=== PATIENT | female | born 1955 | race Caucasian/White ===

== ENCOUNTER 2016-05-11 12:39 | Inpatient (IN) | payer OTHER ==
[~2016-05-11] VITALS: Ht 157.5 cm; Wt 96.1 kg
[~2016-05-11 12:39] MED LIST: ALBU1AER9 INH; ALBU1NEB10 INH; DILT1TAB50 PO; MULTTAB58 PO; NTRGSL/4 UT; OMEP40CA41 PO; ONDA4TAB65 PO; PROP225T PO; RIVA1TAB4 PO
[2016-05-11] MEDS ORDERED: DILTIAZEM BOLUS / DRIP IV STA ×2 (12:57→16:22)
[2016-05-11] MEDS ORDERED: DILTIAZEM HCL INJ 125 MG in DEXTROSE 5% 100ML IV PRN (13:30)
[2016-05-11 13:35] VITALS: BP 124/73; PULSE 77; TEMP 37.4; O2SAT 95; Ht 157.5 cm; Wt 96.1 kg
--- NOTE | 2016-05-11 13:39 | DIAGNOSTIC IMAGING REPORT ---
CHEST ONE VIEW PORTABLE CLINICAL HISTORY: Chest Pain dyspnea COMPARISON STUDY: 03/19/2016 FINDINGS: The bones soft tissues and hemidiaphragms are normal. The cardiomediastinal silhouette is normal. The lungs are clear. The pulmonary vasculature is normal. IMPRESSION: Negative chest. Electronically signed by: Jay Tillman M.D. 05/11/2016 1:37 PM
[2016-05-11] MEDS ORDERED: DILTIAZEM HCL 5 MG/ML 5 ML VIAL IV ONE (14:00)
[2016-05-11 14:39] LABS: BASO % 0.4 %; BASO ABS # 0.05 K/uL (0-0.2); EOS % 1.2 %; HEMATOCRIT 34.3 % (37-47); IG% 0.4 %; LYMPH % 26.9 %; LYMPH ABS # 3.07 K/uL (1.2-3.4); MEAN CELL VOLUME 74.4 fL (80-100); MEAN CORPUSCULAR HGB CONC 30.9 g/dl (32-36); MONO % 8.1 %; PLATELET COUNT 370 K/uL (130-400); RED BLOOD COUNT 4.61 M/uL (4.2-5.4)
[2016-05-11 15:06] LABS: BLOOD UREA NITROGEN 7 mg/dl (7-18); BUN/CREATININE RATIO 10.9 (10-20); CALCIUM 8.7 mg/dl (8.5-10.1); CARBON DIOXIDE 29 mmol/L (21-32); CHLORIDE 106 mmol/L (98-107); CREATININE 0.63 mg/dl (0.60-1.20); GLUCOSE 90 mg/dl (70-99); POTASSIUM 3.5 mmol/L (3.5-5.1); SODIUM 145 mmol/L (136-145)
[2016-05-11 15:19] LABS: COMPLETE YES
[2016-05-11] MEDS ORDERED: MAGNESIUM HYDROXIDE SUSP 30 ML UDC PO PRN (16:00)
[2016-05-11] MEDS ORDERED: ALBUTEROL HFA 8 GM INHALER INH PRN (16:30)
[2016-05-11] MEDS ORDERED: NITROGLYCERIN 0.4 MG SL PER TAB CHARGE UT PRN (16:30)
--- NOTE | 2016-05-11 16:40 | History and Physical ---
History & Physical Date & Time of Service: May 11, 2016 at 16:25 Chief Complaint: Irregular Heartbeat Primary Care Physician: Lorraine Yo PA-C History of Present Illness Source: patient This is a 61 yo f that is suffering from a fibb with RVR with a h/o A fibb. She states that she had been diagnosed with Afibb 2 years prior. She typically does not have any symptoms from her Afibb unless she is in RVR. this episode started last night. She had a 'weird" sensation in her throat and then she could feel palpitations. She decided to check her BP with her machine and noted that she had a lower than normal bp and she noted her HR to be > 130. She took a diltiazem (240 mg) and she felt her HR get under control. This was at approx 2200. Throughout the night she noticed that she would "go in and out" of her palpitations. She attempted to take a second dose of diltiazem at 0430 with some improvement however when it returned at 0800 she decided to call her PCP/ Dr page ([facility]) and they advised that she come into the ED for evaluation. When she arrived she was found to be in Afibb with RVR. She was started on a diltiazem drip and is currently rate controlled with 5 cc/hh. She denies any palpitations, headache, dizziness, tinnitus, chest pain or numbness/ tingling of limbs at this time. She typically takes Xarelto regularly for anticoagulation and is compliant with this medication. She denies any recent illnesses, travel or sick contacts. She follows with [facility] and recently had a stress echo for an upcoming surgery however she does not recall the results of this examination. Her PMHx is significant for an [place] in 2013 and strong family history of CAD Past Medical/Surgical History Medical Problems: (1) CAD (coronary artery disease) Status: Chronic (2) GERD (gastroesophageal reflux disease) Status: Chronic (3) HTN (hypertension) Status: Chronic (4) Migraine Status: Chronic (5) Myocardial infarction Status: Resolved (6) PAF (paroxysmal atrial fibrillation) Status: Chronic Surgical Problems: (1) History of tubal ligation Status: Resolved Family History Diabetes mellitus Heart disease Social History Smoking Status: Never Smoker Smokeless Tobacco Use: No Alcohol Use: occasionally Drug Use: none Marital Status: Housing status: lives alone Occupational Status: disabled Immunizations History of Influenza Vaccine: No History of Tetanus Vaccine?: Yes Tetanus Immunization Date: Apr 06, 2010 History of Pneumococcal: Yes Pneumococcal Date: Jan 30, 2009 History of Hepatitis B Vaccine: Yes Multi-Drug Resistant Organisms History of MDRO: No Allergies Coded Allergies: Sulfa Antibiotics (Verified Allergy, Intermediate, METAL TASTE IN MOUTH, TONGUE SWELLS UP, 05/11/16) Latex1 -Allergic Contact Dermititis (Verified Allergy, Unknown, RASH, ) Home Medications Scheduled Diltiazem HCl Coated Beads (Diltiazem HCl ER), 240 MG PO QAM Multiple Vitamin (Multivitamin), 1 TAB PO QAM Omeprazole (Prilosec), 40 MG PO QAM Propafenone Hcl (Propafenone Hcl), 1 TAB PO TID Rivaroxaban (Xarelto), 20 MG PO QPM Scheduled PRN Albuterol Soln (Ventolin Soln), 1 VIAL INH BID PRN for Shortness of Breath Albuterol Sulfate (Proair Hfa), 2 PUFFS INH QID PRN for Shortness of Breath Nitroglycerin (Nitrostat), 0.4 MG UT UD PRN for Chest Pain Review of Systems Constitutional: No fever Eyes: No worsening of vision ENT: No hearing loss Respiratory: No cough, No dyspnea at rest, No dyspnea on exertion, No shortness of breath, No sputum, No wheezing Cardiovascular: No chest pain Abdomen: No constipation, No diarrhea, No nausea, No pain, No vomiting Musculoskeletal: No joint pain, No muscle pain Genitourinary - Female: No dysuria Neurologic: No memory loss, No numbness/tingling, No weakness Endocrine: No fatigue Integumentary: No rash Physical Exam Vital Signs Date Time Temp Pulse Resp B/P Pulse Ox O2 Delivery O2 Flow Rate FiO2 05/11/16 15:33 74 20 117/75 05/11/16 15:04 100 20 05/11/16 14:54 110 26 05/11/16 14:49 101 21 05/11/16 14:44 106 23 05/11/16 14:34 119 20 05/11/16 14:29 112 24 05/11/16 14:24 106 18 05/11/16 14:14 92 18 05/11/16 14:04 106 17 122/78 95 Room Air 05/11/16 13:39 107 23 05/11/16 13:35 95 Room Air 05/11/16 13:34 113 23 05/11/16 13:29 93 17 110/77 05/11/16 13:24 90 16 05/11/16 13:19 117 16 05/11/16 13:14 92 20 120/91 05/11/16 13:09 99 20 95 Room Air 05/11/16 13:05 95 Room Air 05/11/16 12:59 94 29 113/80 96 Room Air 05/11/16 12:57 119 05/11/16 12:54 99 23 125/77 98 Room Air 05/11/16 12:53 37.1 90 20 113/80 95 Room Air General Appearance: WD/WN, no apparent distress Head: normocephalic, atraumatic Eyes: normal inspection ENT: normal ENT inspection Neck: supple Respiratory/Chest: lungs clear, normal breath sounds, no respiratory distress, no accessory muscle use Cardiovascular: no murmur, + irregularly irregular Abdomen/GI: normal bowel sounds, non tender, soft Back: normal inspection Extremities/Musculoskelatal: no calf tenderness, no pedal edema Neurologic/Psych: alert, normal mood/affect, oriented x 3 Skin: normal color, warm/dry, no rash Lymphatic: no adenopathy Diagnostics Laboratory Results Results Past 24 Hours Test 05/11/16 14:21 Range/Units White Blood Count 11.40 4.8-10.8 K/uL Red Blood Count 4.61 4.2-5.4 M/uL Hemoglobin 10.6 12.0-16.0 g/dL Hematocrit 34.3 37-47 % Mean Corpuscular Volume 74.4 80-100 fL Mean Corpuscular Hemoglobin 23.0 25-34 pg Mean Corpuscular Hemoglobin Concent 30.9 32-36 g/dl Platelet Count 370 130-400 K/uL Mean Platelet Volume 10.0 7.4-10.4 fL Neutrophils (%) (Auto) 63.0 % Lymphocytes (%) (Auto) 26.9 % Monocytes (%) (Auto) 8.1 % Eosinophils (%) (Auto) 1.2 % Basophils (%) (Auto) 0.4 % Neutrophils # (Auto) 7.18 1.4-6.5 K/uL Lymphocytes # (Auto) 3.07 1.2-3.4 K/uL Monocytes # (Auto) 0.92 0.11-0.59 K/uL Eosinophils # (Auto) 0.14 0-0.5 K/uL Basophils # (Auto) 0.05 0-0.2 K/uL RDW Standard Deviation 44.0 36.4-46.3 fL RDW Coefficient of Variation 16.1 11.5-14.5 % Immature Granulocyte % (Auto) 0.4 % Immature Granulocyte # (Auto) 0.04 0.00-0.02 K/uL Red Blood Cell Morphology Unremarkable Sodium Level 145 136-145 mmol/L Potassium Level 3.5 3.5-5.1 mmol/L Chloride Level 106 98-107 mmol/L Carbon Dioxide Level 29 21-32 mmol/L Anion Gap 10.0 3-11 mmol/L Blood Urea Nitrogen 7 7-18 mg/dl Creatinine 0.63 0.60-1.20 mg/dl Est Creatinine Clear Calc Drug Dose 102.7 ml/min Estimated GFR () 113.8 Estimated GFR (Non- 98.2 BUN/Creatinine Ratio 10.9 10-20 Random Glucose 90 70-99 mg/dl Calcium Level 8.7 8.5-10.1 mg/dl Total Creatine Kinase 55 26-192 U/L Creatine Kinase MB < 0.5 0.5-3.6 ng/ml Creatine Kinase MB Ratio 0-3.0 Troponin I < 0.015 0-0.045 ng/ml Diagnostic Radiology [~ rep ct add3]] CHEST ONE VIEW PORTABLE CLINICAL HISTORY: Chest Pain dyspnea COMPARISON STUDY: 03/19/2016 FINDINGS: The bones soft tissues and hemidiaphragms are normal. The cardiomediastinal silhouette is normal. The lungs are clear. The pulmonary vasculature is normal. IMPRESSION: Negative chest. EKG bpm 97 no ectopic beats Afibb on EKG no ischemic changes Impression Assessment and Plan This is a 61 yo f that is suffering from afibb with RVR and a significant CVS history Afibb with RVR - tele admission - Diltiazem drip cont'd - TSH - will defer echo for now - troponin x 3 - magnesium - UA to r/o infection as cause for exacerbation HTN - cont home meds CAD - cont home meds COPD - cont home meds DVT Prophylaxis - Xarelto FULL CODE Level of Care Telemetry Advanced Directives Existing Advance Directive: No Existing Living Will: No Existing Power of Bone Worker: No Resuscitation Status FULL RESUSCITATION VTE Prophylaxis VTE Risk Assessment Done? Y/N: Yes Risk Level: Moderate Given or contraindicated: Other Anticoagulation Social Service Consult None Apply Note Total Time: Critical Care 30 - 74 minutes I evaluated this patient and performed a physical exam. I reviewed the orders and read this note by Dr. Jacqueline Ashley M.D. I agree with the orders and the entire contents of this note. Additional Copies To Lorraine Yo PA-C
--- NOTE | 2016-05-11 18:46 | EMERGENCY ROOM VISIT NOTE ---
History Report prepared by Gris: Aide Berger Under the Supervision of: Dr. Emmanuel Ariza D.O. First contact with patient: 12:39 Stated Complaint: IRREGULAR HEARTBEAT History of Present Illness The patient is a 61 year old female who presents to the Emergency Room with complaints of a persistent irregular heartbeat that started last night. The patient came to the ED via ambulance and was given a Cardizem shot en route. The patient states that she started to experience palpitations last night but they were intermittent and kept resolving. She has a history of atrial fibrillation. She takes Xarelto and 240 mg of Cardizem. She has not missed any doses. The patient experienced chest pressure this morning around [id number], along with the palpitations and shortness of breath.The chest pressure has resolved since then and she describes the chest pain as an ache. The patient states that she got out of her recliner this morning and her blood pressure was 120/93 which is low for her. She called her PCP and they recommended coming into the ED for further evaluation. She denies cough, rhinorrhea, sorethroat, nausea, vomiting, and diarrhea. The patient was admitted 7 times in the last 2 years for the same symptoms. The patient had a [place] in 2013 and her current symptoms don't feel similar to that. She adds that she fell on ice recently and had bruising on her right leg along with edema. She denies any history of blood clots. Source of History: patient Onset: last night Position: chest Quality: other (irregular heartbeat) Timing: other (persistent) Associated Symptoms: + SOB, + chest pain (pressure this morning, ache now), No cough, No diarrhea, No nausea, No sorethroat, No vomiting Note: no rhinorrhea Review of Systems See HPI for pertinent positives & negatives. A total of 10 systems reviewed and were otherwise negative. Past Medical & Surgical Medical Problems: (1) Arrhythmia (2) CAD (coronary artery disease) (3) GERD (gastroesophageal reflux disease) (4) HTN (hypertension) (5) Migraine (6) Myocardial infarction (7) PAF (paroxysmal atrial fibrillation) Surgical Problems: (1) History of tubal ligation Family History Diabetes mellitus Heart disease Social History Smoking Status: Never Smoker Drug Use: none Marital Status: Occupation Status: disabled Current/Historical Medications Scheduled Diltiazem HCl Coated Beads (Diltiazem HCl ER), 240 MG PO QAM Multiple Vitamin (Multivitamin), 1 TAB PO QAM Omeprazole (Prilosec), 40 MG PO QAM Propafenone Hcl (Propafenone Hcl), 1 TAB PO TID Rivaroxaban (Xarelto), 20 MG PO QPM Scheduled PRN Albuterol Soln (Ventolin Soln), 1 VIAL INH BID PRN for Shortness of Breath Albuterol Sulfate (Proair Hfa), 2 PUFFS INH QID PRN for Shortness of Breath Nitroglycerin (Nitrostat), 0.4 MG UT UD PRN for Chest Pain Allergies Coded Allergies: Sulfa Antibiotics (Verified Allergy, Intermediate, METAL TASTE IN MOUTH, TONGUE SWELLS UP, 05/11/16) Latex1 -Allergic Contact Dermititis (Verified Allergy, Unknown, RASH, ) Physical Exam Vital Signs Date Time Temp Pulse Resp B/P Pulse Ox O2 Delivery O2 Flow Rate FiO2 05/11/16 15:33 74 20 117/75 05/11/16 15:04 100 20 05/11/16 14:54 110 26 05/11/16 14:49 101 21 05/11/16 14:44 106 23 05/11/16 14:34 119 20 05/11/16 14:29 112 24 05/11/16 14:24 106 18 05/11/16 14:14 92 18 05/11/16 14:04 106 17 122/78 95 Room Air 05/11/16 13:39 107 23 05/11/16 13:35 37.4 77 20 124/73 95 Room Air 05/11/16 13:34 113 23 05/11/16 13:29 93 17 110/77 05/11/16 13:24 90 16 05/11/16 13:19 117 16 05/11/16 13:14 92 20 120/91 05/11/16 13:09 99 20 95 Room Air 05/11/16 13:05 95 Room Air 05/11/16 12:59 94 29 113/80 96 Room Air 05/11/16 12:57 119 05/11/16 12:54 99 23 125/77 98 Room Air 05/11/16 12:53 37.1 90 20 113/80 95 Room Air Physical Exam GENERAL: alert, sitting up in bed, well appearing, well nourished, no acute distress, non-toxic EYE EXAM: normal conjunctiva OROPHARYNX: no exudate, no erythema, lips, buccal mucosa, and tongue normal and mucous membranes are moist NECK: supple, no nuchal rigidity, no adenopathy, non-tender LUNGS: Clear to auscultation. Normal chest wall mechanics HEART: tachycardic rate, irregularly irregular rhythm, no murmurs, S1 normal and S2 normal ABDOMEN: abdomen soft, non-tender, normo-active bowel sounds, no masses, no rebound or guarding. BACK: Back is symmetrical on inspection and there is no deformity, no midline tenderness, no CVA tenderness. SKIN: no rashes and no bruising UPPER EXTREMITIES: upper extremities are grossly normal. LOWER EXTREMITIES: No pitting edema. Calves equal bilaterally. NEURO EXAM: Normal sensorium, cranial nerves II-XII grossly intact, normal speech, no gross weakness of arms, no gross weakness of legs. Medical Decision & Procedures ER Provider Diagnostic Interpretation: Xray results per the radiologist and my interpretation. CHEST ONE VIEW PORTABLE CLINICAL HISTORY: Chest Pain dyspnea COMPARISON STUDY: 03/19/2016 FINDINGS: The bones soft tissues and hemidiaphragms are normal. The cardiomediastinal silhouette is normal. The lungs are clear. The pulmonary vasculature is normal. IMPRESSION: Negative chest. Electronically signed by: Jay Tillman M.D. 05/11/2016 1:37 PM Laboratory Results 05/11/16 14:21 Red Blood Count 4.61, Mean Corpuscular Volume 74.4, Mean Corpuscular Hemoglobin 23.0, Mean Corpuscular Hemoglobin Concent 30.9, Mean Platelet Volume 10.0, Neutrophils (%) (Auto) 63.0, Lymphocytes (%) (Auto) 26.9, Monocytes (%) (Auto) 8.1, Eosinophils (%) (Auto) 1.2, Basophils (%) (Auto) 0.4, Neutrophils # (Auto) 7.18, Lymphocytes # (Auto) 3.07, Monocytes # (Auto) 0.92, Eosinophils # (Auto) 0.14, Basophils # (Auto) 0.05 05/11/16 14:21 Test 05/11/16 14:21 White Blood Count 11.40 K/uL (4.8-10.8) Red Blood Count 4.61 M/uL (4.2-5.4) Hemoglobin 10.6 g/dL (12.0-16.0) Hematocrit 34.3 % (37-47) Mean Corpuscular Volume 74.4 fL (80-100) Mean Corpuscular Hemoglobin 23.0 pg (25-34) Mean Corpuscular Hemoglobin Concent 30.9 g/dl (32-36) Platelet Count 370 K/uL (130-400) Mean Platelet Volume 10.0 fL (7.4-10.4) Neutrophils (%) (Auto) 63.0 % Lymphocytes (%) (Auto) 26.9 % Monocytes (%) (Auto) 8.1 % Eosinophils (%) (Auto) 1.2 % Basophils (%) (Auto) 0.4 % Neutrophils # (Auto) 7.18 K/uL (1.4-6.5) Lymphocytes # (Auto) 3.07 K/uL (1.2-3.4) Monocytes # (Auto) 0.92 K/uL (0.11-0.59) Eosinophils # (Auto) 0.14 K/uL (0-0.5) Basophils # (Auto) 0.05 K/uL (0-0.2) RDW Standard Deviation 44.0 fL (36.4-46.3) RDW Coefficient of Variation 16.1 % (11.5-14.5) Immature Granulocyte % (Auto) 0.4 % Immature Granulocyte # (Auto) 0.04 K/uL (0.00-0.02) Red Blood Cell Morphology Unremarkable Anion Gap 10.0 mmol/L (3-11) Est Creatinine Clear Calc Drug Dose 102.7 ml/min Estimated GFR () 113.8 Estimated GFR (Non- 98.2 BUN/Creatinine Ratio 10.9 (10-20) Calcium Level 8.7 mg/dl (8.5-10.1) Total Creatine Kinase 55 U/L (26-192) Creatine Kinase MB < 0.5 ng/ml (0.5-3.6) Creatine Kinase MB Ratio (0-3.0) Troponin I < 0.015 ng/ml (0-0.045) Laboratory results per my review. Medications Administered Medications (Trade) Dose Ordered Sig/Aicha Route Start Time Stop Time Status Last Admin Dose Admin Diltiazem HCl 1 ea 1 ea NOW STAT IV 05/11/16 12:57 05/11/16 12:58 DC 05/11/16 12:57 1 EA Diltiazem HCl/ Dextrose (Cardizem Inj/D5 100ml) 125 ml @ 0 mls/hr Q0M PRN IV 05/11/16 13:30 06/10/16 13:29 05/11/16 13:31 5 MLS/HR Diltiazem HCl (Cardizem Inj) 5 mg TODAY@1400 ONCE IV 05/11/16 14:00 05/11/16 14:01 DC 05/11/16 14:05 5 MG ECG Indication: chest pain, palpitations Rate (beats per minute): 97 Rhythm: atrial fibrillation Findings: T-wave inversion (Lateral), other (normal axis) ED Course ED COURSE: Vital signs were reviewed and showed normal. The patients medical record was reviewed The above diagnostic studies were performed and reviewed. ED treatments and interventions as stated above. 1247: The patient was evaluated in room A12. A complete history and physical examination was performed. 1257: Ordered Cardizem Bolus/Drip 1 ea IV 1330: Ordered Diltiazem HCl 125 mg/Dextrose 125 ml @ 0 mls/hr Protocol IV 1350: I reassessed and updated the patient. 1400: Ordered Diltiazem HCl 5 mg IV 1505: I reevaluated and updated the patient. 1540: I reviewed the patient's case with Dr. Alvino DAVIDSON. He will evaluate the patient for further management. 1544: Upon reevaluation, the patient is resting comfortably. I discussed my findings with the patient and she understands and agrees with the treatment plan. Based on the patients age, coexisting illnesses, exam and lab findings the decision to treat as an inpatient was made. The patient remained stable while under my care. The patient will be evaluated for further management. Medical Decision Differential diagnoses includes but is not limited to acute coronary syndrome, myocardial infarction, pericarditis, pulmonary embolus, aortic dissection, pneumonia, pneumothorax, musculoskeletal, shingles, esophageal. Patient is a 61-year-old female with medical command call on. Patient notes that she started having severe chest pressure along with palpitations and she does have a history of A. fib and is on a Xa inhibitor. The medics found her to be in A. fib with RVR. I gave medical command instructed them to give 10 mg of Cardizem. Upon presentation she still in A. fib with RVR. She is given additional bolus of 5 mg and placed on a drip. Her symptoms have improved/ almost completely resolved. She is still slightly tachycardic. Labs show a mild anemia with an unremarkable BMP. Troponin was negative. Case is discussed with internal medicine she is admitted for A. fib with RVR and severe chest pain which resolved. Consults Time Called: 1521 Consulting Physician: Dr. Alvino DAVIDSON Returned Call: [phone] I reviewed the patient's case with Dr. Alvino DAVIDSON. He will evaluate the patient for further management. Impression Primary Impression: Atrial fibrillation with RVR Critical Care I have personally spent 35 minutes of critical care time in the direct management of this patient. This includes bedside care, interpretation of diagnostic studies, and testing, discussion with consultants, patient, and family members, and other required patient management activities. This 35 minutes is in excess of all separately billable procedures. Scribe Attestation The scribe's documentation has been prepared under my direction and personally reviewed by me in its entirety. I confirm that the note above accurately reflects all work, treatment, procedures, and medical decision making performed by me. Departure Information Dispostion Being Evaluated By Hospitalist Lorraine Jolley PA-C (PCP)
[2016-05-11 18:49] VITALS: BP 110/55; PULSE 78; TEMP 37.3; O2SAT 95
[2016-05-11] MEDS: PROPAFENONE HCL 150 MG TAB PO SCH (19:54)
[2016-05-11] MEDS: RIVAROXABAN 10 MG TAB PO SCH (19:54)
[2016-05-11] MEDS: ONDANSETRON INJ 2 MG/ML 2 ML VIAL IV PRN (19:57)
[2016-05-12 00:25] VITALS: BP 105/62; PULSE 83; TEMP 37.4; O2SAT 93
[2016-05-12 03:59] LABS: URINE APPEARANCE CLEAR (CLEAR); URINE BILIRUBIN NEG (NEG); URINE COLOR YELLOW; URINE EPITHELIAL CELL AUTO >30 /lpf (0-5); URINE NITRITE NEG (NEG); URINE PH 5.5 (4.5-7.5); URINE SPECIFIC GRAVITY 1.015 (1.000-1.030); UROBILINOGEN NEG (NEG); ZZUR CULT IF INDIC CLEAN CATCH NO
[2016-05-12 04:00] VITALS: BP 134/71; PULSE 71; TEMP 37.3; O2SAT 94
[2016-05-12 04:00] LABS: MANUAL MICROSCOPIC REQUIRED? NO; REVIEW REQ? NO
[2016-05-12 04:42] LABS: HEMATOCRIT 29.5 % (37-47); MEAN CELL VOLUME 74.9 fL (80-100); MEAN CORPUSCULAR HEMOGLOBIN 22.8 pg (25-34); MEAN CORPUSCULAR HGB CONC 30.5 g/dl (32-36); MEAN PLATELET VOLUME 9.1 fL (7.4-10.4); PLATELET COUNT 334 K/uL (130-400); RED BLOOD COUNT 3.94 M/uL (4.2-5.4)
[2016-05-12 05:00] LABS: BUN/CREATININE RATIO 15.8 (10-20); CALCIUM 8.4 mg/dl (8.5-10.1); CARBON DIOXIDE 28 mmol/L (21-32); CHLORIDE 105 mmol/L (98-107); GLUCOSE 115 mg/dl (70-99); MAGNESIUM 2.1 mg/dl (1.8-2.4); POTASSIUM 3.3 mmol/L (3.5-5.1); SODIUM 144 mmol/L (136-145)
[2016-05-12 06:23] LABS: BLOOD UREA NITROGEN 13 mg/dl (7-18)
[2016-05-12 07:24] VITALS: BP 128/77; PULSE 83; TEMP 37.1; O2SAT 93
[2016-05-12] MEDS: MULTIVITAMIN TAB PO SCH (07:46)
[2016-05-12] MEDS: DILTIAZEM HCL 240 MG CAPCR PO SCH (07:46)
[2016-05-12] MEDS: PROPAFENONE HCL 150 MG TAB PO SCH ×2 (07:46→13:16)
[2016-05-12] MEDS: PANTOprazole SOD 40 MG TAB PO SCH (07:46)
[2016-05-12] MEDS ORDERED: COUGH DROP (SUGAR FREE) LOZ 24 LOZ/1 BOX ONE (07:48)
[2016-05-12] MEDS: ACETAMINOPHEN 325 MG TAB PO PRN (08:09)
--- NOTE | 2016-05-12 09:11 | Clinical Documentation Query ---
DIETER Elise : CLINICAL DOCUMENTATION QUERY Patient is a 61 year old female admitted for recurrent atrial fibrillation with RVR. Hematology review demonstrates a hemoglobin and hematocrit of 9.0 g/dl and 29.5%. Red cell indices demonstrate a microcytic, hypochromic anemia. Please specify the suspected etiology of anemia in your patient. In your clinical opinion, does you patient have: ( ) Iron deficiency anemia ( ) Other explanation of clinical findings (Please Explain) ( ) Unable to determine (Please Define) ( ) Need to Discuss ( ) Not Agree The medical record reflects the following clinical findings, treatment, and risk factors. Clinical Indicators: As above Treatment: MVI, unknown if formulation contains Iron. Risk Factors: Gender, ?occult blood loss, on Xarelto, ?idiopathic Please clarify and document your clinical opinion in the progress notes and discharge summary. Terms such as "probable", "suspected", "likely", "questionable", "possible", or "still to be ruled out" are acceptable. IF IN AGREEMENT, YOU MUST DOCUMENT ABOVE DIAGNOSTIC STATEMENT IN DAILY PROGRESS NOTES AND DISCHARGE SUMMARY. This document is not part of the patient's record. Thank You, Jamie Lao, RN [phone]
[2016-05-12] MEDS ORDERED: POTASSIUM CHLORIDE 10 MEQ TABCR PO STA (09:20)
--- NOTE | 2016-05-12 10:21 | CARDIOLOGY CONSULTATION ---
DATE OF CONSULTATION: 05/12/2016 DATE OF CONSULTATION: 05/12/2016. This is a consultation for the hospitalist service. REASON FOR CONSULTATION: Paroxysmal atrial fibrillation. HISTORY OF PRESENT ILLNESS: This is a 61-year-old female who I first saw in early March at my clinic. She has a long history of atypical chest pain and heart palpitations but also has documented paroxysmal atrial fibrillation. She had been cared for by [facility] which released her from their practice because of noncompliance with followups and frequent cancellations along with noncompliance with medications. She has an implanted loop monitor which is still functioning. In 2013 because of atypical chest pain she did undergo cardiac catheterization which showed essentially normal coronaries. She has normal LV function by noninvasive imaging. During her first visit, she had complaints of frequent episodes of atrial fibrillation. With a loop monitor she has a patient event tracker where she is able to press a button when she feels she is having symptoms. When we interrogated this device, it indicated that she had had 2 episodes of paroxysmal atrial fibrillation, 1 lasting approximately 20 minutes and another 50 minutes from November 06 through March, but she had indicated with the event button over 40 episodes of atrial fibrillation. So, although she does have paroxysmal atrial fibrillation she does have a lot of atypical heart palpitations and chest discomfort which may be brought on by anxiety. She was tried on flecainide initially which she either had breakthrough or could not tolerate this medication and was switched to propafenone 225 mg 3 times a day. She states that she cannot tolerate this medication and actually takes it only twice a day due to nausea. Yesterday she was admitted with atrial fibrillation and RVR. The patient states that her discomfort started several hours before her admission and she did take extra doses of diltiazem, therefore she presented to the Emergency Department. Sometime between her admission and my evaluation, she has converted to a normal sinus rhythm. She is comfortable sitting in a chair and has no complaints. She has been on Xarelto as an anticoagulant. Her admission blood counts are on the low side with her most recent hemoglobin being 9.0. The patient has not had any bleeding episodes. She denies melena or hematochezia. She has never had a colonoscopy. ALLERGIES: SULFA ANTIBIOTICS AND BACTRIM. PAST MEDICAL HISTORY: As per the history of chief complaint, and in addition, the patient has had a history of migraine headaches and allergic rhinitis. She has no history of diabetes, hypercholesterolemia, strokes or kidney disease. SOCIAL HISTORY: She is a . She has never smoked. FAMILY MEDICAL HISTORY: Noncontributory. REVIEW OF SYSTEMS: The 10-point review of systems is negative except for the history of chief complaint. PHYSICAL EXAMINATION: GENERAL: She is alert and oriented in no acute distress. She is currently in normal sinus rhythm on telemetry. VITAL SIGNS: Blood pressure is 130/70, pulse is regular at 71. She is afebrile. HEAD, EYES, EARS, NOSE, AND THROAT: She is normocephalic. Pupils are equal and reactive to light. Extraocular muscles are intact bilaterally. NECK: The neck veins are flat. Carotids have good upstrokes bilaterally without bruits. Thyroid is nonpalpable. RESPIRATORY: Breath sounds equal bilaterally and clear to auscultation. CARDIOVASCULAR: Heart has a regular rhythm. Normal S1, S2. No S3, S4. No cardiac rubs or murmurs. GASTROINTESTINAL: Abdomen is soft, nontender without organomegaly. EXTREMITIES: Free of edema, digit clubbing, or cyanosis. NEUROLOGIC: Grossly intact. SKIN: Warm to touch. LYMPH NODES: Negative to palpation. LABORATORY DATA: Hemoglobin is 9.0. WBC count is 10.7, potassium is 3.3, creatinine is 0.8. Cardiac markers are negative. IMPRESSION: 1. Paroxysmal atrial fibrillation. 2. History of atypical chest pain and heart palpitations. 3. Anemia. 4. R/O Sleep Apnea RECOMMENDATIONS: The patient is currently in a sinus rhythm. I think we should take this opportunity and allow electrophysiology to evaluate her and make recommendations regarding antiarrhythmic medications. She seems to not be able to tolerate the propafenone due to chronic nausea. Unfortunately, due to her previous history it is uncertain as to whether the propafenone is causing the nausea or she just has nausea symptoms. It should be noted that she had a negative nuclear stress test as an outpatient through our office in March which was negative. I have sent labs off to evaluate her anemia while she is in the hospital. We will wait to see what electrophysiology wants to do regarding her arrhythmia. She would also benefit from a sleep evaluation. THAO
[2016-05-12 10:30] LABS: ALKALINE PHOSPHATASE 69 U/L (45-117); ALT/SGPT 26 U/L (12-78); AST/SGOT 13 U/L (15-37)
[2016-05-12 10:31] LABS: FERRITIN 11.3 ng/ml (8.0-388.0)
[2016-05-12 11:13] VITALS: BP 108/69; PULSE 67; TEMP 36.8; O2SAT 94
[2016-05-12] MEDS: ONDANSETRON INJ 2 MG/ML 2 ML VIAL IV PRN (13:20)
[2016-05-12] MEDS ORDERED: NURSING VERBAL MED ORDER ONE (14:45)
[2016-05-12 15:50] VITALS: BP 114/67; PULSE 68; TEMP 36.9; O2SAT 94
--- NOTE | 2016-05-12 16:58 | Progress Note ---
Progress Note Full EP consult dictated; pt with recurrent pAF symptomatic despite propafenone plus pt having alot of GI symptoms with propafenone. Recommend washing out propafenone and starting sotalol 80mg BID on Tuesday05/14/2015. Pt will need to be monitored for 6 doses of sotalol prior to discharge. If pt has recurrent AF during washout recommend IV Cardizem.
--- NOTE | 2016-05-12 17:35 | Hospitalist Progress Note ---
Hospitalist Progress Note Date of Service May 12, 2016. Subjective Pt evaluation today including: conversation w/ patient, physical exam, chart review, lab review, review of studies, review of inpatient medication list Patient remains in sinus. She will be converting to sotalol as in patient over the next 4 days. Additional Comments: A 10 system review was performed and all were negative. Positives were placed in the subjective section. Objective Vital Signs Date Time Temp Pulse Resp B/P Pulse Ox O2 Delivery O2 Flow Rate FiO2 05/12/16 15:50 36.9 68 22 114/67 94 Room Air 05/12/16 15:47 Room Air 05/12/16 12:00 Room Air 05/12/16 11:13 36.8 67 18 108/69 94 Room Air 05/12/16 08:00 Room Air 05/12/16 07:24 37.1 83 18 128/77 93 Room Air 05/12/16 04:00 37.3 71 20 134/71 94 Room Air 05/12/16 04:00 Room Air 05/12/16 00:25 37.4 83 16 105/62 93 Room Air 05/12/16 00:01 Room Air 05/11/16 18:49 37.3 78 20 110/55 95 Room Air Physical Exam Notes: GEN: Awake, alert, and oriented x 3. Not in acute distress HEENT: Tm's intact, no inflammation, EOMI, PERRLA, MMM Neck: Soft, supple Lungs: CTA b/l, no r/r/w Heart: REG, nrl S1S2 without murmurs, rubs or gallops Abdomen: Soft, NT, ND, + BS EXT: No C/C/E NEURO: CN's II-XII grossly intact, non-focal Skin: warm, dry, no rashes PSYCH: pleasant, cooperative, no signs of significant anxiety or depression. Laboratory Results Last 24 Hours Test 05/11/16 20:10 05/12/16 02:20 05/12/16 04:29 05/12/16 09:52 Troponin I < 0.015 ng/ml < 0.015 ng/ml Urine Color YELLOW Urine Appearance CLEAR Urine pH 5.5 Urine Specific [place] 1.015 Urine Protein NEG Urine Glucose (UA) NEG Urine Ketones NEG Urine Occult Blood NEG Urine Nitrite NEG Urine Bilirubin NEG Urine Urobilinogen NEG Urine Leukocyte Esterase TRACE Urine WBC (Auto) 1-5 /hpf Urine RBC (Auto) 0-4 /hpf Urine Hyaline Casts (Auto) 0 /lpf Urine Epithelial Cells (Auto) >30 /lpf Urine Bacteria (Auto) NEG White Blood Count 10.70 K/uL Red Blood Count 3.94 M/uL Hemoglobin 9.0 g/dL Hematocrit 29.5 % Mean Corpuscular Volume 74.9 fL Mean Corpuscular Hemoglobin 22.8 pg Mean Corpuscular Hemoglobin Concent 30.5 g/dl RDW Standard Deviation 43.9 fL RDW Coefficient of Variation 16.1 % Platelet Count 334 K/uL Mean Platelet Volume 9.1 fL Sodium Level 144 mmol/L Potassium Level 3.3 mmol/L Chloride Level 105 mmol/L Carbon Dioxide Level 28 mmol/L Anion Gap 11.0 mmol/L Blood Urea Nitrogen 13 mg/dl Creatinine 0.80 mg/dl Est Creatinine Clear Calc Drug Dose 80.9 ml/min Estimated GFR () 93.5 Estimated GFR (Non- 80.7 BUN/Creatinine Ratio 15.8 Random Glucose 115 mg/dl Calcium Level 8.4 mg/dl Magnesium Level 2.1 mg/dl Thyroid Stimulating Hormone (TSH) 1.090 uIu/ml Iron Level 36 mcg/dl Total Iron Binding Capacity 332 mcg/dl Transferrin 273 mg/dl Transferrin % Saturation 9 % Ferritin 11.3 ng/ml Total Bilirubin 0.3 mg/dl Direct Bilirubin < 0.1 mg/dl Aspartate Amino Transf (AST/SGOT) 13 U/L Alanine Aminotransferase (ALT/SGPT) 26 U/L Alkaline Phosphatase 69 U/L Total Protein 7.8 gm/dl Albumin 3.2 gm/dl Vitamin B12 Level 286 pg/mL Folate 20.30 ng/mL Test 05/12/16 12:15 Troponin I < 0.015 ng/ml Assessment and Plan 1) A.Fib with RVR - converted to sinus. -Cardizem gtt D/C'd -wash out propafenone - Start Sotalol in 2 days then monitor for 2 days. 2) HTN - stable 3) COPD - cont home meds DVT Prophylaxis - Xarelto covers.
[2016-05-12 19:37] VITALS: BP 120/75; PULSE 71; TEMP 36.8; O2SAT 98
[2016-05-12] MEDS: RIVAROXABAN 10 MG TAB PO SCH (20:09)
[2016-05-13] VITALS (8 sets, daily range): BP systolic 108–157; BP diastolic 64–81; PULSE 69–83; TEMP 36.8–37.8; O2SAT 91–97
--- NOTE | 2016-05-13 05:55 | CARDIOLOGY CONSULTATION ---
DATE OF CONSULTATION: 05/12/2016 ELECTROPHYSIOLOGY CONSULT REFERRING PHYSICIAN: Dr. Ivan Burks. REASON FOR CONSULTATION: Paroxysmal atrial fibrillation. HISTORY OF PRESENT ILLNESS: This is a 61-year-old female who has a past medical history over the last 2 years of paroxysmal atrial fibrillation. She was cardioverted once in the past 2 years. She has had about 12 hospital admissions for recurrent atrial fibrillation in the past 2 years. She has been on flecainide but then had refractory atrial fib, so was changed to propafenone. She is intolerant to propafenone and also has some noncompliance with it due to GI symptoms of nausea. She had been doing pretty well this past year from an AFib standpoint. Over the last 2 weeks, she did have GI bug and 2 nights ago, she woke up with sudden palpitations and some discomfort in her neck, was found to be in AFib and when she presented to the Emergency Room. Of note, she did have a link implanted back in 2014 and this has shown in the past some atrial fibrillation and her symptoms correlating to that but there are times where her symptoms are not correlating to it. She converted to normal sinus rhythm in the Emergency Department. She has remained in sinus rhythm, she remains on Xarelto and her neck discomfort and palpitations have stopped since being in sinus rhythm. PAST MEDICAL HISTORY: Paroxysmal atrial fibrillation, headaches, hypertension, allergic rhinitis. PAST SURGICAL HISTORY: Link insertion. ALLERGIES: SULFA AND BACTRIM. SOCIAL HISTORY: She is a lifelong nonsmoker, rare alcohol use, a . FAMILY HISTORY: Noncontributory. REVIEW OF SYSTEMS: All other 10-point review of systems is negative. See HPI for pertinent positives. PHYSICAL EXAMINATION: VITAL SIGNS: Temperature 36.8 degrees Celsius, heart rate 67, respirations 18, oxygen saturation 94% on room air, blood pressure 108/69 on telemetry, she is currently in sinus rhythm and has been in sinus rhythm since being brought up to the Emergency Room about 2 days ago. GENERAL: She is awake, alert, oriented x3 in no acute distress, sitting up in chair comfortably. HEENT: Normocephalic, atraumatic. Extraocular motion intact. Sclera is nonicteric. Mucous membranes moist. NECK: Supple, no carotid bruit appreciated. No JVD. Carotid upstrokes normal. CARDIOVASCULAR: Normal S1, S2. Regular rate and rhythm, no murmur appreciated. PULMONARY: Clear to auscultation bilaterally. No wheezes, rales, or rhonchi. ABDOMEN: Positive bowel sounds, soft, nontender, nondistended. EXTREMITIES: No clubbing or cyanosis of bilateral fingers. No edema of the bilateral lower extremities. Peripheral pulses intact. NEUROLOGIC: Grossly intact. SKIN: Grossly intact. PERTINENT TESTING: ECG on admission with atrial fibrillation, 97 beats per minute, nonspecific T waves in the lateral leads. Echocardiogram from back in March 2016, ejection fraction is preserved at 60%, moderate LVH, grade 1 diastolic dysfunction and mild MAC. Chest x-ray on admission is negative. Hematology: WBCs 10, hemoglobin 9, hematocrit 29, platelets 334. Chemistry: Sodium 144, potassium 3.3, chloride 105, carbon dioxide 28, BUN 13, creatinine 0.8, glucose 115, calcium 8.4, magnesium 2.1. TSH 1.09. Device link interrogation from 03/20/2016 to May 12, she has had about 22 hours of atrial fibrillation which correlates to about 1.7% burden. She did hit the symptom by end of the night when she presented to the Emergency Room and it did correlate with atrial fibrillation with a rapid ventricular response, sometimes up into the 150s. An AF episode on May 11 at 8 in the morning showed that she was in AFib for a little bit and then converted to probably sinus rhythm but then back in AFib. The duration of AFib was about 7.6 hours with an average ventricular rate of 160. It looks like the longest AFib burden was about 13 hours on May 10. Prior to that, looks like on 12/27/2014, she had about 7 hours. IMPRESSION: 1. Paroxysmal atrial fibrillation, symptomatic refractory to flecainide and propafenone, remains on Xarelto. 2. Hypertension. 3. Moderate concentric left ventricular hypertrophy. 4. Migraine headaches. 5. Allergic rhinitis. 6. Recent gastroenteritis. 7. Anemia of unclear etiology. 8. Hypokalemia on admission. PLAN: I had a long discussion with the patient in regards to atrial fibrillation and possible treatments. Her CHADS2-VASc score is 2 for hypertension and female I agree that she should stay on the Xarelto as she is tolerating it unless we find that the anemia is of something more significance. We discussed today about antiarrhythmic management. Options at this time since she has failed flecainide and propafenone, could be sotalol, Tikosyn or amiodarone. Given that she has been on beta blockers before and she seemed to tolerate them, I think sotalol might be the best option. I also did discuss with her briefly about possible PVI ablation. I think at this juncture the best course would be to wash out the propafenone. Unfortunately, she did get today's dose and start on sotalol on Tuesday at 80 mg twice a day with daily EKGs to monitor her QTc. I did discuss with her about if she has ever had a sleep apnea study, she said she has never had one. I think this is something that we should do as an outpatient as well. In the interim as an inpatient, we can do a nocturnal pulse ox monitor to see if she is dropping her oxygen saturation while asleep. If she does have recurrent AFib while we are washing out the propafenone, would recommend IV Cardizem in the interim to convert her back to sinus rhythm. If she does have recurrent AFib on sotalol, then would definitely highly consider PVI ablation. We will defer anemia workup to the primary team. We would continue her p.o. Cardizem at this juncture in addition but if she does have sinus bradycardia on the sotalol, we may need to stop this and monitor her hypertension and maybe try a different antihypertensive medication. THAO
[2016-05-13 06:26] LABS: HEMATOCRIT 31.8 % (37-47); MEAN CELL VOLUME 74.6 fL (80-100); MEAN CORPUSCULAR HEMOGLOBIN 22.8 pg (25-34); MEAN CORPUSCULAR HGB CONC 30.5 g/dl (32-36); MEAN PLATELET VOLUME 9.6 fL (7.4-10.4); PLATELET COUNT 347 K/uL (130-400); RED BLOOD COUNT 4.26 M/uL (4.2-5.4); WHITE BLOOD COUNT 12.61 K/uL (4.8-10.8)
[2016-05-13 06:55] LABS: BUN/CREATININE RATIO 18.5 (10-20); CALCIUM 8.6 mg/dl (8.5-10.1); CREATININE 0.71 mg/dl (0.60-1.20); POTASSIUM 3.6 mmol/L (3.5-5.1)
[2016-05-13] MEDS: PANTOprazole SOD 40 MG TAB PO SCH (08:05)
[2016-05-13] MEDS: DILTIAZEM HCL 240 MG CAPCR PO SCH (08:06)
[2016-05-13] MEDS: MULTIVITAMIN TAB PO SCH (08:06)
[2016-05-13] MEDS: FERROUS SULFATE 325 MG TAB PO SCH ×2 (09:29→16:19)
[2016-05-13] MEDS: CYANOCOBALAMIN 500 MCG TAB (VIT B-12) PO SCH (09:29)
[2016-05-13] MEDS ORDERED: ALPRAZOLAM 0.5 MG TAB PO STA (10:14)
[2016-05-13] MEDS ORDERED: ALPRAZOLAM 0.25 MG TAB PO PRN (10:15)
--- NOTE | 2016-05-13 10:47 | CARDIOLOGY PROGRESS NOTE ---
DATE: 05/13/2016 DATE: 05/13/2016. SUBJECTIVE: The patient is a 61-year-old female with history of paroxysmal atrial fibrillation. The patient is very anxious and when I entered the room, she was pacing about with great concerns that she was going to the back into atrial fibrillation. I tried to reassure her and let her know that she is on a home energy consultant and in the event she does go into atrial fibrillation, we will care for her. As per Dr. Voss we will let the propafenone wash out again today and then tomorrow the plan is to start her on sotalol 80 mg twice daily. OBJECTIVE: VITAL SIGNS: Blood pressure is 110/70, pulse is regular at 70. She is afebrile. She is currently in a sinus rhythm. GENERAL: She is alert and oriented, walking about in her room. HEAD, EYES, EARS, NOSE, AND THROAT: She is normocephalic. Pupils are equal and reactive to light. Extraocular muscles are intact bilaterally. NECK: The neck veins are flat. Carotids have good upstrokes bilaterally without bruits. Thyroid is nonpalpable. RESPIRATORY: Breath sounds equal bilaterally and clear to auscultation. CARDIOVASCULAR: Heart has a regular rhythm. normal S1 and S2 . No S3, S4. No cardiac rubs or murmurs. GASTROINTESTINAL: Abdomen is soft, nontender without organomegaly. EXTREMITIES: Free of edema, digit clubbing, or cyanosis. NEUROLOGIC: Grossly intact. SKIN: Warm to touch. LYMPH NODES: Negative to palpation. IMPRESSION: 1. Paroxysmal atrial fibrillation. 2. Anxiety. 3. Anemia with negative workup so far. RECOMMENDATIONS: As outlined above, the patient is very anxious and I think that this could be detrimental and result in atrial fibrillation due to her anxiety. I have ordered Xanax to be given to her now and then on a p.r.n. basis. Also as outlined above we will start sotalol tomorrow. THAO
[2016-05-13] MEDS: ACETAMINOPHEN 325 MG TAB PO PRN (19:22)
--- NOTE | 2016-05-13 20:20 | Progress Note ---
Subjective Date of Service: May 13, 2016. Subjective Pt evaluation today including: conversation w/ patient, physical exam, chart review, lab review, review of studies (overnight oximetry study), review of inpatient medication list Pain: denies headache, cp, abd pain PO Intake: normal Voiding: no voiding problems Pt's main complaint is that of chronic fatigue. She has been told that she does snore. She wakes up feeling poorly rested even after sleeping a whole night. Telemetry with NO a. fib overnight. PACS only. Denies any obvious melena or BRBPR. No h/o gastric bypass. Eats balanced diet. Had EGD in 2014 with no source of bleeding. Problem List Medical Problems: (1) Atrial fibrillation with RVR Status: Acute Review of Systems Constitutional: + fatigue Respiratory: No dyspnea on exertion, No shortness of breath Cardiac: No chest pain, No orthopnea Abdomen: No GI bleeding, No nausea, No pain, No vomiting Objective Vital Signs Date Time Temp Pulse Resp B/P Pulse Ox O2 Delivery O2 Flow Rate FiO2 05/13/16 15:37 Room Air 05/13/16 15:30 37.3 73 20 116/67 94 Room Air 05/13/16 11:37 Room Air 05/13/16 08:00 Room Air 05/13/16 07:59 37.1 83 18 134/80 91 Room Air 05/13/16 04:00 36.8 74 18 108/64 94 Room Air 05/13/16 04:00 94 Room Air 05/13/16 00:01 94 Room Air 05/13/16 00:00 37.4 77 18 110/69 94 Room Air Physical Exam General Appearance: no apparent distress, + obese ENT: pharynx normal Neck: no JVD Respiratory/Chest: lungs clear, no respiratory distress, no accessory muscle use Cardiovascular: + pertinent finding (irregular (extra beats), s1, s2, no murmur ) Abdomen: normal bowel sounds, non tender, soft, no organomegaly Extremities: no pedal edema Neurologic/Psychiatric: alert, oriented x 3 Laboratory Results Last 24 Hours Test 05/13/16 06:10 White Blood Count 12.61 K/uL Red Blood Count 4.26 M/uL Hemoglobin 9.7 g/dL Hematocrit 31.8 % Mean Corpuscular Volume 74.6 fL Mean Corpuscular Hemoglobin 22.8 pg Mean Corpuscular Hemoglobin Concent 30.5 g/dl RDW Standard Deviation 43.8 fL RDW Coefficient of Variation 16.2 % Platelet Count 347 K/uL Mean Platelet Volume 9.6 fL Sodium Level 144 mmol/L Potassium Level 3.6 mmol/L Chloride Level 106 mmol/L Carbon Dioxide Level 28 mmol/L Anion Gap 10.0 mmol/L Blood Urea Nitrogen 13 mg/dl Creatinine 0.71 mg/dl Est Creatinine Clear Calc Drug Dose 92.9 ml/min Estimated GFR () 108.1 Estimated GFR (Non- 93.2 BUN/Creatinine Ratio 18.5 Random Glucose 101 mg/dl Calcium Level 8.6 mg/dl Assessment and Plan 61yo female with: 1. recurrent, paroxysmal a. fib with RVR - resolved, now in NSR. Cardiology consult appreciated. Has had multiple anti-arrhythmics in the past without good control. Cardiology recommending to stop propofenone and starting sotalol 80mg BID in the AM. Continue telemetry. Continue cardizem. Continue xarelto. 2. chronic fatigue - anemia could be contributing, but I am quite concerned she has SEVERE EUSEBIA. Overnight oximetry study with significant desaturation events suggesting severe EUSEBIA. Needs formal sleep study and Rx. 3. anemia - 2nd to iron def +/- b12 deficiency. Start ferrous sulfate 325mg BID. Start b12 1000mcg daily. Needs outpatient GI w/u including repeat EGD and colonoscopy. On PPI. 4. HTN - controlled. 5. h/o CAD s/p [place] - unclear why she is not on low-dose aspirin, statin, etc. 6. DVT proph - xarelto. continue telemetry start sotalol in AM daily EKG to monitor QTc Discharge planning: home
[2016-05-13] MEDS: RIVAROXABAN 10 MG TAB PO SCH (20:35)
[2016-05-14] VITALS (7 sets, daily range): BP systolic 111–157; BP diastolic 67–77; PULSE 64–72; TEMP 36.8–37.5; O2SAT 94–97
[2016-05-14] MEDS: ACETAMINOPHEN 325 MG TAB PO PRN (05:00)
[2016-05-14 07:34] LABS: MEAN CELL VOLUME 75.8 fL (80-100); MEAN CORPUSCULAR HGB CONC 30.3 g/dl (32-36); PLATELET COUNT 378 K/uL (130-400); RED BLOOD COUNT 4.09 M/uL (4.2-5.4); WHITE BLOOD COUNT 8.88 K/uL (4.8-10.8)
[2016-05-14 08:03] LABS: BUN/CREATININE RATIO 17.9 (10-20); CALCIUM 8.8 mg/dl (8.5-10.1); CREATININE 0.6 mg/dl (0.60-1.20); POTASSIUM 3.4 mmol/L (3.5-5.1)
[2016-05-14] MEDS: FERROUS SULFATE 325 MG TAB PO SCH ×2 (08:15→16:13)
[2016-05-14] MEDS: MULTIVITAMIN TAB PO SCH (08:16)
[2016-05-14] MEDS: SOTALOL HCL 80 MG TAB PO SCH ×2 (08:16→20:35)
[2016-05-14] MEDS: DILTIAZEM HCL 240 MG CAPCR PO SCH (08:16)
[2016-05-14] MEDS: PANTOprazole SOD 40 MG TAB PO SCH (08:17)
[2016-05-14] MEDS: CYANOCOBALAMIN 500 MCG TAB (VIT B-12) PO SCH (08:17)
[2016-05-14] MEDS: POLYETHYLENE (MIRALAX) 17 GM PACK PO SCH ×2 (08:20→20:36)
[2016-05-14] MEDS: POTASSIUM CHLORIDE 20 MEQ TABCR PO SCH ×2 (09:30→20:36)
[2016-05-14] MEDS ORDERED: POTASSIUM CHLORIDE 10 MEQ TABCR PO STA (09:49)
--- NOTE | 2016-05-14 10:10 | CARDIOLOGY PROGRESS NOTE ---
DATE: 05/14/2016 DATE: 05/14/2016. FOLLOW-UP VISIT SUBJECTIVE: The patient is a 61-year-old female with a history of paroxysmal atrial fibrillation. She has been started on sotalol this morning. She only got her first dose approximately an hour ago. She has been hemodynamically stable and has remained in sinus rhythm on the quality assurance monitor body overnight. She has no complaints this morning. OBJECTIVE: GENERAL: She is alert and oriented in no acute distress. VITAL SIGNS: Blood pressure is 130/70, pulse is regular at 66. She is afebrile. HEAD, EYES, EARS, NOSE, AND THROAT: Normocephalic. Pupils are equal and reactive to light. Extraocular muscles are intact bilaterally. NECK: The neck veins are flat. Carotids have good upstrokes bilaterally without bruits. Thyroid is nonpalpable. RESPIRATORY: Breath sounds equal bilaterally and clear to auscultation. CARDIOVASCULAR: Heart has regular rhythm. Normal S1, S2. No S3, S4. No cardiac rubs or murmurs. GASTROINTESTINAL: Abdomen is soft, nontender without organomegaly. EXTREMITIES: Free of edema, digit clubbing, or cyanosis. NEUROLOGIC: Grossly intact. SKIN: Warm to touch. LYMPH NODES: Negative to palpation. LABORATORY DATA: Hemoglobin is 9.4, potassium is 3.4, creatinine is 0.6. IMPRESSION: 1. Paroxysmal atrial fibrillation. 2. Anxiety. 3. Probable sleep apnea. RECOMMENDATIONS: The patient is doing well clinically and we will continue her sotalol load. We will correct her potassium with some supplements today.
[2016-05-14] MEDS: RIVAROXABAN 10 MG TAB PO SCH (20:38)
--- NOTE | 2016-05-14 20:39 | Progress Note ---
Subjective Date of Service: May 14, 2016. Subjective Pt evaluation today including: conversation w/ patient, conversation w/ family (daughter by phone), physical exam, chart review, lab review, review of inpatient medication list Pain: denies PO Intake: normal Voiding: no voiding problems tele - no a. fib overnight feels like she is getting a cold; also with cough denies sob, carpio c/o fatigue - chronic Problem List Medical Problems: (1) Atrial fibrillation with RVR Status: Acute Review of Systems Constitutional: No fever Respiratory: No dyspnea on exertion, No shortness of breath Cardiac: No chest pain, No orthopnea Abdomen: + constipation, No pain Objective Vital Signs Date Time Temp Pulse Resp B/P Pulse Ox O2 Delivery O2 Flow Rate FiO2 05/14/16 19:44 37.5 72 20 129/75 97 Room Air 05/14/16 16:01 37.0 64 22 126/74 95 Room Air 05/14/16 16:00 Room Air 05/14/16 12:00 Room Air 05/14/16 11:13 36.8 66 18 157/75 94 Room Air 05/14/16 08:00 Room Air 05/14/16 07:37 36.8 66 18 129/77 94 Room Air 05/14/16 04:21 36.8 65 16 111/67 95 Room Air 05/14/16 04:00 Room Air 05/14/16 00:01 97 Room Air 05/13/16 23:49 36.8 69 20 157/74 97 Room Air Physical Exam General Appearance: no apparent distress, + obese ENT: pharynx normal Neck: no JVD Respiratory/Chest: lungs clear, no respiratory distress, no accessory muscle use Cardiovascular: regular rate, rhythm, no gallop, no murmur Abdomen: normal bowel sounds, non tender, soft, no organomegaly Extremities: no pedal edema Laboratory Results Last 24 Hours Test 05/14/16 06:28 White Blood Count 8.88 K/uL Red Blood Count 4.09 M/uL Hemoglobin 9.4 g/dL Hematocrit 31.0 % Mean Corpuscular Volume 75.8 fL Mean Corpuscular Hemoglobin 23.0 pg Mean Corpuscular Hemoglobin Concent 30.3 g/dl RDW Standard Deviation 44.2 fL RDW Coefficient of Variation 16.1 % Platelet Count 378 K/uL Mean Platelet Volume 10.0 fL Sodium Level 142 mmol/L Potassium Level 3.4 mmol/L Chloride Level 104 mmol/L Carbon Dioxide Level 29 mmol/L Anion Gap 9.0 mmol/L Blood Urea Nitrogen 11 mg/dl Creatinine 0.60 mg/dl Est Creatinine Clear Calc Drug Dose 110.5 ml/min Estimated GFR () 115.6 Estimated GFR (Non- 99.8 BUN/Creatinine Ratio 17.9 Random Glucose 102 mg/dl Calcium Level 8.8 mg/dl Assessment and Plan 61yo female with: 1. recurrent, paroxysmal a. fib with RVR - resolved, now in NSR. Cardiology consult appreciated. Propofenone has been stopped. Starting sotalol 80mg BID today; observe for 48 hours on this. Daily EKG for checking the QTc. Continue telemetry. Continue cardizem. Continue xarelto. 2. chronic fatigue - suspect SEVERE EUSEBIA. Overnight oximetry wtih nearly 300 desaturation events. I discussed these results in detail with her today. She has classic EUSEBIA sx's -- AM headaches, mental fogginess, fatigue, frequent nocturnal awakenings, etc. Anemia could be contributing to fatigue as well. Needs formal sleep study and Rx after d/c. 3. anemia - 2nd to iron def +/- b12 deficiency. Cont ferrous sulfate 325mg BID and b12 1000mcg daily. Needs outpatient GI w/u including repeat EGD and colonoscopy. On PPI. 4. HTN - controlled. 5. h/o CAD s/p [place] - unclear why she is not on low-dose aspirin, statin, etc. 6. DVT proph - xarelto. 7. URI - follow. Had low-grade temp overnight likely related to this. No evidence of lower respiratory tract infection. continue telemetry daily EKG to monitor QTc daughter updated by phone 05/14/16 Continued [facility] stay due to: other (sotalol initiation ) Discharge planning: home
[2016-05-15] VITALS (10 sets, daily range): BP systolic 119–143; BP diastolic 66–85; PULSE 63–71; TEMP 36.6–37.4; O2SAT 94–97
[2016-05-15 07:39] LABS: POTASSIUM 4.3 mmol/L (3.5-5.1)
[2016-05-15 07:43] LABS: MAGNESIUM 2.1 mg/dl (1.8-2.4)
[2016-05-15] MEDS: FERROUS SULFATE 325 MG TAB PO SCH ×2 (08:34→16:46)
[2016-05-15] MEDS: DILTIAZEM HCL 240 MG CAPCR PO SCH (08:34)
[2016-05-15] MEDS: SOTALOL HCL 80 MG TAB PO SCH ×2 (08:34→20:56)
[2016-05-15] MEDS: POLYETHYLENE (MIRALAX) 17 GM PACK PO SCH ×2 (08:35→20:57)
[2016-05-15] MEDS: CYANOCOBALAMIN 500 MCG TAB (VIT B-12) PO SCH (08:35)
[2016-05-15] MEDS: PANTOprazole SOD 40 MG TAB PO SCH (08:35)
[2016-05-15] MEDS: MULTIVITAMIN TAB PO SCH (08:35)
[2016-05-15] MEDS: SENNA 8.6 MG TAB PO SCH (08:38)
--- NOTE | 2016-05-15 15:13 | Cardiology Follow-Up ---
Subjective General Date of Service: May 15, 2016. Chief Complaint: follow up fatigue, palpitations Pt evaluation today including: conversation w/ patient, physical exam History of Present Illness The patient is a 61 year old female seen in follow up. Patient is in SR on telemetry. There was a brief run of AF vs complex supraventricular (narrow QRS complex) ectopy this am just after 8 am. She has had 3 doses of sotalol. EKG reveals stable QTC. She has history of an implanted REVEAL radiation monitor. Allergies Coded Allergies: Sulfa Antibiotics (Verified Allergy, Intermediate, METAL TASTE IN MOUTH, TONGUE SWELLS UP, 05/11/16) Latex1 -Allergic Contact Dermititis (Verified Allergy, Unknown, RASH, ) Social History Smoking Status: Never Smoker Hx Tobacco Use In Past Year?: No Hx Alcohol Use - Type And Amou: Yes (Socially) Hx Substance Use - Type And Am: No Problem List Medical Problems: (1) Atrial fibrillation with RVR Status: Acute Physical Exam Vital Signs Last Vital Signs Documentation Date Time Temp Pulse Resp B/P Pulse Ox O2 Delivery O2 Flow Rate FiO2 05/15/16 12:00 Room Air 05/15/16 11:45 36.6 63 20 130/78 96 Physical Exam Constitutional: Level of Distress: NAD Head: normocephalic Neck: supple Lungs: Auscultation: no wheezing, no rales/crackles, no rhonchi Cardiovascular: Heart Auscultation: RRR, no murmurs, no rubs Extremities: no cyanosis, no edema Neurologic: Gait & Station: pertinent finding (no focal deficits ) Assessment and Plan Assessment and Plan Impression: 1. Recurrent symptomatic PAF, refractory to flecainide, intolerant of Rhythmol due to GI upset, no undergoing sotalol initiation 2. Suspected sleep apnea, will need formal sleep med evaluation as outpatient, perhaps with Dr Price at [facility] in order to allow close coordination of care with cardiology 3. anemia Plan: Continue Xarelto. Continue sotalol dose , needs telemetry monitoring for first 6 doses. Continue iron supplementation. Dionicio Bolanos DO Laboratory Results Last 24 Hours Test 05/15/16 06:21 Potassium Level 4.3 mmol/L Magnesium Level 2.1 mg/dl
--- NOTE | 2016-05-15 18:24 | Progress Note ---
Subjective Date of Service: May 15, 2016. Subjective Pt evaluation today including: conversation w/ patient, physical exam, chart review, lab review, conversation w/ rehab consultant (cardiology - Dr. Bolanos) Pain: denies any cp, abd pain PO Intake: normal Voiding: no voiding problems tele overnight with 1 run of atrial tach, probably a. fib, <10 sec in duration patient slept poorly overnight but did keep the O2 on denies sob, carpio, chest pain Problem List Medical Problems: (1) Atrial fibrillation with RVR Status: Acute Review of Systems Constitutional: + fatigue Respiratory: No dyspnea on exertion, No shortness of breath Cardiac: No chest pain, No orthopnea Abdomen: + constipation Objective Vital Signs Date Time Temp Pulse Resp B/P Pulse Ox O2 Delivery O2 Flow Rate FiO2 05/15/16 16:00 Room Air 05/15/16 15:10 37.0 71 18 122/68 95 Room Air 05/15/16 12:00 Room Air 05/15/16 11:45 36.6 63 20 130/78 96 Room Air 05/15/16 08:00 Room Air 05/15/16 07:51 36.7 65 22 129/81 95 Room Air 05/15/16 04:00 97 Room Air 05/15/16 03:26 36.9 65 20 143/83 94 Room Air 05/15/16 00:04 37.3 68 16 119/66 97 Room Air 05/15/16 00:01 97 Room Air 05/14/16 20:00 97 Room Air 05/14/16 19:44 37.5 72 20 129/75 97 Room Air Physical Exam General Appearance: no apparent distress, + obese ENT: pharynx normal Neck: no JVD Respiratory/Chest: lungs clear, no respiratory distress, no accessory muscle use Cardiovascular: regular rate, rhythm, no gallop, no murmur Abdomen: normal bowel sounds, non tender, soft, no organomegaly Extremities: no pedal edema Neurologic/Psychiatric: alert, oriented x 3 Laboratory Results Last 24 Hours Test 05/15/16 06:21 Potassium Level 4.3 mmol/L Magnesium Level 2.1 mg/dl Assessment and Plan 61yo female with: 1. recurrent, paroxysmal a. fib with RVR - resolved, now in NSR. Cardiology consult appreciated. Propofenone has been stopped. Day #2 of sotalol; EKG today with normal QTc. Continue telemetry. Continue cardizem. Continue xarelto. 2. chronic fatigue - suspect SEVERE EUSEBIA. Overnight oximetry wtih nearly 300 desaturation events. She has classic EUSEBIA sx's -- AM headaches, mental fogginess, fatigue, frequent nocturnal awakenings, etc. Anemia could be contributing to fatigue as well. Needs formal sleep study and Rx after d/c. While awaiting sleep study reasonable to send her home on nocturnal NC O2. 3. anemia - 2nd to iron def +/- b12 deficiency. Cont ferrous sulfate 325mg BID and b12 1000mcg daily. Needs outpatient GI w/u including repeat EGD and colonoscopy. On PPI. Fecal occult blood pending. 4. HTN - controlled. 5. h/o CAD s/p [place] - unclear why she is not on low-dose aspirin, statin, etc. NO ischemic sx's at this time. NO ST changes on EKG today. 6. DVT proph - xarelto. continue telemetry daily EKG to monitor QTc daughter updated by phone 05/14/[address] [facility] stay due to: other (sotalol initiation ) Discharge planning: home
[2016-05-15] MEDS: RIVAROXABAN 10 MG TAB PO SCH (20:57)
[2016-05-16] VITALS (9 sets, daily range): BP systolic 103–133; BP diastolic 53–82; PULSE 63–78; TEMP 36.5–37.6; O2SAT 93–98
[2016-05-16] MEDS ORDERED: BISACODYL 10 MG SUPP PR STA (07:57)
[2016-05-16] MEDS: SOTALOL HCL 80 MG TAB PO SCH ×2 (08:44→20:31)
[2016-05-16] MEDS: FERROUS SULFATE 325 MG TAB PO SCH ×2 (08:44→17:16)
[2016-05-16] MEDS: PANTOprazole SOD 40 MG TAB PO SCH (08:45)
[2016-05-16] MEDS: POLYETHYLENE (MIRALAX) 17 GM PACK PO SCH ×2 (08:45→20:32)
[2016-05-16] MEDS: DILTIAZEM HCL 240 MG CAPCR PO SCH (08:45)
[2016-05-16] MEDS: SENNA 8.6 MG TAB PO SCH (08:45)
[2016-05-16] MEDS: MULTIVITAMIN TAB PO SCH (08:45)
[2016-05-16] MEDS: CYANOCOBALAMIN 500 MCG TAB (VIT B-12) PO SCH (08:46)
[2016-05-16] MEDS ORDERED: ONDANSETRON INJ 2 MG/ML 2 ML VIAL IV PRN (09:15)
--- NOTE | 2016-05-16 12:25 | Cardiology Follow-Up ---
Subjective General Date of Service: May 16, 2016. Chief Complaint: follow up fatigue, palpitations Pt evaluation today including: conversation w/ patient, physical exam History of Present Illness The patient is a 61 year old female seen in follow up. Pt without complaints this am. Telemetry reveals stable SR and SB without AF. EKG stable with SR and QTc of 422 ms. Allergies Coded Allergies: Sulfa Antibiotics (Verified Allergy, Intermediate, METAL TASTE IN MOUTH, TONGUE SWELLS UP, 05/11/16) Latex1 -Allergic Contact Dermititis (Verified Allergy, Unknown, RASH, ) Social History Smoking Status: Never Smoker Hx Tobacco Use In Past Year?: No Hx Alcohol Use - Type And Amou: Yes (Socially) Hx Substance Use - Type And Am: No Problem List Medical Problems: (1) Atrial fibrillation with RVR Status: Acute Physical Exam Vital Signs Last Vital Signs Documentation Date Time Temp Pulse Resp B/P Pulse Ox O2 Delivery O2 Flow Rate FiO2 05/16/16 08:00 Room Air 05/16/16 07:26 36.5 67 20 117/79 96 2.0 Physical Exam Constitutional: Level of Distress: NAD Head: normocephalic Neck: supple Lungs: Auscultation: no wheezing, no rales/crackles, no rhonchi Cardiovascular: Heart Auscultation: RRR, no murmurs, no rubs Extremities: no cyanosis, no edema Neurologic: Gait & Station: pertinent finding (no focal deficits ) Assessment and Plan Assessment and Plan Impression: 1. Recurrent symptomatic PAF, refractory to flecainide, intolerant of Rythmol due to GI upset, no undergoing sotalol initiation 2. Suspected sleep apnea, will need formal sleep med evaluation as outpatient, perhaps with Dr Price at [facility] in order to allow close coordination of care with cardiology 3. anemia Plan: Continue Xarelto. Continue sotalol loading at current dose , needs telemetry monitoring for first 6 doses. Dose 6 due evening of 05/16. Continue iron supplementation. Anticipate DC am of 05/17. Disposition: plan for follow up with Dr Burks in 1-3 weeks, I will place outpt referral to Dr Price of [facility] sleep medicine. Dionicio Bolanos DO Laboratory Results Last 24 Hours Test 05/16/16 09:51 Stool Occult Blood NEGATIVE
--- NOTE | 2016-05-16 14:19 | Progress Note ---
Subjective Date of Service: May 16, 2016. Subjective Pt evaluation today including: conversation w/ patient, physical exam, chart review, lab review Pain: none PO Intake: poor breakfast this am due to nausea Voiding: no voiding problems Tele over last 24 hours without any a. fib or other dysrhythmia. She finally had a very small bowel movement this am, then another one a short time later. By the time of my visit her nausea had resolved. Still not sleeping soundly due to interruptions and frequency of urination. Problem List Medical Problems: (1) Atrial fibrillation with RVR Status: Acute Review of Systems Constitutional: No chills, No fever Respiratory: No cough, No dyspnea on exertion, No shortness of breath, No sputum Cardiac: No chest pain, No orthopnea Abdomen: + constipation, + nausea, + see HPI, + vomiting (x 1 this am - small amount), No pain Objective Vital Signs Date Time Temp Pulse Resp B/P Pulse Ox O2 Delivery O2 Flow Rate FiO2 05/16/16 12:48 37.0 63 20 103/53 95 Room Air 05/16/16 12:00 Room Air 05/16/16 08:00 Room Air 05/16/16 07:26 36.5 67 20 117/79 96 Nasal Cannula 2.0 05/16/16 04:00 95 Room Air 05/16/16 03:24 36.8 64 16 108/67 93 Nasal Cannula 2.0 05/16/16 00:00 95 Room Air 05/15/16 23:50 36.9 71 20 135/85 95 Room Air 05/15/16 20:00 97 Room Air 05/15/16 19:28 37.4 68 16 133/83 97 Room Air 05/15/16 16:00 Room Air 05/15/16 15:10 37.0 71 18 122/68 95 Room Air Physical Exam General Appearance: no apparent distress, + obese ENT: pharynx normal Neck: no JVD Respiratory/Chest: lungs clear, no respiratory distress, no accessory muscle use Cardiovascular: regular rate, rhythm, no gallop, no murmur Abdomen: normal bowel sounds, non tender, soft, no organomegaly Extremities: no pedal edema Neurologic/Psychiatric: alert, oriented x 3 Laboratory Results Last 24 Hours Test 05/16/16 09:51 Stool Occult Blood NEGATIVE Assessment and Plan 61yo female with: 1. recurrent, paroxysmal a. fib with RVR - resolved, now in NSR. Cardiology consult appreciated. Propofenone has been stopped. Day #3 of sotalol; EKG 05/15/16 with normal QTc. Continue telemetry, cardizem & xarelto. 2. chronic fatigue - suspect SEVERE EUSEBIA. Overnight oximetry wtih nearly 300 desaturation events. She has classic EUSEBIA sx's. Anemia could be contributing to fatigue as well. Needs formal sleep study - can see a Dr. Price at [facility] for this. While awaiting sleep study reasonable to send her home on nocturnal NC O2 2 liters. 3. anemia - 2nd to iron def +/- b12 deficiency. Cont ferrous sulfate 325mg BID and b12 1000mcg daily. Needs outpatient GI w/u including repeat EGD and colonoscopy. On PPI. Fecal occult blood NEGATIVE, however. 4. HTN - controlled. 5. h/o CAD s/p [place] - unclear why she is not on low-dose aspirin, statin, etc. NO ischemic sx's at this time. NO ST changes on EKG. Defer management to cardiology. 6. DVT proph - xarelto. 7. constipation - improved. Maintain on bowel regimen. Nausea was likely from the constipation. continue telemetry daily EKG to monitor QTc daughter updated by phone 05/14/16 anticipate d/c on 05/17/16 Continued [facility] stay due to: other (sotalol initiation ) Discharge planning: home
[2016-05-16] MEDS: RIVAROXABAN 10 MG TAB PO SCH (20:32)
[2016-05-17] VITALS: O2SAT 96
[2016-05-17 03:46] VITALS: BP 116/70; PULSE 63; TEMP 37; O2SAT 95
[2016-05-17 04:00] VITALS: O2SAT 95
[2016-05-17 07:29] LABS: BUN/CREATININE RATIO 14.6 (10-20); CREATININE 0.77 mg/dl (0.60-1.20); POTASSIUM 4.3 mmol/L (3.5-5.1)
[2016-05-17] MEDS: SOTALOL HCL 80 MG TAB PO SCH (07:45)
[2016-05-17] MEDS: PANTOprazole SOD 40 MG TAB PO SCH (07:46)
[2016-05-17] MEDS: DILTIAZEM HCL 240 MG CAPCR PO SCH (07:46)
[2016-05-17] MEDS: MULTIVITAMIN TAB PO SCH (07:46)
[2016-05-17] MEDS: CYANOCOBALAMIN 500 MCG TAB (VIT B-12) PO SCH (07:46)
[2016-05-17] MEDS: SENNA 8.6 MG TAB PO SCH (07:46)
[2016-05-17] MEDS: FERROUS SULFATE 325 MG TAB PO SCH (07:46)
[2016-05-17] MEDS: POLYETHYLENE (MIRALAX) 17 GM PACK PO SCH (07:47)
[2016-05-17 07:55] VITALS: BP 109/72; PULSE 66; TEMP 36.9; O2SAT 96
--- NOTE | 2016-05-17 09:46 | PROGRESS NOTE ---
DATE: 05/17/2016 This is a followup visit. SUBJECTIVE: The patient is a 61-year-old female with paroxysmal atrial fibrillation who has failed 2 antiarrhythmics and now was started on sotalol. She is going to receive her 6th dose of sotalol this morning. Her EKG remains within normal limits and she has had no probe arrhythmic affect from the sotalol. She is tolerating this medication and has no complaints this morning. OBJECTIVE: GENERAL: She is alert and oriented, in no acute distress. VITAL SIGNS: Blood pressure 110/70, pulse is regular at 65 beats per minute. She is afebrile. HEENT: She is normocephalic. Pupils are equal and reactive to light. Extraocular muscles are intact bilaterally. NECK: The neck veins are flat. Carotids have good upstrokes bilaterally without bruits. Thyroid is nonpalpable. RESPIRATORY: Breath sounds equal bilaterally and clear to auscultation. CARDIOVASCULAR: Heart has a regular rhythm. Normal S1, S2. No S3, S4. No cardiac rubs or murmurs. GASTROINTESTINAL: Abdomen is soft, nontender without organomegaly. EXTREMITIES: Free of edema, digit clubbing, or cyanosis. NEUROLOGIC: Grossly intact. SKIN: Warm to touch. LYMPH NODES: Negative to palpation. LABORATORY DATA: Stool for occult blood is negative. Hemoglobin is 10.1 today. Potassium is 4.3. IMPRESSION: 1. Paroxysmal atrial fibrillation. 2. Sleep apnea. 3. Anemia. RECOMMENDATIONS: From a cardiac standpoint, the patient is ready to be discharged today. She has a followup appointment with Dr. Voss this Tuesday, which she can keep. She will also have a followup appointment with Dr. Price for a sleep evaluation. I agree with the hospitalist service that she would benefit from nightly oxygen until that evaluation is complete. As far as her anemia is concerned, everything thus far is negative. I believe the plan may be that she will go home on some iron supplements.
[2016-05-17] MEDS ORDERED: BTP80 PO (10:53)
[2016-05-17] MEDS ORDERED: MRLP17 PO (10:53)
[2016-05-17] MEDS ORDERED: OXGN (10:53)
[2016-05-17] MEDS ORDERED: SNK PO (10:53)
[2016-05-17] MEDS ORDERED: FRRS300 PO (10:53)
[2016-05-17] MEDS ORDERED: OXYB5TAB21 PO (10:54)
--- NOTE | 2016-05-17 10:55 | Discharge Instructions ---
Discharge Instructions Admission Reason for Admission: Arrhythmia Discharge Discharge Diagnosis / Problem: atrial fibrillation, night time low oxygen suspect sleep apnea Discharge Goals Goal(s): Diagnostic testing, Therapeutic intervention Activity Recommendations Activity Limitations: resume your previous activity . Current Hospital Diet Patient's current hospital diet: AHA Diet (Heart Healthy) Discharge Diet Recommended Diet: AHA Diet (Heart Healthy) Pending Studies Studies pending at discharge: yes List of pending studies: urine culture Medical Emergencies . Who to Call and When: Medical Emergencies: If at any time you feel your situation is an emergency, please call 911 immediately. . Non-Emergent Contact Non-Emergency issues call your: Funeral Car Driver, Specialist (sleep doctor dr Millie Price) . . "Provider Documentation" section prepared by Clemente Nickerson. VTE Core Measure Inpt VTE Proph given/why not?: Other Anticoagulation
[2016-05-17 11:02] VITALS: BP 109/72; PULSE 66; TEMP 36.9; O2SAT 96
[2016-05-17 11:41] LABS: URINE APPEARANCE CLEAR (CLEAR); URINE BILIRUBIN NEG (NEG); URINE COLOR YELLOW; URINE NITRITE NEG (NEG); URINE PH 6.5 (4.5-7.5); URINE SPECIFIC GRAVITY 1.011 (1.000-1.030); UROBILINOGEN NEG (NEG)
[2016-05-17 11:44] LABS: MANUAL MICROSCOPIC REQUIRED? NO; REVIEW REQ? NO
[2016-05-17 11:48] VITALS: BP 113/69; PULSE 59; TEMP 36.9; O2SAT 96
--- NOTE | 2016-05-17 15:51 | Discharge Summary ---
Discharge Summary Admission Date: May 11, 2016 at 15:52 Discharge Date: May 17, 2016 Discharge Disposition: Home Principal Diagnosis: PAF now nsr with med change, sleep apnead Immunizations: Have You Had Influenza Vaccine: No History of Tetanus Vaccine?: Yes Tetanus Immunization Date: Apr 06, 2010 History of Pneumococcal: Yes Pneumococcal Date: Jan 30, 2009 History of Hepatitis B Vaccine: Yes Medication Reconciliation New Medications: Oxybutynin Chloride (Ditropan Xl) 5 Mg Tab 1 TAB PO DAILY for 30 Days, #30 TAB 5 Refills Oxygen (Oxygen) Gas 2 LITERS NA HS for 365 Days Ferrous Sulfate (Ferrous Sulfate) 325 Mg Tab 325 MG PO BIDM, #60 TAB 3 Refills Polyethylene (Miralax) 17 Gm Pow 17 GM PO BID, #60 DOSE 6 Refills Senna (Senna Lax) 8.6 Mg Tab 17.2 MG PO QAM, #60 TAB 6 Refills Sotalol HCl (Sotalol HCl) 80 Mg Tab 80 MG PO BID, #60 TAB 6 Refills Continued Medications: Albuterol Soln (Ventolin Soln) 0.083 % Neb 1 VIAL INH BID PRN for Shortness of Breath Albuterol Sulfate (Proair Hfa) 108 Mcg/ Aer 2 PUFFS INH QID PRN for Shortness of Breath Diltiazem HCl Coated Beads (Diltiazem HCl ER) 240 Mg Tab 240 MG PO QAM Multiple Vitamin (Multivitamin) 1 Tab Tab 1 TAB PO QAM, TAB Nitroglycerin (Nitrostat) 0.4 Mg Tab 0.4 MG UT UD PRN for Chest Pain PLACE ONE TABLET UNDER THE TONGUE EVERY 5 MINUTES FOR UP TO 3 DOSES IF NEEDED FOR CHEST PAIN. Omeprazole (Prilosec) 40 Mg Cap 40 MG PO QAM Rivaroxaban (Xarelto) 20 Mg Tab 20 MG PO QPM, TAB Discontinued Medications: Propafenone Hcl (Propafenone Hcl) 225 Mg Tab 1 TAB PO TID Discharge Exam Review of Systems: Constitutional: No chills, No fever, No weakness Respiratory: No cough, No sputum Cardiovascular: No chest pain, No orthopnea Abdomen: No nausea, No pain, No vomiting Musculoskeletal: No joint pain, No muscle pain Genitourinary - Female: No dysuria, No urinary frequency Psychiatric: No anhedonism, No depression symptoms Physical Exam: General Appearance: WD/WN, no apparent distress Neck: supple, no JVD Respiratory/Chest: chest non-tender, lungs clear, normal breath sounds Cardiovascular: regular rate, rhythm, no murmur Abdomen / GI: normal bowel sounds, non tender, soft Extremities: no pedal edema, normal range of motion Neurologic/Psychiatric: alert, oriented x 3 Skin: normal color, warm/dry Hospital Course 61yo female with recurrent Afib: paroxysmal a. fib with RVR - resolved, now in NSR. Cardiology consult appreciated. Propofenone has been stopped. started sotalol; cardizem & xarelto. EKG 05/15/16 with normal QTc. chronic fatigue - nocturnal hypoxia documented Overnight oximetry wt nearly 300 desaturation events Will benefit from formal sleep study - can see a Dr. Price at [facility] as outpt While awaiting sleep study reasonable to send her home on nocturnal NC O2 2 liters. anemia - Cont ferrous sulfate 325mg BID and b12 1000mcg daily. Needs outpatient GI w/u including repeat EGD and colonoscopy. On PPI. Fecal occult blood NEGATIVE h/o CAD s/p [place] - unclear why she is not on low-dose aspirin, statin, etc. will follow up with cardiology. DVT proph - xarelto. Total Time Spent: Greater than 30 minutes This includes examination of the patient, discharge planning, medication reconciliation, and communication with other providers. Discharge Instructions Please refer to the electronic Patient Visit Report (Discharge Instructions) for additional information. Additional Copies To Vandana Price M.D.
[2016-07-23] MEDS ORDERED: LISI-729 PO (07:59)
[2016-07-23] MEDS ORDERED: MRLP17X PO (07:59)
[2016-07-23] MEDS ORDERED: OXGN (07:59)
[2016-07-23] MEDS ORDERED: OXYB5TAB74 PO (08:01)
[2016-07-27] MEDS ORDERED: FERR1TAB13 PO (12:11)
[2016-09-28] MEDS ORDERED: SOTA80TA PO (12:55)
== END 2016-05-17 13:17 | disposition home or self-care (01) | DRG 310 ==
LOC: ENRESERVDT → ENRESERVTM → EDBD 12:39 → C.EDA 12:41 → C.2T 15:52
PROVIDERS: ADMIT Hospitalist; ATTEND Internal Medicine
DX: I48.0 Paroxysmal atrial fibrillation (principal); G47.33 Obstructive sleep apnea (adult) (pediatric); D50.9 Iron deficiency anemia, unspecified; E53.8 Deficiency of other specified B group vitamins; E87.6 Hypokalemia; F41.9 Anxiety disorder, unspecified; K59.00 Constipation, unspecified; I25.10 Atherosclerotic heart disease of native coronary artery without angina pectoris; I25.2 Old myocardial infarction; I10 Essential (primary) hypertension; K21.9 Gastro-esophageal reflux disease without esophagitis; J44.9 Chronic obstructive pulmonary disease, unspecified; E66.9 Obesity, unspecified; Z51.81 Encounter for therapeutic drug level monitoring; Z79.899 Other long term (current) drug therapy; Z79.01 Long term (current) use of anticoagulants; Z68.38 Body mass index [BMI] 38.0-38.9, adult; Z82.49 Family history of ischemic heart disease and other diseases of the circulatory system

== ENCOUNTER → 2016-07-27 | Day surgery (SDC) | payer OTHER ==
[2016-07-23 08:01] VITALS: Ht 157.5 cm; Wt 92.7 kg
[~2016-07-27] VITALS: Ht 157.5 cm; Wt 92.7 kg
[~2016-07-27] MED LIST changes: +BTP80 PO; +FERR1TAB13 PO; +FRRS300 PO; +LIDOCAINE HCL 2% 2 ML VIAL (20MG/ML) ONE; +LISI-729 PO; +MRLP17X PO; -ONDA4TAB65 PO; +OXGN; +OXYB5TAB74 PO; -PROP225T PO; +PROPOFOL IV EMULSION 10 MG/ML 20 ML VIAL IV ONE; +SODIUM CHLORIDE 0.9% 500ML 500 ML IV ONE; +SOTA80TA PO
--- NOTE | 2016-07-27 12:29 | Endo History and Physical ---
History & Physical Date of Service: Jul 27, 2016. Chief Complaint: Iron Deficiency Anemia Referring Physician: Tiny Voss History of Present Illness Iron deficiency anemia, for EGD and colonoscopy. Past Medical History Atrial Fibrillation, Anxiety, Reflux, Hypertension, COPD, Depression, PR Past Surgical History Hx Cardiac Surgery: Yes (CARDIAC CATH-NO STENTS, IMPLANTED HEART MONITOR) Hx Internal Defibrillator: No Hx Pacemaker: No Hx Abdominal Surgery: Yes (TUBAL LIGATION) Hx Post-Op Nausea and Vomiting: Yes Hx Cancer Surgery: No Hx Thoracic Surgery: No Hx Orthopedic: Yes (RT RCR, RT FOOT SURGERY X 11 WITH HARDWARE) Hx Urinary Tract Surgery: No Family History Colon CA Social History Smoking Status: Never Smoker Hx Substance Use: No Hx Alcohol Use: Yes (OCCASSIONALLY) Allergies Coded Allergies: Sulfa Antibiotics (Verified Allergy, Intermediate, METAL TASTE IN MOUTH, TONGUE SWELLS UP, 07/23/16) Latex1 -Allergic Contact Dermititis (Verified Allergy, Unknown, RASH, 07/23) Current Medications Reported Home Medications Medications Dose Route/Sig Max Daily Dose Days Date Category Dose Instructions Kp Ferrous Sulfate (Ferrous Sulfate) 325 Mg Tab 1 Tab PO TID 30 07/27/16 Reported Ditropan (Oxybutynin Chloride) 5 Mg Tab 5 Mg PO DAILY AT LUNCH 07/23/16 Reported Miralax (Polyethylene) 17 Gm Pow 1 Dose PO DAILY PRN 07/23/16 Reported Oxygen Gas 3 Liters NA HS 07/23/16 Reported Zestril (Lisinopril) 5 Mg Tab 5 Mg PO QAM 07/23/16 Reported Sotalol HCl 80 Mg Tab 80 Mg PO BID 05/17/16 Rx Multivitamin (Multiple Vitamin) 1 Tab Tab 1 Tab PO QAM 08/06/15 Reported Ventolin Soln (Albuterol Soln) 0.083 % Neb 1 Vial INH BID PRN 11/06/14 Reported Xarelto (Rivaroxaban) 20 Mg Tab 20 Mg PO QPM 06/17/14 Reported Diltiazem HCl ER (Diltiazem HCl Coated Beads) 240 Mg Tab 240 Mg PO DAILY PRN 06/17/14 Reported Proair Hfa (Albuterol Sulfate) 108 Mcg/ Aer 2 Puffs INH QID PRN 04/24/14 Reported Nitrostat (Nitroglycerin) 0.4 Mg Tab 0.4 Mg UT UD PRN 04/24/[address] ONE TABLET UNDER THE TONGUE EVERY 5 MINUTES FOR UP TO 3 DOSES IF NEEDED FOR CHEST PAIN. Prilosec (Omeprazole) 40 Mg Cap 40 Mg PO QAM 04/24/14 Reported Vital Signs Weight (Kilograms): 92.73 Height (Feet): 5 Height (Inches): 2 Date Time Temp Pulse Resp B/P Pulse Ox O2 Delivery O2 Flow Rate FiO2 07/27/16 12:25 37.1 69 20 142/64 94 Room Air Physical Exam General Appearance: WD/WN, no apparent distress Respiratory/Chest: Auscultation: breath sounds normal, no wheezing Cardiovascular: Heart Auscultation: RRR, no murmurs Abdomen: Bowel Sounds: normal Inspection & Palpation: soft, no tenderness, guarding & rebound Assessment and Plan EGD and colonoscopy today.
--- NOTE | 2016-07-27 13:27 | GI REPORT ---
Procedure Date: 07/27/2016 12:42 PM Procedure: Upper GI endoscopy Indications: Iron deficiency anemia Medicines: Monitored Anesthesia Care Complications: No immediate complications. Estimated blood loss: None. Estimated Blood Loss: Estimated blood loss: none. Procedure: Pre-Anesthesia Assessment: - Prior to the procedure, a History and Physical was performed, and patient medications, allergies and sensitivities were reviewed. The patient's tolerance of previous anesthesia was reviewed. - ASA Grade Assessment: III - A patient with severe systemic disease. After obtaining informed consent, the endoscope was passed under direct vision. Throughout the procedure, the patient's blood pressure, pulse, and oxygen saturations were monitored continuously. The scope was introduced through the mouth, and advanced to the third part of the duodenum. Small bowel enteroscopy was deemed necessary. The upper GI endoscopy was accomplished with ease. The patient tolerated the procedure well. Findings: The upper third of the esophagus, middle third of the esophagus and lower third of the esophagus were normal. The Z-line was regular. A medium-sized hiatus hernia was present. The entire examined stomach was normal. Biopsies were taken with a cold forceps for Helicobacter pylori testing. The examined duodenum was normal. Biopsies for histology were taken with a cold forceps for evaluation of celiac disease. Verification of patient identification for the specimens was done by the physician and nurse using the patient's name, date and medical record number. Impression: - Normal upper third of esophagus, middle third of esophagus and lower third of esophagus. - Z-line regular. - Medium-sized hiatus hernia. - Normal stomach. Biopsied. - Normal examined duodenum. Biopsied. Recommendation: - Perform a colonoscopy today. - Await pathology results. Codey Grant M.D. Codey Grant MD 07/27/2016 1:27:04 PM This report has been signed electronically. Note Initiated On: 07/27/2016 12:42 PM I attest to the content of the Intraoperative Record and orders documented therein, exceptions below
--- NOTE | 2016-07-27 13:32 | GI REPORT ---
Procedure Date: 07/27/2016 12:57 PM Procedure: Colonoscopy Indications: Iron deficiency anemia Medicines: Monitored Anesthesia Care Complications: No immediate complications. Estimated blood loss: None. Estimated Blood Loss: Estimated blood loss: none. Procedure: Pre-Anesthesia Assessment: - Prior to the procedure, a History and Physical was performed, and patient medications, allergies and sensitivities were reviewed. The patient's tolerance of previous anesthesia was reviewed. - ASA Grade Assessment: III - A patient with severe systemic disease. After I obtained informed consent, the scope was passed under direct vision. Throughout the procedure, the patient's blood pressure, pulse, and oxygen saturations were monitored continuously. The scope was introduced through the anus and advanced to the terminal ileum, with identification of the appendiceal orifice and IC valve. The colonoscopy was performed with ease. The patient tolerated the procedure well. The quality of the bowel preparation was fair. The bowel preparation used was split dose MIralax, but patient did not take second dose due to nausea. Findings: Multiple medium-mouthed diverticula were found in the sigmoid colon. Internal hemorrhoids were found during retroflexion. The hemorrhoids were small. Impression: - Diverticulosis in the sigmoid colon. - Internal hemorrhoids. - No specimens collected. - The colon was otherwise normal to the terminal ileum with retroflexed views of the colon and terminal ileum. Recommendation: - Repeat colonoscopy in 5 years for screening purposes. - Discharge patient to home (with escort). Codey Grant M.D. Codey Grant MD 07/27/2016 1:33:19 PM This report has been signed electronically. Note Initiated On: 07/27/2016 12:57 PM I attest to the content of the Intraoperative Record and orders documented therein, exceptions below
[2016-07-27 13:56] VITALS: BP 170/99; PULSE 63; O2SAT 96
--- NOTE | 2016-07-27 14:01 | Discharge Instructions ---
Endoscopy Patient Instructions Date / Procedure(s) Performed Jul 27, 2016. Colonoscopy, EGD Allergy Information Coded Allergies: Sulfa Antibiotics (Verified Allergy, Intermediate, METAL TASTE IN MOUTH, TONGUE SWELLS UP, 07/23/16) Latex1 -Allergic Contact Dermititis (Verified Allergy, Unknown, RASH, 07/23) Discharge Date / Findings Jul 27, 2016. Diverticulosis, internal hemorrhoids. No source of anemia found, biopsies pending. Medication Instructions Stopped Medication(s): Xarelto Restart Stopped Medication(s): Restart all medications today. Provider Instructions Activity Restrictions - No exercising or heavy lifting for 24 hours. - Do not drink alcohol the day of the procedure. - Do not drive a car or operate machinery until the day after the procedure. - Do not make any important decisions or sign important papers in 24 hours after the procedure. Following Day: - Return to full activity which may include returning to work/school. Diet Start your diet with liquids and light foods (jello, soup, juice, toast). Then eat your usual diet if not nauseated. Treatment For Common After Affects For mild abdominal pain, bloating, or excessive gas: - Rest - Eat lightly - Lie on right side Follow-Up Information Follow-up with Tiny [facility]oss as scheduled Anesthesia Information What You Should Know You have had a procedure that required some medicine to reduce anxiety and discomfort. This treatment is called moderate sedation. After receiving the treatment, you may be sleepy, but you will be able to breathe on your own. The effects of the treatment may last for several hours. Follow these instructions along with Activity/Diet recommendations noted above: * Do NOT do anything where dizziness or clumsiness would be dangerous. * Rest quietly at home today, then you can be up and about tomorrow. * Have a responsible person stay with you the rest of today. * You may have had an I.V. today. If so, you may take the dressing off later today. Recommendations Call your doctor if: * Trouble breathing * Continuous vomiting for more than 24 hours * Temperature above 101 degrees * Severe abdominal pain or bloating * Pain not relieved by pain medicine ordered * There is increased drainage or redness from any incision * A large amount of rectal bleeding greater than 2-3 tablespoons. (If you had a polyp/s removed or have hemorrhoids, a small amount of blood - from the rectum is to be expected.) * You have any unanswered questions or concerns. IN THE EVENT OF A SERIOUS EMERGENCY, GO TO THE NEAREST EMERGENCY ROOM Your discharge instructions were prepared by provider Codey Grant. Patient Instructions Signature Page Kateryna Ortez Patient (or Guardian) Signature/Date: I have read and understand the instructions given to me by my caregivers. Caregiver/RN/Doctor Signature/Date: The above-named patient and/or guardian has received patient instructions on this date. + Original Patient Signature Page (only) stays with chart. Please make copy for patient.
--- NOTE | 2016-07-27 14:39 | Anesthesiology Progress Note ---
Anesthesia Post Op Note Date & Time Jul 27, 2016 at 14:39 Vital Signs Pain Intensity: 0 Vital Signs Past 12 Hours Date Time Temp Pulse Resp B/P Pulse Ox O2 Delivery O2 Flow Rate FiO2 07/27/16 13:56 63 20 170/99 96 Room Air 07/27/16 13:41 65 20 162/89 96 Room Air 07/27/16 13:26 73 20 147/78 94 Room Air 07/27/16 12:25 37.1 69 20 142/64 94 Room Air Notes Mental Status: alert / awake / arousable, participated in evaluation Pt Amnestic to Procedure: Yes Nausea / Vomiting: adequately controlled Pain: adequately controlled Airway Patency, RR, SpO2: stable & adequate BP & HR: stable & adequate Hydration State: stable & adequate Anesthetic Complications: no major complications apparent
== END | disposition home or self-care (01) ==
LOC: C.GI 11:27
PROVIDERS: ATTEND Internal Medicine Gastroenterology
DX: D50.9 Iron deficiency anemia, unspecified (principal); K64.8 Other hemorrhoids; K57.30 Diverticulosis of large intestine without perforation or abscess without bleeding; K44.9 Diaphragmatic hernia without obstruction or gangrene; K29.50 Unspecified chronic gastritis without bleeding; Z80.0 Family history of malignant neoplasm of digestive organs; Z88.2 Allergy status to sulfonamides; Z91.040 Latex allergy status; Z79.01 Long term (current) use of anticoagulants; I48.91 Unspecified atrial fibrillation; K21.9 Gastro-esophageal reflux disease without esophagitis; J44.9 Chronic obstructive pulmonary disease, unspecified; I25.2 Old myocardial infarction; I10 Essential (primary) hypertension; Z99.81 Dependence on supplemental oxygen

== ENCOUNTER 2016-09-25 17:11 | Inpatient (IN) | payer OTHER ==
[~2016-09-25] VITALS: Ht 157.5 cm; Wt 95.7 kg
[2016-09-25] VITALS (13 sets, daily range): BP systolic 81–139; BP diastolic 48–67; PULSE 47–70; TEMP 36.8; O2SAT 91–97; Ht 157.5 cm; Wt 95.7 kg
[~2016-09-25 17:11] MED LIST changes: +DTR/5 PO; -FRRS300 PO; -LIDOCAINE HCL 2% 2 ML VIAL (20MG/ML) ONE; -OXYB5TAB74 PO; -PROPOFOL IV EMULSION 10 MG/ML 20 ML VIAL IV ONE; -SODIUM CHLORIDE 0.9% 500ML 500 ML IV ONE; -SOTA80TA PO
[2016-09-25] MEDS ORDERED: GLUCAGON FOR INJ 1 MG VIAL ONE ×2 (17:40→17:53)
[2016-09-25] MEDS ORDERED: CALCIUM GLUCONATE 10% 10 ML VIAL IV ONE (17:40)
[2016-09-25] MEDS ORDERED: CALCIUM GLUCONATE 10% 10 ML VIAL IV STA (17:40)
[2016-09-25] MEDS ORDERED: SODIUM CHLORIDE 0.9% 1000ML 1,000 ML IV STA (17:40)
[2016-09-25] MEDS ORDERED: GLUCAGON IV STA ×3 (17:46→17:57)
[2016-09-25] MEDS ORDERED: ONDANSETRON INJ 2 MG/ML 2 ML VIAL ONE (17:49)
[2016-09-25 17:53] LABS: BASO % 0.4 %; BASO ABS # 0.05 K/uL (0-0.2); COMPLETE YES; HEMATOCRIT 39.5 % (37-47); IG% 0.3 %; LYMPH % 36.5 %; LYMPH ABS # 4.18 K/uL (1.2-3.4); MEAN CELL VOLUME 83.9 fL (80-100); MEAN CORPUSCULAR HEMOGLOBIN 27.2 pg (25-34); MEAN CORPUSCULAR HGB CONC 32.4 g/dl (32-36); MEAN PLATELET VOLUME 10.4 fL (7.4-10.4); MONO % 8.2 %; NEUT % 52.6 %; PLATELET COUNT 369 K/uL (130-400); RED BLOOD COUNT 4.71 M/uL (4.2-5.4); WHITE BLOOD COUNT 11.44 K/uL (4.8-10.8)
[2016-09-25] MEDS ORDERED: SOTA80TA PO (18:03)
[2016-09-25 18:10] LABS: BLOOD UREA NITROGEN 20 mg/dl (7-18); BUN/CREATININE RATIO 20.6 (10-20); CALCIUM 9.5 mg/dl (8.5-10.1); CARBON DIOXIDE 25 mmol/L (21-32); CHLORIDE 110 mmol/L (98-107); CREATININE 0.98 mg/dl (0.60-1.20); GLUCOSE 124 mg/dl (70-99); POTASSIUM 3.7 mmol/L (3.5-5.1); SODIUM 143 mmol/L (136-145)
[2016-09-25] MEDS ORDERED: ONDANSETRON INJ 2 MG/ML 2 ML VIAL IV STA (18:13)
[2016-09-25 18:15] LABS: CKMB/CK RATIO 1.1 (0-3.0)
--- NOTE | 2016-09-25 18:19 | DIAGNOSTIC IMAGING REPORT ---
CHEST ONE VIEW PORTABLE CLINICAL HISTORY: Chest Pain dyspnea COMPARISON STUDY: 05/11/2016 FINDINGS: The bones soft tissues and hemidiaphragms are normal. The cardiomediastinal silhouette is normal. The lungs are clear. The pulmonary vasculature is normal. IMPRESSION: Negative chest. Electronically signed by: Jay Tillman M.D. 09/25/2016 6:18 PM Dictated Date/Time: 09/25/2016 6:18 PM
[2016-09-25] MEDS ORDERED: CALCIUM GLUCONATE 10% 1,000 MG in SODIUM CHLORIDE 0.9% 50ML 50 ML IV ONE (18:30)
[2016-09-25] MEDS ORDERED: CALCIUM GLUCONATE IV ONE (19:30)
[2016-09-25] MEDS ORDERED: SODIUM CHLORIDE 0.9% IV ONE (19:30)
[2016-09-25] MEDS ORDERED: POTASSIUM CHLORIDE 10 MEQ TABCR PO STA (19:36)
[2016-09-25] MEDS ORDERED: CALCIUM GLUCONATE 10% 1,000 MG in SODIUM CHLORIDE 0.9% 50ML 50 ML IV STA (19:43)
[2016-09-25] MEDS ORDERED: ALBUTEROL 0.083% NEBU SOLN 3 ML VIAL INH PRN (19:45)
[2016-09-25] MEDS ORDERED: NITROGLYCERIN 0.4 MG SL PER TAB CHARGE UT PRN (19:45)
[2016-09-25] MEDS ORDERED: POLYETHYLENE (MIRALAX) 17 GM PACK PO PRN (19:45)
[2016-09-25] MEDS ORDERED: ALBUTEROL HFA 8 GM INHALER INH PRN (19:45)
--- NOTE | 2016-09-25 19:47 | EMERGENCY ROOM VISIT NOTE ---
History Report prepared by Gris: Tank Tena Under the Supervision of: Dr. Emmanuel Ariza D.O. First contact with patient: 17:19 Chief Complaint: CHEST PAIN Stated Complaint: CHEST PAIN,DIZZY,VOMITING,HEADACHE Nursing Triage Summary: pt reports HX of Afib and had a fast HR last night , pt took 240 mg of cardizem 1 1600and 1900 now feeling dizzy lightheaded and weak, " feels like an elephant is on my chest and some sob with exertion " History of Present Illness The patient is a 61 year old female who presents to the Emergency Room with complaints of constant chest "pressure" beginning last night. She states that she went into an "A-fib attack" last night and attempted to take Cardizem to resolved her symptoms. She states that she took a 240 mg tablet of Cardizem at 2 :00am, 4:00am and 7:00am. The patient states that her heart rate was around 175 bpm last night. She currently complains of dizziness, generalized weakness, body aches, and shortness of breath. She states that her A-fib has always improved after one dose of Cardizem prior to last night. She notes that she had a heart attack a little over two years ago. She is on Xarelto. The patient states that her chest pain last night felt similarly to the chest pain associated with her previous heart attack. She has no stents in place, but is planning a cardiac ablation for her a-fib in the coming months. Pt denies headache, change in vision, fevers, nausea, vomiting, diarrhea, pain with urination, and melena. She notes that her blood pressure dropped to 80 systolically, and her heart rate dropped to 42 bpm about an hour ago. Source of History: patient Onset: Today Position: chest Quality: pressure Timing: constant Associated Symptoms: + SOB, + weakness (generalized), No abdominal pain, No diarrhea, No headache, No nausea, No urinary symptoms, No vomiting Note: The patient also complains of body aches and dizziness. Review of Systems See HPI for pertinent positives & negatives. A total of 10 systems reviewed and were otherwise negative. Past Medical & Surgical Medical Problems: (1) Arrhythmia (2) CAD (coronary artery disease) (3) GERD (gastroesophageal reflux disease) (4) HTN (hypertension) (5) Migraine (6) Myocardial infarction (7) PAF (paroxysmal atrial fibrillation) Surgical Problems: (1) History of tubal ligation Family History Diabetes mellitus Heart disease Social History Smoking Status: Never Smoker Drug Use: none Marital Status: Occupation Status: disabled Current/Historical Medications Scheduled Ferrous Sulfate ( Ferrous Sulfate), 325 MG PO TID Lisinopril (Zestril), 5 MG PO QAM Multiple Vitamin (Multivitamin), 1 TAB PO QAM Omeprazole (Prilosec), 40 MG PO QAM Oxybutynin Chloride (Ditropan), 5 MG PO DAILY AT LUNCH Oxygen (Oxygen), 3 LITERS NA HS Rivaroxaban (Xarelto), 20 MG PO QPM Sotalol Hcl (Sotalol Hcl), 80 MG PO BID Scheduled PRN Albuterol Soln (Ventolin Soln), 1 VIAL INH BID PRN for Shortness of Breath Albuterol Sulfate (Proair Hfa), 2 PUFFS INH QID PRN for Shortness of Breath Diltiazem HCl Coated Beads (Diltiazem HCl ER), 240 MG PO DAILY PRN for USES IF IN A-FIB Nitroglycerin (Nitrostat), 0.4 MG UT UD PRN for Chest Pain Polyethylene (Miralax), 1 DOSE PO DAILY PRN for Constipation Allergies Coded Allergies: Sulfa Antibiotics (Verified Allergy, Intermediate, METAL TASTE IN MOUTH, TONGUE SWELLS UP, 07/23/16) Latex1 -Allergic Contact Dermititis (Verified Allergy, Unknown, RASH, 07/23) Physical Exam Vital Signs Date Time Temp Pulse Resp B/P Pulse Ox O2 Delivery O2 Flow Rate FiO2 09/25/16 19:01 48 16 102/57 98 Nasal Cannula 2.0 09/25/16 18:42 45 18 99/55 96 Nasal Cannula 3.5 09/25/16 18:31 44 16 83/43 97 Nasal Cannula 2.0 09/25/16 18:17 48 18 132/64 98 Nasal Cannula 2.0 09/25/16 18:11 48 16 97/51 97 09/25/16 18:08 45 16 69/33 97 Nasal Cannula 2.0 09/25/16 18:01 51 18 80/43 98 Nasal Cannula 2.0 09/25/16 17:51 44 16 105/36 97 09/25/16 17:45 100 Nasal Cannula 2.0 09/25/16 17:44 46 18 113/49 99 Nasal Cannula 2.0 09/25/16 17:36 38 16 55/22 99 Nasal Cannula 2.0 09/25/16 17:31 48 09/25/16 17:15 36.9 48 18 102/62 96 Room Air Physical Exam GENERAL: Sitting up in bed, disheveled, nontoxic, ill-appearing. EYE EXAM: normal conjunctiva OROPHARYNX: no exudate, no erythema, lips, buccal mucosa, and tongue normal and mucous membranes are moist NECK: supple, no nuchal rigidity, no adenopathy, non-tender LUNGS: Clear to auscultation. Normal chest wall mechanics HEART: no murmurs, S1 normal and S2 normal ABDOMEN: abdomen soft, non-tender, normo-active bowel sounds, no masses, no rebound or guarding. BACK: Back is symmetrical on inspection and there is no deformity, no midline tenderness, no CVA tenderness. SKIN: no rashes and no bruising UPPER EXTREMITIES: upper extremities are grossly normal. LOWER EXTREMITIES: No pitting edema. NEURO EXAM: Normal sensorium, cranial nerves II-XII intact, normal speech, no weakness of arms, no weakness of legs. No drift. Finger to nose intact. Gross sensation intact. Medical Decision & Procedures ER Provider Diagnostic Interpretation: Radiology results as stated below per my review and the radiologist's interpretation: CHEST ONE VIEW PORTABLE FINDINGS: The bones soft tissues and hemidiaphragms are normal. The cardiomediastinal silhouette is normal. The lungs are clear. The pulmonary vasculature is normal. IMPRESSION: Negative chest. Electronically signed by: Jay Tillman M.D. Laboratory Results 09/25/16 17:35 Red Blood Count 4.71, Mean Corpuscular Volume 83.9, Mean Corpuscular Hemoglobin 27.2, Mean Corpuscular Hemoglobin Concent 32.4, Mean Platelet Volume 10.4, Neutrophils (%) (Auto) 52.6, Lymphocytes (%) (Auto) 36.5, Monocytes (%) (Auto) 8.2, Eosinophils (%) (Auto) 2.0, Basophils (%) (Auto) 0.4, Neutrophils # (Auto) 6.00, Lymphocytes # (Auto) 4.18, Monocytes # (Auto) 0.94, Eosinophils # (Auto) 0.23, Basophils # (Auto) 0.05 Test 09/25/16 17:35 09/25/16 19:05 White Blood Count 11.44 K/uL (4.8-10.8) Red Blood Count 4.71 M/uL (4.2-5.4) Hemoglobin 12.8 g/dL (12.0-16.0) Hematocrit 39.5 % (37-47) Mean Corpuscular Volume 83.9 fL (80-100) Mean Corpuscular Hemoglobin 27.2 pg (25-34) Mean Corpuscular Hemoglobin Concent 32.4 g/dl (32-36) Platelet Count 369 K/uL (130-400) Mean Platelet Volume 10.4 fL (7.4-10.4) Neutrophils (%) (Auto) 52.6 % Lymphocytes (%) (Auto) 36.5 % Monocytes (%) (Auto) 8.2 % Eosinophils (%) (Auto) 2.0 % Basophils (%) (Auto) 0.4 % Neutrophils # (Auto) 6.00 K/uL (1.4-6.5) Lymphocytes # (Auto) 4.18 K/uL (1.2-3.4) Monocytes # (Auto) 0.94 K/uL (0.11-0.59) Eosinophils # (Auto) 0.23 K/uL (0-0.5) Basophils # (Auto) 0.05 K/uL (0-0.2) RDW Standard Deviation 43.3 fL (36.4-46.3) RDW Coefficient of Variation 14.2 % (11.5-14.5) Immature Granulocyte % (Auto) 0.3 % Immature Granulocyte # (Auto) 0.04 K/uL (0.00-0.02) Magnesium Level 2.0 mg/dl (1.8-2.4) Total Creatine Kinase 44 U/L (26-192) Creatine Kinase MB 0.5 ng/ml (0.5-3.6) Creatine Kinase MB Ratio 1.1 (0-3.0) Troponin I < 0.015 ng/ml (0-0.045) Bedside Glucose 117 mg/dl (70-90) Laboratory results per my review. Medications Administered Medications (Trade) Dose Ordered Sig/Aicha Route Start Time Stop Time Status Last Admin Dose Admin Glucagon (Glucagon Inj) 1 mg STK-MED ONCE .ROUTE 09/25/16 17:40 09/25/16 17:41 DC 09/25/16 17:40 1 MG Calcium Gluconate 1000 mg 1,000 mg STK-MED ONCE IV 09/25/16 17:40 09/25/16 17:41 DC 09/25/16 17:43 1,000 MG Sodium Chloride (Nss 1000ml) 1,000 ml @ 999 mls/hr Q1H1M STAT IV 09/25/16 17:40 09/25/16 18:40 DC 09/25/16 17:40 999 MLS/HR Ondansetron HCl (Zofran Inj) 4 mg STK-MED ONCE .ROUTE 09/25/16 17:49 09/25/16 17:50 DC 09/25/16 17:56 4 MG Glucagon 2 mg 2 mg STK-MED ONCE .ROUTE 09/25/16 17:53 09/25/16 17:54 DC 09/25/16 17:55 2 MG Calcium Gluconate/ Sodium Chloride (Calcium Gluconate 10%/Nss 50ml) 60 ml @ 58 mls/hr 1830 ONCE IV 09/25/16 18:30 09/25/16 19:32 DC 09/25/16 18:22 58 MLS/HR Ondansetron HCl (Zofran Inj) 4 mg NOW STAT IV 09/25/16 18:13 09/25/16 18:15 DC 09/25/16 18:22 4 MG ECG Indication: chest pain Rate (beats per minute): 49 Rhythm: other (Junctional Rhythm) Findings: other (Flipped T-waves in the anterior and lateral leads) Comparison ECG Date: May 17, 2016 Change: Flipped T-waves are new. ED Course ED COURSE: Vital signs were reviewed and showed hypotension and bradycardia The patients medical record was reviewed The above diagnostic studies were performed and reviewed. ED treatments and interventions as stated above. 1720: The patient was evaluated in room B12B. A complete history and physical examination was performed. 1738: The patient's systolic blood pressure dropped to 50. 1740: Ordered Sodium Chloride 1000 ml @ 999 mls/hr IV, Calcium Gluconate 10% 1000 mg IV. 1813: The patient began vomiting. Ordered Zofran Inj 4 mg IV. 1818: The patient's heart rate has improved into the 60's. Her systolic pressure is 96. 182: A calcium drip was started on the patient at 0.6 mL/kg/hour. Her blood pressure is 132 systolically. Her heart rate is 45. 183: Ordered Calcium Gluconate 1000 mg/NSS 60 mL @ 58 mL/hr IV. 1854: Upon reevaluation, the patient is resting comfortably. Her heart rate is 43 bpm, and her systolic blood pressure is 98. I discussed my findings with the patient and she understands and agrees with the treatment plan. Based on the patients age, coexisting illnesses, exam and lab findings the decision to treat as an inpatient was made. The patient remained stable while under my care. The patient will be evaluated for further management. 1905: I checked in on the patient. Her systolic blood pressure is 102. 1931: The patient's systolic blood pressure is 110. Her calcium gluconate dosage was increased to 0.9 mL/kg/hour. 1935: Ordered Klor-Con M10 40 meq PO. 2000: I stopped in to see the patient. Dr. Paulson is at bedside. The patient was taken to the ICU. Medical Decision Differential diagnoses includes but is not limited to acute coronary syndrome, myocardial infarction, pericarditis, pulmonary embolus, aortic dissection, pneumonia, pneumothorax, musculoskeletal, shingles, esophageal. Patient is a 61-year-old female who presents the ER for an overdose of her Cardizem. She took 3 tabs of her 240 mg at 2 AM, 4 AM and 6 AM as she felt that she was in A. fib with a heart rate in the 170s. Around 3-4 PM this afternoon she became very dizzy lightheaded and weak. I received a call from her research tech as she initially called him in regards to the medication she took. She was instructed to come in for further evaluation via ALS. She came in via private vehicle. Initially systolic pressures were in the low 100s and heart rate was 50. Shortly after her blood pressure dipped into the 50s systolically. At this time she was given IV glucagon and calcium gluconate. Her heart rate improved to the 60s and systolic pressure improved to the low 100s. About 20 minutes following this her blood pressure dipped again into the 60s systolically and she received another dose of glucagon with improvement of her systolic blood pressures into the low 100s. At this time she was placed on a calcium gluconate drip, her systolic blood pressures have remained fairly stable following this. She dipped into the low 90s for short period of time. Following this her calcium gluconate drip was increased from 0.6 mL's per kilogram per hour to 0.9 MLS per kilogram per hour with a max possible dose of 1.2 ml/kg/hr. Since then her systolic pressures have remained in the low 100s. I have discussed this case with [facility] on 3 separate occasions. If her blood pressure were to drop again she will likely be a candidate for high-dose insulin and dextrose therapy. This information was sent to me via [employer]. My intent was to initially start this high dose insulin/dextrose however with her pressures remaining stable with the calcium gluconate drip will hold at this time. I did discuss this case with the manager organizational ICU attending who is aware and agreeable to keeping her in her unit. I also discussed the case with internal medicine who admitted the patient. Consults Time Called: 174 Consulting Physician: [facility] Returned Call: 174 I reviewed the patient's case with [facility] [place]. They agree that the patient be given Glucagon, Calcium Chloride, Insulin and Dextrose. Additional Consults: Time Called: 180 Consulted Physician: [facility] Returned Call: [phone] Additional Comments: I reviewed the patient's case with [facility]. They will contact the nuclear equipment sales engineer. 1829: I spoke with the [employer]. He recommends that the patient be started on high dose insulin. He states that the patient will not require a GI wash-out. Time Called: [phone] Consulted Physician: Dr. Paulson -ICU Returned Call: [phone] Additional Comments: I reviewed the patient's case with Dr. Paulson. The patient will be evaluated in the ICU. 1855: I spoke with Dr. Segal of [facility] [place]. The patient will be evaluated for further management. Impression Primary Impression: Calcium channel kam overdose Additional Impressions: Chest pain Hypotension due to medication Acute electrocardiogram changes Bradycardia with 41-50 beats per minute Junctional escape rhythm Critical Care I have personally spent 130 minutes of critical care time in the direct management of this patient. This includes bedside care, interpretation of diagnostic studies, and testing, discussion with consultants, patient, and family members, and other required patient management activities. This 130 minutes is in excess of all separately billable procedures. Scribe Attestation The scribe's documentation has been prepared under my direction and personally reviewed by me in its entirety. I confirm that the note above accurately reflects all work, treatment, procedures, and medical decision making performed by me. Departure Information Dispostion Being Evaluated By Hospitalist Referrals Lorraine Yo PA-C (PCP) Patient Instructions My [facility] Problem Qualifiers Primary Impression: Calcium channel kam overdose Encounter type: initial encounter Injury intent: accidental or unintentional Qualified Codes: T46.1X1A - Poisoning by calcium-channel blockers, accidental (unintentional), initial encounter Additional Impressions: Chest pain Chest pain type: unspecified Qualified Codes: R07.9 - Chest pain, unspecified
--- NOTE | 2016-09-25 20:38 | History and Physical ---
History & Physical Date & Time of Service: September 25, 2016 at 20:32 Chief Complaint: Chest Pain,Dizzy,Vomiting,Headache Primary Care Physician: Lorraine Yo PA-C Past Medical/Surgical History Medical Problems: (1) CAD (coronary artery disease) Status: Chronic (2) GERD (gastroesophageal reflux disease) Status: Chronic (3) HTN (hypertension) Status: Chronic (4) Migraine Status: Chronic (5) Myocardial infarction Status: Resolved (6) PAF (paroxysmal atrial fibrillation) Status: Chronic Surgical Problems: (1) History of tubal ligation Status: Resolved Family History Diabetes mellitus Heart disease Social History Smoking Status: Never Smoker Drug Use: none Marital Status: Housing status: lives alone Occupational Status: disabled Immunizations History of Influenza Vaccine: No History of Tetanus Vaccine?: Yes Tetanus Immunization Date: Apr 06, 2010 History of Pneumococcal: Yes Pneumococcal Date: Jan 30, 2009 History of Hepatitis B Vaccine: Yes Multi-Drug Resistant Organisms History of MDRO: No Allergies Coded Allergies: Sulfa Antibiotics (Verified Allergy, Intermediate, METAL TASTE IN MOUTH, TONGUE SWELLS UP, 07/23/16) Latex1 -Allergic Contact Dermititis (Verified Allergy, Unknown, RASH, 07/23) Home Medications Scheduled Ferrous Sulfate (Kp Ferrous Sulfate), 325 MG PO TID Lisinopril (Zestril), 5 MG PO QAM Multiple Vitamin (Multivitamin), 1 TAB PO QAM Omeprazole (Prilosec), 40 MG PO QAM Oxybutynin Chloride (Ditropan), 5 MG PO DAILY AT LUNCH Oxygen (Oxygen), 3 LITERS NA HS Rivaroxaban (Xarelto), 20 MG PO QPM Sotalol Hcl (Sotalol Hcl), 80 MG PO BID Scheduled PRN Albuterol Soln (Ventolin Soln), 1 VIAL INH BID PRN for Shortness of Breath Albuterol Sulfate (Proair Hfa), 2 PUFFS INH QID PRN for Shortness of Breath Diltiazem HCl Coated Beads (Diltiazem HCl ER), 240 MG PO DAILY PRN for USES IF IN A-FIB Nitroglycerin (Nitrostat), 0.4 MG UT UD PRN for Chest Pain Polyethylene (Miralax), 1 DOSE PO DAILY PRN for Constipation Physical Exam Vital Signs Date Time Temp Pulse Resp B/P Pulse Ox O2 Delivery O2 Flow Rate FiO2 09/25/16 19:44 48 18 103/52 97 09/25/16 19:20 45 18 115/57 97 Room Air 09/25/16 19:01 48 16 102/57 98 Nasal Cannula 2.0 09/25/16 18:42 45 18 99/55 96 Nasal Cannula 3.5 09/25/16 18:31 44 16 83/43 97 Nasal Cannula 2.0 09/25/16 18:17 48 18 132/64 98 Nasal Cannula 2.0 09/25/16 18:11 48 16 97/51 97 09/25/16 18:08 45 16 69/33 97 Nasal Cannula 2.0 09/25/16 18:01 51 18 80/43 98 Nasal Cannula 2.0 09/25/16 17:51 44 16 105/36 97 09/25/16 17:45 100 Nasal Cannula 2.0 09/25/16 17:44 46 18 113/49 99 Nasal Cannula 2.0 09/25/16 17:36 38 16 55/22 99 Nasal Cannula 2.0 09/25/16 17:31 48 09/25/16 17:15 36.9 48 18 102/62 96 Room Air Diagnostics Laboratory Results Results Past 24 Hours Test 09/25/16 17:35 09/25/16 18:13 09/25/16 19:05 Range/Units White Blood Count 11.44 4.8-10.8 K/uL Red Blood Count 4.71 4.2-5.4 M/uL Hemoglobin 12.8 12.0-16.0 g/dL Hematocrit 39.5 37-47 % Mean Corpuscular Volume 83.9 80-100 fL Mean Corpuscular Hemoglobin 27.2 25-34 pg Mean Corpuscular Hemoglobin Concent 32.4 32-36 g/dl Platelet Count 369 130-400 K/uL Mean Platelet Volume 10.4 7.4-10.4 fL Neutrophils (%) (Auto) 52.6 % Lymphocytes (%) (Auto) 36.5 % Monocytes (%) (Auto) 8.2 % Eosinophils (%) (Auto) 2.0 % Basophils (%) (Auto) 0.4 % Neutrophils # (Auto) 6.00 1.4-6.5 K/uL Lymphocytes # (Auto) 4.18 1.2-3.4 K/uL Monocytes # (Auto) 0.94 0.11-0.59 K/uL Eosinophils # (Auto) 0.23 0-0.5 K/uL Basophils # (Auto) 0.05 0-0.2 K/uL RDW Standard Deviation 43.3 36.4-46.3 fL RDW Coefficient of Variation 14.2 11.5-14.5 % Immature Granulocyte % (Auto) 0.3 % Immature Granulocyte # (Auto) 0.04 0.00-0.02 K/uL Sodium Level 143 136-145 mmol/L Potassium Level 3.7 3.5-5.1 mmol/L Chloride Level 110 98-107 mmol/L Carbon Dioxide Level 25 21-32 mmol/L Anion Gap 8.0 3-11 mmol/L Blood Urea Nitrogen 20 7-18 mg/dl Creatinine 0.98 0.60-1.20 mg/dl Est Creatinine Clear Calc Drug Dose 66.8 ml/min Estimated GFR () 73.2 Estimated GFR (Non- 63.1 BUN/Creatinine Ratio 20.6 10-20 Random Glucose 124 70-99 mg/dl Calcium Level 9.5 8.5-10.1 mg/dl Magnesium Level 2.0 1.8-2.4 mg/dl Total Creatine Kinase 44 26-192 U/L Creatine Kinase MB 0.5 0.5-3.6 ng/ml Creatine Kinase MB Ratio 1.1 0-3.0 Troponin I < 0.015 0-0.045 ng/ml Bedside Glucose 151 117 70-90 mg/dl Impression Assessment and Plan admit #[id number] VTE Prophylaxis VTE Risk Assessment Done? Y/N: Yes Risk Level: Moderate Given or contraindicated: Other Anticoagulation
[2016-09-25] MEDS ORDERED: NON-FORMULARY MEDICATION SCH (21:00)
[2016-09-25] MEDS ORDERED: SODIUM CHLORIDE 0.9% 500ML 500 ML IV SCH (21:00)
[2016-09-25 21:27] LABS: INR 1.1 (0.9-1.1); PARTIAL THROMBOPLASTIN RATIO 1.1
[2016-09-25] MEDS ORDERED: SODIUM CHLORIDE 0.9% IV PRN (21:30)
[2016-09-25] MEDS ORDERED: CALCIUM GLUCONATE IV PRN (21:30)
[2016-09-25 21:36] LABS: BUN/CREATININE RATIO 26.8 (10-20); CREATININE 0.79 mg/dl (0.60-1.20)
[2016-09-25] MEDS: LACTATED RINGER'S 1000ML 1,000 ML IV SCH (21:53)
[2016-09-25] MEDS ORDERED: LIDOCAINE HCL 1% 20 ML VIAL ONE (22:07)
[2016-09-25 22:17] LABS: CALCIUM 10.2 mg/dl (8.5-10.1)
[2016-09-25] MEDS: RIVAROXABAN 10 MG TAB PO SCH (22:53)
[2016-09-26] VITALS (50 sets, daily range): BP systolic 88–143; BP diastolic 49–100; PULSE 45–101; TEMP 36.6–36.9; O2SAT 91–98
--- NOTE | 2016-09-26 00:12 | CRITICAL CARE CONSULTATION ---
DATE OF CONSULTATION: 09/25/2016 CHIEF COMPLAINT: Chest pain, dizziness and headache. HISTORY OF PRESENT ILLNESS: The patient is a 61-year-old woman, with a history of atrial fibrillation for which she takes sotalol 80 mg b.i.d. She also has a history of hypertension and nocturnal hypoxemia. She presented to the Emergency Department this evening around 5:30 p.m. with complaints of headache, dizziness, nausea and vomiting. She reported that she started to "feel funny" around 11:00 p.m. last night and she had noticed that her hands and feet had been swelling. She was concerned that this might be a precursor to going into atrial fibrillation. Around 12:30, she went to bed and at 1:00 a.m. felt chest pressure in the middle of her chest and back pain. She could feel that her heart was racing and she tried bearing down to decrease her heart rate without success. Around 2:00 a.m., she took 240 mg of extended-release diltiazem and laid in bed. She thinks her heart rate was around 160-170. At 4:00 a.m., she took another 240 mg of Cardizem and then again at 7:00 a.m. she took one more dose. She does not normally take Cardizem at all and has used this strategy for her atrial fibrillation in the past; however, she has not taken this many doses. She also took one sublingual nitroglycerin which did not change her chest pressure, but did give her a headache. In the morning, after her 7:00 a.m. dose, she felt like her heart rate was under better control. It was around 120, but she felt lousy. She was feeling dizzy, tired and spent a lot of time either in bed or not doing much. In the afternoon, she started to feel very dizzy with a headache and nausea. She took her blood pressure and it was 88 systolicallywith a heart rate in the 30s to 40s. She called the emergency department to elicit advice on her situation and was advised to call her settlement agent. She was able to speak with a [facility] settlement agent who advised her to call 911. She then call her significant other who brought her to the hospital by private vehicle. In the Emergency Department, her heart rate was in the 30s to 40s and she received calcium gluconate 3 grams as well as glucagon 4 mg in divided doses. She was eventually placed on a calcium gluconate infusion. The poison control center was contacted. In the Emergency Department, she had some nausea and vomiting with the glucagon and she tells me her chest pressure resolved. Overall, she started to feel a little bit better and she received normal saline one liter. When I saw her in the Emergency Department, her heart rate was in the 40s with a systolic blood pressure in the 90s. As previously noted, she has used Cardizem at other times to try to control her atrial fibrillation. She was taken off the drug she says because her blood pressure was too low and she was placed on lisinopril. Her last echocardiogram in March 2016 showed a preserved ejection fraction. PAST MEDICAL HISTORY: Nocturnal hypoxemia, hypertension, paroxysmal atrial fibrillation, obesity, allergic rhinitis, nephrolithiasis, migraine headaches, chronic back pain and myocardial infarction in 2013. She has a sleep study appointment at the end of this month. PAST SURGICAL HISTORY: Implantable loop recorder, carpal tunnel release, several foot and toe surgeries, tubal ligation and rotator cuff repair. ALLERGIES: TO SULFA AND LATEX. OUTPATIENT MEDICATIONS: Oxybutynin 5 mg daily, albuterol inhaler p.r.n., oxygen 2.5 liters by nasal cannula at night, ferrous sulfate 325 mg b.i.d., MiraLax p.r.n., sotalol 80 mg b.i.d., multivitamin daily, nitroglycerin sublingual p.r.n., omeprazole 40 mg daily, Xarelto 20 mg every evening, lisinopril 10 mg daily and Claritin-D p.r.n. SOCIAL HISTORY: She is and lives alone. 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 She has never smoked. She drinks socially. FAMILY HISTORY: Significant for mother with heart disease and diabetes mellitus as well as arthritis and a sister with diabetes mellitus. REVIEW OF SYSTEMS: She reports numbness and tingling in her hands and feet, black stools secondary to iron, no visual changes. She was dizzy and almost fell down today, but denies syncope. No difficulty swallowing. She has had nausea and vomiting x1 in the Emergency Department. No abdominal pain, fevers, chills or diarrhea. Mild lower extremity swelling in the past few days. No falls, no bleeding. Additional review of systems is negative or noncontributory in a 12-point system other than what is presented in the history of present illness. PHYSICAL EXAMINATION: VITAL SIGNS: Temperature 36.8, heart rate 47-57, respiratory rate 16, blood pressure 106/53 and oxygen saturation 97% on room air. HEENT: Pupils are equally round and reactive to light. There is some mild nystagmus. She wears glasses. Oral mucosa moist. Posterior pharynx clear. NECK: No adenopathy. Supple. No jugular venous distention. LUNGS: Clear to auscultation bilaterally. No rales, rhonchi or wheezes. HEART: Bradycardic, irregular. I do not hear any murmurs. CHEST: Has symmetric expansion. ABDOMEN: Obese, soft, nondistended, nontender. Active bowel sounds. EXTREMITIES: Warm, trace ankle edema. NEUROLOGIC: She is awake, alert and able to carry on a conversation and moves all 4 extremities. SKIN: Unremarkable other than several tattoos. LABORATORY DATA: Sodium 143, potassium 3.7, chloride 110, CO2 25, BUN 20, creatinine 0.98, blood sugar 124. CPK 44, troponin I less than 0.15. PT 12, INR 1.1, PTT 28. White blood cell count 11.44, hemoglobin 12.8, hematocrit 39.5 and platelets 369. IMAGING: Portable chest x-ray was reviewed and shows no acute process. EKG is not available in the chart nor is it in the computer. On the monitor, she has atrial fibrillation with bradycardic response. The Emergency Department physician did review EKG and reported flipped T waves in the anterior and lateral leads. IMPRESSION: 1. Calcium channel kam toxicity with bradycardia and hypotension, treated with calcium gluconate and glucagon and presently on a 10% calcium gluconate infusion. The poison control center was contacted by the Emergency Department as well as myself. 2. History of paroxysmal atrial fibrillation, on sotalol 80 mg b.i.d. She does not take diltiazem on a regular basis. 3. Hypotension and bradycardia secondary to #1, improved. 4. History of hypertension. 5. History of nocturnal hypoxemia with pending sleep study. 6. Chronic back pain. 7. History of myocardial infarction. PLAN: NEUROLOGIC: Watch for any signs of hypercalcemia, altered mental status or confusion. CARDIOVASCULAR: Continue calcium gluconate infusion and titrate to maintain mean arterial pressure greater than or equal to 65 and a heart rate greater than 50. Follow lactic acid level and consider echocardiogram tomorrow. Hold sotalol. Consider cardiology consult tomorrow. PULMONARY: No acute active issues. Watch for any signs of volume overload or pulmonary edema. GASTROINTESTINAL: She recently ate a sandwich. I would like her to be n.p.o. with the exception of liquids until the morning when things can be reassessed. If she is doing well, then allow a diet. Continue Miralax prn. RENAL: Electrolytes. Follow calcium every 2 hours as well as blood sugar every 2-4 hours. Continue to follow magnesium. A harmon was placed. ENDOCRINE: Check blood sugars every 2 hours. HEME: Continue Xarelto. She is responding well to the calcium gluconate infusion. If she stops responding or has additional hypotension and bradycardia, she can be treated with glucagon emergently and then consider a high-dose insulin infusion. A central line has been placed in the left groin. Please call me with any questions or concerns. Critical care time excluding procedures is 135 minutes. MTDD
--- NOTE | 2016-09-26 00:20 | OPERATIVE REPORT ---
DATE OF OPERATION: 09/25/2016 PROCEDURE: Left femoral triple lumen catheter placement. PREPROCEDURE DIAGNOSIS: Calcium channel kam overdose. POSTPROCEDURE DIAGNOSIS: Same. INDICATION: Need for frequent blood draws and adequate access for Emergency medicines and calcium infusion. DESCRIPTION OF PROCEDURE: After informed consent was obtained. I performed ultrasound on the right neck and I felt the right internal jugular vein to be very small. I found the the left femoral vein to be easily accessible. I did a timeout before I donned a hat, mask, sterile gown and sterile gloves and prepared the left groin with chlorhexidine after it was clipped with electric clippers. This was allowed to dry before I draped the patient in sterile fashion. Using 3 mL of 1% lidocaine, I numbed the skin adjacent to the left femoral vein after the vein was identified using the ultrasound. I then used an 18 gauge needle to cannulate the vein under ultrasound guidance. It took several passes to get good blood flow, but eventually I was able to feed the wire through the needle and the needle was removed. The blood was dark and nonpulsatile. I used a #[address] a jarett in the skin adjacent to the wire. The vein was then dilated over the wire using the dilator from the [employer] triple lumen kit. I then placed the triple lumen catheter over the wire and the wire was removed. All 3 ports had good blood flow and flushed easily. The line was sutured into place using 2-0 silk on a straight needle. The patient tolerated the procedure well. Hemostasis was achieved. A dressing was applied by Loan, her RN. I attest to the content of the Intraoperative Record and any orders documented therein. Any exceptions are noted below. THAO
[2016-09-26 01:21] LABS: BLOOD UREA NITROGEN 16 mg/dl (7-18); BUN/CREATININE RATIO 18.9 (10-20); CALCIUM 10.2 mg/dl (8.5-10.1); CARBON DIOXIDE 28 mmol/L (21-32); CHLORIDE 113 mmol/L (98-107); CREATININE 0.85 mg/dl (0.60-1.20); GLUCOSE 109 mg/dl (70-99); MAGNESIUM 1.7 mg/dl (1.8-2.4); SODIUM 148 mmol/L (136-145)
[2016-09-26 03:16] LABS: HEMATOCRIT 35.5 % (37-47); MEAN CELL VOLUME 85.3 fL (80-100); MEAN CORPUSCULAR HEMOGLOBIN 26.9 pg (25-34); MEAN CORPUSCULAR HGB CONC 31.5 g/dl (32-36); MEAN PLATELET VOLUME 10.2 fL (7.4-10.4); PLATELET COUNT 276 K/uL (130-400); RED BLOOD COUNT 4.16 M/uL (4.2-5.4); WHITE BLOOD COUNT 9.45 K/uL (4.8-10.8)
[2016-09-26 03:38] LABS: BUN/CREATININE RATIO 21.1 (10-20); CALCIUM 10.3 mg/dl (8.5-10.1); CREATININE 0.7 mg/dl (0.60-1.20); MAGNESIUM 1.7 mg/dl (1.8-2.4); POTASSIUM 4.1 mmol/L (3.5-5.1)
[2016-09-26 03:41] LABS: ALB/GLOB RATIO 0.9 (0.9-2); PHOSPHORUS 4.4 mg/dl (2.5-4.9)
--- NOTE | 2016-09-26 07:32 | HISTORY & PHYSICAL EXAMINATION ---
DATE OF ADMISSION: 09/25/2016 CHIEF COMPLAINT: Weakness, paresthesias, chest pain. HISTORY OF PRESENT ILLNESS: The patient is a very pleasant 61-year-old female who woke up this morning feeling pressure actually and the pressure began last night, she felt like there was an elephant on her chest. She noticed that her AFib was up to a heart rate as high as about 175 and so she took 240 mg of Cardizem at 2 a.m., 4 a.m. and 7 a.m. She notes previously her AFib was improved after a dose of Cardizem; however, she does have a lot struggles with AFib and notes that even with aggressive medical management, she continues to have some degree of problems with it at least once a month. She had chest tightness that felt somewhat similar to her previous heart attack, notes she is discussing ablation with her computer technical support specialist and when she came to the ER, she started to become hypotensive and bradycardic. Just before coming to the ER, she noted a lot of tingling, paresthesias in her hands and feet. The ER started the med management discussed with poison control. She is now on a calcium gluconate drip and generally feeling much better. She does not have the chest pressure anymore. She has a little bit of a vague discomfort she notes what she generally feels "pre atrial fibrillation" but it is not anything like what she was feeling earlier. PAST MEDICAL HISTORY: Paroxysmal atrial fibrillation, coronary artery disease, GERD, hypertension, migraines, prior MD. PAST SURGICAL HISTORY: Tubal ligation, heart cath showing nonobstructive coronary disease and prior cardioversions. EGD and colonoscopy. FAMILY HISTORY: Diabetes and heart disease. SOCIAL HISTORY: She is not a smoker. Social alcohol. ALLERGIES: SULFA AND LATEX. MEDICATIONS: Her home meds are albuterol b.i.d. p.r.n. shortness of breath or wheeze, ProAir two puffs q.i.d. p.r.n. shortness of breath or wheeze, diltiazem ER 240 mg p.r.n. atrial fibrillation attacks, iron sulfate 325 p.o. t.i.d., Zestril 5 mg daily, multivitamin daily, nitroglycerin 0.4 under the tongue p.r.n. chest pain, Prilosec 40 mg daily, Ditropan 5 mg daily at lunch, oxygen 3 liters at bedtime, MiraLax 17 grams daily p.r.n. constipation, Xarelto 20 mg daily, sotalol 80 mg b.i.d. PHYSICAL EXAMINATION: VITAL SIGNS: Her initial vitals showed a temp of 36.9, pulse 48, respiratory rate 18, blood pressure 102/62, 96% on room air. She briefly was as low as a heart rate of 38 with a blood pressure of 55/22 and more recently is showing a heart rate in the mid 40s with a blood pressure of 102/57, respiratory rate 16, 97% on room air. GENERAL: She is awake, alert, oriented x3, looks a little fatigued and appropriately anxious to the situation, but otherwise in no acute distress. HEENT: Normocephalic, atraumatic. Mucous membranes are moist. CARDIOVASCULAR: Regular without any rubs, murmurs, or gallops. She is very bradycardic. There may be a degree of irregularity that does not auscultate well and it is fairly quiet. LUNGS: Clear to auscultation bilaterally. No rales, rhonchi, or wheezes with good effort. ABDOMEN: Soft, nondistended, nontender, no masses or organomegaly. EXTREMITIES: Without cyanosis, clubbing or edema. No calf tenderness. SKIN: Shows no rashes, no pallor or icterus. NEUROLOGIC: Shows cranial nerves II-XII to be grossly intact. Gross motor and sensory are intact. MENTAL STATE: Good recent and remote recall. Normal mood and affect. Good judgment and insight. MUSCULOSKELETAL: Yields no gross lesions. LABS AND DIAGNOSTICS: CBC shows a white count 11.44, hemoglobin 12.8, platelets 369. Basic metabolic panel with sodium 143, potassium 3.7, chloride 110, CO2 25, BUN 20, creatinine 0.98, calcium 9.5, glucose 124, mag 2. CK total of 44 with an MB of 0.5. A troponin of less than 0.015. IMAGING: Her chest x-ray shows no active disease. Lungs are clear. Pulmonary vasculature normal, cardiomediastinal silhouette normal. She is what appears to be a bradycardic AFib. ASSESSMENT AND PLAN: 1. Bradycardia and hypotension. This is obviously due to the diltiazem overdose. This was accidental in terms of intent. She was simply trying to break her atrial fibrillation and now unfortunately has a fairly serious overload of the diltiazem. The ER has already discussed it with poison control and currently she has been stabilized on the calcium gluconate drip. They recommended 0.6 mL per kilogram per hour and titrate if needed. At this point in time, she is bradycardic but not hypotensive, and not asymptomatic, so we will continue the drip at its current rate, admit her to the ICU with the instructions to titrate the drip should she start to run in to any further hypotension, worse bradycardia or recurrence of her chest pain. Should this worsen, ER also noted talking with poison control that insulin and dextrose would be next possible agents which can be utilized should she continue to have symptoms. The patient will be seen in critical care consult in the ICU as well. 2. Atrial fibrillation. Currently, she is bradycardic. We discussed that her atrial fibrillation seems to cause her significant enough problems that she should definitely continue to follow up with computer technical support specialist to discuss ablations. We also discussed that with the low likelihood of prison success with ablation with her atrial fibrillation that should she have a successful ablation she really should still maintain stroke prophylaxis, continue her Xarelto, hold the sotalol obviously while she is bradycardic and obviously discontinue the diltiazem for now. 3. Hypertension. Hold her lisinopril until the blood pressure has stabilized more. 4. Deep venous thrombosis prophylaxis, she is on Xarelto. 5. Gastroesophageal reflux disease, continue her omeprazole. [facility]
[2016-09-26] MEDS: LACTATED RINGER'S 1000ML 1,000 ML IV SCH ×2 (08:09→21:11)
[2016-09-26] MEDS ORDERED: LISINOPRIL 5 MG TAB PO SCH (09:00)
[2016-09-26] MEDS: PANTOprazole SOD 40 MG TAB PO SCH (09:11)
[2016-09-26] MEDS: MULTIVITAMIN TAB PO SCH (09:11)
[2016-09-26] MEDS: OXYBUTYNIN CHLORIDE 5 MG TAB PO SCH (09:11)
[2016-09-26 09:32] LABS: CALCIUM 10.8 mg/dl (8.5-10.1)
[2016-09-26] MEDS: MAGNESIUM SULFATE 1GM / D5W 1 GM in PREMIXED IN D5W 100 ML IV SCH ×2 (09:39→10:39)
[2016-09-26] MEDS ORDERED: PERFLUTREN LIPID MICROSPHERE (DEFINITY) IV ONE (11:31)
--- NOTE | 2016-09-26 11:32 | CARDIOLOGY CONSULTATION ---
DATE OF CONSULTATION: 09/26/2016 CONSULTATION REQUESTED BY: Dr. Paulson. REASON FOR CONSULTATION: Atrial fibrillation with acute calcium-channel kam overdose. HISTORY OF PRESENT ILLNESS: Ms. Ortez is a very pleasant 61-year-old woman who normally follows with Dr. Voss of our cardiology practice for history of paroxysmal atrial fibrillation. The patient states that her symptoms started late in the evening of 09/24/2016. She states that she started to feel herself go back in atrial fibrillation. When this occurs, she normally develops an aura of a tingling sensation over her left chest up into her left shoulder and neck. She had already taken her sotalol that day so she took a Cardizem tablet that she was no longer prescribed. The patient was formerly on it, but Dr. Voss discontinued it in May. The patient states that she thought this would help break the atrial fibrillation. She states that she tried to go to bed, but she continued to have symptoms of feeling her heart pounding in her chest which is very uncomfortable for her. Over the course of the night, she took a total of 3 tablets of Cardizem-CD 240 mg, even though she has never been instructed to do this by a physician. She felt that this would help with her symptoms. The next morning when she got up, she no longer felt her heart pounding in her chest but she felt very dizzy and exhausted. She was rather lightheaded and nauseous. She checked her vital signs and found her pulse in the 30s and 40s and her blood pressure was in the 80 systolic. At that time, I was paged by the patient through the [employer] pill machine operator. She was asking for advice. The patient relayed to me what she had done including the total dosage of the calcium-channel kam that she had taken and I informed her that she was likely suffering from calcium-channel kam overdose and she is to call 911 immediately. The patient stated at that time that she understood and will comply. However, she did not call EMS and she was brought into the Emergency Department by private car. After I hung up the phone with the patient yesterday I contacted the Emergency Department and spoke with Dr. Ariza to alert him of the situation. She was seen in the Emergency Department and appropriate therapy was instituted and the poison control center was reportedly alerted and helped with the course of treatment. The patient was then admitted to the intensive care unit. Her heart rate and blood pressure were slowly improving at that point and she was on a calcium gluconate drip. Again the poison control center was consulted for management overnight, the patient then did relatively well, her bradycardia resolved and she actually converted to normal sinus rhythm early this a.m. Her symptoms have now resolved and her medications are being adjusted appropriately. Of note, the patient has a longstanding history of paroxysmal atrial fibrillation for which she has been rather symptomatic and discussion was had with her microwave radio technician, Dr. Voss of possible pulmonary vein isolation in the future for control. PAST SURGICAL HISTORY: 1. Tubal ligation. 2. Rotator cuff repair. 3. Upper endoscopy. 4. Carpal tunnel surgery. 5. Colonoscopy. MEDICAL ILLNESSES: 1. Paroxysmal atrial fibrillation on chronic sotalol and Xarelto anticoagulation with a CHADS2-VASc score of 2 for female sex, and hypertension. 2. History of intolerance to flecainide due to GI upset. 3. Elevated BMI. 4. Anemia. 5. Chronic sinusitis. 6. Obstructive sleep apnea, high probability currently being worked up. FAMILY HISTORY: Noncontributory. SOCIAL HISTORY: The patient denies any alcohol, tobacco or recreational drug use. She is . Lives at home. 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 REVIEW OF SYSTEMS: As per HPI, all other review of systems reviewed and negative at this time. ALLERGIES: SULFA. MEDICATIONS AN OUTPATIENT: 1. Sotalol 80 mg b.i.d. 2. Xarelto 20 mg with the evening meal. 3. Lisinopril 5 mg daily. 4. Prilosec daily. 5. Iron daily. PHYSICAL EXAMINATION: VITALS: Temperature 36.7, pulse 54, respiratory rate 12, blood pressure 119/73. GENERAL: Awake, alert, oriented x3 in no acute distress. HEENT: Normocephalic, atraumatic. Pupils equal, round, and reactive to light and accommodation. Extraocular muscles intact. Anicteric sclerae. Moist mucous membranes. NECK: No JVD, no bruit. CARDIOVASCULAR: Is now regular. Positive S4. Normal S1 and S2. No S3. No murmurs or rubs. PULMONARY: Clear to auscultation bilaterally with scant rhonchi. No rales or wheezing. ABDOMEN: Bowel sounds x4, soft. No rebound, guarding, tenderness. No organomegaly. EXTREMITIES: No clubbing, cyanosis or edema. +2 pedal pulses bilaterally. SKIN: Warm and dry. TEST RESULTS: A 12-lead EKG performed in the Emergency Department upon arrival independently reviewed at this time shows atrial flutter fibrillation at 49 beats per minute with a QTC of 439, poor R-wave progression across the precordium and inverted T waves in the anterior lateral leads. Repeat EKG this a.m. at 08:50 independently reviewed at this time shows sinus bradycardia at 52 beats per minute, QTC of 407, no significant ischemic changes. IMPRESSION: 1. Acute calcium-channel kam overdose. 2. Paroxysmal atrial fibrillation, currently in normal sinus rhythm on chronic Xarelto and sotalol, currently with a LINQ in place. 3. Hypertension. 4. Obstructive sleep apnea. RECOMMENDATIONS: It was my pleasure to see Mrs. Ortez in consultation today. Once again, the patient was counseled on the dangers of using medications in ways that it has not been prescribed and she states that she understands and will never do that again. Otherwise, the critical care team is taking very good care of her and the medications have been reviewed with the poison control center. So at this time the calcium gluconate drip will look to be turned off and she will be continued to be monitored in the ICU for now and then ultimately then on to telemetry for the next few days. At this point, I believe it would be gutierrez to hold her sotalol for now given the continued possible arrhythmogenic events with the calcium-channel kam overdose, but there is no contraindication to continue her Xarelto at this point. Otherwise a 2-D echocardiogram will be performed. As an outpatient, we will look to set her up for pulmonary vein isolation and have the LINQ removed given these findings. Thank you very much for allowing me to participate in the care of your patient.
--- NOTE | 2016-09-26 12:00 | ECHOCARDIOGRAM REPORT ---
*NOTICE TO RECEIVING CONSTITUTION PARTY AGENCY This information is strictly Confidential and protected under [place] law. [place] law prohibits you from making any further disclosure of this information unless further disclosure is expressly permitted by the written consent of the person to whom it pertains or is authorized by law. A general authorization for the release of medical or other information is not sufficient for this purpose. Hospital accepts no responsibility if the information is made available to any other person, INCLUDING THE PATIENT. Interpretation Summary * Name: WILSON PAYAN Study Date: 09/26/2016 10:50 AM BP: 112/66 mmHg * [facility] HR: 56 * : 1955 (M/d/yyyy) Gender: Female Height: 62 in * Age: 61 yrs Ethnicity: [place] Weight: 209 lb * Ordering Physician: Samir Jasso * Referring Physician: Self, Referred * Performed By: Nancy Fink RCS * * Reason For Study: CHEST PAIN * BSA: 1.9 m2 * -- Conclusions -- * Normal LV chamber size with borderline concentric LVH. * Normal LV systolic function, EF 55-60%. * No segmental left ventricular wall motion abnormalities are noted. * Normal diastolic function. * No significant valvular pathology. * Mild left atrial enlargement. Procedure Details * A complete two-dimensional transthoracic echocardiogram was performed (2D, M-mode, Doppler and color flow Doppler). * A contrast injection of Definity was performed to improve assessment of LV function. * One vial of Definity ultrasound contrast was diluted in normal saline to a total volume of 10 ml. A total of '2' ml of solution was administered during imaging. * Lot # [id number] of Definity utilized for procedure. * Expiration date OCT 24. * The attending nurse who injected the contrast agent was DENI JOE, RN. * Contrast site: left groin region. Left Ventricle * The left ventricle is normal in size. * There is borderline concentric left ventricular hypertrophy. * Ejection Fraction = 55-60%. * Left ventricular systolic function is normal. * No segmental left ventricular wall motion abnormalities are noted. * The left ventricular wall motion is normal. Right Ventricle * The right ventricular cavity size is normal (basal dimension <4.2 cm in right ventricular apical 4-chamber view). * The right ventricular systolic function is normal as assessed by tricuspid annular plane systolic excursion (TAPSE) (normal >1.5 cm). Atria * The left atrium is mildly dilated. * Right atrial size is normal. * No ASD detected; PFO is not assessed. Mitral Valve * The mitral valve is normal in structure and function. Tricuspid Valve * The tricuspid valve is normal in structure and function. Aortic Valve * The aortic valve is not well visualized. * No hemodynamically significant valvular aortic stenosis. * There is no significant aortic regurgitation. Pulmonic Valve * The pulmonary valve is not well seen, but the Doppler examination is normal without significant regurgitation or stenosis. Great Vessels * The aortic root is normal size. Pericardium/Pleural * There is no pericardial effusion. Left Ventricular Diastolic Function * Pulse wave TDI of the anterior and posterior mitral annulas demonstrates normal LV relaxation MMode 2D Measurements and Calculations IVSd 1.0 cm IVSs 1.7 cm LVIDd 5.1 cm LVIDs 3.7 cm LVPWd 1.2 cm LVPWs 1.3 cm IVS/LVPW 0.86 FS 27.0 % EDV(Teich) 124.7 ml ESV(Teich) 59.4 ml EF(Teich) 52.4 % EDV(cubed) 133.9 ml ESV(cubed) 52.1 ml EF(cubed) 61.1 % % IVS thick 66.9 % % LVPW thick 4.4 % LV mass(C)d 222.2 grams LV mass(C)dI 114.1 grams/m\S\2 LV mass(C)s 211.9 grams LV mass(C)sI 108.8 grams/m\S\2 SV(Teich) 65.3 ml SI(Teich) 33.5 ml/m\S\2 SV(cubed) 81.9 ml SI(cubed) 42.0 ml/m\S\2 Ao root diam 2.6 cm Ao root area 5.4 cm\S\2 LA dimension 4.4 cm LA/Ao 1.7 LVOT diam 2.7 cm LVOT area 5.9 cm\S\2 LVAd ap4 30.7 cm\S\2 LVLd ap4 9.0 cm EDV(MOD-sp4) 86.9 ml EDV(sp4-el) 88.8 ml LVAs ap4 20.2 cm\S\2 LVLs ap4 7.1 cm ESV(MOD-sp4) 47.5 ml ESV(sp4-el) 48.6 ml EF(MOD-sp4) 45.3 % EF(sp4-el) 45.2 % LVAd ap2 29.4 cm\S\2 LVLd ap2 8.3 cm EDV(MOD-sp2) 90.3 ml EDV(sp2-el) 88.1 ml LVAs ap2 16.8 cm\S\2 LVLs ap2 6.3 cm ESV(MOD-sp2) 37.9 ml ESV(sp2-el) 38.2 ml EF(MOD-sp2) 58.0 % EF(sp2-el) 56.6 % LVLd %diff -8.30 % EDV(MOD-bp) 92.1 ml LVLs %diff -12.70 % ESV(MOD-bp) 44.4 ml EF(MOD-bp) 51.7 % SV(MOD-sp4) 39.4 ml SI(MOD-sp4) 20.2 ml/m\S\2 SV(MOD-sp2) 52.4 ml SI(MOD-sp2) 26.9 ml/m\S\2 SV(MOD-bp) 47.6 ml SI(MOD-bp) 24.4 ml/m\S\2 SV(sp4-el) 40.2 ml SI(sp4-el) 20.6 ml/m\S\2 SV(sp2-el) 49.9 ml SI(sp2-el) 25.6 ml/m\S\2 Doppler Measurements and Calculations MV E max char[place] 90.6 cm/sec MV A max [place] 68.5 cm/sec MV E/A 1.3 MV P1/2t max [place] 102.4 cm/sec MV P1/2t 91.6 msec MVA(P1/2t) 2.4 cm\S\2 MV dec slope 327.4 cm/sec\S\2 MV dec time 0.21 sec Ao V2 max 138.7 cm/sec Ao max PG 7.7 mmHg Ao max PG (full) 1.0 mmHg LOUIS(V,A) 5.5 cm\S\2 LOUIS(V,D) 5.5 cm\S\2 LV V1 max PG 6.6 mmHg LV V1 max 128.9 cm/sec PA V2 max 105.9 cm/sec PA max PG 4.5 mmHg TR max [place] 255.4 cm/sec
--- NOTE | 2016-09-26 12:01 | Progress Note ---
Subjective Date of Service: September 26, 2016. Subjective Pt evaluation today including: conversation w/ patient, physical exam, chart review, lab review, review of studies, conversation w/ law firm consultant, review of inpatient medication list Pain: no pain reported PO Intake: excellent Voiding: harmon catheter in place pt is seen and examined by me. Pt denies Cp, SOB, dizziness, palpitation and LOC. Pt is fully awake, alert and oriented. Pt denies abd pain and urinary symptoms.Pt denies fever, chills, rigors and sweats. Pt denies nausea , vomiting and diarrhea. Pt has good appetite. Problem List Medical Problems: (1) Acute electrocardiogram changes Status: Acute (2) Atrial fibrillation with RVR Status: Acute (3) Bradycardia with 41-50 beats per minute Status: Acute (4) Calcium channel kam overdose Status: Acute (5) Chest pain Status: Acute (6) Hypotension due to medication Status: Acute (7) Junctional escape rhythm Status: Acute Review of Systems All Other Systems: Reviewed and Negative Medications Medications (Trade) Dose Ordered Sig/Aicha Route Start Time Stop Time Status Last Admin Dose Admin Glucagon (Glucagon Inj) 1 mg STK-MED ONCE .ROUTE 09/25/16 17:40 09/25/16 17:41 DC 09/25/16 17:40 1 MG Calcium Gluconate 1000 mg 1,000 mg STK-MED ONCE IV 09/25/16 17:40 09/25/16 17:41 DC 09/25/16 17:43 1,000 MG Sodium Chloride (Nss 1000ml) 1,000 ml @ 999 mls/hr Q1H1M STAT IV 09/25/16 17:40 09/25/16 18:40 DC 09/25/16 17:40 999 MLS/HR Ondansetron HCl (Zofran Inj) 4 mg STK-MED ONCE .ROUTE 09/25/16 17:49 09/25/16 17:50 DC 09/25/16 17:56 4 MG Glucagon 2 mg 2 mg STK-MED ONCE .ROUTE 09/25/16 17:53 09/25/16 17:54 DC 09/25/16 17:55 2 MG Calcium Gluconate/ Sodium Chloride (Calcium Gluconate 10%/Nss 50ml) 60 ml @ 58 mls/hr 1830 ONCE IV 09/25/16 18:30 09/25/16 19:32 DC 09/25/16 18:22 58 MLS/HR Ondansetron HCl 4 mg 4 mg NOW STAT IV 09/25/16 18:13 09/25/16 18:15 DC 09/25/16 18:22 4 MG Calcium Gluconate/ Sodium Chloride (Calcium Gluconate 10%/Nss 250ml) 300 ml @ 84 mls/hr TODAY@1930 ONCE IV 09/25/16 19:30 09/25/16 23:04 DC 09/25/16 19:24 84 MLS/HR Multivitamins (Multivitamin Tab) 1 tab QAM PO 09/26/16 09:00 10/26/16 08:59 09/26/16 09:11 1 TAB Oxybutynin Chloride (Ditropan Tab) 5 mg DAILY PO 09/26/16 09:00 10/26/16 08:59 09/26/16 09:11 5 MG Rivaroxaban (Xarelto Tab) 20 mg QPM PO 09/25/16 21:00 10/25/16 20:59 09/25/16 22:53 20 MG Pantoprazole Sodium 40 mg 40 mg QAM PO 09/26/16 09:00 10/26/16 08:59 09/26/16 09:11 40 MG Lactated Ringer's 1,000 ml @ 100 mls/hr Q10H IV 09/25/16 21:30 10/25/16 21:29 09/26/16 08:09 100 MLS/HR Sodium Chloride (Nss 500ml) 500 ml @ 500 mls/hr Q1H IV 09/25/16 21:00 09/25/16 21:59 DC 09/25/16 21:52 500 MLS/HR Lidocaine HCl 20 ml 20 ml STK-MED ONCE .ROUTE 09/25/16 22:07 09/25/16 22:08 DC 09/25/16 22:54 20 ML Magnesium Sulfate/ Prmx (Magnesium Sulfate/Premixed D5W) 100 ml @ 100 mls/hr Q1H IV 09/26/16 09:15 09/26/16 11:14 DC 09/26/16 10:39 100 MLS/HR Perflutren Lipid Microsphere (Definity) 2 ml ONE ONCE IV 09/26/16 11:31 09/26/16 11:32 DC 09/26/16 11:31 2 ML Objective Vital Signs Date Time Temp Pulse Resp B/P Pulse Ox O2 Delivery O2 Flow Rate FiO2 09/26/16 10:00 57 16 112/66 97 Nasal Cannula 2.0 09/26/16 08:46 54 17 119/73 98 Nasal Cannula 2.0 09/26/16 08:32 54 17 121/71 98 Nasal Cannula 2.0 09/26/16 08:16 53 12 115/64 94 Nasal Cannula 2.0 09/26/16 08:01 36.7 65 14 116/69 97 Nasal Cannula 2.0 09/26/16 08:00 Nasal Cannula 2.0 09/26/16 07:46 65 14 135/68 97 Nasal Cannula 2.0 09/26/16 07:31 84 13 124/64 97 Nasal Cannula 2.0 09/26/16 07:16 91 19 135/87 96 Nasal Cannula 2.0 09/26/16 07:01 79 13 137/68 97 Nasal Cannula 2.0 09/26/16 06:01 36.8 79 18 107/68 95 Room Air 09/26/16 05:46 74 17 126/56 93 Room Air 09/26/16 05:31 79 16 108/76 96 Room Air 09/26/16 05:16 57 17 118/65 96 Room Air 09/26/16 05:01 101 14 137/73 94 Room Air 09/26/16 04:46 73 21 136/86 93 Room Air 09/26/16 04:31 76 15 106/66 96 Room Air 09/26/16 04:16 61 18 112/61 93 Room Air 09/26/16 04:10 97 Nasal Cannula 2.0 09/26/16 04:01 36.8 62 16 109/56 92 Room Air 09/26/16 03:46 57 16 115/55 96 Room Air 09/26/16 03:31 56 15 90/51 94 Room Air 09/26/16 03:01 61 15 110/57 96 09/26/16 02:46 65 16 118/67 96 Room Air 09/26/16 02:31 46 17 117/63 93 Room Air 09/26/16 02:16 62 21 111/62 Room Air 09/26/16 02:01 65 17 95/60 92 Room Air 09/26/16 01:46 59 17 114/59 95 Room Air 09/26/16 01:31 53 18 99/57 94 Room Air 5 01:16 50 17 109/62 94 Room Air 5 01:01 45 16 105/52 91 Room Air 5 00:46 78 26 98/49 Room Air 09/26/16 00:32 58 14 99/53 95 Room Air 09/26/16 00:16 69 13 92/55 95 Room Air 5 00:04 97 Nasal Cannula 2.0 09/26/16 00:01 59 25 113/58 97 Room Air 52017 23:47 57 17 103/62 96 Room Air 5 23:31 70 20 139/67 Room Air 5 23:01 58 15 116/65 94 Room Air 09/25/16 22:46 65 12 106/66 95 Room Air 09/25/16 22:32 61 13 105/59 91 Room Air 09/25/16 22:16 56 16 108/57 97 Room Air 09/25/16 22:01 36.8 49 18 102/54 94 Room Air 5 21:46 56 13 86/48 95 Room Air 09/25/16 21:36 36.8 47 17 106/53 Room Air 09/25/16 21:34 55 11 86/50 96 Room Air 09/25/ 21:31 50 14 81/56 96 Room Air 09/25/17 21:01 48 17 106/53 97 Room Air 09/25/ 20:45 36.8 49 22 93/52 94 Room Air 09/25/16 19:44 48 18 103/52 97 09/25/ 19:20 45 18 115/57 97 Room Air 520/17 19:01 48 16 102/57 98 Nasal Cannula 2.0 09/25/16 18:42 45 18 99/55 96 Nasal Cannula 3.5 09/25/16 18:31 44 16 83/43 97 Nasal Cannula 2.0 20/17 18:17 48 18 132/64 98 Nasal Cannula 2.0 20/17 18:11 48 16 97/51 97 520/17 18:08 45 16 69/33 97 Nasal Cannula 2.0 20/17 18:01 51 18 80/43 98 Nasal Cannula 2.0 5/20/17 17:51 44 16 105/36 97 09/25/16 17:45 100 Nasal Cannula 2.0 09/25/16 17:44 46 18 113/49 99 Nasal Cannula 2.0 09/25/16 17:36 38 16 55/22 99 Nasal Cannula 2.0 09/25/16 17:31 48 09/25/16 17:15 36.9 48 18 102/62 96 Room Air Physical Exam General Appearance: WD/WN, no apparent distress Eyes: EOMI Neck: supple, no adenopathy, no JVD Respiratory/Chest: chest non-tender, lungs clear, normal breath sounds, no respiratory distress, no accessory muscle use Cardiovascular: regular rate, rhythm, no edema, no gallop, no murmur Abdomen: normal bowel sounds, non tender, soft Extremities: no pedal edema, no calf tenderness Neurologic/Psychiatric: no motor/sensory deficits, alert, normal mood/affect, oriented x 3 Skin: no rash Lymphatic: no adenopathy Laboratory Results Last 24 Hours Test 09/25/16 17:35 09/25/16 18:13 09/25/16 19:05 09/25/16 21:06 White Blood Count 11.44 K/uL Red Blood Count 4.71 M/uL Hemoglobin 12.8 g/dL Hematocrit 39.5 % Mean Corpuscular Volume 83.9 fL Mean Corpuscular Hemoglobin 27.2 pg Mean Corpuscular Hemoglobin Concent 32.4 g/dl Platelet Count 369 K/uL Mean Platelet Volume 10.4 fL Neutrophils (%) (Auto) 52.6 % Lymphocytes (%) (Auto) 36.5 % Monocytes (%) (Auto) 8.2 % Eosinophils (%) (Auto) 2.0 % Basophils (%) (Auto) 0.4 % Neutrophils # (Auto) 6.00 K/uL Lymphocytes # (Auto) 4.18 K/uL Monocytes # (Auto) 0.94 K/uL Eosinophils # (Auto) 0.23 K/uL Basophils # (Auto) 0.05 K/uL RDW Standard Deviation 43.3 fL RDW Coefficient of Variation 14.2 % Immature Granulocyte % (Auto) 0.3 % Immature Granulocyte # (Auto) 0.04 K/uL Sodium Level 143 mmol/L 142 mmol/L Potassium Level 3.7 mmol/L 4.0 mmol/L Chloride Level 110 mmol/L 110 mmol/L Carbon Dioxide Level 25 mmol/L 25 mmol/L Anion Gap 8.0 mmol/L 7.0 mmol/L Blood Urea Nitrogen 20 mg/dl 21 mg/dl Creatinine 0.98 mg/dl 0.79 mg/dl Est Creatinine Clear Calc Drug Dose 66.8 ml/min 82.9 ml/min Estimated GFR () 73.2 95.0 Estimated GFR (Non- 63.1 81.9 BUN/Creatinine Ratio 20.6 26.8 Random Glucose 124 mg/dl 95 mg/dl Calcium Level 9.5 mg/dl 10.2 mg/dl Magnesium Level 2.0 mg/dl Total Creatine Kinase 44 U/L Creatine Kinase MB 0.5 ng/ml Creatine Kinase MB Ratio 1.1 Troponin I < 0.015 ng/ml Bedside Glucose 151 mg/dl 117 mg/dl Prothrombin Time 12.0 SECONDS Prothromb Time International Ratio 1.1 Activated Partial Thromboplast Time 28.0 SECONDS Partial Thromboplastin Ratio 1.1 Lactic Acid Level 1.5 mmol/L Ionized Calcium 1.36 mmol/l Test 09/25/16 22:36 09/25/16 23:00 09/26/16 00:39 09/26/16 00:55 Bedside Glucose 87 mg/dl 112 mg/dl Calcium Level 10.6 mg/dl 10.2 mg/dl Sodium Level 148 mmol/L Potassium Level 4.0 mmol/L Chloride Level 113 mmol/L Carbon Dioxide Level 28 mmol/L Anion Gap 7.0 mmol/L Blood Urea Nitrogen 16 mg/dl Creatinine 0.85 mg/dl Est Creatinine Clear Calc Drug Dose 76.6 ml/min Estimated GFR () 86.9 Estimated GFR (Non- 75.0 BUN/Creatinine Ratio 18.9 Random Glucose 109 mg/dl Magnesium Level 1.7 mg/dl Troponin I < 0.015 ng/ml Test 09/26/16 03:07 09/26/16 03:08 09/26/16 06:03 09/26/16 07:02 White Blood Count 9.45 K/uL Red Blood Count 4.16 M/uL Hemoglobin 11.2 g/dL Hematocrit 35.5 % Mean Corpuscular Volume 85.3 fL Mean Corpuscular Hemoglobin 26.9 pg Mean Corpuscular Hemoglobin Concent 31.5 g/dl RDW Standard Deviation 44.5 fL RDW Coefficient of Variation 14.3 % Platelet Count 276 K/uL Mean Platelet Volume 10.2 fL Sodium Level 147 mmol/L Potassium Level 4.1 mmol/L Chloride Level 111 mmol/L Carbon Dioxide Level 27 mmol/L Anion Gap 9.0 mmol/L Blood Urea Nitrogen 15 mg/dl Creatinine 0.70 mg/dl Est Creatinine Clear Calc Drug Dose 93.0 ml/min Estimated GFR () 109.9 Estimated GFR (Non- 94.8 BUN/Creatinine Ratio 21.1 Random Glucose 104 mg/dl Lactic Acid Level 1.8 mmol/L Calcium Level 10.3 mg/dl 10.9 mg/dl Phosphorus Level 4.4 mg/dl Magnesium Level 1.7 mg/dl Total Bilirubin 0.2 mg/dl Aspartate Amino Transf (AST/SGOT) 12 U/L Alanine Aminotransferase (ALT/SGPT) 30 U/L Alkaline Phosphatase 63 U/L Total Protein 6.3 gm/dl Albumin 3.0 gm/dl Globulin 3.3 gm/dl Albumin/Globulin Ratio 0.9 Bedside Glucose 104 mg/dl 109 mg/dl Test 09/26/16 09:05 09/26/16 11:25 Calcium Level 10.8 mg/dl Troponin I < 0.015 ng/ml Assessment and Plan 1. Calcium channel kam toxicity with bradycardia and hypotension, unintentional by a 61 year old pleasant female with past medical history of A.fib. - ICU management as per catapult and arresting gear officer - Continue calcium gluconate and glucagon and presently on a 10% calcium gluconate infusion. - poison control center informed by Ed and also catapult and arresting gear officer. - cardiology on case. 2. History of paroxysmal atrial fibrillation,on chronic sotalol and Xarelto anticoagulation with a CHADS2-VASc score of 2 for female sex, and hypertension. 3. Hypotension and bradycardia secondary to #1, improved. 4. History of hypertension. 5. Chronic back pain. 6. History of myocardial infarction Continued [facility] stay due to: multiple IV medications needed Discharge planning: home
--- NOTE | 2016-09-26 14:47 | CRITICAL CARE PROGRESS NOTE ---
DATE: 09/26/2016 HISTORY OF PRESENT ILLNESS: This is a 61-year-old woman who took diltiazem extended release 240 mg x3 over the course of 5 hours yesterday in an attempt to control her atrial fibrillation. She presented to the Emergency Department with dizziness, nausea, vomiting, bradycardia and hypotension. She was treated with glucagon as well as calcium gluconate and was on a calcium gluconate infusion until a few hours ago. Last night, her blood pressure and heart rate stabilized and actually improved to the point where the infusion was decreased and eventually stopped today after I discussed her care with the poison control center. She feels much better today and is eating a regular diet. She still has her Nails catheter and triple lumen catheter in place. She converted to sinus bradycardia at about 07:45 this morning. OBJECTIVE: VITAL SIGNS: Maximum temperature 36.9, heart rate 47-79, respiratory rate 18, blood pressure 106-126/60s-70s, and oxygen saturation 95% on room air. 24-hour fluid balance is positive 524 mL. No bowel movement since admission. GENERAL: She is awake, alert and in no distress. NEUROLOGIC: She follows commands and is able to move herself around the bed without trouble. LUNGS: Clear to auscultation bilaterally. No rales, rhonchi or wheezes. HEART: Regular rate and rhythm. No murmurs. ABDOMEN: Obese, soft, nondistended, and nontender. Active bowel sounds. EXTREMITIES: Warm. No edema. Left femoral triple lumen catheter site has a small amount of blood on it, but is not actively bleeding. LABORATORY DATA: White blood cell count 9.45, hemoglobin 11.2, hematocrit 35.5, and platelets 276. Troponin 0.015. Calcium 10.6, sodium 147, potassium 4.1, chloride 111, CO2 of 27, BUN 15, creatinine 0.7, blood sugar 104, lactate 1.8, and magnesium 1.7. AST 12, total bilirubin 0.2, and albumin 3. MEDICATIONS: Albuterol p.r.n., calcium gluconate infusions, lactated Ringer's 100 mL per hour, multivitamin daily, Nitrostat p.r.n., oxybutynin 5 mg daily, Protonix 40 mg daily, MiraLax 17 grams daily p.r.n. constipation and Xarelto 20 mg every evening. IMAGING STUDIES: EKG from this morning reviewed. Most recently, sinus bradycardia with NJ interval 180 milliseconds, QRS 98 milliseconds, corrected QT interval 407 milliseconds, no acute changes, and T waves are flat throughout. Echocardiogram today shows preserved left ventricular systolic function. Ejection fraction 50%-55%, no wall motion abnormalities and normal diastolic function, mild left atrial enlargement. IMPRESSION: 1. Calcium channel kam toxicity, improved. She is off the calcium gluconate infusion and maintaining her heart rate and blood pressure. Symptomatically, she feels much better as well. 2. History of atrial fibrillation, typically on sotalol 80 mg b.i.d. as well as Xarelto. She has been seen by the cardiology service and we will continue to hold her sotolol. She is back in sinus rhythm. 3. Mild hypercalcemia secondary to the calcium infusion. This should improve now that is has been stopped. Clinically, she is not having any symptoms of hypercalcemia. 4. History of hypertension. 5. Nocturnal hypoxemia with pending sleep study, likely obstructive sleep apnea. 6. History of myocardial infarction. PLAN: 1. Monitor off the calcium infusion. 2. Discontinue Nails catheter. 3. If she is eating well, discontinue lactated Ringer's. 4. Continue to hold sotalol. 5. Replete magnesium and follow up sodium tomorrow. 6. Continue MiraLax p.r.n. 7. Continue Xarelto. Consider transfer to telemetry later today if she remains stable. [facility]
[2016-09-26 15:18] LABS: BUN/CREATININE RATIO 12.4 (10-20); CALCIUM 9.2 mg/dl (8.5-10.1); CREATININE 0.86 mg/dl (0.60-1.20); POTASSIUM 4.1 mmol/L (3.5-5.1)
[2016-09-26] MEDS ORDERED: NURSING VERBAL MED ORDER ONE (20:45)
[2016-09-26] MEDS: FLUTICASONE PROPIONATE NA SPR 16 GM BTL NAE SCH (21:10)
[2016-09-26] MEDS: RIVAROXABAN 10 MG TAB PO SCH (21:11)
[2016-09-26] MEDS: ACETAMINOPHEN 325 MG TAB PO PRN (21:13)
[2016-09-27] VITALS (14 sets, daily range): BP systolic 111–149; BP diastolic 52–84; PULSE 54–72; TEMP 36.4–37; O2SAT 94–99
[2016-09-27 05:39] LABS: HEMATOCRIT 35.9 % (37-47); MEAN CELL VOLUME 84.9 fL (80-100); MEAN CORPUSCULAR HGB CONC 31.8 g/dl (32-36); MEAN PLATELET VOLUME 10.2 fL (7.4-10.4); PLATELET COUNT 257 K/uL (130-400); RED BLOOD COUNT 4.23 M/uL (4.2-5.4); WHITE BLOOD COUNT 7.56 K/uL (4.8-10.8)
[2016-09-27 06:14] LABS: BUN/CREATININE RATIO 19.2 (10-20); CALCIUM 8.1 mg/dl (8.5-10.1); CREATININE 0.66 mg/dl (0.60-1.20); MAGNESIUM 1.7 mg/dl (1.8-2.4); POTASSIUM 3.8 mmol/L (3.5-5.1)
[2016-09-27] MEDS: MULTIVITAMIN TAB PO SCH (08:30)
[2016-09-27] MEDS: FLUTICASONE PROPIONATE NA SPR 16 GM BTL NAE SCH ×2 (08:30→21:49)
[2016-09-27] MEDS: OXYBUTYNIN CHLORIDE 5 MG TAB PO SCH (08:30)
[2016-09-27] MEDS: PANTOprazole SOD 40 MG TAB PO SCH (08:30)
[2016-09-27] MEDS ORDERED: DOCUSATE SODIUM 100 MG CAP PO ONE (09:00)
[2016-09-27] MEDS ORDERED: DOCUSATE SODIUM 100 MG CAP PO PRN (09:00)
[2016-09-27] MEDS ORDERED: MAGNESIUM SULFATE 1GM / D5W 1 GM in PREMIXED IN D5W 100 ML IV STA (09:03)
--- NOTE | 2016-09-27 09:17 | Progress Note ---
Subjective Date of Service: September 27, 2016. Subjective Pt evaluation today including: conversation w/ patient, physical exam, chart review, lab review, review of studies, conversation w/ remediation consultant, review of inpatient medication list doing well, up to chair, c/o constipation when asking, no other c/o, HR at 80's Problem List Medical Problems: (1) Acute electrocardiogram changes Status: Acute (2) Atrial fibrillation with RVR Status: Acute (3) Bradycardia with 41-50 beats per minute Status: Acute (4) Calcium channel kam overdose Status: Acute (5) Chest pain Status: Acute (6) Hypotension due to medication Status: Acute (7) Junctional escape rhythm Status: Acute Review of Systems Constitutional: No chills, No fatigue, No fever, No problem reported, No sweats , No weakness, No weight loss Eyes: No diplopia, No discharge, No eye pain, No redness, No worsening of vision ENT: No dental problems, No hearing loss, No nasal symptoms, No sore throat, No tinnitus, No trouble swallowing, No unusual epistaxis Respiratory: No cough, No dyspnea at rest, No dyspnea on exertion, No hemoptysis, No shortness of breath, No sputum, No wheezing Cardiac: No PND, No chest pain, No claudication, No edema, No orthopnea, No palpitations Abdomen: + constipation, No diarrhea, No nausea, No pain, No vomiting Musculoskeletal: No calf pain, No joint pain, No muscle pain, No swelling Female : No abnormal vaginal bleeding, No dysuria, No hematuria, No incontinence, No urinary frequency, No vaginal discharge Neurologic: No balance problems, No memory loss, No numbness/tingling, No paralysis, No vertigo, No weakness Psychiatric: No anhedonism, No anxiety, No depression symptoms, No insomnia, No substance abuse Heme: No abnormal bleeding/bruising, No clotting problems, No night sweats, No swollen lymph nodes Endo: No excessive thirst, No excessive urination, No fatigue Skin: No bleeding, No color change, No itch, No new/changing skin lesions, No rash Objective Vital Signs Date Time Temp Pulse Resp B/P Pulse Ox O2 Delivery O2 Flow Rate FiO2 09/27/16 08:26 36.7 61 19 142/70 96 Room Air 09/27/16 08:00 Room Air 2.0 09/27/16 06:04 36.8 57 15 116/56 98 Room Air 09/27/16 04:20 97 Room Air 09/27/16 04:01 36.8 61 14 136/67 97 Room Air 09/27/16 03:01 54 16 111/61 95 Room Air 09/27/16 02:01 70 16 123/58 94 Room Air 09/27/16 01:01 56 16 114/52 96 Room Air 09/27/16 00:25 97 Room Air 09/27/16 00:02 61 15 122/69 99 Room Air 09/26/16 23:01 60 17 124/58 96 Room Air 09/26/16 22:01 81 17 143/100 92 Room Air 09/26/16 21:01 66 18 127/78 92 Room Air 09/26/16 20:11 97 Room Air 09/26/16 20:01 36.8 74 19 137/82 93 Room Air 09/26/16 19:01 69 15 130/63 93 Room Air 09/26/16 18:01 67 15 121/66 94 Room Air 09/26/16 17:31 66 16 135/64 94 Room Air 09/26/16 17:01 74 17 133/72 93 Room Air 09/26/16 16:00 Room Air 09/26/16 16:00 36.9 61 16 128/63 97 Nasal Cannula 2.5 09/26/16 14:01 67 16 127/63 96 Room Air 09/26/16 12:01 36.6 67 25 133/76 94 Room Air 09/26/16 12:00 Room Air 09/26/16 11:48 69 17 124/79 93 Room Air 09/26/16 11:31 64 13 88/75 97 Nasal Cannula 2.0 09/26/16 11:01 58 19 121/79 95 Nasal Cannula 2.0 09/26/16 10:00 57 16 112/66 97 Nasal Cannula 2.0 Physical Exam General Appearance: WD/WN, no apparent distress, + obese Eyes: normal inspection, PERRL, EOMI, sclerae normal ENT: normal ENT inspection, hearing grossly normal, pharynx normal Neck: supple, no adenopathy, thyroid normal, no JVD, no carotid bruits, trachea midline Respiratory/Chest: chest non-tender, lungs clear, normal breath sounds, no respiratory distress, no accessory muscle use Cardiovascular: regular rate, rhythm, no edema, no gallop, no JVD, no murmur Abdomen: normal bowel sounds, non tender, soft, no organomegaly, no pulsatile mass Extremities: normal range of motion, non-tender, normal inspection, no pedal edema, no calf tenderness, normal capillary refill, pelvis stable Neurologic/Psychiatric: compliance field technician II-XII nml as tested, no motor/sensory deficits, alert, normal mood/affect, oriented x 3 Skin: normal color, warm/dry, no rash Lymphatic: no adenopathy Laboratory Results Last 24 Hours Test 09/26/16 11:23 09/26/16 11:25 09/26/16 14:47 09/27/16 05:28 Bedside Glucose 100 mg/dl Calcium Level 10.6 mg/dl 9.2 mg/dl 8.1 mg/dl Sodium Level 142 mmol/L 144 mmol/L Potassium Level 4.1 mmol/L 3.8 mmol/L Chloride Level 106 mmol/L 107 mmol/L Carbon Dioxide Level 30 mmol/L 31 mmol/L Anion Gap 6.0 mmol/L 6.0 mmol/L Blood Urea Nitrogen 11 mg/dl 13 mg/dl Creatinine 0.86 mg/dl 0.66 mg/dl Est Creatinine Clear Calc Drug Dose 75.7 ml/min 98.6 ml/min Estimated GFR () 85.7 112.1 Estimated GFR (Non- 73.9 96.7 BUN/Creatinine Ratio 12.4 19.2 Random Glucose 116 mg/dl 98 mg/dl White Blood Count 7.56 K/uL Red Blood Count 4.23 M/uL Hemoglobin 11.4 g/dL Hematocrit 35.9 % Mean Corpuscular Volume 84.9 fL Mean Corpuscular Hemoglobin 27.0 pg Mean Corpuscular Hemoglobin Concent 31.8 g/dl RDW Standard Deviation 42.3 fL RDW Coefficient of Variation 13.7 % Platelet Count 257 K/uL Mean Platelet Volume 10.2 fL Magnesium Level 1.7 mg/dl Assessment and Plan 61 yo admitted on 09/25/2016 because of Acute calcium-channel kam overdose, stable Calcium channel kam toxicity with bradycardia and hypotension, unintentional past medical history of A.fib. has been in ICU was on calcium gluconate and glucagon and presently on a 10% calcium gluconate infusion. poison control center informed by Ed and also scientific software engineer. cardiology on case, Paroxysmal atrial fibrillation, currently in normal sinus rhythm on chronic Xarelto and sotalol, again has counseled on the dangers of using medications in ways that it has not been prescribed and she states that she understands and will never do that again. 2-D echocardiogram was done, per report in below * Normal LV chamber size with borderline concentric LVH. * Normal LV systolic function, EF 55-60%. * No segmental left ventricular wall motion abnormalities are noted. * Normal diastolic function. * No significant valvular pathology. * Mild left atrial enlargement. per supervisor cutting department , they will look to set her up for pulmonary vein isolation and have the LINQ removed given these findings. supervisor cutting department and scientific software engineer ok to be off ICU, and supervisor cutting department will start Sotalol Hypotension and bradycardia secondary to resolved, improved. Mag replaced History of hypertension. Chronic back pain. History of myocardial infarction the above condition is stable constipation d/w pt GI , DVT px ordered possible home joyce Continued [facility] stay due to: home environment unsafe for pt Discharge planning: home
[2016-09-27] MEDS ORDERED: SOTALOL HCL 80 MG TAB PO ONE (09:30)
[2016-09-27] MEDS: MAGNESIUM OXIDE 400 MG TAB PO SCH ×2 (09:30→21:50)
--- NOTE | 2016-09-27 09:35 | Cardiology Follow-Up ---
Subjective Subjective Date of Service: September 27, 2016. Pt evaluation today including: conversation w/ patient, physical exam, chart review, lab review, review of studies, review of inpatient medication list Additional Details: Pt seen and examined, oob in chair. States that she's feeling ok. Some constipation but denies cp, sob, palpitations, lightheadedness or dizziness. Tele reviewed: sinus rhythm without arrhythmia or significant ectopy Problem List Medical Problems: (1) Acute electrocardiogram changes Status: Acute (2) Atrial fibrillation with RVR Status: Acute (3) Bradycardia with 41-50 beats per minute Status: Acute (4) Calcium channel kam overdose Status: Acute (5) Chest pain Status: Acute (6) Hypotension due to medication Status: Acute (7) Junctional escape rhythm Status: Acute Review of Systems Constitutional: No chills, No fatigue, No fever, No problem reported, No sweats , No weakness, No weight loss Eyes: No diplopia, No discharge, No eye pain, No redness, No worsening of vision ENT: No dental problems, No hearing loss, No nasal symptoms, No sore throat, No tinnitus, No trouble swallowing, No unusual epistaxis Respiratory: No cough, No dyspnea at rest, No dyspnea on exertion, No hemoptysis, No shortness of breath, No sputum, No wheezing Cardiac: No PND, No chest pain, No claudication, No edema, No orthopnea, No palpitations Abdomen: + constipation, No diarrhea, No nausea, No pain, No vomiting Musculoskeletal: No calf pain, No joint pain, No muscle pain, No swelling Female : No abnormal vaginal bleeding, No dysuria, No hematuria, No incontinence, No urinary frequency, No vaginal discharge Neurologic: No balance problems, No memory loss, No numbness/tingling, No paralysis, No vertigo, No weakness Psychiatric: No anhedonism, No anxiety, No depression symptoms, No insomnia, No substance abuse Heme: No abnormal bleeding/bruising, No clotting problems, No night sweats, No swollen lymph nodes Endo: No excessive thirst, No excessive urination, No fatigue Skin: No bleeding, No color change, No itch, No new/changing skin lesions, No rash Objective Vital Signs Last Vital Signs Documentation Date Time Temp Pulse Resp B/P Pulse Ox O2 Delivery O2 Flow Rate FiO2 09/27/16 08:26 36.7 61 19 142/70 96 Room Air 09/27/16 08:00 2.0 Physical Exam: General Appearance: WD/WN, no apparent distress, + obese Eyes: bilateral eyes EOMI, bilateral eyes PERRL, bilateral eyes normal inspection ENT: normal ENT inspection, hearing grossly normal, pharynx normal Neck: supple, no adenopathy, thyroid normal, no JVD, no carotid bruits, trachea midline Respiratory/Chest: chest non-tender, lungs clear, normal breath sounds, no respiratory distress, no accessory muscle use Cardiovascular: regular rate, rhythm, no edema, no gallop, no JVD, no murmur Abdomen: normal bowel sounds, non tender, soft, no organomegaly, no pulsatile mass Extremities: normal range of motion, non-tender, normal inspection, no pedal edema, no calf tenderness, normal capillary refill, pelvis stable Neurologic/Psychiatric: wildlife forensic geneticist II-XII nml as tested, no motor/sensory deficits, alert, normal mood/affect, oriented x 3 Skin: normal color, warm/dry, no rash Lymphatic: no adenopathy Assessment and Plan 1. calcium channel kam overdose resolved gtt turned off on 09/26 no significant bradycardia or hypotension now pt once again counseled on not taking medications above what is recommended by her physicians, she states that she will comply repeat EKG to follow QT 2. PAF during this patient spontaneously converted sotalol initially held secondary to concern for arrhythmias will now restart will have to monitor for at least 3 doses daily EKG to follow QTc do not expect an issue since patient tolerating medication previously cont Xarelto ok to transfer to tele from cardiac standpoint Continued [facility] stay due to: home environment unsafe for pt Discharge planning: home
--- NOTE | 2016-09-27 10:08 | Critical Care Progress Note ---
Critical Care Progress Note Date of Service September 27, 2016. ICU Day ICU Day Number: [address] Pierson Subjective No complaint of shortness of breath or chest pain. Feels good today Objective GENERAL: She is awake, alert and in no distress. NEUROLOGIC: She follows commands and is able to move herself around the bed without trouble. LUNGS: Clear to auscultation bilaterally. No rales, rhonchi or wheezes. HEART: Regular rate and rhythm. No murmurs. ABDOMEN: Obese, soft, nondistended, and nontender. EXTREMITIES: Warm. No edema. Current SOFA Score SOFA Score Response (Comments) Value Platelets (x10) > 150 0 Bilirubin (mg/dL) < 1.2 0 Lynch Coma Score 15 0 Level of Hypotension No Hypotension 0 Creatinine (mg/dL) < 1.2 0 Total 0 Assessment & Plan IMPRESSION: 1. Calcium channel kam toxicity, improved. 2. History of atrial fibrillation, typically on sotalol 80 mg b.i.d. as well as Xarelto. 3. Mild hypercalcemia secondary to the calcium infusion. 4. History of hypertension. 5. Nocturnal hypoxemia with pending sleep study, likely obstructive sleep apnea. 6. History of myocardial infarction. PLAN: 1. Monitor off the calcium infusion. 2. Discontinue Nails catheter. 3. If she is eating well, discontinue lactated Ringer's. 4. Continue to hold sotalol. 5. Replete magnesium and follow up sodium tomorrow. 6. Continue MiraLax p.r.n. 7. Continue Xarelto. D/W Dr. Franco. stable for transfer. Consults & Procedures Consultants: Cardiology Procedures: Femoral CVL Data Medications: Current Inpatient Medications Medications (Trade) Dose Ordered Sig/Aicha Route Start Time Stop Time Status Last Admin Dose Admin Albuterol Sulfate (Ventolin 0.083% 2.5MG/3ML Neb) 2.5 mg BID PRN INH 09/25/16 19:45 10/25/16 19:44 Albuterol (Ventolin Hfa Inhaler) 2 puffs QID PRN INH 09/25/16 19:45 10/25/16 19:44 Multivitamins (Multivitamin Tab) 1 tab QAM PO 09/26/16 09:00 10/26/16 08:59 09/27/16 08:30 1 TAB Nitroglycerin (Nitrostat Tab) 0.4 mg UD PRN UT 09/25/16 19:45 10/25/16 19:44 Oxybutynin Chloride (Ditropan Tab) 5 mg DAILY PO 09/26/16 09:00 10/26/16 08:59 09/27/16 08:30 5 MG Polyethylene (Miralax Powder Packet) 17 gm DAILY PRN PO 09/25/16 19:45 10/25/16 19:44 Rivaroxaban (Xarelto Tab) 20 mg QPM PO 09/25/16 21:00 10/25/16 20:59 09/26/16 21:11 20 MG Pantoprazole Sodium (Protonix Tab) 40 mg QAM PO 09/26/16 09:00 10/26/16 08:59 09/27/16 08:30 40 MG Fluticasone Propionate (Flonase Nasal Dracut) 1 sprays BID THEODORA 09/26/16 21:00 10/26/16 20:59 09/27/16 08:30 1 SPRAYS Acetaminophen (Tylenol Tab) 650 mg Q6H PRN PO 09/26/16 21:15 10/26/16 21:14 09/26/16 21:13 650 MG Magnesium Oxide 400 mg 400 mg BID PO 09/27/16 09:00 10/27/16 08:59 09/27/16 09:30 400 MG Magnesium Sulfate/ Prmx (Magnesium Sulfate/Premixed D5W) 100 ml @ 100 mls/hr NOW STAT IV 09/27/16 09:03 09/27/16 10:02 09/27/16 09:40 100 MLS/HR Docusate Sodium (coLACE CAP) 100 mg BID PRN PO 09/27/16 09:00 10/27/16 08:59 Sotalol HCl (Betapace Tab) 80 mg BID PO 09/27/16 21:00 10/27/16 20:59 I & O: 24-Hour Column 09/27/16 08:00 Intake Total 3082 ml Output Total 3900 ml Balance -818 ml Vital Signs: Date Time Temp Pulse Resp B/P Pulse Ox O2 Delivery O2 Flow Rate FiO2 09/27/16 08:26 36.7 61 19 142/70 96 Room Air 09/27/16 08:00 Room Air 2.0 09/27/16 06:04 36.8 57 15 116/56 98 Room Air 09/27/16 04:20 97 Room Air 09/27/16 04:01 36.8 61 14 136/67 97 Room Air 09/27/16 03:01 54 16 111/61 95 Room Air 09/27/16 02:01 70 16 123/58 94 Room Air 09/27/16 01:01 56 16 114/52 96 Room Air 09/27/16 00:25 97 Room Air 09/27/16 00:02 61 15 122/69 99 Room Air 09/26/16 23:01 60 17 124/58 96 Room Air 09/26/16 22:01 81 17 143/100 92 Room Air 09/26/16 21:01 66 18 127/78 92 Room Air 09/26/16 20:11 97 Room Air 09/26/16 20:01 36.8 74 19 137/82 93 Room Air 09/26/16 19:01 69 15 130/63 93 Room Air 09/26/16 18:01 67 15 121/66 94 Room Air 09/26/16 17:31 66 16 135/64 94 Room Air 09/26/16 17:01 74 17 133/72 93 Room Air 09/26/16 16:00 Room Air 09/26/16 16:00 36.9 61 16 128/63 97 Nasal Cannula 2.5 09/26/16 14:01 67 16 127/63 96 Room Air 09/26/16 12:01 36.6 67 25 133/76 94 Room Air 09/26/16 12:00 Room Air 09/26/16 11:48 69 17 124/79 93 Room Air 09/26/16 11:31 64 13 88/75 97 Nasal Cannula 2.0 09/26/16 11:01 58 19 121/79 95 Nasal Cannula 2.0 09/26/16 10:00 57 16 112/66 97 Nasal Cannula 2.0 Laboratory Results: Last 24 Hours Test 09/26/16 11:23 09/26/16 11:25 09/26/16 14:47 09/27/16 05:28 Bedside Glucose 100 mg/dl Calcium Level 10.6 mg/dl 9.2 mg/dl 8.1 mg/dl Sodium Level 142 mmol/L 144 mmol/L Potassium Level 4.1 mmol/L 3.8 mmol/L Chloride Level 106 mmol/L 107 mmol/L Carbon Dioxide Level 30 mmol/L 31 mmol/L Anion Gap 6.0 mmol/L 6.0 mmol/L Blood Urea Nitrogen 11 mg/dl 13 mg/dl Creatinine 0.86 mg/dl 0.66 mg/dl Est Creatinine Clear Calc Drug Dose 75.7 ml/min 98.6 ml/min Estimated GFR () 85.7 112.1 Estimated GFR (Non- 73.9 96.7 BUN/Creatinine Ratio 12.4 19.2 Random Glucose 116 mg/dl 98 mg/dl White Blood Count 7.56 K/uL Red Blood Count 4.23 M/uL Hemoglobin 11.4 g/dL Hematocrit 35.9 % Mean Corpuscular Volume 84.9 fL Mean Corpuscular Hemoglobin 27.0 pg Mean Corpuscular Hemoglobin Concent 31.8 g/dl RDW Standard Deviation 42.3 fL RDW Coefficient of Variation 13.7 % Platelet Count 257 K/uL Mean Platelet Volume 10.2 fL Magnesium Level 1.7 mg/dl
[2016-09-27] MEDS: RIVAROXABAN 10 MG TAB PO SCH (21:50)
[2016-09-27] MEDS: SOTALOL HCL 80 MG TAB PO SCH (21:50)
[2016-09-28 03:29] VITALS: BP 124/76; PULSE 62; TEMP 36.8; O2SAT 96
[2016-09-28] MEDS: ACETAMINOPHEN 325 MG TAB PO PRN (04:29)
[2016-09-28 08:08] VITALS: BP 143/82; PULSE 68; TEMP 36.8; O2SAT 95
[2016-09-28] MEDS: MAGNESIUM OXIDE 400 MG TAB PO SCH (08:09)
[2016-09-28] MEDS: FLUTICASONE PROPIONATE NA SPR 16 GM BTL NAE SCH (08:09)
[2016-09-28] MEDS: PANTOprazole SOD 40 MG TAB PO SCH (08:10)
[2016-09-28] MEDS: MULTIVITAMIN TAB PO SCH (08:10)
[2016-09-28] MEDS: OXYBUTYNIN CHLORIDE 5 MG TAB PO SCH (08:10)
[2016-09-28] MEDS: SOTALOL HCL 80 MG TAB PO SCH (08:10)
[2016-09-28] MEDS ORDERED: NURSING VERBAL MED ORDER ONE (11:00)
--- NOTE | 2016-09-28 11:28 | Cardiology Follow-Up ---
Subjective Subjective Date of Service: September 28, 2016. Pt evaluation today including: conversation w/ patient, physical exam, chart review, lab review, review of studies, review of inpatient medication list Additional Details: Pt seen and examined, states that she feels a little nauseated today, also tired from inability to sleep. Denies cp, sob, palpitations, lightheadedness or dizziness. Tele reviewed: sinus rhythm without arrhythmia or significant ectopy. EKG: sinus rhythm, QTc stable at 412ms. Problem List Medical Problems: (1) Acute electrocardiogram changes Status: Acute (2) Atrial fibrillation with RVR Status: Acute (3) Bradycardia with 41-50 beats per minute Status: Acute (4) Calcium channel kam overdose Status: Acute (5) Chest pain Status: Acute (6) Hypotension due to medication Status: Acute (7) Junctional escape rhythm Status: Acute Review of Systems Constitutional: No chills, No fatigue, No fever, No problem reported, No sweats , No weakness, No weight loss Eyes: No diplopia, No discharge, No eye pain, No redness, No worsening of vision ENT: No dental problems, No hearing loss, No nasal symptoms, No sore throat, No tinnitus, No trouble swallowing, No unusual epistaxis Respiratory: No cough, No dyspnea at rest, No dyspnea on exertion, No hemoptysis, No shortness of breath, No sputum, No wheezing Cardiac: No PND, No chest pain, No claudication, No edema, No orthopnea, No palpitations Abdomen: + constipation, No diarrhea, No nausea, No pain, No vomiting Musculoskeletal: No calf pain, No joint pain, No muscle pain, No swelling Female : No abnormal vaginal bleeding, No dysuria, No hematuria, No incontinence, No urinary frequency, No vaginal discharge Neurologic: No balance problems, No memory loss, No numbness/tingling, No paralysis, No vertigo, No weakness Psychiatric: No anhedonism, No anxiety, No depression symptoms, No insomnia, No substance abuse Heme: No abnormal bleeding/bruising, No clotting problems, No night sweats, No swollen lymph nodes Endo: No excessive thirst, No excessive urination, No fatigue Skin: No bleeding, No color change, No itch, No new/changing skin lesions, No rash Objective Vital Signs Last Vital Signs Documentation Date Time Temp Pulse Resp B/P Pulse Ox O2 Delivery O2 Flow Rate FiO2 09/28/16 08:08 36.8 68 18 143/82 95 09/28/16 08:00 Room Air 09/27/16 08:00 2.0 Physical Exam: General Appearance: WD/WN, no apparent distress, + obese Eyes: bilateral eyes EOMI, bilateral eyes PERRL, bilateral eyes normal inspection ENT: normal ENT inspection, hearing grossly normal, pharynx normal Neck: supple, no adenopathy, thyroid normal, no JVD, no carotid bruits, trachea midline Respiratory/Chest: chest non-tender, lungs clear, normal breath sounds, no respiratory distress, no accessory muscle use Cardiovascular: regular rate, rhythm, no edema, no gallop, no JVD, no murmur Abdomen: normal bowel sounds, non tender, soft, no organomegaly, no pulsatile mass Extremities: normal range of motion, non-tender, normal inspection, no pedal edema, no calf tenderness, normal capillary refill, pelvis stable Neurologic/Psychiatric: bracelet former II-XII nml as tested, no motor/sensory deficits, alert, normal mood/affect, oriented x 3 Skin: normal color, warm/dry, no rash Lymphatic: no adenopathy Assessment and Plan 1. calcium channel kam overdose resolved gtt turned off on 09/26 no significant bradycardia or hypotension now pt once again counseled on not taking medications above what is recommended by her physicians, she states that she will comply repeat EKG to follow QT 2. PAF during this patient spontaneously converted sotalol initially held secondary to concern for arrhythmias restarted QTc remained stable after 3 doses do not expect an issue since patient tolerating medication previously cont Xarelto ok to d/c to home on Xarelto and sotalol no cardizem, patient instructed to dispose of left over medications for PVI as outpatient ok to d/c to home from cardiac standpoint. Continued [facility] stay due to: home environment unsafe for pt Discharge planning: home
[2016-09-28] MEDS ORDERED: ONDANSETRON 4MG OD TAB PO PRN (11:45)
[2016-09-28] MEDS ORDERED: ONDANSETRON 4MG OD TAB SL PRN (11:45)
[2016-09-28] MEDS ORDERED: ONDANSETRON 4MG OD TAB SL ONE (11:45)
[2016-09-28] MEDS ORDERED: ONDANSETRON 4MG OD TAB PO ONE (11:45)
[2016-09-28 12:12] VITALS: BP 135/66; PULSE 86; TEMP 36.5; O2SAT 98
[2016-09-28] MEDS ORDERED: SOTA80TA PO (12:55)
--- NOTE | 2016-09-28 12:59 | Discharge Instructions ---
Discharge Instructions Date of Service September 28, 2016. Admission calcium channel kam overdose Discharge Discharge Diagnosis / Problem: calcium channel kam overdose Discharge Goals Goal(s): Decrease discomfort, Improve function, Increase independence, Improve disease control, Improve nutritional status, Learn about illness, Diagnostic testing, Therapeutic intervention, Prevent Disease Progression Activity Recommendations Activity Limitations: resume your previous activity Exercise/Sports Limitations: as tolerated Shower/Bathe: no limitations Driving or Machine Use: no limitations . Instructions / Follow-Up Instructions / Follow-Up you have calcium channel kam overdose you should not taking medications above what is not recommended by her physicians, she states that she will comply you have PAF during this patient spontaneously converted , sotalol restarted continue Xarelto - you need to follow up with your primary care physician in 1 week, - take medication as instructed, never overdose or any misuse, or take with alcohol, because misuse of medicine may cause organ damage or , call your primary care physician if have questions of medicaitons. - call your primary care physician OR go to local emergency room if has any fever/chill, chest pain, shortness of breathing, nausea/vomiting/abdominal pain , facial droop/slurry speech/local weakness, or if has any questions. - fall precaution - diet as instructed - you need to follow up with your subspecialist, scaling machine operator - you should understand that it is important to follow up the above instruction , and "not following the above instruction" may cause delayed or missed care of your medical conditions which may cause permanent organ damage and even . Current Hospital Diet Patient's current hospital diet: AHA Diet (Heart Healthy) Discharge Diet Recommended Diet: AHA Diet (Heart Healthy) Pending Studies Studies pending at discharge: no Laboratory Results Meds Administered (Past 24Hrs) Medications (Trade) Dose Ordered Sig/Aicha Route Start Time Stop Time Status Last Admin Dose Admin Fluticasone Propionate (Flonase Nasal [place]) 1 sprays BID THEODORA 09/26/16 21:00 10/26/16 20:59 09/28/16 08:09 1 SPRAYS Acetaminophen (Tylenol Tab) 650 mg Q6H PRN PO 09/26/16 21:15 10/26/16 21:14 09/28/16 04:29 650 MG Magnesium Oxide 400 mg 400 mg BID PO 09/27/16 09:00 10/27/16 08:59 09/28/16 08:09 400 MG Magnesium Sulfate/ Prmx (Magnesium Sulfate/Premixed D5W) 100 ml @ 100 mls/hr NOW STAT IV 09/27/16 09:03 09/27/16 10:02 DC 09/27/16 09:40 100 MLS/HR Docusate Sodium (coLACE CAP) 100 mg NOW ONCE PO 09/27/16 09:00 09/27/16 09:04 DC 09/27/16 09:30 100 MG Sotalol HCl (Betapace Tab) 80 mg BID PO 09/27/16 21:00 10/27/16 20:59 09/28/16 08:10 80 MG Sotalol HCl (Betapace Tab) 80 mg 0930 ONCE PO 09/27/16 09:30 09/27/16 09:32 DC 09/27/16 10:14 80 MG Ondansetron HCl (Zofran Odt) 4 mg 1145 ONCE SL 09/28/16 11:45 09/28/16 11:46 DC 09/28/16 12:02 4 MG Medical Emergencies . Who to Call and When: Medical Emergencies: If at any time you feel your situation is an emergency, please call 911 immediately. . Non-Emergent Contact Non-Emergency issues call your: Primary Care Provider, Shaping Machine Operator . . "Provider Documentation" section prepared by Franklin Franco. . VTE Core Measure Inpt VTE Proph given/why not?: Other Anticoagulation
[2016-09-28 15:13] VITALS: BP 135/66; PULSE 86; TEMP 36.5; O2SAT 98
--- NOTE | 2016-09-28 17:27 | Discharge Summary ---
Discharge Summary Date of Service September 28, 2016. Discharge Summary Admission Date: September 25, 2016 at 19:09 Discharge Date: September 28, 2016 Discharge Disposition: Home Principal Diagnosis: calcium channel kam overdose Problems/Secondary Diagnoses: Medicine noncompliant PAF Immunizations: Have You Had Influenza Vaccine: No History of Tetanus Vaccine?: Yes Tetanus Immunization Date: Apr 06, 2010 History of Pneumococcal: Yes Pneumococcal Date: Jan 30, 2009 History of Hepatitis B Vaccine: Yes Hepatitis Immunization Date: September 28, 2016 Procedures: No Consultations: Director Of Market Analysis Medication Reconciliation Continued Medications: Albuterol Soln (Ventolin Soln) 0.083 % Neb 1 VIAL INH BID PRN for Shortness of Breath Albuterol Sulfate (Proair Hfa) 108 Mcg/ Aer 2 PUFFS INH QID PRN for Shortness of Breath Ferrous Sulfate (Kp Ferrous Sulfate) 325 Mg Tab 325 MG PO TID Lisinopril (Zestril) 5 Mg Tab 5 MG PO QAM, TAB Multiple Vitamin (Multivitamin) 1 Tab Tab 1 TAB PO QAM, TAB Nitroglycerin (Nitrostat) 0.4 Mg Tab 0.4 MG UT UD PRN for Chest Pain PLACE ONE TABLET UNDER THE TONGUE EVERY 5 MINUTES FOR UP TO 3 DOSES IF NEEDED FOR CHEST PAIN. Omeprazole (Prilosec) 40 Mg Cap 40 MG PO QAM Oxybutynin Chloride (Ditropan) 5 Mg Tab 5 MG PO DAILY AT LUNCH, TAB Oxygen (Oxygen) Gas 3 LITERS NA HS Polyethylene (Miralax) 17 Gm Pow 1 DOSE PO DAILY PRN for Constipation Rivaroxaban (Xarelto) 20 Mg Tab 20 MG PO QPM, TAB Sotalol Hcl (Sotalol Hcl) 80 Mg Tab 80 MG PO BID for 30 Days, #60 TAB (This prescription has been renewed) Discontinued Medications: Diltiazem HCl Coated Beads (Diltiazem HCl ER) 240 Mg Tab 240 MG PO DAILY PRN for USES IF IN A-FIB Discharge Exam Doing well, no complaining, no chest pain no palpitation no dizziness Review of Systems: Constitutional: No chills, No fatigue, No fever, No problem reported, No sweats, No weakness, No weight loss Eyes: No diplopia, No discharge, No eye pain, No problem reported, No redness, No worsening of vision ENT: No dental problems, No hearing loss, No nasal symptoms, No problem reported, No sore throat, No tinnitus, No trouble swallowing, No unusual epistaxis Respiratory: No cough, No dyspnea at rest, No dyspnea on exertion, No hemoptysis, No problem reported, No shortness of breath, No sputum, No wheezing Cardiovascular: No PND, No chest pain, No claudication, No edema, No orthopnea, No palpitations, No problem reported Abdomen: No GI bleeding, No constipation, No diarrhea, No nausea, No pain, No problem reported, No vomiting Musculoskeletal: No calf pain, No joint pain, No muscle pain, No problem reported, No swelling Genitourinary - Female: No dysmenorrhea, No dysuria, No hematuria, No menorrhagia, No metrorrhagia, No , No problem reported, No rash, No urinary frequency, No urinary incontinence, No urinary retention, No urinary urgency, No vaginal bleeding, No vaginal discharge, No vaginal itching, No vulvodynia Neurologic: No balance problems, No memory loss, No numbness/tingling, No paralysis, No problem reported, No vertigo, No weakness Psychiatric: No anhedonism, No anxiety, No depression symptoms, No insomnia , No problem reported, No substance abuse Hematologic / Lymphatic: No abnormal bleeding/bruising, No clotting problems , No night sweats, No problem reported, No swollen lymph nodes Integumentary: No bleeding, No color change, No itch, No new/changing skin lesions, No problem reported, No rash Physical Exam: General Appearance: WD/WN, no apparent distress Eyes: normal inspection, PERRL ENT: normal ENT inspection, hearing grossly normal, TMs normal Neck: supple, no adenopathy Respiratory/Chest: chest non-tender, lungs clear Cardiovascular: regular rate, rhythm, no edema, no gallop Abdomen / GI: soft, no organomegaly, no pulsatile mass Extremities: normal inspection, no calf tenderness, normal capillary refill , no pedal edema, normal range of motion Neurologic/Psychiatric: hearing instrument specialist II-XII nml as tested, no motor/sensory deficits , alert, normal mood/affect, normal reflexes Skin: normal color, warm/dry Hospital Course 61 yo admitted on 09/25/2016 because of Acute calcium-channel kam overdose, stable Calcium channel kam toxicity with bradycardia and hypotension, unintentional , stable resolved past medical history of Hector. had been in ICU was on calcium gluconate and glucagon and presently on a 10% calcium gluconate infusion. 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 cardiology on case, Paroxysmal atrial fibrillation, currently in normal sinus rhythm on chronic Xarelto and sotalol, again has counseled on the dangers of using medications in ways that it has not been prescribed and she states that she understands and will never do that again. 2-D echocardiogram was done, per report in below * Normal LV chamber size with borderline concentric LVH. * Normal LV systolic function, EF 55-60%. * No segmental left ventricular wall motion abnormalities are noted. * Normal diastolic function. * No significant valvular pathology. * Mild left atrial enlargement. per materials branch chief , they will look to set her up for pulmonary vein isolation and have the LINQ removed given these findings. materials branch chief and coal hauler ok to be off ICU, and materials branch chief has restart Sotalol, patient tolerated well for 3 doses, no arrhythmia, no prolonged QT , cardiology cleared her to be discharged Hypotension and bradycardia secondary to Calcium channel kam overdose, resolved, Mag replaced History of hypertension. Chronic back pain. History of myocardial infarction the above condition is stable constipation d/w pt GI , DVT px ordered Instructions / Follow-Up you have calcium channel kam overdose you should not taking medications above what is not recommended by her physicians, she states that she will comply you have PAF during this patient spontaneously converted , sotalol restarted continue Xarelto - you need to follow up with your primary care physician in 1 week, - take medication as instructed, never overdose or any misuse, or take with alcohol, because misuse of medicine may cause organ damage or , call your primary care physician if have questions of medicaitons. - call your primary care physician OR go to local emergency room if has any fever/chill, chest pain, shortness of breathing, nausea/vomiting/abdominal pain , facial droop/slurry speech/local weakness, or if has any questions. - fall precaution - diet as instructed - you need to follow up with your subspecialist, materials branch chief - you should understand that it is important to follow up the above instruction , and "not following the above instruction" may cause delayed or missed care of your medical conditions which may cause permanent organ damage and even . Total Time Spent: Less than 30 minutes This includes examination of the patient, discharge planning, medication reconciliation, and communication with other providers. Discharge Instructions Please refer to the electronic Patient Visit Report (Discharge Instructions) for additional information. Additional Copies To Gilberto Bolanos D.O.; Lorraine Yo PA-C
== END 2016-09-28 15:24 | disposition home or self-care (01) | DRG 918 ==
LOC: ENRESERVDT → ENRESERVTM → C.EDB 17:13 → C.MSICU 19:09 → C.2T 09-27 14:31
PROVIDERS: ADMIT Family Medicine; ATTEND Hospitalist
PROC: 06HN33Z Insertion of Infusion Device into Left Femoral Vein, Percutaneous Approach (ICD-10-PCS; principal; 2016-09-25)
DX: T46.1X1A Poisoning by calcium-channel blockers, accidental (unintentional), initial encounter (principal); I95.2 Hypotension due to drugs; I48.0 Paroxysmal atrial fibrillation; I25.10 Atherosclerotic heart disease of native coronary artery without angina pectoris; I25.2 Old myocardial infarction; K21.9 Gastro-esophageal reflux disease without esophagitis; I10 Essential (primary) hypertension; Z79.01 Long term (current) use of anticoagulants; Z79.899 Other long term (current) drug therapy; G47.33 Obstructive sleep apnea (adult) (pediatric); E83.52 Hypercalcemia

== ENCOUNTER → 2016-10-06 | Outpatient (CLI) | payer OTHER ==
[~2016-10-06] MED LIST changes: -BTP80 PO; -DILT1TAB50 PO; +SOTA80TA PO
--- NOTE | 2016-10-07 07:55 | SPLIT NIGHT TECHNICIAN REPORT ---
[facility] Split Night Polysomnogram - Poured Pipe Maker Report Study date: 10/06/2016 Referring Physician: Lorraine Yo PA-C Name: WILSON PAYAN Poured Pipe Maker: Kristen Haynes, PSGT. Date of : 1955 Height: 61 years, Height 5' 2" Sex: Female Weight: 209 lbs Age: 61 BMI: Medications: 38.22 [place] 3, Iron, Miralax, Prinivil 5 mg, Xarelto 20 mg, Prilisec 40 mg, Nitrostat 0.4 mg, Zofran 4 mg, Ventolin HFA, Multi vit, Flonase, Aleve Patient History 61 yr. old present tonight for split night study. Pt. states that she goes into a fib often, she has htn nocturnal hypoxemia, nocturia, snoring, obesity, and frequent arousals. Daytime sleepiness. Pt. states that she uses 2.5 liters of oxygen while sleeping and during naps.Pt. sleeps with 7 cats and one dog. This study will be done on room air.Ess= 16. Parameters Monitored NPSG: E1-M2, E2-M1, Fp1-M2, Fp2-M1, F3-M2, F4-M2, F4-M1, C3-M2, C4-M2, C4-M1, O1-M2, O2-M2, O2-M1, T3-M2, T4-M1, P3-M2, P4-M1, CHIN1, CHIN2, HR, EKG, Legs, PFLOW, SNOR, FLOW, CFLOW, Tidal Volume, THOR, ABDO, SpO2, PLTH, CPRESS, ETCO2 Wave, ETCO2, pH SLEEP SUMMARY DATA DIAGNOSTIC TREATMENT Lights Out: 10:49:01 PM NONE Lights On: 2:16:01 AM 5:31:31 AM Total Recording Time (TRT): 206.8 min. 182.7 min. Total Sleep Time (TST): 163.5 min. 142.0 min. NREM Time: 163.5 min. 121.5 min. REM Time: 0.0 min. 20.5 min. Sleep Period Time (SPT): 201.0 min. 159.5 min. Sleep Efficiency (SE): 79 % 78 % Sleep Latency: 5.0 min. NONE min. Arousal Index: 26.8 7.6 PAP Treatment Levels: 5, 7, 9, 11, 12, 13 * Optimal Pressure(s) SLEEP STAGING DATA DIAGNOSTIC TREATMENT Duration (min) TST % Duration (min) TST % Stage Wake: 43.3 min. -- 40.2 min. -- WASO: 38.5 min. -- 17.5 min. -- NREM: 163.5 min. 100 % 121.5 min. 86 % Stage N1: 10.0 min. 6 % 9.0 min. 6 % Stage N2: 146.0 min. 89 % 105.0 min. 74 % Stage N3: 7.5 min. 5 % 7.5 min. 5 % REM: 0.0 min. 0 % 20.5 min. 14 % POSITIONAL DATA Event Count Index Event Count Index Supine: 3 72.0 23 23.8 Supine NREM: 3 72.0 23 36.7 Supine REM: N/A N/A 0 0 Non-Supine: 181 25.7 4 2.9 Non-Supine NREM: 181 25.7 4 2.9 Non-Supine REM: N/A N/A N/A N/A AROUSAL SUMMARY DATA: Event Count Index Event Count Index Apnea Arousals: 4 8.1 0 1.7 Hypopnea Arousals: 4 1.5 0 0.0 Snore Arousals: 29 10.6 0 0.0 PLM Arousals: 6 2.2 0 0.0 Non-Specific Arousals: 17 6.2 18 7.6 Total Arousals: 73 26.8 18 7.6 MYOCLONUS (PLM) Event Count Index Event Count Index PLM: 73 26.8 0 0.0 PLM AROUSAL: 6 2.2 0 0.0 PLM W/O AROUSAL 73 26.8 0 0.0 PLM W/RESP EVENT 11 0.0 0 0.0 MYOCLONUS (PLM) Event Count Index Event Count Index LM: 6 18.0 1 0.4 LM AROUSAL: 6 2.2 0 0.0 LM W/O AROUSAL LM W/RESP EVENT LM NON SPECIFIC 91 33.4 1 0.4 HEART RATE DATA DIAGNOSTIC TREATMENT Sleep (bpm): 66 65 REM (bpm): N/A 92 NREM (bpm): 90 91 Tachycardia Count: 0 0 Tachycardia Duration: 0.00 0 Bradycardia Count: 0 0 Bradycardia Duration: 0.00 0 DIAGNOSTIC PORTION TREATMENT PORTION RESPIRATORY DATA Event Count Index Event Count Index AHI: -- 26.4 -- 11.4 RDI: -- 67.5 -- 11 Obstructive Apnea: 4 1.5 1 0.4 Central Apnea: 6 2.2 3 1.3 Mixed Apnea: 12 4.4 0 0.0 Hypopnea: 50 18.3 23 9.7 RERA: 113 41.5 0 0.0 Total Apneas: 22 8.1 4 1.7 RESPIRATORY DATA REM NREM SLEEP REM NREM SLEEP Supine Position: Obstructive Apneas: N/A 1 1 0 0 0 Central Apneas: N/A 1 1 0 3 3 Mixed Apneas: N/A 0 0 0 0 0 Hypopneas: N/A 1 1 0 20 20 RERA N/A 0 0 0 0 0 Total Supine Events: N/A 3 3 0 23 23 Supine AHI: N/A 72.0 72.0 0 36.7 23.8 Supine RDI: N/A 72.0 72.0 0.0 36.7 23.8 REM NREM SLEEP REM NREM SLEEP Non-Supine Position: Obstructive Apneas: N/A 3 3 N/A 1 1 Central Apneas: N/A 5 5 N/A 0 0 Mixed Apneas: N/A 12 12 N/A 0 0 Hypopneas: N/A 49 49 N/A 3 3 RERA N/A 113 113 N/A 0 0 Total Supine Events: N/A 181 181 N/A 4 4 Supine AHI: N/A 25.7 25.7 N/A 2.9 2.9 Supine RDI: N/A 67.5 67.5 N/A 2.9 2.9 OXYGEN DESTAURATION DATA: Event Count Index Event Count Index REM Desaturations: N/A N/A 0 0.0 NREM Desaturations: 52 19.1 31 15.3 SNORE DATA DIAGNOSTIC TREATMENT Snore Time: 19.4 2:52:01 AM Snore TST%: 7 1 Snore Arousal Count: 29 0 Snore Arousal Index: 10.6 0.0 Desaturation Event Summary: Minimum %SpO2 Event Count Mean/Min/Max Duration(sec.) Desaturation Index % Time In Bed > 90 75 17.1 / 8.0 / 57.3 18.4 63.2 86 - 90 53 15.2 / 8.0 / 41.5 22.3 36.8 81 - 85 0 N/A 0.0 0.1 76 - 80 0 N/A 0.0 0.0 71 - 75 0 N/A 0.0 0.0 66 - 70 0 N/A 0.0 0.0 61 - 65 0 N/A 0.0 0.0 56 - 60 0 N/A 0.0 0.0 51 - 55 0 N/A 0.0 0.0 < 50 0 N/A 0.0 0.0 OXYGEN SATURATION DATA DIAGNOSTIC TREATMENT SpO2 Mean Sleep: 90 % 91 % SpO2 Mean REM: N/A % 92 % SpO2 Mean NREM: 90 % 91 % SpO2 Minimum Sleep: 86 % 86 % SpO2 Minimum REM: N/A % 90 % SpO2 Minimum NREM: 86 % 86 % Time Below 90% (TST): 51.9 26.5 Time Below 88% (TST): 2.0 10.1 Total REM NREM Awake <50% 0.0 min. 0.0 min. 0.0 min. 0.0 min. 51 - 60% 0.0 min. 0.0 min. 0.0 min. 0.0 min. 61 - 70% 0.0 min. 0.0 min. 0.0 min. 0.0 min. 71 - 80% 0.0 min. 0.0 min. 0.0 min. 0.0 min. 81 - 90% 142.6 min. 0.9 min. 125.8 min. 15.9 min. 91 - 100% 244.7 min. 19.6 min. 159.2 min. 66.0 min. Average 91 92 91 92 Minimum SpO2 85 90 86 85 Desaturation Event Index 12.8 0.0 17.5 0.0 # Desat. Events below 89% 63 N/A 63 0 Time(%) with Saturation below 89% 10.6 0.0 9.5 1.0 Time(min.) with Saturation below 89% 40.9 0.0 36.9 4.0 Recording Poured Pipe Maker Comments: Split -Night: MS. Payan slept in the right, left, and supine positions. No cardiac arrhythmia, PLM's noted. No bruxism noted. Snoring was noted and scored as a 4 on a scale of 1 through 5. (0=no snoring, 5=snoring loud enough to be heard through a closed door or down the ball way) At 2:15 am, MS. Payan has met specific Split-Night criteria during the diagnostic portion of this study. CPAP was initiated at +5 CMH2O and up-titrated to an optimal level of +13 CMH2O, which nearly eliminated all respiratory events and snoring. A medium Res Med Air Fit F10, was used during titration Ms. Payan awoke to use the restroom one time during the night. Ms. Payan stated, I did not sleep as well as I do when I am in my own bed, I can't get comfortable. The final report will be interpreted and signed by a sleep physician. The completed physician report will then be placed in the patient medical record. Pt. was restless tossing and turning often, she did meet split night qualification's at 2:15 am, C-pap was started at that time she continued to be somewhat restless. She stated when I was in the room that she couldn't find a comfortable position. Therapy Event: Therapy (cm H20) 0 5 7 9 11 12 13 Total Time at Pressure (min.) 206.8 72.5 9.3 11.9 11.1 49.0 28.5 TST at Pressure (min.) 163.5 45.3 9.3 9.4 11.1 40.5 26.5 # Periods 1 1 1 1 1 1 1 Sleep Onset (min.) 5.0 23.2 0.0 0.0 0.0 0.0 0.0 REM Onset (min.) N/A N/A N/A N/A N/A 11.9 N/A Sleep Efficiency % 79 62 100 79 100 82 93 Wakefulness (%) 20.9 37.5 0.0 21.0 0.0 17.4 7.0 Wakefulness (min.) 43.3 27.2 0.0 2.5 0.0 8.5 2.0 NREM 1 (%) 4.8 7.6 0.0 4.2 0.0 4.1 3.5 NREM 1 (min.) 10.0 5.5 0.0 0.5 0.0 2.0 1.0 NREM 2 (%) 70.6 54.9 50.7 50.1 100.0 36.7 89.5 NREM 2 (min.) 146.0 39.8 4.7 6.0 11.1 18.0 25.5 NREM 3 (%) 3.6 0.0 49.3 24.7 0.0 0.0 0.0 NREM 3 (min.) 7.5 0.0 4.6 2.9 0.0 0.0 0.0 REM (%) 0.0 0.0 0.0 0.0 0.0 41.9 0.0 REM (min.) 0.0 0.0 0.0 0.0 0.0 20.5 0.0 # Arousals 73 3 0 0 1 13 1 Arousal Index 26.8 4.0 0.0 0.0 5.4 19.3 2.3 # Snore 744 11 0 0 0 7 0 Snore Index 273.0 14.6 0.0 0.0 0.0 10.4 0.0 AHI 26.4 17.2 38.9 19.2 16.2 3.0 0.0 AHI Supine 72.0 38.4 38.9 33.1 N/A 2.6 N/A AHI Non-Supine 25.7 0.0 N/A 0.0 16.2 3.5 0.0 NREM AHI 26.4 17.2 38.9 19.2 16.2 6.0 0.0 REM AHI N/A N/A N/A N/A N/A 0.0 N/A RDI 67.5 17.2 38.9 19.2 16.2 3.0 0.0 # Obstructive 4 0 0 0 0 1 0 # Central Ap 6 0 0 3 0 0 0 # Mixed 12 0 0 0 0 0 0 # Hypopneas 50 13 6 0 3 1 0 RERAS 113 0 0 0 0 0 0 Total Respiratory Events 184 13 6 3 3 2 0 Time Below SpO2 89.00% (min.) 18.0 10.5 6.0 2.3 0.0 0.0 0.0 Mean NREM SpO2 (%) 90 91 88 90 91 92 93 Mean REM SpO2 (%) N/A N/A N/A N/A N/A 92 N/A Mean Sleep SpO2 (%) 90 91 88 90 91 92 93 Min NREM SpO2 (%) 86 86 86 87 89 90 91 Min REM SpO2 (%) N/A N/A N/A N/A N/A 90 N/A Position Supine (min.) 2.5 20.3 9.3 5.4 0.0 23.1 0.0 Position Non-supine (min.) 161.0 25.0 0.0 4.0 11.1 17.3 26.5 LM Index Sleep 44.8 0.0 0.0 0.0 0.0 1.5 0.0 LM Index NREM 44.8 0.0 0.0 0.0 0.0 3.0 0.0 LM Index REM N/A N/A N/A N/A N/A 0.0 N/A Mean Heart Rate (bpm) 66 67 63 62 61 66 62 Min Heart Rate (bpm) 56 59 60 59 58 59 60
--- NOTE | 2016-10-17 09:27 | POLYSOMNOGRAPH REPORT ---
REFERRING PERSON: Lorraine Yo PA-C. INTERPRETING PHYSICIAN. Dr. Blaine Price. HEATING AND BLENDING SUPERVISOR: Esperanza Haynes. Ms. Ortez is a 61-year-old female who presents for a split night sleep study. She has a history of atrial fibrillation, hypertension, nocturnal hypoxemia and nocturia, snoring, obesity and frequent arousals from sleep. She also complains of excessive daytime sleepiness. She currently uses 2.5 liters of oxygen at bedtime and with nap. She sleeps with 7 cats and 1 dog in her bed. [place] sleepiness scale score on the evening of this study is 16. BMI is 38.22. This patient did qualify for a split night sleep study. Ms. Ortez was observed for 163.5 minutes of sleep time. During that time, she had 6% N1 sleep, 89% N2 sleep, and 5% N3 sleep. There were 73 arousals from sleep. 29 of these arousals were due to snoring, 17 were nonspecific, 6 were due to periodic limb movements of sleep and 8 were due to respiratory event. Mean saturation during observation was 90%. Desaturations to 86% were noted. There were 73 periodic limb movements noted during observation, 6 of which resulted in arousals. There were 4 obstructive apneas, 6 central apnea, 12 mixed apnea and 50 hypopnea noted on this test. There were also 113 RERAs. Apnea-hypopnea index was 26.4 with an RDI of 67.5. Therefore, DICTATION ENDS HERE
--- NOTE | 2016-10-18 07:35 | POLYSOMNOGRAPH REPORT ---
ADDENDUM At 2:15 a.m., Ms. Ortez met split night criteria and was started on CPAP therapy. Over the remaining part of the night, she was titrated from a CPAP pressure of 5 to a CPAP pressure of 13. Increasing pressures were needed to prevent apneas, hypopneas and arousals. She was observed on a pressure of 12 for 40.5 minutes of time. 20.5 of those minutes was spent in supine REM sleep. AHI and RDI on this pressure were both 3. Saturations were less than 89 for 0.0 minutes of recorded time. IMPRESSION AND PLAN: Successful split night sleep study in this patient with moderately severe AHI and severe RDI. She also had nocturnal hypoxemia which resolves with CPAP therapy. I would recommend that this patient be started on CPAP at 12. A download from her machine can be reviewed in 1 month, both to check compliance as well as AHI and further pressure adjustments can occur at that time. THAO
== END | disposition home or self-care (01) ==
LOC: C.NEUR 20:00
PROVIDERS: ATTEND Family Medicine
DX: G47.34 Idiopathic sleep related nonobstructive alveolar hypoventilation (principal); G47.10 Hypersomnia, unspecified; R06.83 Snoring; E66.9 Obesity, unspecified; I48.0 Paroxysmal atrial fibrillation

== ENCOUNTER → 2017-08-11 | Outpatient (CLI) | payer OTHER ==
--- NOTE | 2017-08-12 07:20 | DIAGNOSTIC IMAGING REPORT ---
CT OF THE RIGHT FOOT WITHOUT CONTRAST CLINICAL HISTORY: Right foot pain, numbness and swelling. Multiple right foot surgeries. Retained orthopedic hardware. COMPARISON STUDY: No previous studies for comparison. TECHNIQUE: Axial images of the right foot were obtained without IV contrast. Sagittal and coronal reconstructions were viewed. FINDINGS: Alignment of the right ankle is anatomic. Talar dome is intact. Subtalar joint is intact as is the tibiotalar joint. There is a portion of a screw within the medial navicular. There is marked joint space narrowing with osteophytosis at the articulation between the navicular and cuneiforms. Patient is status post fusion of the first, second and third tarsometatarsal joints. There is minimal surgical material within the proximal first metatarsal. It is made of plate and screws extending across the right third tarsometatarsal joint. There is fusion between the medial and intermediate cuneiforms. Fusion appears complete. There is no acute fracture. There is no CT evidence for osteomyelitis. No fluid collection is identified to suggest an abscess on this unenhanced exam. Cuboid is intact. IMPRESSION: 1. Status post right midfoot fusion with fusion of the right first, second and third tarsometatarsal joints and the medial and intermediate cuneiforms. Fusion complete. Anatomic alignment. 2. No acute fracture. 3. Screw fragment within the navicular. 4. Severe joint space narrowing with osteophytosis at the articulation between the navicular and cuneiforms. Electronically signed by: Magnus Sunshine M.D. 08/12/2017 7:19 AM Dictated Date/Time: 08/11/2017 2:42 PM
== END | disposition home or self-care (01) ==
LOC: C.CTS 14:08
PROVIDERS: ATTEND Orthopaedic Surgery Sports Medicine
DX: M79.671 Pain in right foot (principal)

== ENCOUNTER 2017-09-17 22:50 | Emergency (ER) | payer OTHER ==
[~2017-09-17] VITALS: Ht 157.5 cm; Wt 101.9 kg
[2017-09-17 22:53] VITALS: TEMP 36.7; Ht 157.5 cm; Wt 101.9 kg
[2017-09-17] MEDS ORDERED: AMPICILLIN/SULBACTAM SOD INJ 3,000 MG in SODIUM CHLORIDE 0.9% 100ML 100 ML IV STA (23:04)
[2017-09-17 23:33] LABS: BASO % 0.2 %; BASO ABS # 0.02 K/uL (0-0.2); EOS % 1.8 %; EOS ABS # 0.17 K/uL (0-0.5); HEMATOCRIT 38.1 % (37-47); HEMOGLOBIN 12.7 g/dL (12.0-16.0); IG# 0.02 K/uL (0.00-0.02); LYMPH % 33.5 %; LYMPH ABS # 3.11 K/uL (1.2-3.4); MEAN CELL VOLUME 84.7 fL (80-100); MEAN CORPUSCULAR HEMOGLOBIN 28.2 pg (25-34); MEAN CORPUSCULAR HGB CONC 33.3 g/dl (32-36); MEAN PLATELET VOLUME 10.1 fL (7.4-10.4); MONO % 9.3 %; MONO ABS # 0.86 K/uL (0.11-0.59); NEUT ABS # 5.09 K/uL (1.4-6.5); PLATELET COUNT 259 K/uL (130-400); RED CELL DISTRIBUTION WIDTH CV 12.8 % (11.5-14.5); RED CELL DISTRIBUTION WIDTH SD 39.2 fL (36.4-46.3); WHITE BLOOD COUNT 9.27 K/uL (4.8-10.8)
--- NOTE | 2017-09-17 23:34 | EMERGENCY ROOM VISIT NOTE ---
ED Visit Note First contact with patient: 22:56 I have personally evaluated and examined this patient. I agree with assessment and plan of Tiffany Kaufman PA-C. Cat bite top right hand, pain with active ROM but not with passive. Moderate swelling, minimal erythema. Denies history of easy infections nor diabetes. Tetanus will need updated. Pt states Rabies vaccinations good for cat. Given IV Unasyn with check of labs.
[2017-09-17] MEDS ORDERED: DIPHTHERIA/TETANUS/PERTUSSIS 0.5 ML SYR/VIAL IM. ONE (23:45)
[2017-09-17 23:47] LABS: CALCIUM 8.7 mg/dl (8.5-10.1); CREATININE 0.76 mg/dl (0.60-1.20); POTASSIUM 3.4 mmol/L (3.5-5.1)
[2017-09-17] MEDS ORDERED: AMOX875T PO (23:47)
[2017-09-17] MEDS ORDERED: FLUC150T PO (23:47)
[2017-09-17] MEDS ORDERED: AMOXICIL/CLAVU 875MG HOME PACK PO STA (23:48)
[2017-09-17] MEDS ORDERED: ONDANSETRON 4MG OD TAB PO STA (23:58)
--- NOTE | 2017-09-18 00:03 | EMERGENCY ROOM VISIT NOTE ---
History First contact with patient: 22:56 Chief Complaint: HAND PAIN/INJURY Stated Complaint: R HAND PAIN TINGLY NUMB History of Present Illness The patient is a [id number] 62 year old female who presents to the Emergency Room with complaints of right hand pain and paresthesias. The patient states earlier today she is putting her cat in a carrier to take it to the vet. She states the cat became scared and "went ballistic". She states that bit her right hand and scratched her arm. This occurred approximately 12: 00 today. The cat's vaccinations are up-to-date. She states initially she squeezed blood out, but denies any pus. As the day and evening has gone on, the pain and swelling seem to have worsened. She has been using ice and hot packs, alternating the 2 frequently. She does report some mild nausea, but feels very worked up due to the injury. She does report feeling some swelling radiating into her forearm and towards the elbow, but denies any significant redness extending more proximally. She denies any fever, chills, vomiting, body aches, chest pain, dyspnea, or numbness. She does report some pins and needles sensation. Review of Systems A complete 10 point review of systems was reviewed with the patient with pertinent positives and negatives as per history of present illness. All else were negative. Past Medical/Surgical History Medical Problems: (1) Arrhythmia (2) CAD (coronary artery disease) (3) GERD (gastroesophageal reflux disease) (4) HTN (hypertension) (5) Migraine (6) Myocardial infarction (7) PAF (paroxysmal atrial fibrillation) Surgical Problems: (1) History of tubal ligation Family History Diabetes mellitus Heart disease Social History Smoking Status: Never Smoker Smokeless Tobacco Use: No Alcohol Use: occasionally Drug Use: none Marital Status: Occupation Status: disabled Current/Historical Medications Scheduled Amoxicillin & Pot Clavulanate (Augmentin 875-125 mg), 1 TAB PO BID Ferrous Sulfate (Kp Ferrous Sulfate), 325 MG PO TID Fluconazole (Diflucan), 150 MG PO DAILY Home O2 Therapy (Oxygen), 3 LITERS NA HS Lisinopril (Zestril), 5 MG PO QAM Multiple Vitamin (Multivitamin), 1 TAB PO QAM Omeprazole (Prilosec), 40 MG PO QAM Oxybutynin Chloride (Ditropan), 5 MG PO DAILY AT LUNCH Rivaroxaban (Xarelto), 20 MG PO QPM Sotalol Hcl (Sotalol Hcl), 80 MG PO BID Scheduled PRN Albuterol Soln (Ventolin Soln), 1 VIAL INH BID PRN for Shortness of Breath Albuterol Sulfate (Proair Hfa), 2 PUFFS INH QID PRN for Shortness of Breath Nitroglycerin (Nitrostat), 0.4 MG UT UD PRN for Chest Pain Polyethylene (Miralax), 1 DOSE PO DAILY PRN for Constipation Physical Exam Vital Signs Date Time Temp Pulse Resp B/P (MAP) Pulse Ox O2 Delivery O2 Flow Rate FiO2 09/18/17 00:20 81 20 175/85 99 09/17/17 22:53 36.7 79 20 177/87 99 Room Air Physical Exam VITALS: Vitals are noted on the nurse's note and reviewed by myself. Vital signs stable. GENERAL: This is a 62-year-old white female, in no acute distress, nondiaphoretic, well-developed well-nourished. SKIN: 2 superficial puncture wounds on the dorsal aspect of the right hand. There is some mild erythema with moderate swelling. There is no pitting edema. There is some mild swelling radiating toward the wrist and forearm. There is tenderness in these areas. There is no obvious abscess of the hands and the areas of the bites. The skin was otherwise without rashes, erythema, edema, or bruising. There is no tenting of the skin. Capillary reflex less than 2 seconds. HEAD: Normocephalic atraumatic. NECK: Supple without nuchal rigidity. No lymphadenopathy. No thyromegaly. Cervical spine is nontender. No JVD. HEART: Regular rate and rhythm without murmurs gallops or rubs. LUNGS: Clear to auscultation bilaterally without wheezes, rales or rhonchi. No dullness to percussion. No retractions or accessory muscle use. ABDOMEN: Positive bowel sounds x 4. Normal tympanic percussion. Soft, nontender, without masses or organomegaly. Marks sign negative. No guarding or rebound tenderness. MUSCULOSKELETAL: No muscle atrophy, erythema, or edema noted. Full range of motion without joint tenderness in all extremities. No tenderness to palpation. Normal gait. Strength 5/5 throughout. NEURO: Patient was alert and oriented to person place and time. Normal sensation to light and sharp touch. Deep tendon reflexes 2+ throughout. No focal neurological deficits. Medical Decision & Procedures Laboratory Results 09/17/17 23:25 Red Blood Count 4.50, Mean Corpuscular Volume 84.7, Mean Corpuscular Hemoglobin 28.2, Mean Corpuscular Hemoglobin Concent 33.3, Mean Platelet Volume 10.1, Neutrophils (%) (Auto) 55.0, Lymphocytes (%) (Auto) 33.5, Monocytes (%) (Auto) 9.3, Eosinophils (%) (Auto) 1.8, Basophils (%) (Auto) 0.2, Neutrophils # (Auto) 5.09, Lymphocytes # (Auto) 3.11, Monocytes # (Auto) 0.86, Eosinophils # (Auto) 0.17, Basophils # (Auto) 0.02 09/17/17 23:25 Test 09/17/17 23:25 White Blood Count 9.27 K/uL (4.8-10.8) Red Blood Count 4.50 M/uL (4.2-5.4) Hemoglobin 12.7 g/dL (12.0-16.0) Hematocrit 38.1 % (37-47) Mean Corpuscular Volume 84.7 fL (80-100) Mean Corpuscular Hemoglobin 28.2 pg (25-34) Mean Corpuscular Hemoglobin Concent 33.3 g/dl (32-36) Platelet Count 259 K/uL (130-400) Mean Platelet Volume 10.1 fL (7.4-10.4) Neutrophils (%) (Auto) 55.0 % Lymphocytes (%) (Auto) 33.5 % Monocytes (%) (Auto) 9.3 % Eosinophils (%) (Auto) 1.8 % Basophils (%) (Auto) 0.2 % Neutrophils # (Auto) 5.09 K/uL (1.4-6.5) Lymphocytes # (Auto) 3.11 K/uL (1.2-3.4) Monocytes # (Auto) 0.86 K/uL (0.11-0.59) Eosinophils # (Auto) 0.17 K/uL (0-0.5) Basophils # (Auto) 0.02 K/uL (0-0.2) RDW Standard Deviation 39.2 fL (36.4-46.3) RDW Coefficient of Variation 12.8 % (11.5-14.5) Immature Granulocyte % (Auto) 0.2 % Immature Granulocyte # (Auto) 0.02 K/uL (0.00-0.02) Anion Gap 8.0 mmol/L (3-11) Est Creatinine Clear Calc Drug Dose 88.0 ml/min Estimated GFR () 98.8 Estimated GFR (Non- 85.3 BUN/Creatinine Ratio 22.3 (10-20) Calcium Level 8.7 mg/dl (8.5-10.1) Medications Administered Medications (Trade) Dose Ordered Sig/Aicha Route Start Time Stop Time Status Last Admin Dose Admin Ampicillin Sodium/ Sulbactam Sodium 3000 mg/Sodium Chloride 108 ml @ 200 mls/hr ONE STAT IV 09/17/17 23:04 09/17/17 23:36 DC 09/17/17 23:28 200 MLS/HR Diphtheria/ Pertussis/Tetanus Vacc (Adacel Inj) 0.5 ml ONCE ONCE IM. 09/17/17 23:45 09/17/17 23:46 DC 09/17/17 23:36 0.5 ML Amoxicillin/ Clavulanate Potassium (Augmentin 875MG Home Pack) 1 homepack UD STAT PO 09/17/17 23:48 09/17/17 23:49 DC 09/18/17 00:09 1 HOMEPACK Ondansetron HCl (Zofran Odt) 4 mg NOW STAT PO 09/17/17 23:58 09/18/17 00:00 DC 09/18/17 00:09 4 MG ED Course The patient was seen and evaluated as above. IV access obtained, labs drawn. The patient was given 3 g Unasyn IV. The patient was seen by Dr. Mayo. The patient was given a Tdap vaccination. I reviewed the labs. I discussed the findings with the patient at bedside. The patient complains of nausea. She was given 4mg Zofran SL. Discharge instructions reviewed, patient was discharged home in good condition. Medical Decision This is a 62-year-old female patient who presents to the emergency department today complaining of a swollen right hand with tingling. The patient was bitten by a cat earlier today. The patient presents with moderate swelling of the right hand and decreased range of motion in the hand and fingers. The swelling is radiating into the wrist, and she does feel swelling and discomfort extending into her arm. There is no streaking, however the redness and swelling is concerning for a cellulitis associated with the Bite. Labs performed due to the severity of symptoms and only a short period of time since the bite. CBC was without leukocytosis, anemia, thrombocytopenia. The patient' s white blood cell count was 9000. Renal function without significant abnormalities. Potassium slightly low at 3.4. Glucose elevated at 115. The patient's symptoms and examination are consistent with a cat bite cellulitis. She is afebrile and there are no signs of abscess at this time. She will be treated with IV Unasyn here in the ED and discharged home on Augmentin. I discussed the importance of close follow-up with the patient at bedside. She is agreeable to recheck in 24-36 hours either here or with the PCP. Differential diagnosis includes Bite, cellulitis, abscess, DVT, superficial thrombus, septic joint, necrotizing fasciitis, burn, dermatitis, impetigo, erythema multiforme, bite, osteomyelitis, Blackwood-Shilo Syndrome, gangrene, malignancy, and others The chart was completed utilizing [employer] Speech voice recognition software. Grammatical errors, random word insertions, pronoun errors, and incomplete sentences are an occasional consequence of this system due to software limitations, ambient noise, and hardware issues. Any formal questions or concerns about the content, text, or information contained within the body of this dictation should be directly addressed to the provider for clarification. Medication Reconcilliation Current Medication List: was personally reviewed by me Blood Pressure Screening Patient's blood pressure: Elevated blood pressure Blood pressure disposition: Elevated BP felt to be situational Impression Primary Impression: Cat bite of hand Additional Impression: Cellulitis and abscess of hand Departure Information Dispostion Home / Self-Care Condition GOOD Prescriptions Fluconazole (DIFLUCAN) 150 Mg Tab 150 MG PO DAILY for 1 Day, #1 TAB Prov: Tiffany Kaufman PA-C 09/17/17 Amoxicillin & Pot Clavulanate (Augmentin 875-125 mg) 1 Tab Tab 1 TAB PO BID for 10 Days, #20 TAB Prov: Tiffany Kaufman PA-C 09/17/17 Referrals Delligatti,Lorraine PA-C (PCP) Patient Instructions ED Bite Cat, ED Infec Skin Cellulitis, My [facility] Additional Instructions You were seen in the emergency department today for a cat bite with cellulitis. I suspect the numbness and tingling you were experiencing in your hand is related to the swelling of the hand and wrist. Use ice to help with swelling and pain. Wear the arm sling to help with swelling and pain and to keep the extremity elevated. Amoxicillin Clavulanate (Augmentin) 875mg: Take one pill twice daily for 10 days for your infection. All antibiotics can cause diarrhea. If this occurs and you feel worse or it does not resolve in 1-2 days follow up with your doctor or return to the Emergency Department as this could be signs of serious underlying problems. Any medication can cause an allergic reaction, stop the pills immediately and return to the ER for rash, hives, breathing difficulties, or swelling. Take Diflucan as directed if you experience symptoms of a yeast infection. Acetaminophen(Tylenol) may be used for fever or pain. Use 1000mg every six hours as needed. Avoid using more than 3000mg in a 24 hour period. You MUST be re-evaluated in 24-36 hours. This can be at the ED or by your PCP. As discussed, it is IMPERATIVE to keep a close eye on the infection, as it can spread rapidly and become very serious very quickly. Monitor for worsening redness, swelling, pain, drainage, fever, chills, nausea, vomiting, body aches, or other systemic symptoms. Return immediately to the emergency department if any of these occur. Problem Qualifiers Primary Impression: Cat bite of hand Encounter type: initial encounter Laterality: right Qualified Codes: S61.451A - Open bite of right hand, initial encounter; W55.01XA - Bitten by cat , initial encounter
[2017-09-18 00:20] VITALS: BP 175/85; PULSE 81; O2SAT 99
== END 2017-09-18 00:25 | disposition home or self-care (01) ==
LOC: C.EDB 22:51 → C.EDA 09-18 00:25
DX: S61.451A Open bite of right hand, initial encounter (principal); L03.113 Cellulitis of right upper limb; L02.511 Cutaneous abscess of right hand; W55.01XA Bitten by cat, initial encounter; Y93.89 Activity, other specified; Y99.8 Other external cause status; I25.10 Atherosclerotic heart disease of native coronary artery without angina pectoris; I10 Essential (primary) hypertension; K21.9 Gastro-esophageal reflux disease without esophagitis; I48.0 Paroxysmal atrial fibrillation; I25.2 Old myocardial infarction; Z23 Encounter for immunization; Z98.51 Tubal ligation status; Z83.3 Family history of diabetes mellitus; Z79.01 Long term (current) use of anticoagulants; Z79.899 Other long term (current) drug therapy

== ENCOUNTER 2018-06-12 23:44 | Inpatient (IN) ==
[2018-06-12] MEDS ORDERED: HYDROCODONE/HOMATROPINE SYRUP 5MG/1.5MG 5ML UDP PO STA (23:56)
[2018-06-12] MEDS ORDERED: SODIUM CHLORIDE 0.9% 1000ML 1,000 ML IV ONE (23:56)
[2018-06-12] MEDS ORDERED: DEXAMETHASONE SOD INJ 4 MG/ML VIAL IV STA (23:56)
[2018-06-12] MEDS ORDERED: ALBUT/IPRATROP 3MG/0.5MG NEB 3 ML VIAL NEB STA (23:56)
[2018-06-12] MEDS ORDERED: ACETAMINOPHEN 500 MG TAB PO STA (23:58)
[2018-06-13 00:24] LABS: Basophils # (auto) 0.04 K/uL (0-0.2); Basophils % (auto) 0.3 %; Eosinophils # (auto) 0.17 K/uL (0-0.5); Eosinophils % (auto) 1.2 %; Hematocrit (blood only) 37.2 % (37-47); Hemoglobin 12.2 g/dL (12.0-16.0); Immature Granulocytes # (auto) 0.03 K/uL (0.00-0.02); Immature Granulocytes % (auto) 0.2 %; Lymphocytes # (auto) 2.38 K/uL (1.2-3.4); Lymphocytes % (auto) 16.3 %; Mean Corpuscular Hgb Conc 32.8 g/dL (32-36); Mean Corpuscular Volume 86.3 fL (80-100); Mean Platelet Volume 10.3 fL (7.4-10.4); Monocytes # (auto) 1.01 K/uL (0.11-0.59); Monocytes % (auto) 6.9 %; Neutrophils # (auto) 10.95 K/uL (1.4-6.5); Neutrophils % (auto) 75.1 %; Platelet Count 265 K/uL (130-400); RDW Coefficient of Variation 13.1 % (11.5-14.5); RDW Standard Deviation 41.4 fL (36.4-46.3); Red Blood Count 4.31 M/uL (4.2-5.4); White Blood Count 14.58 K/uL (4.8-10.8)
[2018-06-13 00:41] LABS: BUN Creatinine Ratio 19.6 (10-20); Blood Urea Nitrogen 14 mg/dl (7-18); Calcium 8.7 mg/dl (8.5-10.1); Carbon Dioxide 27 mmol/L (21-32); Chloride 103 mmol/L (98-107); Creatinine Clr Calc Pharmacy 92.3 ml/min; Est GFR (African American) 106.5; Est GFR (Non-African American) 91.9; Glucose 110 mg/dl (70-99); Potassium 3.9 mmol/L (3.5-5.1); Sodium 139 mmol/L (136-145)
[2018-06-13 00:45] LABS: Troponin I < 0.015 ng/ml (0-0.045)
[2018-06-13 01:05] LABS: Influenza A virus by PCR Neg for Influ A (Neg); Influenza B virus by PCR Neg for Influ B (Neg)
[2018-06-13] MEDS ORDERED: LEVOFLOXACIN/D5W 750 MG/150 ML BAG IV STA (02:01)
--- NOTE | 2018-06-13 04:01 | History & Physical Report ---
Date of Service June 13, 2018 Assessment & Plan (1) Hypoxia: 63F who presents with PMH CAD, paroxysmal A. fib, hypertension who presents with 3-day history of shortness of breath, dry cough, myalgias, headache, chest pressure, weakness and malaise. Patient's past medical history significant for paroxysmal A. fib, nonobstructive CAD, hypertension, atypical chest pain, hyperlipidemia. She presented to the ED via EMS due to inability to drive herself given her weakness. She states she has been feeling unwell for at least 3 days now, and fell against her couch earlier today because of weakness. Also complains of some hemoptysis. In the ED she was found to be briefly hypoxic 88% on room air. Labs remarkable for slightly elevated white count 14.58, BMP normal, troponin negative. Lactate 1.7. Flu negative. Chest x-ray was suspicious for pneumonia. Hospitalist service ordered chest CT without contrast which showed atelectasis. She was given a DuoNeb, 10 mg Decadron, Hycodan, 1 L of fluids, Tylenol, 1 dose of Levaquin. Hypoxia, in setting of bronchospasm and bronchitis -Pneumonia-bacterial versus viral, versus bronchitis -CT does not suggest consolidation Plan -Oxygen as needed -Admit to MedSurg-Pulmicort Respules -Methylprednisolone scheduled -Albuterol inhaler as needed FEN/GI: Heart healthy DVT ppx: SCDs, on Xarelto CODE STATUS: Full no mechanical ventilation is confirmed with the patient. DISPO: MedSurg Other ongoing medical problems [place] -CPAP ordered Paroxysmal A. fib -Currently in sinus, rate in the 80s -[facility] -Continue home medicines including diltiazem, lisinopril, sublingual nitro, Xarelto Overflow incontinence -Continue home medicine Vesicare GERD -Continue home omeprazole Pain -Continue home gabapentin 300 mg TID (2) HTN (hypertension): (3) PAF (paroxysmal atrial fibrillation): (4) CAD (coronary artery disease): (5) GERD (gastroesophageal reflux disease): (6) Bronchospasm with bronchitis, acute: History of Present Illness Primary Care Provider: Christian Wood 63F who presents with 3-day history of shortness of breath, dry cough, myalgias , headache, chest pressure, weakness and malaise. Patient's past medical history significant for paroxysmal A. fib, nonobstructive CAD, hypertension, atypical chest pain, hyperlipidemia. She presented to the ED via EMS due to inability to drive herself given her weakness. She states she has been feeling unwell for at least 3 days now, and fell against her couch earlier today because of weakness. In the ED she was found to be briefly hypoxic 88% on room air. Labs remarkable for slightly elevated white count 14.58, BMP normal, troponin negative. Lactate 1.7. Flu negative. Chest x-ray was suspicious for pneumonia. Hospitalist service ordered chest CT without contrast which showed atelectasis. She was given a DuoNeb, 10 mg Decadron, Hycodan, 1 L of fluids, Tylenol, 1 dose of Levaquin. PMH: (1) CAD (coronary artery disease (2) GERD (gastroesophageal reflux disease) (3) HTN (hypertension) (4) Migraine (5) Myocardial infarction (6) PAF (paroxysmal atrial fibrillation) PSH: (1) History of tubal ligation Social history: Patient lives at home with 8 cats. Denies tobacco or drug use. Occasional drinker. Allergies Allergy/AdvReac Type Severity Reaction Status Date / Time Sulfa (Sulfonamide Allergy Intermediate METAL Verified 06/13/18 02:38 Antibiotics) TASTE IN MOUTH, TONGUE SWELLS UP latex Allergy Unknown RASH Verified 06/13/18 02:38 Home Medications Home Medications Medication Instructions Recorded Confirmed Type Home Oxygen 1 device UD 06/13/18 06/13/18 History albuterol sulfate 2 puff INHALATION Q6H PRN 06/13/18 06/13/18 History clobetasol 1 applic TOPICAL BID PRN 06/13/18 06/13/18 History diltiazem HCl 120 mg PO DAILY 06/13/18 06/13/18 History ferrous sulfate 325 mg PO DAILY 06/13/18 06/13/18 History fluticasone [Flonase Allergy 2 spray INTRANASAL BID 06/13/18 06/13/18 History Relief] gabapentin 300 mg PO TID 06/13/18 06/13/18 History lisinopril 10 mg PO DAILY 06/13/18 06/13/18 History multivitamin [Multiple Vitamins] 1 tab PO DAILY 06/13/18 06/13/18 History nitroglycerin 0.4 mg SUBLINGUAL UD PRN 06/13/18 06/13/18 History omeprazole 40 mg PO QAM 06/13/18 06/13/18 History rivaroxaban [Xarelto] 20 mg PO PM 06/13/18 06/13/18 History solifenacin [Vesicare] 5 mg PO DAILY 06/13/18 06/13/18 History Past Med/Surg History Medical History HTN (hypertension) (Chronic) PAF (paroxysmal atrial fibrillation) (Chronic) CAD (coronary artery disease) (Chronic) Migraine (Chronic) GERD (gastroesophageal reflux disease) (Chronic) Social History Feels Safe at Home: Yes Smoking Status: Never smoker Review of Systems All systems reviewed & are unremarkable except as noted in HPI & below Physical Exam 2 Vital Signs (Past 24 Hours): Last Vital Signs Temp 36.4 C L 06/13/18 02:03 Pulse 82 06/13/18 02:03 Resp 20 06/13/18 02:03 BP 158/76 H 06/13/18 02:03 Pulse Ox 99 06/13/18 02:03 Physical Exam: Vitals noted as above and within normal limits 99 on 2 L, hypertension.. GENERAL: Awake, alert to person, place, and time, nontoxic-appearing, in no distress HENT: Normocephalic, atraumatic. Nasal cannula in place. Mucus membranes appear moist. EYES: Normal conjunctiva. Sclera non-icteric. EOMI. NECK: Supple. Full range of motion. No JVD RESPIRATORY: Wheezing auscultated bilaterally.. Normal work of breathing. CARDIAC: Regular rate, normal rhythm. Extremities warm and well perfused, 2+ radial pulses bilaterally; 2+ posterior tibialis pulses bilaterally. ABDOMEN: Soft, non-distended. No tenderness to palpation in all four quadrants. No rebound or guarding. No masses. Bowel sounds are normal. LOWER EXTREMITIES: Inspection of calves reveal equal size bilaterally. They are non-tender. No edema. No discoloration. NEURO: No focal gross focal motor deficits noted. Sensation in tact. CN II-XII grossly in tact. SKIN: Rash not present. No jaundice noted. Significant lesions not present. PSYCH: Appropriate mood and affect. Cooperative. Exam as done by Shante Malone MD, Supervisor Molding. Results & Data Laboratory Results 06/13/18 06/13/18 06/13/18 Range/Units 00:30 00:25 00:10 WBC (4.8-10.8) K/uL RBC (4.2-5.4) M/uL Hgb (12.0-16.0) g/dL Hct (37-47) % MCV (80-100) fL MCH (25-34) pg MCHC (32-36) g/dL RDW Std Deviation (36.4-46.3) fL RDW Coeff of Emma (11.5-14.5) % Plt Count (130-400) K/uL MPV (7.4-10.4) fL Immature Gran % (Auto) % Neut % (Auto) % Lymph % (Auto) % Hudson % (Auto) % Eos % (Auto) % Baso % (Auto) % Immature Gran # (Auto) (0.00-0.02) K/uL Neut # (Auto) (1.4-6.5) K/uL Lymph # (Auto) (1.2-3.4) K/uL Hudson # (Auto) (0.11-0.59) K/uL Eos # (Auto) (0-0.5) K/uL Baso # (Auto) (0-0.2) K/uL Sodium 139 (136-145) mmol/L Potassium 3.9 (3.5-5.1) mmol/L Chloride 103 (98-107) mmol/L Carbon Dioxide 27 (21-32) mmol/L Anion Gap 9.0 (3-11) BUN 14 (7-18) mg/dl Creatinine 0.71 (0.6-1.2) mg/dl Est Cr Clr Drug Dosing 92.3 ml/min Est GFR ( Amer) 106.5 Est GFR (Non-Af Amer) 91.9 BUN/Creatinine Ratio 19.6 (10-20) Glucose 110 H (70-99) mg/dl Lactate 1.7 (0.4-2.0) mmol/L Calcium 8.7 (8.5-10.1) mg/dl Troponin I < 0.015 (0-0.045) ng/ml Influenza Type A (PCR) Neg for Influ A (Neg) Influenza Type B (PCR) Neg for Influ B (Neg) 06/13/18 Range/Units 00:10 WBC 14.58 H (4.8-10.8) K/uL RBC 4.31 (4.2-5.4) M/uL Hgb 12.2 (12.0-16.0) g/dL Hct 37.2 (37-47) % MCV 86.3 (80-100) fL MCH 28.3 (25-34) pg MCHC 32.8 (32-36) g/dL RDW Std Deviation 41.4 (36.4-46.3) fL RDW Coeff of Emma 13.1 (11.5-14.5) % Plt Count 265 (130-400) K/uL MPV 10.3 (7.4-10.4) fL Immature Gran % (Auto) 0.2 % Neut % (Auto) 75.1 % Lymph % (Auto) 16.3 % Hudson % (Auto) 6.9 % Eos % (Auto) 1.2 % Baso % (Auto) 0.3 % Immature Gran # (Auto) 0.03 H (0.00-0.02) K/uL Neut # (Auto) 10.95 H (1.4-6.5) K/uL Lymph # (Auto) 2.38 (1.2-3.4) K/uL Hudson # (Auto) 1.01 H (0.11-0.59) K/uL Eos # (Auto) 0.17 (0-0.5) K/uL Baso # (Auto) 0.04 (0-0.2) K/uL Sodium (136-145) mmol/L Potassium (3.5-5.1) mmol/L Chloride (98-107) mmol/L Carbon Dioxide (21-32) mmol/L Anion Gap (3-11) BUN (7-18) mg/dl Creatinine (0.6-1.2) mg/dl Est Cr Clr Drug Dosing ml/min Est GFR ( Amer) Est GFR (Non-Af Amer) BUN/Creatinine Ratio (10-20) Glucose (70-99) mg/dl Lactate (0.4-2.0) mmol/L Calcium (8.5-10.1) mg/dl Troponin I (0-0.045) ng/ml Influenza Type A (PCR) (Neg) Influenza Type B (PCR) (Neg) Supervising Physician Co-Signing Physician Notes Attending addendum: I have physically seen this patient, have supervised the medical residents activities, and agree with the H&P unless as otherwise noted. Assessment and Plan: Transient hypoxia associated with bronchospasm/bronchitis-- Avoid additional antibiotics for now, she is been on several in the past months. Duonebs every 4 hours while awake and every 2 hours when necessary. Pulmicort Respules 0.5 mg inhaled twice daily Methylprednisolone IV. We ordered a chest CT without contrast which did not show any acute infection; no sign of consolidation to suggest bacterial or fungal process. However, would be concerned about a possible underlying fungal process with the combination of antibiotics and steroids that she has been on. If she does not show significant improvement, she may be candidate for bronchoscopy. Generalized weakness-- Pulmonary component, adrenal insufficiency complement. To pulmonary as above. Placed on IV Solu-Medrol to treat pulmonary and act as stress dose steroids. Remainder of orders and notations as noted. Resident Activity Tracking Resident Involvement: Resident Care Provided Care Provided: Adult Hospital Medicine
--- NOTE | 2018-06-13 04:02 | Emergency Department Note ---
Entered by Jackie Lyle acting as a scribe for Franklin Mayo MD ED Provider Note Name: Kateryna Ortez Age: 63 Arrives Via: Ambulance Informant: Self CC: SOB HPI: A female arrives for evaluation after complaining of SOB that worsened today. The patient reports that she has had a sore throat for a week. She complains of a cough, noting that she occasionally brings up sputum. The patient complains of wheezing, lightheadedness, fever/chills, nausea, decreased appetite, and body aches. She denies any rhinorrhea, diarrhea, and change in urination. She states that she took Nyquil at 1600, but notes that it provided no relief. The patient reports that she returned home from a 2-week [place] cruise yesterday. She denies getting a flu shot this year. The patient notes a history of bronchitis and COPD, stating that she has a CPAP at home. ROS: See above HPI for pertinent positives & negatives. A total of 10 systems reviewed and were otherwise negative. Past Medical History: bronchitis, COPD, myocardial infarction Past Surgical History: no known past surgical history Family History: no significant family history Social History: denies smoking Home Medications: See below. Allergies: latex, Sulfonamide antibiotics Physical: Vitals: BP: 153/78, P: 101, R: 22, T: 99.1, O2: 95, D: Room air Exam: GENERAL: Patient is unwell appearing and in moderate distress. EYES: No scleral icterus, unremarkable pupils. ENT: Mucous membranes moist, no nasal congestion. NECK: No masses appreciated, no meningismus, trachea is midline. RESPIRATORY: No dyspnea. Decreased lung sounds and crackles in the right lower lobe. Mild wheezing throughout. No rhonchi. CARDIOVASCULAR: Tachycardic rate and regular rhythm. No murmurs, rubs, gallops appreciated. GASTROINTESTINAL: Abdomen soft, non-tender, no peritonitis. Bowel sounds positive. No masses appreciated. BACK: No midline tenderness, no CVA tenderness EXTREMITIES: Normal motion all extremities, no cyanosis, no edema. NEUROLOGIC: Alert and oriented, no acute motor or sensory deficits, no focal weakness, cranial nerves grossly intact. SKIN: No rash, no jaundice, no diaphoresis. ED Course: Prior Medical Record, Triage/Nursing Notes, Medications, Allergies reviewed by Me Vital Signs: reviewed and remarkable for hypertension and tachycardia. Labs: Reviewed and remarkable for Elevated WBC Interventions: Saline Lock, NSS bolus, Levaquin 750mg IV, Duoneb, Decadron 10mg IV Imaging: S X ray results are stated below per my interpretation: Chest: 1 view: Questionable infiltrate RLL, moderately large cardiac boarder withour pulm edema, no effusion. EKG: See below. Consults: 0200: I spoke with Dr. Vázquez, [facility] hospitalist, about the patient's case. He will further evaluate her. Times: 2350: Past medical records reviewed. The patient was evaluated in room B08, and a complete history and physical examination were performed. 0106: I checked on the patient. The nebulizer was finished. Her breathing improved. She states that she feels better. She reports that she still has a periodic cough. Her Sat 02 is 97% on room air. We are awaiting her influenza results. 0154: I checked on the patient, and she was awake and talking. Her O2 Sat was at 88%. She states that her SOB mildly worsened. She was given 2 L with improvement. The hospitalist was paged. 0200: I spoke with Dr. Vázquez, [facility] hospitalist, about the patient's case. He will further evaluate her. Blood pressure: HTN, Referral to hospitalist. Disposition: Hospitalizatin Prescriptions: none. Differentials: Viral syndrome, otitis, pharyngitis, pneumonia, influenza, meningitis, urinary tract infection, septic arthritis, soft tissue infectious process, intra- abdominal process, sepsis, bacteremia amongst other pathologies. Medical Decision Making: Pleasant 63 yr old female with worsening shob, fevers, chills, weakness over last 24 hours post travel on cruise. Bronchitis with questionable RLL decreased breath sounds on exam. Febrile for EMS and at home and temp trending down here. She is not septic, however after fluids and neb her sats noted to be trending down. Given 88% on RA hosptialist was consulted. She did well on NC and was breathing much better. There was concern for TB by EMS though as she was on Cruise and has no other risk factors I think this unlikely. I suspect the coughing some blood is from her being on xarelto, furthermore she has no cavitary lesions on CXR that I can see. She is not septic, does not require 30ml/kg IV fluids. She was given IV Levaquin for coverage. Impression: Pneumonia Hypoxia Franklin Mayo MD The scribe's documentation has been prepared under my direction and personally reviewed by me in its entirety. I confirm that the note above accurately reflects all work, treatment, procedures, and medical decision making performed by me. Impression & Plan Pneumonia, Hypoxia Past Med/Surg History Medical History HTN (hypertension) (Chronic) PAF (paroxysmal atrial fibrillation) (Chronic) CAD (coronary artery disease) (Chronic) Migraine (Chronic) GERD (gastroesophageal reflux disease) (Chronic) Social History Feels Safe at Home: Yes Smoking Status: Never smoker Results & Data Vital Signs Vital Signs - 24 hr 06/12/18 23:51 06/13/18 01:53 06/13/18 02:03 Temperature 37.3 C 36.4 C L Temperature Source Oral Oral Sepsis Recent Fever Within 48 Hours Yes Sepsis New/Unexplained Change in Mental Status No Sepsis Action Taken by Nursing Physician Notified Pulse Rate 101 H Pulse Rate [Bilateral] 82 Pulse Rhythm Regular Pulse Rhythm [Bilateral] Regular Pulse Strength Normal Pulse Strength [Bilateral] Normal Respiratory Rate 22 20 Respiratory Effort / Characteristics Spontaneous Labored Non-Labored Spontaneous Respiratory Depth Normal Normal Respiratory Pattern Regular Blood Pressure 153/78 H Blood Pressure [Right Arm] 158/76 H Blood Pressure Mean 103 Blood Pressure Mean [Right Arm] 103 Blood Pressure Position Sitting Blood Pressure Position [Right Arm] Lying Pulse Oximetry 95 93 99 Oxygen Delivery Method Room Air Nasal Cannula Nasal Cannula Oxygen Flow Rate 2 2 Home Medications Current Medication List: was personally reviewed by me Laboratory Data Attestation: I reviewed the patient's lab results. Result diagrams: 06/13/18 00:10 06/13/18 00:10 Lab Results 06/13/18 06/13/18 06/13/18 Range/Units 00:10 00:10 00:25 WBC 14.58 H (4.8-10.8) K/uL RBC 4.31 (4.2-5.4) M/uL Hgb 12.2 (12.0-16.0) g/dL Hct 37.2 (37-47) % MCV 86.3 (80-100) fL MCH 28.3 (25-34) pg MCHC 32.8 (32-36) g/dL RDW Std Deviation 41.4 (36.4-46.3) fL RDW Coeff of Emma 13.1 (11.5-14.5) % Plt Count 265 (130-400) K/uL MPV 10.3 (7.4-10.4) fL Immature Gran % (Auto) 0.2 % Neut % (Auto) 75.1 % Lymph % (Auto) 16.3 % [place] % (Auto) 6.9 % Eos % (Auto) 1.2 % Baso % (Auto) 0.3 % Immature Gran # (Auto) 0.03 H (0.00-0.02) K/uL Neut # (Auto) 10.95 H (1.4-6.5) K/uL Lymph # (Auto) 2.38 (1.2-3.4) K/uL [place] # (Auto) 1.01 H (0.11-0.59) K/uL Eos # (Auto) 0.17 (0-0.5) K/uL Baso # (Auto) 0.04 (0-0.2) K/uL Sodium 139 (136-145) mmol/L Potassium 3.9 (3.5-5.1) mmol/L Chloride 103 (98-107) mmol/L Carbon Dioxide 27 (21-32) mmol/L Anion Gap 9.0 (3-11) BUN 14 (7-18) mg/dl Creatinine 0.71 (0.6-1.2) mg/dl Est Cr Clr Drug Dosing 92.3 ml/min Est GFR ( Amer) 106.5 Est GFR (Non-Af Amer) 91.9 BUN/Creatinine Ratio 19.6 (10-20) Glucose 110 H (70-99) mg/dl Lactate (0.4-2.0) mmol/L Calcium 8.7 (8.5-10.1) mg/dl Troponin I < 0.015 (0-0.045) ng/ml Influenza Type A (PCR) Neg for Influ A (Neg) Influenza Type B (PCR) Neg for Influ B (Neg) 06/13/18 Range/Units 00:30 WBC (4.8-10.8) K/uL RBC (4.2-5.4) M/uL Hgb (12.0-16.0) g/dL Hct (37-47) % MCV (80-100) fL MCH (25-34) pg MCHC (32-36) g/dL RDW Std Deviation (36.4-46.3) fL RDW Coeff of Emma (11.5-14.5) % Plt Count (130-400) K/uL MPV (7.4-10.4) fL Immature Gran % (Auto) % Neut % (Auto) % Lymph % (Auto) % [place] % (Auto) % Eos % (Auto) % Baso % (Auto) % Immature Gran # (Auto) (0.00-0.02) K/uL Neut # (Auto) (1.4-6.5) K/uL Lymph # (Auto) (1.2-3.4) K/uL [place] # (Auto) (0.11-0.59) K/uL Eos # (Auto) (0-0.5) K/uL Baso # (Auto) (0-0.2) K/uL Sodium (136-145) mmol/L Potassium (3.5-5.1) mmol/L Chloride (98-107) mmol/L Carbon Dioxide (21-32) mmol/L Anion Gap (3-11) BUN (7-18) mg/dl Creatinine (0.6-1.2) mg/dl Est Cr Clr Drug Dosing ml/min Est GFR ( Amer) Est GFR (Non-Af Amer) BUN/Creatinine Ratio (10-20) Glucose (70-99) mg/dl Lactate 1.7 (0.4-2.0) mmol/L Calcium (8.5-10.1) mg/dl Troponin I (0-0.045) ng/ml Influenza Type A (PCR) (Neg) Influenza Type B (PCR) (Neg) Administered Medications Discontinued Medications Acetaminophen (Tylenol) 1,000 mg PO NOW STA Stop: 06/12/18 23:59 Last Admin: 06/13/18 00:18 Dose: 1,000 mg Albuterol (Duoneb) 3 ml NEB NOW STA Stop: 06/12/18 23:57 Last Admin: 06/13/18 00:19 Dose: 3 ml Dexamethasone (Decadron) 10 mg IV NOW STA Stop: 06/12/18 23:57 Last Admin: 06/13/18 00:18 Dose: 10 mg Hydrocodone Bit/Homatropine Methylb (Hycodan) 5 ml PO NOW STA Stop: 06/12/18 23:57 Last Admin: 06/13/18 00:19 Dose: 5 ml Sodium Chloride (Nss 1000ml) 1,000 mls @ 999 mls/hr IV .Q1H1M ONE Stop: 06/13/18 00:56 Last Infusion: 06/13/18 01:58 Dose: 0 mls/hr Admin: 06/13/18 00:19 Dose: 999 mls/hr Levofloxacin/Dextrose (Levaquin/D5w) 750 mg in 150 mls @ 100 mls/hr IV NOW STA Stop: 06/13/18 03:30 Last Infusion: 06/13/18 04:37 Dose: 0 mls/hr Admin: 06/13/18 02:38 Dose: 100 mls/hr ECG Data Attestation: I personally reviewed and interpreted this ECG as follows: Indication: SOB/dyspnea Rate (beats per minute): 86 Rhythm: normal sinus Findings: + other (QTc 433); no acute ischemic change and no ectopy Comparison ECG Date: from (similar EKGs) Change: no significant change Blood Pressure Blood Pressure Findings: Elevated blood pressure Blood Pressure Disposition: further management by hospitalist Discharge Plan Visit Data Chief Complaint: Respiratory Problems ED Provider: Franklin Mayo Discharge Problem: Pneumonia, Hypoxia Patient Disposition: Being Evaluated by Hospitalist Forms Stand Alone Forms: My [facility] Prescriptions Prescriptions: No Action multivitamin [Multiple Vitamins] Tablet 1 tab PO DAILY RF: 0 clobetasol 0.05 % cream 1 applic topical BID PRN (Reason: Rash) RF: 0 omeprazole 40 mg capsule,delayed release(DR/EC) 40 mg PO QAM RF: 0 lisinopril 10 mg tablet 10 mg PO DAILY RF: 0 nitroglycerin 0.4 mg tablet, sublingual 0.4 mg Sublingual UD PRN (Reason: Chest Pain) RF: 0 gabapentin 300 mg capsule 300 mg PO TID RF: 0 solifenacin [Vesicare] 5 mg tablet 5 mg PO DAILY RF: 0 ferrous sulfate 325 mg (65 mg iron) Tablet 325 mg PO DAILY RF: 0 albuterol sulfate 90 mcg/actuation Hfa Aerosol Inhaler 2 puff INHALATION Q6H PRN (Reason: Shortness Of Breath Or Wheezing) RF: 0 rivaroxaban [Xarelto] 20 mg Tablet 20 mg PO PM RF: 0 fluticasone [Flonase Allergy Relief] 50 mcg/actuation [place],Suspension 2 spray INTRANASAL BID RF: 0 Home Oxygen 1 device UD RF: 0 diltiazem HCl 120 mg Capsule,Extended Release 24 Hr 120 mg PO DAILY RF: 0 Referrals Referrals: Christian Wood MD [Primary Care Provider] - The scribe's documentation has been prepared under my direction and personally reviewed by me in its entirety. I confirm that the note above accurately reflects all work, treatment, procedures, and medical decision making performed by me.
[2018-06-13] MEDS ORDERED: NITROGLYCERIN SL 0.4 MG/TAB TAB SL PRN (06:15)
[2018-06-13] MEDS ORDERED: ALBUTEROL HFA 8 GM INHALER INH PRN (06:15)
[2018-06-13] MEDS ORDERED: MAGNESIUM HYDROXIDE SUSP 30 ML UDC PO PRN (06:15)
[2018-06-13] MEDS ORDERED: COUGH DROP (SUGAR FREE) LOZ 24 LOZ/1 BOX BUCCAL PRN (06:15)
[2018-06-13] MEDS ORDERED: ALUMINUM/MAGNESIUM SUSP 30 ML UDC PO PRN (06:15)
[2018-06-13] MEDS ORDERED: ACETAMINOPHEN 325 MG TAB PO PRN (06:15)
--- NOTE | 2018-06-13 07:13 | XRay Report ---
SINGLE VIEW CHEST CLINICAL HISTORY: Cough and fever. FINDINGS: An AP, portable, upright chest radiograph is compared to study dated 09/25/2016. The examina tion is degraded by portable technique and patient rotation. The heart is enlarged. The pulmonary va sculature is noncongested. Bibasilar atelectasis is observed. No airspace consolidation or large pleu ral effusion is identified. No pneumothorax is seen. The skeletal structures are osteopenic. The bony thorax is grossly intact. IMPRESSION: Cardiomegaly with no acute cardiopulmonary abnormality. Electronically signed by: Silviano Carrillo M.D. 06/13/2018 7:11 AM
[2018-06-13] MEDS: BUDESONIDE 0.5 MG/2 ML VIAL (PULMICORT) NEB SCH (07:33)
[2018-06-13] MEDS: GUAIFENESIN/CODEINE 100MG/10MG 5ML UDC PO PRN ×2 (07:58→14:36)
[2018-06-13] MEDS: FERROUS SULFATE 325 MG TAB PO SCH (08:02)
[2018-06-13] MEDS: FLUTICASONE PROPIONATE NA SPR 16 GM BTL SCH ×2 (08:02→21:06)
[2018-06-13] MEDS: dilTIAZem ER 120 MG CAPCR PO SCH (08:03)
[2018-06-13] MEDS: methylPREDNISolone 4 MG TAB PO SCH ×2 (08:03→21:05)
[2018-06-13] MEDS: GABAPENTIN 300 MG CAP PO SCH ×3 (08:04→21:05)
[2018-06-13] MEDS: LISINOPRIL 10 MG TAB PO SCH (08:04)
[2018-06-13] MEDS: PANTOprazole 40 MG TAB PO SCH (08:05)
[2018-06-13] MEDS: MULTIVITAMIN TAB PO SCH (08:05)
--- NOTE | 2018-06-13 08:09 | CT Scan Report ---
CT SCAN OF THE CHEST WITHOUT IV CONTRAST CLINICAL HISTORY: Hypoxia. COMPARISON STUDY: Chest x-ray dated 06/13/2018. Chest CT dated 06/26/2014. TECHNIQUE: CT scan of the thorax was performed from the thoracic inlet to the upper abdomen. Images are reviewed in the axial, sagittal, and coronal planes. IV contrast was not administered for this ex amination as per the referring clinician. A dose lowering technique was utilized adhering to the [facility] [place]. CT DOSE: 699.70 mGy.cm FINDINGS: Thyroid: Imaged portions of the thyroid gland are normal in size and attenuation. Thoracic aorta: Minimal atherosclerotic calcification is noted. There is mild aneurysmal dilatation o f the ascending thoracic aorta which measures up to 4.0 cm. The remainder of the thoracic aorta is no rmal in caliber. The arch demonstrates standard 3-vessel anatomy. Heart: The heart is enlarged and without pericardial effusion. The pulmonary trunk is dilated, measur ing 3.6 cm in diameter. This suggests pulmonary artery hypertension. There is calcification of the mi tral annulus. Lungs and pleural spaces: There is no airspace consolidation or pleural effusion. Bibasilar scarring/ atelectasis is observed. The trachea and central airways are clear. Scattered calcified granulomas ar e observed. There is a 3 mm pleural-based nodule in the right middle lobe seen image #[id number], and a 4 mm right upper lobe nodule seen image #113. These been present dating back to 2014 and are of doubtful significance. Mediastinum: There is no mediastinal lymphadenopathy. Coreen: Not well assessed without IV contrast. Axillae: There is no axillary lymphadenopathy. Upper abdomen: There is a small hiatal hernia. There is evidence of hepatic steatosis. Skeletal structures: The skeletal structures are osteopenic. Mild degenerative changes noted in the t horacic spine. No lytic or blastic bony lesions are seen. IMPRESSION: 1. There is no airspace consolidation or pleural effusion. 2. Cardiomegaly with evidence of pulmonary artery hypertension. 3. There is mild aneurysmal dilatation of the ascending thoracic aorta which measures up to 4.0 cm. N onemergent surgical follow-up is recommended. 4. Hepatic steatosis. 5. Additional findings as above. Electronically signed by: Silviano Carrillo M.D. 06/13/2018 8:07 AM
--- NOTE | 2018-06-13 11:46 | Discharge Summary ---
Addendum entered and electronically signed by Holger Thomason MD 06/14/18 11:07: Addendum (Blank) Addendum June 14, 2018 11:06 Date of service for this discharge summary is June 14, 2018. Patient was discharged yesterday (Jun 13, 2018) however did not have a ride home. Patient will be discharged Jun 14, 2018. Assessment and management is essentially unchanged from Jun 13. Original Note: Date of Service June 14, 2018 Admission HPI Per Admitting Provider [id number] who presents with 3-day history of shortness of breath, dry cough, myalgias , headache, chest pressure, weakness and malaise. Patient's past medical history significant for paroxysmal A. fib, nonobstructive CAD, hypertension, atypical chest pain, hyperlipidemia. She presented to the ED via EMS due to inability to drive herself given her weakness. She states she has been feeling unwell for at least 3 days now, and fell against her couch earlier today because of weakness. In the ED she was found to be briefly hypoxic 88% on room air. Labs remarkable for slightly elevated white count 14.58, BMP normal, troponin negative. Lactate 1.7. Flu negative. Chest x-ray was suspicious for pneumonia. Hospitalist service ordered chest CT without contrast which showed atelectasis. She was given a DuoNeb, 10 mg Decadron, Hycodan, 1 L of fluids, Tylenol, 1 dose of Levaquin. PMH: (1) CAD (coronary artery disease (2) GERD (gastroesophageal reflux disease) (3) HTN (hypertension) (4) Migraine (5) Myocardial infarction (6) PAF (paroxysmal atrial fibrillation) PSH: (1) History of tubal ligation Social history: Patient lives at home with 8 cats. Denies tobacco or drug use. Occasional drinker. Principal Diagnosis Bronchitis Discharge Exam Constitutional WD/WN, vitals as above + well hydrated and + obese Frequently coughing Respiratory normal respiratory effort, + cough and able to speak in complete sentences; no respiratory distress, no labored breathing and does not use accessory muscles Auscultation: + diminished lung sounds and + wheezes (occasional soft expiratory wheeze); no crackles Cardiovascular RRR, no murmur, no edema Gastrointestinal (Abdomen) Percussion/Palpation: abdomen soft; abdomen nontender, no guarding and abdomen not rigid Skin no rashes, warm and dry Discharge Data Allergies Allergy/AdvReac Type Severity Reaction Status Date / Time Sulfa (Sulfonamide Allergy Intermediate METAL Verified 06/13/18 02:38 Antibiotics) TASTE IN MOUTH, TONGUE SWELLS UP latex Allergy Unknown RASH Verified 06/13/18 02:38 Consultations 06/13/18 02:00 ED Decision to Admit Stat Ordered Studies 06/13/18 02:06 CT chest wo con Urgent Hospital Course (1) Hypoxia: Ms. Ortez is a 63 year old female with a past medical hx of CAD, paroxysmal A. fib, hypertension who presents with a 1 month history of fatigue, SOB and wheezing on exertion, dry cough, with a 3-day history of worsening symptoms, including worsening shortness of breath, dry cough, myalgias, headache , chest pressure, weakness and malaise. In the ED she was found to be briefly hypoxic 88% on room air. Labs remarkable for slightly elevated white count 14.58, BMP normal, troponin negative. Lactate 1.7. Flu negative. Chest x-ray was suspicious for pneumonia. Hospitalist service ordered chest CT without contrast which showed atelectasis. She was given a DuoNeb, 10 mg Decadron, Hycodan, 1 L of fluids, Tylenol, 1 dose of Levaquin. Hypoxia, in setting of bronchospasm and bronchitis - CXR and CT of thorax did not reveal pneumonia/mass - bcx pending but pt afebrile w/out signs of sepsis. Normal lactate. - elevated WCC to 14.58 w/neutrophilic predominance - treated w/pulmicort Respules and Methylprednisolone. Patient did receive levaquin in ED. - symptoms likely secondary to bronchitis, however given duration >1 month, will treat w/z-pack and tapering dose of methylprednisone - patient required oxygen only transiently for a drop in O2 sats to 88% briefly -> she was able to be weaned off oxygen by the time I examined her and was able to ambulate in the hallways without dropping her saturations below 95% - recommend outpatient PFTs given patient may have an element of OHS (2) HTN (hypertension): (3) PAF (paroxysmal atrial fibrillation): (4) CAD (coronary artery disease): (5) GERD (gastroesophageal reflux disease): (6) Bronchospasm with bronchitis, acute: Total Time Total Time Spent Total Time Spent (In Minutes): <30 Discharge Plan Discharge Items Patient Disposition: Home - Self-Care Reason For Visit: HYPOXIA Discharge Diagnosis: Bronchitis Discharge Goals: Decrease discomfort, Improve disease control and Improve function Activity: Resume your previous activity Non-emergency contact: Primary Care Provider Call non-emergency contact if: you have any medication questions and you have a fever Diet: Heart Healthy Addtl Provider Instructions: Ms. Ortez, otoniel were admitted to [facility] due to feeling short of breath and coughing. Your labs indicated that you had an infection, however your chest x-ray and CT scan of your lungs did not show a pneumonia. You were treated with steroids and antibiotics. Your symptoms are likely secondary to a bronchitis, and we will continue treatment with an antibiotic and a steroid taper. We recommend that you continue using your inhaler as needed - you may have improved symptom relief with the use of a spacer. We have also prescribed a nebulizer for you to use. Please follow-up with your primary care doctor. As you improve, it may be a good idea to get some lung function test to assess the baseline function of your lungs. It can take up to a month before your cough fully resolves, however, if you experience a change in your symptoms, including high fever, shortness of breath , worsening chest pain, please call your doctor. Prescriptions: New methylprednisolone 4 mg tablet 4 mg PO UD 10 Days Qty: 60 RF: 0 azithromycin 250 mg tablet 250 mg PO DAILY 4 Days Qty: 4 RF: 0 albuterol sulfate 2.5 mg /3 mL (0.083 %) solution for nebulization 1.25 mg INH TID PRN (Reason: bronchospasm) 30 Days Qty: 75 RF: 3 Continue multivitamin [Multiple Vitamins] Tablet 1 tab PO DAILY RF: 0 clobetasol 0.05 % cream 1 applic topical BID PRN (Reason: Rash) RF: 0 omeprazole 40 mg capsule,delayed release(DR/EC) 40 mg PO QAM RF: 0 lisinopril 10 mg tablet 10 mg PO DAILY RF: 0 nitroglycerin 0.4 mg tablet, sublingual 0.4 mg Sublingual UD PRN (Reason: Chest Pain) RF: 0 gabapentin 300 mg capsule 300 mg PO TID RF: 0 solifenacin 5 mg tablet 5 mg PO DAILY RF: 0 ferrous sulfate 325 mg (65 mg iron) Tablet 325 mg PO DAILY RF: 0 albuterol sulfate 90 mcg/actuation Hfa Aerosol Inhaler 2 puff INHALATION Q6H PRN (Reason: Shortness Of Breath Or Wheezing) RF: 0 rivaroxaban [Xarelto] 20 mg Tablet 20 mg PO PM RF: 0 fluticasone [Flonase Allergy Relief] 50 mcg/actuation [place],Suspension 2 spray INTRANASAL BID RF: 0 Home Oxygen 1 device UD RF: 0 diltiazem HCl 120 mg Capsule,Extended Release 24 Hr 120 mg PO DAILY RF: 0 Stand-Alone Forms: [facility] Discharge Orders: Discharge Order (Routine); Ordered 06/14/18 Ordered By: Holger Thomason Admission Data Admit Date/Time: 06/13/18 04:59 Attending Provider: Emmanuel Segal Admit Provider: Shante Malone Primary Care Provider: Christian Wood Other Providers: [place] Vázquez Service: Medical Other Interventions: Discharge Summary Assessment (RN) Last Done: 06/14/18 11:35 DC Date/Time DO NOT enter until pt leaves facility: 06/14/18 13:00 Supervising Physician Co-Signing Physician Notes I personally examined the patient and verified all mike points of history and exam, discussed case, and agree with decision making with Dr Thomason Feeling better overall, feels up to going home, daughter present and updated her on the patient's situation with patient's permission Vitals noted, in general she is awake alert oriented x3 fatigued but no acute distress, breathing unlabored no accessory muscle use good effort Bronchitisthis appears to be multifactorial, most likely a viral etiology initially, but then the added duration certainly begs a question of bacterial overgrowth, and then her exposure to fumes on the cruise ship certainly begs the question of an irritant picture as well. She is improving, I discussed that we will probably take a good month for her to really feel good is new, but she is definitely stable for home on Zithromax and steroids. Resident Activity Tracking Resident Involvement: Resident Care Provided Care Provided: Adult Hospital Medicine
[2018-06-13] MEDS ORDERED: RIVAROXABAN 20 MG TAB PO SCH (21:00)
[2018-06-13] MEDS ORDERED: VANCOMYCIN CONSULT ACTIVE PRN (21:15)
[2018-06-13] MEDS ORDERED: VANCOMYCIN HCL 2,250 MG in SODIUM CHLORIDE 0.9% 500 ML IV ONE (21:45)
--- NOTE | 2018-06-13 21:48 | Pharmacy Report ---
Pharmacy Abx Initial Consult - Date of Service June 13, 2018 - Pharmacy Dosing Scope Date of Consult: 06/13/17 Consultation requested by: Dr. Malone Pharmacy is consulted to initiate vancomycin IV dosing therapy, order appropriate labs and adjust drug dose/frequency. - Subjective The patient is a 63 year old F admitted on 06/13/18 04:59. - Objective Height: 5 ft 2 in Weight: 98.9 kg Vital Signs (Past 12hrs): Vital Signs Temp Pulse Pulse Resp BP Pulse Ox 06/13/18 12:19 36.8 C 88 78 16 135/82 97 Lab Results (24hrs): Laboratory Tests (24 Hours) 06/13/18 06/13/18 00:10 00:10 WBC 14.58 H Neut # (Auto) 10.95 H Creatinine 0.71 Est Cr Clr Drug Dosing 92.3 Micro Results: 06/12/18 23:57 Blood Culture - Pending Blood - Assessment & Plan Assessment 63 year old F admitted with hypoxia, bronchospasm, and leukocytosis. Vancomycin IV started for 1/2 BC growing gram positive cocci. Plan Vancomycin IV for possible GPC bacteremia * Estimated PK Parameters: Erwin 0.08 hr-1, t1/2 8.7 hr * Loading dose: 2250 mg (23 mg/kg) * Maintenance dose: 1250 mg IV (12.6 mg/kg) every 12 hours * Goal trough level for bacteremia : 15 to 20 mcg/mL * Trough level will be ordered if vancomycin is continued beyond 48 hours * A less than traditional dose and extended dosing interval have been selected due to likelihood of drug accumulation in obese patient. Pharmacy will continue to follow and will adjust dose/frequency as necessary. Thank you.
[2018-06-14] MEDS ORDERED: AZITHROMYCIN 250 MG TAB PO ONE (06:46)
[2018-06-14] MEDS: BUDESONIDE 0.5 MG/2 ML VIAL (PULMICORT) NEB SCH (07:15)
[2018-06-14] MEDS: FLUTICASONE PROPIONATE NA SPR 16 GM BTL SCH (07:38)
[2018-06-14] MEDS: methylPREDNISolone 4 MG TAB PO SCH (07:39)
[2018-06-14] MEDS: FERROUS SULFATE 325 MG TAB PO SCH (07:39)
[2018-06-14] MEDS: PANTOprazole 40 MG TAB PO SCH (07:39)
[2018-06-14] MEDS: MULTIVITAMIN TAB PO SCH (07:40)
[2018-06-14] MEDS: LISINOPRIL 10 MG TAB PO SCH (07:40)
[2018-06-14] MEDS: dilTIAZem ER 120 MG CAPCR PO SCH (07:40)
[2018-06-14] MEDS: GABAPENTIN 300 MG CAP PO SCH (07:40)
[2018-06-14] MEDS ORDERED: VANCOMYCIN HCL 1,250 MG in SODIUM CHLORIDE 0.9% 250 ML IV SCH (08:00)
[2018-06-14 08:15] LABS: Creatinine Clr Calc Pharmacy 99.9 ml/min; Est GFR (African American) 111.1; Est GFR (Non-African American) 95.8
--- NOTE | 2018-06-14 11:11 | Family Medicine Progress Note ---
Date of Service June 13, 2018 Assessment & Plan (1) Hypoxia: Ms. Ortez is a 63 year old female with a past medical hx of CAD, paroxysmal A. fib, hypertension who presents with a 1 month history of fatigue, SOB and wheezing on exertion, dry cough, with a 3-day history of worsening symptoms, including worsening shortness of breath, dry cough, myalgias, headache , chest pressure, weakness and malaise. In the ED she was found to be briefly hypoxic 88% on room air. Labs remarkable for slightly elevated white count 14.58, BMP normal, troponin negative. Lactate 1.7. Flu negative. Chest x-ray was suspicious for pneumonia. Hospitalist service ordered chest CT without contrast which showed atelectasis. She was given a DuoNeb, 10 mg Decadron, Hycodan, 1 L of fluids, Tylenol, 1 dose of Levaquin. Hypoxia, in setting of bronchospasm and bronchitis - CXR and CT of thorax did not reveal pneumonia/mass - patient seen and examined at bedside in morning and again in afternoon. Reporting improvement in symptoms. Lung examination -> clear bilaterally w/ occasional expiratory wheeze - elevated WCC to 14.58 w/neutrophilic predominance - treated w/pulmicort Respules and Methylprednisolone. Patient did receive levaquin in ED. - symptoms likely secondary to bronchitis, however given duration >1 month, will treat w/z-pack and tapering dose of methylprednisone - patient required oxygen only transiently for a drop in O2 sats to 88% briefly -> she was able to be weaned off oxygen by the time I examined her - pt stable for discharge (2) HTN (hypertension): (3) PAF (paroxysmal atrial fibrillation): (4) CAD (coronary artery disease): (5) GERD (gastroesophageal reflux disease): (6) Bronchospasm with bronchitis, acute: Supervising Physician Co-Signing Physician Notes I personally examined the patient and verified all mike points of history and exam, discussed case, and agree with decision making with Dr Thomason Feeling better overall, coughing and short of breath with dyspnea on exertion noted. 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 She does seem to be improving continue steroids and Zithromax, home once she is able to Physical Exam 2 Vital Signs (Past 24 Hours): Last Vital Signs Temp 37.0 C 06/14/18 07:30 Pulse 77 06/14/18 07:30 Resp 20 06/14/18 07:30 BP 149/76 H 06/14/18 07:30 Pulse Ox 97 06/14/18 07:30 Constitutional: WD/WN, vitals as above + well hydrated and + obese Respiratory: normal respiratory effort, + cough and able to speak in complete sentences; no respiratory distress, no labored breathing and does not use accessory muscles Auscultation: + diminished lung sounds; no crackles Cardiovascular: RRR, no murmur, no edema Gastrointestinal (Abdomen): Percussion/Palpation: abdomen soft; abdomen nontender, no guarding and abdomen not rigid Skin: no rashes, warm and dry Resident Activity Tracking Resident Involvement: Resident Care Provided Care Provided: Adult Hospital Medicine
== END 2018-06-14 13:00 | disposition home or self-care (01) | DRG 203 ==
LOC: ED 23:44 → SUATTDRO 06-13 04:59 → 4E 06-13 04:59

== ENCOUNTER 2020-10-15 16:35 | Inpatient (IN) ==
[2020-10-15 17:23] LABS: Basophils # (auto) 0.02 K/uL (0-0.2); Basophils % (auto) 0.4 %; Eosinophils # (auto) 0.01 K/uL (0-0.5); Eosinophils % (auto) 0.2 %; Hematocrit (blood only) 37.5 % (37-47); Immature Granulocytes # (auto) 0.02 K/uL (0.00-0.02); Immature Granulocytes % (auto) 0.4 %; Lymphocytes % (auto) 28.7 %; Mean Corpuscular Hemoglobin 27.4 pg (25-34); Mean Corpuscular Volume 85.6 fL (80-100); Mean Platelet Volume 9.8 fL (7.4-10.4); Monocytes # (auto) 0.46 K/uL (0.11-0.59); Monocytes % (auto) 10.2 %; Neutrophils # (auto) 2.72 K/uL (1.4-6.5); Neutrophils % (auto) 60.1 %; Platelet Count 201 K/uL (130-400); RDW Coefficient of Variation 13.2 % (11.5-14.5); RDW Standard Deviation 41.5 fL (36.4-46.3); Red Blood Count 4.38 M/uL (4.2-5.4); White Blood Count 4.53 K/uL (4.8-10.8)
[2020-10-15 17:24] LABS: Appearance Urine Clear (Clear); Bacteria Urine Automated Negative (Negative); Bilirubin Urine Negative (Negative); Blood Urine 2+ (Negative); Color Urine Dark Yellow; Epithelial Cell Urine Auto >30 /lpf (0-5); Glucose Urine UA Negative (Negative); Ketones Urine Trace (Negative); Leukocyte Esterase Urine Negative (Negative); Nitrite Urine Negative (Negative); Protein Urine Negative (Negative); RBC Urine Automated 0-4 /hpf (0-4); Specific Gravity Urine 1.023 (1.000-1.030); Urobilinogen Urine Negative (Negative)
[2020-10-15] MEDS ORDERED: ONDANSETRON INJ 2 MG/ML 2 ML VIAL IV STA ×2 (17:42→21:49)
[2020-10-15] MEDS ORDERED: SODIUM CHLORIDE 0.9% 1000ML 1,000 ML IV ONE ×2 (17:42→19:07)
[2020-10-15] MEDS ORDERED: FAMOTIDINE 20MG/5ML IV PUSH IV STA (17:42)
[2020-10-15] MEDS ORDERED: ACETAMINOPHEN 1,000 MG/100 ML VIAL IV STA (17:46)
--- NOTE | 2020-10-15 17:50 | Emergency Department Note ---
History of Present Illness General Chief complaint: Illness Time Seen by Provider: 10/15/20 17:36 Source: patient Mode of arrival: ambulatory Limitations: no limitations History of Present Illness Provider complaint: Multiple complaints Onset (ago): day(s) 3 Location: head, chest and abdomen Radiation: back and extremity Severity: moderate Pain Consistency: + colicky Maximum Pain Intensity: 6 Relieved By: + none Exacerbated By: + none Associated symptoms: + fever/chills, + headaches, + loss of appetite, + malaise, + nausea/vomiting and + weakness; no shortness of breath Treatments prior to arrival: none Is a 65-year-old female presents emergency department with multiple complaints. Patient states on Tuesday morning she began developing fatigue, nausea, vomiting, and diarrhea. She denies any blood in the emesis or stool. Patient states symptoms have persisted and she has been unable to keep anything down over the last 3 days. No recent known sick contact, no recent change in diet or medications. Patient does have significant cardiac history. Patient is not anticoagulated. Patient states she has been feeling more fatigued, weak, and lightheaded. States today she developed temperature of greater than 101. States this afternoon while vomiting she developed a sharp pain in the left side of her chest. Some radiation into the back and arm. Due to her cardiac history she presented the emergency department. Patient states pain is slightly dull at this point although still present. States she has generalized abdominal discomfort which began after the vomiting and diarrhea. No significant abdominal distention. Patient denies any syncopal events despite feeling lightheaded and weak. Patient has previously had coronavirus already. Has not had her vaccination since then. Patient states chest pain today was not similar to prior heart attacks or episode of atrial fibrillation. Patient is not currently on chronic anticoagulation. She does follow with Dr. Cheema. Pt seen during a time of high acuity and national emergency pandemic while wearing PPE. Home Medications Medication Instructions Recorded Confirmed Type albuterol sulfate 2 puff INHALATION Q6H PRN 06/13/18 10/15/20 History clobetasol 1 applic TOPICAL BID PRN 06/13/18 10/15/20 History diltiazem HCl 120 mg PO DAILY 06/13/18 10/15/20 History fluticasone propionate [Flonase 2 spray INTRANASAL BID 06/13/18 10/15/20 History Allergy Relief] lisinopril 20 mg PO DAILY 06/13/18 10/15/20 History multivitamin [Multiple Vitamins] 1 tab PO DAILY 06/13/18 10/15/20 History nitroglycerin 0.4 mg SUBLINGUAL UD PRN 06/13/18 10/15/20 History omeprazole 40 mg PO QAM 06/13/18 10/15/20 History albuterol sulfate 2.5 mg CONTINUOUS NEBULIZATION TID 10/15/20 10/15/20 History PRN calcium carb-D3-mag ox-zinc ox 1 tab PO DAILY 10/15/20 10/15/20 History cholecalciferol (vitamin D3) 150 mcg PO DAILY 10/15/20 10/15/20 History [Vitamin D3] diphenhydramine HCl 50 mg PO HS PRN 10/15/20 10/15/20 History guaifenesin [Mucinex] 600 mg PO DAILY 10/15/20 10/15/20 History hydrochlorothiazide 12.5 mg PO DAILY 10/15/20 10/15/20 History omega-3 fatty acids [[place] 3] 1,000 mg PO DAILY 10/15/20 10/15/20 History Allergies Allergy/AdvReac Type Severity Reaction Status Date / Time Sulfa (Sulfonamide Allergy Intermediate METAL Verified 10/15/20 20:36 Antibiotics) TASTE IN MOUTH, TONGUE SWELLS UP latex Allergy Unknown RASH Verified 10/15/20 20:36 Past Med/Surg History Medical History (Updated 10/17/20 @ 01:00 by Jessica Mobley DO) CAD (coronary artery disease) GERD (gastroesophageal reflux disease) HTN (hypertension) Migraine PAF (paroxysmal atrial fibrillation) Social History Smoking Status: Never smoker Hx Alcohol Use: Yes Alcohol type: beer Hx Substance Use: No Preferred Language: Haitian Communication Ability: Effective Woods Manager Required: No Beliefs That Will Affect Care: None Current Living Situation: Alone Other Information That Helps Us Care for You: No Feels Safe at Home: Yes Safety Concerns: Feels Safe At This Time Assistive Devices: None Review of Systems See HPI for pertinent positives & negatives. and A total of 10 systems reviewed and were otherwise negative Physical Exam Vital Signs Vital Signs - 24 hr 10/15/20 16:42 10/15/20 16:48 10/15/20 16:52 Temperature 38.8 C H Temperature Source Oral Pulse Rate 80 76 76 Pulse Rate from SpO2 Sensor 76 76 Respiratory Rate 18 10 L 14 Respiratory Effort / Characteristics Non-Labored Respiratory Depth Normal Respiratory Pattern Regular Blood Pressure 137/67 137/67 Blood Pressure Mean 90 90 Blood Pressure Position Lying Pulse Oximetry 99 93 93 Oxygen Delivery Method Room Air Sepsis Recent Fever Within 48 Hours Yes Sepsis New/Unexplained Change in Mental Status N/A Sepsis Action Taken by Nursing No Action Required 10/15/20 17:00 10/15/20 17:10 10/15/20 17:30 Temperature Temperature Source Pulse Rate 79 77 77 Pulse Rate from SpO2 Sensor 80 77 77 Respiratory Rate 22 14 16 Respiratory Effort / Characteristics Respiratory Depth Respiratory Pattern Blood Pressure Blood Pressure Mean Blood Pressure Position Pulse Oximetry 92 92 90 Oxygen Delivery Method Sepsis Recent Fever Within 48 Hours Sepsis New/Unexplained Change in Mental Status Sepsis Action Taken by Nursing 10/15/20 17:40 10/15/20 17:50 10/15/20 18:00 Temperature Temperature Source Pulse Rate 80 77 75 Pulse Rate from SpO2 Sensor 78 78 Respiratory Rate 23 25 H 14 Respiratory Effort / Characteristics Respiratory Depth Respiratory Pattern Blood Pressure Blood Pressure Mean Blood Pressure Position Pulse Oximetry 95 94 Oxygen Delivery Method Sepsis Recent Fever Within 48 Hours Sepsis New/Unexplained Change in Mental Status Sepsis Action Taken by Nursing 10/15/20 18:10 10/15/20 19:01 10/15/20 21:39 Temperature 38.3 C H 37 C Temperature Source Oral Oral Pulse Rate 74 Pulse Rate from SpO2 Sensor Respiratory Rate 19 Respiratory Effort / Characteristics Respiratory Depth Respiratory Pattern Blood Pressure Blood Pressure Mean Blood Pressure Position Pulse Oximetry Oxygen Delivery Method Sepsis Recent Fever Within 48 Hours Sepsis New/Unexplained Change in Mental Status Sepsis Action Taken by Nursing GENERAL: alert, ill appearing, well nourished, no distress, non-toxic EYE EXAM: normal conjunctiva, PERRL and EOM's grossly intact OROPHARYNX: no exudate, no erythema, lips, buccal mucosa, and tongue normal and mucous membranes are moist NECK: supple, no nuchal rigidity, no adenopathy, non-tender LUNGS: Clear to auscultation. Normal chest wall mechanics, no w/r/r HEART: no murmurs, S1 normal and S2 normal ABDOMEN: abdomen soft, generalized abdominal tenderness, normo-active bowel sounds, no masses, no rebound or guarding. BACK: Back is symmetrical on inspection and there is no deformity, no midline tenderness, no CVA tenderness. SKIN: no rashes and no bruising UPPER EXTREMITIES: upper extremities are grossly normal. FROM, nml pulses b/l. LOWER EXTREMITIES: No pitting edema. FROM, nml pulses b/l. NEURO EXAM: Normal sensorium, cranial nerves II-XII grossly intact, normal speech, no gross weakness of arms, no gross weakness of legs. Gross sensation intact. Course Course 1901: Patient states chest pain is now an ache, still with generalized abdominal discomfort. Updated on results thus far. Second liter of IV fluids hung. 2016: Patient resting, vital signs stable. 2155: Patient states still nauseated, has not felt well after attempting p.o. challenge. Does still feel weak and dizzy upon standing to use the restroom. Given the patient was low and she is not comfortable going home at this time. 2208: Case staffed with Dr. Nunez. Administered Medications Acetaminophen (Acetaminophen 325 Mg Tab) 650 mg PO Q4H PRN PRN Reason: pain or fever Stop: 11/15/20 03:27 Last Admin: 10/16/20 15:27 Dose: 650 mg Documented by: [id number] Admin: 10/16/20 03:53 Dose: 650 mg Documented by: [id number] Diltiazem HCl (Diltiazem Er 120 Mg Capcr) 120 mg PO DAILY [facility] Stop: 11/15/20 08:59 Last Admin: 10/16/20 08:24 Dose: 120 mg Documented by: [id number] Enoxaparin Sodium (Enoxaparin Inj 40 Mg/0.4 Ml Syr) 40 mg SQ Q12H [facility] Stop: 11/15/20 00:00 Last Admin: 10/17/20 00:49 Dose: 40 mg Documented by: [id number] Admin: 10/16/20 12:26 Dose: 40 mg Documented by: [id number] Admin: 10/16/20 00:36 Dose: 40 mg Documented by: [id number] Famotidine (Famotidine 40 Mg Tablet) 40 mg PO QAM [facility] Stop: 11/15/20 08:59 Last Admin: 10/16/20 08:24 Dose: 40 mg Documented by: [id number] Fluticasone Propionate (Fluticasone Propionate Na Spr 16 Gm Btl) 2 sprays NA BID [facility] Stop: 11/15/20 08:59 Last Admin: 10/16/20 21:16 Dose: 2 sprays Documented by: [id number] Admin: 10/16/20 08:23 Dose: 2 sprays Documented by: [id number] Guaifenesin (Guaifenesin 600 Mg Tabcr) 600 mg PO DAILY [facility] Stop: 11/15/20 08:59 Last Admin: 10/16/20 08:24 Dose: 600 mg Documented by: [id number] Ibuprofen (Ibuprofen 200 Mg Tab) 400 mg PO QID PRN PRN Reason: Pain or Fever Stop: 11/15/20 06:11 Last Admin: 10/16/20 21:24 Dose: 400 mg Documented by: [id number] Admin: 10/16/20 06:27 Dose: 400 mg Documented by: [id number] Lisinopril (Lisinopril 20 Mg Tab) 20 mg PO DAILY [facility] Stop: 11/15/20 08:59 Last Admin: 10/16/20 08:24 Dose: 20 mg Documented by: [id number] Ondansetron HCl (Ondansetron Inj 2 Mg/Ml 2 Ml Vial) 4 mg IV Q6H PRN PRN Reason: Nausea And Vomiting Stop: 11/14/20 23:09 Last Admin: 10/16/20 15:27 Dose: 4 mg Documented by: [id number] Admin: 10/16/20 09:27 Dose: 4 mg Documented by: [id number] Discontinued Medications Famotidine (Famotidine 20mg/5ml Iv Push) 20 mg IV ONE STA Stop: 10/15/20 17:43 Last Admin: 10/15/20 17:52 Dose: 20 mg Documented by: [id number] Sodium Chloride (Nss 1000ml) 1,000 mls @ 999 mls/hr IV .Q1H1M ONE Stop: 10/15/20 18:42 Last Infusion: 10/15/20 19:01 Dose: 999 mls/hr Documented by: [id number] Admin: 10/15/20 17:52 Dose: 999 mls/hr Documented by: [id number] Acetaminophen (Ofirmev) 1,000 mg in 100 mls @ 400 mls/hr IV NOW STA Stop: 10/15/20 18:00 Last Infusion: 10/15/20 18:10 Dose: 400 mls/hr Documented by: [id number] Admin: 10/15/20 17:52 Dose: 400 mls/hr Documented by: [id number] Sodium Chloride (Nss 1000ml) 1,000 mls @ 999 mls/hr IV .Q1H1M ONE Stop: 10/15/20 20:07 Last Infusion: 10/15/20 20:23 Dose: 999 mls/hr Documented by: [id number] Admin: 10/15/20 19:13 Dose: 999 mls/hr Documented by: [id number] Sodium Chloride (Nss 1000ml) 1,000 mls @ 125 mls/hr IV .Q8H [facility] Stop: 11/14/20 21:59 Last Infusion: 10/15/20 23:24 Dose: 0 mls/hr Documented by: [id number] Admin: 10/15/20 21:54 Dose: 125 mls/hr Documented by: [id number] Lactated Ringer's (Lr) 1,000 mls @ 125 mls/hr IV .Q8H [facility] Stop: 10/16/20 07:29 Last Infusion: 10/16/20 07:55 Dose: 0 mls/hr Documented by: [id number] Admin: 10/15/20 23:55 Dose: 125 mls/hr Documented by: [id number] Ioversol (Optiray 320 150ml) 97 ml IV ONCE ONE Stop: 10/15/20 20:00 Last Admin: 10/15/20 19:59 Dose: 97 ml Documented by: [id number] Ketorolac Tromethamine (Ketorolac Tromethamine 15 Mg/Ml Vial) 10 mg IV NOW ONE Stop: 10/15/20 19:37 Last Admin: 10/15/20 20:06 Dose: 10 mg Documented by: [id number] Ondansetron HCl (Ondansetron Inj 2 Mg/Ml 2 Ml Vial) 4 mg IV NOW STA Stop: 10/15/20 17:43 Last Admin: 10/15/20 17:52 Dose: 4 mg Documented by: [id number] Ondansetron HCl (Ondansetron Inj 2 Mg/Ml 2 Ml Vial) 4 mg IV NOW STA Stop: 10/15/20 21:50 Last Admin: 10/15/20 21:53 Dose: 4 mg Documented by: [id number] Medical Decision Making Differential Diagnosis Differential: Gastroenteritis, Food Borne, Esophageal Perforation, , Electrolyte Abnormality, Dehydration, Intraabdominal Infection, UTI/Pyelonephritis, Bowel Obstruction, Biliary Pathology, amongst other pathology entertained. Medical Records Attestation: I reviewed the patient's medical records. Home Medications Current Medication List: was personally reviewed by me Laboratory Data Attestation: I reviewed the patient's lab results. Result diagrams: 10/16/20 18:40 10/16/20 18:40 Lab Results 10/15/20 10/15/20 10/15/20 Range/Units 16:48 16:48 16:48 WBC (4.8-10.8) K/uL RBC (4.2-5.4) M/uL Hgb (12.0-16.0) g/dL Hct (37-47) % MCV (80-100) fL MCH (25-34) pg MCHC (32-36) g/dL RDW Std Deviation (36.4-46.3) fL RDW Coeff of Emma (11.5-14.5) % Plt Count (130-400) K/uL MPV (7.4-10.4) fL Immature Gran % (Auto) % Neut % (Auto) % Lymph % (Auto) % [place] % (Auto) % Eos % (Auto) % Baso % (Auto) % Neut # (Auto) (1.4-6.5) K/uL Lymph # (Auto) (1.2-3.4) K/uL [place] # (Auto) (0.11-0.59) K/uL Eos # (Auto) (0-0.5) K/uL Baso # (Auto) (0-0.2) K/uL Immature Gran # (Auto) (0.00-0.02) K/uL Sodium (136-145) mmol/L Potassium (3.5-5.1) mmol/L Chloride (98-107) mmol/L Carbon Dioxide (21-32) mmol/L Anion Gap (3-11) BUN (7-18) mg/dl Creatinine (0.6-1.2) mg/dl Est Cr Clr Drug Dosing ml/min Est GFR ( Amer) ml/min Est GFR (Non-Af Amer) ml/min BUN/Creatinine Ratio (10-20) Glucose (70-99) mg/dl Calcium (8.5-10.1) mg/dl Total Bilirubin (0.2-1) mg/dl AST (15-37) U/L ALT (12-78) U/L Alkaline Phosphatase (45-117) U/L Troponin I (0-0.045) ng/ml Total Protein (6.4-8.2) gm/dl Albumin (3.4-5.0) gm/dl Globulin (2.5-4.0) gm/dl Albumin/Globulin Ratio (0.9-2) Lipase (73-393) U/L Procalcitonin (0-0.5) ng/ml Urine Color Dark Yellow Urine Appearance Clear (Clear) Urine pH 5.0 (4.5-7.5) Ur Specific [place] 1.023 (1.000-1.030) Urine Protein Negative (Negative) Urine Glucose (UA) Negative (Negative) Urine Ketones Trace H (Negative) Urine Blood 2+ H (Negative) Urine Nitrite Negative (Negative) Urine Bilirubin Negative (Negative) Urine Urobilinogen Negative (Negative) Ur Leukocyte Esterase Negative (Negative) Urine WBC (Auto) 1-5 (0-5) /hpf Urine RBC (Auto) 0-4 (0-4) /hpf U Hyaline Cast (Auto) 1-5 (0-5) /lpf U Epithel Cells (Auto) >30 H (0-5) /lpf Urine Bacteria (Auto) Negative (Negative) Lyme Disease IgG Ab (Negative) Lyme Disease IgM Ab (Negative) COVID-19 Eval Order Covid19 at [facility] SARS-CoV-2 (PCR) NEGATIVE (Negative) 10/15/20 10/15/20 10/15/20 Range/Units 17:07 17:07 18:12 WBC 4.53 L (4.8-10.8) K/uL RBC 4.38 (4.2-5.4) M/uL Hgb 12.0 (12.0-16.0) g/dL Hct 37.5 (37-47) % MCV 85.6 (80-100) fL MCH 27.4 (25-34) pg MCHC 32.0 (32-36) g/dL RDW Std Deviation 41.5 (36.4-46.3) fL RDW Coeff of Emma 13.2 (11.5-14.5) % Plt Count 201 (130-400) K/uL MPV 9.8 (7.4-10.4) fL Immature Gran % (Auto) 0.4 % Neut % (Auto) 60.1 % Lymph % (Auto) 28.7 % [place] % (Auto) 10.2 % Eos % (Auto) 0.2 % Baso % (Auto) 0.4 % Neut # (Auto) 2.72 (1.4-6.5) K/uL Lymph # (Auto) 1.30 (1.2-3.4) K/uL [place] # (Auto) 0.46 (0.11-0.59) K/uL Eos # (Auto) 0.01 (0-0.5) K/uL Baso # (Auto) 0.02 (0-0.2) K/uL Immature Gran # (Auto) 0.02 (0.00-0.02) K/uL Sodium 140 (136-145) mmol/L Potassium 4.2 (3.5-5.1) mmol/L Chloride 105 (98-107) mmol/L Carbon Dioxide 25 (21-32) mmol/L Anion Gap 10.0 (3-11) BUN 11 (7-18) mg/dl Creatinine 0.74 (0.6-1.2) mg/dl Est Cr Clr Drug Dosing 87.3 ml/min Est GFR ( Amer) 99.9 ml/min Est GFR (Non-Af Amer) 86.2 ml/min BUN/Creatinine Ratio 15.4 (10-20) Glucose 102 H (70-99) mg/dl Calcium 8.9 (8.5-10.1) mg/dl Total Bilirubin 0.4 (0.2-1) mg/dl AST 38 H (15-37) U/L ALT 38 (12-78) U/L Alkaline Phosphatase 61 (45-117) U/L Troponin I < 0.015 (0-0.045) ng/ml Total Protein 7.9 (6.4-8.2) gm/dl Albumin 3.6 (3.4-5.0) gm/dl Globulin 4.3 H (2.5-4.0) gm/dl Albumin/Globulin Ratio 0.8 L (0.9-2) Lipase 164 (73-393) U/L Procalcitonin (0-0.5) ng/ml Urine Color Urine Appearance (Clear) Urine pH (4.5-7.5) Ur Specific [place] (1.000-1.030) Urine Protein (Negative) Urine Glucose (UA) (Negative) Urine Ketones (Negative) Urine Blood (Negative) Urine Nitrite (Negative) Urine Bilirubin (Negative) Urine Urobilinogen (Negative) Ur Leukocyte Esterase (Negative) Urine WBC (Auto) (0-5) /hpf Urine RBC (Auto) (0-4) /hpf U Hyaline Cast (Auto) (0-5) /lpf U Epithel Cells (Auto) (0-5) /lpf Urine Bacteria (Auto) (Negative) Lyme Disease IgG Ab (Negative) Lyme Disease IgM Ab (Negative) COVID-19 Eval Order SARS-CoV-2 (PCR) (Negative) 10/15/20 Range/Units 18:12 WBC (4.8-10.8) K/uL RBC (4.2-5.4) M/uL Hgb (12.0-16.0) g/dL Hct (37-47) % MCV (80-100) fL MCH (25-34) pg MCHC (32-36) g/dL RDW Std Deviation (36.4-46.3) fL RDW Coeff of Emma (11.5-14.5) % Plt Count (130-400) K/uL MPV (7.4-10.4) fL Immature Gran % (Auto) % Neut % (Auto) % Lymph % (Auto) % [place] % (Auto) % Eos % (Auto) % Baso % (Auto) % Neut # (Auto) (1.4-6.5) K/uL Lymph # (Auto) (1.2-3.4) K/uL [place] # (Auto) (0.11-0.59) K/uL Eos # (Auto) (0-0.5) K/uL Baso # (Auto) (0-0.2) K/uL Immature Gran # (Auto) (0.00-0.02) K/uL Sodium (136-145) mmol/L Potassium (3.5-5.1) mmol/L Chloride (98-107) mmol/L Carbon Dioxide (21-32) mmol/L Anion Gap (3-11) BUN (7-18) mg/dl Creatinine (0.6-1.2) mg/dl Est Cr Clr Drug Dosing ml/min Est GFR ( Amer) ml/min Est GFR (Non-Af Amer) ml/min BUN/Creatinine Ratio (10-20) Glucose (70-99) mg/dl Calcium (8.5-10.1) mg/dl Total Bilirubin (0.2-1) mg/dl AST (15-37) U/L ALT (12-78) U/L Alkaline Phosphatase (45-117) U/L Troponin I (0-0.045) ng/ml Total Protein (6.4-8.2) gm/dl Albumin (3.4-5.0) gm/dl Globulin (2.5-4.0) gm/dl Albumin/Globulin Ratio (0.9-2) Lipase (73-393) U/L Procalcitonin 0.18 (0-0.5) ng/ml Urine Color Urine Appearance (Clear) Urine pH (4.5-7.5) Ur Specific [place] (1.000-1.030) Urine Protein (Negative) Urine Glucose (UA) (Negative) Urine Ketones (Negative) Urine Blood (Negative) Urine Nitrite (Negative) Urine Bilirubin (Negative) Urine Urobilinogen (Negative) Ur Leukocyte Esterase (Negative) Urine WBC (Auto) (0-5) /hpf Urine RBC (Auto) (0-4) /hpf U Hyaline Cast (Auto) (0-5) /lpf U Epithel Cells (Auto) (0-5) /lpf Urine Bacteria (Auto) (Negative) Lyme Disease IgG Ab Negative (Negative) Lyme Disease IgM Ab Negative (Negative) COVID-19 Eval Order SARS-CoV-2 (PCR) (Negative) Imaging Data Radiologist's Impression: Chest X-Ray 10/15/20 17:42 XR chest 1V portable, XR KUB/Abdomen 1 view HISTORY: 65 years-old Female fever acute fever abdominal pain COMPARISON: Chest CT and chest radiograph 06/13/2018 TECHNIQUE: Portable AP view the chest with KUB radiograph FINDINGS: CHEST: Cardiomegaly. Loop recorder device. No pneumothorax, pleural effusion, airspace consolidation or overt pulmonary edema. Mild chronic interstitial coarsening of the lung bases. Degenerative changes of the shoulders and spine. KUB: No pneumatosis or pneumoperitoneum. Nonobstructive bowel gas pattern. No urolith identified. Pelvic basin calcifications are likely vascular. No acute fracture. IMPRESSION: 1. Cardiomegaly without acute intrathoracic abnormality. 2. Nonobstructive bowel gas pattern. ACT 112: Negative or not required by law. The above report was generated using voice recognition software. It may contain grammatical, syntax or spelling errors. Electronically signed by: Santy Laws M.D. 10/15/2020 7:[address] 10/15/20 17:42 CT head/brain wo con CLINICAL HISTORY: 65 years-old Female with headache, vomiting. Acute headache with vomiting TECHNIQUE: Multiple axial CT images of the head were obtained without contrast. A dose lowering technique was utilized adhering to the principles of ALARA. CT DOSE: 614.27 mGy.cm COMPARISON: 04/24/2014. FINDINGS: No acute intracranial hemorrhage, midline shift, intracranial mass, hydrocephalus, territorial ischemia or abnormal extra-axial collection. The calvarium is intact. Prior bilateral lens repair. The paranasal sinuses, mastoid air cells, and middle ear cavities are clear. IMPRESSION: No acute intracranial abnormality. ACT 112: Negative or not required by law. The above report was generated using voice recognition software. It may contain grammatical, syntax or spelling errors. Electronically signed by: Santy Laws M.D. 10/15/2020 6:50 PM KUB X-Ray 10/15/20 17:42 XR chest 1V portable, XR KUB/Abdomen 1 view HISTORY: 65 years-old Female fever acute fever abdominal pain COMPARISON: Chest CT and chest radiograph 06/13/2018 TECHNIQUE: Portable AP view the chest with KUB radiograph FINDINGS: CHEST: Cardiomegaly. Loop recorder device. No pneumothorax, pleural effusion, airspace consolidation or overt pulmonary edema. Mild chronic interstitial coarsening of the lung bases. Degenerative changes of the shoulders and spine. KUB: No pneumatosis or pneumoperitoneum. Nonobstructive bowel gas pattern. No urolith identified. Pelvic basin calcifications are likely vascular. No acute fracture. IMPRESSION: 1. Cardiomegaly without acute intrathoracic abnormality. 2. Nonobstructive bowel gas pattern. ACT 112: Negative or not required by law. The above report was generated using voice recognition software. It may contain grammatical, syntax or spelling errors. Electronically signed by: Santy Laws M.D. 10/15/2020 7:13 PM Abdomen/Pelvis CT 10/15/20 19:[address] WITH IV CONTRAST CT DOSE: 1045.92 mGycm HISTORY: Acute nausea and vomiting with generalized abdominal pain n/v/d, abd pain TECHNIQUE: Multiaxial CT images of the abdomen and pelvis were performed following the IV administration of 97 cc of Optiray, A dose lowering technique was utilized adhering to the principles of ALARA. COMPARISON STUDY: Chest CT 06/13/2018 FINDINGS: The imaged inferior cardiac chambers are unremarkable. Coronary artery calcifications. Mild bibasilar atelectasis. No pneumatosis or pneumoperitoneum. The spleen, pancreas, gallbladder and adrenal glands are unremarkable. The liver is within normal limits. Patency of the hepatic and portal veins. Indeterminate intermediate density 8 mm lesion of the inferior pole left kidney anteriorly on image 216. 1.8 cm cyst of the anterior interpolar right kidney. Punctate nonobst ructing calculus of the inferior pole right kidney. No hydronephrosis. Decompressed urinary bladder. 1.4 cm fibroid of the left fundal uterus. Atherosclerotic plaque of the abdominal aorta. No adenopathy. Tiny hiatal hernia. No bowel obstruction or bowel wall thickening. Mild colonic diverticulosis. Noninflamed appendix. Scattered air-fluid levels throughout the large bowel. Unremarkable soft tissues. There is no acute fracture. Degenerative changes of the spine. IMPRESSION: 1. No bowel obstruction or bowel wall thickening. Normal appendix. 2. Scattered large bowel air-fluid levels suggestive of diarrheal illness. 3. Punctate right renal calculus. 4. 8 mm intermediate density lesion of the interpolar left kidney. This could be correlated with a follow-up renal ultrasound. 5. Fibroid uterus. 6. Additional findings as above. ACT 112: Negative or not required by law. The above report was generated using voice recognition software. It may contain grammatical, syntax or spelling errors. Electronically signed by: Santy Laws M.D. 10/15/2020 8:33 PM ECG Data Attestation: I personally reviewed and interpreted this ECG as follows: Indication: + vomiting Rate (beats per minute): 76 Rhythm: + normal sinus ECG Intervals/blocks: + Normal QRS and + Normal QT ECG Mora: + Normal ECG ST segments: + Normal ST segments MDM Narrative This is a 65-year-old female presents emergency department with multiple complaints and recent illness including persistent vomiting and diarrhea. Patient concern for weakness and likely dehydration in addition. Patient was hemodynamically stable here despite complaints. Labs drawn and sent and were reassuring. CT imaging performed of the patient's head due to the nausea, vomiting, and headache which was unremarkable. CT the abdomen pelvis also per formed due to GI complaints and was unremarkable also. Patient given several liters of IV fluids, and multiple doses of nausea medication and had persistent nausea on a p.o. trial with continued weakness on ambulatory trial. Given patient lives alone I do not have anyone to call for help and was continuing to have difficulty and attempts at tolerating p.o., case was discussed with hospitalist for additional evaluation and management. 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 An order was placed for continuous cardiac monitoring. The monitor shows a rate of _82 with _normal sinus_ rhythm. Patient has no family history of IBD. Patient was first seen and observation began at 1736 and was necessary in order to determine etiology of complaints, rehydrate the patient through the IV and multiple medication doses given for nausea. Upon re-evaluation, 4.5 hours of observation revealed that the patient should be admitted. Discharge from observation at 2209. Impression & Plan Nausea vomiting and diarrhea, Acute dehydration, Weakness Discharge Plan Visit Data Chief Complaint: Illness ED Provider: Jessica Mobley Discharge Problem: Nausea vomiting and diarrhea, Acute dehydration, Weakness Patient Disposition: Admitted As Inpatient Discharge Instructions Interventions: ED Discharge Assessment Last Done: 10/15/20 22:45
[2020-10-15 18:05] LABS: Albumin Globulin Ratio 0.8 (0.9-2); Albumin Level 3.6 gm/dl (3.4-5.0); BUN Creatinine Ratio 15.4 (10-20); Bilirubin,Total 0.4 mg/dl (0.2-1); Calcium 8.9 mg/dl (8.5-10.1); Creatinine Clr Calc Pharmacy 87.3 ml/min; Est GFR (African American) 99.9 ml/min; Est GFR (Non-African American) 86.2 ml/min; Globulin 4.3 gm/dl (2.5-4.0); Potassium 4.2 mmol/L (3.5-5.1); Total Protein 7.9 gm/dl (6.4-8.2)
--- NOTE | 2020-10-15 18:51 | CT Scan Report ---
CT head/brain wo con CLINICAL HISTORY: 65 years-old Female with headache, vomiting. Acute headache with vomiting TECHNIQUE: Multiple axial CT images of the head were obtained without contrast. A dose lowering tech nique was utilized adhering to the principles of ALARA. CT DOSE: 614.27 mGy.cm COMPARISON: 04/24/2014. FINDINGS: No acute intracranial hemorrhage, midline shift, intracranial mass, hydrocephalus, territorial ischem ia or abnormal extra-axial collection. The calvarium is intact. Prior bilateral lens repair. The paranasal sinuses, mastoid air cells, and m iddle ear cavities are clear. IMPRESSION: No acute intracranial abnormality. ACT 112: Negative or not required by law. The above report was generated using voice recognition software. It may contain grammatical, syntax o r spelling errors. Electronically signed by: Santy Laws M.D. 10/15/2020 6:50 PM
[2020-10-15 19:01] LABS: Lipase 164 U/L (73-393); Troponin I < 0.015 ng/ml (0-0.045)
--- NOTE | 2020-10-15 19:14 | XRay Report ---
XR chest 1V portable, XR KUB/Abdomen 1 view HISTORY: 65 years-old Female fever acute fever abdominal pain COMPARISON: Chest CT and chest radiograph 06/13/2018 TECHNIQUE: Portable AP view the chest with KUB radiograph FINDINGS: CHEST: Cardiomegaly. Loop recorder device. No pneumothorax, pleural effusion, airspace consolidation or over t pulmonary edema. Mild chronic interstitial coarsening of the lung bases. Degenerative changes of th e shoulders and spine. KUB: No pneumatosis or pneumoperitoneum. Nonobstructive bowel gas pattern. No urolith identified. Pelvic b asin calcifications are likely vascular. No acute fracture. IMPRESSION: 1. Cardiomegaly without acute intrathoracic abnormality. 2. Nonobstructive bowel gas pattern. ACT 112: Negative or not required by law. The above report was generated using voice recognition software. It may contain grammatical, syntax o r spelling errors. Electronically signed by: Santy Laws M.D. 10/15/2020 7:13 PM
[2020-10-15 19:22] LABS: Procalcitonin 0.18 ng/ml (0-0.5)
[2020-10-15 19:28] LABS: Lyme Ab IgG w/WB Rflx Negative (Negative); Lyme Ab IgM w/WB Rflx Negative (Negative)
[2020-10-15] MEDS ORDERED: KETOROLAC TROMETHAMINE 15 MG/ML VIAL IV ONE (19:36)
[2020-10-15] MEDS ORDERED: OPTIRAY 320 150ml IV ONE (19:59)
--- NOTE | 2020-10-15 20:35 | CT Scan Report ---
ABDOMEN AND PELVIS CT WITH IV CONTRAST CT DOSE: 1045.92 mGycm HISTORY: Acute nausea and vomiting with generalized abdominal pain n/v/d, abd pain TECHNIQUE: Multiaxial CT images of the abdomen and pelvis were performed following the IV administrat ion of 97 cc of Optiray, A dose lowering technique was utilized adhering to the principles of ALARA. COMPARISON STUDY: Chest CT 06/13/2018 FINDINGS: The imaged inferior cardiac chambers are unremarkable. Coronary artery calcifications. Mild bibasilar atelectasis. No pneumatosis or pneumoperitoneum. The spleen, pancreas, gallbladder and adr enal glands are unremarkable. The liver is within normal limits. Patency of the hepatic and portal ve ins. Indeterminate intermediate density 8 mm lesion of the inferior pole left kidney anteriorly on im age 216. 1.8 cm cyst of the anterior interpolar right kidney. Punctate nonobstructing calculus of the inferior pole right kidney. No hydronephrosis. Decompressed urinary bladder. 1.4 cm fibroid of the l eft fundal uterus. Atherosclerotic plaque of the abdominal aorta. No adenopathy. Tiny hiatal hernia. No bowel obstruction or bowel wall thickening. Mild colonic diverticulosis. Nonin flamed appendix. Scattered air-fluid levels throughout the large bowel. Unremarkable soft tissues. Th ere is no acute fracture. Degenerative changes of the spine. IMPRESSION: 1. No bowel obstruction or bowel wall thickening. Normal appendix. 2. Scattered large bowel air-fluid levels suggestive of diarrheal illness. 3. Punctate right renal calculus. 4. 8 mm intermediate density lesion of the interpolar left kidney. This could be correlated with a fo llow-up renal ultrasound. 5. Fibroid uterus. 6. Additional findings as above. ACT 112: Negative or not required by law. The above report was generated using voice recognition software. It may contain grammatical, syntax o r spelling errors. Electronically signed by: Santy Laws M.D. 10/15/2020 8:33 PM
[2020-10-15] MEDS ORDERED: SODIUM CHLORIDE 0.9% 1000ML 1,000 ML IV SCH (22:00)
--- NOTE | 2020-10-15 22:25 | History & Physical Report ---
Date of Service October 15, 2020 Assessment & Plan (1) Nausea vomiting and diarrhea: Patient reports several days of nausea, vomiting, diarrhea as well as weakness, malaise and fever. Hemodynamically stable in ER. Lymphopenic. CT suggestive of diarrheal illness. -Admit to medical -Follow cultures -Check stool culture -Check O and P - patient is on well water at home -Clear liquids - advance as tolerated -Tylenol PRN fever -Zofran PRN nausea -LR at 125mL/hr x 1 liter Present on Admission?: Yes (2) GERD (gastroesophageal reflux disease): Chronic -Continue Pepcid Present on Admission?: Yes (3) CAD (coronary artery disease): Chronic. Reproducible chest wall pain -Monitor Present on Admission?: Yes (4) PAF (paroxysmal atrial fibrillation): s/p ablation -Now in NSR -Continue Diltiazem Present on Admission?: Yes (5) Congestion of nasal sinus: Chronic -Nasal saline -Flonase -Mucinex Present on Admission?: Yes (6) HTN (hypertension): Chronic -Continue Lisinopril 20mg po daily -Continue to monitor F/E/N - LR at 125mL/hr x 1 liter, electrolytes and renal function within normal limits, clear liquid diet as tolerated Ppx - Lovenox 40 BID for ppx Code - Full Dispo - Admit to medical History of Present Illness Chief Complaint: nausea/vomiting/diarrhea Primary Care Provider: MAJOR Rodriguez 65yo female with history of CAD, HTN, PAF s/p ablation presenting with 4 days of fatigue, nausea/vomiting/diarrhea and PO intolerance. Patient had an elevated temperature today to 101, had an episode of chest pain after vomiting. PO intolerance in ER. Symptoms have been progressively worsening over time - today she had multiple episodes of vomiting and diarrhea. Unable to tolerate small sips of liquid in ER without vomiting. ER Course: NSS, Zofran x 2, Pepcid, Tylenol 1gm Allergies Allergy/AdvReac Type Severity Reaction Status Date / Time Sulfa (Sulfonamide Allergy Intermediate METAL Verified 10/15/20 20:36 Antibiotics) TASTE IN MOUTH, TONGUE SWELLS UP latex Allergy Unknown RASH Verified 10/15/20 20:36 Home Medications Medication Instructions Recorded Confirmed Type albuterol sulfate 2 puff INHALATION Q6H PRN 06/13/18 10/15/20 History clobetasol 1 applic TOPICAL BID PRN 06/13/18 10/15/20 History diltiazem HCl 120 mg PO DAILY 06/13/18 10/15/20 History fluticasone propionate [Flonase 2 spray INTRANASAL BID 06/13/18 10/15/20 History Allergy Relief] lisinopril 20 mg PO DAILY 06/13/18 10/15/20 History multivitamin [Multiple Vitamins] 1 tab PO DAILY 06/13/18 10/15/20 History nitroglycerin 0.4 mg SUBLINGUAL UD PRN 06/13/18 10/15/20 History omeprazole 40 mg PO QAM 06/13/18 10/15/20 History albuterol sulfate 2.5 mg CONTINUOUS NEBULIZATION TID 10/15/20 10/15/20 History PRN calcium carb-D3-mag ox-zinc ox 1 tab PO DAILY 10/15/20 10/15/20 History cholecalciferol (vitamin D3) 150 mcg PO DAILY 10/15/20 10/15/20 History [Vitamin D3] diphenhydramine HCl 50 mg PO HS PRN 10/15/20 10/15/20 History guaifenesin [Mucinex] 600 mg PO DAILY 10/15/20 10/15/20 History hydrochlorothiazide 12.5 mg PO DAILY 10/15/20 10/15/20 History omega-3 fatty acids [Warren 3] 1,000 mg PO DAILY 10/15/20 10/15/20 History Past Med/Surg History Medical History (Updated 10/16/20 @ 03:53 by Jailyn Nunez DO) CAD (coronary artery disease) GERD (gastroesophageal reflux disease) HTN (hypertension) Migraine PAF (paroxysmal atrial fibrillation) Social History Smoking Status: Never smoker Hx Alcohol Use: Yes Alcohol type: beer Hx Substance Use: No Preferred Language: Indonesian Communication Ability: Effective Sde Required: No Beliefs That Will Affect Care: None Current Living Situation: Alone Other Information That Helps Us Care for You: No Feels Safe at Home: Yes Safety Concerns: Feels Safe At This Time Assistive Devices: Glasses Review of Systems Review of Systems: All systems reviewed & are unremarkable except as noted in HPI & below +fevers +chills +Headache +appetite loss +nausea +vomiting +malaise +weakness +sinus congestion Physical Exam Physical Exam: General: patient resting comfortably, NAD, ill in appearance, AA&O x 4 Skin: warm, dry, intact, no rashes or lesions HEENT: NC/AT, PERRL, EOMI, anicteric sclera, conjunctiva without injection, external ear normal to inspection and nontender, nares patent, dry mucus membranes, dentition intact, no oropharyngeal lesions, neck supple, trachea midline, no LAD, no thyromegaly, no JVD Heart: +S1/S2, regular, no m/r/g, reproducible left sided chest wall pain Lungs: equal air entry bilaterally, no rales/rhonchi/wheezes Abd: +BS hyperactive, soft, NT, diffusely tender with no rebound/guarding/peritoneal signs, no masses/organomegaly/ascites Ext: warm, 2+ pulses in UE/LE bilaterally, no clubbing/cyanosis or edema Neuro: nonfocal, patient AA&O x 4, speech intact, no facial droop, moving all extremities on command with equal strength 5/5 Results & Data Results & Data ([facility]) Vital Signs (Past 12 Hours) Vital Signs Temp Pulse Resp BP Pulse Ox 10/15/20 22:01 69 18 96 10/15/20 22:00 66 16 133/65 93 10/15/20 21:50 67 16 10/15/20 21:40 77 14 10/15/20 21:39 37 C 10/15/20 21:30 67 18 129/78 88 L 10/15/20 21:20 74 22 87 L 10/15/20 21:15 82 22 138/84 87 L 10/15/20 21:10 84 22 88 L 10/15/20 21:00 68 23 137/77 90 10/15/20 20:50 71 12 91 10/15/20 20:45 70 14 142/77 H 91 10/15/20 20:40 68 19 89 L 10/15/20 20:30 69 13 140/76 91 10/15/20 20:20 71 17 90 10/15/20 20:15 71 16 133/75 90 10/15/20 20:10 79 20 91 10/15/20 20:09 88 17 10/15/20 19:50 73 17 92 10/15/20 19:45 74 16 142/79 H 94 10/15/20 19:40 74 15 93 10/15/20 19:31 76 25 H 87 L 10/15/20 19:30 75 24 140/76 88 L 10/15/20 19:15 71 14 131/73 91 10/15/20 19:10 72 20 93 10/15/20 19:01 38.3 C H 73 21 92 10/15/20 19:00 72 16 118/76 93 10/15/20 18:52 93 10/15/20 18:10 74 19 10/15/20 18:00 75 14 10/15/20 17:50 77 25 H 94 10/15/20 17:40 80 23 95 10/15/20 17:30 77 16 90 10/15/20 17:10 77 14 92 10/15/20 17:00 79 22 92 10/15/20 16:52 76 14 93 10/15/20 16:48 76 10 L 137/67 93 10/15/20 16:42 38.8 C H 80 18 137/67 99 Laboratory Results Laboratory Results WBC 4.53 K/uL (4.8-10.8) L 10/15/20 17:07 RBC 4.38 M/uL (4.2-5.4) 10/15/20 17:07 Hgb 12.0 g/dL (12.0-16.0) 10/15/20 17:07 Hct 37.5 % (37-47) 10/15/20 17:07 MCV 85.6 fL (80-100) 10/15/20 17:07 MCH 27.4 pg (25-34) 10/15/20 17:07 MCHC 32.0 g/dL (32-36) 10/15/20 17:07 RDW Std Deviation 41.5 fL (36.4-46.3) 10/15/20 17:07 RDW Coeff of Emma 13.2 % (11.5-14.5) 10/15/20 17:07 Plt Count 201 K/uL (130-400) 10/15/20 17:07 MPV 9.8 fL (7.4-10.4) 10/15/20 17:07 Immature Gran % (Auto) 0.4 % 10/15/20 17:07 Neut % (Auto) 60.1 % 10/15/20 17:07 Lymph % (Auto) 28.7 % 10/15/20 17:07 Lynn % (Auto) 10.2 % 10/15/20 17:07 Eos % (Auto) 0.2 % 10/15/20 17:07 Baso % (Auto) 0.4 % 10/15/20 17:07 Neut # (Auto) 2.72 K/uL (1.4-6.5) 10/15/20 17:07 Lymph # (Auto) 1.30 K/uL (1.2-3.4) 10/15/20 17:07 Lynn # (Auto) 0.46 K/uL (0.11-0.59) 10/15/20 17:07 Eos # (Auto) 0.01 K/uL (0-0.5) 10/15/20 17:07 Baso # (Auto) 0.02 K/uL (0-0.2) 10/15/20 17:07 Immature Gran # (Auto) 0.02 K/uL (0.00-0.02) 10/15/20 17:07 Sodium 140 mmol/L (136-145) 10/15/20 17:07 Potassium 4.2 mmol/L (3.5-5.1) 10/15/20 17:07 Chloride 105 mmol/L (98-107) 10/15/20 17:07 Carbon Dioxide 25 mmol/L (21-32) 10/15/20 17:07 Anion Gap 10.0 (3-11) 10/15/20 17:07 BUN 11 mg/dl (7-18) 10/15/20 17:07 Creatinine 0.74 mg/dl (0.6-1.2) 10/15/20 17:07 Est Cr Clr Drug Dosing 87.3 ml/min 10/15/20 17:07 Est GFR ( Amer) 99.9 ml/min 10/15/20 17:07 Est GFR (Non-Af Amer) 86.2 ml/min 10/15/20 17:07 BUN/Creatinine Ratio 15.4 (10-20) 10/15/20 17:07 Glucose 102 mg/dl (70-99) H 10/15/20 17:07 Calcium 8.9 mg/dl (8.5-10.1) 10/15/20 17:07 Total Bilirubin 0.4 mg/dl (0.2-1) 10/15/20 17:07 AST 38 U/L (15-37) H 10/15/20 17:07 ALT 38 U/L (12-78) 10/15/20 17:07 Alkaline Phosphatase 61 U/L (45-117) 10/15/20 17:07 Troponin I < 0.015 ng/ml (0-0.045) 10/15/20 18:12 Total Protein 7.9 gm/dl (6.4-8.2) 10/15/20 17:07 Albumin 3.6 gm/dl (3.4-5.0) 10/15/20 17:07 Globulin 4.3 gm/dl (2.5-4.0) H 10/15/20 17:07 Albumin/Globulin Ratio 0.8 (0.9-2) L 10/15/20 17:07 Lipase 164 U/L (73-393) 10/15/20 18:12 Procalcitonin 0.18 ng/ml (0-0.5) 10/15/20 18:12 Urine Color Dark Yellow 10/15/20 16:48 Urine Appearance Clear (Clear) 10/15/20 16:48 Urine pH 5.0 (4.5-7.5) 10/15/20 16:48 Ur Specific Crystal 1.023 (1.000-1.030) 10/15/20 16:48 Urine Protein Negative (Negative) 10/15/20 16:48 Urine Glucose (UA) Negative (Negative) 10/15/20 16:48 Urine Ketones Trace (Negative) H 10/15/20 16:48 Urine Blood 2+ (Negative) H 10/15/20 16:48 Urine Nitrite Negative (Negative) 10/15/20 16:48 Urine Bilirubin Negative (Negative) 10/15/20 16:48 Urine Urobilinogen Negative (Negative) 10/15/20 16:48 Ur Leukocyte Esterase Negative (Negative) 10/15/20 16:48 Urine WBC (Auto) 1-5 /hpf (0-5) 10/15/20 16:48 Urine RBC (Auto) 0-4 /hpf (0-4) 10/15/20 16:48 U Hyaline Cast (Auto) 1-5 /lpf (0-5) 10/15/20 16:48 U Epithel Cells (Auto) >30 /lpf (0-5) H 10/15/20 16:48 Urine Bacteria (Auto) Negative (Negative) 10/15/20 16:48 Lyme Disease IgG Ab Negative (Negative) 10/15/20 18:12 Lyme Disease IgM Ab Negative (Negative) 10/15/20 18:12 COVID-19 Eval Order Covid19 at [facility] 10/15/20 16:48 SARS-CoV-2 (PCR) NEGATIVE (Negative) 10/15/20 16:48 Impressions Chest X-Ray 10/15/20 17:42 XR chest 1V portable, XR KUB/Abdomen 1 view HISTORY: 65 years-old Female fever acute fever abdominal pain COMPARISON: Chest CT and chest radiograph 06/13/2018 TECHNIQUE: Portable AP view the chest with KUB radiograph FINDINGS: CHEST: Cardiomegaly. Loop recorder device. No pneumothorax, pleural effusion, airspace consolidation or overt pulmonary edema. Mild chronic interstitial coarsening of the lung bases. Degenerative changes of the shoulders and spine. KUB: No pneumatosis or pneumoperitoneum. Nonobstructive bowel gas pattern. No urolith identified. Pelvic basin calcifications are likely vascular. No acute fracture. IMPRESSION: 1. Cardiomegaly without acute intrathoracic abnormality. 2. Nonobstructive bowel gas pattern. ACT 112: Negative or not required by law. The above report was generated using voice recognition software. It may contain grammatical, syntax or spelling errors. Electronically signed by: Santy Laws M.D. 10/15/2020 7:[address] 10/15/20 17:42 CT head/brain wo con CLINICAL HISTORY: 65 years-old Female with headache, vomiting. Acute headache with vomiting TECHNIQUE: Multiple axial CT images of the head were obtained without contrast. A dose lowering technique was utilized adhering to the principles of ALARA. CT DOSE: 614.27 mGy.cm COMPARISON: 04/24/2014. FINDINGS: No acute intracranial hemorrhage, midline shift, intracranial mass, hydrocephalus, territorial ischemia or abnormal extra-axial collection. The calvarium is intact. Prior bilateral lens repair. The paranasal sinuses, mastoid air cells, and middle ear cavities are clear. IMPRESSION: No acute intracranial abnormality. ACT 112: Negative or not required by law. The above report was generated using voice recognition software. It may contain grammatical, syntax or spelling errors. Electronically signed by: Santy Laws M.D. 10/15/2020 6:50 PM KUB X-Ray 10/15/20 17:42 XR chest 1V portable, XR KUB/Abdomen 1 view HISTORY: 65 years-old Female fever acute fever abdominal pain COMPARISON: Chest CT and chest radiograph 06/13/2018 TECHNIQUE: Portable AP view the chest with KUB radiograph FINDINGS: CHEST: Cardiomegaly. Loop recorder device. No pneumothorax, pleural effusion, airspace consolidation or overt pulmonary edema. Mild chronic interstitial coarsening of the lung bases. Degenerative changes of the shoulders and spine. KUB: No pneumatosis or pneumoperitoneum. Nonobstructive bowel gas pattern. No urolith identified. Pelvic basin calcifications are likely vascular. No acute fracture. IMPRESSION: 1. Cardiomegaly without acute intrathoracic abnormality. 2. Nonobstructive bowel gas pattern. ACT 112: Negative or not required by law. The above report was generated using voice recognition software. It may contain grammatical, syntax or spelling errors. Electronically signed by: Santy Laws M.D. 10/15/2020 7:13 PM Abdomen/Pelvis CT 10/15/20 19:[address] WITH IV CONTRAST CT DOSE: 1045.92 mGycm HISTORY: Acute nausea and vomiting with generalized abdominal pain n/v/d, abd pain TECHNIQUE: Multiaxial CT images of the abdomen and pelvis were performed following the IV administration of 97 cc of Optiray, A dose lowering technique was utilized adhering to the principles of ALARA. COMPARISON STUDY: Chest CT 06/13/2018 FINDINGS: The imaged inferior cardiac chambers are unremarkable. Coronary artery calcifications. Mild bibasilar atelectasis. No pneumatosis or pneumoperitoneum. The spleen, pancreas, gallbladder and adrenal glands are unremarkable. The liver is within normal limits. Patency of the hepatic and portal veins. Indeterminate intermediate density 8 mm lesion of the inferior pole left kidney anteriorly on image 216. 1.8 cm cyst of the anterior interpolar right kidney. Punctate nonobstructing calculus of the inferior pole right kidney. No hydronephrosis. Decompressed urinary bladder. 1.4 cm fibroid of the left fundal uterus. Atherosclerotic plaque of the abdominal aorta. No adenopathy. Tiny hiatal hernia. No bowel obstruction or bowel wall thickening. Mild colonic diverticulosis. Noninflamed appendix. Scattered air-fluid levels throughout the large bowel. Unremarkable soft tissues. There is no acute fracture. Degenerative changes of the spine. IMPRESSION: 1. No bowel obstruction or bowel wall thickening. Normal appendix. 2. Scattered large bowel air-fluid levels suggestive of diarrheal illness. 3. Punctate right renal calculus. 4. 8 mm intermediate density lesion of the interpolar left kidney. This could be correlated with a follow-up renal ultrasound. 5. Fibroid uterus. 6. Additional findings as above. ACT 112: Negative or not required by law. The above report was generated using voice recognition software. It may contain grammatical, syntax or spelling errors. Electronically signed by: Santy Laws M.D. 10/15/2020 8:33 PM Code Status & VTE Plan VTE Prophylaxis Plan VTE Prophylaxis will be ordered: Yes PG Care Time/CCT Total # of Minutes Spent Total Time Spent with Patient: Total time spent is greater than 50% in coordination of care (as documented) at patient's floor/unit and/or counseling patient: Coding Level of Care Code 59421 Initial Inpt Care Lvl 3 Diagnoses Nausea vomiting and diarrhea R11.2; R19.7 GERD (gastroesophageal reflux disease) K21.9 Esophagitis presence: esophagitis presence not specified CAD (coronary artery disease) I25.10 Coronary Disease-Associated Artery/Lesion type: [place] artery [place] vs. transplanted heart: [place] heart Associated angina: without angina PAF (paroxysmal atrial fibrillation) I48.0 Congestion of nasal sinus R09.81 HTN (hypertension) I10 Hypertension type: essential hypertension (1) GERD (gastroesophageal reflux disease) Esophagitis presence: esophagitis presence not specified Qualified Code(s): K21.9 - Gastro-esophageal reflux disease without esophagitis (2) HTN (hypertension) Hypertension type: essential hypertension Qualified Code(s): I10 - Essential (primary) hypertension (3) CAD (coronary artery disease) Coronary Disease-Associated Artery/Lesion type: [place] artery [place] vs. transplanted heart: [place] heart Associated angina: without angina Qualified Code(s): I25.10 - Atherosclerotic heart disease of [place] coronary artery without angina pectoris
[2020-10-15] MEDS ORDERED: SODIUM CHLORIDE 0.65% NA SOLN 45 ML (OCEAN) PRN (23:10)
[2020-10-15] MEDS ORDERED: ALBUTEROL HFA 8 GM INHALER INH PRN (23:10)
[2020-10-15] MEDS ORDERED: diphenhydrAMINE Capsule 25 MG CAP PO PRN (23:23)
[2020-10-15] MEDS ORDERED: LACTATED RINGER'S 1,000 ML IV SCH (23:30)
[2020-10-16] MEDS: ENOXAPARIN INJ 40 MG/0.4 ML SYR SQ SCH ×2 (00:36→12:26)
[2020-10-16] MEDS: ACETAMINOPHEN 325 MG TAB PO PRN ×2 (03:53→15:27)
[2020-10-16] MEDS: IBUPROFEN 200 MG TAB PO PRN ×2 (06:27→21:24)
[2020-10-16] MEDS: FLUTICASONE PROPIONATE NA SPR 16 GM BTL SCH ×2 (08:23→21:16)
[2020-10-16] MEDS: lisinopril 20 MG TAB PO SCH (08:24)
[2020-10-16] MEDS: guaiFENesin 600 MG TABCR PO SCH (08:24)
[2020-10-16] MEDS: FAMOTIDINE 40 MG TABLET PO SCH (08:24)
[2020-10-16] MEDS: dilTIAZem ER 120 MG CAPCR PO SCH (08:24)
[2020-10-16] MEDS: ONDANSETRON INJ 2 MG/ML 2 ML VIAL IV PRN ×2 (09:27→15:27)
[2020-10-16 18:58] LABS: Hematocrit (blood only) 33.7 % (37-47); Hemoglobin 10.8 g/dL (12.0-16.0); Mean Corpuscular Hemoglobin 27.4 pg (25-34); Mean Corpuscular Volume 85.5 fL (80-100); Mean Platelet Volume 9.7 fL (7.4-10.4); Platelet Count 197 K/uL (130-400); RDW Coefficient of Variation 13.1 % (11.5-14.5); RDW Standard Deviation 41.3 fL (36.4-46.3); Red Blood Count 3.94 M/uL (4.2-5.4); White Blood Count 5.61 K/uL (4.8-10.8)
[2020-10-16 19:21] LABS: Alanine Aminotransferase 40 U/L (12-78); Albumin Level 3.3 gm/dl (3.4-5.0); Aspartate Aminotransferase 30 U/L (15-37); BUN Creatinine Ratio 10.3 (10-20); Bilirubin Direct < 0.1 mg/dl (0-0.2); Blood Urea Nitrogen 7 mg/dl (7-18); Calcium 8.5 mg/dl (8.5-10.1); Carbon Dioxide 28 mmol/L (21-32); Chloride 108 mmol/L (98-107); Creatinine Clr Calc Pharmacy 92.3 ml/min; Est GFR (African American) 106.9 ml/min; Est GFR (Non-African American) 92.2 ml/min; Glucose 104 mg/dl (70-99); Potassium 3.4 mmol/L (3.5-5.1); Sodium 142 mmol/L (136-145)
[2020-10-16 19:25] LABS: Alkaline Phosphatase 58 U/L (45-117); Bilirubin,Total 0.3 mg/dl (0.2-1); Total Protein 7.1 gm/dl (6.4-8.2)
--- NOTE | 2020-10-16 23:00 | Hospitalist Progress Note ---
Date of Service October 16, 2020 Assessment & Plan (1) Nausea vomiting and diarrhea: Viral gastroenteritis vs other infectious gastroenteritis Patient reports several days of nausea, vomiting, diarrhea as well as weakness, malaise and fever. Hemodynamically stable in ER. Lymphopenic. CT suggestive of diarrheal illness. -Admit to medical -Follow cultures -pending final stool culture -Check O and P - patient is on well water at home -Clear liquids - advance as tolerated -will place on a soft diet this evening and will monitor. -Tylenol PRN fever -Zofran PRN nausea -anticipate discharge tomorrow if continues to improve. (2) GERD (gastroesophageal reflux disease): Chronic -Continue Pepcid (3) CAD (coronary artery disease): Chronic. Reproducible chest wall pain -Monitor (4) PAF (paroxysmal atrial fibrillation): s/p ablation -Now in NSR -Continue Diltiazem (5) Congestion of nasal sinus: Chronic -Nasal saline -Flonase -Mucinex (6) HTN (hypertension): Chronic -Continue Lisinopril 20mg po daily -Continue to monitor Code - Full Dispo - Admit to medical Admission and Anticipated Discharge Date Admission Date: October 15, 2020 Subjective Patient reports her diarrhea has improved. Review of Systems Review of Systems: All systems reviewed & are unremarkable except as noted in HPI & below Physical Exam Physical Exam: General: patient resting comfortably, NAD, ill in appearance, AA&O x 4 Skin: warm, dry, intact, no rashes or lesions HEENT: NC/AT, PERRL, EOMI, anicteric sclera, conjunctiva without injection, external ear normal to inspection and nontender, nares patent, dry mucus membranes, dentition intact, no oropharyngeal lesions, neck supple, trachea midline, no LAD, no thyromegaly, no JVD Heart: +S1/S2, regular, no m/r/g, reproducible left sided chest wall pain Lungs: equal air entry bilaterally, no rales/rhonchi/wheezes Abd: +BS hyperactive, soft, NT, diffusely tender with no rebound/guarding/peritoneal signs, no masses/organomegaly/ascites Ext: warm, 2+ pulses in UE/LE bilaterally, no clubbing/cyanosis or edema Neuro: nonfocal, patient AA&O x 4, speech intact, no facial droop, moving all extremities on command with equal strength 5/5 Results & Data Results & Data ([facility]) Vital Signs (Past 12 Hours) Vital Signs Temp Pulse Resp BP BP Pulse Ox 10/16/20 16:17 37.8 C H 73 18 116/71 93 10/16/20 15:11 38.2 C H 75 18 125/75 93 PG Care Time/CCT Total # of Minutes Spent Total Time Spent with Patient: Total time spent is greater than 50% in coordination of care (as documented) at patient's floor/unit and/or counseling patient: Coding Level of Care Code 80113 Subseq Hosp Care Lvl 2 Diagnoses Nausea vomiting and diarrhea R11.2; R19.7 GERD (gastroesophageal reflux disease) K21.9 Esophagitis presence: esophagitis presence not specified CAD (coronary artery disease) I25.10 Associated angina: without angina Coronary Disease-Associated Artery/Lesion type: [place] artery [place] vs. transplanted heart: [place] heart PAF (paroxysmal atrial fibrillation) I48.0 Congestion of nasal sinus R09.81 HTN (hypertension) I10 Hypertension type: essential hypertension Time Spent (min) 24 (1) CAD (coronary artery disease) Associated angina: without angina Coronary Disease-Associated Artery/Lesion type: [place] artery [place] vs. transplanted heart: [place] heart Qualified Code(s): I25.10 - Atherosclerotic heart disease of [place] coronary artery without angina pectoris (2) GERD (gastroesophageal reflux disease) Esophagitis presence: esophagitis presence not specified Qualified Code(s): K21.9 - Gastro-esophageal reflux disease without esophagitis (3) HTN (hypertension) Hypertension type: essential hypertension Qualified Code(s): I10 - Essential (primary) hypertension
[2020-10-17] MEDS: ENOXAPARIN INJ 40 MG/0.4 ML SYR SQ SCH ×2 (00:49→12:53)
--- NOTE | 2020-10-17 06:21 | Electrocardiogram Report ---
Test Reason : Blood Pressure : / mmHG Vent. Rate : 076 BPM Atrial Rate : 076 BPM P-R Int : 166 ms QRS Dur : 090 ms QT Int : 362 ms P-R-T Axes : 039 002 059 degrees QTc Int : 407 ms Normal sinus rhythm Minimal voltage criteria for LVH, may be normal variant Nonspecific T wave abnormality Abnormal ECG When compared with ECG of 13-JUN-2018 00:39, Nonspecific T wave abnormality has improved in anterior leads Confirmed by Jong Bryson ([id number]) on 10/17/2020 6:21:00 AM Referred By: REFERRED SELF Confirmed By:Jong Bryson
[2020-10-17] MEDS: dilTIAZem ER 120 MG CAPCR PO SCH (08:00)
[2020-10-17] MEDS: guaiFENesin 600 MG TABCR PO SCH (08:00)
[2020-10-17] MEDS: FLUTICASONE PROPIONATE NA SPR 16 GM BTL SCH ×2 (08:00→21:13)
[2020-10-17] MEDS: lisinopril 20 MG TAB PO SCH (08:00)
[2020-10-17] MEDS: FAMOTIDINE 40 MG TABLET PO SCH (08:01)
[2020-10-17] MEDS: ACETAMINOPHEN 325 MG TAB PO PRN ×2 (08:03→18:45)
[2020-10-17 08:26] LABS: Hematocrit (blood only) 34.6 % (37-47); Hemoglobin 10.9 g/dL (12.0-16.0); Mean Corpuscular Hemoglobin 27.5 pg (25-34); Mean Corpuscular Hgb Conc 31.5 g/dL (32-36); Mean Corpuscular Volume 87.4 fL (80-100); Mean Platelet Volume 9.7 fL (7.4-10.4); Platelet Count 204 K/uL (130-400); RDW Coefficient of Variation 13.2 % (11.5-14.5); RDW Standard Deviation 42.2 fL (36.4-46.3); Red Blood Count 3.96 M/uL (4.2-5.4); White Blood Count 5.43 K/uL (4.8-10.8)
[2020-10-17 08:55] LABS: BUN Creatinine Ratio 14.6 (10-20); Creatinine Clr Calc Pharmacy 99.4 ml/min; Est GFR (African American) 109.5 ml/min; Est GFR (Non-African American) 94.5 ml/min; Potassium 3.7 mmol/L (3.5-5.1)
[2020-10-17] MEDS ORDERED: CLOBETASOL PROPIONATE 0.05% OINT 15 GM TUBE EXT PRN (11:34)
[2020-10-17] MEDS: ONDANSETRON INJ 2 MG/ML 2 ML VIAL IV PRN ×2 (13:06→18:46)
[2020-10-17] MEDS ORDERED: LOPERAMIDE HCL 2 MG CAP PO PRN (15:58)
--- NOTE | 2020-10-17 15:58 | Hospitalist Progress Note ---
Date of Service October 17, 2020 Assessment & Plan (1) Nausea vomiting and diarrhea: Viral gastroenteritis vs other infectious gastroenteritis most likely given its acute onset and no prior symptoms. - Pending final stool culture, but prelim is negative. - Checking O & P - patient is on well water at home. Received, but not back yet. - Can start Imodium PRN (2) HTN (hypertension): BP today was 130/75. - Continue home lisinopril 20mg po daily - Continue diltiazem (3) CAD (coronary artery disease): Chronic. Reproducible chest wall pain. No indication of acute ischemia. Not clear why she's not on ASA, beta-kam, or statin. - Monitor - Continue home nitro PRN (4) PAF (paroxysmal atrial fibrillation): S/p ablation. Now in NSR. - Continue home diltiazem 120 mg PO daily - Not on anticoagulation at home (5) GERD (gastroesophageal reflux disease): Chronic. - Continue Pepcid (6) Congestion of nasal sinus: Chronic. - Continue nasal saline, Flonase, & Mucinex. Admission and Anticipated Discharge Date Admission Date: October 15, 2020 Subjective Diarrhea is improving. Less urgent and able to hold it a bit to get to the restroom. It is firming up, though still largely soft. With definite nausea, though overall improving some. Reports no fevers/chills, chest pain, shortness of breath, abdominal pain, or vomiting. Physical Exam Constitutional: WD/WN, vitals as above + acute distress Eyes: EOM intact bilaterally; no conjunctival abnormality ENMT: external ear and nose normal, oropharynx normal Neck: trachea midline, no thyromegaly normal visual inspection Respiratory: normal respiratory effort, lungs clear to auscultation no respiratory distress Cardiovascular: RRR, no murmur, no edema Gastrointestinal (Abdomen): Inspection/Auscultation: abdomen normal to inspection; abdomen not distended Percussion/Palpation: abdomen soft; abdomen nontender, no guarding and abdomen not rigid Musculoskeletal: no cyanosis or clubbing, extremities motor strength 5/5 Skin: no rashes, warm and dry Neurologic: moves all extremities and awake Psychiatric: Orientation: alert, oriented to person and cooperative Results & Data Results & Data ([facility]) Vital Signs (Past 12 Hours) Vital Signs Pulse Resp BP Pulse Ox 10/17/20 07:31 64 20 132/77 94 PG Care Time/CCT Total # of Minutes Spent Total Time Spent with Patient: Total time spent is greater than 50% in coordination of care (as documented) at patient's floor/unit and/or counseling patient: Coding Level of Care Code 99050 Subseq Hosp Care Lvl 2 Diagnoses Nausea vomiting and diarrhea R11.2; R19.7 HTN (hypertension) I10 Hypertension type: essential hypertension CAD (coronary artery disease) I25.10 Coronary Disease-Associated Artery/Lesion type: [place] artery [place] vs. transplanted heart: [place] heart Associated angina: without angina PAF (paroxysmal atrial fibrillation) I48.0 GERD (gastroesophageal reflux disease) K21.9 Esophagitis presence: esophagitis presence not specified Congestion of nasal sinus R09.81 (1) GERD (gastroesophageal reflux disease) Esophagitis presence: esophagitis presence not specified Qualified Code(s): K21.9 - Gastro-esophageal reflux disease without esophagitis (2) CAD (coronary artery disease) Coronary Disease-Associated Artery/Lesion type: [place] artery [place] vs. transplanted heart: [place] heart Associated angina: without angina Qualified Code(s): I25.10 - Atherosclerotic heart disease of [place] coronary artery without angina pectoris (3) HTN (hypertension) Hypertension type: essential hypertension Qualified Code(s): I10 - Essential (primary) hypertension
[2020-10-18] MEDS: ENOXAPARIN INJ 40 MG/0.4 ML SYR SQ SCH ×2 (00:34→12:05)
[2020-10-18 06:46] LABS: Hematocrit (blood only) 33.8 % (37-47); Hemoglobin 10.9 g/dL (12.0-16.0); Mean Corpuscular Hemoglobin 27.1 pg (25-34); Mean Corpuscular Hgb Conc 32.2 g/dL (32-36); Mean Corpuscular Volume 84.1 fL (80-100); Mean Platelet Volume 9.7 fL (7.4-10.4); Platelet Count 218 K/uL (130-400); RDW Coefficient of Variation 13.1 % (11.5-14.5); RDW Standard Deviation 39.9 fL (36.4-46.3); Red Blood Count 4.02 M/uL (4.2-5.4); White Blood Count 5.48 K/uL (4.8-10.8)
[2020-10-18 07:09] LABS: BUN Creatinine Ratio 12.9 (10-20); Calcium 8.7 mg/dl (8.5-10.1); Creatinine Clr Calc Pharmacy 97.9 ml/min; Phosphorus 3.2 mg/dl (2.5-4.9); Potassium 3.8 mmol/L (3.5-5.1)
[2020-10-18] MEDS: FLUTICASONE PROPIONATE NA SPR 16 GM BTL SCH ×2 (08:16→20:30)
[2020-10-18] MEDS: FAMOTIDINE 40 MG TABLET PO SCH (08:16)
[2020-10-18] MEDS: dilTIAZem ER 120 MG CAPCR PO SCH (08:16)
[2020-10-18] MEDS: lisinopril 20 MG TAB PO SCH (08:16)
[2020-10-18] MEDS: guaiFENesin 600 MG TABCR PO SCH (08:17)
[2020-10-18 12:57] LABS: Appearance Urine Clear (Clear); Bacteria Urine Automated Negative (Negative); Bilirubin Urine Negative (Negative); Blood Urine Trace (Negative); Cast Urine Automated 0 /lpf (0-5); Color Urine Yellow; Epithelial Cell Urine Auto 0-5 /lpf (0-5); Glucose Urine UA Negative (Negative); Ketones Urine Negative (Negative); Leukocyte Esterase Urine Negative (Negative); Nitrite Urine Negative (Negative); Protein Urine Negative (Negative); RBC Urine Automated 0-4 /hpf (0-4); Specific Gravity Urine 1.009 (1.000-1.030); Urobilinogen Urine Negative (Negative); WBC Urine Automated 0 /hpf (0-5)
[2020-10-18] MEDS: ACETAMINOPHEN 325 MG TAB PO PRN ×2 (13:46→20:30)
--- NOTE | 2020-10-18 14:07 | Hospitalist Progress Note ---
Date of Service October 18, 2020 Assessment & Plan (1) Nausea vomiting and diarrhea: Viral gastroenteritis vs other infectious gastroenteritis initially thought, but not improving. - Pending final stool culture, but prelim is negative. - Checking O & P - patient is on well water at home. Received, but not back yet. - Worse today with continued fevers. Will get RUQ u/s and look at kidney as well given CT a/p showed a lesion on the left kidney. KUB to look at bowels. Lipase was normal. Repeat blood cultures given ongoing fever. (2) HTN (hypertension): BP today was 130/75. - Continue home lisinopril 20mg po daily - Continue diltiazem (3) CAD (coronary artery disease): Chronic. Reproducible chest wall pain. No indication of acute ischemia. Not clear why she's not on ASA, beta-kam, or statin. - Monitor - Continue home nitro PRN (4) PAF (paroxysmal atrial fibrillation): S/p ablation. Now in NSR. - Continue home diltiazem 120 mg PO daily - Not on anticoagulation at home (5) GERD (gastroesophageal reflux disease): Chronic. - Continue Pepcid (6) Congestion of nasal sinus: Chronic. - Continue nasal saline, Flonase, & Mucinex. (7) DVT prophylaxis: Lovenox 40 mg SQ daily Admission and Anticipated Discharge Date Admission Date: October 15, 2020 Subjective Diarrhea is stable, but more nausea and emesis yesterday evening and today. Feels more pain in the epigastric region. Still having fevers as well which she is definitely feeling. All in all, does not feel like she is getting better. Reports no chest pain, shortness of breath. Physical Exam Constitutional: WD/WN, vitals as above + acute distress Eyes: EOM intact bilaterally; no conjunctival abnormality ENMT: external ear and nose normal, oropharynx normal Neck: trachea midline, no thyromegaly normal visual inspection Respiratory: normal respiratory effort, lungs clear to auscultation no respiratory distress Cardiovascular: RRR, no murmur, no edema Gastrointestinal (Abdomen): Inspection/Auscultation: abdomen normal to inspection; abdomen not distended Percussion/Palpation: + abdomen tender (RUQ predominentaly) and abdomen soft; no guarding and abdomen not rigid Musculoskeletal: no cyanosis or clubbing, extremities motor strength 5/5 Skin: no rashes, warm and dry Neurologic: moves all extremities and awake Psychiatric: Orientation: alert, oriented to person and cooperative Results & Data Results & Data ([facility]) Vital Signs (Past 12 Hours) Vital Signs Temp Pulse Resp BP Pulse Ox 10/18/20 07:27 37.7 C H 69 18 130/81 93 PG Care Time/CCT Total # of Minutes Spent Total Time Spent with Patient: Total time spent is greater than 50% in coordination of care (as documented) at patient's floor/unit and/or counseling patient: Coding Level of Care Code 00549 Subseq Hosp Care Lvl 3 Diagnoses Nausea vomiting and diarrhea R11.2; R19.7 HTN (hypertension) I10 Hypertension type: essential hypertension CAD (coronary artery disease) I25.10 Coronary Disease-Associated Artery/Lesion type: [place] artery [place] vs. transplanted heart: [place] heart Associated angina: without angina PAF (paroxysmal atrial fibrillation) I48.0 GERD (gastroesophageal reflux disease) K21.9 Esophagitis presence: esophagitis presence not specified Congestion of nasal sinus R09.81 DVT prophylaxis Z29.9 (1) HTN (hypertension) Hypertension type: essential hypertension Qualified Code(s): I10 - Essential (primary) hypertension (2) CAD (coronary artery disease) Coronary Disease-Associated Artery/Lesion type: [place] artery [place] vs. transplanted heart: [place] heart Associated angina: without angina Qualified Code(s): I25.10 - Atherosclerotic heart disease of [place] coronary artery without angina pectoris (3) GERD (gastroesophageal reflux disease) Esophagitis presence: esophagitis presence not specified Qualified Code(s): K21.9 - Gastro-esophageal reflux disease without esophagitis
--- NOTE | 2020-10-18 14:33 | XRay Report ---
XR KUB/Abdomen 1 view CLINICAL HISTORY: Continued abdominal pain COMPARISON STUDY: 10/15/2020 FINDINGS: There is scattered colonic stool. There is no pathologic bowel dilatation. There are no tra nsition zones indicate bowel obstruction. There are vascular calcifications present. IMPRESSION: Nonobstructive bowel gas pattern. ACT 112: Negative or not required by law. Electronically signed by: Pradip Stapleton M.D. 10/18/2020 2:32 PM
--- NOTE | 2020-10-18 15:48 | Ultrasound Report ---
ABDOMINAL ULTRASOUND CLINICAL HISTORY: Abdominal pain COMPARISON STUDY: CT scan dated 10/15/2020 FINDINGS: Pancreas appears sonographically normal. There is slight increase in hepatic echogenicity, nonspecific finding most often seen in hepatic stea tosis. There is a shadowing gallstone. There is no gallbladder wall thickening, and no evidence of [place] cystic fluid. There is no ductal dilatation. The common bile duct measures 6 mm The right kidney measures 12.2 cm in length. There is no hydronephrosis. There is a 2 cm mid pole cys t. The left kidney measures 12.7 cm in length. There is no hydronephrosis. There is a 12 mm hypoechoic e xophytic lower pole lesion, possibly solid. IMPRESSION: 1. Cholelithiasis. No evidence of ductal dilatation. 2. Possible hepatic steatosis 3. 2 cm right renal cyst 4. Hypoechoic 12 mm exophytic lower pole left renal lesion possibly solid. If further workup is charu ed, a renal MRI would be considered the test of choice. ACT 112: Negative or not required by law. Electronically signed by: Pradip Stapleton M.D. 10/18/2020 3:46 PM
[2020-10-18] MEDS: metroNIDAZOLE 500 MG/100 ML BAG IV SCH (19:34)
[2020-10-18] MEDS: DOXYCYCLINE HYCLATE 100 MG in DEXTROSE 5% 100 ML IV SCH (20:31)
[2020-10-19] MEDS: metroNIDAZOLE 500 MG/100 ML BAG IV SCH ×3 (02:57→19:31)
[2020-10-19 07:03] LABS: Hematocrit (blood only) 32.7 % (37-47); Hemoglobin 10.5 g/dL (12.0-16.0); Mean Corpuscular Hemoglobin 27.1 pg (25-34); Mean Corpuscular Hgb Conc 32.1 g/dL (32-36); Mean Corpuscular Volume 84.5 fL (80-100); Mean Platelet Volume 9.4 fL (7.4-10.4); Platelet Count 208 K/uL (130-400); RDW Coefficient of Variation 13.1 % (11.5-14.5); RDW Standard Deviation 39.9 fL (36.4-46.3); Red Blood Count 3.87 M/uL (4.2-5.4); White Blood Count 4.65 K/uL (4.8-10.8)
[2020-10-19 07:20] LABS: BUN Creatinine Ratio 19.2 (10-20); Creatinine Clr Calc Pharmacy 111.4 ml/min; Est GFR (African American) 113.7 ml/min; Est GFR (Non-African American) 98.1 ml/min; Magnesium 2.1 mg/dl (1.8-2.4); Potassium 3.8 mmol/L (3.5-5.1)
[2020-10-19 07:23] LABS: Albumin Globulin Ratio 0.8 (0.9-2); Bilirubin,Total 0.2 mg/dl (0.2-1); Phosphorus 3.6 mg/dl (2.5-4.9)
[2020-10-19] MEDS: FAMOTIDINE 40 MG TABLET PO SCH (08:11)
[2020-10-19] MEDS: ENOXAPARIN INJ 40 MG/0.4 ML SYR SQ SCH (08:11)
[2020-10-19] MEDS: lisinopril 20 MG TAB PO SCH (08:11)
[2020-10-19] MEDS: dilTIAZem ER 120 MG CAPCR PO SCH (08:11)
[2020-10-19] MEDS: guaiFENesin 600 MG TABCR PO SCH (08:12)
[2020-10-19] MEDS: FLUTICASONE PROPIONATE NA SPR 16 GM BTL SCH ×2 (08:12→20:42)
[2020-10-19] MEDS: DOXYCYCLINE HYCLATE 100 MG in DEXTROSE 5% 100 ML IV SCH ×2 (08:49→20:43)
[2020-10-19] MEDS: ACETAMINOPHEN 325 MG TAB PO PRN ×2 (08:54→22:39)
--- NOTE | 2020-10-19 17:42 | Hospitalist Progress Note ---
Date of Service October 19, 2020 Assessment & Plan (1) Nausea vomiting and diarrhea: Viral gastroenteritis vs other infectious gastroenteritis initially thought, but not improving. - Pending final stool culture, but prelim is negative. - Checking O & P - patient is on well water at home. Received, but not back yet. - Worse on 10/18 with continued fevers. RUQ u/s negative for gallbladder pathology. Lipase normal. Checking for tickborne illnesses as she is outside frequently had recently had an engorged tick on her. Started Flagyl for possible parasitic infection. - Continue doxycycline and Flagyl (2) HTN (hypertension): BP today was 120/75. - Continue home lisinopril 20mg po daily - Continue diltiazem (3) CAD (coronary artery disease): Chronic. Reproducible chest wall pain. No indication of acute ischemia. Not clear why she's not on ASA, beta-kam, or statin. - Monitor - Continue home nitro PRN (4) PAF (paroxysmal atrial fibrillation): S/p ablation. Now in NSR. - Continue home diltiazem 120 mg PO daily - Not on anticoagulation at home (5) GERD (gastroesophageal reflux disease): Chronic. - Continue Pepcid (6) Congestion of nasal sinus: Chronic. - Continue nasal saline, Flonase, & Mucinex. (7) DVT prophylaxis: Lovenox 40 mg SQ daily Admission and Anticipated Discharge Date Admission Date: October 15, 2020 Subjective Improving. No diarrhea today, but feels "full" like she is constipated. Fevers improving. No vomiting in 2 days. Physical Exam Constitutional: WD/WN, vitals as above no acute distress Eyes: EOM intact bilaterally; no conjunctival abnormality ENMT: external ear and nose normal, oropharynx normal Neck: trachea midline, no thyromegaly normal visual inspection Respiratory: normal respiratory effort, lungs clear to auscultation no respiratory distress Cardiovascular: RRR, no murmur, no edema Gastrointestinal (Abdomen): Inspection/Auscultation: abdomen normal to inspection; abdomen not distended Percussion/Palpation: abdomen soft; abdomen nontender, no guarding and abdomen not rigid Musculoskeletal: no cyanosis or clubbing, extremities motor strength 5/5 Skin: no rashes, warm and dry Neurologic: moves all extremities and awake Psychiatric: Orientation: alert, oriented to person and cooperative Results & Data Results & Data ([place]) Vital Signs (Past 12 Hours) Vital Signs Temp Pulse Resp BP BP Pulse Ox 10/19/20 14:56 37.2 C 72 16 117/70 93 10/19/20 07:28 37.3 C 65 16 132/77 92 PG Care Time/CCT Total # of Minutes Spent Total Time Spent with Patient: Total time spent is greater than 50% in coordination of care (as documented) at patient's floor/unit and/or counseling patient: Coding Level of Care Code 84143 Subseq Hosp Care Lvl 2 Diagnoses Nausea vomiting and diarrhea R11.2; R19.7 HTN (hypertension) I10 Hypertension type: essential hypertension CAD (coronary artery disease) I25.10 Coronary Disease-Associated Artery/Lesion type: [place] artery [place] vs. transplanted heart: [place] heart Associated angina: without angina PAF (paroxysmal atrial fibrillation) I48.0 GERD (gastroesophageal reflux disease) K21.9 Esophagitis presence: esophagitis presence not specified Congestion of nasal sinus R09.81 DVT prophylaxis Z29.9 (1) HTN (hypertension) Hypertension type: essential hypertension Qualified Code(s): I10 - Essential (primary) hypertension (2) CAD (coronary artery disease) Coronary Disease-Associated Artery/Lesion type: [place] artery [place] vs. transplanted heart: [place] heart Associated angina: without angina Qualified Code(s): I25.10 - Atherosclerotic heart disease of [place] coronary artery without angina pectoris (3) GERD (gastroesophageal reflux disease) Esophagitis presence: esophagitis presence not specified Qualified Code(s): K21.9 - Gastro-esophageal reflux disease without esophagitis
[2020-10-19] MEDS: ONDANSETRON INJ 2 MG/ML 2 ML VIAL IV PRN (22:46)
[2020-10-20] MEDS: metroNIDAZOLE 500 MG/100 ML BAG IV SCH ×3 (03:56→17:56)
[2020-10-20] MEDS: FAMOTIDINE 40 MG TABLET PO SCH (07:32)
[2020-10-20] MEDS: DOXYCYCLINE HYCLATE 100 MG in DEXTROSE 5% 100 ML IV SCH ×2 (07:39→19:02)
[2020-10-20 07:51] LABS: Hematocrit (blood only) 33.5 % (37-47); Hemoglobin 10.7 g/dL (12.0-16.0); Mean Corpuscular Hemoglobin 27.1 pg (25-34); Mean Corpuscular Hgb Conc 31.9 g/dL (32-36); Mean Corpuscular Volume 84.8 fL (80-100); Mean Platelet Volume 9.5 fL (7.4-10.4); Platelet Count 223 K/uL (130-400); RDW Coefficient of Variation 13.1 % (11.5-14.5); RDW Standard Deviation 40.5 fL (36.4-46.3); Red Blood Count 3.95 M/uL (4.2-5.4); White Blood Count 7.36 K/uL (4.8-10.8)
[2020-10-20 08:20] LABS: Albumin Level 3.2 gm/dl (3.4-5.0); BUN Creatinine Ratio 16.4 (10-20); Calcium 8.9 mg/dl (8.5-10.1); Est GFR (African American) 105.1 ml/min; Est GFR (Non-African American) 90.7 ml/min; Potassium 3.5 mmol/L (3.5-5.1)
[2020-10-20 08:23] LABS: Albumin Globulin Ratio 0.8 (0.9-2); Bilirubin,Total 0.3 mg/dl (0.2-1); Total Protein 7.2 gm/dl (6.4-8.2)
[2020-10-20] MEDS: guaiFENesin 600 MG TABCR PO SCH (09:01)
[2020-10-20] MEDS: ENOXAPARIN INJ 40 MG/0.4 ML SYR SQ SCH (09:02)
[2020-10-20] MEDS: lisinopril 20 MG TAB PO SCH (09:02)
[2020-10-20] MEDS: dilTIAZem ER 120 MG CAPCR PO SCH (09:02)
[2020-10-20] MEDS: FLUTICASONE PROPIONATE NA SPR 16 GM BTL SCH ×2 (09:02→21:01)
--- NOTE | 2020-10-20 16:38 | Hospitalist Progress Note ---
Date of Service October 20, 2020 Assessment & Plan (1) Nausea vomiting and diarrhea: Viral gastroenteritis vs other infectious gastroenteritis initially thought, but was still having fevers through Tuesday (10/18). - Final stool culture negative. - Checking O & P - patient is on well water at home. Received, but not back yet. - Worse on 10/18 with continued fevers. RUQ u/s on 10/18 was negative for gallbladder pathology. Lipase normal. - Checking for tick-borne illnesses as she is outside frequently and had recently had an engorged tick on her. Started Flagyl for possible parasitic infection. - Continue doxycycline and Flagyl -> Improving, but still not feeling well. Will get ID consult to see if I am missing a possible site of infection or continue current plan. (2) HTN (hypertension): BP today was 150/75. - Continue home lisinopril 20mg po daily - Continue diltiazem (3) CAD (coronary artery disease): Chronic. Reproducible chest wall pain. No indication of acute ischemia. Not clear why she's not on ASA, beta-kam, or statin. - Monitor - Continue home nitro PRN (4) PAF (paroxysmal atrial fibrillation): S/p ablation. Now in NSR. - Continue home diltiazem 120 mg PO daily - Not on anticoagulation at home (5) GERD (gastroesophageal reflux disease): Chronic. - Continue Pepcid (6) Congestion of nasal sinus: Chronic. - Continue nasal saline, Flonase, & Mucinex. (7) DVT prophylaxis: Lovenox 40 mg SQ daily Admission and Anticipated Discharge Date Admission Date: October 15, 2020 Subjective Improving. Another rough night when her IV blew and caused her a lot of left arm pain. She threw up a time or two because of the pain. No diarrhea today, but feels "full" like she is constipated. Fevers resolved. Physical Exam Constitutional: WD/WN, vitals as above no acute distress Eyes: EOM intact bilaterally; no conjunctival abnormality ENMT: external ear and nose normal, oropharynx normal Neck: trachea midline, no thyromegaly normal visual inspection Respiratory: normal respiratory effort, lungs clear to auscultation no respiratory distress Cardiovascular: RRR, no murmur, no edema Gastrointestinal (Abdomen): Inspection/Auscultation: abdomen normal to inspection; abdomen not distended Percussion/Palpation: abdomen soft; abdomen nontender, no guarding and abdomen not rigid Musculoskeletal: no cyanosis or clubbing, extremities motor strength 5/5 Skin: no rashes, warm and dry Neurologic: moves all extremities and awake Psychiatric: Orientation: alert, oriented to person and cooperative Results & Data Results & Data ([facility]) Vital Signs (Past 12 Hours) Vital Signs Temp Pulse Resp BP Pulse Ox 10/20/20 16:04 36.6 C 67 16 154/73 H 94 10/20/20 07:57 36.9 C 60 16 146/74 H 94 PG Care Time/CCT Total # of Minutes Spent Total Time Spent with Patient: Total time spent is greater than 50% in coordination of care (as documented) at patient's floor/unit and/or counseling patient: Coding Level of Care Code 18579 Subseq Hosp Care Lvl 3 Diagnoses Nausea vomiting and diarrhea R11.2; R19.7 HTN (hypertension) I10 Hypertension type: essential hypertension CAD (coronary artery disease) I25.10 Coronary Disease-Associated Artery/Lesion type: [place] artery [place] vs. transplanted heart: [place] heart Associated angina: without angina PAF (paroxysmal atrial fibrillation) I48.0 GERD (gastroesophageal reflux disease) K21.9 Esophagitis presence: esophagitis presence not specified Congestion of nasal sinus R09.81 DVT prophylaxis Z29.9 (1) HTN (hypertension) Hypertension type: essential hypertension Qualified Code(s): I10 - Essential (primary) hypertension (2) CAD (coronary artery disease) Coronary Disease-Associated Artery/Lesion type: [place] artery [place] vs. transplanted heart: [place] heart Associated angina: without angina Qualified Code(s): I25.10 - Atherosclerotic heart disease of [place] coronary artery without angina pectoris (3) GERD (gastroesophageal reflux disease) Esophagitis presence: esophagitis presence not specified Qualified Code(s): K21.9 - Gastro-esophageal reflux disease without esophagitis
[2020-10-20] MEDS ORDERED: POLYETHYLENE (MIRALAX) 17 GM PACK PO STA (16:47)
[2020-10-20] MEDS: ACETAMINOPHEN 325 MG TAB PO PRN (21:06)
[2020-10-21] MEDS: metroNIDAZOLE 500 MG/100 ML BAG IV SCH ×2 (03:52→11:45)
[2020-10-21 07:48] LABS: Hematocrit (blood only) 33.6 % (37-47); Hemoglobin 10.8 g/dL (12.0-16.0); Mean Corpuscular Hemoglobin 27.4 pg (25-34); Mean Corpuscular Hgb Conc 32.1 g/dL (32-36); Mean Corpuscular Volume 85.3 fL (80-100); Mean Platelet Volume 9.5 fL (7.4-10.4); Platelet Count 271 K/uL (130-400); RDW Coefficient of Variation 13.2 % (11.5-14.5); RDW Standard Deviation 40.7 fL (36.4-46.3); Red Blood Count 3.94 M/uL (4.2-5.4); White Blood Count 10.02 K/uL (4.8-10.8)
[2020-10-21 08:18] LABS: Albumin Level 3.2 gm/dl (3.4-5.0); BUN Creatinine Ratio 25.9 (10-20); Creatinine Clr Calc Pharmacy 109.5 ml/min; Est GFR (African American) 113.1 ml/min; Est GFR (Non-African American) 97.5 ml/min; Potassium 4.1 mmol/L (3.5-5.1)
[2020-10-21 08:19] LABS: Albumin Globulin Ratio 0.8 (0.9-2); Bilirubin,Total 0.2 mg/dl (0.2-1); Globulin 3.9 gm/dl (2.5-4.0); Total Protein 7.1 gm/dl (6.4-8.2)
[2020-10-21] MEDS: DOXYCYCLINE HYCLATE 100 MG in DEXTROSE 5% 100 ML IV SCH (09:15)
[2020-10-21] MEDS: guaiFENesin 600 MG TABCR PO SCH (09:16)
[2020-10-21] MEDS: FAMOTIDINE 40 MG TABLET PO SCH (09:16)
[2020-10-21] MEDS: dilTIAZem ER 120 MG CAPCR PO SCH (09:16)
[2020-10-21] MEDS: FLUTICASONE PROPIONATE NA SPR 16 GM BTL SCH ×2 (09:16→20:17)
[2020-10-21] MEDS: lisinopril 20 MG TAB PO SCH (09:16)
[2020-10-21] MEDS: ENOXAPARIN INJ 40 MG/0.4 ML SYR SQ SCH (09:16)
[2020-10-21] MEDS: ACETAMINOPHEN 325 MG TAB PO PRN ×2 (10:32→20:16)
--- NOTE | 2020-10-21 15:26 | Hospitalist Progress Note ---
Date of Service October 21, 2020 Assessment & Plan (1) Nausea vomiting and diarrhea: Viral gastroenteritis vs other infectious gastroenteritis initially thought, but was still having fevers through Tuesday (10/18). - Final stool culture negative. - Checking O & P - patient is on well water at home. Received, but not back yet. - Worse on 10/18 with continued fevers. RUQ u/s on 10/18 was negative for gallbladder pathology. Lipase normal. - Checking for tick-borne illnesses as she is outside frequently and had recently had an engorged tick on her. Started Flagyl for possible parasitic infection. - Continue doxycycline - Stop Flagyl. I think GI illness (like Vibrio) less likely. The shrimp she ate was cooked, so no raw seafood exposure after all. (2) HTN (hypertension): BP today was 160/75. - Continue home lisinopril 20mg po daily - Continue diltiazem (3) CAD (coronary artery disease): Chronic. Reproducible chest wall pain. No indication of acute ischemia. Not clear why she's not on ASA, beta-kam, or statin. - Monitor - Continue home nitro PRN (4) PAF (paroxysmal atrial fibrillation): S/p ablation. Now in NSR. - Continue home diltiazem 120 mg PO daily - Not on anticoagulation at home (5) GERD (gastroesophageal reflux disease): Chronic. - Continue Pepcid (6) Congestion of nasal sinus: Chronic. - Continue nasal saline, Flonase, & Mucinex. (7) DVT prophylaxis: Lovenox 40 mg SQ daily Admission and Anticipated Discharge Date Admission Date: October 15, 2020 Subjective Improving. Another rough night when her IV blew and caused her a lot of left arm pain. No diarrhea today, but still feels "full" like she is constipated. Fevers resolved. Physical Exam Constitutional: WD/WN, vitals as above no acute distress Eyes: EOM intact bilaterally; no conjunctival abnormality ENMT: external ear and nose normal, oropharynx normal Neck: trachea midline, no thyromegaly normal visual inspection Respiratory: normal respiratory effort, lungs clear to auscultation no respiratory distress Cardiovascular: RRR, no murmur, no edema Gastrointestinal (Abdomen): Inspection/Auscultation: abdomen normal to inspection; abdomen not distended Percussion/Palpation: abdomen soft; abdomen nontender, no guarding and abdomen not rigid Musculoskeletal: no cyanosis or clubbing, extremities motor strength 5/5 Skin: no rashes, warm and dry Neurologic: moves all extremities and awake Psychiatric: Orientation: alert, oriented to person and cooperative Results & Data Results & Data ([facility]) Vital Signs (Past 12 Hours) Vital Signs Temp Pulse Resp BP BP Pulse Ox 10/21/20 15:14 37.1 C 71 20 168/83 H 97 10/21/20 07:42 36.7 C 65 20 149/86 H 96 PG Care Time/CCT Total # of Minutes Spent Total Time Spent with Patient: Total time spent is greater than 50% in coordination of care (as documented) at patient's floor/unit and/or counseling patient: Coding Level of Care Code 10196 Subseq Hosp Care Lvl 2 Diagnoses Nausea vomiting and diarrhea R11.2; R19.7 HTN (hypertension) I10 Hypertension type: essential hypertension CAD (coronary artery disease) I25.10 Coronary Disease-Associated Artery/Lesion type: [place] artery [place] vs. transplanted heart: [place] heart Associated angina: without angina PAF (paroxysmal atrial fibrillation) I48.0 GERD (gastroesophageal reflux disease) K21.9 Esophagitis presence: esophagitis presence not specified Congestion of nasal sinus R09.81 DVT prophylaxis Z29.9 (1) HTN (hypertension) Hypertension type: essential hypertension Qualified Code(s): I10 - Essential (primary) hypertension (2) CAD (coronary artery disease) Coronary Disease-Associated Artery/Lesion type: [place] artery [place] vs. transplanted heart: [place] heart Associated angina: without angina Qualified Code(s): I25.10 - Atherosclerotic heart disease of [place] coronary artery without angina pectoris (3) GERD (gastroesophageal reflux disease) Esophagitis presence: esophagitis presence not specified Qualified Code(s): K21.9 - Gastro-esophageal reflux disease without esophagitis
[2020-10-21] MEDS: DOXYCYCLINE HYCLATE 100 MG CAP PO SCH (20:16)
[2020-10-22] MEDS: guaiFENesin 600 MG TABCR PO SCH (08:45)
[2020-10-22] MEDS: DOXYCYCLINE HYCLATE 100 MG CAP PO SCH (08:45)
[2020-10-22] MEDS: dilTIAZem ER 120 MG CAPCR PO SCH (08:45)
[2020-10-22] MEDS: lisinopril 20 MG TAB PO SCH (08:45)
[2020-10-22] MEDS: FAMOTIDINE 40 MG TABLET PO SCH (08:45)
[2020-10-22] MEDS: ENOXAPARIN INJ 40 MG/0.4 ML SYR SQ SCH (08:46)
[2020-10-22] MEDS: FLUTICASONE PROPIONATE NA SPR 16 GM BTL SCH (08:46)
[2020-10-22] MEDS: ACETAMINOPHEN 325 MG TAB PO PRN (08:48)
[2020-10-22 09:03] LABS: Albumin Level 3.6 gm/dl (3.4-5.0); BUN Creatinine Ratio 27.3 (10-20); Calcium 9.8 mg/dl (8.5-10.1); Creatinine Clr Calc Pharmacy 102.6 ml/min; Est GFR (African American) 110.6 ml/min; Est GFR (Non-African American) 95.5 ml/min; Potassium 4.2 mmol/L (3.5-5.1)
[2020-10-22 09:06] LABS: Albumin Globulin Ratio 0.8 (0.9-2); Bilirubin,Total 0.4 mg/dl (0.2-1); Globulin 4.3 gm/dl (2.5-4.0); Total Protein 7.9 gm/dl (6.4-8.2)
[2020-10-22] MEDS ORDERED: DOCUSATE SODIUM 100 MG CAP PO ONE (14:17)
[2020-10-22] MEDS ORDERED: DOCUSATE SODIUM/SENNA 50/8.6MG TAB PO SCH (14:30)
--- NOTE | 2020-10-22 16:02 | XRay Report ---
KUB HISTORY: CONSTIPATION COMPARISON: KUB 10/18/2020. FINDINGS: The bowel gas pattern is unremarkable. There are no dilated loops of small bowel to suggest an obstruction. No renal calculi. No ureteral calculi. Calcifications in the deep pelvis likely rep resent phleboliths. These remain unchanged. There is moderate to large amount of well-formed stool se en throughout the colon. This has progressed in the interval. No pneumoperitoneum or pneumatosis. IMPRESSION: Moderate to large amount of well-formed stool within the colon. This has progressed in the interval. ACT 112: Negative or not required by law. Electronically signed by: Lan Tapia M.D. 10/22/2020 4:01 PM
[2020-10-22] MEDS ORDERED: DOCUSATE SODIUM 100 MG CAP PO SCH (21:00)
[2020-10-23 22:37] LABS: Babesia microti IgG <1:64 titer (<1:64); Ehrlichia chaff IgG Ab <1:64 (<1:64); Ehrlichia chaff IgM Ab <1:20 (<1:20)
--- NOTE | 2020-10-27 22:15 | Discharge Summary ---
Date of Service October 22, 2020 Admission HPI Per Admitting Provider 65yo female with history of CAD, HTN, PAF s/p ablation presenting with 4 days of fatigue, nausea/vomiting/diarrhea and PO intolerance. Patient had an elevated temperature today to 101, had an episode of chest pain after vomiting. PO intolerance in ER. Symptoms have been progressively worsening over time - today she had multiple episodes of vomiting and diarrhea. Unable to tolerate small sips of liquid in ER without vomiting. ER Course: NSS, Zofran x 2, Pepcid, Tylenol 1gm Principal Diagnosis anaplasmosis Discharge Exam Constitutional: WD/WN, vitals as above no acute distress Eyes: EOM intact bilaterally; no conjunctival abnormality ENMT: external ear and nose normal, oropharynx normal Neck: trachea midline, no thyromegaly normal visual inspection Respiratory: normal respiratory effort, lungs clear to auscultation no respiratory distress Cardiovascular: RRR, no murmur, no edema Gastrointestinal (Abdomen): Inspection/Auscultation: abdomen normal to inspection; abdomen not distended Percussion/Palpation: abdomen soft; abdomen nontender, no guarding and abdomen not rigid Musculoskeletal: no cyanosis or clubbing, extremities motor strength 5/5 Skin: no rashes, warm and dry Neurologic: moves all extremities and awake Psychiatric: Orientation: alert, oriented to person and cooperative Discharge Data Allergies Allergy/AdvReac Type Severity Reaction Status Date / Time Sulfa (Sulfonamide Allergy Intermediate METAL Verified 10/15/20 20:36 Antibiotics) TASTE IN MOUTH, TONGUE SWELLS UP latex Allergy Unknown RASH Verified 10/15/20 20:36 Consultations 10/15/20 22:08 ED Decision to Admit Stat 10/20/20 16:47 Consult Infectious Diseases Routine Ordered Studies 10/15/20 17:42 CT head/brain wo con Stat 10/15/20 19:38 CT abd pelvis IV con only Stat 10/18/20 11:59 US abdomen limited Urgent Hospital Course (1) Nausea vomiting and diarrhea: Viral gastroenteritis vs other infectious gastroenteritis initially thought, but was still having fevers through Tuesday (10/18). - Final stool culture negative. - Checking O & P - patient is on well water at home. Received, but not back yet. - Worse on 10/18 with continued fevers. RUQ u/s on 10/18 was negative for ga llbladder pathology. Lipase normal. - Checking for tick-borne illnesses as she is outside frequently and had recently had an engorged tick on her. Started Flagyl for possible parasitic infection. - Continue doxycycline - Stop Flagyl. I think GI illness (like Vibrio) less likely. The shrimp she ate was cooked, so no raw seafood exposure after all. 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 will discharge on antibiotics. PCR later confirmed this. (2) HTN (hypertension): BP today was 160/75. - Continue home lisinopril 20mg po daily - Continue diltiazem (3) CAD (coronary artery disease): Chronic. Reproducible chest wall pain. No indication of acute ischemia. Not clear why she's not on ASA, beta-kam, or statin. - Monitor - Continue home nitro PRN (4) PAF (paroxysmal atrial fibrillation): S/p ablation. Now in NSR. - Continue home diltiazem 120 mg PO daily - Not on anticoagulation at home (5) GERD (gastroesophageal reflux disease): Chronic. - Continue Pepcid (6) Congestion of nasal sinus: Chronic. - Continue nasal saline, Flonase, & Mucinex. (7) DVT prophylaxis: Lovenox 40 mg SQ daily Total Time Total Time Spent Total Time Spent (In Minutes): 32 Total Time Includes: Examination of the Patient, Discharge Planning and Medication Reconciliation Discharge Plan Discharge Items Patient Disposition: Home - Self-Care Reason For Visit: N/V/D/PO INTOLERANCE Discharge Diagnosis: N/V/D PO intolerance Activity: Resume your previous activity Non-emergency contact: Primary Care Provider Call non-emergency contact if: you have any medication questions Follow-up/Referrals: Zulay Denton CRNP [Primary Care Provider] - 10/24/20 11:00 am Diet: Heart Healthy Addtl Attending Provider Instructions: Viral gastroenteritis YOU WERE ALSO FOUND TO HAVE ANAPLASMOSIS - Checking for tick-borne illnesses as she is outside frequently and had recently had an engorged tick on her. Started Flagyl for possible parasitic infection. - Continue doxycycline X9 DAYS TOTAL In regards to your constipation. Likely was worsened by being in bed while you were in the hospital. Will recommend a liquid diet until you have a Bowel movement. Will recommend miralax twice a day until you have a BM. Pending Studies at Discharge: No Stand-Alone Forms: [facility], Smoking Cessation Medications and DC Order Prescriptions: New doxycycline hyclate 100 mg Capsule 100 mg PO BID 9 Days Qty: 18 RF: 0 docusate sodium 100 mg Capsule 100 mg PO BID Qty: 60 RF: 0 polyethylene glycol 3350 [Miralax] 17 gram/dose powder 17 g PO BID 7 Days Qty: 238 RF: 0 Continued multivitamin [Multiple Vitamins] Tablet 1 tab PO DAILY RF: 0 clobetasol 0.05 % cream 1 applic topical BID PRN (Reason: Rash) RF: 0 omeprazole 40 mg capsule,delayed release(DR/EC) 40 mg PO QAM RF: 0 lisinopril 10 mg tablet 20 mg PO DAILY RF: 0 nitroglycerin 0.4 mg tablet, sublingual 0.4 mg Sublingual UD PRN (Reason: Chest Pain) RF: 0 albuterol sulfate 90 mcg/actuation Hfa Aerosol Inhaler 2 puff INHALATION Q6H PRN (Reason: Shortness Of Breath Or Wheezing) RF: 0 fluticasone propionate [Flonase Allergy Relief] 50 mcg/actuation [place],Suspension 2 spray INTRANASAL BID RF: 0 diltiazem HCl 120 mg Capsule,Extended Release 24 Hr 120 mg PO DAILY RF: 0 cholecalciferol (vitamin D3) [Vitamin D3] 50 mcg (2,000 unit) Tablet 150 mcg PO DAILY RF: 0 hydrochlorothiazide 25 mg tablet 12.5 mg PO DAILY RF: 0 omega-3 fatty acids Capsule 1,000 mg PO DAILY RF: 0 guaifenesin [Mucinex] 600 mg Tablet Extended Release 12hr 600 mg PO DAILY RF: 0 diphenhydramine HCl 50 mg Tablet 50 mg PO HS PRN (Reason: Insomnia) RF: 0 albuterol sulfate 2.5 mg /3 mL (0.083 %) solution for nebulization 2.5 mg continuous nebulization TID PRN (Reason: Shortness Of Breath Or Wheezing) RF: 0 calcium carb-D3-mag ox-zinc ox 1 tab PO DAILY RF: 0 Discharge Orders: Discharge Order (Routine); Ordered 10/22/20 Ordered By: Elias Portillo Admission Data Admit Date/Time: 10/15/20 22:25 Attending Provider: Elias Portillo Admit Provider: Jailyn Nunez Primary Care Provider: Zulay Denton Other Providers: Roney Drake ; Gatito Hill ; Marguerite Arroyo ; Bill Nunez I. ; Avery Pedroza II ; Lois Landrum ; Jay Best Other Interventions: Discharge Summary Assessment (RN) Last Done: 10/22/20 17:49 Coding Level of Care Code D/C Day Management >30 mins Diagnoses Nausea vomiting and diarrhea R11.2; R19.7 HTN (hypertension) I10 Hypertension type: essential hypertension CAD (coronary artery disease) I25.10 Coronary Disease-Associated Artery/Lesion type: [place] artery [place] vs. transplanted heart: [place] heart Associated angina: without angina PAF (paroxysmal atrial fibrillation) I48.0 GERD (gastroesophageal reflux disease) K21.9 Esophagitis presence: esophagitis presence not specified Congestion of nasal sinus R09.81 DVT prophylaxis Z29.9
== END 2020-10-22 18:37 | disposition home or self-care (01) | DRG 392 ==
LOC: ED 16:35 → SUATTDRO 22:25 → 2W 22:25

== ENCOUNTER 2021-11-20 15:03 | Inpatient (IN) ==
[2021-11-20] MEDS ORDERED: MoRPHine SULFATE 4 MG/ML 1 ML CARP\\VIAL IV STA (15:56)
[2021-11-20] MEDS ORDERED: SODIUM CHLORIDE 0.9% 500 ML IV STA (15:56)
[2021-11-20] MEDS ORDERED: ONDANSETRON INJ 2 MG/ML 2 ML VIAL IV STA (15:56)
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
[2021-11-20 16:10] LABS: Basophils # (auto) 0.04 K/uL (0-0.2); Basophils % (auto) 0.6 %; Eosinophils # (auto) 0.01 K/uL (0-0.50); Eosinophils % (auto) 0.1 %; Hematocrit (blood only) 35.3 % (34.1-44.9); Hemoglobin 11.8 g/dl (12.0-16.0); Immature Granulocytes # (auto) 0.03 K/uL (0.00-0.02); Immature Granulocytes % (auto) 0.4 %; Lymphocytes # (auto) 1.23 K/uL (1.2-3.4); Lymphocytes % (auto) 17.7 %; Mean Corpuscular Hemoglobin 27.4 pg (25.0-34.0); Mean Corpuscular Hgb Conc 33.4 g/dL (32.0-36.0); Mean Corpuscular Volume 81.9 fL (80.0-100.0); Mean Platelet Volume 10.7 fL (9.4-12.3); Monocytes # (auto) 0.45 K/uL (0.24-0.82); Monocytes % (auto) 6.5 %; Neutrophils # (auto) 5.18 K/uL (1.4-6.5); Neutrophils % (auto) 74.7 %; Platelet Count 272 K/uL (130-400); RDW Coefficient of Variation 12.7 % (11.5-14.5); RDW Standard Deviation 38.1 fL (36.4-46.3); Red Blood Count 4.31 M/uL (3.93-5.22); White Blood Count 6.94 K/ul (4.8-10.8)
--- NOTE | 2021-11-20 16:43 | CT Scan Report ---
CT abd pelvis wo con CLINICAL HISTORY: diffuse pain and vomiting eval for obstruciton TECHNIQUE: Helical axial images of the abdomen and pelvis were obtained. Automated dose lowering tech niques and/or adjustment according to patient size were utilized for this exam. This exam was perfor med without intravenous contrast. CT DOSE: 1202.64 mGycm COMPARISON: Comparison is made to CT abdomen pelvis 10/15/2020 FINDINGS: Lower chest: Bibasilar atelectasis versus scarring is seen. Liver: Unremarkable. No focal lesions are seen. Gallbladder and biliary tree: No calcified gallstones. Normal caliber wall. No intra- or extrahepatic biliary ductal dilation. Pancreas: Unremarkable, no focal lesions. Spleen: Splenule is incidentally noted. Adrenals: Unremarkable. Kidneys and ureters: There is a 21 mm exophytic cyst in the right kidney. Left hyperdense lesion is s een likely representing proteinaceous/hemorrhagic cyst. Bladder: Unremarkable. Reproductive organs: Unremarkable. Bowel: Diverticulosis is seen without evidence of diverticulitis. The appendix is normal. A small hia jake hernia is seen. No evidence of bowel obstruction is seen. Lymph nodes Retroperitoneal: Unremarkable. Mesenteric: Unremarkable. Pelvic: Unremarkable. Peritoneum: Normal. Vessels: Atherosclerotic calcifications are seen. Abdominal wall: Unremarkable. Bones: Unremarkable. IMPRESSION: 1. No acute abnormalities and in particular no evidence of bowel obstruction. 2. Stable bilateral renal cysts. ACT 112: Negative or not required by law. Electronically signed by: Dominik Romo M.D. 11/20/2021 4:41 PM
[2021-11-20 16:53] LABS: Albumin Globulin Ratio 1.2 (0.9-2); Albumin Level 4.3 gm/dl (3.4-5.0); Bilirubin,Total 0.3 mg/dl (0.2-1.0); Calcium 9.3 mg/dl (8.5-10.1); Creatinine Clr Calc Pharmacy 114.1 ml/min; Est GFR (African American) 114.9 ml/min; Est GFR (Non-African American) 99.1 ml/min; Globulin 3.5 gm/dl (2.5-4.0); Potassium 3.5 mmol/L (3.5-5.1); Total Protein 7.8 gm/dl (6.0-8.3)
[2021-11-20 16:56] LABS: Troponin I High Sensitivity 8.1 pg/ml (0-14)
[2021-11-20 17:14] LABS: Lyme Ab IgG w/WB Rflx Negative (Negative); Lyme Ab IgM w/WB Rflx Negative (Negative)
[2021-11-20 17:18] LABS: Appearance Urine Clear (Clear); Bacteria Urine Automated Negative (Negative); Bilirubin Urine Negative (Negative); Blood Urine 1+ (Negative); Color Urine Yellow; Glucose Urine UA Negative (Negative); Ketones Urine Negative (Negative); Leukocyte Esterase Urine Negative (Negative); Nitrite Urine Negative (Negative); Protein Urine Trace (Negative); RBC Urine Automated 0-4 /hpf (0-4); Specific Gravity Urine 1.011 (1.000-1.030); Urobilinogen Urine Negative (Negative); pH Urine 5.5 (4.5-7.5)
--- NOTE | 2021-11-20 17:35 | XRay Report ---
SINGLE VIEW CHEST CLINICAL HISTORY: Atypical chest pain FINDINGS: An AP, portable, upright chest radiograph is compared to study dated 10/15/2020. The heart is enlarged. The pulmonary vasculature is noncongested. Chronic interstitial thickening is similar to p revious. There is bibasilar scarring/atelectasis. No airspace consolidation or large pleural effusion is identified. No pneumothorax is seen. The skeletal structures are osteopenic. The bony thorax is g rossly intact. IMPRESSION: Cardiomegaly with no acute cardiopulmonary abnormality. ACT 112: Negative or not required by law. Electronically signed by: Silviano Carrillo M.D. 11/20/2021 5:33 PM
[2021-11-20 17:49] LABS: Influenza A virus by PCR Negative (Neg); Influenza B virus by PCR Negative (Neg); RSV by PCR Negative (Neg); SARS CoV2 RNA(COVID-19) InHosp NEGATIVE (Negative)
[2021-11-20] MEDS ORDERED: ACETAMINOPHEN 325 MG TAB PO STA (17:49)
[2021-11-20] MEDS ORDERED: KETOROLAC TROMETHAMINE 15 MG/ML VIAL IV ONE (19:19)
--- NOTE | 2021-11-20 19:21 | History & Physical Report ---
Date of Service November 20, 2021 Assessment & Plan (1) Fever: (2) Nausea & vomiting: Plan 66 year old female who presented to ED with fever, chills, N/V since yesterday after her back injection on Tuesday at [facility] office. Unable to tolerate any po due to constant retching and hasn't taken any pills since yesterday. Fever, chills, rigors, N/V- Had fever of upto 101 at home, here at 37.8 C. CBC normal, procal normal. Blood clx pending. UA unremarkable. CXR and CT A/P unremarkable. Back exam unremarkable except for some midline tenderness. Started after back injection on Tuesday ? medication side effect vs back infection vs bacteremia vs others. Will start on empiric rocephin for now pending clx results. Check procal, CRP, ESR. Consult ortho if this could be related to the injection she received considering temporal relation. Might need to consider lumbar spine CT to r/o any deep infection but will await ortho eval first. For her symptoms treat symptomatically for now with IVF, iv zofran prn, tylenol prn, IV PPI, toradol prn. Follow up on final clx results. Her chest and abd pain is from constant retching/dry heaving and would not warrant any cardiac work up at this point. Asthma- no exacerbation. continue home inhalers, singulair Migraine- o migraine for past 20 years but currently having a headache. tylenol, toradol prn. IVF. GERD- continue IV PPI for now- change to po once able to tolerate Atrial tachycardia- continue home cardizem hs H/o PAF s/p ablation DVT ppx- sc lovenox Dispo- Medsurg Full code History of Present Illness Chief Complaint: fever, chills, N/V Primary Care Provider: Rosy Cummins PA-C 66 year old female with h/o back pain, GERD, h/o PAF s/p ablation, atrial tachycardia, [place] on CPAP, migraine, asthma who presented to ED with fever, chills, rigors, nausea, vomiting and dry heaving. She was in her usual state of health until Tuesday 2 days back. She had her back injection by Dr Monzon of [facility] (2nd time back injection). That night she felt 'yucky' but was still able to hold her pills down. Yesterday, she had fever, rigors and chills with nausea and vomiting and unable to hold any pills down. Fever was 100-101 F. She has not taken any pills since yesterday due to N/V. Now she has constant dry heaving and her chest and abdomen is sore from that. Also feels as if she is not able to catch her breath. No sick contacts. No rash or joint pain. No cough or wheezing. No similar episodes before. States this is her second back injection so far (she doesn't know the name of the medication and states this was different from before). She called Dr Monzon's office to see if this is medication side effect but did not get answered. She could not wait anymore at home and hence came to the ED today. She now has a headache too from all of this. Has history of migraine but has not had one in 20 years. She was given morphine and zofran in ED and felt better during my encounter. Allergies Allergy/AdvReac Type Severity Reaction Status Date / Time Sulfa (Sulfonamide Allergy Intermediate METAL Verified 11/20/21 17:26 Antibiotics) TASTE IN MOUTH, TONGUE SWELLS UP latex Allergy Unknown RASH Verified 11/20/21 17:26 Home Medications Medication Instructions Recorded Confirmed Type albuterol sulfate 90 mcg/actuation 2 puff inhalation Q6H PRN 06/13/18 11/20/21 History aerosol inhaler Shortness Of Breath Or Wheezing diltiazem HCl 120 mg capsule,24 120 mg PO DAILY 06/13/18 11/20/21 History hr,extended release fluticasone propionate 50 2 spray intranasal BID PRN 06/13/18 11/20/21 History mcg/actuation nasal Congestion spray,suspension (Flonase Allergy Relief) lisinopril 10 mg tablet 20 mg PO DAILY 06/13/18 11/20/21 History multivitamin (Multiple Vitamins) 1 tab PO DAILY 06/13/18 11/20/21 History nitroglycerin 0.4 mg sublingual 0.4 mg sublingual UD PRN Chest Pain 06/13/18 11/20/21 History tablet omeprazole 40 mg capsule,delayed 40 mg PO QAM 06/13/18 11/20/21 History release calcium carb-D3-mag ox-zinc ox 1 tab PO DAILY 10/15/20 11/20/21 History cholecalciferol (vitamin D3) 50 150 mcg PO DAILY 10/15/20 11/20/21 History mcg (2,000 unit) tablet (Vitamin D3) guaifenesin 600 mg tablet, 600 mg PO DAILY PRN Congestion 10/15/20 11/20/21 History extended release 12 hr (Mucinex) hydrochlorothiazide 25 mg tablet 12.5 mg PO DAILY 10/15/20 11/20/21 History docusate sodium 100 mg capsule 100 mg PO BID #60 caps 10/22/20 11/20/21 Rx beclomethasone dipropionate 80 2 inh inhalation BID 11/20/21 11/20/21 History mcg/actuation HFA breath activated aerosol (Qvar RediHaler) levocetirizine 5 mg tablet (Xyzal) 5 mg PO HS 11/20/21 11/20/21 History montelukast 10 mg tablet 10 mg PO HS 11/20/21 11/20/21 History (Singulair) omega-3 fatty acids 1,000 mg 1,000 mg PO DAILY 11/20/21 11/20/21 History capsule triamcinolone acetonide 0.1 % 1 applic topical BID PRN Skin 11/20/21 11/20/21 History topical cream Irritation Past Med/Surg History Medical History (Updated 11/20/21 @ 19:35 by Andrea Alvarado MD) CAD (coronary artery disease) GERD (gastroesophageal reflux disease) HTN (hypertension) Migraine PAF (paroxysmal atrial fibrillation) Social History Smoking Status: Never smoker Hx Alcohol Use: Yes Alcohol type: beer Hx Substance Use: No Preferred Language: Estonian Communication Ability: Effective Distribution Associate Required: No Beliefs That Will Affect Care: None Current Living Situation: Alone Feels Safe at Home: Yes Assistive Devices: Glasses Review of Systems Review of Systems: General: Lying comfortably in bed, not in acute distress, on room air HEENT: EOMI, KAREN, MMM Chest: Clear breath sounds bilaterally, no wheezes or crackles CVS: Regular rate and rhythm, normal heart sounds, no murmur Abdomen: Soft, non tender, not distended, normal bowel sounds Neuro: Awake, alert, oriented, conversing well, non focal Extremities: No cyanosis, clubbing or edema Back: Tenderness on palpation of back at midline but no cellulitis or wound noted Results & Data Results & Data ([facility]) Vital Signs (Past 12 Hours) Vital Signs Temp Pulse Pulse Resp BP BP Pulse Ox 11/20/21 19:00 74 18 145/113 H 91 11/20/21 17:10 82 18 161/92 H 92 11/20/21 15:56 96 11/20/21 15:57 83 18 161/84 H 95 11/20/21 15:10 91 11/20/21 15:10 37.8 C H 85 18 174/80 H 94 O2 Del Method O2 Flow Rate 11/20/21 19:00 Room Air, Nasal Cannula 2 11/20/21 17:10 Nasal Cannula 2 11/20/21 15:56 Nasal Cannula 2 11/20/21 15:57 Room Air 11/20/21 15:10 Room Air 0 11/20/21 15:10 Room Air Laboratory Results Short CBC 11/20/21 Range/Units 15:39 WBC 6.94 (4.8-10.8) K/ul Hgb 11.8 L (12.0-16.0) g/dl Hct 35.3 (34.1-44.9) % Plt Count 272 (130-400) K/uL BMP 11/20/21 15:39 Sodium 137 Potassium 3.5 Chloride 100 Carbon Dioxide 27 BUN 11 Creatinine 0.55 L Glucose 109 H Calcium 9.3 Liver Function 11/20/21 Range/Units 15:39 Total Bilirubin 0.3 (0.2-1.0) mg/dl AST 19 (13-39) U/L ALT 16 (7-52) U/L Alkaline Phosphatase 58 (34-104) U/L Albumin 4.3 (3.4-5.0) gm/dl Urine 11/20/21 Range/Units 17:03 Urine Color Yellow Urine Appearance Clear (Clear) Urine pH 5.5 (4.5-7.5) Ur Specific [place] 1.011 (1.000-1.030) Urine Protein Trace H (Negative) Urine Glucose (UA) Negative (Negative) Diagnostic Findings Chest X-Ray 11/20/21 15:56 SINGLE VIEW CHEST CLINICAL HISTORY: Atypical chest pain FINDINGS: An AP, portable, upright chest radiograph is compared to study dated 10/15/2020. The heart is enlarged. The pulmonary vasculature is noncongested. Chronic interstitial thickening is similar to previous. There is bibasilar scarring/atelectasis. No airspace consolidation or large pleural effusion is identified. No pneumothorax is seen. The skeletal structures are osteopenic. The bony thorax is grossly intact. IMPRESSION: Cardiomegaly with no acute cardiopulmonary abnormality. ACT 112: Negative or not required by law. Electronically signed by: Silviano Carrillo M.D. 11/20/2021 5:33 PM Abdomen/Pelvis CT 11/20/21 15:57 CT abd pelvis wo con CLINICAL HISTORY: diffuse pain and vomiting eval for obstruciton TECHNIQUE: Helical axial images of the abdomen and pelvis were obtained. Automated dose lowering techniques and/or adjustment according to patient size were utilized for this exam. This exam was performed without intravenous contrast. CT DOSE: 1202.64 mGycm COMPARISON: Comparison is made to CT abdomen pelvis 10/15/2020 FINDINGS: Lower chest: Bibasilar atelectasis versus scarring is seen. Liver: Unremarkable. No focal lesions are seen. Gallbladder and biliary tree: No calcified gallstones. Normal caliber wall. No intra- or extrahepatic biliary ductal dilation. Pancreas: Unremarkable, no focal lesions. Spleen: Splenule is incidentally noted. Adrenals: Unremarkable. Kidneys and ureters: There is a 21 mm exophytic cyst in the right kidney. Left hyperdense lesion is seen likely representing proteinaceous/hemorrhagic cyst. Bladder: Unremarkable. Reproductive organs: Unremarkable. Bowel: Diverticulosis is seen without evidence of diverticulitis. The appendix is normal. A small hiatal hernia is seen. No evidence of bowel obstruction is seen. Lymph nodes Retroperitoneal: Unremarkable. Mesenteric: Unremarkable. Pelvic: Unremarkable. Peritoneum: Normal. Vessels: Atherosclerotic calcifications are seen. Abdominal wall: Unremarkable. Bones: Unremarkable. IMPRESSION: 1. No acute abnormalities and in particular no evidence of bowel obstruction. 2. Stable bilateral renal cysts. ACT 112: Negative or not required by law. Electronically signed by: Dominik Romo M.D. 11/20/2021 4:41 PM Code Status & VTE Plan VTE Prophylaxis Plan VTE Prophylaxis will be ordered: Yes (1) Fever Fever type: unspecified Qualified Code(s): R50.9 - Fever, unspecified
[2021-11-20] MEDS: SODIUM CHLORIDE 0.9% 1000ML 1,000 ML IV SCH (19:44)
[2021-11-20] MEDS ORDERED: cefTRIAXone SODIUM 2,000 MG/70 ML BAG IV ONE (19:45)
[2021-11-20] MEDS ORDERED: ONDANSETRON INJ 2 MG/ML 2 ML VIAL IV PRN (23:57)
[2021-11-20] MEDS ORDERED: ALBUTEROL HFA 8 GM INHALER INH PRN (23:57)
[2021-11-20] MEDS ORDERED: FLUTICASONE PROPIONATE NA SPR 16 GM BTL PRN (23:57)
[2021-11-20] MEDS ORDERED: TRIAMCINOLONE ACET 0.1% CR 15 GM TUBE TOP PRN (23:57)
[2021-11-21] MEDS: SODIUM CHLORIDE 0.9% 1000ML 1,000 ML IV SCH ×4 (00:07→19:43)
[2021-11-21] MEDS ORDERED: ACETAMINOPHEN 325 MG TAB ONE (00:40)
[2021-11-21] MEDS ORDERED: ONDANSETRON INJ 2 MG/ML 2 ML VIAL ONE (00:41)
[2021-11-21] MEDS: BECLOMETHASONE DIP HFA 80 MCG 8.7G INH INH SCH (01:11)
[2021-11-21] MEDS: CETIRIZINE HCL 10 MG TABLET PO SCH ×2 (01:14→21:08)
[2021-11-21] MEDS: dilTIAZem ER 120 MG CAPCR PO SCH ×2 (01:26→21:08)
[2021-11-21] MEDS: MONTELUKAST SODIUM 10 MG TABLET PO SCH ×2 (01:27→21:08)
[2021-11-21] MEDS: PANTOprazole 40 MG TAB PO SCH ×3 (01:28→21:08)
[2021-11-21 07:16] LABS: BUN Creatinine Ratio 22.8 (10-20); Calcium 8.3 mg/dl (8.5-10.1); Creatinine Clr Calc Pharmacy 109.8 ml/min; Est GFR (African American) 113.5 ml/min; Potassium 3.3 mmol/L (3.5-5.1)
[2021-11-21 07:28] LABS: Hematocrit (blood only) 33.6 % (34.1-44.9); Hemoglobin 10.7 g/dl (12.0-16.0); Mean Corpuscular Hemoglobin 27.6 pg (25.0-34.0); Mean Corpuscular Hgb Conc 31.8 g/dL (32.0-36.0); Mean Corpuscular Volume 86.8 fL (80.0-100.0); Mean Platelet Volume 10.6 fL (9.4-12.3); Platelet Count 215 K/uL (130-400); RDW Coefficient of Variation 12.9 % (11.5-14.5); RDW Standard Deviation 40.7 fL (36.4-46.3); Red Blood Count 3.87 M/uL (3.93-5.22); White Blood Count 5.67 K/ul (4.8-10.8)
[2021-11-21] MEDS: ENOXAPARIN INJ 40 MG/0.4 ML SYR SQ SCH (08:36)
[2021-11-21] MEDS: lisinopril 20 MG TAB PO SCH (08:36)
[2021-11-21] MEDS: FLUTICASONE FUROATE 200MCG 14 PUFFS/INHALER INH SCH (08:36)
[2021-11-21] MEDS: ACETAMINOPHEN 325 MG TAB PO PRN ×2 (09:53→18:27)
[2021-11-21] MEDS ORDERED: POTASSIUM CHLORIDE CRTAB 20 MEQ TABCR PO STA ×2 (09:55→12:14)
--- NOTE | 2021-11-21 10:32 | Orthopedic Consultation ---
Date of Consultation November 21, 2021 Assessment & Plan (1) Spinal stenosis, lumbar region with neurogenic claudication: At this time I would like to update an MRI lumbar spine to include x-rays. This to be thorough to ensure there is no issues with lumbar spine and also identify worsening neural compression. History of Present Illness Reason for Consultation: Back pain status post epidural injection Attending Physician: Melvi Rebolledo MD History of Present Illness This is a 66-year-old female who presents status post lumbar epidural injection Tuesday of this week. She had a significant episode of nausea and vomiting for the past few days. She felt quite miserable. This morning she is more comfortable. She is up and ambulating without difficulty. She does not describe radicular complaints involving the left buttock into the left thigh. Does not extend to the foot. It is debilitating with prolonged standing or w alking. Right lower extremity is asymptomatic. Allergies Allergy/AdvReac Type Severity Reaction Status Date / Time Sulfa (Sulfonamide Allergy Intermediate METAL Verified 11/20/21 17:26 Antibiotics) TASTE IN MOUTH, TONGUE SWELLS UP latex Allergy Unknown RASH Verified 11/20/21 17:26 Home Medications Medication Instructions Recorded Confirmed Type albuterol sulfate 90 mcg/actuation 2 puff inhalation Q6H PRN 06/13/18 11/20/21 History aerosol inhaler Shortness Of Breath Or Wheezing diltiazem HCl 120 mg capsule,24 120 mg PO DAILY 06/13/18 11/20/21 History hr,extended release fluticasone propionate 50 2 spray intranasal BID PRN 06/13/18 11/20/21 History mcg/actuation nasal Congestion spray,suspension (Flonase Allergy Relief) lisinopril 10 mg tablet 20 mg PO DAILY 06/13/18 11/20/21 History multivitamin (Multiple Vitamins) 1 tab PO DAILY 06/13/18 11/20/21 History nitroglycerin 0.4 mg sublingual 0.4 mg sublingual UD PRN Chest Pain 06/13/18 11/20/21 History tablet omeprazole 40 mg capsule,delayed 40 mg PO QAM 06/13/18 11/20/21 History release calcium carb-D3-mag ox-zinc ox 1 tab PO DAILY 10/15/20 11/20/21 History cholecalciferol (vitamin D3) 50 150 mcg PO DAILY 10/15/20 11/20/21 History mcg (2,000 unit) tablet (Vitamin D3) guaifenesin 600 mg tablet, 600 mg PO DAILY PRN Congestion 10/15/20 11/20/21 History extended release 12 hr (Mucinex) hydrochlorothiazide 25 mg tablet 12.5 mg PO DAILY 10/15/20 11/20/21 History docusate sodium 100 mg capsule 100 mg PO BID #60 caps 10/22/20 11/20/21 Rx beclomethasone dipropionate 80 2 inh inhalation BID 11/20/21 11/20/21 History mcg/actuation HFA breath activated aerosol (Qvar RediHaler) levocetirizine 5 mg tablet (Xyzal) 5 mg PO HS 11/20/21 11/20/21 History montelukast 10 mg tablet 10 mg PO HS 11/20/21 11/20/21 History (Singulair) omega-3 fatty acids 1,000 mg 1,000 mg PO DAILY 11/20/21 11/20/21 History capsule triamcinolone acetonide 0.1 % 1 applic topical BID PRN Skin 11/20/21 11/20/21 History topical cream Irritation Patient History Medical History (Updated 11/21/21 @ 10:32 by Dick Greer DO) CAD (coronary artery disease) GERD (gastroesophageal reflux disease) HTN (hypertension) Migraine PAF (paroxysmal atrial fibrillation) Social History Smoking Status: Never smoker Second Hand Exposure: No; Do You Dip or Chew Tobacco: No; Tobacco Cessation Education Requested by Patient: No Hx Alcohol Use: Yes Alcohol type: wine Hx Substance Use: No Preferred Language: Estonian Communication Ability: Effective Breaker Operator Required: No Beliefs That Will Affect Care: None Current Living Situation: Alone Other Information That Helps Us Care for You: No Feels Safe at Home: Yes Safety Concerns: Feels Safe At This Time Assistive Devices: CPAP Physical Exam Physical Exam: On exam she is in the chair at the bedside. She is able to stand without difficulty. She has no tenderness palpation lumbar spine. There is no abnormal skin markings. She is renal strength testing lower extremities. Results & Data ([facility]) Vital Signs (Past 12 Hours) Vital Signs Temp Pulse Pulse Pulse Resp BP Pulse Ox 11/21/21 08:30 11/21/21 08:30 36.7 C 76 16 165/82 H 93 11/21/21 07:16 67 17 96 11/21/21 02:31 70 16 95 11/21/21 00:10 36.7 C 70 18 168/81 H 95 11/20/21 23:40 96 11/20/21 23:00 71 18 145/81 H 96 O2 Del Method O2 Flow Rate 11/21/21 08:30 Nasal Cannula 2 11/21/21 08:30 Room Air 11/21/21 07:16 2 11/21/21 02:31 2 11/21/21 00:10 Room Air 11/20/21 23:40 2 11/20/21 23:00 Room Air
--- NOTE | 2021-11-21 12:53 | XRay Report ---
XR lumbar spine 2-3V CLINICAL HISTORY: Back and left leg pain. COMPARISON STUDY: Lumbar spine MRI 03/24/2021. FINDINGS: Moderate facet degenerative changes within the lower lumbar spine. There is mild disc space narrowing at L4-L5, unchanged. There is 4 mm of retrolisthesis of L4 on L5. Small endplate osteophyt es within the lower lumbar spine. There are/sacrum is intact. No fractures identified. IMPRESSION: 1. No fractures within the lumbar spine. 2. Mild degenerative disc disease and grade 1 anterolisthesis of L4 on L5, unchanged. 3. Moderate facet osteoarthritis within the lower lumbar spine. ACT 112: Negative or not required by law. Electronically signed by: Lan Tapia M.D. 11/21/2021 12:50 PM
--- NOTE | 2021-11-21 13:01 | Magnetic Resonance Report ---
LUMBAR SPINE MRI HISTORY: back and left leg pain TECHNIQUE: Multiplanar multisequence MRI of the lumbar spine was performed without the use of contras t. COMPARISON: Lumbar spine MRI 03/24/2021. FINDINGS: For the purpose of the report the L5-S1 disc space will be located on axial image 31 of 34. No fractures within the lumbar spine. There is mild disc space narrowing at T12-L1 and L4-L5. This re mciheal unchanged. There are few small scattered vertebral body hemangioma is again noted. Stable 1 cm Tarlov cysts at S2. Cholelithiasis again noted. There are few scattered T2 hyperintense lesions withi n the left kidney. These remain unchanged in therefore favors cysts. Paravertebral soft tissues are u nremarkable. Moderate facet degenerative changes at L4-5 and severe facet degenerative changes at L5- S1. This is also unchanged. The conus terminates at the L1-L2 disc space level. There is 3 mm of retr olisthesis of L4 on L5, unchanged. T12-L1: Small broad-based posterior disc bulge without significant central canal or neural foraminal narrowing. L1-L2: There is a small focal central disc protrusion measuring 4 mm and demonstrating mild superior subligamentous migration. This remains unchanged. No significant central canal or neural foraminal na rrowing. There is also a tiny broad-based posterior disc bulge at this level. L2-L3: Tiny broad-based posterior disc bulge without significant central canal or neural foraminal na rrowing. L3-L4: Small broad-based posterior disc bulge asymmetric to the left without significant central nancy l or right-sided neural foraminal narrowing. There is mild left-sided neural foraminal narrowing. L4-L5: Broad-based posterior disc bulge with significant ligamentum and facet hypertrophy resulting i n [id number] central canal and mild to moderate left-sided neural foraminal narrowing. There is mild right-sided neural foraminal narrowing. L5-S1: Small broad-based posterior disc bulge with ligamentum and facet hypertrophy resulting in mild to moderate bilateral neural foraminal narrowing. No significant central canal narrowing. IMPRESSION: 1. Overall, similar appearance to the prior lumbar spine MRI. 2. Mild to moderate central canal and left-sided neural foraminal narrowing at L4-5 as described abov e. 3. No fractures identified. 4. Cholelithiasis. 5. Grade 1 anterolisthesis of L4 on L5 again noted. 6. Moderate to severe facet osteoarthritis within the lower lumbar spine. ACT 112: Negative or not required by law. Electronically signed by: Lan Tapia M.D. 11/21/2021 12:59 PM
[2021-11-21] MEDS: cefTRIAXone SODIUM 2,000 MG/70 ML BAG IV SCH (19:43)
[2021-11-21] MEDS ORDERED: KETOROLAC TROMETHAMINE 15 MG/ML VIAL IV ONE (19:51)
[2021-11-21] MEDS: guaiFENesin 600 MG TABCR PO SCH (21:08)
--- NOTE | 2021-11-21 22:08 | Hospitalist Progress Note ---
Date of Service November 21, 2021 Assessment & Plan (1) Fever: (2) Nausea & vomiting: Plan 66 year old female who presented to ED with fever, chills, N/V since yesterday after her back injection on Tuesday at [facility]. Unable to tolerate any po due to constant retching and hasn't taken any pills since yesterday. Fever, chills, rigors, N/V- Had fever with temp of upto 101 at home Temp maxt in the hospital 37.8 C since admission CBC normal, procal normal. Blood cx pending Currently on IV abx with ceftiaxone Ortho on board MRI Lumbar spine showed similar appearance to the prior lumbar spine MRI. Mild to moderate central canal and left-sided neural foraminal narrowing at L4-5 Moderate to severe facet osteoarthritis within the lower lumbar spine. Lumbar xray showed Mild degenerative disc disease and grade 1 anterolisthesis of L4 on L5, unchanged. Clinically improved. Asthma no exacerbation. continue home inhalers, singulair Migraine Continue tylenol, toradol prn. IVF. Clinically improves GERD Will transition to PO PPI Stable Atrial tachycardia- H/o PAF s/p ablation continue home cardizem hs DVT ppx- sc lovenox Full code Admission and Anticipated Discharge Date Admission Date: November 20, 2021 Subjective Patient was seen and follow-up of nausea vomiting and fever Lying in bed with no acute distress Patient said symptoms much better this morning She was able to tolerate clear liquid diet this morning Denies any chest pain, palpitation, dizziness, shortness of breath. Review of Systems Review of Systems: All systems reviewed & are unremarkable except as noted in Subjective Physical Exam Physical Exam: General- No acute distress Head- atraumatic Eyes- PERRL, EOMI, ENT- oropharynx clear Neck- supple, no JVD Lungs- clear to auscultation Heart- regular rhythm; no murmur Abdomen- normal bowel sounds, soft, nontender Extremities- no calf tenderness Neuro- alert, oriented x 3; PERRL, EOMI; no facial palsy; no dysarthria Skin- warm & dry Results & Data Results & Data ([facility]) Vital Signs (Past 12 Hours) Vital Signs Temp Pulse Pulse Resp BP Pulse Ox O2 Del Method 11/21/21 21:07 39 C H 87 159/74 H 11/21/21 19:38 38.8 C H 07/16/22 15:51 37.4 C 68 20 152/83 H 97 Room Air (1) Fever Fever type: unspecified Qualified Code(s): R50.9 - Fever, unspecified
[2021-11-22] MEDS: ACETAMINOPHEN 325 MG TAB PO PRN ×6 (00:50→23:37)
[2021-11-22] MEDS: SODIUM CHLORIDE 0.9% 1000ML 1,000 ML IV SCH (04:51)
[2021-11-22 07:12] LABS: BUN Creatinine Ratio 21.4 (10-20); Creatinine Clr Calc Pharmacy 89.4 ml/min; Est GFR (African American) 106.1 ml/min; Est GFR (Non-African American) 91.6 ml/min; Potassium 3.4 mmol/L (3.5-5.1)
[2021-11-22] MEDS: FLUTICASONE FUROATE 200MCG 14 PUFFS/INHALER INH SCH (08:19)
[2021-11-22] MEDS: guaiFENesin 600 MG TABCR PO SCH ×2 (08:19→20:26)
[2021-11-22] MEDS: lisinopril 20 MG TAB PO SCH (08:19)
[2021-11-22] MEDS: PANTOprazole 40 MG TAB PO SCH ×2 (08:19→20:27)
[2021-11-22] MEDS: ENOXAPARIN INJ 40 MG/0.4 ML SYR SQ SCH (08:20)
[2021-11-22] MEDS ORDERED: KETOROLAC TROMETHAMINE 15 MG/ML VIAL IV ONE (08:41)
--- NOTE | 2021-11-22 09:18 | Orthopedic Progress Note ---
Date of Service November 22, 2021 Assessment & Plan (1) Spinal stenosis, lumbar region with neurogenic claudication: Plan: I have reviewed lumbar x-rays and MRI personally. Dr. Greer will review them tomorrow with further decision-making. Currently no evidence of infectious process on lumbar MRI to explain her fevers and chills. MRI and x-ray certainly explain her left lower extremity symptoms. Currently not sure source of chills and fever. Will need further work-up. Headaches do not appear to be positional therefore not due to a spinal leak. We will continue to follow. Admission and Anticipated Discharge Date Admission Date: November 20, 2021 Subjective MRI of the lumbar spine and x-rays were performed yesterday. She still has pain rating down the back and left lower extremity. Right leg is asymptomatic. She had a recent injection about [address] Monzon. Since then has noted fevers and chills. Nausea and vomiting have resolved. She also notes a headache since injection but this does not seem to be positional. Still febrile with temperature reading 39.0 yesterday Review of Systems Review of Systems: All systems reviewed & are unremarkable except as noted in HPI & below Physical Exam Physical Exam: Lying in bed uncomfortable Strength is intact bilateral lower extremity Results & Data ([facility]) Vital Signs (Past 12 Hours) Vital Signs Temp Pulse Pulse Pulse Resp BP Pulse Ox 11/22/21 08:05 11/22/21 08:00 37 C 67 18 130/81 93 11/22/21 03:24 78 22 95 11/21/21 22:45 37.6 C H 78 19 125/66 95 O2 Del Method O2 Flow Rate 11/22/21 08:05 Room Air 11/22/21 08:00 Room Air 11/22/21 03:24 2 11/21/21 22:45 CPAP Diagnostic Findings [place], [place] [phone] Magnetic Resonance Report Patient:WILSON PAYAN Admit Date:11/20/21 MR#:[id number] Address1:[address] [place] [address] Acct ID:[id number] Address2: Date:1955 [facility] Zip:[place] [address] Age:66 Location:3E Sex:F Room/Bed:[facility] Att Phy:Melvi Rebolledo M.D. Diagnosis:FEVER, CHILLS, N/V Tila Phy:Rosy Cummins PA-C Service Date:11/21/21 Fam Phy: Interpreting Phy:Lan Tapia MDAdmit Phy:Andrea Alvarado MD Ordering Phy:Dick Greer D.O. cc: ~ LUMBAR SPINE MRI HISTORY: back and left leg pain TECHNIQUE: Multiplanar multisequence MRI of the lumbar spine was performed without the use of contrast. COMPARISON: Lumbar spine MRI 03/24/2021. FINDINGS: For the purpose of the report the L5-S1 disc space will be located on axial image 31 of 34. No fractures within the lumbar spine. There is mild disc space narrowing at T12- L1 and L4-L5. This remains unchanged. There are few small scattered vertebral body hemangioma is again noted. Stable 1 cm Tarlov cysts at S2. Cholelithiasis again noted. There are few scattered T2 hyperintense lesions within the left kidney. These remain unchanged in therefore favors cysts. Paravertebral soft tissues are unremarkable. Moderate facet degenerative changes at L4-5 and severe facet degenerative changes at L5-S1. This is also unchanged. The conus terminates at the L1-L2 disc space level. There is 3 mm of retrolisthesis of L4 on L5, unchanged. T12-L1: Small broad-based posterior disc bulge without significant central canal or neural foraminal narrowing. L1-L2: There is a small focal central disc protrusion measuring 4 mm and demonstrating mild superior subligamentous migration. This remains unchanged. No significant central canal or neural foraminal narrowing. There is also a tiny broad-based posterior disc bulge at this level. L2-L3: Tiny broad-based posterior disc bulge without significant central canal or neural foraminal narrowing. L3-L4: Small broad-based posterior disc bulge asymmetric to the left without significant central canal or right-sided neural foraminal narrowing. There is mild left-sided neural foraminal narrowing. L4-L5: Broad-based posterior disc bulge with significant ligamentum and facet hypertrophy resulting in [id number] central canal and mild to moderate left-sided neural foraminal narrowing. There is mild right-sided neural foraminal narrowing. L5-S1: Small broad-based posterior disc bulge with ligamentum and facet hypertrophy resulting in mild to moderate bilateral neural foraminal narrowing. No significant central canal narrowing. IMPRESSION: 1. Overall, similar appearance to the prior lumbar spine MRI. 2. Mild to moderate central canal and left-sided neural foraminal narrowing at L4-5 as described above. 3. No fractures identified. 4. Cholelithiasis. 5. Grade 1 anterolisthesis of L4 on L5 again noted. 6. Moderate to severe facet osteoarthritis within the lower lumbar spine. ACT 112: Negative or not required by law. Electronically signed by: Lan Tapia M.D. 11/21/2021 12:59 PM Dictated:11/21/21 1250 Transcribed: 11/21/21 1250 [place], [place] [phone] XRay Report Patient:WILSON PAYAN Admit Date:11/20/21 MR#:[id number] Address1:[address] [place] [address] Acct ID:[id number] Address2: Date:1955 [facility] Zip:[place] [address] Age:66 Location: Sex:F Room/Bed:[facility] Att Phy:Melvi Rebolledo M.D. Diagnosis:FEVER, CHILLS, N/V Tila Phy:Rosy Cummins PA-C Service Date:11/21/21 Fam Phy: Interpreting Phy:Lan Tapia MDAdmit Phy:Andrea Alvarado MD Ordering Phy:Dick GreerDBuddyOBuddy cc: ~ XR lumbar spine 2-3V CLINICAL HISTORY: Back and left leg pain. COMPARISON STUDY: Lumbar spine MRI 03/24/2021. FINDINGS: Moderate facet degenerative changes within the lower lumbar spine. There is mild disc space narrowing at L4-L5, unchanged. There is 4 mm of retrolisthesis of L4 on L5. Small endplate osteophytes within the lower lumbar spine. There are/sacrum is intact. No fractures identified. IMPRESSION: 1. No fractures within the lumbar spine. 2. Mild degenerative disc disease and grade 1 anterolisthesis of L4 on L5, unchanged. 3. Moderate facet osteoarthritis within the lower lumbar spine. ACT 112: Negative or not required by law. Electronically signed by: Lan Tapia M.D. 11/21/2021 12:50 PM Dictated:11/21/21 1247 Transcribed: 11/21/21 1247
--- NOTE | 2021-11-22 09:38 | XRay Report ---
SINGLE VIEW CHEST CLINICAL HISTORY: Pleuritic chest pain FINDINGS: An AP, portable, upright chest radiograph is compared to study dated 11/20/2021. The heart i s enlarged. The pulmonary vasculature is noncongested. Chronic interstitial thickening is similar to previous. There is bibasilar scarring/atelectasis. No airspace consolidation or large pleural effusio n is identified. No pneumothorax is seen. The skeletal structures are osteopenic. The bony thorax is grossly intact. IMPRESSION: Cardiomegaly with no acute cardiopulmonary abnormality. ACT 112: Negative or not required by law. Electronically signed by: Silviano Carrillo M.D. 11/22/2021 9:37 AM
[2021-11-22] MEDS ORDERED: POTASSIUM CHLORIDE CRTAB 20 MEQ TABCR PO STA (12:56)
[2021-11-22] MEDS ORDERED: Nursing to Pharmacy Communication SCH (13:45)
[2021-11-22] MEDS: BECLOMETHASONE DIP HFA 80 MCG 8.7G INH INH SCH ×2 (14:08→14:09)
[2021-11-22] MEDS ORDERED: LEVOCETIRIZINE DIHYDROCHLORIDE PO SCH (14:15)
[2021-11-22] MEDS: LEVOCETIRIZINE DIHYDROCHLORIDE PO SCH ×2 (15:07→17:51)
[2021-11-22] MEDS ORDERED: METOCLOPRAMIDE HCL INJ 5 MG/ML 2 ML VIAL IV STA (15:37)
[2021-11-22] MEDS ORDERED: diphenhydrAMINE 50 MG/ML VIAL IV STA (15:38)
--- NOTE | 2021-11-22 17:24 | Hospitalist Progress Note ---
Date of Service November 22, 2021 Assessment & Plan (1) Fever: (2) Nausea & vomiting: Plan 66 year old female who presented to ED with fever, chills, N/V since yesterday after her [facility]. Unable to tolerate any po due to constant retching and hasn't taken any pills since yesterday. Fever, chills, rigors, N/V- Had fever with temp of upto 101 at home Temp maxt in the hospital 37.8 C since admission CBC normal, procal normal. Blood cx no growth Currently on IV abx with ceftriaxone Ortho on board MRI Lumbar spine showed similar appearance to the prior lumbar spine MRI. Mild to moderate central canal and left-sided neural foraminal narrowing at L4-5 Moderate to severe facet osteoarthritis within the lower lumbar spine. Lumbar xray showed Mild degenerative disc disease and grade 1 anterolisthesis of L4 on L5, unchanged. Clinically improved. Asthma no exacerbation. continue home inhalers, singulair Pleuritic chest dyscomfort atypical in nature. tenderness with palpation CXR showed Cardiomegaly with no acute cardiopulmonary abnormality. Troponin x 2 negative EKG showed no acute ischemic changes we switched her to her regular inhaler Migraine Continue tylenol, toradol prn. IVF. Will give Benadryl/reglan IV x1 Continue monitor GERD Continue PO PPI Stable Hypokalemia Potassium 3.4 K replaced Continue monitor BMP Atrial tachycardia H/o PAF s/p ablation continue home cardizem hs DVT ppx- sc lovenox Full code Admission and Anticipated Discharge Date Admission Date: November 20, 2021 Subjective Patient was seen and follow-up of nausea, vomiting and fever Lying in bed with no acute distress Patient said that she had headache this morning Pt said that Cetirizine gave her headache that was changed to her Xyzal she said that she felt a pressure in her chest with deep breating and she was not using her inhaler Denies any chest pain, palpitation, dizziness, shortness of breath. Review of Systems Review of Systems: All systems reviewed & are unremarkable except as noted in Subjective Physical Exam Physical Exam: General- No acute distress Head- atraumatic Eyes- PERRL, EOMI, ENT- oropharynx clear Neck- supple, no JVD Lungs- clear to auscultation Heart- regular rhythm; no murmur Abdomen- normal bowel sounds, soft, nontender Extremities- no calf tenderness Neuro- alert, oriented x 3; PERRL, EOMI; no facial palsy; no dysarthria Skin- warm & dry Results & Data Results & Data ([facility]) Vital Signs (Past 12 Hours) Vital Signs Temp Pulse Resp BP Pulse Ox O2 Del Method 11/22/21 15:37 37.2 C 72 18 150/77 H 94 Room Air 11/22/21 08:05 Room Air 11/22/21 08:00 37 C 67 18 130/81 93 Room Air (1) Fever Fever type: unspecified Qualified Code(s): R50.9 - Fever, unspecified
[2021-11-22] MEDS: cefTRIAXone SODIUM 2,000 MG/70 ML BAG IV SCH (20:25)
[2021-11-22] MEDS: MONTELUKAST SODIUM 10 MG TABLET PO SCH (20:27)
[2021-11-22] MEDS: dilTIAZem ER 120 MG CAPCR PO SCH (20:27)
[2021-11-22] MEDS ORDERED: LORazepam 0.5 MG TAB PO STA (21:40)
[2021-11-22] MEDS ORDERED: OPTIRAY 320 125ml IV ONE (21:56)
[2021-11-22] MEDS ORDERED: SODIUM CHLORIDE 0.45 % 1,000 ML IV SCH (23:30)
[2021-11-23 01:01] LABS: Appearance Urine Clear (Clear); Bacteria Urine Automated Negative (Negative); Bilirubin Urine Negative (Negative); Blood Urine Trace (Negative); Cast Urine Automated 0 /lpf (0-5); Color Urine Yellow; Glucose Urine UA Negative (Negative); Ketones Urine Negative (Negative); Leukocyte Esterase Urine Negative (Negative); Nitrite Urine Negative (Negative); Protein Urine Negative (Negative); RBC Urine Automated 0-4 /hpf (0-4); Specific Gravity Urine 1.032 (1.000-1.030); Urobilinogen Urine Negative (Negative)
[2021-11-23] MEDS: ACETAMINOPHEN 325 MG TAB PO PRN ×3 (05:41→18:11)
[2021-11-23 06:20] LABS: BUN Creatinine Ratio 18.9 (10-20); Calcium 8.7 mg/dl (8.5-10.1); Creatinine Clr Calc Pharmacy 118.1 ml/min; Est GFR (African American) 116.3 ml/min; Est GFR (Non-African American) 100.3 ml/min; Potassium 3.6 mmol/L (3.5-5.1)
[2021-11-23 06:27] LABS: Troponin I High Sensitivity 17.8 pg/ml (0-14)
[2021-11-23] MEDS: ENOXAPARIN INJ 40 MG/0.4 ML SYR SQ SCH (07:54)
[2021-11-23] MEDS: lisinopril 20 MG TAB PO SCH (07:55)
[2021-11-23] MEDS: PANTOprazole 40 MG TAB PO SCH ×2 (07:55→21:27)
[2021-11-23] MEDS: guaiFENesin 600 MG TABCR PO SCH ×2 (07:55→21:27)
[2021-11-23] MEDS: BECLOMETHASONE DIP HFA 40 MCG 8.7G INH INH SCH ×2 (07:56→21:28)
[2021-11-23 07:57] LABS: Lyme Ab IgG w/WB Rflx Negative (Negative); Lyme Ab IgM w/WB Rflx Negative (Negative)
--- NOTE | 2021-11-23 08:00 | CT Scan Report ---
CHEST CTA for PULMONARY ARTERIES CT DOSE: 792.18 mGy.cm HISTORY: Atypical chest pain. Chills. Nausea. Vomiting. Assess for pulmonary embolus. TECHNIQUE: Multiaxial CT images of the chest were performed following the intravenous administration of contrast to evaluate the pulmonary arteries. Maximal intensity projection images were also obtaine d. A dose lowering technique was utilized adhering to the principles of ALARA. COMPARISON STUDY: Chest CT 06/13/2018. FINDINGS: Limited views of the upper abdomen demonstrate normal liver and spleen. Normal caliber esop hagus. The thyroid gland enhances normally. There is a loop recorder within the left anterior chest w all. Subcentimeter mediastinal and bilateral hilar lymph nodes do not meet CT criteria for pathologic involvement. The heart is mildly enlarged. No pleural or pericardial effusions. The ascending thorac ic aorta measures up to 3.7 cm in diameter. No evidence for an aortic dissection. Mild mitral annulus calcifications are present. No filling defects within the pulmonary arteries to suggest a pulmonary embolus. The visualized liver and spleen are unremarkable. No fractures within the visualized osseous structures. Bibasilar linear densities consistent with subsegmental atelectasis. There are are also mild dependent changes within the lungs posteriorly. No pneumothorax. The central airways are patent. Focal density within the left lower lobe medially also favors subsegmental atelectasis. This is lilo lar to the prior study. Punctate calcified granuloma within the base of the right lower lobe. Stable benign 3 mm nodule within the right upper lobe on image 187. IMPRESSION: 1. No evidence for pulmonary embolus. 2. Mild dependent changes seen within the lungs. Otherwise, no focal lung consolidations to suggest p neumonia. 3. Mild cardiomegaly. ACT 112: Negative or not required by law. Electronically signed by: Lan Tapia M.D. 11/23/2021 7:59 AM
[2021-11-23] MEDS ORDERED: BECLOMETHASONE DIP HFA 80 MCG 8.7G INH INH SCH (09:00)
--- NOTE | 2021-11-23 12:31 | Electrocardiogram Report ---
Test Reason : Blood Pressure : / mmHG Vent. Rate : 085 BPM Atrial Rate : 085 BPM P-R Int : 166 ms QRS Dur : 084 ms QT Int : 360 ms P-R-T Axes : 058 041 069 degrees QTc Int : 428 ms Normal sinus rhythm Poor R wave progression, consider anterior MO vs. lead placement vs. LVH Nonspecific T wave abnormality Abnormal ECG When compared with ECG of 15-OCT-2020 16:52, No significant change was found Confirmed by Codey Buneo ([id number]) on 11/23/2021 12:30:42 PM Referred By: REFERRED SELF Confirmed By:Codey Bueno
--- NOTE | 2021-11-23 12:33 | Electrocardiogram Report ---
Test Reason : Blood Pressure : / mmHG Vent. Rate : 073 BPM Atrial Rate : 073 BPM P-R Int : 178 ms QRS Dur : 090 ms QT Int : 350 ms P-R-T Axes : 038 022 065 degrees QTc Int : 385 ms Normal sinus rhythm Nonspecific T wave abnormality Abnormal ECG When compared with ECG of 20-NOV-2021 15:16, (unconfirmed) Nonspecific T wave abnormality now evident in Inferior leads Confirmed by Codey Bueno ([id number]) on 11/23/2021 12:33:38 PM Referred By: REFERRED SELF Confirmed By:Codey Bueno
[2021-11-23] MEDS: LEVOCETIRIZINE DIHYDROCHLORIDE PO SCH (12:42)
--- NOTE | 2021-11-23 12:48 | Electrocardiogram Report ---
Test Reason : Blood Pressure : / mmHG Vent. Rate : 088 BPM Atrial Rate : 088 BPM P-R Int : 158 ms QRS Dur : 086 ms QT Int : 356 ms P-R-T Axes : 060 041 072 degrees QTc Int : 430 ms Normal sinus rhythm Nonspecific T wave abnormality Abnormal ECG When compared with ECG of 22-NOV-2021 13:55, (unconfirmed) Nonspecific T wave abnormality no longer evident in Inferior leads Nonspecific T wave abnormality no longer evident in Anterior leads Confirmed by Codey Bueno ([id number]) on 11/23/2021 12:48:49 PM Referred By: REFERRED SELF Confirmed By:Codey Bueno
--- NOTE | 2021-11-23 12:59 | Orthopedic Progress Note ---
Date of Service November 23, 2021 Assessment & Plan (1) Spinal stenosis, lumbar region with neurogenic claudication: Plan: At this time her MRI is certainly suggestive of lumbar instability L4-5 with marked facet appear to be L4-5 L5-S1 on the MRI. There is no evidence of any infection within the spine. I suspect her current illness is not related to any spinal disease however she does have stenosis and subsequent back and leg pain and ultimately be a surgical candidate and the future when she is healthy. Admission and Anticipated Discharge Date Admission Date: November 20, 2021 Subjective Patient continues to have intermittent back and left leg pain. Physical Exam Physical Exam: On exam the patient is in bed. She appears comfortable this time. She is neurologically intact. Results & Data ([facility]) Vital Signs (Past 12 Hours) Vital Signs Temp Pulse Pulse Resp BP Pulse Ox O2 Flow Rate 11/23/21 07:27 74 18 96 2 11/23/21 07:31 37.4 C 73 18 123/75 98 11/23/21 05:38 38.5 C H 80 145/80 H 11/23/21 02:45 80 21 96 2
--- NOTE | 2021-11-23 16:14 | Hospitalist Progress Note ---
Date of Service November 23, 2021 Assessment & Plan (1) Fever: (2) Nausea & vomiting: Plan 66 year old female who presented to ED with fever, chills, N/V since yesterday after her [facility]. Unable to tolerate any po due to constant retching and hasn't taken any pills since yesterday. Fever, chills, rigors, N/V Pt said that her symptoms started after the injection Had fever with temp of upto 101 at home Temp maxt in the hospital 37.8 C since admission CBC normal, procal normal. Blood cx no growth and repeat procalcitonin negative Plasma smear showed no inclusion body to suggest anaplasmosis Lyme titer negative and repeat covid 19 negative On IV abx with ceftriaxone repeat blood cx pending Might consider to add doxycycline Ortho on board MRI Lumbar spine showed similar appearance to the prior lumbar spine MRI. Mild to moderate central canal and left-sided neural foraminal narrowing at L4-5 Moderate to severe facet osteoarthritis within the lower lumbar spine. Lumbar xray showed Mild degenerative disc disease and grade 1 anterolisthesis of L4 on L5, unchanged. No surgical intervention currently as per ortho. But in the future when she is medically stable, she will need surgery as per ortho consider ID consult if no improvement Asthma no exacerbation. continue home inhalers, singulair Dyspnea Pleuritic chest discomfort atypical in nature. tenderness with palpation CTA chest showed no evidence of PE CXR showed Cardiomegaly with no acute cardiopulmonary abnormality. Troponin has been trending 8.1->7.9->15.6->17.8->13.1 EKG showed no acute ischemic changes will get a resting echo Migraine Pt has history of chronic headache Continue tylenol, toradol prn. IVF. Continue monitor GERD Continue PO PPI Stable Hypokalemia Potassium 3.6 today Continue monitor BMP Atrial tachycardia H/o PAF s/p ablation continue home cardizem hs DVT ppx- sc lovenox Full code Admission and Anticipated Discharge Date Admission Date: November 20, 2021 Subjective Patient was seen and follow-up of nausea, vomiting, headache, fever, sob, chest discomfort Sitting in bed with no acute distress eating distress . Pt said that she feels miserable She said that last night she had a fever and headache. She said that she had a difficulty time to breath She said that her symptoms started after the back injection that day She is concerned about covid 19 She said that she is not having any chest pain currently, but when i push on her chest she said that she feels some discomfort Denies any blurry vision, palpitation, dizziness Review of Systems Review of Systems: All systems reviewed & are unremarkable except as noted in Subjective Physical Exam Physical Exam: General- No acute distress Head- atraumatic Eyes- PERRL, EOMI, ENT- oropharynx clear Neck- supple, no JVD Lungs- clear to auscultation Heart- regular rhythm; no murmur Abdomen- normal bowel sounds, soft, nontender Extremities- no calf tenderness Neuro- alert, oriented x 3; PERRL, EOMI; no facial palsy; no dysarthria Skin- warm & dry Results & Data Results & Data ([facility]) Vital Signs (Past 12 Hours) Vital Signs Temp Pulse Pulse Resp BP BP Pulse Ox 11/23/21 14:16 37 C 75 18 153/70 H 96 11/23/21 07:27 74 18 96 11/23/21 07:31 37.4 C 73 18 123/75 98 11/23/21 05:38 38.5 C H 80 145/80 H O2 Del Method O2 Flow Rate 11/23/21 14:16 Room Air 11/23/21 07:27 2 11/23/21 07:31 11/23/21 05:38 (1) Fever Fever type: unspecified Qualified Code(s): R50.9 - Fever, unspecified
[2021-11-23] MEDS ORDERED: hydroCHLOROthiazide 25 MG TAB PO STA (19:06)
[2021-11-23] MEDS: DOXYCYCLINE HYCLATE 100 MG CAP PO SCH (19:59)
[2021-11-23] MEDS: MONTELUKAST SODIUM 10 MG TABLET PO SCH (21:27)
[2021-11-23] MEDS: dilTIAZem ER 120 MG CAPCR PO SCH (21:30)
[2021-11-24] MEDS: cefTRIAXone SODIUM 2,000 MG in DEXTROSE 5% 50 ML IV SCH (00:30)
[2021-11-24 07:27] LABS: Hematocrit (blood only) 32.4 % (34.1-44.9); Hemoglobin 10.4 g/dl (12.0-16.0); Mean Corpuscular Hemoglobin 26.7 pg (25.0-34.0); Mean Corpuscular Hgb Conc 32.1 g/dL (32.0-36.0); Mean Corpuscular Volume 83.3 fL (80.0-100.0); Mean Platelet Volume 10.6 fL (9.4-12.3); Platelet Count 273 K/uL (130-400); RDW Standard Deviation 39.3 fL (36.4-46.3); Red Blood Count 3.89 M/uL (3.93-5.22); White Blood Count 10.13 K/ul (4.8-10.8)
[2021-11-24 07:47] LABS: Albumin Globulin Ratio 1.2 (0.9-2); Albumin Level 3.9 gm/dl (3.4-5.0); BUN Creatinine Ratio 17.2 (10-20); Bilirubin,Total 0.4 mg/dl (0.2-1.0); Calcium 8.9 mg/dl (8.5-10.1); Creatinine Clr Calc Pharmacy 107.9 ml/min; Est GFR (African American) 112.9 ml/min; Est GFR (Non-African American) 97.4 ml/min; Globulin 3.3 gm/dl (2.5-4.0); Potassium 3.4 mmol/L (3.5-5.1); Total Protein 7.2 gm/dl (6.0-8.3)
[2021-11-24] MEDS: DOXYCYCLINE HYCLATE 100 MG CAP PO SCH ×2 (08:15→21:48)
[2021-11-24] MEDS: BECLOMETHASONE DIP HFA 40 MCG 8.7G INH INH SCH ×2 (08:15→21:51)
[2021-11-24] MEDS: guaiFENesin 600 MG TABCR PO SCH ×2 (08:16→21:48)
[2021-11-24] MEDS: PANTOprazole 40 MG TAB PO SCH ×2 (08:16→21:48)
[2021-11-24] MEDS: ENOXAPARIN INJ 40 MG/0.4 ML SYR SQ SCH (08:16)
[2021-11-24] MEDS: lisinopril 20 MG TAB PO SCH (08:16)
[2021-11-24] MEDS: hydroCHLOROthiazide 25 MG TAB PO SCH (08:16)
--- NOTE | 2021-11-24 10:57 | Hospitalist Progress Note ---
Date of Service November 24, 2021 Assessment & Plan (1) Fever: (2) Nausea & vomiting: Plan Per previous hospitalist (frederic addendum for 11/24): 66 year old female who presented to ED with fever, chills, N/V since yesterday after her back injection on Tuesday at [facility] office. Unable to tolerate any po due to constant retching. Fever, chills, rigors, N/V Pt said that her symptoms started after the injection Had fever with temp of upto 101 at home Temp max in the hospital 39.4C (11/22) since admission CBC normal, procal normal. Blood cx no growth and repeat procalcitonin negative Plasma smear showed no inclusion body to suggest anaplasmosis or babesia Lyme titer negative and repeat covid 19 negative babesia pcr pending anaplasma pcr pending On IV abx with ceftriaxone repeat blood cx pending added doxycycline Orthopedics consulted MRI Lumbar spine showed similar appearance to the prior lumbar spine MRI. Mild to moderate central canal and left-sided neural foraminal narrowing at L4-5 Moderate to severe facet osteoarthritis within the lower lumbar spine. Lumbar xray showed Mild degenerative disc disease and grade 1 anterolisthesis of L4 on L5, unchanged. No surgical intervention currently as per ortho. But in the future when she is medically stable, she will need surgery as per ortho 11/24 -patient spiked fever again last evening. Source of infection remains unclear. Nausea vomiting has resolved. Patient continues to have poor appetite and is not feeling well. Continue with IV Rocephin and doxycycline for now, ID consultation order placed Asthma no exacerbation. continue home inhalers, singulair Dyspnea Pleuritic chest discomfort atypical in nature. tenderness with palpation CTA chest showed no evidence of PE CXR showed Cardiomegaly with no acute cardiopulmonary abnormality. Troponin has been trending 8.1->7.9->15.6->17.8->13.1 EKG showed no acute ischemic changes Resting Echo obtained - LV is normal in size. There is mild concentric LVH. LV wall motion is normal. EF 55 to 60%. Aortic valve sclerosis mild, without significant aortic valvular stenosis. Trace aortic regurg. There is mild to moderate mitral regurg. There is a trace tricuspid regurg. Doppler findings do not suggest pulmonary hypertension. Migraine Pt has history of chronic headache Continue tylenol, toradol prn. IVF. Continue monitor GERD Continue PO PPI Stable Hypokalemia replete and monitor Continue monitor BMP Atrial tachycardia H/o PAF s/p ablation continue home cardizem hs DVT ppx- sc lovenox Full code Admission and Anticipated Discharge Date Admission Date: November 20, 2021 Subjective Patient was seen and follow-up of nausea, vomiting, headache, fever, sob, chest discomfort Laying in bed with no acute distress Pt says she doesn't feel well but at least her nausea vomiting resolved Continues to have poor appetite Fever again yesterday evening She said that her symptoms started after the back injection that day Previously reported some chest pain, seems resolved now Denies any shortness of breath, blurry vision, palpitation, dizziness Review of Systems Review of Systems: All systems reviewed & are unremarkable except as noted in Subjective Physical Exam Physical Exam: General- obese F in no acute distress Head- atraumatic Eyes- PERRL, EOMI, ENT- oropharynx clear Neck- supple, no JVD Lungs- clear to auscultation Heart- regular rhythm; no murmur Abdomen- normal bowel sounds, soft, nontender Extremities- no calf tenderness Neuro- alert, oriented x 3; PERRL, EOMI; no facial palsy; no dysarthria Skin- warm & dry Results & Data Results & Data ([facility]) Vital Signs (Past 12 Hours) Vital Signs Temp Pulse Pulse Resp BP Pulse Ox O2 Del Method 11/24/21 07:40 37.3 C 76 18 144/80 H 93 Room Air 11/24/21 02:30 75 24 97 O2 Flow Rate 11/24/21 07:40 11/24/21 02:30 2 Laboratory Results 11/24/21 11/24/21 11/23/21 Range/Units 06:14 06:14 13:55 WBC 10.13 (4.8-10.8) K/ul RBC 3.89 L (3.93-5.22) M/uL Hgb 10.4 L (12.0-16.0) g/dl Hct 32.4 L (34.1-44.9) % MCV 83.3 (80.0-100.0) fL MCH 26.7 (25.0-34.0) pg MCHC 32.1 (32.0-36.0) g/dL RDW Std Deviation 39.3 (36.4-46.3) fL RDW Coeff of Emma 13.0 (11.5-14.5) % Plt Count 273 (130-400) K/uL MPV 10.6 (9.4-12.3) fL Sodium 137 (136-145) mmol/L Potassium 3.4 L (3.5-5.1) mmol/L Chloride 99 (98-107) mmol/L Carbon Dioxide 29 (21-32) mmol/L Anion Gap 9 (3-11) BUN 10 (6-23) mg/dl Creatinine 0.58 L (0.6-1.2) mg/dl Est Cr Clr Drug Dosing 107.9 ml/min Est GFR ( Amer) 112.9 ml/min Est GFR (Non-Af Amer) 97.4 ml/min BUN/Creatinine Ratio 17.2 (10-20) Glucose 113 H (70-99(Fasting)) mg/dl Calcium 8.9 (8.5-10.1) mg/dl Total Bilirubin 0.4 (0.2-1.0) mg/dl AST 13 (13-39) U/L ALT 16 (7-52) U/L Alkaline Phosphatase 51 (34-104) U/L Troponin I High Sens (0-14) pg/ml Total Protein 7.2 (6.0-8.3) gm/dl Albumin 3.9 (3.4-5.0) gm/dl Globulin 3.3 (2.5-4.0) gm/dl Albumin/Globulin Ratio 1.2 (0.9-2) Procalcitonin (0-0.5) ng/ml SARS-CoV-2 (PCR) NEGATIVE (Negative) 11/23/21 11/23/21 Range/Units 11:08 11:08 WBC (4.8-10.8) K/ul RBC (3.93-5.22) M/uL Hgb (12.0-16.0) g/dl Hct (34.1-44.9) % MCV (80.0-100.0) fL MCH (25.0-34.0) pg MCHC (32.0-36.0) g/dL RDW Std Deviation (36.4-46.3) fL RDW Coeff of Emma (11.5-14.5) % Plt Count (130-400) K/uL MPV (9.4-12.3) fL Sodium (136-145) mmol/L Potassium (3.5-5.1) mmol/L Chloride (98-107) mmol/L Carbon Dioxide (21-32) mmol/L Anion Gap (3-11) BUN (6-23) mg/dl Creatinine (0.6-1.2) mg/dl Est Cr Clr Drug Dosing ml/min Est GFR ( Amer) ml/min Est GFR (Non-Af Amer) ml/min BUN/Creatinine Ratio (10-20) Glucose (70-99(Fasting)) mg/dl Calcium (8.5-10.1) mg/dl Total Bilirubin (0.2-1.0) mg/dl AST (13-39) U/L ALT (7-52) U/L Alkaline Phosphatase (34-104) U/L Troponin I High Sens 13.1 D (0-14) pg/ml Total Protein (6.0-8.3) gm/dl Albumin (3.4-5.0) gm/dl Globulin (2.5-4.0) gm/dl Albumin/Globulin Ratio (0.9-2) Procalcitonin 0.10 (0-0.5) ng/ml SARS-CoV-2 (PCR) (Negative) Medications Administered Current Inpatient Medications Acetaminophen (Acetaminophen 325 Mg Tab) 650 mg PO Q4H PRN PRN Reason: Pain or Fever Stop: 12/21/21 00:35 Last Admin: 11/23/21 18:11 Dose: 650 mg Albuterol (Albuterol Hfa 8 Gm Inhaler) 2 puffs INH Q6H PRN PRN Reason: Shortness Of Breath Or Wheezin Stop: 12/20/21 23:56 Beclomethasone Dipropionate (Beclomethasone Dip Hfa 40 Mcg 8.7g Inh) 2 puffs INH BID [facility] Stop: 12/23/21 08:59 Last Admin: 11/24/21 08:15 Dose: 2 puffs Diltiazem HCl (Diltiazem Er 120 Mg Capcr) 120 mg PO HS [facility] Stop: 12/20/21 23:56 Last Admin: 11/23/21 21:30 Dose: 120 mg Doxycycline Hyclate (Doxycycline Hyclate 100 Mg Cap) 100 mg PO BID [facility] Stop: 12/07/21 19:14 Last Admin: 11/24/21 08:15 Dose: 100 mg Enoxaparin Sodium (Enoxaparin Inj 40 Mg/0.4 Ml Syr) 40 mg SQ QAM [facility] Stop: 12/21/21 08:59 Last Admin: 11/24/21 08:16 Dose: 40 mg Fluticasone Propionate (Fluticasone Propionate Na Spr 16 Gm Btl) 2 sprays NA BID PRN PRN Reason: Congestion Stop: 12/20/21 23:56 Guaifenesin (Guaifenesin 600 Mg Tabcr) 600 mg PO Q12 [facility] Stop: 12/21/21 20:59 Last Admin: 11/24/21 08:16 Dose: 600 mg Hydrochlorothiazide (Hydrochlorothiazide 25 Mg Tab) 12.5 mg PO DAILY [facility] Stop: 12/24/21 08:59 Last Admin: 11/24/21 08:16 Dose: 12.5 mg Ceftriaxone Sodium 2,000 mg/ (Dextrose) 70 mls @ 100 mls/hr IV Q24H [facility]; Protocol Stop: 11/28/21 00:14 Last Infusion: 11/24/21 01:20 Dose: Infused Levocetirizine (Levocetirizine Dihydrochloride) 1 each PO QDL [facility] Stop: 12/22/21 14:14 Last Admin: 11/23/21 12:42 Dose: 1 each Lisinopril (Lisinopril 20 Mg Tab) 20 mg PO DAILY [facility] Stop: 12/21/21 08:59 Last Admin: 11/24/21 08:16 Dose: 20 mg Montelukast Sodium (Montelukast Sodium 10 Mg Tablet) 10 mg PO HS [facility] Stop: 12/20/21 23:56 Last Admin: 11/23/21 21:27 Dose: 10 mg Ondansetron HCl (Ondansetron Inj 2 Mg/Ml 2 Ml Vial) 4 mg IV Q6H PRN PRN Reason: Nausea And Vomiting Stop: 12/20/21 23:56 Last Admin: 11/21/21 09:58 Dose: 4 mg Pantoprazole Sodium (Pantoprazole 40 Mg Tab) 40 mg PO BID [facility] Stop: 12/20/21 23:56 Last Admin: 11/24/21 08:16 Dose: 40 mg Potassium Chloride (Potassium Chloride Pwd 20 Meq Pack) 20 meq PO BID [facility] Stop: 12/24/21 11:14 Triamcinolone Acetonide (Triamcinolone Acet 0.1% Cr 15 Gm Tube) 1 appln TOP BID PRN PRN Reason: Skin Irritation Stop: 12/20/21 23:56 (1) Fever Fever type: unspecified Qualified Code(s): R50.9 - Fever, unspecified
[2021-11-24] MEDS: ACETAMINOPHEN 325 MG TAB PO PRN ×2 (11:36→21:56)
[2021-11-24] MEDS: LEVOCETIRIZINE DIHYDROCHLORIDE PO SCH (11:37)
[2021-11-24] MEDS: POTASSIUM CHLORIDE PWD 20 MEQ PACK PO SCH ×2 (13:01→21:49)
[2021-11-24] MEDS: MONTELUKAST SODIUM 10 MG TABLET PO SCH (21:48)
[2021-11-24] MEDS: dilTIAZem ER 120 MG CAPCR PO SCH (21:51)
[2021-11-24 22:04] LABS: Babesia microti DNA Not Detected (Not Detected)
[2021-11-25] MEDS: cefTRIAXone SODIUM 2,000 MG in DEXTROSE 5% 50 ML IV SCH (01:07)
[2021-11-25 05:55] LABS: Basophils # (auto) 0.06 K/uL (0-0.2); Basophils % (auto) 0.8 %; Eosinophils # (auto) 0.18 K/uL (0-0.50); Eosinophils % (auto) 2.3 %; Hematocrit (blood only) 33.9 % (34.1-44.9); Hemoglobin 10.9 g/dl (12.0-16.0); Immature Granulocytes # (auto) 0.08 K/uL (0.00-0.02); Lymphocytes # (auto) 2.01 K/uL (1.2-3.4); Lymphocytes % (auto) 25.2 %; Mean Corpuscular Hemoglobin 27.1 pg (25.0-34.0); Mean Corpuscular Hgb Conc 32.2 g/dL (32.0-36.0); Mean Corpuscular Volume 84.3 fL (80.0-100.0); Mean Platelet Volume 10.1 fL (9.4-12.3); Monocytes # (auto) 0.72 K/uL (0.24-0.82); Neutrophils # (auto) 4.94 K/uL (1.4-6.5); Neutrophils % (auto) 61.7 %; Platelet Count 284 K/uL (130-400); RDW Coefficient of Variation 13.1 % (11.5-14.5); RDW Standard Deviation 39.9 fL (36.4-46.3); Red Blood Count 4.02 M/uL (3.93-5.22); White Blood Count 7.99 K/ul (4.8-10.8)
[2021-11-25 06:18] LABS: BUN Creatinine Ratio 20.6 (10-20); Calcium 9.5 mg/dl (8.5-10.1); Creatinine Clr Calc Pharmacy 99.3 ml/min; Est GFR (African American) 109.9 ml/min; Est GFR (Non-African American) 94.8 ml/min; Magnesium 1.6 mg/dl (1.7-2.4); Phosphorus 4.8 mg/dl (2.5-4.9); Potassium 3.6 mmol/L (3.5-5.1)
--- NOTE | 2021-11-25 09:04 | Hospitalist Progress Note ---
Date of Service November 25, 2021 Assessment & Plan (1) Fever: (2) Nausea & vomiting: Plan 66 year old female who presented to ED with fever, chills, N/V since yesterday after her back injection on Tuesday at [facility]. Unable to tolerate any po due to constant retching. Fever, chills, rigors, N/V Pt said that her symptoms started after the injection Had fever with temp of upto 101 at home Temp max in the hospital 39.4C (11/22) since admission Last fever 11/23 PM CBC normal, procal normal. Blood cx no growth so far and repeat procalcitonin negative Plasma smear showed no inclusion body to suggest anaplasmosis or babesia Lyme titer negative and repeat covid 19 negative babesia pcr negative anaplasma pcr pending On IV abx with ceftriaxone repeat blood cx pending added doxycycline Orthopedics consulted MRI Lumbar spine showed similar appearance to the prior lumbar spine MRI. Mild to moderate central canal and left-sided neural foraminal narrowing at L4-5 Moderate to severe facet osteoarthritis within the lower lumbar spine. Lumbar xray showed Mild degenerative disc disease and grade 1 anterolisthesis of L4 on L5, unchanged. No surgical intervention currently as per ortho. But in the future when she is medically stable, she will need surgery as per ortho 11/24 -patient spiked fever again last evening. Source of infection remains unclear. Nausea vomiting has resolved. Patient continues to have poor appetite and is not feeling well. Continue with IV Rocephin and doxycycline for now, ID consultation order placed 11/25 -patient is feeling better, as far as her nausea /vomiting which has resolved. Fever was last time noted on November 23. She has increased back pain from laying in bed in the hospital. And therefore she is not willing to stay any longer. ID consult was placed, however not done yet. Able to contact ID physician ( Dr. Pedroza) and discussed over the phone. Recommend to discharge on p.o. doxycycline for 14 days, follow-up with PCP in about 7 days. Asthma no exacerbation. continue home inhalers, singulair Dyspnea Pleuritic chest discomfort atypical in nature. tenderness with palpation CTA chest showed no evidence of PE CXR showed Cardiomegaly with no acute cardiopulmonary abnormality. Troponin has been trending 8.1->7.9->15.6->17.8->13.1 EKG showed no acute ischemic changes Resting Echo obtained - LV is normal in size. There is mild concentric LVH. LV wall motion is normal. EF 55 to 60%. Aortic valve sclerosis mild, without significant aortic valvular stenosis. Trace aortic regurg. There is mild to moderate mitral regurg. There is a trace tricuspid regurg. Doppler findings do not suggest pulmonary hypertension. Migraine Pt has history of chronic headache Continue tylenol, toradol prn. IVF. Continue monitor GERD Continue PO PPI Stable Hypokalemia replete and monitor Continue monitor BMP Atrial tachycardia H/o PAF s/p ablation continue home cardizem hs DVT ppx- sc lovenox Full code Admission and Anticipated Discharge Date Admission Date: November 20, 2021 Subjective Patient was seen and follow-up of nausea, vomiting, headache, fever, sob, chest discomfort Per pt, symptoms started after the back injection Sitting up in bed in no acute distress Last fever 7/18 PM Previously reported some chest pain, seems resolved now Denies any shortness of breath, blurry vision, palpitation, dizziness Denies any abdominal pain, nausea or vomiting Appetite seems to be better Reports worsening back pain when laying in the bed in the hospital, and therefore would like to be discharged. Discussed ID consultation, and patient says that she really cannot stay another night in this bed. ID consult was placed, however not done yet. Able to discuss with ID physician over the phone though, and make a plan for discharge. Review of Systems Review of Systems: All systems reviewed & are unremarkable except as noted in Subjective Physical Exam Physical Exam: General- obese F in no acute distress Head- atraumatic Eyes- PERRL, EOMI, ENT- oropharynx clear Neck- supple, no JVD Lungs- clear to auscultation Heart- regular rhythm; no murmur Abdomen- normal bowel sounds, soft, nontender Extremities- no calf tenderness Neuro- alert, oriented x 3; PERRL, EOMI; no facial palsy; no dysarthria Skin- warm & dry Results & Data Results & Data ([facility]) Vital Signs (Past 12 Hours) Vital Signs Temp Pulse Pulse Resp BP BP Pulse Ox 11/25/21 07:40 36.7 C 68 18 131/73 93 11/25/21 03:25 75 19 95 11/24/21 22:59 73 23 96 11/24/21 21:51 81 143/81 H 11/24/21 21:36 37.3 C 74 16 132/77 96 O2 Del Method O2 Flow Rate 11/25/21 07:40 Room Air 11/25/21 03:25 2 11/24/21 22:59 2 11/24/21 21:51 11/24/21 21:36 Laboratory Results 11/25/21 11/25/21 11/24/21 Range/Units 05:27 05:27 06:14 WBC 7.99 (4.8-10.8) K/ul RBC 4.02 (3.93-5.22) M/uL Hgb 10.9 L (12.0-16.0) g/dl Hct 33.9 L (34.1-44.9) % MCV 84.3 (80.0-100.0) fL MCH 27.1 (25.0-34.0) pg MCHC 32.2 (32.0-36.0) g/dL RDW Std Deviation 39.9 (36.4-46.3) fL RDW Coeff of Emma 13.1 (11.5-14.5) % Plt Count 284 (130-400) K/uL MPV 10.1 (9.4-12.3) fL Immature Gran % (Auto) 1.0 % Neut % (Auto) 61.7 % Lymph % (Auto) 25.2 % [place] % (Auto) 9.0 % Eos % (Auto) 2.3 % Baso % (Auto) 0.8 % Neut # (Auto) 4.94 (1.4-6.5) K/uL Lymph # (Auto) 2.01 (1.2-3.4) K/uL [place] # (Auto) 0.72 (0.24-0.82) K/uL Eos # (Auto) 0.18 (0-0.50) K/uL Baso # (Auto) 0.06 (0-0.2) K/uL Immature Gran # (Auto) 0.08 H (0.00-0.02) K/uL Sodium 138 (136-145) mmol/L Potassium 3.6 (3.5-5.1) mmol/L Chloride 101 (98-107) mmol/L Carbon Dioxide 28 (21-32) mmol/L Anion Gap 9 (3-11) BUN 13 (6-23) mg/dl Creatinine 0.63 (0.6-1.2) mg/dl Est Cr Clr Drug Dosing 99.3 ml/min Est GFR ( Amer) 109.9 ml/min Est GFR (Non-Af Amer) 94.8 ml/min BUN/Creatinine Ratio 20.6 H (10-20) Glucose 107 H (70-99(Fasting)) mg/dl Calcium 9.5 (8.5-10.1) mg/dl Phosphorus 4.8 (2.5-4.9) mg/dl Magnesium 1.6 L (1.7-2.4) mg/dl A. phagocytophilum DNA Pending Babesia microti DNA PCR (Not Detected) 11/20/21 Range/Units 16:48 WBC (4.8-10.8) K/ul RBC (3.93-5.22) M/uL Hgb (12.0-16.0) g/dl Hct (34.1-44.9) % MCV (80.0-100.0) fL MCH (25.0-34.0) pg MCHC (32.0-36.0) g/dL RDW Std Deviation (36.4-46.3) fL RDW Coeff of Emma (11.5-14.5) % Plt Count (130-400) K/uL MPV (9.4-12.3) fL Immature Gran % (Auto) % Neut % (Auto) % Lymph % (Auto) % [place] % (Auto) % Eos % (Auto) % Baso % (Auto) % Neut # (Auto) (1.4-6.5) K/uL Lymph # (Auto) (1.2-3.4) K/uL [place] # (Auto) (0.24-0.82) K/uL Eos # (Auto) (0-0.50) K/uL Baso # (Auto) (0-0.2) K/uL Immature Gran # (Auto) (0.00-0.02) K/uL Sodium (136-145) mmol/L Potassium (3.5-5.1) mmol/L Chloride (98-107) mmol/L Carbon Dioxide (21-32) mmol/L Anion Gap (3-11) BUN (6-23) mg/dl Creatinine (0.6-1.2) mg/dl Est Cr Clr Drug Dosing ml/min Est GFR ( Amer) ml/min Est GFR (Non-Af Amer) ml/min BUN/Creatinine Ratio (10-20) Glucose (70-99(Fasting)) mg/dl Calcium (8.5-10.1) mg/dl Phosphorus (2.5-4.9) mg/dl Magnesium (1.7-2.4) mg/dl A. phagocytophilum DNA Babesia microti DNA PCR Not Detected (Not Detected) Medications Administered Current Inpatient Medications Acetaminophen (Acetaminophen 325 Mg Tab) 650 mg PO Q4H PRN PRN Reason: Pain or Fever Stop: 12/21/21 00:35 Last Admin: 11/24/21 21:56 Dose: 650 mg Albuterol (Albuterol Hfa 8 Gm Inhaler) 2 puffs INH Q6H PRN PRN Reason: Shortness Of Breath Or Wheezin Stop: 12/20/21 23:56 Beclomethasone Dipropionate (Beclomethasone Dip Hfa 40 Mcg 8.7g Inh) 2 puffs INH BID [facility] Stop: 12/23/21 08:59 Last Admin: 11/24/21 21:51 Dose: 2 puffs Diltiazem HCl (Diltiazem Er 120 Mg Capcr) 120 mg PO HS [facility] Stop: 12/20/21 23:56 Last Admin: 11/24/21 21:51 Dose: 120 mg Doxycycline Hyclate (Doxycycline Hyclate 100 Mg Cap) 100 mg PO BID [facility] Stop: 12/07/21 19:14 Last Admin: 11/24/21 21:48 Dose: 100 mg Enoxaparin Sodium (Enoxaparin Inj 40 Mg/0.4 Ml Syr) 40 mg SQ QAM [facility] Stop: 12/21/21 08:59 Last Admin: 11/24/21 08:16 Dose: 40 mg Fluticasone Propionate (Fluticasone Propionate Na Spr 16 Gm Btl) 2 sprays NA BID PRN PRN Reason: Congestion Stop: 12/20/21 23:56 Guaifenesin (Guaifenesin 600 Mg Tabcr) 600 mg PO Q12 [facility] Stop: 12/21/21 20:59 Last Admin: 11/24/21 21:48 Dose: 600 mg Hydrochlorothiazide (Hydrochlorothiazide 25 Mg Tab) 12.5 mg PO DAILY [facility] Stop: 12/24/21 08:59 Last Admin: 11/24/21 08:16 Dose: 12.5 mg Ceftriaxone Sodium 2,000 mg/ (Dextrose) 70 mls @ 100 mls/hr IV Q24H [facility]; Protocol Stop: 11/28/21 00:14 Last Infusion: 11/25/21 01:52 Dose: Infused Levocetirizine (Levocetirizine Dihydrochloride) 1 each PO QDL [facility] Stop: 12/22/21 14:14 Last Admin: 11/24/21 11:37 Dose: 1 each Lisinopril (Lisinopril 20 Mg Tab) 20 mg PO DAILY [facility] Stop: 12/21/21 08:59 Last Admin: 11/24/21 08:16 Dose: 20 mg Montelukast Sodium (Montelukast Sodium 10 Mg Tablet) 10 mg PO HS [facility] Stop: 12/20/21 23:56 Last Admin: 11/24/21 21:48 Dose: 10 mg Ondansetron HCl (Ondansetron Inj 2 Mg/Ml 2 Ml Vial) 4 mg IV Q6H PRN PRN Reason: Nausea And Vomiting Stop: 12/20/21 23:56 Last Admin: 11/21/21 09:58 Dose: 4 mg Pantoprazole Sodium (Pantoprazole 40 Mg Tab) 40 mg PO BID [facility] Stop: 12/20/21 23:56 Last Admin: 11/24/21 21:48 Dose: 40 mg Potassium Chloride (Potassium Chloride Pwd 20 Meq Pack) 20 meq PO BID [facility] Stop: 12/24/21 11:14 Last Admin: 11/24/21 21:49 Dose: 20 meq Triamcinolone Acetonide (Triamcinolone Acet 0.1% Cr 15 Gm Tube) 1 appln TOP BID PRN PRN Reason: Skin Irritation Stop: 12/20/21 23:56 (1) Fever Fever type: unspecified Qualified Code(s): R50.9 - Fever, unspecified
[2021-11-25] MEDS: guaiFENesin 600 MG TABCR PO SCH (09:09)
[2021-11-25] MEDS: DOXYCYCLINE HYCLATE 100 MG CAP PO SCH (09:09)
[2021-11-25] MEDS: ENOXAPARIN INJ 40 MG/0.4 ML SYR SQ SCH (09:09)
[2021-11-25] MEDS: hydroCHLOROthiazide 25 MG TAB PO SCH (09:09)
[2021-11-25] MEDS: lisinopril 20 MG TAB PO SCH (09:09)
[2021-11-25] MEDS: BECLOMETHASONE DIP HFA 40 MCG 8.7G INH INH SCH (09:09)
[2021-11-25] MEDS: PANTOprazole 40 MG TAB PO SCH (09:09)
[2021-11-25] MEDS: ACETAMINOPHEN 325 MG TAB PO PRN (09:13)
[2021-11-25] MEDS: POTASSIUM CHLORIDE PWD 20 MEQ PACK PO SCH (10:32)
[2021-11-25] MEDS: LEVOCETIRIZINE DIHYDROCHLORIDE PO SCH (12:30)
--- NOTE | 2021-11-25 16:22 | Discharge Summary ---
Date of Service November 25, 2021 Admission HPI Per Admitting Provider 66 year old female with h/o back pain, GERD, h/o PAF s/p ablation, atrial tachycardia, EUSEBIA on CPAP, migraine, asthma who presented to ED with fever, chills, rigors, nausea, vomiting and dry heaving. She was in her usual state of health until Tuesday 2 days back. She had her back injection [place]zon [place] [facility] [place] That night she felt 'yucky' but was still able to hold her pills down. Yesterday, she had fever, rigors and chills with nausea and vomiting and unable to hold any pills down. Fever was 100-101 F. She has not taken any pills since yesterday due to N/V. Now she has constant dry heaving and her chest and abdomen is sore from that. Also feels as if she is not able to catch her breath. No sick contacts. No rash or joint pain. No cough or wheezing. No similar episodes before. States this is her second back injection so far (she doesn't know the name of the medication and states this was different from before). She called Dr Monzon's office to see if this is medication side effect bu t did not get answered. She could not wait anymore at home and hence came to the ED today. She now has a headache too from all of this. Has history of migraine but has not had one in 20 years. She was given morphine and zofran in ED and felt better during my encounter. Admission Exam Per Admitting Provider eneral: Lying comfortably in bed, not in acute distress, on room air HEENT: EOMI, KAREN, MMM Chest: Clear breath sounds bilaterally, no wheezes or crackles CVS: Regular rate and rhythm, normal heart sounds, no murmur Abdomen: Soft, non tender, not distended, normal bowel sounds Neuro: Awake, alert, oriented, conversing well, non focal Extremities: No cyanosis, clubbing or edema Back: Tenderness on palpation of back at midline but no cellulitis or wound noted Principal Diagnosis Fever, nausea vomiting Back pain Fever of unclear etiology Discharge Exam General- obese F in no acute distress Head- atraumatic Eyes- PERRL, EOMI, ENT- oropharynx clear Neck- supple, no JVD Lungs- clear to auscultation Heart- regular rhythm; no murmur Abdomen- normal bowel sounds, soft, nontender Extremities- no calf tenderness Neuro- alert, oriented x 3; PERRL, EOMI; no facial palsy; no dysarthria Skin- warm & dry Discharge Data Allergies Allergy/AdvReac Type Severity Reaction Status Date / Time Sulfa (Sulfonamide Allergy Intermediate METAL Verified 11/20/21 17:26 Antibiotics) TASTE IN MOUTH, TONGUE SWELLS UP latex Allergy Unknown RASH Verified 11/20/21 17:26 cetirizine [From [facility]] AdvReac Headache Verified 11/22/21 15:49 Consultations 11/20/21 18:20 ED Decision to Admit Stat 11/20/21 19:19 Consult Orthopedic Surgery Routine 11/24/21 11:18 Consult Infectious Diseases Routine Ordered Studies 11/20/21 15:57 CT Abd and Pelvis [CT abd pelvis wo con] Stat FINDINGS: Lower chest: Bibasilar atelectasis versus scarring is seen. Liver: Unremarkable. No focal lesions are seen. Gallbladder and biliary tree: No calcified gallstones. Normal caliber wall. No intra- or extrahepatic biliary ductal dilation. Pancreas: Unremarkable, no focal lesions. Spleen: Splenule is incidentally noted. Adrenals: Unremarkable. Kidneys and ureters: There is a 21 mm exophytic cyst in the right kidney. Left hyperdense lesion is seen likely representing proteinaceous/hemorrhagic cyst. Bladder: Unremarkable. Reproductive organs: Unremarkable. Bowel: Diverticulosis is seen without evidence of diverticulitis. The appendix is normal. A small hiatal hernia is seen. No evidence of bowel obstruction is seen. Lymph nodes Retroperitoneal: Unremarkable. Mesenteric: Unremarkable. Pelvic: Unremarkable. Peritoneum: Normal. Vessels: Atherosclerotic calcifications are seen. Abdominal wall: Unremarkable. Bones: Unremarkable. IMPRESSION: 1. No acute abnormalities and in particular no evidence of bowel obstruction. 2. Stable bilateral renal cysts. 11/21/21 10:32 MR lumbar spine wo con Routine FINDINGS: For the purpose of the report the L5-S1 disc space will be located on axial image 31 of 34. No fractures within the lumbar spine. There is mild disc space narrowing at T12- L1 and L4-L5. This remains unchanged. There are few small scattered vertebral body hemangioma is again noted. Stable 1 cm Tarlov cysts at S2. Cholelithiasis again noted. There are few scattered T2 hyperintense lesions within the left kidney. These remain unchanged in therefore favors cysts. Paravertebral soft tissues are unremarkable. Moderate facet degenerative changes at L4-5 and severe facet degenerative changes at L5-S1. This is also unchanged. The conus terminates at the L1-L2 disc space level. There is 3 mm of retrolisthesis of L4 on L5, unchanged. T12-L1: Small broad-based posterior disc bulge without significant central canal or neural foraminal narrowing. L1-L2: There is a small focal central disc protrusion measuring 4 mm and demonstrating mild superior subligamentous migration. This remains unchanged. No significant central canal or neural foraminal narrowing. There is also a tiny broad-based posterior disc bulge at this level. L2-L3: Tiny broad-based posterior disc bulge without significant central canal or neural foraminal narrowing. L3-L4: Small broad-based posterior disc bulge asymmetric to the left without significant central canal or right-sided neural foraminal narrowing. There is mild left-sided neural foraminal narrowing. L4-L5: Broad-based posterior disc bulge with significant ligamentum and facet hypertrophy resulting in [id number] central canal and mild to moderate left-sided neural foraminal narrowing. There is mild right-sided neural foraminal narrowing. L5-S1: Small broad-based posterior disc bulge with ligamentum and facet hypertrophy resulting in mild to moderate bilateral neural foraminal narrowing. No significant central canal narrowing. IMPRESSION: 1. Overall, similar appearance to the prior lumbar spine MRI. 2. Mild to moderate central canal and left-sided neural foraminal narrowing at L4-5 as described above. 3. No fractures identified. 4. Cholelithiasis. 5. Grade 1 anterolisthesis of L4 on L5 again noted. 6. Moderate to severe facet osteoarthritis within the lower lumbar spine. 11/22/21 21:40 CT angio chest PE protocol Urgent FINDINGS: Limited views of the upper abdomen demonstrate normal liver and spleen. Normal caliber esophagus. The thyroid gland enhances normally. There is a loop recorder within the left anterior chest wall. Subcentimeter mediastinal and bilateral hilar lymph nodes do not meet CT criteria for pathologic involvement. The heart is mildly enlarged. No pleural or pericardial effusions. The ascending thoracic aorta measures up to 3.7 cm in diameter. No evidence for an aortic dissection. Mild mitral annulus calcifications are present. No filling defects within the pulmonary arteries to suggest a pulmonary embolus. The visualized liver and spleen are unremarkable. No fractures within the visualized osseous structures. Bibasilar linear densities consistent with subsegmental atelectasis. There are are also mild dependent changes within the lungs posteriorly. No pneumothorax. The central airways are patent. Focal density within the left lower lobe medially also favors subsegmental atelectasis. This is similar to the prior study. Punctate calcified granuloma within the base of the right lower lobe. Stable benign 3 mm nodule within the right upper lobe on image 187. IMPRESSION: 1. No evidence for pulmonary embolus. 2. Mild dependent changes seen within the lungs. Otherwise, no focal lung consolidations to suggest pneumonia. 3. Mild cardiomegaly. Hospital Course (1) Fever: (2) Nausea & vomiting: Plan 66 year old female who presented to ED with fever, chills, N/V since yesterday after her back injection on Tuesday at [facility] office. Unable to tolerate any po due to constant retching. Fever, chills, rigors, N/V Pt said that her symptoms started after the injection Had fever with temp of upto 101 at home Temp max in the hospital 39.4C (11/22) since admission Last fever 11/23 PM CBC normal, procal normal. Blood cx no growth so far and repeat procalcitonin negative Plasma smear showed no inclusion body to suggest anaplasmosis or babesia Lyme titer negative and repeat covid 19 negative babesia pcr negative anaplasma pcr pending On IV abx with ceftriaxone repeat blood cx pending added doxycycline Orthopedics consulted MRI Lumbar spine showed similar appearance to the prior lumbar spine MRI. Mild to moderate central canal and left-sided neural foraminal narrowing at L4-5 Moderate to severe facet osteoarthritis within the lower lumbar spine. Lumbar xray showed Mild degenerative disc disease and grade 1 anterolisthesis of L4 on L5, unchanged. No surgical intervention currently as per ortho. But in the future when she is medically stable, she will need surgery as per ortho 11/24 -patient spiked fever again last evening. Source of infection remains unclear. Nausea vomiting has resolved. Patient continues to have poor appetite and is not feeling well. Continue with IV Rocephin and doxycycline for now, ID consultation order placed 11/25 -patient is feeling better, as far as her nausea /vomiting which has resolved. Fever was last time noted on November 23. She has increased back pain from laying in bed in the hospital. And therefore she is not willing to stay any longer. ID consult was placed, however not done yet. Able to contact ID physician ( Dr. Pedroza) and discussed over the phone. Recommend to discharge on p.o. doxycycline for 14 days, follow-up with PCP in about 7 days. Asthma no exacerbation. continue home inhalers, singulair Dyspnea Pleuritic chest discomfort atypical in nature. tenderness with palpation CTA chest showed no evidence of PE CXR showed Cardiomegaly with no acute cardiopulmonary abnormality. Troponin has been trending 8.1->7.9->15.6->17.8->13.1 EKG showed no acute ischemic changes Resting Echo obtained - LV is normal in size. There is mild concentric LVH. LV wall motion is normal. EF 55 to 60%. Aortic valve sclerosis mild, without significant aortic valvular stenosis. Trace aortic regurg. There is mild to moderate mitral regurg. There is a trace tricuspid regurg. Doppler findings do not suggest pulmonary hypertension. Migraine Pt has history of chronic headache Continue tylenol, toradol prn. IVF. Continue monitor GERD Continue PO PPI Stable Hypokalemia replete and monitor Continue monitor BMP Atrial tachycardia H/o PAF s/p ablation continue home cardizem hs Total Time Total Time Spent Total Time Spent (In Minutes): 40 Discharge Plan Discharge Items Patient Disposition: Home - Self-Care Reason For Visit: FEVER, CHILLS, N/V Discharge Diagnosis: Fever, nausea vomiting Back pain Fever of unclear etiology Activity: Per Instructions section Non-emergency contact: Primary Care Provider Call non-emergency contact if: you have any medication questions and your symptoms worsen Follow-up/Referrals: Rosy Cummins PA-C [Primary Care Provider] - Diet: Heart Healthy Addtl Attending Provider Instructions: Follow-up with your primary care doctor within 1 week. Take doxycycline twice a day, as prescribed, for next 14 days. Do not take your calcium supplement, while on doxycycline. If you develop a fever or any worsening symptoms, contact your healthcare provider or present to emergency room for further evaluation and treatment. Pending Studies at Discharge: Yes Studies:: Final blood culture Anaplasma PCR Stand-Alone Forms: Aptara, Smoking Cessation Medications and DC Order Prescriptions: New doxycycline hyclate 100 mg Capsule 100 mg PO BID 14 Days Qty: 28 0RF Continued multivitamin [Multiple Vitamins] Tablet 1 tab PO DAILY omeprazole 40 mg capsule,delayed release(DR/EC) 40 mg PO QAM lisinopril 10 mg tablet 20 mg PO DAILY nitroglycerin 0.4 mg tablet, sublingual 0.4 mg Sublingual UD PRN (Reason: Chest Pain) albuterol sulfate 90 mcg/actuation Hfa Aerosol Inhaler 2 puff INHALATION Q6H PRN (Reason: Shortness Of Breath Or Wheezing) fluticasone propionate [Flonase Allergy Relief] 50 mcg/actuation [place],Suspension 2 spray INTRANASAL BID PRN (Reason: Congestion) diltiazem HCl 120 mg Capsule,Extended Release 24 Hr 120 mg PO DAILY cholecalciferol (vitamin D3) [Vitamin D3] 50 mcg (2,000 unit) Tablet 150 mcg PO DAILY Rx Instructions: THREE TABLET DOSE hydrochlorothiazide 25 mg tablet 12.5 mg PO DAILY guaifenesin [Mucinex] 600 mg Tablet Extended Release 12hr 600 mg PO DAILY PRN (Reason: Congestion) calcium carb-D3-mag ox-zinc ox 1 tab PO DAILY docusate sodium 100 mg Capsule 100 mg PO BID Qty: 60 0RF Rx Instructions: for consitpation. omega-3 fatty acids 1,000 mg Capsule 1,000 mg PO DAILY triamcinolone acetonide 0.1 % Cream 1 applic TOPICAL BID PRN (Reason: Skin Irritation) montelukast [Singulair] 10 mg Tablet 10 mg PO HS levocetirizine [Xyzal] 5 mg Tablet 5 mg PO HS Qvar RediHaler 80 mcg/actuation HFA aerosol breath activated 2 inh INHALATION BID Discharge Orders: Discharge Order (Routine); Ordered 11/25/21 Ordered By: Aldo Felix Admission Data Admit Date/Time: 11/20/21 19:19 Attending Provider: Aldo Felix Admit Provider: Andrea Alvarado Primary Care Provider: Rosy Cummins Other Providers: Andrea Alvarado ; Dick Greer Wilkerson ; Gatito Hill ; Marguerite Arroyo ; Bill Nunez I. ; Avery Pedroza II ; Lois Landrum ; Jay Best ; Jeffery Kimbrough
[2021-11-26 17:27] LABS: Babesia microti DNA Not Detected (Not Detected)
== END 2021-11-25 18:25 | disposition home or self-care (01) | DRG 864 ==
LOC: ED 15:03 → SUATTDRO 19:19 → 3E 19:19

== ENCOUNTER 2024-06-29 09:25 | Inpatient (IN) ==
--- NOTE | 2024-06-29 09:50 | Emergency Department Note ---
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 evidence for pulmonary edema. ACT 112: Negative or not required by law. Electronically signed by: Magnus Sunshine M.D. 06/29/2024 10:26 AM Abdomen/Pelvis CTA 06/29/24 12:21 CT angio abdomen pelvis w con CLINICAL HISTORY: TAA, ab/chest pain COMPARISON STUDY: CT of the abdomen and pelvis same date TECHNIQUE: Following the IV administration of 120 cc of Optiray, CT angiogram of the abdomen and pelvis was performed from the lung bases the proximal femora. Images are reviewed in the axial, sagittal, and coronal planes. 3-D MIPS images are created and assessed. All measurements were obtained according to NASCET criteria. IV contrast was administered without complication. A dose lowering technique was utilized adhering to the principles of ALARA. CT DOSE: 2653.5 mGy.cm FINDINGS: There is no evidence of abdominal aortic aneurysm or dissection. The major aortic branches are patent. While there are calcified plaques at the origins of the celiac axis, SMA, and renal arteries, there is no significant stenosis appreciated. The SERGO is patent. The iliac arteries are tortuous with no evidence of aneurysm or dissection. Soft tissue abdominal findings were previously described in the abdomen and pelvic CT on the same date IMPRESSION: No evidence of aneurysm, significant stenosis, or occlusive disease involving the abdominal aorta and its branches. ACT 112: Negative or not required by law. The above report was generated using voice recognition software. It may contain grammatical, syntax or spelling errors. Electronically signed by: Britt Streeter M.D. 06/29/2024 1:14 PM Chest CTA 06/29/24 12:21 CT ANGIOGRAPHY OF THE CHEST DISSECTION PROTOCOL CLINICAL HISTORY: Chest pain. Back pain. Evaluate for dissection. COMPARISON STUDY: Chest CT March 26, 2022. TECHNIQUE: Before and following the IV administration of 120 mL of Optiray, helical axial images of the chest were obtained. Maximal intensity projections and sagittal and coronal reformats were viewed on an independent 3D workstation. IV contrast was administered without complication. Automated exposure control was utilized for the study. A dose lowering technique was utilized adhering to the principles of ALARA. FINDINGS: No intramural hematoma or thoracic aortic dissection is present. Caliber of the ascending aorta Kathy limits of normal, measuring 3.8 cm. There is focal aneurysmal dilatation of the mid descending thoracic aorta measuring 3.6 cm. This has slightly increased since CT of June 21, 2023 when it measured 3.4 cm. The heart is moderately enlarged. There is no pericardial effusion. There are no pulmonary emboli. No thoracic lymphadenopathy. No pneumothorax or pleural effusion. No fractures within the bony thorax. Scattered alveolar opacities within the bilateral lower lobes are present. IMPRESSION: 1. No thoracic aortic dissection. 2. Aneurysmal dilatation of the mid descending thoracic aorta measuring 3.6 cm, slightly increased since CT of June 21, 2023. 3. Mild alveolar opacities within the lower lobes suggestive of an infectious process. 4. Cardiomegaly. ACT 112: Negative or not required by law. Electronically signed by: Magnus Sunshine M.D. 06/29/2024 1:21 PM Discharge Plan Visit Data Chief Complaint: Abdominal Pain Stated Complaint: UPPER AB PAIN ED Provider: Brian Lopez Discharge Problem: Non-ST elevation LA (NSTEMI), Abdominal pain, History of CAD (coronary artery disease), Aortic aneurysm, thoracic Patient Disposition: Admitted As Inpatient Discharge Instructions Interventions: ED Discharge Assessment Last Done: 06/30/24 01:14 Discharge Problem: Abdominal pain Qualifiers: Abdominal location: epigastric Qualified Code(s): R10.13 - Epigastric pain Aortic aneurysm, thoracic Qualifiers: Thoracic aorta location: descending thoracic aorta Presence of rupture: without rupture Qualified Code(s): I71.23 - Aneurysm of the descending thoracic aorta, without rupture
[2024-06-29 10:10] LABS: Appearance Urine Clear (Clear); Bilirubin Urine Negative (Negative); Blood Urine Negative (Negative); Color Urine Yellow; Glucose Urine UA Negative (Negative); Ketones Urine Negative (Negative); Leukocyte Esterase Urine Negative (Negative); Nitrite Urine Negative (Negative); Protein Urine Negative (Negative); Specific Gravity Urine 1.011 (1.000-1.030); Urobilinogen Urine Negative (Negative)
[2024-06-29 10:27] LABS: Basophils # (auto) 0.04 K/uL (0.00-0.20); Basophils % (auto) 0.3 %; Eosinophils # (auto) 0.22 K/uL (0.00-0.50); Eosinophils % (auto) 1.8 %; Hematocrit (blood only) 38.3 % (37.0-47.0); Hemoglobin 12.2 g/dl (12.0-16.0); Immature Granulocytes # (auto) 0.09 K/uL (0.01-0.20); Immature Granulocytes % (auto) 0.7 %; Lymphocytes # (auto) 2.37 K/uL (1.20-3.40); Lymphocytes % (auto) 18.9 %; Mean Corpuscular Hemoglobin 27.2 pg (25.0-34.0); Mean Corpuscular Hgb Conc 31.9 g/dL (32.0-36.0); Mean Corpuscular Volume 85.3 fL (80.0-100.0); Mean Platelet Volume 9.9 fL (9.4-12.4); Monocytes # (auto) 1.15 K/uL (0.11-0.59); Monocytes % (auto) 9.2 %; Neutrophils # (auto) 8.69 K/uL (1.40-6.50); Neutrophils % (auto) 69.1 %; Platelet Count 362 K/uL (130-400); RDW Coefficient of Variation 13.7 % (11.5-14.5); RDW Standard Deviation 42.6 fL (36.4-46.3); Red Blood Count 4.49 M/uL (4.20-5.40); White Blood Count 12.56 K/ul (4.8-10.8)
--- NOTE | 2024-06-29 10:29 | XRay Report ---
XR chest 1V portable CLINICAL HISTORY: L sided chest pain; chronic cough COMPARISON STUDY: Chest radiograph March 26, 2022. Chest radiograph June 21, 2023. FINDINGS: Electronic device projects over the left chest. Lung volumes are normal. Mild linear left b asilar densities are present. There is no pneumothorax or pleural effusion. Cardiomegaly is unchanged . Mediastinal contours are normal. There is no evidence for pulmonary edema. IMPRESSION: 1. Mild linear left basilar densities which favor atelectasis. No consolidation to suggest pneumonia. 2. Cardiomegaly. No evidence for pulmonary edema. ACT 112: Negative or not required by law. Electronically signed by: Magnus Sunshine M.D. 06/29/2024 10:26 AM
[2024-06-29 10:43] LABS: Albumin Globulin Ratio 1.1 (0.9-2); Albumin Level 4.1 gm/dl (3.4-5.0); BUN Creatinine Ratio 35.2 (10-20); Bilirubin,Total 0.4 mg/dl (0.2-1.0); Calcium 9.7 mg/dl (8.6-10.3); Creatinine Clr Calc Pharmacy 77.1 ml/min; Globulin 3.7 gm/dl (2.5-4.0); Total Protein 7.8 gm/dl (6.0-8.3)
[2024-06-29 10:48] LABS: Troponin I High Sensitivity 7.2 pg/ml (0-14)
--- OUTSIDE RECORDS SUMMARY | 2024-06-29 10:57 | External Medical Summary | Summary of Care ---
Author Name Unknown Organization [facility] Address [address] [facility] [place] [address] Phone [phone] Care Team Providers Care Stock Selector Name Role Phone Rosy Cummins PA-C Primary Care Provider [phone] Reason for Visit * Reason Onset Date Comments Advice 06/19/2024 Encounter Details Date Type Department Care Team (Late st Contact Info) Description 06/19/2024 Telephone Interventional Pain Center [facility] [address] [place] [phone] Della Guevara PA-C [address] [place] [address] Advice Allergies Active Allergy Reactions Criticality Noted Date Comments Azelastine Nausea/vomiting 12/29/2023 Cetirizine Other (Please comment) 11/22/2021 headache Latex Rash 10/14/2021 Metoprolol Unknown 10/14/2021 Sulfa Antibiotics 08/13/2002 bactrim only-itching afater 1 week Tartaric Acid Unknown 10/14/2021 Valacyclovir 11/23/2022 Renal calculi documented as of this encounter (statuses as of 06/19/2024) Medications Multiple Vitamins-Minerals (DAILY MULTIVITAMIN) CAPS Take 1 Capsule by mouth every evening. 03/15/20 16 Active Zinc 25 MG TABS Take 1 Tablet by mouth every morning. Active ibuprofen (MOTRIN) 200 MG Tablet Take 2 Tablets by mouth in the morning and 2 Tablets before bedtime. Active CPAP every night at bedtime . Active oxygen IN GAS Use as directed 2 L/min(Oxygen) at bedtime . 2.5 Active Levocetirizine Dihydrochloride 5 MG Oral Tablet Take 1 Tablet by mouth every evening. 11/21/19 22 Active Qvar RediHaler 80 MCG/ACT Inhalation Aerosol Breath Activated (Beclomethasone Diprop HFA)Indications:Dys pnea and respiratory abnormality Inhale 2 Puffs by mouth in the morning and 2 Puffs before bedtime. 3 Each 3 03/17/20 22 Active guaiFENesin ER 600 MG Oral Tablet Extended Release 12 Hour Take 1 Tablet by mouth in the morning. Active Magnesium 400 MG Oral Tablet Take by mouth. At bedtime Active dilTIAZem HCl ER Coated Beads 120 MG Oral Capsule Extended Release 24 Hour (Cardizem CD)Indications:PAF (paroxysmal atrial fibrillation) (HCC) Take 1 Capsule by mouth daily. In the evening. 90 Capsule 3 4 3:40 PM EST 04/08/20 23 Active Meclizine HCl 25 MG Oral Tablet (Antivert) Take 1-2 tablets by mouth 3 times a day as needed for dizziness. 540 Tablet 1 4 9:05 AM EDT 11/23/19 24 Active Sodium Hyaluronate 60 MG/3ML Intra-articular Prefilled Syringe (Durolane) Inject contents of prefilled syringe into the right knee one time. 3 mL 4 3:35 PM EDT 01/02/20 24 Active Olopatadine HCl 0.6 % Nasal SolutionIndications :Phlegm in throat,Vertigo Administer 2 Sprays into nostril in the morning and 2 Sprays before bedtime. 30 g 1 01/24/20 24 Active Famciclovir 250 MG Oral Tablet (Famvir)Indications :Herpes simplex of female genitalia Take 1 Tablet by mouth in the morning. 90 Tablet 1 4 6:15 PM EDT 02/10/20 24 Active Lisinopril 10 MG Oral Tablet (Prinivil)Indicatio ns:Essential hypertension with goal blood pressure less than 140/90 Take 2 Tablets by mouth in the morning. 180 Tablet 3 4 6:37 PM EDT 02/20/20 24 Active Montelukast Sodium 10 MG Oral Tablet (Singulair)Indicati ons:RUDOLPH (dyspnea on exertion),Phlegm in throat TAKE 1 TABLET BY MOUTH EVERYDAY AT BEDTIME 90 Tablet 1 5 7:21 AM EST 03/01/20 24 Active Nitroglycerin 0.4 MG Sublingual Tablet Sublingual (Nitrostat) Place 1 Tablet under the tongue as needed for chest pain. May repeat 3 times. If chest pain continues, call 911. 25 Tablet 11 4 3:40 PM EST 03/14/20 24 Active rOPINIRole HCl 0.25 MG Oral Tablet (Requip) Take 1 Tablet by mouth in the morning and 1 Tablet at noon and 1 Tablet before bedtime. take With food. 90 Tablet 11 5 5:06 PM EST 03/14/20 24 Active Fluconazole 150 MG Oral Tablet (Diflucan)Indicatio ns:Acute cystitis without hematuria Take one tab every 3 days while on antibiotic 4 Tablet 03/14/20 24 Active Albuterol Sulfate HFA 108 (90 Base) MCG/ACT Inhalation Aerosol Solution Inhale 2 Puffs by mouth every 6 hours as needed for stomach irritation. 20.1 g 11/28/19 24 Active Ondansetron HCl 4 MG Oral Tablet Take 1 Tablet by mouth every 8 hours as needed for nausea. 20 Tablet 4 11:36 AM EST 04/30/20 24 Active Senna 8.6 MG Oral Tablet Take 1 Tablet by mouth daily as needed for Constipation for up to 1 dose. 14 Tablet 4 11:36 AM EST 04/30/20 24 Active Simethicone 80 MG Oral Tablet Chewable (Mylicon) Chew and swallow 1 Tablet by mouth as needed for gas. 30 Tablet 4 11:36 AM EST 04/30/20 24 Active traMADol HCl 50 MG Oral Tablet (Ultram) Take 1 tablet by mouth every 6 hours as needed for moderate to severe pain. 20 Tablet 4 11:36 AM EST 04/30/20 24 Active Omeprazole 40 MG Oral Capsule Delayed Release (PriLOSEC) Take 1 Capsule by mouth in the morning. 100 Capsule 2 5 6:08 PM EST 05/09/19 25 Active Gabapentin 100 MG Oral Capsule (Neurontin)Indicati ons:Lumbar radicular pain Take 2 Capsules by mouth in the morning and 2 Capsules at noon and 2 Capsules before bedtime. 540 Capsule 05/22/19 25 025 Active Clobetasol Propionate 0.05 % External Cream (Temovate) Apply topically to affected area daily. 15 g 1 5 12:31 PM EST 05/28/19 25 Active Hospital, Clinic, or Other Facility Administered Medication Ordered Dose Route Frequency Start Date End Date Status Vitamin B-12 (Cyanocobalamin) inj 1,000 mcgIndications:B12 deficiency 1000 mcg IM Q6HOHJA 01/27/2024 12/28/2024 Active documented as of this encounter (statuses as of 06/19/2024) Active Problems Problem Noted Date Diagnosed Date Endometrial cancer 03/28/2024 Cancer Staging:Clinical stage from 04/30/2024:FIGO Stage IA(cT0, cN0, cM0) - Signed by Shekhar Belle MD on 05/05/2024 Chronic obstructive pulmonary disease 01/27/2024 Old ND (myocardial infarction) 01/27/2024 Prediabetes 12/19/2023 Overview: Per Prediabetes protocol Body mass index (BMI) 40.0-44.9, adult 4 Hyperlipidemia with target LDL less than 100 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/2022 Advanced directives, counseling/discussion 04/14 Rectocele 04/14/2018 Stress incontinence 04/14/2018 PAT (paroxysmal atrial tachycardia) 04/14/2018 Pericarditis, chronic 02/11/2017 S/P ablation of atrial fibrillation 11/19/2016 EUSEBIA on CPAP 10/12/2016 Overview (10/12/2016): CPAP 12 cwp, pending NPO once tolerant to treatment [facility] Oxygen Snoring 05/21/2016 HTN, goal below 140/90 05/21/2016 Chronic chest pain 03/15/2016 Dyspnea and respiratory abnormality 08/06/2002 Overview (03/01/2017): ICD-10 update of inactive term Allergic rhinitis 01/30/1999 Back disorder documented as of this encounter (statuses as of 06/19/2024) Resolved Problems Problem Noted Date Diagnosed Date Resolved Date Prediabetes 04/18/2023 08/18/2023 Overview: Per Prediabetes protocol Morbid obesity 11/23/2022 01/03/2023 Chronic obstructive pulmonary disease 09/29/2022 09/29/2022 Morbid obesity with BMI of 40.0-44.9, adult 04/14/2018 07/21/2023 Urinary incontinence, urge 04/14/2018 0 01/03/2023 PAF (paroxysmal atrial fibrillation) 03/15/2016 09/21/2021 ACUTE SINUSITIS NOS 08/06/2002 06/27/19 09 Overview (06/27/2008): Resolved per Benign Acute Dxs Protocol #3 Epistaxis 08/06/2002 08/13/2021 ELEV BL PRES W-O HYPERTN 08/06/200211/2021 Migraine 01/30/1999 09/29/2022 documented as of this encounter (statuses as of 06/19/2024) Immunizations Name Administration Dates Next Due Pneumococcal Conjugate Vacci ne, 20-valent ([id number]) 04/08/2023 Pneumococcal Polysaccharide PPV23 (Pneumovax) 03/20/2016 Seasonal Influenza Virus Vac cine, Unspecified Formulation 02/09/2012,02/16/2011,05/03/2001,05/20,03/10/1999 TDAP (age 10 and older)(Boostrix) 10/14/2021,03/2012,04/08/2010 TDAP, Age 7 and older, IM (Adacel) 09/17/2017 documented as of this encounter Social History Tobacco Use Types Packs/Day Years Used Date Smoking Tobacco: Never Passive Smoke Exposure: Current Smokeless Tobacco: Never Alcohol Use Standard Drinks/Week Comments Yes 0 (1 standard drink = 0.6 oz pur e alcohol) occational glass of wine PHQ-2 Answer Date Recorded PHQ Adult Total Score 0 08/04/2023 Comments No Sex and Gender Information Value Date Recorded Sex Assigned at Not on file Legal Sex Female 5:57 AM EST Gender Identity Not on file Sexual Orientation Straight 10/16/2021 3: 01 PM EDT 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 [facility]. Is interested in coming back here to be seen and discuss other options. Still has pain in left low back/upper buttock and lateral thigh. Scheduled next available with Della. documented in this encounter Plan of Treatment Upcoming Encounters Date Type Department Care Team (Late st Contact Info) Description 06/26/2024 1:30 PM EST Office Visit Gynecology/Oncology, [place] [address] [place] [address] Дмитрий Love PA-C [address] [place] [phone] 07/11/2024 2:40 PM EST Nurse Only Family Practice [address] [facility] [address] [place] [phone] College, Nurse Fam Prac [address] [place] [address] 07/11/2024 3:00 PM EST Office Visit Family Practice [address] [facility] [address] [place] [address] Shekhar Fontaine, [address] [place] [address] 07/24/2024 1:30 PM EDT Office Visit Interventional Pain Center [facility] [address] [place] [phone] Della Guevara PA-C [address] [place] [address] 07/31/2024 11:00 AM EDT Office Visit Interventional Pain Ctr Derrick Escobar [address] [place] [address] Erica Kaufman CRNP [address] [place] [address] 08/01/2024 10:15 AM EDT Office Visit Orthopaedics [facility] [address] [place] [phone] Salinas Levine PA-C [address] [place] [phone] 08/08/2024 1:30 PM EDT Office Visit Cardiology, [facility] [address] [place] [address] Rashaun Felix MD [address] [place] [address] 08/18/2024 1:40 PM EDT Office Visit Family Practice [facility] [address] [place] [address] Rosy Cummins PA-C [address] [place] [address] 09/17/2024 11:30 AM EDT Office Visit Cardiology, [facility] [address] [place] [address] Rashaun Felix MD [address] [place] [address] Scheduled Procedures Name Priority Associated Diagnoses Date/Ti me COLONOSCOPY FLEXIBLE PROXIMA L DIAGNOSTIC Recall Encounter for screening colonoscopy Health Maintenance Due Date Last Done Comments Cologuard 2002 Fecal Occult Blood Test 2002 08/20/1999 Sigmoidoscopy 2002 Colonoscopy 07/27/2021 07/27/2016 Colorectal Cancer Screening 07/27/2021 DXA Scan 2022 Adult Wellness Visit 2023 COVID-19 Vaccine ( season) 2024 Influenza Vaccine (FLU shot) (#1) 2024 02/09/2012, 02/16/2011, 05/03/2001, Additional history exists *COPD SEVERITY VERIFIED BY PFT 01/29/2024 Depression Screening 08/03/2024 08/04/2023 Mammogram 11/08/2024 11/09/2023, 10/09, 06/27/2015, Additional history exists Albumin/Creatinine Ratio 03/17/2025 03/17/2022 HbA1c 04/04/2025 04/04/2024, 07/0 12/2023, 03/28/2023, Additional history exists GFR 04/24/2025 04/24/2024, 03/10, 08/04/2023, Additional history exists O2 ASSESSMENT COMPLETED IN PAST YEAR FOR COPD 04/30/2025 04/30/2024 Lipid Panel 01/15/2028 01/14/2023, 09/06, 11/05/2020, Additional history exists DTap/Tdap Vaccines (5 - Td or Tdap) 10/15/2031 10/14/2021, 09/17/2017, 02/17/2012, Additional history exists Hepatitis B Vaccine Completed 11/23/2000, 05/20/2000, 02/24/2000 RETIRED - COLONOSCOPY-EVERY 5 YRS AGES 18-100 Discontinued 07/27/2016 Pap Smear Discontinued 01/03/2023, 04/08, 06/23/2006, Additional history exists Pneumococcal Vaccine: 50+ Years Completed 04/08/2023, 03/20/2016, 02/24/2000 Alpha-1 Antitrypsin Completed 04/04/2024 HPV (Gardasil) Vaccine Aged Out No lo nger eligible based on patient's age to complete this topic MENINGOCOCCAL (MENACTRA/MENVEO) Aged Out No longer eligible based on patient's age to complete this topic Zoster Vaccines Discontinued documented as of this encounter Medical Devices Implanted Type Area Machine Fixer Device Identifier Shelf Expiration Date Model / Serial / Lot Lens Intraoc 11.5 - [id number] - [id number] Implanted:Qty: 1 on 12/18/2019 by Azam Boo MD at OR [facility] Left: Eye [employer] 10/06/2021 [id number] / [id number] / Lens Intraoc 11.5 - [id number] - [id number] Implanted:Qty: 1 on 12/31/2019 by Azam Boo MD at OR [facility] Right: Eye [employer] 07/06/2024 [id number] / [id number] / [id number] documented as of this encounter Advance Directives * Full Code (Latest Code Status on File) Date Activated Date Inactivated Comments 04/30/2024 9:07 AM 04/30/2024 4:36 PM This order reflects the patients wishes and were consensually agreed upon. Question Answer Comments Discussion of Advance Direct leslie occurred with: Not Discussed due to patient's condition * Full Code Date Activated Date Inactivated Comments 11/18/2016 1:02 PM 11/19/2016 3:42 PM This order r eflects the patients wishes and were consensually agreed upon. Care Teams Stock Selector Relationship Specialty Start Date End Date Rosy Cummins PA-C [address] [place] [address] PCP - General Physician House Painter Helper 04/30/24 documented as of this encounter
--- OUTSIDE RECORDS SUMMARY | 2024-06-29 10:57 | External Medical Summary | Summary of Care ---
Author Name Unknown Organization [facility] Address [address] [facility] [address] Phone [phone] Care Team Providers Care Transplanter Orchid Name Role Phone Rosy Cummins PA-C Primary Care Provider [phone] Encounter Details Date Type Department Care Team (Late st Contact Info) Description 03/19/2024 Telephone Gynecology/Obstetrics [facility] [address] [place] [address] Jefe Lagunas MD [address] [place] [address] Allergies Active Allergy Reactions Criticality Noted Date [...] daily. In the evening. 90 Capsule 3 03/15/2024 3:40 PM EST 04/08/20 23 Active Meclizine HCl 25 MG Oral Tablet (Antivert) Take 1-2 tablets by mouth 3 times a day as needed for dizziness. 540 Tablet 1 02/22/2024 9:05 AM EDT 11/23/19 24 Active Sodium Hyaluronate 60 MG/3ML Intra-articular Prefilled Syringe (Durolane) Inject contents of prefilled syringe into the right knee one time. 3 mL 02/15/2024 3:35 PM EDT 01/02/20 24 Active Olopatadine HCl 0.6 % Nasal SolutionIndications :Phlegm in throat,Vertigo Administer 2 Sprays into nostril in the morning and 2 Sprays before bedtime. 30 g 1 01/24/20 24 Active Famciclovir 250 MG Oral Tablet (Famvir)Indications :Herpes simplex of female genitalia Take 1 Tablet by mouth in the morning. 90 Tablet 1 02/10/2024 6:15 PM EDT 02/10/20 24 Active Lisinopril 10 MG Oral Tablet (Prinivil)Indicatio ns:Essential hypertension with goal blood pressure less than 140/90 Take 2 Tablets by mouth in the morning. 180 Tablet 3 02/22/2024 6:37 PM EDT 02/20/20 24 Active Montelukast Sodium 10 MG Oral Tablet (Singulair)Indicati ons:RUDOLPH (dyspnea on exertion),Phlegm in throat TAKE 1 TABLET BY MOUTH EVERYDAY AT BEDTIME 90 Tablet 1 05/29/2024 7:21 AM EST 03/01/20 24 Active Nitroglycerin 0.4 MG Sublingual Tablet Sublingual (Nitrostat) Place 1 Tablet under the tongue as needed for chest pain. May repeat 3 times. If chest pain continues, call 911. 25 Tablet 11 03/15/2024 3:40 PM EST 03/14/20 24 Active rOPINIRole HCl 0.25 MG Oral Tablet (Requip) Take 1 Tablet by mouth in the morning and 1 Tablet at noon and 1 Tablet before bedtime. take With food. 90 Tablet 11 06/08/2024 5:06 PM EST 03/14/20 24 Active Fluconazole 150 MG Oral Tablet (Diflucan)Indicatio ns:Acute cystitis without hematuria Take one tab every 3 days while on antibiotic 4 Tablet 03/14/20 Active Hospital, Clinic, or Other Facility Administered Medication Ordered Dose Route Frequency Start Date End Date Status Vitamin B-12 (Cyanocobalamin) inj 1,000 mcgIndications:B12 deficiency 1000 mcg IM [id number] 01/27/2024 12/28/2024 Active documented as of this encounter (statuses as of 06/19/2024) Active Problems Problem Noted Date Diagnosed Date Endometrial cancer 03/28/2024 Cancer Staging:Clinical stage from 04/30/2024:FIGO Stage IA(cT0, cN0, cM0) - Signed by Shekhar Belle MD on 05/05/2024 Chronic obstructive pulmonary disease 01/27/2024 Old [place] (myocardial infarction) 01/27/2024 Prediabetes 12/19/2023 Overview: Per Prediabetes protocol Body mass index (BMI) 40.0-44.9, adult Hyperlipidemia with target LDL less than 100 [...] Next Due Pneumococcal Conjugate Vacci ne, 20-valent ([id number]) 04/08/2023 Pneumococcal Polysaccharide PPV23 (Pneumovax) 03/20/2016 Seasonal [...] 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 Pt called and cancelled appt today again. Office called her back and was asked to hold so I could talk to her. Pt hung up before I could get to the phone. I immediately called her back and got a machine. Have left message foe her to call back. ARABELLA documented in this encounter Plan of Treatment Upcoming Encounters Date Type Department Care Team (Late st Contact Info) Description 06/19/2024 11:30 AM EST Imaging Vascular Lab, [facility], [address] [place] [address] 06/26/2024 1:30 PM EST Office Visit Gynecology/[facility], [place] [address] [facility] [address] Дмитрий Love PA-C [address] [facility] [address] 07/31/2024 11:00 AM EDT Office Visit Interventional Pain Ctr Derrick Escobar [address] [place] [address] Erica Kaufman CRNP 16 [facility] [place] [address] 08/01/2024 10:15 AM EDT Office Visit Orthopaedics [facility] [address] [place] [place] [phone] Salinas Levine PA-C [address] [place] [phone] 08/08/2024 1:30 PM EDT Office Visit Cardiology, [facility] [address] [place] [id number] Rashaun Felix MD [address] [place] [address] 08/18/2024 1:40 PM EDT Office Visit Family Practice [facility] [address] [place] [address] Rosy Cummins PA-C [address] [facility] [address] 09/17/2024 11:30 AM EDT Office Visit Cardiology, [facility] 132 [facility] [place] [id number] Rashaun Felix MD [address] [place] [address] Scheduled Procedures Name Priority Associated Diagnoses Date/Ti [...] this encounter Medical Devices Implanted Type Area Law Instructor Device Identifier Shelf Expiration Date Model / Serial / Lot Lens Intraoc 11.5 - [id number] - [id number] Implanted:Qty: 1 on 12/18/2019 by Azam Boo MD at [facility] Left: Eye [employer]OM[employer] 10/06/2021 [id number] / [id number] / Lens Intraoc 11.5 - [id number] - [id number] Implanted:Qty: 1 on 12/31/2019 by Azam Boo MD at OR [facility] Right: Eye BAUSCH & LOMB 07/06/2024 [id number] / [id number] / [id number] documented as of this encounter Advance Directives [...] and were consensually agreed upon. Care Teams Transplanter Orchid Relationship Specialty Start Date End Date Rosy Cummins PA-C [address] [place] [address] PCP - General Physician Tea Plantation Worker 04/30/24 documented as of this encounter
--- OUTSIDE RECORDS SUMMARY | 2024-06-29 10:57 | External Medical Summary | Summary of Care ---
Author Name Unknown Organization [facility] Address [address] [facility] [place] [address] Phone [phone] Care Team Providers Care Culled Fruit Packer Name Role Phone Rosy Cummins PA-C Primary Care Provider [phone] Reason for Visit * Reason Comments Acute Encounter Details Date Type Department Care Team (Late st Contact Info) Description 05/31/2024 3:20 PM EST Telemedicine Family Practice [facility] [address] [place] [address] Joel Hayes MD [address] [place] [address] [place] [address] Chronic maxillary sinusitis* Allergies Active Allergy Reactions Criticality Noted Date Comments Azelastine Nausea/vomiting 12/29/2023 Cetirizine Other (Please comment) 11/22/2021 headache Latex Rash 10/14/2021 Metoprolol Unknown 10/14/2021 Sulfa Antibiotics 08/13/2002 bactrim only-itching afater 1 week Tartaric Acid Unknown 10/14/2021 Valacyclovir 11/23/2022 Renal calculi documented as of this encounter (statuses as of 05/31/2024) Medications Multiple Vitamins-Minerals (DAILY MULTIVITAMIN) CAPS Take [...] MCG/ACT Inhalation Aerosol Breath Activated (Beclomethasone Diprop HFA)Indications:Dy spnea and respiratory abnormality Inhale 2 Puffs by [...] 24 Active Olopatadine HCl 0.6 % Nasal SolutionIndication s:Phlegm in throat,Vertigo Administer 2 Sprays into nostril in the morning and 2 Sprays before bedtime. 30 g 1 01/24/20 24 Active Famciclovir 250 MG Oral Tablet (Famvir)Indication s:Herpes simplex of female genitalia Take 1 Tablet by mouth in the morning. 90 Tablet 1 4 6:15 PM EDT 02/10/20 24 Active Lisinopril 10 MG Oral Tablet (Prinivil)Indicati ons:Essential hypertension with goal blood pressure less than 140/90 Take 2 Tablets by mouth in the morning. 180 Tablet 3 4 6:37 PM EDT 02/20/20 24 Active Montelukast Sodium 10 MG Oral Tablet (Singulair)Indicat ions:RUDOLPH (dyspnea on exertion),Phlegm in throat TAKE 1 [...] bedtime. take With food. 90 Tablet 11 4 3:40 PM EST 03/14/20 24 Active Fluconazole 150 MG Oral Tablet (Diflucan)Indicati ons:Acute cystitis without hematuria Take one tab every [...] 25 Active Gabapentin 100 MG Oral Capsule (Neurontin)Indicat ions:Lumbar radicular pain Take 2 Capsules by mouth in the morning and 2 Capsules at noon and 2 Capsules before bedtime. 540 Capsule 05/22/19 25 025 Active Clobetasol Propionate 0.05 % External Cream (Temovate) Apply topically to affected area daily. 15 g 1 5 12:31 PM EST 05/28/19 25 Active Azithromycin 250 MG Oral Tablet (Zithromax)Indicat ions:Chronic maxillary sinusitis Take 2 tabs by mouth on the first day, then 1 tab daily on days two through five 6 Tablet 05/31/19 25 025 Active hydroCHLOROthiazid e 25 MG Oral Tablet (Hydrodiuril)Indic ations:PAF (paroxysmal atrial fibrillation) (HCC) Take 1 Tablet by mouth in the morning. 90 Tablet 3 06/15/19 23 024 Discontin ued(Patie nt preferenc e/discont inuation) busPIRone HCl 15 MG Oral Tablet (Buspar)Indication s:Stress Oneh fdc to one whole tab by mouth up to three times a day as needed for nerves 20 Tablet 04/08/20 23 024 Discontin ued(Patie nt preferenc e/discont inuation) Ondansetron HCl 4 MG Oral Tablet (Zofran)Indication s:Nausea Take 1 Tablet by mouth every 8 hours as needed for Nausea. 20 Tablet 12/07/19 24 024 Discontin ued(Refil l) Fluconazole 150 MG Oral Tablet (Diflucan)Indicati ons:Vaginal discharge Take 1 Tablet by mouth once for 1 dose. 1 Tablet 02/06/20 24 024 Discontin ued(End of Procedure ) Amoxicillin-Pot Clavulanate 875-125 MG Oral Tablet (Augmentin)Indicat ions:Acute cystitis without hematuria Take 1 Tablet by mouth in the morning and 1 Tablet before bedtime. 20 Tablet 03/14/20 24 024 Discontin ued(End of Procedure ) Azithromycin 250 MG Oral Tablet (Zithromax Z-Hal) Take two tablets by mouth on first day, then 1 tablet daily until gone 6 Tablet 04/19/20 24 12/17/2 024 Discontin ued(End of Procedure ) Hospital, Clinic, or Other Facility Administered Medication Ordered Dose Route Frequency Start Date End Date Status Vitamin B-12 (Cyanocobalamin) inj 1,000 mcgIndications:B12 deficiency 1000 mcg IM [id number] 01/27/2024 12/28/2024 Active documented as of this encounter (statuses as of 05/31/2024) Active Problems Problem Noted Date Diagnosed Date Endometrial cancer 03/28/2024 Cancer Staging:Clinical stage from 04/30/2024:FIGO Stage IA(cT0, cN0, cM0) - Signed by Shekhar Belle MD on 05/05/2024 Chronic obstructive pulmonary disease 01/27/2024 Old [place] (myocardial infarction) 01/27/2024 Prediabetes 12/19/2023 Overview: Per [...] as of this encounter (statuses as of 05/31/2024) Resolved Problems Problem Noted Date Diagnosed Date [...] as of this encounter (statuses as of 05/31/2024) Immunizations Name Administration Dates Next Due Pneumococcal Conjugate Vacci ne, 20-valent ([id number]) 04/08/2023 Pneumococcal Polysaccharide PPV23 (Pneumovax) 03/20/2016 Seasonal [...] 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 She had one just before her obstetrics gyn physician surgery. The top of her head feels like it is going to blow off Patient location: HOME. I was in a hospital or clinic location. After connecting through televideo,patient was verified with two unique identifiers. Patient (or authorized legal retail field representative) was then informed that this was a Telemedicine visit and being conducted confidentially over secure lines. Methods to assure confidentiality were taken. Patient acknowledged consent and understanding of pr ivacy and security of the Telemedicine visit. The patient agreed to participate. Review of patient's allergies indicates: Allergen Reactions Astelin [Azelastine] Nausea/vomiting Cetirizine Other (Please comment) headache Latex Rash Metoprolol Unknown Sulfa Antibiotics bactrim only-itching afater 1 week Tartaric Acid Unknown Valtrex [Valacyclovir] Renal calculi A: Chronic maxillary sinusitis (Primary) - Azithromycin 250 MG Oral Tablet (Zithromax); Take 2 tabs by mouth on the first day, then 1 tab daily on days two through five Follow Up: Return if symptoms worsen or fail to improve. Follow Up: Return if symptoms worsen or fail to improve. This has worked before. documented in this encounter Plan of Treatment Upcoming Encounters Date Type Department Care Team (Late st Contact Info) Description 06/06/2024 3:00 PM EST Imaging Vascular Lab, [facility] 2nd [facility], [address] [address] 06/14/2024 11:00 AM EST Office Visit Gynecology/Oncology, [place] [address] [place] [address] Дмитрий Love PA-C [address] [place] [phone] 07/31/2024 11:00 AM EDT Office Visit Interventional Pain Ctr Derrick Escobar [address] [place] [address] Erica Kaufman CRNP 16 [place] [address] 08/01/2024 10:15 AM EDT Office Visit Orthopaedics [facility] [address] [place] [phone] Sal[place] Levine PA-C [address] [place] [phone] 08/08/2024 1:30 PM EDT Office Visit Cardiology, [facility] [address] [place] [address] Rashaun Felix MD [address] [place] [address] 08/18/2024 1:40 PM EDT Office Visit Family Practice [facility] [address] [place] [address] Rosy Cummins PA-C [address] [place] [address] 09/17/2024 11:30 AM EDT Office Visit Cardiology, [facility] [address] [place] [address] Rashaun Felix MD [address] [place] [address] Scheduled Procedures Name Priority Associated Diagnoses Date/Ti [...] this encounter Medical Devices Implanted Type Area Physical Education Teacher Device Identifier Shelf Expiration Date Model / Serial / Lot Lens Intraoc 11.5 - [id number] - [id number] Implanted:Qty: 1 on 12/18/2019 by Azam Boo MD at [facility] Left: Eye [employer]CH [employer] LOMB 10/06/2021 [id number] / [id number] / Lens Intraoc 11.5 - [id number] - [id number] Implanted:Qty: 1 on 12/31/2019 by Azam Boo MD at [facility] Right: Eye BAUSCH & LOMB 07/06/2024 [id number] / [id number] / [id number] documented as of this encounter Visit Diagnoses Diagnosis Chronic maxillary sinusitis- Primary documented in this encounter Advance Directives * Full Code (Latest Code Status on File) Date Activated Date Inactivated Comments 04/30/2024 9:07 AM 04/30/2024 4:36 PM This order reflects the patients wishes and were consensually agreed upon. Question Answer Comments Discussion of Advance Direct lselie occurred with: Not Discussed due to patient's condition * Full Code Date Activated Date Inactivated Comments 11/18/2016 1:02 PM 11/19/2016 3:42 PM This order r eflects the patients wishes and were consensually agreed upon. Care Teams Culled Fruit Packer Relationship Specialty Start Date End Date Rosy Cummins PA-C [address] [place] [address] PCP - General Physician Community Service Coordinator 04/30/24 documented as of this encounter
--- OUTSIDE RECORDS SUMMARY | 2024-06-29 10:57 | External Medical Summary | Summary of Care ---
Author Name Unknown Organization [facility] Address [address] [facility] [place] [address] Phone [phone] Care Team Providers Care Leaf Binner Name Role Phone Rosy Cummins PA-C Primary Care Provider [phone] [phone] Reason for Referral * Precert (Within 10 days (routine)) - Pending Review Specialty Diagnoses / Procedures Referred By Jeremías staley Referred To Contact Radiology Diagnoses Endometrial cancer (HCC) Abdominal pain, unspecified abdominal location Procedures CT ABD/PELVIS W IV AND W ORAL CONTRAST Дмитрий Love PA-C [address] [facility] [place] [address] Phone: tel: fax: Referral ID Status Reason Start Date Expiration Date V isits Requested Visits Authorized [id number] Pending Review 06/27/2024 999 999 Reason for Visit * Reason Comments Follow Up 6 week post op Encounter Details Date Type Department Care Team (Late st Contact Info) Description 06/26/2024 1:30 PM EST Office Visit Gynecology/Oncology, [place] [address] [place] [address] Дмитрий Love PA-C [address] [place] [address] Endometrial cancer (HCC)*; Abdominal pain, unspecified abdominal location Allergies Active Allergy Reactions Criticality Noted Date Comments Azelastine Nausea/vomiting 12/29/2023 Cetirizine Other (Please comment) 11/22/2021 headache Latex Rash 10/14/2021 Metoprolol Unknown 10/14/2021 Sulfa Antibiotics 08/13/2002 bactrim only-itching afater 1 week Tartaric Acid Unknown 10/14/2021 Valacyclovir 11/23/2022 Renal calculi documented as of this encounter (statuses as of 06/27/2024) Medications Multiple Vitamins-Minerals (DAILY MULTIVITAMIN) CAPS Take 1 Capsule by mouth every evening. 03/15/20 Active Zinc 25 MG TABS Take 1 [...] 1 Tablet by mouth every evening. 11/21/19 Active Qvar RediHaler 80 MCG/ACT Inhalation Aerosol Breath Activated (Beclomethasone Diprop HFA)Indications:Dys pnea and respiratory abnormality Inhale 2 Puffs by mouth in the morning and 2 Puffs before bedtime. 3 Each 3 03/17/20 Active guaiFENesin ER 600 MG Oral Tablet Extended Release 12 Hour Take 1 Tablet by mouth in the morning. Active Magnesium 400 MG Oral Tablet Take by mouth. At bedtime Active Meclizine HCl 25 MG Oral Tablet (Antivert) Take 1-2 tablets by mouth 3 times a day as needed for dizziness. 540 Tablet 1 4 9:05 AM EDT 11/23/19 24 Active Sodium Hyaluronate 60 MG/3ML Intra-articular Prefilled Syringe (BlikBookolaWebcrumbz) Inject contents of prefilled syringe into the [...] 5 12:31 PM EST 05/28/19 25 Active dilTIAZem HCl ER Coated Beads 120 MG Oral Capsule Extended Release 24 Hour (Cardizem CD)Indications:PAF (paroxysmal atrial fibrillation) (HCC) Take 1 Capsule by mouth daily. In the evening. 90 Capsule 1 5 3:40 PM EST 06/22/19 25 Active Hospital, Clinic, or Other Facility Administered Medication Ordered Dose Route Frequency Start Date End Date Status Vitamin B-12 (Cyanocobalamin) inj 1,000 mcgIndications:B12 deficiency 1000 mcg IM [id number] 01/27/2024 12/28/2024 Active documented as of this encounter (statuses as of 06/27/2024) Active Problems Problem Noted Date Diagnosed Date Endometrial cancer 03/28/2024 Cancer Staging:Clinical stage from 04/30/2024:FIGO Stage IA(cT0, cN0, cM0) - Signed by Shekhar Belle MD on 05/05/2024 Chronic obstructive pulmonary disease 01/27/2024 Old [place] (myocardial infarction) 01/27/2024 Prediabetes 12/19/2023 Overview: Per [...] as of this encounter (statuses as of 06/27/2024) Resolved Problems Problem Noted Date Diagnosed Date [...] as of this encounter (statuses as of 06/27/2024) Immunizations Name Administration Dates Next Due Pneumococcal Conjugate Vacci ne, 20-valent ([id number]) 04/08/2023 Pneumococcal Polysaccharide PPV23 (Pneumovax) 03/20/2016 Seasonal Influenza Virus Vac cine, Unspecified Formulation 02/09/2012,02/16/2011,05/03/2001,05/20,03/10/1999 TDAP (age 10 and older)(Boostrix) 10/14/2021,03/2012,04/08/2010 TDAP, Age 7 and older, IM (Adacel) 09/17/2017 documented as of this encounter Social History Tobacco Use Types Packs/Day Years Used Date Smoking Tobacco: Never Passive Smoke Exposure: Current Smokeless Tobacco: Never Tobacco Cessation:Counseling Given: Not Answered Alcohol Use Standard Drinks/Week Comments Yes 0 [...] 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, 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 Not on file documented as of this encounter Last Filed Vital Signs Vital Sign Reading Time Taken Comments Blood Pressure 120/64 06/26/2024 1:01 PM EST Pulse - - Temperature - - Respiratory Rate - - Oxygen Saturation - - Inhaled Oxygen Concentration - - Weight 106.3 kg (234 lb 6.4 oz) 06/26/2024 1:01 PM EST Height - - Body Mass Index 42.87 04/30/2024 5:38 AM EST documented in this encounter Progress Notes * Дмитрий Love PA-C - 06/26/2024 1:30 PM EST CC: Post operative appointment HPI: Kateryna Ortez is a 69 year old female with a history of Stage IA undifferentiated endometrialcancer who presents today for a post-op exam. On 04/30/2024 the patient underwent a robotic assisted total laparoscopic hysterectomy with bilateral salpingo-oophorectomy and bilateral sentinel pelvic lymph node dissection with Dr. Belle. Postoperatively, the patient requires no further treatment. Returns for last post-op visit today. She complains that since surgery she has had a sharp stabbing/pulling sensation in her lower abdomen that takes her breath away when she is going up stairs or onher feet for extended periods of time. Denies nausea, vomiting, or diarrhea. Appetite is good. She also has pelvic pressure and feels like she is in labor and "things are falling out" as well as generalized weakness and shaking of her legs if on her feet for more than 2 hours at a time. Denies hematuria, dysuria, has baseline urinary frequency with some stress incontinence. She has some constipation that resolves with stool softeners. Had some vaginal spotting 2 weeks ago. She slipped on the ice and fallen twice in the last 8 weeks and now has pain in her knee, left foot, wrist, and back. Herback pain did improve slightly with the use of a back brace. Bladder function has normalized. Denies fevers or chills. Denies any problems with wound. Denies lower extremity pain or swelling. Physical Exam: BP 120/64 (BP Site: Right Arm, BP Position: Sitting, BP Cuff Size: Large) | Wt 106.3 kg (234 lb 6.4oz) | LMP 06/06/2006 | BMI 42.87 kg/m | BSA 2.16 m General: Pleasant, well nourished, no apparent distress, alert and oriented x3. Abdomen: Soft, tender to palpation with guarding in BL lower quadrants and LUQ Incisions: Healing well. No induration or fluctuance or erythema. 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 Impression: - Final pathology: Stage IA undifferentiated endometrial carcinoma - Tumor Board Recommendations: Observation Plan: 1. Post-op: - All postop restrictions lifted, increase activity as tolerated - Patient with persistent sharp abdominal pain and tenderness on exam. Will order CT A/P to evaluate. 2. Stage IA undifferentiated endometrial carcinoma - Return in 3 months for routine surveillance - Reviewed surveillance schedule (q 3 months x 2 years, q 6 months x 3 years, yearly thereafter) - We reviewed the signs and symptoms of recurrence which include; vaginal bleeding/discharge, unexplained change in weight, constant fatigue, pain, bloating, LE swelling, change in appetite and persistent indigestion or nausea vulvar itching and new vulvar or vaginal masses and to call with any concerns. Patient verbalized understanding of diagnosis & treatment plan and had no further questions. Дмитрий Love PA-C Gynecologic Oncology 06/26/2024 documented in this encounter Nursing Notes * Urmila Fitzpatrick TECH - 06/26/2024 1:04 PM EST Kateryna is presented to the clinic today for her 6 week post op her daughter Kirstie Aguillon is with her today. documented in this encounter Plan of Treatment Upcoming Encounters Date Type Department Care Team (Late st Contact Info) Description 07/11/2024 2:40 PM EST Nurse Only Family Practice [address] [facility] [address] [place] [phone] College, Nurse [facility] [address] [address] 07/11/2024 3:00 PM EST Office Visit Family Practice [facility] 293 [place] [phone] Shekhar Fontaine, 293 [place] [address] 07/24/2024 1:30 PM EDT Office Visit Interventional Pain Center [facility] [address] [facility] [place] [address] Della Guevara PA-C [address] [facility] [place] [address] 07/31/2024 11:00 AM EDT Office Visit Interventional Pain Ctr [facility] [address] [place] [address] Erica Kaufman CRNP 16 [place] [address] 08/01/2024 10:15 AM EDT Office Visit Orthopaedics [facility] [address] [place] [address] Salinas Levine PA-C [address] [place] [address] 08/08/2024 1:30 PM EDT Office Visit Cardiology, [facility] [address] [facility] [address] Rashaun Felix MD [address] [place] [address] 08/18/2024 1:40 PM EDT Office Visit Family Practice [facility] [address] [place] [address] Rosy Cummins PA-C [address] [place] [address] 09/17/2024 11:30 AM EDT Office Visit Cardiology, [facility] [address] [place] [address] Rashaun Felix MD [address] [place] [address] 09/25/2024 11:30 AM EDT Office Visit Gynecology/Oncology, [place] [address] [place] [address] Дмитрий Love PA-C [address] [place] [phone] Scheduled Orders Name Type Priority Associated Diagnoses Orde r Schedule CT ABD/PELVIS W IV AND W ORAL CONTRAST Medical Imaging Routine Endometrial cancer (HCC) Abdominal pain, unspecified abdominal location Expected: 06/27/2024, Expires: 07/24/2025 BASIC METABOLIC PANEL Lab Routine Endometrial cancer (HCC) Abdominal pain, unspecified abdominal location Expected: 06/26/2024, Expires: 06/26/2025 Scheduled Procedures Name Priority Associated Diagnoses Date/Ti [...] on patient's age to complete this topic Meningitis B Vaccine (Bexsero/Trumemba) Aged Out No longer eligible based on patient's age to complete this topic Zoster Vaccines Discontinued documented as of this encounter Medical Devices Implanted Type Area Wood Grinder Operator Device Identifier Shelf Expiration Date Model / Serial / Lot Lens Intraoc 11.5 - [id number] - [id number] Implanted:Qty: 1 on 12/18/2019 by Azam Boo MD at OR [facility] Left: Eye BAUSCH [employer] LOMB 10/06/2021 [id number] / [id number] / Lens Intraoc 11.5 - [id number] - [id number] Implanted:Qty: 1 on 12/31/2019 by Azam Boo MD at OR [facility] Right: Eye BAUSCH & LOMB 07/06/2024 [id number] / [id number] / [id number] documented as of this encounter Visit Diagnoses Diagnosis Endometrial cancer (HCC)- Primary Malignant neoplasm of corpus uteri, except isthmus Abdominal pain, unspecified abdominal location documented in this encounter Advance Directives * [...] and were consensually agreed upon. Care Teams Leaf Binner Relationship Specialty Start Date End Date Rosy Cummins PA-C [facility] [place] [address] PCP - General Physician Policy Issue Clerk 04/30/24 documented as of this encounter
--- OUTSIDE RECORDS SUMMARY | 2024-06-29 10:57 | External Medical Summary | Summary of Care ---
Author Name Unknown Organization [facility] Address [address] [facility] [place] [address] Phone [phone] Care Team Providers Care Overnight Stocker Name Role Phone Rosy Jansen PA-C Primary Care Provider [phone] Reason for Visit * Reason Comments Medication Refill Encounter Details Date Type Department Care Team (Late st Contact Info) Description 06/22/2024 Refill Family Practice [facility] [address] [place] [address] Rosy Jansen PA-C [address] [place] [id number] PAF (paroxysmal atrial fibrillation) ([facility]) Allergies Active Allergy Reactions Criticality Noted Date Comments Azelastine Nausea/vomiting 12/29/2023 Cetirizine Other (Please comment) 11/22/2021 headache Latex Rash 10/14/2021 Metoprolol Unknown 10/14/2021 Sulfa Antibiotics 08/13/2002 bactrim only-itching afater 1 week Tartaric Acid Unknown 10/14/2021 Valacyclovir 11/23/2022 Renal calculi documented as of this encounter (statuses as of 06/22/2024) Medications Multiple Vitamins-Minerals (DAILY MULTIVITAMIN) CAPS Take [...] daily. In the evening. 90 Capsule 1 06/22/19 25 Active dilTIAZem HCl ER Coated Beads 120 MG Oral Capsule Extended Release 24 Hour (Cardizem CD)Indications:PAF (paroxysmal atrial fibrillation) (HCC) Take 1 Capsule by mouth daily. In the evening. 90 Capsule 3 4 3:40 PM EST 04/08/20 23 025 Discontin ued(Refil l) Hospital, Clinic, or Other Facility Administered Medication Ordered Dose Route Frequency Start Date End Date Status Vitamin B-12 (Cyanocobalamin) inj 1,000 mcgIndications:B12 deficiency 1000 mcg IM [id number] 01/27/2024 12/28/2024 Active documented as of this encounter (statuses as of 06/22/2024) Active Problems Problem Noted Date Diagnosed Date Endometrial cancer 03/28/2024 Cancer Staging:Clinical stage from 04/30/2024:FIGO Stage IA(cT0, cN0, cM0) - Signed by Shekhar Belle MD on 05/05/2024 Chronic obstructive pulmonary disease 01/27/2024 Old [place] (myocardial infarction) 01/27/2024 Prediabetes 12/19/2023 Overview: Per [...] as of this encounter (statuses as of 06/22/2024) Resolved Problems Problem Noted Date Diagnosed Date [...] as of this encounter (statuses as of 06/22/2024) Immunizations Name Administration Dates Next Due Pneumococcal Conjugate Vacci ne, 20-valent ([id number]) 04/08/2023 Pneumococcal Polysaccharide PPV23 (Pneumovax) 03/20/2016 Seasonal [...] 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 In the evening.Authorizing Provider: ROSY JANSEN User: SANTY GUADALUPE documented in this encounter Plan of Treatment Upcoming Encounters Date Type Department Care Team (Late st Contact Info) Description 06/26/2024 1:30 PM EST Office Visit Gynecology/Oncology, [place] [address] [place] [address] Дмитрий Love PA-C [address] [place] [address] 07/11/2024 2:40 PM EST Nurse Only Family Practice 65 [facility] 293 [place] [phone] College, Nurse Fam Prac [address] [address] 07/11/2024 3:00 PM EST Office Visit Family Practice 65 [facility] 293 [place] [address] Shekhar Fontaine, 293 [facility] [place] [address] 07/24/2024 1:30 PM EDT Office Visit Interventional Pain Center [facility] [address] [facility] [place] [phone] Della Guevara PA-C [facility] [place] [address] 07/31/2024 11:00 AM EDT [facility] [address] [place] [address] Erica Kaufman CRNP 16 [place] [address] 08/01/2024 10:15 AM EDT Office Visit Orthopaedics [facility] [place] [phone] Salinas Levine PA-C [facility] [place] [phone] 08/08/2024 1:30 PM EDT Office Visit Cardiology, [facility] 132 [facility] [place] [address] Rashaun Felix MD [address] [place] [address] 08/18/2024 1:40 PM EDT Office Visit Family Practice [facility] [address] [place] [address] Rosy Jansen PA-C [address] [place] [address] 09/17/2024 11:30 AM EDT Office Visit Cardiology, [facility] [address] [place] [address] Rashaun Felix MD [address] [place] [address] Scheduled Procedures Name Priority Associated Diagnoses Date/Ti [...] this encounter Medical Devices Implanted Type Area Podiatric Physician Device Identifier Shelf Expiration Date Model / Serial / Lot Lens Intraoc 11.5 - [id number] - [id number] Implanted:Qty: 1 on 12/18/2019 by Azam Boo MD at OR [facility] Left: Eye BAUSCH & LOMB 10/06/2021 [id number] / [id number] / Lens Intraoc 11.5 - [id number] - [id number] Implanted:Qty: 1 on 12/31/2019 by Azam Boo MD at OR [facility] Right: Eye BAUSCH & LOMB 07/06/2024 [id number] / [id number] / [id number] documented as of this encounter Visit Diagnoses Diagnosis PAF (paroxysmal atrial fibrillation) (HCC) Atrial fibrillation documented in this encounter Advance Directives * [...] and were consensually agreed upon. Care Teams Overnight Stocker Relationship Specialty Start Date End Date Rosy Jansen PA-C [address] [place] [address] PCP - General Physician Manager Technical 04/30/24 documented as of this encounter
--- OUTSIDE RECORDS SUMMARY | 2024-06-29 10:57 | External Medical Summary | Summary of Care ---
Author Name Unknown Organization [facility] Address [address] [facility] [place] [address] Phone [phone] Care Team Providers Care Sample Tailor Name Role Phone Rosy Cummins PA-C Primary Care Provider +1 [phone] Encounter Details Date Type Department Care Team (Late st Contact Info) Description 06/19/2024 Population Health External Data Unspecified Department Allergies Active Allergy Reactions Criticality Noted Date Comments Azelastine Nausea/vomiting 12/29/2023 Cetirizine Other (Please comment) 11/22/2021 headache Latex Rash 10/14/2021 Metoprolol Unknown 10/14/2021 Sulfa Antibiotics 08/13/2002 bactrim only-itching afater 1 week Tartaric Acid Unknown 10/14/2021 Valacyclovir 11/23/2022 Renal calculi documented as of this encounter (statuses as of 06/20/2024) Medications Multiple Vitamins-Minerals (DAILY MULTIVITAMIN) CAPS Take [...] 24 Hour (Cardizem CD)Indications:PAF (paroxysmal atrial fibrillation) ([facility]) Take 1 Capsule by mouth daily. In [...] inj 1,000 mcgIndications:B12 deficiency 1000 mcg IM [id number] 01/27/2024 12/28/2024 Active documented as of this encounter (statuses as of 06/20/2024) Active Problems Problem Noted Date Diagnosed Date Endometrial cancer 03/28/2024 Cancer Staging:Clinical stage from 04/30/2024:FIGO Stage IA(cT0, cN0, cM0) - Signed by Shekhar Belle MD on 05/05/2024 Chronic obstructive pulmonary disease 01/27/2024 Old [place] (myocardial infarction) 01/27/2024 Prediabetes 12/19/2023 Overview: Per [...] as of this encounter (statuses as of 06/20/2024) Resolved Problems Problem Noted Date Diagnosed Date [...] as of this encounter (statuses as of 06/20/2024) Immunizations Name Administration Dates Next Due Pneumococcal Conjugate Vacci ne, 20-valent ([id number]) 04/08/2023 Pneumococcal Polysaccharide PPV23 (Pneumovax) 03/20/2016 Seasonal [...] 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, 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 Not on file documented as of this encounter Plan of Treatment Upcoming Encounters Date Type Department Care Team (Late st Contact Info) Description 06/26/2024 1:30 PM EST Office Visit Gynecology/Oncology, [place] [address] [place] [address] Дмитрий Love PA-C [address] [place] [phone] 07/11/2024 2:40 PM EST Nurse Only Family Practice 65 [facility] 293 [place] [phone] College, Nurse Fam Prac [address] [address] 07/11/2024 3:00 PM EST Office Visit Family Practice 65 [facility] 293 [place] [phone] Shekhar Fontaine, DO [address] [place] [address] 07/24/2024 1:30 PM EDT Office Visit Interventional Pain Center [facility] [address] [place] [phone] Della Guevara PA-C [address] [facility] [address] 07/31/2024 11:00 AM EDT Office Visit Interventional Pain Ctr [facility] 16 [place] [address] Erica Kaufman CRNP 16 [place] [address] 08/01/2024 10:15 AM EDT Office Visit Orthopaedics [facility] [address] [place] [phone] Salinas Levine PA-C [address] [place] [phone] 08/08/2024 1:30 PM EDT Office Visit Cardiology, [facility] [address] [place] [address] Rashaun Felix MD [address] [place] [address] 08/18/2024 1:40 PM EDT Office Visit Family Practice [facility] [address] [place] [address] Rosy Cummins PA-C [address] [place] [address] 09/17/2024 11:30 AM EDT Office Visit Cardiology, [facility] [address] [place] [address] Rashaun Felix MD [address] [place] [address] Scheduled Procedures Name Priority Associated Diagnoses Date/Ti [...] this encounter Medical Devices Implanted Type Area Woodwinds Teacher Device Identifier Shelf Expiration Date Model / Serial / Lot Lens Intraoc 11.5 - [id number] - [id number] Implanted:Qty: 1 on 12/18/2019 by Azam Boo MD at OR [facility] Left: Eye BAUSCH & LOMB 10/06/2021 [id number] / [id number] / Lens Intraoc 11.5 - [id number] - [id number] Implanted:Qty: 1 on 12/31/2019 by Azam Boo MD at OR [facility] Right: Eye BAUSCH & LOMB 07/06/2024 [id number] / [id number] / [id number] documented as of this encounter Advance Directives [...] and were consensually agreed upon. Care Teams Sample Tailor Relationship Specialty Start Date End Date Rosy Cummins PA-C [address] [place] [address] PCP - General Physician Senior Ux Developer 04/30/24 documented as of this encounter
--- OUTSIDE RECORDS SUMMARY | 2024-06-29 10:58 | External Medical Summary | Summary of Care ---
Author Name Unknown Organization [facility] Address [address] [facility] [place] [address] Phone [phone] Care Team Providers Care Seo Associate Name Role Phone Rosy Cummins PA-C Primary Care Provider +1 [phone] Encounter Details Date Type Department Care Team (Late st Contact Info) Description 05/22/2024 Population Health External Data Unspecified Department Allergies Active Allergy Reactions Criticality Noted Date Comments Azelastine Nausea/vomiting 12/29/2023 Cetirizine Other (Please comment) 11/22/2021 headache Latex Rash 10/14/2021 Metoprolol Unknown 10/14/2021 Sulfa Antibiotics 08/13/2002 bactrim only-itching afater 1 week Tartaric Acid Unknown 10/14/2021 Valacyclovir 11/23/2022 Renal calculi documented as of this encounter (statuses as of 05/23/2024) Medications Multiple Vitamins-Minerals (DAILY MULTIVITAMIN) CAPS Take [...] Tablet by mouth in the morning. Active hydroCHLOROthiazide 25 MG Oral Tablet (Hydrodiuril)Indica tions:PAF (paroxysmal atrial fibrillation) (HCC) Take 1 Tablet by mouth in the morning. 90 Tablet 3 06/15/19 23 Active Additional Information Patient taking differently: 12.5 mgOral Daily(AM), Reported on 04/30/2024 Clobetasol Propionate 0.05 % External Cream (Temovate) Apply topically to affected area daily. To affected area 15 g 1 08/26/19 23 Active Magnesium 400 MG Oral Tablet Take by mouth. At bedtime Active busPIRone HCl 15 MG Oral Tablet (Buspar)Indications :Stress Oneh pili to one whole tab by mouth up to three times a day as needed for nerves 20 Tablet 04/08/20 23 Active Additional Information Patient not taking.Reported on 04/30/2024 dilTIAZem HCl ER Coated Beads 120 MG [...] 4 9:05 AM EDT 11/23/19 24 Active Ondansetron HCl 4 MG Oral Tablet (Zofran)Indications :Nausea Take 1 Tablet by mouth every 8 hours as needed for Nausea. 20 Tablet 12/07/19 24 Active Sodium Hyaluronate 60 MG/3ML Intra-articular [...] MOUTH EVERYDAY AT BEDTIME 90 Tablet 1 03/01/20 24 Active Nitroglycerin 0.4 MG Sublingual [...] 4 3:40 PM EST 03/14/20 24 Active Amoxicillin-Pot Clavulanate 875-125 MG Oral Tablet (Augmentin)Indicati ons:Acute cystitis without hematuria Take 1 Tablet by mouth in the morning and 1 Tablet before bedtime. 20 Tablet 03/14/20 24 Active Fluconazole 150 MG Oral Tablet (Diflucan)Indicatio ns:Acute cystitis without hematuria Take one tab every 3 days while on antibiotic 4 Tablet 03/14/20 24 Active Albuterol Sulfate HFA 108 (90 Base) MCG/ACT Inhalation Aerosol Solution Inhale 2 Puffs by mouth every 6 hours as needed for stomach irritation. 20.1 g 11/28/19 24 Active Azithromycin 250 MG Oral Tablet (Zithromax Z-Hal) Take two tablets by mouth on first day, then 1 tablet daily until gone 6 Tablet 04/19/20 24 Active Ondansetron HCl 4 MG Oral [...] Capsule 2 5 6:08 PM EST 05/09/19 Active Gabapentin 100 MG Oral Capsule (Neurontin)Indicati ons:Lumbar radicular pain Take 2 Capsules by mouth in the morning and 2 Capsules at noon and 2 Capsules before bedtime. 540 Capsule 05/22/19 25 025 Active Hospital, Clinic, or Other Facility Administered Medication Ordered Dose Route Frequency Start Date End Date Status Vitamin B-12 (Cyanocobalamin) inj 1,000 mcgIndications:B12 deficiency 1000 mcg IM [id number] 01/27/2024 12/28/2024 Active documented as of this encounter (statuses as of 05/23/2024) Active Problems Problem Noted Date Diagnosed Date Endometrial cancer 03/28/2024 Cancer Staging:Clinical stage from 04/30/2024:FIGO Stage IA(cT0, cN0, cM0) - Signed by Shekhar Belle MD on 05/05/2024 Chronic obstructive pulmonary disease 01/27/2024 Old [place] (myocardial infarction) 01/27/2024 Prediabetes 12/19/2023 Overview: Per [...] as of this encounter (statuses as of 05/23/2024) Resolved Problems Problem Noted Date Diagnosed Date [...] as of this encounter (statuses as of 05/23/2024) Immunizations Name Administration Dates Next Due Pneumococcal Conjugate Vacci ne, 20-valent ([id number]) 04/08/2023 Pneumococcal Polysaccharide PPV23 (Pneumovax) 03/20/2016 Seasonal [...] 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, 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 Not on file documented as of this encounter Plan of Treatment Upcoming Encounters Date Type Department Care Team (Late st Contact Info) Description 06/04/2024 10:30 AM EST Office Visit Cardiology, [facility] [address] [place] [address] Rashaun Felix MD [address] [place] [address] 06/14/2024 11:00 AM EST Office Visit Gynecology/Oncology, [place] [address] [place] [address] Дмитрий Love PA-C [address] [place] [phone] 07/31/2024 11:00 AM EDT Office Visit [facility]ventional [facility] Ctr [facility] [address], [place] [phone] Erica Kaufman CRNP [address] [place] [address] 08/01/2024 10:15 AM EDT Office Visit Orthopaedics [facility] [address] [place] [phone] Salinas Levine PA-C [address] [place] [address] 09/17/2024 11:30 AM EDT Office Visit Cardiology, [facility] [address] [place] [address] Rashaun Felix MD [address] [place] [address] Scheduled Procedures Name Priority Associated Diagnoses Date/Ti [...] COPD 04/30/2025 04/30/2024 Lipid Panel 01/15/2028 01/14/2023, 0510/2021, 11/05/2020, Additional history exists DTap/Tdap Vaccines (5 [...] this encounter Medical Devices Implanted Type Area Drop Shipment Clerk Device Identifier Shelf Expiration Date Model / Serial / Lot Lens Intraoc 11.5 - [id number] - [id number] Implanted:Qty: 1 on 12/18/2019 by Azam Boo MD at OR [facility] Left: Eye BAUSCH & LOMB 10/06/2021 [id number] / [id number] / Lens Intraoc 11.5 - [id number] - [id number] Implanted:Qty: 1 on 12/31/2019 by Azam Boo MD at OR [facility] Right: Eye BAUSCH & LOMB 07/06/2024 [id number] / [id number] / [id number] documented as of this encounter Advance Directives [...] and were consensually agreed upon. Care Teams Seo Associate Relationship Specialty Start Date End Date Rosy Cummins PA-C [address] [place] [address] PCP - General Physician Internet Webmaster 04/30/24 documented as of this encounter
--- OUTSIDE RECORDS SUMMARY | 2024-06-29 10:58 | External Medical Summary | Summary of Care ---
Author Name Unknown Organization [facility] Address [address] [facility] [place] [address] Phone [phone] Care Team Providers Care Diesel Locomotive Firer Name Role Phone Rosy Cummins PA-C Primary Care Provider [phone] [phone] Reason for Visit * Reason Onset Date Comments Advice 02/28/2024 Encounter Details Date Type Department Care Team (Late st Contact Info) Description 02/28/2024 Telephone Gynecology/Obstetrics [facility] [address] [facility] [place] [address] Services, Scheduling [address] [place] [address] Advice Allergies Active Allergy Reactions Criticality Noted Date Comments Azelastine Nausea/vomiting 12/29/2023 Cetirizine Other (Please comment) 11/22/2021 headache Latex Rash 10/14/2021 Metoprolol Unknown 10/14/2021 Sulfa Antibiotics 08/13/2002 bactrim only-itching afater 1 week Tartaric Acid Unknown 10/14/2021 Valacyclovir 11/23/2022 Renal calculi documented as of this encounter (statuses as of 05/29/2024) Medications Multiple Vitamins-Minerals (DAILY MULTIVITAMIN) CAPS Take [...] differently: 12.5 mgOral Daily(AM), Reported on 04/30/2024 Magnesium 400 MG Oral Tablet Take by mouth. At bedtime Active busPIRone HCl 15 MG Oral Tablet (Buspar)Indications :Stress Oneh care home to one whole tab by mouth up [...] Tablet 1 4 6:15 PM EDT 02/10/20 Active Lisinopril 10 MG Oral Tablet (Prinivil)Indicatio ns:Essential hypertension with goal blood pressure less than 140/90 Take 2 Tablets by mouth in the morning. 180 Tablet 3 4 6:37 PM EDT 02/20/20 Active Hospital, Clinic, or Other Facility Administered Medication Ordered Dose Route Frequency Start Date End Date Status Vitamin B-12 (Cyanocobalamin) inj 1,000 mcgIndications:B12 deficiency 1000 mcg IM [id number] 01/27/2024 12/28/2024 Active documented as of this encounter (statuses as of 05/29/2024) Active Problems Problem Noted Date Diagnosed Date Endometrial cancer 03/28/2024 Cancer Staging:Clinical stage from 04/30/2024:FIGO Stage IA(cT0, cN0, cM0) - Signed by Shekhar Belle MD on 05/05/2024 Chronic obstructive pulmonary disease 01/27/2024 Old [place] (myocardial infarction) 01/27/2024 Prediabetes 12/19/2023 Overview: Per [...] as of this encounter (statuses as of 05/29/2024) Resolved Problems Problem Noted Date Diagnosed Date [...] as of this encounter (statuses as of 05/29/2024) Immunizations Name Administration Dates Next Due Pneumococcal Conjugate Vacci ne, 20-valent ([id number]) 04/08/2023 Pneumococcal Polysaccharide PPV23 (Pneumovax) 03/20/2016 Seasonal [...] 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 Pt verbalized understanding. * Telephone Encounter - Talia Wiggins OSA - 02/28/2024 2:42 PM EDT Pt is stating she was told to take Covid test prior to surgery and pt is relaying currently on z-pack for sinus infection. pt is requesting if she could continue to take Advil dual plus Tylenol and ibuprofen for back issues ongoing or if she would have to stop these prior to surgery. documented in this encounter Plan of Treatment Upcoming Encounters Date Type Department Care Team (Late st Contact Info) Description 05/31/2024 10:20 AM EST Office Visit [facility] [address] [place] [phone] Rosy Cummins PA-C [address] [place] [address] 06/06/2024 3:00 PM EST Imaging Vascular Lab, [facility] 2nd [facility] [address] [facility] [place] [address] 06/14/2024 11:00 AM EST Office Visit Gynecology/Oncology, [address] [place] [phone] Дмитрий Love PA-C [address] [place] [address] 07/31/2024 11:00 AM EDT Office Visit [facility] [place] [place] [address] [place] [address] Erica Kaufman CRNP 16 [place] [address] 08/01/2024 10:15 AM EDT Office Visit Orthopaedics [facility] [address] [place] [phone] Salinas Levine PA-C [address] [place] [phone] 08/08/2024 1:30 PM EDT Office Visit Cardiology, [facility] [address] [place] [address] Rashaun Felix MD [address] [place] [address] 08/18/2024 1:40 PM EDT Office Visit Family Practice [facility] [address] [place] [address] Rosy Cummins PA-C [address] [facility] [place] [address] 09/17/2024 11:30 AM EDT Office Visit Cardiology, [facility] [address] [place] [address] Rashaun Felix MD [address] [place] [address] Scheduled Procedures Name Priority Associated Diagnoses Date/Ti [...] this encounter Medical Devices Implanted Type Area Cardiology Nurse Device Identifier Shelf Expiration Date Model / Serial / Lot Lens Intraoc 11.5 - [id number] - [id number] Implanted:Qty: 1 on 12/18/2019 by Azam Boo MD at OR [facility] Left: Eye BAUSCH & LOMB 10/06/2021 [id number] / [id number] / Lens Intraoc 11.5 - [id number] - [id number] Implanted:Qty: 1 on 12/31/2019 by Azam Boo MD at OR [facility] Right: Eye BAUSCH & LOMB 07/06/2024 [id number] / [id number] / [id number] documented as of this encounter Advance Directives [...] and were consensually agreed upon. Care Teams Diesel Locomotive Firer Relationship Specialty Start Date End Date Rosy Cummins PA-C [address] [place] [address] PCP - General Physician Workforce Management Coordinator 04/30/24 documented as of this encounter
--- OUTSIDE RECORDS SUMMARY | 2024-06-29 10:58 | External Medical Summary | Summary of Care ---
Author Name Unknown Organization [facility] Address [address] [facility] [place] [address] Phone [phone] Care Team Providers Care Review Scheduling Coordinator Name Role Phone Rosy Cummins PA-C Primary Care Provider [phone] [phone] Reason for Visit * Reason Onset Date Comments Appointment 05/24/2024 Encounter Details Date Type Department Care Team (Late st Contact Info) Description 05/24/[address] [facility] [place] [address] [place] [phone] Rosy Cummins PA-C [address] [place] [phone] Appointment Allergies Active Allergy Reactions Criticality Noted Date Comments Azelastine Nausea/vomiting 12/29/2023 Cetirizine Other (Please comment) 11/22/2021 headache Latex Rash 10/14/2021 Metoprolol Unknown 10/14/2021 Sulfa Antibiotics 08/13/2002 bactrim only-itching afater 1 week Tartaric Acid Unknown 10/14/2021 Valacyclovir 11/23/2022 Renal calculi documented as of this encounter (statuses as of 05/24/2024) Medications Multiple Vitamins-Minerals (DAILY MULTIVITAMIN) CAPS Take [...] 15 MG Oral Tablet (Buspar)Indications :Stress Oneh halfway to one whole tab by mouth up [...] inj 1,000 mcgIndications:B12 deficiency 1000 mcg IM [id number] 01/27/2024 12/28/2024 Active documented as of this encounter (statuses as of 05/24/2024) Active Problems Problem Noted Date Diagnosed Date Endometrial cancer 03/28/2024 Cancer Staging:Clinical stage from 04/30/2024:FIGO Stage IA(cT0, cN0, cM0) - Signed by Shekhar Belle MD on 05/05/2024 Chronic obstructive pulmonary disease 01/27/2024 Old [place] (myocardial infarction) 01/27/2024 Prediabetes 12/19/2023 Overview: Per [...] as of this encounter (statuses as of 05/24/2024) Resolved Problems Problem Noted Date Diagnosed Date [...] as of this encounter (statuses as of 05/24/2024) Immunizations Name Administration Dates Next Due Pneumococcal Conjugate Vacci ne, 20-valent ([id number]) 04/08/2023 Pneumococcal Polysaccharide PPV23 (Pneumovax) 03/20/2016 Seasonal [...] 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 05/24/2024 * Telephone Encounter - Fritz Jackson OSA - 05/24/2024 10:05 AM EST No Appointments Available What Visit Type is needed? Acute Patient declined available appointment(s)?: Yes, explain: With other providers Were other providers in the clinic offered? Yes and she refused. Sinus infection. documented in this encounter Plan of Treatment Upcoming Encounters Date Type Department Care Team (Late st Contact Info) Description 05/29/2024 11:30 AM EST Imaging Vascular Lab, [facility] 2nd Floor, [place] [address] [facility] [place] [address] 06/04/2024 10:30 AM EST Office Visit Cardiology, [facility] [address] [facility] [place] [address] Rashaun Felix MD 132 [facility] [place] [address] 06/14/2024 11:00 AM EST Office Visit Gynecology/Oncology, [place] [address] [place] [address] Дмитрий Love PA-C [address] [place] [address] 07/31/2024 11:00 AM EDT Office Visit [facility] 16 [place] [address] Erica Kaufman, MAJOR 16 [place] [address] 08/01/2024 10:15 AM EDT Office Visit Orthopaedics [facility] [address] [place] [phone] Salinas Levine PA-C 132 [facility] [place] [address] 08/18/2024 1:40 PM EDT Office Visit Family Practice [facility] 132 [facility] [place] [address] Rosy Cummins PA-C [facility] [place] [address] 09/17/2024 11:30 AM EDT Office Visit [facility]iology, [facility] [place] [address] Rahsaun Felix MD [address] [place] [address] Scheduled Procedures Name Priority Associated Diagnoses Date/Ti [...] this encounter Medical Devices Implanted Type Area Navy Seal Device Identifier Shelf Expiration Date Model / Serial / Lot Lens Intraoc 11.5 - [id number] - [id number] Implanted:Qty: 1 on 12/18/2019 by Azam Boo MD at OR [facility] Left: Eye BAUSCH & LOMB 10/06/2021 [id number] / [id number] / Lens Intraoc 11.5 - [id number] - [id number] Implanted:Qty: 1 on 12/31/2019 by Azam Boo MD at OR [facility] Right: Eye BAUSCH & LOMB 07/06/2024 [id number] / [id number] / [id number] documented as of this encounter Advance Directives [...] and were consensually agreed upon. Care Teams Review Scheduling Coordinator Relationship Specialty Start Date End Date Rosy Cummins PA-C [address] [place] [phone] PCP - General Physician Investment Sales Assistant 04/30/24 documented as of this encounter
--- OUTSIDE RECORDS SUMMARY | 2024-06-29 10:58 | External Medical Summary | Summary of Care ---
Author Name Unknown Organization [facility] Address [address] [facility] [place] [address] Phone [phone] Care Team Providers Care Salon Customer Experience Specialist Name Role Phone Rosy Jansen PA-C Primary Care Provider [phone] [phone] Reason for Visit * Reason Onset Date Comments Medication Refill 05/27/2024 Encounter Details Date Type Department Care Team (Late st Contact Info) Description 05/27/2024 Refill [facility] [place] [address] [place] [phone] Rsoy Jansen PA-C [address] [place] [address] Allergies Active Allergy Reactions Criticality Noted Date Comments Azelastine Nausea/vomiting 12/29/2023 Cetirizine Other (Please comment) 11/22/2021 headache Latex Rash 10/14/2021 Metoprolol Unknown 10/14/2021 Sulfa Antibiotics 08/13/2002 bactrim only-itching afater 1 week Tartaric Acid Unknown 10/14/2021 Valacyclovir 11/23/2022 Renal calculi documented as of this encounter (statuses as of 05/28/2024) Medications Multiple Vitamins-Minerals (DAILY MULTIVITAMIN) CAPS Take [...] Tablet by mouth in the morning. Active hydroCHLOROthiazid e 25 MG Oral Tablet (Hydrodiuril)Indic ations:PAF (paroxysmal atrial fibrillation) (HCC) Take 1 Tablet by mouth in the morning. 90 Tablet 3 06/15/19 23 Active Additional Information Patient taking differently: 12.5 mgOral Daily(AM), Reported on 04/30/2024 Magnesium 400 MG Oral Tablet Take by mouth. At bedtime Active busPIRone HCl 15 MG Oral Tablet (Buspar)Indication s:Stress Oneh pili to one whole tab by [...] Active Ondansetron HCl 4 MG Oral Tablet (Zofran)Indication [...] Active Amoxicillin-Pot Clavulanate 875-125 MG Oral Tablet (Augmentin)Indicat [...] daily. To affected area 15 g 1 05/28/19 25 Active Clobetasol Propionate 0.05 % External Cream (Temovate) Apply topically to affected area daily. To affected area 15 g 1 08/26/19 23 025 Discontin ued(Refil l) Hospital, Clinic, or Other Facility Administered Medication Ordered Dose Route Frequency Start Date End Date Status Vitamin B-12 (Cyanocobalamin) inj 1,000 mcgIndications:B12 deficiency 1000 mcg IM [id number] 01/27/2024 12/28/2024 Active documented as of this encounter (statuses as of 05/28/2024) Active Problems Problem Noted Date Diagnosed Date Endometrial cancer 03/28/2024 Cancer Staging:Clinical stage from 04/30/2024:FIGO Stage IA(cT0, cN0, cM0) - Signed by Shekhar Belle MD on 05/05/2024 Chronic obstructive pulmonary disease 01/27/2024 Old [place] (myocardial infarction) 01/27/2024 Prediabetes 12/19/2023 Overview: Per [...] as of this encounter (statuses as of 05/28/2024) Resolved Problems Problem Noted Date Diagnosed Date [...] as of this encounter (statuses as of 05/28/2024) Immunizations Name Administration Dates Next Due Pneumococcal Conjugate Vacci ne, 20-valent ([id number]) 04/08/2023 Pneumococcal Polysaccharide PPV23 (Pneumovax) 03/20/2016 Seasonal [...] 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 To affected area Authorizing Provider: ROSY JANSEN * Telephone Encounter - Abbie Johnson LPN - 05/28/2024 7:58 AM ESTPending Prescriptions: Disp Refills Clobetasol Propionate 0.05 % External Crea*15 g 1 Sig: Apply topically to affected area daily. To affected area * Telephone Encounter - Kimberley Bullock - 05/27/2024 8:15 PM ESTPending Prescriptions: Disp Refills Clobetasol Propionate 0.05 % External Crea*15 g 1 Sig: Apply topically to affected area daily. To affected area documented in this encounter Plan of Treatment Upcoming Encounters Date Type Department Care Team (Late st Contact Info) Description 05/29/2024 11:30 AM EST Imaging Vascular Lab, [facility] 2nd [facility] 132 [facility] [place] [address] 05/31/2024 10:20 AM EST [facility] [place] [phone] Rosy Jansen PA-C [address] [facility] [address] 06/04/2024 10:30 AM EST Office Visit Cardiology, [facility] [address] [place] [address] Rashaun Felix MD [address] [place] [address] 06/14/2024 11:00 AM EST Office Visit Gynecology/Oncology, [place] [address] [place] [address] Дмитрий Love PA-C [address] [place] [address] 07/31/2024 11:00 AM EDT [facility] [address] [place] [address] Erica Kaufman CRNP [address] [place] [address] 08/01/2024 10:15 AM EDT Office Visit Orthopaedics [facility] [address] [facility] [place] [phone] Salinas Levine PA-C [address] [facility] [place] [address] 08/18/2024 1:40 PM EDT Office Visit Family Practice [facility] 132 [facility] [place] [address] Rosy Jansen PA-C [address] [facility] [place] [address] 09/17/2024 11:30 AM EDT Office Visit Cardiology, [facility] [address] [place] [address] Rashaun Felix MD [address] [place] [address] Scheduled Procedures Name Priority Associated Diagnoses Date/Ti me COLONOSCOPY FLEXIBLE PROXIMA L DIAGNOSTIC Recall Encounter for screening colonoscopy [facility] Maintenance Due Date Last Done Comments Cologuard [...] this encounter Medical Devices Implanted Type Area Cotton Broker Device Identifier Shelf Expiration Date Model / Serial / Lot Lens Intraoc 11.5 - [id number] - [id number] Implanted:Qty: 1 on 12/18/2019 by Azam Boo MD at OR [facility] Left: Eye BAUSCH & LOMB 10/06/2021 [id number] / [id number] / Lens Intraoc 11.5 - [id number] - [id number] Implanted:Qty: 1 on 12/31/2019 by Azam Boo MD at OR [facility] Right: Eye BAUSCH & LOMB 07/06/2024 [id number] / [id number] / [id number] documented as of this encounter Advance Directives [...] and were consensually agreed upon. Care Teams Salon Customer Experience Specialist Relationship Specialty Start Date End Date Rosy Jansen PA-C [facility] [place] [address] PCP - General Physician Powersaw Supervisor 04/30/24 documented as of this encounter
--- OUTSIDE RECORDS SUMMARY | 2024-06-29 10:58 | External Medical Summary | Summary of Care ---
Author Name Unknown Organization [facility] Address [address] [facility] [place] [address] Phone [phone] Care Team Providers Care Water Softener Installer Name Role Phone Rosy Cummins PA-C Primary Care Provider [phone] [phone] Reason for Visit * Reason Onset Date Comments Appointment 05/24/2024 Encounter Details Date Type Department Care Team (Late st Contact Info) Description [facility] [address] [place] [phone] Rosy Cummins PA-C [address] [place] [place] [phone] Appointment Allergies Active Allergy Reactions Criticality Noted [...] 15 MG Oral Tablet (Buspar)Indications :Stress Oneh usp to one whole tab by mouth up [...] inj 1,000 mcgIndications:B12 deficiency 1000 mcg IM [id number] 01/27/2024 12/28/2024 Active documented as of this encounter (statuses as of 05/24/2024) Active Problems Problem Noted Date Diagnosed Date Endometrial cancer 03/28/2024 Cancer Staging:Clinical stage from 04/30/2024:FIGO Stage IA(cT0, cN0, cM0) - Signed by Shekhar Belle MD on 05/05/2024 Chronic obstructive pulmonary disease 01/27/2024 Old PA (myocardial infarction) 01/27/2024 Prediabetes 12/19/2023 Overview: Per [...] 05/24/2024) Immunizations Name Administration Dates Next Due Hepatitis B, 20+ yrs 11/23/2000,05/20/2000,02/2310/18/2000 Influenza, Whole Virus 03/10/1999 PPD 10/31/2001,03/24/1999,01/19/1994 Pneumococcal Conjugate Vacci ne, 20-valent ([id number]) 04/08/2023 Pneumococcal Polysaccharide PPV23 (Pneumovax) 03/20/2016,02/24/2000 Seasonal Influenza Vac., MDV , IM, 0.5 mL (Fluzone) 05/03/2001,05/20/2000 Seasonal Influenza Virus Vac cine, Unspecified Formulation 02/09/2012,02/16/2011,05/03/2001,05/09,03/10/1999 TB Suzanne Test 01/28/1992,02/20/1990 TD - Tetanus/Diptheria (ADULT) 08/07/1997 TDAP (age 10 and older)(Boostrix) 10/14/2021,03/2012,04/08/2010 TDAP, [...] 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 * Telephone Encounter - Monse Resendez OSA [...] AM EST Imaging Vascular Lab, [facility] 2nd Floor, [place] [address] [facility] [place] [address] 06/04/2024 10:30 AM EST Office Visit Cardiology, [facility] [address] [facility] [place] [address] Rashaun Felix MD [address] [facility] [place] [address] 06/14/2024 11:00 AM EST Office Visit Gynecology/Oncology, [place] [address] [place] [address] Дмитрий Love PA-C [address] [place] [phone] 07/31/2024 11:00 AM EDT Office Visit Interventional Pain Ctr Derrick Escobar [address] [place] [address] Erica Kaufman CRNP 16 [place] [address] 08/01/2024 10:15 AM EDT Office Visit Orthopaedics [facility] [address] [place] [phone] Salinas Levine PA-C [address] [place] [address] 08/18/2024 1:40 PM EDT Office Visit Family Practice [facility] [address] [place] [address] Rosy Cummins PA-C [address] [place] [address] 09/17/2024 11:30 AM EDT Office Visit Cardiology, [facility] [address] [place] [address] Rashaun Felix MD [address] [place] [address] Scheduled Procedures Name Priority Associated Diagnoses Date/Ti [...] this encounter Medical Devices Implanted Type Area Health Informatics Instructor Device Identifier Shelf Expiration Date Model / Serial / Lot Lens Intraoc 11.5 - [id number] - [id number] Implanted:Qty: 1 on 12/18/2019 by Azam Boo MD at OR [facility] Left: Eye BAUSCH & LOMB 10/06/2021 [id number] / [id number] / Lens Intraoc 11.5 - [id number] - [id number] Implanted:Qty: 1 on 12/31/2019 by Azam Boo MD at OR [facility] Right: Eye BAUSCH & LOMB 07/06/2024 [id number] / [id number] / [id number] documented as of this encounter Advance Directives [...] and were consensually agreed upon. Care Teams Water Softener Installer Relationship Specialty Start Date End Date Rosy Cummins PA-C [address] [place] [address] PCP - General Physician Scout 04/30/24 documented as of this encounter
--- OUTSIDE RECORDS SUMMARY | 2024-06-29 10:58 | External Medical Summary | Summary of Care ---
Author Name Unknown Organization [facility] Address [address] [facility] [place] [address] Phone [phone] Care Team Providers Care Marketing And Promotions Manager Name Role Phone Rosy Cummins PA-C Primary Care Provider [phone] [phone] Reason for Visit * Reason Comments Medication Refill Encounter Details Date Type Department Care Team (Late st Contact Info) Description 05/21/2024 Refill [facility] [address] [place] [address] Caryl Mckeon MD 16 [place] [address] Lumbar radicular pain Allergies Active Allergy Reactions Criticality Noted Date Comments Azelastine Nausea/vomiting 12/29/2023 Cetirizine Other (Please comment) 11/22/2021 headache Latex Rash 10/14/2021 Metoprolol Unknown 10/14/2021 Sulfa Antibiotics 08/13/2002 bactrim only-itching afater 1 week Tartaric Acid Unknown 10/14/2021 Valacyclovir 11/23/2022 Renal calculi documented as of this encounter (statuses as of 05/22/2024) Medications Multiple Vitamins-Minerals (DAILY MULTIVITAMIN) CAPS Take [...] 15 MG Oral Tablet (Buspar)Indication s:Stress Oneh senior living to one whole tab by mouth up to three times a day as needed for nerves 20 Tablet 04/08/20 Active Additional Information Patient not taking.Reported on [...] bedtime. 540 Capsule 05/22/19 25 025 Active Gabapentin 100 MG Oral Capsule (Neurontin)Indicat ions:Lumbar radicular pain Take 2 Capsules by mouth in the morning and 2 Capsules at noon and 2 Capsules before bedtime. 540 Capsule 4 11:57 AM EST 04/30/20 24 025 Discontin ued(Refil l) Hospital, Clinic, or Other Facility Administered Medication Ordered Dose Route Frequency Start Date End Date Status Vitamin B-12 (Cyanocobalamin) inj 1,000 mcgIndications:B12 deficiency 1000 mcg IM [id number] 01/27/2024 12/28/2024 Active documented as of this encounter (statuses as of 05/22/2024) Active Problems Problem Noted Date Diagnosed Date [...] as of this encounter (statuses as of 05/22/2024) Resolved Problems Problem Noted Date Diagnosed Date [...] as of this encounter (statuses as of 05/22/2024) Immunizations Name Administration Dates Next Due Pneumococcal Conjugate Vacci ne, 20-valent ([id number]) 04/08/2023 Pneumococcal Polysaccharide PPV23 (Pneumovax) 03/20/2016 Seasonal [...] 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 Authorizing Provider: CARYL MCKEON * Telephone Encounter - Cyn Samuels OSA - 05/22/2024 6:41 AM EST Pending Prescriptions: Disp Refills Gabapentin 100 MG Oral Capsule (Neurontin) 540 Ca*0 Sig: Take 2Capsules by mouth in the morning and 2 Capsules at noon and 2 Capsules before bedtime. documented in this encounter Plan of Treatment Upcoming Encounters Date Type Department Care Team (Late st Contact Info) Description 06/04/2024 10:30 AM EST Office Visit Cardiology, [facility] [address] [place] [address] Rashaun Felix MD 132 [facility] [place] [address] 06/14/2024 11:00 AM EST Office Visit Gynecology/Oncology, [place] [address] [place] [address] Дмитрий Love PA-C [address] [place] [phone] 07/31/2024 11:00 AM EDT Office Visit Interventional Pain Ctr [facility] [address] [place], [place] [phone] Erica Kaufman CRNP 16 [place] [address] 08/01/2024 10:15 AM EDT Office Visit Orthopaedics [facility] [place] [phone] Salinas Levine PA-C [address] [place] [address] 09/17/2024 11:30 AM EDT Office Visit Cardiology, [facility] [address] [place] [address] Rashaun Felix MD [address] [place] [address] Scheduled Procedures Name Priority Associated Diagnoses Date/Ti [...] Depression Screening 08/03/2024 08/04/2023 Mammogram 11/08/2024 11/09/2023, 06, 06/27/2015, Additional history exists Albumin/Creatinine Ratio 03/17/2025 [...] this encounter Medical Devices Implanted Type Area Jacquard Twine Polisher Operator Device Identifier Shelf Expiration Date Model / Serial / Lot Lens Intraoc 11.5 - [id number] - [id number] Implanted:Qty: 1 on 12/18/2019 by Azam Boo MD at OR [facility] Left: Eye BAUSCH & LOMB 10/06/2021 [id number] / [id number] / Lens Intraoc 11.5 - [id number] - [id number] Implanted:Qty: 1 on 12/31/2019 by Azam Boo MD at OR [facility] Right: Eye BAUSCH & LOMB 07/06/2024 [id number] / [id number] / [id number] documented as of this encounter Visit Diagnoses Diagnosis Lumbar radicular pain Thoracic or lumbosacral neuritis or radiculitis, unspecified documented in this encounter Advance Directives * [...] and were consensually agreed upon. Care Teams Marketing And Promotions Manager Relationship Specialty Start Date End Date Rosy Cummins PA-C [address] [place] [address] PCP - General Physician Supervisor Production Managing 04/30/24 documented as of this encounter
--- OUTSIDE RECORDS SUMMARY | 2024-06-29 10:58 | External Medical Summary | Summary of Care ---
Author Name Unknown Organization [facility] Address [address] [facility] [place] [address] Phone [phone] Care Team Providers Care Piano Tuner Name Role Phone Rosy Cummins PA-C Primary Care Provider [phone] [phone] Encounter Details Date Type Department Care Team (Late st Contact Info) Description 05/29/2024 Population Health External Data Unspecified Department Allergies [...] 15 MG Oral Tablet (Buspar)Indications :Stress Oneh jail to one whole tab by mouth up [...] 24 Active Lisinopril 10 MG Oral Tablet (Prinivil)Geovanitio ns:Essential hypertension with goal blood pressure less [...] 24 Active Fluconazole 150 MG Oral Tablet (Diflucan)Jamilaho ns:Acute cystitis without hematuria Take one tab [...] area 15 g 1 05/28/19 25 Active Hospital, Clinic, or Other Facility Administered Medication Ordered Dose Route Frequency Start Date End Date Status Vitamin B-12 (Cyanocobalamin) inj 1,000 mcgIndications:B12 deficiency 1000 mcg IM [id number] 01/27/2024 12/28/2024 Active documented as of this [...] Next Due Pneumococcal Conjugate Vacci ne, 20-valent ([id number]) 04/08/2023 Pneumococcal Polysaccharide PPV23 (Pneumovax) 03/20/2016 Seasonal [...] 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, 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 Not on file documented as of this encounter Plan of Treatment Upcoming Encounters Date Type Department Care Team (Late st Contact Info) Description 05/31/2024 10:20 AM EST Office Visit Family [facility] [address] [place] [phone] Rosy Cummins PA-C 226 [facility] [place] [address] 06/06/2024 3:00 PM EST Imaging Vascular Lab, [facility] 2nd [facility], [address] [place] [address] 06/14/2024 11:00 AM EST Office Visit Gynecology/Oncology, [place] [address] [facility] [place] [address] Дмитрий Love PA-C [address] [facility] [place] [address] 07/31/2024 11:00 AM EDT Office Visit Interventional Pain Ctr [place], [place] [address] [place] [address] Erica Kaufman CRNP [address] [place] [address] 08/01/2024 10:15 AM EDT Office Visit Orthopaedics [facility] [address] [place] [phone] Salinas Levine PA-C [address] [place] [address] 08/08/2024 1:30 PM EDT Office Visit Cardiology, [facility] [place] [address] Rashaun Felix MD [address] [place] [address] 08/18/2024 1:40 PM EDT Office Visit Family Practice [facility] [address] [place] [address] Rosy Cummins PA-C [facility] [address] 09/17/2024 11:30 AM EDT Office Visit Cardiology, [facility] 132 [facility] [place] [address] Rashaun Felix MD [address] [facility] [place] [address] Scheduled Procedures Name Priority Associated Diagnoses Date/Ti [...] this encounter Medical Devices Implanted Type Area Small Business Representative Device Identifier Shelf Expiration Date Model / Serial / Lot Lens Intraoc 11.5 - [id number] - [id number] Implanted:Qty: 1 on 12/18/2019 by Azam Boo MD at OR [facility] Left: Eye BAUSCH & LOMB 10/06/2021 [id number] / [id number] / Lens Intraoc 11.5 - [id number] - [id number] Implanted:Qty: 1 on 12/31/2019 by Azam Boo MD at OR [facility] Right: Eye BAUSCH & LOMB 07/06/2024 [id number] / [id number] / [id number] documented as of this encounter Advance Directives [...] and were consensually agreed upon. Care Teams Piano Tuner Relationship Specialty Start Date End Date Rosy Cummins PA-C [address] [place] [address] PCP - General Physician Area Mechanic 04/30/24 documented as of this encounter
--- OUTSIDE RECORDS SUMMARY | 2024-06-29 10:59 | External Medical Summary | Summary of Care ---
Author Name Unknown Organization [facility] Address [address] [facility] [place] [address] Phone [phone] Care Team Providers Care Debone Supervisor Name Role Phone Rosy Jansen PA-C Primary Care Provider [phone] [phone] Reason for Visit * Reason Comments Medication Refill Encounter Details Date Type Department Care Team (Late st Contact Info) Description 05/07/2024 Refill [facility] Radha Ornelas [address] [place] [phone] Rosy Jansen PA-C [address] [place] [phone] Allergies Active Allergy Reactions Criticality Noted Date Comments Azelastine Nausea/vomiting 12/29/2023 Cetirizine Other (Please comment) 11/22/2021 headache Latex Rash 10/14/2021 Metoprolol Unknown 10/14/2021 Sulfa Antibiotics 08/13/2002 bactrim only-itching afater 1 week Tartaric Acid Unknown 10/14/2021 Valacyclovir 11/23/2022 Renal calculi documented as of this encounter (statuses as of 05/09/2024) Medications Multiple Vitamins-Minerals (DAILY MULTIVITAMIN) CAPS Take [...] 15 MG Oral Tablet (Buspar)Indication s:Stress Oneh skilled nursing to one whole tab by mouth up [...] until gone 6 Tablet 04/19/20 24 Active Gabapentin 100 MG Oral Capsule (Neurontin)Indicat ions:Lumbar radicular pain Take 2 Capsules by mouth in the morning and 2 Capsules at noon and 2 Capsules before bedtime. 540 Capsule 4 11:57 AM EST 04/30/20 24 025 Active Ondansetron HCl 4 MG Oral Tablet [...] mouth in the morning. 100 Capsule 2 05/09/19 25 Active Omeprazole 40 MG Oral Capsule Delayed Release (PriLOSEC) Take 1 Capsule by mouth in the morning. 90 Capsule 1 4 9:52 AM EDT 11/28/19 24 024 Discontin ued(Refil l) Hospital, Clinic, or Other Facility Administered Medication Ordered Dose Route Frequency Start Date End Date Status Vitamin B-12 (Cyanocobalamin) inj 1,000 mcgIndications:B12 deficiency 1000 mcg IM [id number] 01/27/2024 12/28/2024 Active documented as of this encounter (statuses as of 05/09/2024) Active Problems Problem Noted Date Diagnosed Date Endometrial cancer 03/28/2024 Cancer Staging:Clinical stage from 04/30/2024:FIGO Stage IA(cT0, cN0, cM0) - Signed by Hamida Belle MD on 05/05/2024 Chronic obstructive pulmonary disease 01/27/2024 Old [place] (myocardial infarction) 01/27/2024 Prediabetes 12/19/2023 Overview: Per [...] as of this encounter (statuses as of 05/09/2024) Resolved Problems Problem Noted Date Diagnosed Date [...] as of this encounter (statuses as of 05/09/2024) Immunizations Name Administration Dates Next Due Pneumococcal Conjugate Vacci ne, 20-valent (Ednizcl10) 04/08/2023 Pneumococcal Polysaccharide PPV23 (Pneumovax) 03/20/2016 Seasonal [...] file Not on file Not on file Travel History Travel Start Travel End [place] 04/08/2024 04/14/2024 documented as of this encounter Miscellaneous Notes * Telephone Encounter - Hamida Vasquez [facility] - 05/09/2024 7:48 AM ESTSigned Prescriptions: Disp Refills Omeprazole 40 MG Oral Capsule Delayed Rele*100 Ca*2 Sig: Take 1 Capsule by mouth in the morning. Authorizing Provider: ROSY JANSEN Ordering User: HAMIDA VASQUEZ Electronically signed by Hamida Vasuqez [facility] at 05/09/2024 7:48 AM EST * Telephone Encounter - Hamida Vasquez [facility] - 05/09/2024 7:48 AM ESTSigned Prescriptions: Disp Refills Omeprazole 40 MG Oral Capsule Delayed Rele*100 Ca*2 Sig: Take 1 Capsule by mouth in the morning. Authorizing Provider: ROSY JANSEN User: HAMIDA VASQUEZ * Telephone Encounter - Lorraine Chapman [facility] - 05/08/2024 3:26 PM EST Pharmacy is requesting a 100-day supply, pre-edited RXs as such. Please review and approve if appropriate. Pending Prescriptions: Disp Refills Omeprazole 40 MG Oral Capsule Delayed Rel*100 Ca*1 Sig: Take 1 Capsule by mouth in the morning. Last Visit: Visit date not found (in office), Visit date not found (telemedicine) Visit date not found If no future appointments scheduled, and last appointment is greater than a year ago, please schedule patient for an appointment Last date the medication was ordered: 11/28/23 Patient Phone Numbers Labs: Lab Results Component Value Date/Time CREAT 0.7 04/24/2024 12:59 PM CREAT 0.63 11/05/2020 12:00 AM CREAT 0.9 03/13/2020 10:08 AM POTASSIUM 4.3 04/24/2024 12:59 PM POTASSIUM 3.8 03/02/2024 12:00 AM POTASSIUM 4.4 03/13/2020 10:08 AM TSH 1.43 04/04/2024 09:11 AM TSH 1.80 03/13/2020 10:08 AM LDL 183 (H) 01/14/2023 09:41 AM LDL 157 (H) 03/13/2020 10:08 AM LDL NOT APPLICABLE 03/13/2020 10:08 AM LDLCALC 140 (H) 11/05/2020 12:00 AM ALT 16 08/04/2023 12:16 PM ALT 22 03/13/2020 10:08 AM HGBA1C 6.0 (H) 04/04/2024 09:11 AM HGBA1C 5.7 (H) 03/13/2020 10:08 AM documented in this encounter Plan of Treatment Upcoming Encounters Date Type Department Care Team (Late st Contact Info) Description 05/15/2024 11:00 AM EST Office Visit Gynecology/Oncology, [place] [address] [place] [address] Hamida Belle MD [facility] [place] [address] 05/16/2024 11:00 AM EST Office Visit Cardiology, [facility] [address] [facility] [place] [address] Rashaun Felix MD [address] [facility] [place] [address] 06/04/2024 11:30 AM EST Office Visit Interventional [facility] Ctr [facility] [address] [place] [address] Trino Mills CRNP 16 [place] [address] 06/14/2024 11:00 AM EST Office Visit Gynecology/Oncology, [place] [address] [place] [address] Дмитрий Love PA-C [facility] [place] [phone] 08/01/2024 10:15 AM EDT Office Visit Orthopaedics [facility] [address] [place] [address] Salinas Levine PA-C [address] [place] [address] 09/17/2024 11:30 AM EDT Office Visit Cardiology, [facility] [address] [place] [address] Rashaun Felix MD [address] [place] [address] Scheduled Procedures Name Priority Associated Diagnoses Date/Ti [...] exists *COPD SEVERITY VERIFIED BY PFT 01/29/2024 *NEPHROLOGY REFERRAL DUE TO RESISTANT HTN 04/20/2024 Depression Screening 08/03/2024 08/04/2023 Mammogram 11/08/2024 11/09/2023, [...] this encounter Medical Devices Implanted Type Area General Studies Program Chair Device Identifier Shelf Expiration Date Model / Serial / Lot Lens Intraoc 11.5 - [id number] - [id number] Implanted:Qty: 1 on 12/18/2019 by Azam Boo MD at OR [facility] Left: Eye BAUSCH & LOMB 10/06/2021 [id number] / [id number] / Lens Intraoc 11.5 - [id number] - [id number] Implanted:Qty: 1 on 12/31/2019 by Azam Boo MD at OR [facility] Right: Eye BAUSCH & LOMB 07/06/2024 [id number] / [id number] / [id number] documented as of this encounter Advance Directives [...] and were consensually agreed upon. Care Teams Debone Supervisor Relationship Specialty Start Date End Date Rosy Jansen PA-C [address] [place] [address] PCP - General Physician Medical Clerical Assistant 04/30/24 documented as of this encounter
--- OUTSIDE RECORDS SUMMARY | 2024-06-29 10:59 | External Medical Summary | Summary of Care ---
Author Name Unknown Organization [facility] Address [address] [facility] [address] Phone [phone] Care Team Providers Care Clean In Places Operator Name Role Phone Rosy Cummins PA-C Primary Care Provider [phone] Reason for Visit * Reason Onset Date Comments Med Request 02/06/2024 Diflucan Encounter Details Date Type Department Care Team (Late st Contact Info) Description 02/06/2024 Telephone [facility] DEPT CLOSED - 04/26/24 [address] [facility] [place] [address] Rosy Cummins PA-C [address] [place] [address] Med Request (Diflucan) Allergies Active Allergy Reactions Criticality Noted Date Comments Azelastine Nausea/vomiting 12/29/2023 Cetirizine Other (Please comment) 11/22/2021 headache Latex Rash 10/14/2021 Metoprolol Unknown 10/14/2021 Sulfa Antibiotics 08/13/2002 bactrim only-itching afater 1 week Tartaric Acid Unknown 10/14/2021 Valacyclovir 11/23/2022 Renal calculi documented as of this encounter (statuses as of 05/07/2024) Medications Multiple Vitamins-Minerals (DAILY MULTIVITAMIN) CAPS Take [...] 15 MG Oral Tablet (Buspar)Indication s:Stress [facility] to one whole tab by mouth up [...] 4 9:05 AM EDT 11/23/19 24 Active Omeprazole 40 MG Oral Capsule Delayed Release (PriLOSEC) Take 1 Capsule by mouth in the morning. 90 Capsule 1 4 9:52 AM EDT 11/28/19 24 Active Ondansetron HCl 4 MG [...] bedtime. 30 g 1 01/24/20 24 Active Lisinopril 10 MG Oral Tablet (Prinivil)Indicati ons:Essential hypertension with goal blood pressure less than 140/90 TAKE BY MOUTH 2 TABLETS IN THE MORNING. 180 Tablet 3 09/11/19 23 024 Discontinu ed(Refill) Famciclovir 250 MG Oral Tablet (Famvir)Indication s:Herpes simplex of female genitalia Take 1 Tablet by mouth in the morning. 90 Tablet 1 01/04/20 23 024 Discontinu ed(Refill) Atorvastatin Calcium 40 MG Oral Tablet (Lipitor)Indicatio ns:Hyperlipidemia with target LDL less than 100 Take 1 Tablet by mouth in the morning. 100 Tablet 3 4 6:08 PM EST 04/08/20 23 024 Discontinu ed(Patient preference /discontin uation) Montelukast Sodium 10 MG Oral Tablet (Singulair)Indicat ions:RUDOLPH (dyspnea on exertion),Phlegm in throat TAKE 1 TABLET BY MOUTH EVERYDAY AT BEDTIME 90 Tablet 1 4 6:31 PM EDT 11/24/19 24 024 Discontinu ed(Refill) Albuterol Sulfate HFA 108 (90 Base) MCG/ACT Inhalation Aerosol Solution Inhale 2 Puffs by mouth every 6 hours as needed (stomach irritation). 54 g 1 4 5:20 PM EDT 11/28/19 24 024 Discontinu ed(Medicat ion List Clean Up) Gabapentin 100 MG Oral Capsule (Neurontin)Indicat ions:Lumbar radicular pain Take 2 Capsules by mouth in the morning and 2 Capsules at noon and 2 Capsules before bedtime. 540 Capsule 4 6:33 AM EDT 12/27/19 24 024 Discontinu ed(Refill) Azithromycin 250 MG Oral Tablet (Zithromax Z-Hal)Indications: Acute recurrent maxillary sinusitis Take two tablets by mouth on first day, then 1 tablet daily until gone 6 Tablet 01/27/20 24 024 Discontinu ed(Refill) Fluconazole 150 MG Oral Tablet (Diflucan)Indicati ons:Vaginal discharge Take 1 Tablet by mouth once for 1 dose. 1 Tablet 02/06/20 24 Hospital, Clinic, or Other Facility Administered Medication Ordered Dose Route Frequency Start Date End Date Status Vitamin B-12 (Cyanocobalamin) inj 1,000 mcgIndications:B12 deficiency 1000 mcg IM [id number] 01/27/2024 12/28/2024 Active documented as of this encounter (statuses as of 05/07/2024) Active Problems Problem Noted Date Diagnosed Date Endometrial cancer 03/28/2024 Cancer Staging:Clinical stage from 04/30/2024:FIGO Stage IA(cT0, cN0, cM0) - Signed by Shekhar Belle MD on 05/05/2024 Chronic obstructive pulmonary disease 01/27/2024 Old [place] (myocardial infarction) 01/27/2024 Prediabetes 12/19/2023 Overview: Per [...] as of this encounter (statuses as of 05/07/2024) Resolved Problems Problem Noted Date Diagnosed Date [...] as of this encounter (statuses as of 05/07/2024) Immunizations Name Administration Dates Next Due Pneumococcal Conjugate Vacci ne, 20-valent ([id number]) 04/08/2023 Pneumococcal Polysaccharide PPV23 (Pneumovax) 03/20/2016 Seasonal [...] 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 Rosy Cummins PA-C 02/06/2024 4:29 PM * Telephone Encounter - Grey Teixeira LPN - 02/06/2024 4:23 PM EDT Patient calling in today. Complains of vaginal discharge for 1 days; described as white, non bloody, without pain. Itching ispresent. Completed z-hal on 01/31. Requesting Diflucan [id number] [address] [place] [address] Please advice documented in this encounter Plan of Treatment Upcoming Encounters Date Type Department Care Team (Late st Contact Info) Description 05/15/2024 11:00 AM EST Office Visit Gynecology/Oncology, [place] [address] [place] [address] Shekhar Belle MD [address] [place] [address] 06/04/2024 11:30 AM EST Office Visit [facility] [place] [address] [place] [address] Trino Mills CRNP [address] [place] [address] 06/14/2024 11:00 AM EST Office Visit Gynecology/Oncology, [place] [address], [place] [id number] Дмитрий Love PA-C [address] [place] [address] 08/01/2024 10:15 AM EDT Office Visit Orthopaedics [facility] [address] [facility] [place] [address] Sal[place] Levine PA-C [address] [facility] [place] [address] 09/17/2024 11:30 AM EDT Office Visit Cardiology, [facility] [address] [place] [address] Rashaun Felix MD [address] [place] [address] Scheduled Procedures Name Priority Associated Diagnoses Date/Ti [...] this encounter Medical Devices Implanted Type Area Newspaper Photo Editor Device Identifier Shelf Expiration Date Model / Serial / Lot Lens Intraoc 11.5 - [id number] - [id number] Implanted:Qty: 1 on 12/18/2019 by Azam Boo MD at [facility] Left: Eye [employer] LOMB 10/06/2021 [id number] / [id number] / Lens Intraoc 11.5 - [id number] - [id number] Implanted:Qty: 1 on 12/31/2019 by Azam Boo MD at [facility] Right: Eye [employer] LOMB 07/06/2024 [id number] / [id number] / [id number] documented as of this encounter Visit Diagnoses Diagnosis Vaginal discharge- Primary Leukorrhea, not specified as infective documented in this encounter Advance Directives * [...] and were consensually agreed upon. Care Teams Clean In Places Operator Relationship Specialty Start Date End Date Rosy Cummins PA-C [address] [place] [address] PCP - General Physician Macaroni Press Operator 04/30/24 documented as of this encounter
--- OUTSIDE RECORDS SUMMARY | 2024-06-29 10:59 | External Medical Summary | Summary of Care ---
Author Name Unknown Organization [facility] Address [address] [facility] [place] [address] Phone [phone] Care Team Providers Care Control Officer Name Role Phone Rosy Cummins PA-C Primary Care Provider [phone] Encounter Details Date Type Department Care Team (Late st Contact Info) Description 05/10/2024 Population Health External Data Unspecified Department Allergies Active Allergy Reactions Criticality Noted Date Comments Azelastine Nausea/vomiting 12/29/2023 Cetirizine Other (Please comment) 11/22/2021 headache Latex Rash 10/14/2021 Metoprolol Unknown 10/14/2021 Sulfa Antibiotics 08/13/2002 bactrim only-itching afater 1 week Tartaric Acid Unknown 10/14/2021 Valacyclovir 11/23/2022 Renal calculi documented as of this encounter (statuses as of 05/15/2024) Medications Multiple Vitamins-Minerals (DAILY MULTIVITAMIN) CAPS Take [...] 24 Active Gabapentin 100 MG Oral Capsule (Neurontin)Indicati [...] morning. 100 Capsule 2 05/09/19 25 Active Hospital, Clinic, or Other Facility Administered Medication Ordered Dose Route Frequency Start Date End Date Status Vitamin B-12 (Cyanocobalamin) inj 1,000 mcgIndications:B12 deficiency 1000 mcg IM [id number] 01/27/2024 12/28/2024 Active documented as of this encounter (statuses as of 05/15/2024) Active Problems Problem Noted Date Diagnosed Date Endometrial cancer 03/28/2024 Cancer Staging:Clinical stage from 04/30/2024:FIGO Stage IA(cT0, cN0, cM0) - Signed by Shekhar Belle MD on 05/05/2024 Chronic obstructive pulmonary disease 01/27/2024 Old [place] (myocardial infarction) 01/27/2024 Prediabetes 12/19/2023 Overview: Per [...] as of this encounter (statuses as of 05/15/2024) Resolved Problems Problem Noted Date Diagnosed Date [...] as of this encounter (statuses as of 05/15/2024) Immunizations Name Administration Dates Next Due Pneumococcal Conjugate Vacci ne, 20-valent ([id number]) 04/08/2023 Pneumococcal Polysaccharide PPV23 (Pneumovax) 03/20/2016 Seasonal [...] 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, 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 Not on file Travel History Travel Start Travel End [place] 04/08/2024 04/14/2024 documented as of this encounter Plan of Treatment Upcoming Encounters Date Type Department Care Team (Late st Contact Info) Description 05/15/2024 11:00 AM EST Office Visit Gynecology/Oncology, [place] [address] [place] [address] Shekhar Belle MD [address] [place] [address] 05/16/2024 11:00 AM EST Office Visit Cardiology, [facility] [address] [place] [address] Rashaun Felix MD [address] [facility] [place] [address] 06/04/2024 11:30 AM EST Office Visit [facility]tr [place], [place] [address] [place] [address] Trino Mills CRNP [address] [place] [address] 06/14/2024 11:00 AM EST Office Visit Gynecology/Oncology, [place] [address] [place] [address] Дмитрий Love PA-C [address] [place] [address] 08/01/2024 10:15 AM EDT Office Visit Orthopaedics [facility] [address] [place] [address] Salinas Levine PA-C [address] [place] [address] 09/17/2024 11:30 AM EDT Office Visit Cardiology, [facility] [address] [facility] [place] [address] Rashaun Felix MD [address] [place] [address] Scheduled Procedures Name Priority Associated Diagnoses Date/Ti [...] this encounter Medical Devices Implanted Type Area Home Care Nurse Device Identifier Shelf Expiration Date Model / Serial / Lot Lens Intraoc 11.5 - [id number] - [id number] Implanted:Qty: 1 on 12/18/2019 by Azam Boo MD at [facility] Left: Eye [employer]CH [employer] LOMB 10/06/2021 [id number] / [id number] / Lens Intraoc 11.5 - [id number] - [id number] Implanted:Qty: 1 on 12/31/2019 by Azam Boo MD at [facility] Right: Eye BAUSCH [employer] LOMB 07/06/2024 [id number] / [id number] / [id number] documented as of this encounter Advance Directives * Full Code (Latest Code Status on File) Date Activated Date Inactivated Comments 04/30/2024 9:07 AM 04/30/2024 4:36 PM This orde r reflects the patients wishes and were consensually agreed upon. Question Answer Comments Discussion of Advance Direct leslie occurred with: Not Discussed due to patient's condition * Full Code Date Activated Date Inactivated Comments 11/18/2016 1:02 PM 11/19/2016 3:42 PM This order r eflects the patients wishes and were consensually agreed upon. Care Teams Control Officer Relationship Specialty Start Date End Date Rosy Cummins PA-C [address] [place] [address] PCP - General Physician Kettle Operator Head 04/30/24 documented as of this encounter
--- OUTSIDE RECORDS SUMMARY | 2024-06-29 10:59 | External Medical Summary | Summary of Care ---
Author Name Unknown Organization [facility] Address [address] [facility] [place] [place] [address] Phone [phone] Care Team Providers Care Stove Refinisher Name Role Phone Rosy Cummins PA-C Primary Care Provider [phone] Reason for Visit * Reason Onset Date Comments Appointment Canceled 05/07/2024 06/11/2024 Encounter Details Date Type Department Care Team (Late st Contact Info) Description 05/07/2024 Telephone Gynecology/Oncology, [place] [address] [place] [address] Дмитрий Love PA-C [address] [place] [address] Appointment Canceled (06/11/2024) Allergies Active Allergy Reactions Criticality Noted Date [...] Montelukast Sodium 10 MG Oral Tablet (Singulair)Indicati ons:RDUOLPH (dyspnea on exertion),Phlegm in throat TAKE 1 [...] 4 11:36 AM EST 04/30/20 24 Active Hospital, Clinic, or Other Facility Administered Medication Ordered Dose Route Frequency Start Date End Date Status Vitamin B-12 (Cyanocobalamin) inj 1,000 mcgIndications:B12 deficiency 1000 mcg IM [id number] 01/27/2024 12/28/2024 Active documented as of this encounter (statuses as of 05/07/2024) Active Problems Problem Noted Date Diagnosed Date Endometrial cancer 03/28/2024 Cancer Staging:Clinical stage from 04/30/2024:FIGO Stage IA(cT0, cN0, cM0) - Signed by Shekhar Belle MD on 05/05/2024 Chronic obstructive pulmonary disease 01/27/2024 Old [place] (myocardial infarction) 01/27/2024 Prediabetes 12/19/2023 Overview: Per [...] Next Due Pneumococcal Conjugate Vacci ne, 20-valent ([id number]) 04/08/2023 Pneumococcal Polysaccharide PPV23 (Pneumovax) 03/20/2016 Seasonal [...] 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 Pt confirmed with transport person that new appointment time will work for them. documented in this encounter Plan of Treatment Upcoming Encounters Date Type Department Care Team (Late st Contact Info) Description 05/15/2024 11:00 AM EST Office Visit Gynecology/Oncology, [place] [address] [facility] [place] [address] Shekhar Belle MD [address] [place] [address] 05/17/2024 1:00 PM EST Office Visit Allergy/Immunology [facility] [address] [place] [address] Carlo Arambula MD [address] [place] [address] 06/04/2024 11:30 AM EST Office Visit Interventional Pain Ctr [facility] [address] [place] [address] Trino Mills CRNP [address] [place] [address] 06/14/2024 11:00 AM EST [facility] [address] [place] [address] Дмитрий Love PA-C [address] [place] [address] 08/01/2024 10:15 AM EDT Office Visit Orthopaedics [facility] [address] [facility] [place] [address] Sal[place] Levine PA-C [facility] [place] [address] 09/17/2024 11:30 AM EDT Office Visit Cardiology, [facility] [address] [place] [address] Rashaun Felix MD [address] [place] [address] Scheduled Procedures Name Priority Associated Diagnoses Date/Ti [...] this encounter Medical Devices Implanted Type Area Color Separation Photographer Device Identifier Shelf Expiration Date Model / Serial / Lot Lens Intraoc 11.5 - [id number] - [id number] Implanted:Qty: 1 on 12/18/2019 by Azam Boo MD at OR [facility] Left: Eye BAUSCH [employer] LOMB 10/06/2021 [id number] / [id number] / Lens Intraoc 11.5 - [id number] - [id number] Implanted:Qty: 1 on 12/31/2019 by Azam Boo MD at OR [facility] Right: Eye BAUSCH [employer] LOMB 07/06/2024 [id number] / [id number] / [id number] documented as of this encounter Advance Directives [...] and were consensually agreed upon. Care Teams Stove Refinisher Relationship Specialty Start Date End Date Rosy Cummins PA-C [address] [place] [address] PCP - General Physician Marksmanship Instructor 04/30/24 documented as of this encounter
--- OUTSIDE RECORDS SUMMARY | 2024-06-29 10:59 | External Medical Summary | Summary of Care ---
Author Name Unknown Organization [facility] Address [address] [facility] [place] [address] Phone [phone] Care Team Providers Care Family Literacy Coordinator Name Role Phone Rosy Cummins PA-C Primary Care Provider [phone] Reason for Visit * Reason Comments Medication Refill Encounter Details Date Type Department Care Team (Late st Contact Info) Description 04/29/2024 Refill [facility] [place] [address] [place], [place] [phone] Caryl Mckeon MD [address] [place], [place] [phone] Lumbar radicular pain Allergies Active Allergy Reactions Criticality Noted Date Comments Azelastine Nausea/vomiting 12/29/2023 Cetirizine Other (Please comment) 11/22/2021 headache Latex Rash 10/14/2021 Metoprolol Unknown 10/14/2021 Sulfa Antibiotics 08/13/2002 bactrim only-itching afater 1 week Tartaric Acid Unknown 10/14/2021 Valacyclovir 11/23/2022 Renal calculi documented as of this encounter (statuses as of 04/30/2024) Medications Gabapentin 100 MG Oral Capsule (Neurontin)Indicat ions:Lumbar radicular pain Take 2 Capsules by mouth in the morning and 2 Capsules at noon and 2 Capsules before bedtime. 540 Capsule 04/30/20 24 2024 Active Multiple Vitamins-Minerals (DAILY MULTIVITAMIN) CAPS Take 1 Capsule by mouth every evening. 03/15/20 16 Suspended Zinc 25 MG TABS Take 1 Tablet by mouth every morning. Suspended ibuprofen (MOTRIN) 200 MG Tablet Take 2 Tablets by mouth in the morning and 2 Tablets before bedtime. Suspended CPAP every night at bedtime . Suspended oxygen IN GAS Use as directed 2 L/min(Oxygen) at bedtime . 2.5 Suspended Levocetirizine Dihydrochloride 5 MG Oral Tablet Take 1 Tablet by mouth every evening. 11/21/19 Suspended Qvar RediHaler 80 MCG/ACT Inhalation Aerosol Breath Activated (Beclomethasone Diprop HFA)Indications:Dy spnea and respiratory abnormality Inhale 2 Puffs by mouth in the morning and 2 Puffs before bedtime. 3 Each 3 03/17/20 Suspended guaiFENesin ER 600 MG Oral Tablet Extended Release 12 Hour Take 1 Tablet by mouth in the morning. Suspended hydroCHLOROthiazid e 25 MG Oral Tablet (Hydrodiuril)Indic ations:PAF (paroxysmal atrial fibrillation) (HCC) Take 1 Tablet by mouth in the morning. 90 Tablet 3 06/15/19 23 Suspended Additional Information Patient taking differently: 12.5 mgOral Daily(AM), Reported on 04/30/2024 Clobetasol Propionate 0.05 % External Cream (Temovate) Apply topically to affected area daily. To affected area 15 g 1 08/26/19 Suspended Magnesium 400 MG Oral Tablet Take by mouth. At bedtime Suspended busPIRone HCl 15 MG Oral Tablet (Buspar)Indication s:Stress Oneh mcfp to one whole tab by mouth up to three times a day as needed for nerves 20 Tablet 04/08/20 Suspended Additional Information Patient not taking.Reported on 04/30/2024 dilTIAZem HCl ER Coated Beads 120 MG Oral Capsule Extended Release 24 Hour (Cardizem CD)Indications:PAF (paroxysmal atrial fibrillation) (HCC) Take 1 Capsule by mouth daily. In the evening. 90 Capsule 3 4 3:40 PM EST 04/08/20 Suspended Meclizine HCl 25 MG Oral Tablet (Antivert) Take 1-2 tablets by mouth 3 times a day as needed for dizziness. 540 Tablet 1 4 9:05 AM EDT 11/23/19 24 Suspended Omeprazole 40 MG Oral Capsule Delayed Release (PriLOSEC) Take 1 Capsule by mouth in the morning. 90 Capsule 1 4 9:52 AM EDT 11/28/19 24 Suspended Ondansetron HCl 4 MG Oral Tablet (Zofran)Indication s:Nausea Take 1 Tablet by mouth every 8 hours as needed for Nausea. 20 Tablet 12/07/19 24 Suspended Gabapentin 100 MG Oral Capsule (Neurontin)Indicat ions:Lumbar radicular pain Take 2 Capsules by mouth in the morning and 2 Capsules at noon and 2 Capsules before bedtime. 540 Capsule 4 6:33 AM EDT 12/27/19 24 2023 Discontinue d(Refill) Sodium Hyaluronate 60 MG/3ML Intra-articular Prefilled Syringe (Durolane) Inject contents of prefilled syringe into the right knee one time. 3 mL 4 3:35 PM EDT 01/02/20 24 Suspended Olopatadine HCl 0.6 % Nasal SolutionIndication s:Phlegm in throat,Vertigo Administer 2 Sprays into nostril in the morning and 2 Sprays before bedtime. 30 g 1 01/24/20 24 Suspended Famciclovir 250 MG Oral Tablet (Famvir)Indication s:Herpes simplex of female genitalia Take 1 Tablet by mouth in the morning. 90 Tablet 1 4 6:15 PM EDT 02/10/20 24 Suspended Lisinopril 10 MG Oral Tablet (Prinivil)Indicati ons:Essential hypertension with goal blood pressure less than 140/90 Take 2 Tablets by mouth in the morning. 180 Tablet 3 4 6:37 PM EDT 02/20/20 24 Suspended Montelukast Sodium 10 MG Oral Tablet (Singulair)Indicat ions:RUDOLPH (dyspnea on exertion),Phlegm in throat TAKE 1 TABLET BY MOUTH EVERYDAY AT BEDTIME 90 Tablet 1 03/01/20 24 Suspended Nitroglycerin 0.4 MG Sublingual Tablet Sublingual (Nitrostat) Place 1 Tablet under the tongue as needed for chest pain. May repeat 3 times. If chest pain continues, call 911. 25 Tablet 11 4 3:40 PM EST 03/14/20 24 Suspended rOPINIRole HCl 0.25 MG Oral Tablet (Requip) Take 1 Tablet by mouth in the morning and 1 Tablet at noon and 1 Tablet before bedtime. take With food. 90 Tablet 11 4 3:40 PM EST 03/14/20 24 Suspended Amoxicillin-Pot Clavulanate 875-125 MG Oral Tablet (Augmentin)Indicat ions:Acute cystitis without hematuria Take 1 Tablet by mouth in the morning and 1 Tablet before bedtime. 20 Tablet 03/14/20 24 Suspended Fluconazole 150 MG Oral Tablet (Diflucan)Indicati ons:Acute cystitis without hematuria Take one tab every 3 days while on antibiotic 4 Tablet 03/14/20 24 Suspended Albuterol Sulfate HFA 108 (90 Base) MCG/ACT Inhalation Aerosol Solution Inhale 2 Puffs by mouth every 6 hours as needed for stomach irritation. 20.1 g 11/28/19 24 Suspended Azithromycin 250 MG Oral Tablet (Zithromax Z-Hal) Take two tablets by mouth on first day, then 1 tablet daily until gone 6 Tablet 04/19/20 24 Suspended documented as of this encounter (statuses as of 04/30/2024) Active Problems Problem Noted Date Diagnosed Date Endometrial cancer 03/28/2024 Chronic obstructive pulmonary disease 01/27/2024 Old [place] (myocardial infarction) 01/27/2024 Prediabetes 12/19/2023 Overview: Per [...] as of this encounter (statuses as of 04/30/2024) Resolved Problems Problem Noted Date Diagnosed Date [...] as of this encounter (statuses as of 04/30/2024) Immunizations Name Administration Dates Next Due Pneumococcal Conjugate Vacci ne, 20-valent ([id number]) 04/08/2023 Pneumococcal Polysaccharide PPV23 (Pneumovax) 03/20/2016 Seasonal [...] 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 Authorizing Provider: CARYL MCKEON * Telephone Encounter - Cyn Samuels OSA - 04/30/2024 7:11 AM EST Pending Prescriptions: Disp Refills Gabapentin 100 MG Oral Capsule (Neurontin) 540 Ca*0 Sig: Take 2Capsules by mouth in the morning and 2 Capsules at noon and 2 Capsules before bedtime. documented in this encounter Plan of Treatment Upcoming Encounters Date Type Department Care Team (Late st Contact Info) Description 05/15/2024 11:00 AM EST Office [facility], [place] [address] [facility] [place] [phone] Shekhar Belle MD [address] [place] [address] 05/17/2024 1:00 PM EST Office Visit Allergy/Immunology [facility] [address] [place] [address] Carlo Arambula MD [address] [place] [address] 06/04/2024 11:30 AM EST Office Visit Interventional Pain Ctr [facility] [address] [place] [address] Trino Mills CRNP [address] [place] [address] 06/11/2024 10:30 AM EST [facility] [address] [place] [address] Дмитрий Love PA-C [address] [place] [phone] 08/01/2024 10:15 AM EDT Office Visit Orthopaedics [facility] [address] [place] [address] Sal[place] Levine PA-C [address] [place] [address] 09/17/2024 11:30 AM EDT Office Visit Cardiology, [facility] [address] [place] [address] Rashaun Felix MD [address] [place] [address] Scheduled Procedures Name Priority Associated Diagnoses Date/Ti ar ROBOTIC LAPAROSCOPIC HYSTERECTOMY WITH REMOVAL TUBES AND/OR OVARIES FOR UTERUS GREATER THAN 250GM Endometrial cancer (HCC) 04/30/2024 6:30 AM EST LAPAROSCOPIC RETROPERITONEAL LYMPH NODE SAMPLING Endometrial cancer (HCC) 04/30/2024 6:30 AM EST PELVIC EXAMINATION UNDER ANESTHESIA Endometrial cancer (HCC) 04/30/2024 6:30 AM EST COLONOSCOPY FLEXIBLE PROXIMA L DIAGNOSTIC Recall Encounter [...] 04/08, 06/23/2006, Additional history exists Pneumococcal Vaccine: 65+ Years Completed 04/08/2023, 03/20/2016, 02/24/2000 Alpha-1 Antitrypsin Completed 04/04/2024 HPV (Gardasil) Vaccine Aged Out No lo nger eligible based on patient's age to complete this topic MENINGOCOCCAL (MENACTRA/MENVEO) Aged Out No longer eligible based on patient's age to complete this topic Zoster Vaccines Discontinued documented as of this encounter Medical Devices Implanted Type Area Toolman Device Identifier Shelf Expiration Date Model / Serial / Lot Lens Intraoc 11.5 - [id number] - [id number] Implanted:Qty: 1 on 12/18/2019 by Azam Boo MD at OR [facility] Left: Eye [employer]CH [employer] LOM[employer] 10/06/2021 [id number] / [id number] / Lens Intraoc 11.5 - [id number] - [id number] Implanted:Qty: 1 on 12/31/2019 by Azam Boo MD at OR [facility] Right: Eye BAUSCH [employer] LOMB 07/06/2024 [id number] / [id number] / [id number] documented as of this encounter Visit Diagnoses Diagnosis Lumbar radicular pain Thoracic or lumbosacral neuritis or radiculitis, unspecified documented in this encounter Advance Directives * Full Code (Latest Code Status on File) Date Activated Date Inactivated Comments 11/18/2016 1:02 PM 11/19/2016 3:42 PM This order r eflects the patients wishes and were consensually agreed upon. Care Teams Family Literacy Coordinator Relationship Specialty Start Date End Date Rosy Cummins PA-C [facility] [place] [address] PCP - General Physician Glue Maker 04/30/24 documented as of this encounter
--- OUTSIDE RECORDS SUMMARY | 2024-06-29 10:59 | External Medical Summary | Summary of Care ---
Author Name Unknown Organization [facility] Address [address] [facility] [place] [address] Phone [phone] Care Team Providers Care Faculty Neuropsychologist Name Role Phone Rosy Cummins PA-C Primary Care Provider [phone] Reason for Visit * Reason Comments Follow Up 2 week post op Encounter Details Date Type Department Care Team (Late st Contact Info) Description 05/15/2024 11:00 AM EST Office Visit Gynecology/Oncology, [place] [address] [place], [place] [phone] Shekhar Belle MD [address] [place] [address] Endometrial cancer (HCC)* Allergies Active Allergy Reactions Criticality Noted Date [...] 15 MG Oral Tablet (Buspar)Indications :Stress Oneh residential to one whole tab by mouth up [...] inj 1,000 mcgIndications:B12 deficiency 1000 mcg IM [id number] 01/27/2024 12/28/2024 Active documented as of this encounter (statuses as of 05/15/2024) Active Problems Problem Noted Date Diagnosed Date Endometrial cancer 03/28/2024 Cancer Staging:Clinical stage from 04/30/2024:FIGO Stage IA(cT0, cN0, cM0) - Signed by Shekhar Belle MD on 05/05/2024 Chronic obstructive pulmonary disease 01/27/2024 Old [place] (myocardial infarction) 01/27/2024 Prediabetes 12/19/2023 Overview: Per [...] Next Due Pneumococcal Conjugate Vacci ne, 20-valent ([id number]) 04/08/2023 Pneumococcal Polysaccharide PPV23 (Pneumovax) 03/20/2016 Seasonal [...] 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, 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 Not on file Travel History Travel Start Travel End [facility] 04/08/2024 04/14/2024 documented as of this encounter Last Filed Vital Signs Vital Sign Reading Time Taken Comments Blood Pressure 130/52 05/15/2024 11:14 AM EST Pulse - - Temperature - - Respiratory Rate - - Oxygen Saturation - - Inhaled Oxygen Concentration - - Weight 101.6 kg (224 lb) 05/15/2024 11:14 AM EST Height - - Body Mass Index 40.97 04/30/2024 5:38 AM EST documented in this encounter Progress Notes * Shekhar Belle MD - 05/15/2024 11:00 AM EST CC: Post Operative Appointment HPI: The patient is a delightful 69-year-old with stage IA undifferentiated endometrial cancer. On April 30, 2024 the patient underwent a robotic assisted total laparoscopic hysterectomy with bilateral salpingo-oophorectomy and bilateral sentinel pelvic lymph node dissection. Final pathology from her hysterectomy specimen revealed no residual carcinoma. The patient will not need further cancer directed treatment. FINAL PATHOLOGY: A. Lymph Node, Right [place] pelvic, biopsy: No evidence of metastasis in 1 lymph node (0/1) B. Lymph Node, Left sentinel pelvic biopsy: Benign fibroadipose tissue only No lymph node parenchyma identified C. Uterus, cervix, bilateral ovaries and fallopian tubes, hysterectomy with bilateral salpingo-oophorectomy: Uterine corpus:Atrophic endometrium with benign polyps Adenomyosis and benign leiomyomas No residual carcinoma identified Cervix: No diagnostic abnormalities Ovaries: No diagnostic abnormalities Fallopian tubes:No diagnostic abnormalities No intra op or post op complications. Returns for first post-op visit with no issues. Patient reports no problems Bowel and bladder function have normalized. Denies fevers or chills. Denies any problems with wound. Denies any vaginal bleeding or discharge. Denies lower extremity swelling. PE: BP 130/52 (BP Site: Left Arm, BP Position: Sitting, BP Cuff Size: Large) | Wt 101.6 kg (224 lb) | LMP 06/06/2006 | BMI 40.97 kg/m | BSA 2.11 m General: Pleasant, well nourished, NAD, A&O x 3 Abdomen: Soft and nontender, negative masses, no organomegally Incision: No induration or fluctuance or erythema. Lower extremities: non-tender and non-edematous Imp: Healing well 2 weeks s/p surgery Final path revealed stage IA undifferentiated endometrial carcinoma Tumor Board Recommendations: Observation Plan: Return in 4 weeks for vaginal cuff check. Shekhar Belle MD, PhD, FACOG, FACS Chief, Gynecologic Oncology [facility] Equity Holder of Obstetrics and Gynecology [employer] documented in this encounter Nursing Notes * Urmila Fitzpatrick TECH - 05/15/2024 11:15 AM EST Kateryna is presented to the clinic today with her daughter Kirstie Phoenix for 2week post op documented in this encounter Plan of Treatment Upcoming Encounters Date Type Department Care Team (Late st Contact Info) Description 05/16/2024 11:00 AM EST Office Visit Cardiology, [facility] [address] [place] [address] Rashaun Felix MD [address] [place] [address] 06/04/2024 11:30 AM EST Office Visit Interventional Pain Ctr [facility] [address] [place] [address] Trino Mills CRNP [address] [place] [address] 06/14/2024 11:00 AM EST [facility] [address] [place], [place] [phone] Дмитрий Love PA-C [address] [place] [address] 08/01/2024 10:15 AM EDT Office Visit Orthopaedics [facility] [address] [place] [phone] Sal[place] Levine PA-C [address] [place] [address] 09/17/2024 11:30 AM EDT Office Visit Cardiology, [facility] [address] [place] [address] Rashaun Felix MD [address] [place] [address] Scheduled Procedures Name Priority Associated Diagnoses Date/Ti [...] this encounter Medical Devices Implanted Type Area Coal Drier Operator Device Identifier Shelf Expiration Date Model / Serial / Lot Lens Intraoc 11.5 - [id number] - [id number] Implanted:Qty: 1 on 12/18/2019 by Azam Boo MD at OR [facility] Left: Eye BAUSCH & LOMB 10/06/2021 [id number] / [id number] / Lens Intraoc 11.5 - [id number] - [id number] Implanted:Qty: 1 on 12/31/2019 by Azam Boo MD at OR [facility] Right: Eye BAUSCH & LOMB 07/06/2024 [id number] / [id number] / [id number] documented as of this encounter Visit Diagnoses Diagnosis Endometrial cancer (HCC)- Primary Malignant neoplasm of corpus uteri, except isthmus documented in this encounter Advance Directives * [...] and were consensually agreed upon. Care Teams Faculty Neuropsychologist Relationship Specialty Start Date End Date Rosy Cummins PA-C [address] [place] [address] PCP - General Physician Senior Training And Development Rep 04/30/24 documented as of this encounter"
--- OUTSIDE RECORDS SUMMARY | 2024-06-29 10:59 | External Medical Summary | Summary of Care ---
Author Name Unknown Organization [facility] Address [address] [place] [address] Phone [phone] Care Team Providers Care Fpga Design Engineer Name Role Phone Rosy Cummins PA-C Primary Care Provider [phone] Reason for Visit * Auth/Cert Specialty Diagnoses / Procedures Referred By Jeremías staley Referred To Contact Diagnoses Endometrial cancer (HCC) Endometrial cancer (HCC) [C54.1] Procedures LAPAROSCOPY TOTAL HYSTX, UTERUS > 250GM TUBE/OVARY LAPAROSCOPY,SINGLE/MULT BIOPSY PELVIC EXAM UNDER ANESTHESIA, NOT LOCAL ROBOTIC LAPAROSCOPIC HYSTERECTOMY WITH REMOVAL TUBES AND OVARIES FOR UTERUS GREATER THAN 250GM LAPAROSCOPIC RETROPERITONEAL LYMPH NODE SAMPLING PELVIC EXAMINATION UNDER ANESTHESIA Shekhar Belle MD [address] [place] [address] Phone: tel: fax: [place] C, OPERATING ROOM [facility] [address] [place] [address] Phone: tel: Referral ID Status Reason Start Date Expiration Date Visits Re quested Visits Authorized [id number] Encounter Details Date Type Department Care Team (Latest Contact Info) Description 04/30/2024 5:35 AM EST - 04/30/2024 12:36 PM EST Hospital Encounter OR C, OPERATING ROOM [facility] [address] [place] [address] Shekhar Belle MD [address] [place] [address] Discharge Disposition: Home - Self Care Allergies Active Allergy Reactions Criticality Noted Date Comments Azelastine Nausea/vomiting 12/29/2023 Cetirizine Other (Please comment) 11/22/2021 headache Latex Rash 10/14/2021 Metoprolol Unknown 10/14/2021 Sulfa Antibiotics 08/13/2002 bactrim only-itching afater 1 week Tartaric Acid Unknown 10/14/2021 Valacyclovir 11/23/2022 Renal calculi documented as of this encounter (statuses as of 05/01/2024) Medications Multiple Vitamins-Minerals (DAILY MULTIVITAMIN) CAPS Take 1 Capsule by mouth every evening. 016 Active Zinc 25 MG TABS Take 1 [...] Take 1 Tablet by mouth every evening. 022 Active Qvar RediHaler 80 MCG/ACT Inhalation Aerosol Breath Activated (Beclomethasone Diprop HFA)Indications:Dy spnea and respiratory abnormality Inhale 2 Puffs by mouth in the morning and 2 Puffs before bedtime. 3 Each 3 022 Active guaiFENesin ER 600 MG Oral Tablet Extended Release 12 Hour Take 1 Tablet by mouth in the morning. Active hydroCHLOROthiazid e 25 MG Oral Tablet (Hydrodiuril)Indic ations:PAF (paroxysmal atrial fibrillation) (HCC) Take 1 Tablet by mouth in the morning. 90 Tablet 3 023 Active Additional Information Patient taking differently: 12.5 mgOral Daily(AM), Reported on 04/30/2024 Clobetasol Propionate 0.05 % External Cream (Temovate) Apply topically to affected area daily. To affected area 15 g 1 023 Active Magnesium 400 MG Oral Tablet Take by mouth. At bedtime Active busPIRone HCl 15 MG Oral Tablet (Buspar)Indication s:Stress Oneh pili to one whole tab by mouth up to three times a day as needed for nerves 20 Tablet Active Additional Information Patient not taking.Reported on 04/30/2024 dilTIAZem HCl ER Coated Beads 120 MG Oral Capsule Extended Release 24 Hour (Cardizem CD)Indications:PAF (paroxysmal atrial fibrillation) (HCC) Take 1 Capsule by mouth daily. In the evening. 90 Capsule 3 03/15/20 24 3:40 PM EST 023 Active Meclizine HCl 25 MG Oral Tablet (Antivert) Take 1-2 tablets by mouth 3 times a day as needed for dizziness. 540 Tablet 1 02/22/20 24 9:05 AM EDT 024 Active Omeprazole 40 MG Oral Capsule Delayed Release (PriLOSEC) Take 1 Capsule by mouth in the morning. 90 Capsule 1 02/29/20 24 9:52 AM EDT 024 Active Ondansetron HCl 4 MG Oral Tablet (Zofran)Indication s:Nausea Take 1 Tablet by mouth every 8 hours as needed for Nausea. 20 Tablet 024 Active Sodium Hyaluronate 60 MG/3ML Intra-articular Prefilled Syringe (Durolane) Inject contents of prefilled syringe into the right knee one time. 3 mL 02/15/20 3:35 PM EDT 024 Active Olopatadine HCl 0.6 % Nasal SolutionIndication s:Phlegm in throat,Vertigo Administer 2 Sprays into nostril in the morning and 2 Sprays before bedtime. 30 g 1 024 Active Famciclovir 250 MG Oral Tablet (Famvir)Indication s:Herpes simplex of female genitalia Take 1 Tablet by mouth in the morning. 90 Tablet 1 02/10/20 24 6:15 PM EDT 024 Active Lisinopril 10 MG Oral Tablet (Prinivil)Indicati ons:Essential hypertension with goal blood pressure less than 140/90 Take 2 Tablets by mouth in the morning. 180 Tablet 3 02/22/20 24 6:37 PM EDT 024 Active Montelukast Sodium 10 MG Oral Tablet (Singulair)Indicat ions:RUDOLPH (dyspnea on exertion),Phlegm in throat TAKE 1 TABLET BY MOUTH EVERYDAY AT BEDTIME 90 Tablet 1 Active Nitroglycerin 0.4 MG Sublingual Tablet Sublingual (Nitrostat) Place 1 Tablet under the tongue as needed for chest pain. May repeat 3 times. If chest pain continues, call 911. 25 Tablet 11 03/15/20 3:40 PM EST Active rOPINIRole HCl 0.25 MG Oral Tablet (Requip) Take 1 Tablet by mouth in the morning and 1 Tablet at noon and 1 Tablet before bedtime. take With food. 90 Tablet 11 03/15/20 3:40 PM EST Active Amoxicillin-Pot Clavulanate 875-125 MG Oral Tablet (Augmentin)Indicat ions:Acute cystitis without hematuria Take 1 Tablet by mouth in the morning and 1 Tablet before bedtime. 20 Tablet Active Fluconazole 150 MG Oral Tablet (Diflucan)Indicati ons:Acute cystitis without hematuria Take one tab every 3 days while on antibiotic 4 Tablet Active Albuterol Sulfate HFA 108 (90 Base) MCG/ACT Inhalation Aerosol Solution Inhale 2 Puffs by mouth every 6 hours as needed for stomach irritation. 20.1 g Active Azithromycin 250 MG Oral Tablet (Zithromax Z-Hal) Take two tablets by mouth on first day, then 1 tablet daily until gone 6 Tablet Active Ondansetron HCl 4 MG Oral Tablet Take 1 Tablet by mouth every 8 hours as needed for nausea. 20 Tablet 04/30/20 11:36 AM EST Active Senna 8.6 MG Oral Tablet Take 1 Tablet by mouth daily as needed for Constipation for up to 1 dose. 14 Tablet 04/30/20 11:36 AM EST Active Simethicone 80 MG Oral Tablet Chewable (Mylicon) Chew and swallow 1 Tablet by mouth as needed for gas. 30 Tablet 04/30/20 11:36 AM EST Active traMADol HCl 50 MG Oral Tablet (Ultram) Take 1 tablet by mouth every 6 hours as needed for moderate to severe pain. 20 Tablet 04/30/20 11:36 AM EST Active Gabapentin 100 MG Oral Capsule (Neurontin)Indicat ions:Lumbar radicular pain Take 2 Capsules by mouth in the morning and 2 Capsules at noon and 2 Capsules before bedtime. 540 Capsule 02/07/20 6:33 AM EDT 2023 Discontinued(R efill) oxyCODONE HCl 5 MG Oral Tablet (Oxy IR) Take 1 Tablet by mouth every 6 hours as needed for moderate or severe pain 20 Tablet 2023 Discontinued documented as of this encounter (statuses as of 05/01/2024) Active Problems Problem Noted Date Diagnosed Date Endometrial cancer 03/28/2024 Chronic obstructive pulmonary disease 01/27/2024 [place] [...] as of this encounter (statuses as of 05/01/2024) Resolved Problems Problem Noted Date Diagnosed Date [...] as of this encounter (statuses as of 05/01/2024) Immunizations Name Administration Dates Next Due Pneumococcal Conjugate Vacci ne, 20-valent ([id number]) 04/08/2023 Pneumococcal Polysaccharide PPV23 (Pneumovax) 03/20/2016 Seasonal [...] 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, 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 Not on file Travel History Travel Start Travel End [place] 04/08/2024 04/14/2024 documented as of this encounter Last Filed Vital Signs Vital Sign Reading Time Taken Comments Blood Pressure 117/81 04/30/2024 12:00 PM EST Pulse 76 04/30/2024 12:00 PM EST Temperature 36 C (96.8 F) 04/30/2024 9:02 AM EST Respiratory Rate 17 04/30/2024 12:0 0 PM EST Oxygen Saturation 92% 04/30/2024 12: 00 PM EST Inhaled Oxygen Concentration - - Weight 103.7 kg (228 lb 11.2 oz) 04/30/2024 5:38 AM EST Height 157.5 cm (5' 2") 04/30/2024 5:38 AM EST Body Mass Index 41.83 04/30/2024 5:38 AM EST documented in this encounter Discharge Instructions * Discharge Instr - AVS* Nara Espinoza PA-C - 04/30/2024 9:09 AM EST Discharge Date: 04/30/2024 Check your Patient Education Brochure for further information. You may call [phone] between the hours of 7:00 a.m. - 8:00 p.m. for the first 24 hours. After the initial 24 hours, please contact your physician. [facility] office phone number is [phone]. After 5:00 p.m. or on the weekend, call [phone] and ask for the physician professional services manager. [facility] is available 24 hours a day at . The information below provides you with the instructions and the list of medications you need to betaking following discharge from the hospital. If you have any questions, please ask before leaving.Please carry this letter with you when you see your doctor in the clinic. If you have questions, you can reach us at the numbers above. Hospital Course: You were admitted on 04/30/2024 after a robotic assisted total laparoscopic hysterectomy with bilateral salpingo-oophorectomy and bilateral sentinel pelvic lymph node dissection. Yourecovered appropriately and were discharged on 04/30/2024. Your Doctors during this admission: Shekhar Belle MD, PhD Diet: Start with clear liquids (jello, tea, apple juice), avoid dairy products (milk, cheese, pudding, ice cream) and fried, greasy foods. Progress to prescribed diet as tolerated. You may eat and drink normally after gynecologic surgery. You may have a decreased appetite for thefirst few days after surgery; eating small, frequent meals or bland, well-cooked, soft foods may help. If nausea should occur, have clear liquids only until soft foods can be tolerated.Then progress to a regular diet, as tolerated However, if you are not able to eat or drink anything or if vomiting develops, call your health care provider Activity: A responsible adult must be with the patient for 24 hours after surgery. Rest today and tomorrow, and then increase activity as tolerated. DO NOT drive, operate any appliances and/or machinery or sign legal documents for 24 hours. Control of Pain: 1. Luxm-mzw-bueodhg Tylenol 325 mg, take 2 tablets by mouth every 6 hours as needed for pain 2. Ibuprofen 600mg, take 1 tablet by mouth every 6 hours as needed 3. Oxycodone 5 mg, take 1-2 tablets by mouth every 4 hours as needed for moderate to severe pain For the best pain control, alternate Ibuprofen and Tylenol so that you are taking 1 medication every 3 hours (ex: If you take Tylenol at 12:00 PM, take Ibuprofen at 3:00 PM, and at 6:00 PM, you will be due for your next dose of Tylenol, etc). Use pain medications as needed, not by the clock. Other medications: 4. Simethicone 80 mg, take 1 tablet by mouth every 6 hours as needed for gas pain 5. Senokot 8.6 mg, take 1 tablet by mouth daily until having a normal bowel movement frequency 6. Zofran 4 mg, Take 1 tablet by mouth every 8 hours as needed for post op nausea These prescription were sent to your pharmacy of choice Warnings: Call your surgeon promptly in case of: A. Excessive bleeding B. Fever greater than 101 degrees F (38.3 degrees centigrade) C. Persistent nausea and vomiting D. Redness, swelling or pus-like drainage E. Pain that is not relieved by the medicine you were told to take Special Instructions: A. You may have vaginal bleeding that requires a pad. If your bleeding saturates more than 1 heavy pad per hour, please notify your physician. B. Maintain pelvic rest (nothing in the vagina - no douching, tampons, or sexual intercourse) and do not soak your bottom in any bodies of water (bathtub, swimming pool, ocean, ect.) for at least 6 weeks. C. No strenuous activity or heavy lifting (greater than 10 pounds) for 6 weeks. D. You may experience pain in your shoulders, which is common after laparoscopic procedures. This may be relieved with pain medication, walking, or ygix-oqz-bupvswd simethicone. E. You may have vaginal discharge from the procedure that is brown, black, bains, or yellow. This isnormal after the procedure you had. If you notice a foul odor or develop a fever, please notify your physician. F. You have 5 abdominal incisions which were closed with suture and Dermabond (skin glue). The sutures and Dermabond will dissolve on their own. You may shower in 24 hours. Do not scrub incisions. Pat dry. Keep clean and dry. G. Please follow up with Dr. Belle in 2-3 weeks for your first post operative exam as previouslyscheduled on 05/15/2024. Please call our office if you have any issues with this. [facility] office number [phone] More At Home Instructions: It is normal to feel tired for a day or two after surgery, especially if general anesthesia was used. If you have a major surgery, you may feel tired for longer. Taking a few short naps during the day or resting when you are tired may help. While rest is important, it is also important to walk around several times per day, starting on theday of surgery.You can walk outside, but remember, you have to walk back so pace yourself. You haverisk for DVT (blood clot in legs) for up to a month after major abdominal surgery, so you need to increase walking every day. 3. Following discharge, you can do gentle stretching exercise, but no strenuous exercise. 4. You can go up and down stairs but you must use the hand railing. Initially use both feet on eachstep, until comfortable with going up and down stairs. 5. You can't drive until you are off all narcotics for 1 full week and dinora walk normally and firmlyapply the brake without pain. 6. You should shower daily or take a sponge bath. 7. You can ride in a car with a seat belt. 8. Please take all pain medication with food to prevent stomach irritation. 9. Please try to avoid constipation. Constipation can be made worse by narcotic pain medications. We recommend taking colace Senokot 1 tablet by mouth daily until normal bowel movement frequency upondischarge. If no results in 2 days, please add Miralax or Milk of Magnesia. Once the bowels begin to move, you may want to continue using a stool softener [Colace]) or a non-stimulant laxative (eg, MiraLAX/GlycoLax) on a daily basis to keep the stools soft. This treatment may be taken for as long as needed. If still no results, please contact our office for further instructions. If you are havingdiarrhea, please stop taking these agents. These agents are all available cvla-pex-xjqhqng and without a prescription. 10. You may experience pain in your shoulders, which is common after laparoscopic procedures. This may be relieved with pain medication, walking, or uber-ert-cnxpsrs simethicone. Date you may return to work or school: As previously discussed with Dr. Belle See your primary care physician (Rosy Cummins PA-C) as regularly scheduled. Return appointment(s) have been scheduled with the following health care providers - this list includes only future [facility] appointments. You or your provider may have requested [facility] that are being finalized. These will be forwarded to you later. If you do not receivea call about these appointments within one week of your discharge, please call . Appointments with non-[facility] healthcare providers may not be listed below. If you feel suicidal or homicidal, please call the crisis hotline at [phone] ([phone]). documented in this encounter Progress Notes * Nara Espinoza PA-C - 04/30/2024 9:07 AM EST [facility] [place] [address] [facility] [address] OUTPATIENT SURGERY DISCHARGE SUMMARY NOTE Name: Kateryna Ortez Location: [place] [facility] Date: 04/30/2024 Time: 9:08 AM Surgery Date: 04/30/2024 Procedure: 1) exam under anesthesia 2) robotic assisted total laparoscopic hysterectomy with bilateral salpingo- oophorectomy for uterusless than 250 g, CPT code 78540 3) bilateral sentinel pelvic lymph node dissection, CPT code 50173 Surgeon: Shekhar Belle MD, PhD Nara Espinoza PA-C Discharge Diagnosis: Undifferentiated endometrial cancer, BMI of 41 After examination of this patient, I have determined she is ready for discharge to home when the patient meets criteria. Discharge instructions were given to the patient. Nara Espinoza PA-C Gynecologic Oncology 04/30/2024 Cosigned by Shekhar Belle MD at 04/30/2024 9:15 AM EST documented in this encounter H&P Notes * Nara Espinoza PA-C - 04/30/2024 6:45 AM EST HISTORY & PHYSICAL INTERVAL NOTE [facility] [address] History and Physical Update: Name: Kateryna Ortez Location[place] [facility] Date: 04/30/2024 Time: 6:46 AM DATE OF HISTORY AND PHYSICAL: 04/18/2024 BP: 142 mmHg/82 mmHg (04/30/24557) Pulse: 73 (04/30/24557) Resp: 19 (04/30/24557) Temp: 36.5 C (04/30/24557) Temp Summary: Temp Min: 36.5 C (97.7 F) Max: 36.5 C (97.7 F) SpO2: 95 % (04/30/24557) O2 flow rate: Supplemental O2 Delivery: Room Air, None (04/30/24557) Does patient take a beta kam? No Did patient stop anticoagulants? None Heart Exam: regular rate and rhythm, no murmurs or gallops Lung Exam: clear to auscultation bilaterally Other Pertinent Physical Exam: none I have reviewed the H&P previously performed and examined the patient today. There are no new findings noted. Nara Espinoza PA-C Gynecologic Oncology 04/30/2024 Cosigned by Shekhar Belle MD at 04/30/2024 6:49 AM EST * Shekhar Belle MD - 04/24/2024 8:47 AM EST H&P completed by Dr. Shekhar Belle MD, PhD on 04/18/2024: "CC: 69 year old female who presents today for evaluation of undifferentiated uterine carcinoma. HPI: Kateryna Ortez is a 69 year old who is seen in consultation at the request of Jefe Lagunas MD.She is referred for my evaluation and recommendations regarding management of undifferentiated uterine carcinoma. The patient presented to her referring physician with a chief complaint of postmenopausal bleeding.An endometrial biopsy was performed on March 02, 2024 which showed an undifferentiated carcinoma.Patient then had a CT scan of the chest abdomen and pelvis which did not show metastatic disease. Of note, CA 125, CEA and CA 19 9 were normal. The patient does report in all 100 off history of postmenopausal bleeding since November of 2022. Patient denies any history of hormone replacement therapy. Patient does state a history of abnormal Pap smears but does not exactly know the results. Today she returns with no complaints. Her appetite is good, weight is stable, energy level is baseline for her. She denies change in bowel or bladder habits, increasing abdominal girth, early satiety, bloating, lower back pain, flank pain, sciatica, lower leg edema, vaginal bleeding or discharge. Her work-up included: 03/02/2024 Endometrial curetting: Undifferentiated carcinoma 04/04/2024 CT chest, abdomen and pelvis IMPRESSION 1. Heterogeneous thickening of the endometrium compatible with malignancy. 2. No evidence of metastatic disease in the chest, abdomen, or pelvis. 3. Unchanged indeterminate left renal mass (1.2 cm). This can be further evaluated with renal protocol MRI. Ca 125: 13.3 CEA: 2.3 Ca 19-9: 25.1 PAST [facility] HISTORY: Menstrual Status: postmenopausal Pap smear history: yes, February 2024 Hormone Use: No Urinary or fecal issues: Denies PAST OB HISTORY: , spontaneous vaginal delivery x2 HEALTH MAINTENANCE: Mammogram: 11/09/2023 ; BI-RADS category 1 Last Pap: February 2024 Colonoscopy: 07/27/2016 ; Follow-up in 10 years Past Surgical History Past Surgical History: Procedure Laterality Date CARPAL TUNNEL SURGERY Bilateral COLONOSCOPY, DIAGNOSTIC (RECTUM) 07/27/2016 diverticulosis, repeat 5 yrs/[facility] EGD, FLEXIBLE, DIAGNOSTIC 09/10/2014 Schatzki ring, normal bx/[facility] EGD, FLEXIBLE, DIAGNOSTIC 07/27/2016 normal bx/[facility] ELECTROPHYSIOLOGY EVAL, ATRIAL FIB, PULMONARY VEIN ISOL Bilateral 11/18/2016 ELECTROPHYSIOLOGY EVAL, ATRIAL FIB, PULMONARY VEIN ISOL performed by Denisha Ramirez IV, MD at [facility] [place]OT/TOE SURGERY NEC 10 surgeries total, cow stepped on her foot INFORMATION 12/24/2014 Loop Recorder: [employer] Reveal Linq model# [id number] INJECT DX/THER SUBSTANCE INTERLAMINAR LUMBAR/SACRAL W IMAGE GUIDE 12/13/2022 INJECTION SPINE LUMBAR OR SACRAL performed by Twin Maharaj DO at OR [facility] INJECT DX/THER SUBSTANCE INTERLAMINAR LUMBAR/SACRAL W IMAGE GUIDE 06/01/2023 INJECTION SPINE LUMBAR OR SACRAL performed by Twin Maharaj DO at OR [facility] LAPAROSCOPY; CHOLECYSTECTOMY 06/21/2022 at [facility] by Dr Joyce LIGATE/CUT OVIDUCT(S) Tubal Ligation REMOVE CATARACT, INSERT LENS PROSTH Left 12/18/2019 left EXTRACAPSULAR CATARACT REMOVAL WITH INTRAOCULAR LENS performed by Azam Boo MD at [facility] REMOVE CATARACT, INSERT LENS PROSTH Right 12/31/2019 right EXTRACAPSULAR CATARACT REMOVAL WITH INTRAOCULAR LENS performed by Azam Boo MD at [facility] REPAIR RUPTURED ROTATOR CUFF, ACUTE Past Medical History Past Medical History: Diagnosis Date Allergic rhinitis Backache Calculus of kidney 1975 Depressive disorder, not elsewhere classified 1998 Dyspnea and respiratory abnormality 08/06/2002 ICD-10 update of inactive term HTN, goal below 140/90 05/21/2016 Migraine with aura Morbid obesity with BMI of 40.0-44.9, adult ([facility]) 04/14/2018 [place] on CPAP 10/12/2016 PAT (paroxysmal atrial tachycardia) ([facility]) 04/14/2018 Pericarditis, chronic 02/11/2017 Rectocele 04/14/2018 S/P ablation of atrial fibrillation 11/19/2016 Sleep apnea, obstructive Stress incontinence 04/14/2018 Urinary incontinence, urge 04/14/2018 Problem List Patient Active Problem List Diagnosis Allergic rhinitis Back disorder Dyspnea and respiratory abnormality Chronic chest pain Snoring HTN, goal below 140/90 [place] on CPAP S/P ablation of atrial fibrillation Pericarditis, chronic Advanced directives, counseling/discussion Rectocele Stress incontinence PAT (paroxysmal atrial tachycardia) ([facility]) Routine cultures positive for HSV2 Hyperlipidemia with target LDL less than 100 Body mass index (BMI) 40.0-44.9, adult ([facility]) Prediabetes Chronic obstructive pulmonary disease ([facility]) [place] (myocardial infarction) Endometrial cancer ([facility]) Current Medications Current Outpatient Medications Medication Sig Dispense Refill Multiple Vitamins-Minerals (DAILY MULTIVITAMIN) CAPS Take 1 Capsule by mouth every evening. Zinc 25 MG TABS Take 1 Tablet by mouth every morning. ibuprofen (MOTRIN) 200 MG Tablet Take 2 Tablets by mouth in the morning and 2 Tablets before bedtime. CPAP every night at bedtime . oxygen IN GAS Use as directed 2 L/min(Oxygen) at bedtime . 2.5 Levocetirizine Dihydrochloride 5 MG Oral Tablet Take 1 Tablet by mouth every evening. Qvar RediHaler 80 MCG/ACT Inhalation Aerosol Breath Activated (Beclomethasone Diprop HFA) Inhale 2 Puffs by mouth in the morning and 2 Puffs before bedtime. 3 Each 3 guaiFENesin ER 600 MG Oral Tablet Extended Release 12 Hour Take 1 Tablet by mouth in the morning. hydroCHLOROthiazide 25 MG Oral Tablet (Hydrodiuril) Take 1 Tablet by mouth in the morning. (Patienttaking differently: Take 0.5 Tablets by mouth in the morning.) 90 Tablet 3 Clobetasol Propionate 0.05 % External Cream (Temovate) Apply topically to affected area daily. To affected area 15 g 1 Magnesium 400 MG Oral Tablet Take by mouth. At bedtime busPIRone HCl 15 MG Oral Tablet (Buspar) Oneh pili to one whole tab by mouth up to three times a dayas needed for nerves (Patient not taking: Reported on 03/14/2024) 20 Tablet 0 dilTIAZem HCl ER Coated Beads 120 MG Oral Capsule Extended Release 24 Hour (Cardizem CD) Take 1 Capsule by mouth daily. In the evening. 90 Capsule 3 Meclizine HCl 25 MG Oral Tablet (Antivert) Take 1-2 tablets by mouth 3 times a day as needed for dizziness. 540 Tablet 1 Omeprazole 40 MG Oral Capsule Delayed Release (PriLOSEC) Take 1 Capsule by mouth in the morning. 90Capsule 1 Ondansetron HCl 4 MG Oral Tablet (Zofran) Take 1 Tablet by mouth every 8 hours as needed for Nausea. 20 Tablet 0 Gabapentin 100 MG Oral Capsule (Neurontin) Take 2 Capsules by mouth in the morning and 2 Capsules at noon and 2 Capsules before bedtime. 540 Capsule 0 Sodium Hyaluronate 60 MG/3ML Intra-articular Prefilled Syringe (Durolane) Inject contents of prefilled syringe into the right knee one time. 3 mL 0 Olopatadine HCl 0.6 % Nasal Solution Administer 2 Sprays into nostril in the morning and 2 Sprays before bedtime. 30 g 1 Famciclovir 250 MG Oral Tablet (Famvir) Take 1 Tablet by mouth in the morning. 90 Tablet 1 Lisinopril 10 MG Oral Tablet (Prinivil) Take 2 Tablets by mouth in the morning. 180 Tablet 3 Montelukast Sodium 10 MG Oral Tablet (Singulair) TAKE 1 TABLET BY MOUTH EVERYDAY AT BEDTIME 90 Tablet 1 Nitroglycerin 0.4 MG Sublingual Tablet Sublingual (Nitrostat) Place 1 Tablet under the tongue as needed for chest pain. May repeat 3 times. If chest pain continues, call 911. 25 Tablet 11 rOPINIRole HCl 0.25 MG Oral Tablet (Requip) Take 1 Tablet by mouth in the morning and 1 Tablet at noon and 1 Tablet before bedtime. take With food. 90 Tablet 11 Amoxicillin-Pot Clavulanate 875-125 MG Oral Tablet (Augmentin) Take 1 Tablet by mouth in the morning and 1 Tablet before bedtime. 20 Tablet 0 Fluconazole 150 MG Oral Tablet (Diflucan) Take one tab every 3 days while on antibiotic 4 Tablet 0 Albuterol Sulfate HFA 108 (90 Base) MCG/ACT Inhalation Aerosol Solution Inhale 2 Puffs by mouth every 6 hours as needed for stomach irritation. 20.1 g 0 Current Facility-Administered Medications Medication Dose Route Frequency Provider Last Rate Last Admin Vitamin B-12 (Cyanocobalamin) inj 1,000 mcg 1,000 mcg Intramuscular Q4 Weeks 1,000 mcg at 03/14/24 1056 Allergies Review of patient's allergies indicates: Allergen Reactions Astelin [Azelastine] Nausea/vomiting Cetirizine Other (Please comment) headache Latex Rash Metoprolol Unknown Sulfa Antibiotics bactrim only-itching afater 1 week Tartaric Acid Unknown Valtrex [Valacyclovir] Renal calculi Review of Systems Review of Systems Constitutional: Negative. HENT: Negative. Eyes: Negative. Respiratory: Negative. Cardiovascular: Negative. Gastrointestinal: Negative. Endocrine: Negative. Genitourinary: Negative. Musculoskeletal: Negative. Skin: Negative. Allergic/Immunologic: Negative. Neurological: Negative. Hematological: Negative. Psychiatric/Behavioral: Negative. 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 Tobacco Use Smoking status: Never Passive exposure: Current Smokeless tobacco: Never Vaping Use Vaping status: Never Used Substance and Sexual Activity Alcohol use: Yes Comment: occational glass of wine Drug use: No Sexual activity: Not Currently Partners: Male control/protection: Surgical Comment: tl Family History Family History Problem Relation Name Age of Onset Heart Disorder Mother Diabetes Mother Arthritis Mother rheumatoid arthritis Diabetes Sister Neurological Disorder Brother Multiple sclerosis Cancer Grandmother (Maternal) rectal cancer Breast Cancer No significant family history ECOG Performance Scale: 1 PHYSICAL EXAM: BP 172/90 (BP Site: Left Arm, BP Position: Sitting, BP Cuff Size: Regular) | Wt 101.6 kg (224 lb) |LMP 06/06/2006 | BMI 40.97 kg/m | BSA 2.11 m General: well developed woman in no acute distress. Alert and oriented x 3, appropriate mood and affect Neck: supple, no thyromegaly, no cervical lymphadenopathy, no nodularity No palpable supraclavicular lymph nodes Lungs: clear to auscultation bilaterally, unlabored respiratory effort, equal chest rise bilaterally CV: normal rate and rhythm, no murmur or gallop Breasts: Deferred Abdomen: soft, bowel sounds present in all quadrants, non-tender, no rebound tenderness, non-distended, no palpable masses No CVA tenderness No inguinal lymphadenopathy Pelvic exam: Deferred Neuro: grossly intact, fluent speech, attentive Skin: warm, dry, no worrisome lesions [employer]en[employer] Architect Documentation Patient offered superintendent warehouse and accepted. Name of superintendent warehouse: N/A IMPRESSION: Undifferentiated uterine carcinoma MANAGEMENT: Today, patient signed informed consent for robotic assisted total laparoscopic hysterectomy, bilateral salpingo-oophorectomy, possible staging, possible exploratory laparotomy and any other indicatedprocedures. The patient was counseled concerning the risks involving surgery. These risks include pain, scarring, bleeding, infection, breathing problems, heart attack, stroke, injury to surrounding tissues or organs (bladder, bowel, ureters, major blood vessels, major nerves and any other nearby structures) and even the potential for . The patient understands that additional risks may be encountered if surgery is technically difficult secondary to comorbidities or adhesions. This would include all patients with intra-abdominal meshplacement for hernia repair. These risks include failure to complete the intended procedure as wellas an increased risk for returning to the operating room for complications including bleeding and damage to nearby organs such as bowel or bladder perforation. The patient exhibited understanding of these risks and elected to proceed with surgery. I spent a total of Greater than 55 mins (exact time 92 mins) on the date of service in preparation,delivery, and documentation of the care provided to Kateryna Ortez excluding any time spent in the performance of separately billed services or time spent by another provider/QHP. Shekhar Belle MD, PhD, FACOG, FACS Chief, Gynecologic Oncology [facility] Attendant of Obstetrics and Gynecology [facility]" Will addend on day of surgery. Nara Espinoza PA-C Gynecologic Oncology 04/24/2024 I have reviewed the history and physical exam and there are no changes. Shekhar Belle MD, PhD, FACOG, FACS Chief, Gynecologic Oncology [facility] Attendant of Obstetrics and Gynecology [facility] documented in this encounter Nursing Notes * Nevaeh, Yvette D, RN - 04/30/2024 12:35 PM EST Pt oxygen saturation in low 90s on room air. Dr. Johnson paged and made aware. Duoneb treatment given per order. Pt O2 sats improved to low to mid 90s. Pt c/o shivering/shaking. Dr. Mejia Johnson paged and made aware. Glucose check was 160. Okay to discharge pt per Dr. Johnson. Pt instructed to report to ER for any changes or difficulty breathing. * Yvette Herring RN - 04/30/2024 10:25 AM EST Dual Licensed Skin Assessment completed by irving and Chelsy Acevedo RN. The patient is/has a N/A Skin Breakdown (includes non blanchable erythema): Yes - Surgical/Procedural changes only. * Emily Cui RN - 04/30/2024 5:56 AM EST Dual Licensed Skin Assessment completed by irving and Samantha ESPAÑA. The patient is/has a N/A Skin Breakdown (includes non blanchable erythema): No * Hannah Blandon RN - 04/27/2024 7:02 AM EST Presurgery instructions sent to patient via Dragonfly message. Did not call. Pre-operative chart review completed. NO ANESTHESIA EVAL REQUESTED PER CASE DOCUMENTATION. PREOP PATIENT INFORMATION AND EDUCATION: MEDICATION INSTRUCTIONS: The day of surgery/procedure, you may TAKE the following medications with a sip of water up to 2 hours prior to your arrival time: Famciclovir Gabapentin Ondansetron if needed Omeprazole Meclizine if needed Buspirone Diltiazem Use Qvar Use Albuterol inhaler if needed, please bring to the hospital with you STOP taking the following medications the noted number of days prior to surgery/procedure unless otherwise specified by your surgeon: Please follow surgeon's instructions regarding use of Aspirin, Coumadin, Plavix, Eliquis, and any other blood thinner including NSAIDs (non-steroidal anti- inflammatory drugs, eg, Advil, Ibuprofen, Motrin, Aleve, Naproxen); if you have any questions regarding your anticoagulation therapy please contact your surgeon's clinic. Please verify any proposed stoppage of your anticoagulation therapy with the agent's prescribing provider. 10 days prior to surgery/procedure Stop all Herbal supplements, Green Tea, Turmeric, Melatonin, CBD, THC, etc. Stop all Vitamins (including Vitamin E) 24 hours prior to surgery/procedure DO NOT consume any alcohol. DO NOT use medical marijuana. DO NOT smoke or use tobacco products of any kind after midnight prior to surgery. *Using any of these products may increase your risks of procedural complications. IF IT IS LESS THAN RECOMMENDED STOPPAGE TIME PLEASE STOP AT TIME OF NOTIFICATION. FASTING RECOMMENDATIONS: To reduce risk, it is important for all elective surgery patients to follow the specific fasting guidelines listed below. If you have received more stringent guidelines, please follow the MOST RESTRICTIVE guidelines that you have been provided. DO NOT EAT after midnight on the night prior to your surgery date. You are allowed to drink clear liquids up to two hours prior to arrival time to the hospital or surgery center. Examples of clear liquids include water, clear fruit juice without pulp, clear carbonated beverages, clear tea, and black coffee. Any drinks given by your surgical service take as directed. THE DAY BEFORE YOUR SURGERY: -Drink plenty of fluid the day before your surgery. Contact your surgeon's office if you develop any of the following within 2 weeks of surgery: A cold Infection Fever Shingles Chicken pox or exposure to chicken pox Open areas such as scrapes, cuts, scott or other skin conditions Rashes GENERAL INSTRUCTIONS FOR PREPARING FOR SURGERY: BATHING INSTRUCTIONS: Bathe the evening prior to and the morning of surgery/procedure. Cleanse your body using ONLY anti-bacterial soap (eg, Dial, Safeguard) or any specific soap/cleansers and instructions provided by your surgeon (eg, Chlorhexidine). -You should brush your teeth the morning of surgery. Do NOT apply any lotions, powders, sprays, creams, oils, make-up, or deodorants after bathing. No hairspray, or nail honduran on fingers or toes. Day of surgery/procedure do not use tampons. If you wear contacts wear your eyeglasses if available otherwise bring your contact supplies with you to remove them prior to your surgery/procedure. If you wear glasses or dentures, please bring cases in which you can store them during your surgery. Please remove all piercings and jewelry and leave them at home. Wear comfortable and loose clothing. -Please leave all valuables at home. -If you use a CPAP and are staying overnight, please bring your mask and tubing with you to the hospital. -If you use an assistive mobility device (walker, cane, etc), please label it with your name and bring to hospital. -An escort tour driver is required if you are being discharged the same day of the surgery. You should have a responsible adult over the age of 18 [address] you home. This person should be present with youin the hospital at the time of discharge and for the first 24 hours after the surgery to support your needs. If you are taking a taxi home, you must have your responsible alliance party accompany you in the taxi ride home at the time of discharge. OR times subject to change. Please check voicemail messages the day/evening before your surgery forany updates. PRE-OP: You will be taken to the pre-op area where your vital signs (blood pressure, pulse and temperature)will be taken. Any preparations that need to be done will be done there. When it is time for your surgery, you will be taken to the operating room. PARENTS OF PEDIATRIC PATIENTS WILL BE ALLOWED TO STAY WITH THEIR CHILDREN UNTIL THEY ARE ESCORTED TO THE OPERATING ROOM OUTPATIENT SURGERY PATIENTS: After your surgery you will be taken to the Same Day Surgery Unit when you are awake and will go home from there. You will get instructions about your home care before you leave. Arrange to have someone drive you home from the hospital. You may not drive for 24 hours after anesthesia. You must havean adult stay with you at home for 24 hours after your operation. This is very important. If you are not able to comply with these guidelines, your Short Stay surgery cannot be done. ADMISSION PATIENTS: After your stay in the recovery area, you will be taken to your room. Your family may visit you in your room based on current visitation policy. If a next day discharge is expected, it is important to make arrangements for a tour driver to take you home. Please be aware our visitation policies are subject to change Professionals, attendants, caregivers or family members are allowable visitors for patients with intellectual, developmental or cognitive disabilities, communication barriers or behavioral concerns. Because patients' and families' needs vary, they will be taken into account when applying visitation restrictions. [facility]: Contact # [phone] Directions to Surgical Suite in from the [facility] Entrance The Surgical Waiting Room can be found in the Lobby of [facility]. Enter through Main Lobby Entrance and the Waiting Room is directly in front of you. Proceed to check in and give them your name. Directions to Surgical Suite from the East Entrance Enter the East entrance and follow the hallway to the J elevator. Take the J elevator up to Level 1. Continue down the long hallway to the main [facility] Lobby. The Surgical Waiting Room will be on your Right. Proceed to check in and give them your Name. Directions to Surgical Suite from the Parking Garage Enter the [facility] lobby and proceed down the ball to the left. At the end of the ball, turn right. Continue down the long hallway to the main [facility] Lobby. The Surgical Waiting Room will be on your Right. Proceed to check in and give them your Name. Hannah Blandon, MSN, RN [facility] 04/27/2024 documented in this encounter OR Notes * OR Surgeon - Shekhar Belle MD - 04/30/2024 6:21 AM EST OPERATIVE RECORD [address] [address] Kateryna Ortez [id number] SERVICE: GYNECOLOGIC ONCOLOGY 04/30/2024 PRE-OP DIAGNOSIS: Undifferentiated endometrial cancer, BMI of 41 POST-OP DIAGNOSIS: Same SURGEON: Dr. Shekhar Belle MD, PhD, FACOG, FACS ASSISTANTS: Nara Espinoza PA-C (no other qualified resident/cable splicer assistant available). My Counseling Services Director(s) was/were necessary throughout the procedure(s) for assistance with retraction, uterine manipulation as well as closure of the surgical incision site(s). Attestation: I understand that section 1842 (b)(7)(D) of the Social Security Act generally prohibits Medicare physician fee schedule payment for the services of [id number] in teaching hospitals when qualified residents are available to furnish such services. I certify that the services for which payment is claimed were medically necessary, and that no qualified resident was available to perform the services. I further understand that these services are subject to post-payment review by the Medicare carrier. ANESTHESIA: General endotracheal anesthesia. OPERATION: 1) exam under anesthesia 2) robotic assisted total laparoscopic hysterectomy with bilateral salpingo- oophorectomy for uterusless than 250 g, CPT code 17401 3) bilateral sentinel pelvic lymph node dissection, CPT code 74672 FINDINGS: 1) grossly normal-appearing cervix, uterus, bilateral fallopian tubes and ovaries 2) easily identifiable bilateral sentinel pelvic lymph nodes after injection of ICG dye 3) no suspicious lymph nodes or signs of extra uterine disease ESTIMATED BLOOD LOSS: 20 mL. DRAINS: Urinary Nails catheter. FLUIDS: 1000 mL of crystalloid. URINE OUTPUT: 50 mL of clear urine at the end of the case. SPECIMEN: Uterus, cervix, bilateral fallopian tubes and ovaries, pelvic washings, bilateral sentinel pelvic lymph node COMPLICATIONS: None. CONDITION: Stable. DISPOSITION: PACU. INDICATIONS AND HISTORY: The patient is delightful 69-year-old with endometrial cancer. She opted for definitive surgical management. DESCRIPTION OF OPERATION: The patient was taken to the operating room where she underwent general anesthesia without difficulty. A timeout and red rules were performed. She was then positioned in the dorsal supine position with legs in yellowfin stirrups. Care was taken not to place any undue tension on the hips knees or ankles. The patient was then tested in steep Trendelenburg position and the position was found to be adequate. An exam under anesthesia was performed revealing the findings as above. She was then prepped and draped in the usual sterile fashion. A Nails catheter was inserted transurethrally to drain the bladder. Indocyanine Green (ICG) dye was injected at the 3 and 9 o'clock position on the cervix (3 cc per side) for anticipated sentinel pelvic lymph node dissection. The uterinemanipulating device was inserted through the vagina into the uterus and properly seated. Attention was then turned to the abdomen where a left upper quadrant incision was made with a scalpel approximately 2 fingerbreadths beneath the rib cage. The abdominal cavity was then entered using an Optiview port under direct visualization. The camera port was then placed above the umbilicus. 3 accessory ports were placed laterally under direct visualization. Careful attention was paid to avoid the inferior epigastric vessels. The robot was then docked into place. Laparoscopic instruments were then inserted and the surgery commenced at the console. Pelvic washings were obtained and sent for cytology. Attention was then drawn to the hysterectomy portion of the case. The right round ligament was grasped, ligated, and transected with the use of cautery. The broad ligament was then opened posteriorlydown the line of Toldt, entering the retroperitoneal space. Dissection continued into the retroperitoneal space and the paravesical space was developed. Once the ureter had been identified and noted to be well outside of the operative field, a window was made in the mesosalpinx beneath the infundibulopelvic ligament on the right side. The infundibulopelvic ligament was then ligated and transected. Once the ureter was again identified, the mesosalpinx was dissected out to the level of the isthmus of the uterus.The parametrial space was kept along the specimen during the dissection. Attention was then drawn to the patient's left side where the same dissection process was carried out. With both ovaries freed, attention was then turned towards the bladder flap, where some of the peritoneum on the bladder was carefully dissected off and the bladder flap was then created with the use of robotic scissors. The uterine arteries were then skeletonized bilaterally and then were ligated with useof the bipolar cautery at the 3:00 and 9:00 positions at the level of the Melony ring. Once complete ligation was ascertained, the anterior colpotomy was made. The uterus was then anteverted and a posterior colpotomy was made. Once the colpotomy was completed on both sides, the uterus, cervix, ovaries, and fallopian tubes were able to be delivered through the vagina without difficulty. At this time attention was turned towards the sentinel pelvic lymph node dissection. After previousinjection of 3 cc of ICG dye, sentinel pelvic lymph nodes were easily identified bilaterally. Theselymph nodes were removed with a combination of blunt and sharp dissection. The specimens were easily removed through the vagina and sent for permanent pathology. At this time attention was then drawn to closure of the vaginal cuff. The vaginal cuff was then closed anteriorly and posteriorly with a running stitch of 2-0 Stratafix.The pelvis was then copiously irrigated. Excellent hemostasis was noted. All instruments were removed from the vagina and the abdomen. The robot was then undocked. The robotic camera was used to visualize removal of all ports. All port sites were noted to be hemostatic. Pneumoperitoneum was allowed to escape the abdomen. The port sites were closed with a deep suture of Vicryl followed by Monocryl in a subcuticular fashion. Steri-Strips and Mastisol were applied to thesites followed by small bandages. The Nails catheter was then removed. The patient awoke from general anesthesia without difficulty after being placed back into the supine position. She then proceeded to the recovery room in stable condition. I was present for the entire procedure. Shekhar Belle MD, PhD, FACOG, FACS Chief, Gynecologic Oncology [facility] Attendant of Obstetrics and Gynecology [facility] documented in this encounter Plan of Treatment Upcoming Encounters Date Type Department Care Team (Late st Contact Info) Description 05/15/2024 11:00 AM EST Office Visit Gynecology/Oncology, [facility] [address] [place] [address] Shekhar Belle MD [address] [place] [address] 05/17/2024 1:00 PM EST Office Visit Allergy/Immunology [facility] [place] [address] [facility] [place] [address] Carlo Arambula MD [address] [facility] [place] [address] 06/04/2024 11:30 AM EST [facility] [address] [place] [address] Trino Mills CRNP [address] [place] [address] 06/11/2024 10:30 AM EST Office Visit Gynecology/Oncology, [facility] [address] [place] [address] Дмитрий Love PA-C [address] [place] [address] 08/01/2024 10:15 AM EDT Office Visit Orthopaedics [facility] [address] [place] [address] Salinas Levine PA-C [address] [place] [address] 09/17/2024 11:30 AM EDT Office Visit Cardiology, [facility] [address] [place] [address] Rashaun Felix MD [address] [facility] [place] [address] Pending Results Name Type Priority Associated Diagnoses Date /Time CYTOLOGY Pathology Routine Endometrial cancer (HCC) 04/30/2024 7:46 AM EST SURGICAL PATHOLOGY Pathology Routine Endometrial cancer (HCC) 04/30/2024 7:54 AM EST Scheduled Orders Name Type Priority Associated Diagnoses Orde r Schedule CYTOLOGY Pathology Routine Endometrial cancer (HCC) Release Upon Ordering for 1 Occurrences starting 04/30/2024, 1 completed SURGICAL PATHOLOGY Pathology Routine Endometrial cancer (HCC) Release Upon Ordering for 1 Occurrences starting 04/30/2024, 1 completed Scheduled Procedures Name Priority Associated Diagnoses Date/Ti [...] this encounter Medical Devices Implanted Type Area Cat Skinner Device Identifier Shelf Expiration Date Model / Serial / Lot Lens Intraoc 11.5 - [id number] - [id number] Implanted:Qty: 1 on 12/18/2019 by Azam Boo MD at OR [facility] Left: Eye [employer] 10/06/2021 [id number] / [id number] / Lens Intraoc 11.5 - [id number] - [id number] Implanted:Qty: 1 on 12/31/2019 by Azam Boo MD at OR [facility] Right: Eye [employer] 07/06/2024 [id number] / [id number] / [id number] documented as of this encounter Procedures Procedure Name Priority Date/Time Associated Diagnosis Comments GLUCOSE METER, POINT OF CARE ARABELLA 04/30/2024 12:28 PM EST GLUCOSE METER, POINT OF CARE ARABELLA 04/30/2024 6:22 AM EST ABO/RH STAT 04/30/2024 6:14 AM EST Endometrial cancer (HCC) Preop testing TYPE AND SCREEN Routine 04/30/2024 6:14 AM EST Endometrial cancer (HCC) Preop testing documented in this encounter Results * (ABNORMAL) GLUCOSE METER, POINT OF CARE (04/30/2024 12:28 PM EST) Pathologist [facility] GLUCOSE - POCT 160(H) 70 - 120 mg/dL 04/30/2024 12:37 PM EST [facility] Blood Whole blood specimen / Unknown 04/30/2024 12:28 PM EST 04/30/2024 12:37 PM EST us Shekhar Belle MD LAB POINT OF CARE TEST DOCKED DEVICE UNSOLICITED RESULTS Final Result [facility] [address] [place] [address] * GLUCOSE METER, POINT OF CARE (04/30/2024 6:22 AM EST) [facility] GLUCOSE - POCT 102 70 - 120 mg/dL 04/30/2024 6:24 AM EST [facility] Blood Whole blood specimen / Unknown 04/30/2024 6:22 AM EST 04/30/2024 6:24 AM EST Shekhar Belle MD LAB POINT OF CARE TEST DOCKED DEVICE UNSOLICITED RESULTS Final Result Performing Organization Address City/[facility]/ZIP Co de Phone Number [facility] [address] [place] [address] * ABO/RH (04/30/2024 6:14 AM EST) ABO A 04/30/2024 7:46 AM EST LAB[facility]AT[facility] Rh Positive 04/30/2024 7:46 AM EST LABORATORY C BLOOD BANK Blood Venous blood specimen / Unknown Venipuncture / Unknown 04/30/2024 6:14 AM EST 04/30/2024 6:27 AM EST Nara Espinoza PA-C LAB BLOOD BANK TEST ORDERABLES Final Result Performing Organization Address [facility] de Phone Number LAB[facility]ATORY [facility] [address] [place] [address] * TYPE AND SCREEN (04/30/2024 6:14 AM EST) ABO A 04/30/2024 7:19 AM EST [facility] Rh Positive 04/30/2024 7:19 AM EST [facility] Red Blood Cell Antibody Screen Negative 04/30/2024 7:19 AM EST [facility] Specimen Expiration Date 05/03/2024 23:59 04/30/2024 7:19 AM EST [facility] Blood Venous blood specimen / Unknown Venipuncture / Unknown 04/30/2024 6:14 AM EST 04/30/2024 6:27 AM EST Nara Espinoza PA-C LAB BLOOD BANK TEST ORDERABLES Final Result Performing Organization Address City/[facility]/ZIP Co de Phone Number LABORATORY [facility] [address] [place] [address] documented in this encounter Visit Diagnoses Diagnosis Endometrial cancer (HCC)- Primary Malignant neoplasm of corpus uteri, except isthmus Endometrial cancer (HCC) Malignant neoplasm of corpus uteri, except isthmus Preop testing Preoperative examination, unspecified PAF (paroxysmal atrial fibrillation) (HCC) Atrial fibrillation documented in this encounter Administered Medications Inactive Administered Medications - up to 3 most recent administrations Medication Order MAR Action Action Date Dose Rate Site Acetaminophen (Tylenol) tab 975 mg 975 mg, Oral, PREOP, First dose on Tue04/30/24 at 0630, Last dose on Tue04/30/24 at 0630, For 1 dose, Maximum 4 g acetaminophen/day. Avoid in patients with severe hepatic impairment or severe active liver disease. Administer 60 minutes prior to OR., Pre-Op Given 04/30/2024 6:15 AM EST 975 mg albuterol-ipratropium (Duoneb) inhalation solution 3 mL 3 mL, Nebulizer, RESPQID, First dose on Tue04/30/24 at 0800, Until Discontinued, 3 mL = 0.5 mg ipratropium/ 2.5 mg albuterol, Pre-Op Given 04/30/2024 6:54 AM EST 3 mL albuterol-ipratropium (Duoneb) inhalation solution 3 mL 3 mL, Nebulizer, RESPQID, First dose on Tue04/30/24 at 1200, Until Discontinued, 3 mL = 0.5 mg ipratropium/ 2.5 mg albuterol, PACU albuterol-ipratropium (Duoneb) inhalation solution 3 mL 3 mL, Nebulizer, ONCE, On Tue04/30/24 at 1230, For 1 dose, 3 mL = 0.5 mg ipratropium/ 2.5 mg albuterol, Post-op Given 04/30/2024 11:54 AM EST 3 mL check patch placement order Q8H, First dose on Tue04/30/24 at 0730, Until Discontinued, Routine, Scopolamine (TRANSDERM SCOP) patch placement check, Pre-Op chlorhexidine gluconate cloth 2 % pad 1 Pad 1 Pad, External, PREOP, First dose on Tue04/30/24 at 0630, Last dose on Tue04/30/24 at 0630, For 1 dose, Cleanse surgical site area immediately before transferring intra-op, Pre-Op Given 04/30/2024 6:15 AM EST 1 Pad fentaNYL (PF) inj 25 mcg 25 mcg, IV Push, Q5 MIN PRN Pain, Moderate, Starting on Tue04/30/24 at 0733, Until Tue04/30/24 at 1636, For 4 doses, Administer up to a total of 100mcg. Administer only postop in PACU When given IV Push its recommended that the dose be given over 3 to 5 minutes., PACU fentaNYL (PF) inj 50 mcg 50 mcg, IV Push, Q5 MIN PRN Pain, Severe, Starting on Tue04/30/24 at 0852, Until Tue04/30/24 at 1636, For 2 doses, Administer up to a total of 100mcg. Administer only postop in PACU When given IV Push its recommended that the dose be given over 3 to 5 minutes., PACU hEParin inj 5,000 Units 5,000 Units, Subcutaneous, ONCALL, Starting on Tue04/30/24 at 0552, Until Tue04/30/24 at 0616, For 1 dose, Pre-Op Given 04/30/2024 6:16 AM EST 5,000 Units Abdomen Right Lower HYDROmorphone (Dilaudid) inj 0.5 mg 0.5 mg, IV Push, Q15 MIN PRN Pain, Severe, Starting on Tue04/30/24 at 0733, Until Tue04/30/24 at 1636, For 2 doses, Administer only postop in PACU. Hold for respiratory rate less than 12. Administer up to a total of 1mg., PACU Isolyte-S pH 7.4 infusion Intravenous, at 140 mL/hr, KVO --- For Periop use. Plasma-LYTE 148, isolyte-S, and isolyte-S pH 7.4 are considered equivalent - including for MAR barcode scanning., CONTINUOUS, Starting on Tue04/30/24 at 0630, Until Tue04/30/24 at 1429, Pre-Op Restarted 04/30/2024 7:44 AM EST Continue from Pre-Op 04/30/2024 7:11 AM EST 140 mL/hr New Bag 04/30/2024 6:15 AM EST 140 mL/hr oxygen GAS Inhalation, OXYGEN, First dose on Tue04/30/24 at 0815, Until Discontinued, Device/Managed by: Low Flow Device, Goal SPO2 (%): Other, Lower-limit SPO2 (%): 88, Upper-limit SPO2 (%): 92, Starting Device: Nasal Cannula, Initial Flow Rate (LPM): 6 LPM for NC; 10 LPM for NRB mask, Lowest Support: Nasal Cannula: Flow 0-6 LPM. Titrate up/down by 1 LPM., Higher Support: Non-Rebreather (NRB) Mask: Minimum of 10 LPM. Titrate to maintain bag inflation., Titration Interval: Q2 minutes and as needed., Notify Provider: Other, Notify Provider [other]: If SpO2 less than 88%, notify provider immediately, If patient is on Room Air in the PACU and SpO2 is greater than 88% but less than 92% place patient on Nasal Cannula If patient is on Room Air in the PACU and SpO2 is less than 88% place patient on NRB Mask Oxygen On 04/30/2024 9:02 AM EST oxygen GAS Inhalation, OXYGEN, First dose on Tue04/30/24 at 0930, Until Discontinued, Device/Managed by: NIV or Ventilator Device, Goal SPO2 (%): 91-95, Notify Provider: For sudden DECREASE in resting SPO2 to less than 85% and when escalating delivery device., Initial FiO2 (%): 40, Titration Interval: Q2 minutes and as needed., Wean patient off Oxygen when the oxygen saturation is greater than or equal to 93% Scopolamine (Transderm Scop) patch 1 mg 1 mg (1 Patch), Transdermal, ONCE, On Tue04/30/24 at 0730, For 1 dose, Do NOT cut the patch. All Scopolamine patches deliver 1 mg over 72 hours. Remove any Scopolamine patches the patient may currently be wearing prior to applying the new patch., Pre-Op Patch Applied 04/30/2024 6:57 AM EST 1 mg Other-Specify traMADol (Ultram) tab 50 mg 50 mg, Oral, Q6H PRN Pain, Moderate, Pain, Severe, Starting on Tue04/30/24 at 1117, Until Tue04/30/24 at 1636 Given 04/30/2024 12:01 PM EST 50 mg documented in this encounter Active and Recently Administered Medications Times are shown in EST. Scheduled Medication Order 04/28/2024 04/29/2024 04/30/2024 Acetaminophen (Tylenol) tab 975 mg (COMPLETED) 975 mg, Oral, PREOP, First dose on Tue04/30/24 at 0630, Last dose on Tue04/30/24 at 0630, For 1 dose, Maximum 4 g acetaminophen/day. Avoid in patients with severe hepatic impairment or severe active liver disease. Administer 60 minutes prior to OR., Pre-Op 0615 (Given - Provid er: Emily Cui RN) albuterol-ipratropium (Duoneb) inhalation solution 3 mL 3 mL, Nebulizer, RESPQID, First dose on Tue04/30/24 at 0800, Until Discontinued, 3 mL = 0.5 mg ipratropium/ 2.5 mg albuterol, Pre-Op 0654 (Given - Provid er: Emily Cui RN)1200 (Due) albuterol-ipratropium (Duoneb) inhalation solution 3 mL 3 mL, Nebulizer, RESPQID, First dose on Tue04/30/24 at 1200, Until Discontinued, 3 mL = 0.5 mg ipratropium/ 2.5 mg albuterol, PACU 1200 (Due) albuterol-ipratropium (Duoneb) inhalation solution 3 mL (COMPLETED) 3 mL, Nebulizer, ONCE, On Tue04/30/24 at 1230, For 1 dose, 3 mL = 0.5 mg ipratropium/ 2.5 mg albuterol, Post-op 1154 (Given - Provid er: Yvette Herring RN) ceFAZolin in dextrose (Ancef) ivpb 2 g (COMPLETED) 2 g, IV Piggyback, PREOP, 1 dose, First dose on Tue04/30/24 at 0630, Administer 60 minutes prior to skin incision, Pre-Op 07 (Given - Provid er: Lan Abbott MD) check patch placement order Q8H, First dose on Tue04/30/24 at 0730, Until Discontinued, Routine, Scopolamine (TRANSDERM SCOP) patch placement check, Pre-Op 07 (Due) chlorhexidine gluconate cloth 2 % pad 1 Pad (COMPLETED) 1 Pad, External, PREOP, First dose on Tue04/30/24 at 0630, Last dose on Tue04/30/24 at 0630, For 1 dose, Cleanse surgical site area immediately before transferring intra-op, Pre-Op 0615 (Given - Provid er: Emily Cui RN) hEParin inj 5,000 Units (COMPLETED) 5,000 Units, Subcutaneous, ONCALL, Starting on Tue04/30/24 at 0552, Until Tue04/30/24 at 0616, For 1 dose, Pre-Op 0616 (Given - Provid er: Emily Cui RN) oxygen GAS Inhalation, OXYGEN, First dose on Tue04/30/24 at 0815, Until Discontinued, Device/Managed by: Low Flow Device, Goal SPO2 (%): Other, Lower-limit SPO2 (%): 88, Upper-limit SPO2 (%): 92, Starting Device: Nasal Cannula, Initial Flow Rate (LPM): 6 LPM for NC; 10 LPM for NRB mask, Lowest Support: Nasal Cannula: Flow 0-6 LPM. Titrate up/down by 1 LPM., Higher Support: Non-Rebreather (NRB) Mask: Minimum of 10 LPM. Titrate to maintain bag inflation., Titration Interval: Q2 minutes and as needed., Notify Provider: Other, Notify Provider [other]: If SpO2 less than 88%, notify provider immediately, If patient is on Room Air in the PACU and SpO2 is greater than 88% but less than 92% place patient on Nasal Cannula If patient is on Room Air in the PACU and SpO2 is less than 88% place patient on NRB Mask 0902 (Oxygen On - Pr ovider: Yvette Herring RN) oxygen GAS(Linked Group 1) Inhalation, OXYGEN, First dose on Tue04/30/24 at 0930, Until Discontinued, Device/Managed by: NIV or Ventilator Device, Goal SPO2 (%): 91-95, Notify Provider: For sudden DECREASE in resting SPO2 to less than 85% and when escalating delivery device., Initial FiO2 (%): 40, Titration Interval: Q2 minutes and as needed., Wean patient off Oxygen when the oxygen saturation is greater than or equal to 93% 0930 (Due) Scopolamine (Transderm Scop) patch 1 mg 1 mg (1 Patch), Transdermal, ONCE, On Tue04/30/24 at 0730, For 1 dose, Do NOT cut the patch. All Scopolamine patches deliver 1 mg over 72 hours. Remove any Scopolamine patches the patient may currently be wearing prior to applying the new patch., Pre-Op 0657 (Patch Applied - Provider: Emily Cui RN - Comment: Right ear)1236 (Due: Patch Removed - Provider: Discharge, Physician - Comment: Time automatically adjusted from order being discontinued) Continuous Medication Order 04/28/2024 04/29/2024 04/30/2024 Isolyte-S pH 7.4 infusion Intravenous, at 140 mL/hr, KVO --- For Periop use. Plasma-LYTE 148, isolyte-S, and isolyte-S pH 7.4 are considered equivalent - including for MAR barcode scanning., CONTINUOUS, Starting on 04/30/24 at 0630, Until Tue04/30/24 at 1429, Pre-Op 0615 (New Bag - Prov ider: Emily Cui RN)0711 (Continue from Pre-Op - Provider: Lan Abbott MD)0743 (Paused - Provider: Lan Abbott MD - Comment: Switch to gravity)0744 (Restarted - Provider: Lan Abbott MD)0848 (Anes Intra-Op Fluid - Provider: Rolo Beck DO) Isolyte-S pH 7.4 infusion Intravenous, at 150 mL/hr, For Periop use. Plasma-LYTE 148, isolyte-S, and isolyte-S pH 7.4 are considered equivalent - including for MAR barcode scanning., CONTINUOUS, Starting on Tue04/30/24 at 0945, Until Tue04/30/24 at 1344, Post-op 0945 (Due) PRN Medication Order 04/28/2024 04/29/2024 04/30/2024 Acetaminophen (Tylenol) tab 975 mg 975 mg, Oral, Q6H PRN Pain, Mild, Fever >38C(100.5F), Starting on 05/05/24 at 0000, Until 04/30/24 at 1636, Maximum 4 g acetaminophen/day. Avoid in patients with severe hepatic impairment or severe active liver disease. Begin after around the clock acetaminophen order discontinued (S+5)., Post-op bupivacaine HCl (Sensorcaine) 0.25 % (PF) inj (CANCELED) ONCE PRN INTRA PROCEDURE, Starting on Tue04/30/24 at 0815, Until Tue04/30/24 at 0849, Intra-Op 0815 (Given - Provid er: Shekhar Belle MD) fentaNYL (PF) inj 25 mcg 25 mcg, IV Push, Q5 MIN PRN Pain, Moderate, Starting on Tue04/30/24 at 0733, Until Tue04/30/24 at 1636, For 4 doses, Administer up to a total of 100mcg. Administer only postop in PACU When given IV Push its recommended that the dose be given over 3 to 5 minutes., PACU fentaNYL (PF) inj 50 mcg 50 mcg, IV Push, Q5 MIN PRN Pain, Severe, Starting on Tue04/30/24 at 0852, Until Tue04/30/24 at 1636, For 2 doses, Administer up to a total of 100mcg. Administer only postop in PACU When given IV Push its recommended that the dose be given over 3 to 5 minutes., PACU HYDROmorphone (Dilaudid) inj 0.5 mg 0.5 mg, IV Push, Q15 MIN PRN Pain, Severe, Starting on Tue04/30/24 at 0733, Until Tue04/30/24 at 1636, For 2 doses, Administer only postop in PACU. Hold for respiratory rate less than 12. Administer up to a total of 1mg., PACU Indocyanine Green (IC-Green) inj (CANCELED) ONCE PRN INTRA PROCEDURE, Starting on Tue04/30/24 at 0752, Until Tue04/30/24 at 0849, Intra-Op 0752 (Given - Provid er: Shekhar Belle MD - Comment: prn intra op lymph nodes) ondansetron (Zofran) inj 4 mg 4 mg, IV Push, Q6H PRN Nausea, Starting on Tue04/30/24 at 0906, Until Tue04/30/24 at 1636, Post-op sodium chloride IR 0.9 % irrigation (CANCELED) ONCE PRN INTRA PROCEDURE, Starting on Tue04/30/24 at 0752, Until Tue04/30/24 at 0849, Intra-Op 0752 (Given - Provid er: Shekhar Belle MD - Comment: prn intra op irrigation) sterile water for irrigation irrigation (CANCELED) ONCE PRN INTRA PROCEDURE, Starting on Tue04/30/24 at 0753, Until Tue04/30/24 at 0849, Intra-Op 0753 (Given - Provid er: Shekhar Belle MD - Comment: prn intra op irrigation) traMADol (Ultram) tab 50 mg 50 mg, Oral, Q6H PRN Pain, Moderate, Pain, Severe, Starting on Tue04/30/24 at 1117, Until Tue04/30/24 at 1636 1201 (Given - Provid er: Yvette Herring RN) Linked Groups Order Group 1: Ventilation Method: Acute Non-Invasive --- Indication (Adult Only)? Other - Please Specify in Comments --- PEEP/EPAP/CPAP: 5 --- Changes Per Adult Protocol: Yes (CANCELED) CONTINUOUS, Starting on Tue04/30/24 at 0855, Until Specified Routine, PACU And oxygen GASJump to med Inhalation, OXYGEN, First dose on Tue04/30/24 at 0930, Until Discontinued, Device/Managed by: NIV or Ventilator Device, Goal SPO2 (%): 91-95, Notify Provider: For sudden DECREASE in resting SPO2 to less than 85% and when escalating delivery device., Initial FiO2 (%): 40, Titration Interval: Q2 minutes and as needed., Wean patient off Oxygen when the oxygen saturation is greater than or equal to 93% documented in this encounter Advance Directives * [...] and were consensually agreed upon. Care Teams Fpga Design Engineer Relationship Specialty Start Date End Date Rosy Cummins PA-C [address] [id number] PCP - General Physician Counseling Services Director 04/30/24 documented as of this encounter
--- OUTSIDE RECORDS SUMMARY | 2024-06-29 10:59 | External Medical Summary | Summary of Care ---
Author Name Unknown Organization [facility] Address [address] [facility] [place] [address] Phone [phone] Care Team Providers Care Butt Presser Name Role Phone Rosy Cummins PA-C Primary Care Provider [phone] Reason for Visit * Reason Comments Medication Refill Encounter Details Date Type Department Care Team (Late st Contact Info) Description 05/20/2024 Refill [facility] Radha Ornelas [address] [place] [phone] Rosy Cummins PA-C [address] [facility] [place] [phone] Allergies Active Allergy Reactions Criticality Noted Date Comments Azelastine Nausea/vomiting 12/29/2023 Cetirizine Other (Please comment) 11/22/2021 headache Latex Rash 10/14/2021 Metoprolol Unknown 10/14/2021 Sulfa Antibiotics 08/13/2002 bactrim only-itching afater 1 week Tartaric Acid Unknown 10/14/2021 Valacyclovir 11/23/2022 Renal calculi documented as of this encounter (statuses as of 05/21/2024) Medications Multiple Vitamins-Minerals (DAILY MULTIVITAMIN) CAPS Take [...] 15 MG Oral Tablet (Buspar)Indications :Stress Oneh fci to one whole tab by mouth up [...] 5 6:08 PM EST 05/09/19 25 Active Hospital, Clinic, or Other Facility Administered Medication Ordered Dose Route Frequency Start Date End Date Status Vitamin B-12 (Cyanocobalamin) inj 1,000 mcgIndications:B12 deficiency 1000 mcg IM [id number] 01/27/2024 12/28/2024 Active documented as of this encounter (statuses as of 05/21/2024) Active Problems Problem Noted Date Diagnosed Date Endometrial cancer 03/28/2024 Cancer Staging:Clinical stage from 04/30/2024:FIGO Stage IA(cT0, cN0, cM0) - Signed by Shekhar Belle MD on 05/05/2024 Chronic obstructive pulmonary disease 01/27/2024 Old AL (myocardial infarction) 01/27/2024 Prediabetes 12/19/2023 Overview: Per [...] as of this encounter (statuses as of 05/21/2024) Resolved Problems Problem Noted Date Diagnosed Date [...] as of this encounter (statuses as of 05/21/2024) Immunizations Name Administration Dates Next Due Pneumococcal Conjugate Vacci ne, 20-valent ([id number]) 04/08/2023 Pneumococcal Polysaccharide PPV23 (Pneumovax) 03/20/2016 Seasonal [...] 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 Rosy Cummins PA-C * Telephone Encounter - Tiffanie Cruz [facility] - 05/21/2024 10:10 AM EST Pending Prescriptions: Disp Refills Meclizine HCl 25 MG Oral Tablet (Antivert) 540 Ta*1 Sig: Take 1-2 tablets by mouth 3 times a day as needed for dizziness * Telephone Encounter - Tiffanie Cruz [facility] - 05/21/2024 9:59 AM EST Unable to authorize medication refills for pended medication(s) at this time. Part of the protocol criteria used for refill authorization was not satisfied: The last prescription was ordered before the Planned Duration and Indication questions were implemented, so these have not been selected. Meclizine is typically intended for acute use as a PRN medication and not for long-term routine use, and the patient has been taking meclizine for more than 3 months. Thank you, Tiffanie Cruz, PharmD Clinical Pharmacist [facility] 05/21/2024 10:02 AM documented in this encounter Plan of Treatment Upcoming Encounters Date Type Department Care Team (Late st Contact Info) Description 06/04/2024 10:30 AM EST Office Visit Cardiology, [facility] [address] [facility] [place] [address] Rashaun Felix MD [address] [facility] [place] [phone] 06/14/2024 11:00 AM EST Office Visit Gynecology/Oncology, [place] [address] [facility] [address] Дмитрий Love PA-C [address] [facility] [place] [phone] 07/31/2024 11:00 AM EDT Office Visit Interventional Pain Ctr Derrick Escobar [address] [place] [address] Erica Kaufman CRNP [address] [place] [address] 08/01/2024 10:15 AM EDT Office Visit Orthopaedics [facility] [address] [place] [phone] Salinas Levine PA-C [address] [place] [phone] 09/17/2024 11:30 AM EDT Office Visit Cardiology, [facility] [address] [place] [address] Rashaun Felix MD [address] [place] [address] Scheduled Procedures Name Priority Associated Diagnoses Date/Ti [...] this encounter Medical Devices Implanted Type Area [employer] Health [employer] Safety Professor Device Identifier Shelf Expiration Date Model / Serial / Lot Lens Intraoc 11.5 - [id number] - [id number] Implanted:Qty: 1 on 12/18/2019 by Azam Boo MD at OR [facility] Left: Eye [employer] 10/06/2021 [id number] / [id number] / Lens Intraoc 11.5 - [id number] - [id number] Implanted:Qty: 1 on 12/31/2019 by Azam Boo MD at OR [facility] Right: Eye [employer] 07/06/2024 [id number] / [id number] / [id number] documented as of this encounter Advance Directives [...] and were consensually agreed upon. Care Teams Butt Presser Relationship Specialty Start Date End Date Rosy Cummins PA-C [address] [facility] [place] [address] PCP - General Physician Hand Clerical Verifier 04/30/24 documented as of this encounter
--- OUTSIDE RECORDS SUMMARY | 2024-06-29 11:00 | External Medical Summary | Summary of Care ---
Author Name Unknown Organization [facility] Address [address] [facility] [place] [address] Phone [phone] Care Team Providers Care Blindstitch Machine Operator Name Role Phone Rosy Cummins PA-C Primary Care Provider +1 [phone] Encounter Details Date Type Department Care Team (Latest Contact Info) Description 04/25/2024 3:30 PM EST Telemedicine Orthopaedics [facility] [address] [place] [id number] Salinas Levine PA-C [address] [place] [id number] De Quervain's tenosynovitis, left*; Osteoarthritis of carpometacarpal (CMC) joint of both thumbs Allergies Active Allergy Reactions Criticality Noted Date Comments Azelastine Nausea/vomiting 12/29/2023 Cetirizine Other (Please comment) 11/22/2021 headache Latex Rash 10/14/2021 Metoprolol Unknown 10/14/2021 Sulfa Antibiotics 08/13/2002 bactrim only-itching afater 1 week Tartaric Acid Unknown 10/14/2021 Valacyclovir 11/23/2022 Renal calculi documented as of this encounter (statuses as of 04/25/2024) Medications Multiple Vitamins-Minerals (DAILY MULTIVITAMIN) CAPS Take [...] taking differently: 12.5 mgOral Daily(AM), Reported on 11/05/2022 Clobetasol Propionate 0.05 % External Cream (Temovate) Apply topically to affected area daily. To affected area 15 g 1 08/26/19 23 Active Magnesium 400 MG Oral Tablet Take by mouth. At bedtime Active busPIRone HCl 15 MG Oral Tablet (Buspar)Indications :Stress Oneh senior living to one whole tab by mouth up to three times a day as needed for nerves 20 Tablet 04/08/20 23 Active Additional Information Patient not taking.Reported on 03/14/2024 dilTIAZem HCl ER Coated Beads 120 MG [...] for Nausea. 20 Tablet 12/07/19 24 Active Gabapentin 100 MG Oral Capsule (Neurontin)Indicati ons:Lumbar radicular pain Take 2 Capsules by mouth in the morning and 2 Capsules at noon and 2 Capsules before bedtime. 540 Capsule 4 6:33 AM EDT 12/27/19 24 024 Active Sodium Hyaluronate 60 MG/3ML Intra-articular Prefilled Syringe (DurTeachTownne) Inject contents of prefilled syringe into the [...] until gone 6 Tablet 04/19/20 24 Active Hospital, Clinic, or Other Facility Administered Medication Ordered Dose Route Frequency Start Date End Date Status Vitamin B-12 (Cyanocobalamin) inj 1,000 mcgIndications:B12 deficiency 1000 mcg IM [id number] 01/27/2024 12/28/2024 Active documented as of this encounter (statuses as of 04/25/2024) Active Problems Problem Noted Date Diagnosed Date Endometrial cancer 03/28/2024 Chronic obstructive pulmonary disease 01/27/2024 Old [place] (myocardial infarction) 01/27/2024 Prediabetes 12/19/2023 Overview: Per [...] as of this encounter (statuses as of 04/25/2024) Resolved Problems Problem Noted Date Diagnosed Date [...] as of this encounter (statuses as of 04/25/2024) Immunizations Name Administration Dates Next Due Hepatitis B, 20+ yrs 11/23/2000,05/20/2000,02/2310/18/2000 Influenza, Whole Virus 03/10/1999 PPD 10/31/2001,03/24/1999,01/19/1994 Pneumococcal Conjugate Vacci ne, 20-valent ([id number]) 04/08/2023 Pneumococcal Polysaccharide PPV23 (Pneumovax) 03/20/2016,02/24/2000 Seasonal [...] 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 Patient was then informed that this was a telephone call only visit. The patient agreed to participate. Visit Disposition: Routine follow-up Total call duration was 0 minutes. Unable to communicate today's telephonic visit to review symptomatic results for treatments consistent with 1st CMC joint osteoarthritis and de Quervain tenosynovitis. The 1st CMC joint was injected previously with corticosteroid. De Quervain symptoms continued. Recommended continued conservation including bracing physical therapy ice NSAIDs behavior modification and rest. Failure to relieve and we would refer to our Sports Medicine team for consideration of ultrasound-guided steroid injection in the 1st dorsal compartment. documented in this encounter Plan of Treatment Upcoming Encounters Date Type Department Care Team (Latest Contact Info) Description 04/30/2024 7:15 AM EST Hospital Encounter [facility] [address] [place] [phone] Shekhar Belle MD [address] [place] [address] 04/30/2024 7:15 AM EST - 04/30/2024 9:16 AM EST Surgery OR [facility], OPERATING ROOM [facility], [place] [address] [address] [place] [phone] Shekhar Belle MD [facility] [place] [address] ROBOTIC LAPAROSCOPIC HYSTERECTOMY WITH REMOVAL TUBES AND OVARIES FOR UTERUS GREATER THAN 250GM 05/15/2024 11:00 AM EST Office Visit Gynecology/Oncolog y, [place] [address] [place] [address] Shekhar Belle MD [facility] [place] [address] 05/17/2024 1:00 PM EST Office Visit Allergy/Immunology [facility] [address] [place] [address] Carlo Arambula MD [address] [place] [address] 06/04/2024 11:30 AM EST Office Visit Interventional Pain Ctr [facility] [address] [place], [place] [phone] Trino Mills CRNP [address] [place] [address] 06/11/2024 10:30 AM EST Office Visit Gynecology/Oncolog y, [place] [address] [place] [address] Дмитрий Love PA-C [address] [place] [address] 08/01/2024 10:15 AM EDT Office Visit Orthopaedics [facility] [address] [place] [address] Salinas Levine PA-C [address] [place] [address] 09/17/2024 11:30 AM EDT Office Visit Cardiology, [facility] [address] [place] [address] Rashaun Felix MD [address] [place] [address] Scheduled Procedures Name Priority Associated Diagnoses Date/Ti ok ROBOTIC LAPAROSCOPIC HYSTERECTOMY WITH REMOVAL TUBES AND/OR OVARIES FOR UTERUS GREATER THAN 250GM Endometrial cancer (HCC) 04/30/2024 7:15 AM EST LAPAROSCOPIC RETROPERITONEAL LYMPH NODE SAMPLING Endometrial cancer (HCC) 04/30/2024 7:15 AM EST PELVIC EXAMINATION UNDER ANESTHESIA Endometrial cancer (HCC) 04/30/2024 7:15 AM EST COLONOSCOPY FLEXIBLE PROXIMA L DIAGNOSTIC [...] 11/08/2024 11/09/2023, 10/09, 06/27/2015, Additional history exists O2 ASSESSMENT COMPLETED IN PAST YEAR FOR COPD 03/14/2025 03/14/2024 Albumin/Creatinine Ratio 03/17/2025 03/17/2022 HbA1c 04/04/2025 04/04/2024, 07/0 12/2023, 03/28/2023, Additional history exists GFR 04/24/2025 04/24/2024, 03/10, 08/04/2023, Additional history exists Lipid Panel 01/15/2028 01/14/2023, 09/06, 11/05/2020, Additional [...] this encounter Medical Devices Implanted Type Area Loans Officer Device Identifier Shelf Expiration Date Model / Serial / Lot Lens Intraoc 11.5 - [id number] - [id number] Implanted:Qty: 1 on 12/18/2019 by Azam Boo MD at OR [facility] Left: Eye [employer]CH [employer] LOMB 10/06/2021 [id number] / [id number] / Lens Intraoc 11.5 - [id number] - [id number] Implanted:Qty: 1 on 12/31/2019 by Azam Boo MD at OR [facility] Right: Eye BAUSCH & LOMB 07/06/2024 [id number] / [id number] / [id number] documented as of this encounter Visit Diagnoses Diagnosis Endometrial cancer (HCC)- Primary Malignant neoplasm of corpus uteri, except isthmus De Quervain's tenosynovitis, left- Primary Radial styloid tenosynovitis Osteoarthritis of carpometacarpal (CMC) joint of both thumbs Endometrial cancer (HCC) Malignant neoplasm of corpus uteri, except isthmus documented in this encounter Advance Directives * Full Code (Latest Code Status on File) Date Activated Date Inactivated Comments 11/18/2016 1:02 PM 11/19/2016 3:42 PM This order r eflects the patients wishes and were consensually agreed upon. Care Teams Blindstitch Machine Operator Relationship Specialty Start Date End Date Rosy Cummins PA-C PCP - General Physician Printing Equipment Mechanic Apprentice 02/17/21 documented as of this encounter
--- OUTSIDE RECORDS SUMMARY | 2024-06-29 11:00 | External Medical Summary ---
Author Name Unknown Address Unknown Organization : Laboratory Report Ordering Provider Test Date Status SABIHA MEI 04/30/2024 06:22:26 Final Observation Date Value Abnormality Reference (Units ) Status Glucose Point of Care 04/30/2024 06:22:26 102 70-120 (mg/dL) Final Performing Location
--- OUTSIDE RECORDS SUMMARY | 2024-06-29 11:00 | External Medical Summary ---
Author Name Unknown Address Unknown Organization K01:LABORATORY [facility] - [facility] [address] [place] [address] Laboratory Report Ordering Provider Test Date Status BRUNO LUJAN 04/24/2024 12:59:23 Final Observation Date Value Abnormality Reference (Units ) Status BUN 04/24/2024 12:59:23 14 6-20 (mg/dL) Final Creatinine 04/24/2024 12:59:23 0.7 0.5-1.0 (mg/dL) Final Glomerular filtration rate/1.73 sq M.predicted [Volume Rate/Area] in Serum, Plasma or Blood by Creatinine-based formula (CKD-EPI) 04/24/2024 12:59:23 >90 >=60 (mL/min) Final eGFR is calculated based on the CKD-EPI 2020 equation. Sodium 04/24/2024 12:59:23 139 135-146 (m mol/L) Final Potassium 04/24/2024 12:59:23 4.3 3.5-5.1 (m mol/L) Final Cl 04/24/2024 12:59:23 102 98-107 (mm ol/L) Final CO2 04/24/2024 12:59:23 24 22-32 (mmo l/L) Final Anion gap 04/24/2024 12:59:23 13 7-15 (mmol /L) Final Glucose 04/24/2024 12:59:23 94 70-120 (mg /dL) Final Calcium 04/24/2024 12:59:23 9.5 8.4-10.2 ( mg/dL) Final Performing Location LABORATORY [facility] - [address] [place] [address]
--- OUTSIDE RECORDS SUMMARY | 2024-06-29 11:00 | External Medical Summary | Summary of Care ---
Author Name Unknown Organization [facility] Address [address] [facility] [place] [address] Phone [phone] Care Team Providers Care Outreach Professional Name Role Phone Rosy Cummins PA-C Primary Care Provider [phone] [phone] Encounter Details Date Type Department Care Team (Late st Contact Info) Description 04/26/2024 3:45 PM EST Telemedicine Orthopaedics [facility] [address] [place] [id number] Salinas Levine PA-C [address] [place] [id number] De Quervain's tenosynovitis, left* Allergies Active Allergy Reactions Criticality Noted Date Comments Azelastine Nausea/vomiting 12/29/2023 Cetirizine Other (Please comment) 11/22/2021 headache Latex Rash 10/14/2021 Metoprolol Unknown 10/14/2021 Sulfa Antibiotics 08/13/2002 bactrim only-itching afater 1 week Tartaric Acid Unknown 10/14/2021 Valacyclovir 11/23/2022 Renal calculi documented as of this encounter (statuses as of 04/26/2024) Medications Multiple Vitamins-Minerals (DAILY MULTIVITAMIN) CAPS Take [...] 15 MG Oral Tablet (Buspar)Indications :Stress Oneh snf to one whole tab by mouth up [...] inj 1,000 mcgIndications:B12 deficiency 1000 mcg IM [id number] 01/27/2024 12/28/2024 Active documented as of this encounter (statuses as of 04/26/2024) Active Problems Problem Noted Date Diagnosed Date Endometrial cancer 03/28/2024 Chronic obstructive pulmonary disease 01/27/2024 Old [place] (myocardial infarction) 01/27/2024 Prediabetes 12/19/2023 Overview: Per [...] as of this encounter (statuses as of 04/26/2024) Resolved Problems Problem Noted Date Diagnosed Date [...] as of this encounter (statuses as of 04/26/2024) Immunizations Name Administration Dates Next Due Pneumococcal Conjugate Vacci ne, 20-valent ([id number]) 04/08/2023 Pneumococcal Polysaccharide PPV23 (Pneumovax) 03/20/2016 Seasonal [...] 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 Attempted 1 final telephonic visit today to discuss with the patient whether left wrist symptoms for de Quervain tenosynovitis or improving or if we need to refer to Sports Medicine for discussion ofpossible ultrasound-guided injection. Unable to connect today. Left the patient a voicemail once again today to call the office if needed. We would be more than happy to help facilitate a follow-up and future treatment options. documented in this encounter Plan of Treatment Upcoming Encounters Date Type Department Care Team (Latest Contact Info) Description 04/30/2024 7:15 AM EST Hospital Encounter OR [facility], [facility]PERATING [facility] [address] [place] [address] Shekhar Belle MD [address] [place] [address] 04/30/2024 7:15 AM EST - 04/30/2024 9:16 AM EST Surgery OR [facility], OPERATING [facility] [address] [place] [address] Shekhar Belle MD [address] [place] [address] ROBOTIC LAPAROSCOPIC HYSTERECTOMY WITH REMOVAL TUBES AND OVARIES FOR UTERUS GREATER THAN 250GM 05/15/2024 11:00 AM EST Office Visit Gynecology/Oncolog y, [place] [address] [place] [address] Shekhar Belle MD [address] [place] [address] 05/17/2024 1:00 PM EST Office Visit Allergy/Immunology [facility] [address] [facility] [address] Carlo Arambula MD [address] [place] [address] 06/04/2024 11:30 AM EST Office Visit Interventional Pain Ctr [facility] [address] [place] [address] Trino Mills CRNP [address] [place] [address] 06/11/2024 10:30 AM EST Office Visit Gynecology/Oncolog y, [place] [address] [place] [address] Дмитрий Love PA-C [address] [place] [address] 08/01/2024 10:15 AM EDT Office Visit Orthopaedics [facility] [address] [place] [address] Salinas Levine PA-C [address] [place] [address] 09/17/2024 11:30 AM EDT Office Visit Cardiology, [facility] [address] [place] [address] Rashaun Felix MD [address] [place] [address] Scheduled Procedures Name Priority Associated Diagnoses Date/Ti me ROBOTIC LAPAROSCOPIC HYSTERECTOMY WITH REMOVAL TUBES AND/OR [...] this encounter Medical Devices Implanted Type Area Microwave Supervisor Device Identifier Shelf Expiration Date Model / Serial / Lot Lens Intraoc 11.5 - [id number] - [id number] Implanted:Qty: 1 on 12/18/2019 by Azam Boo MD at OR [facility] Left: Eye [employer]CH [employer] LOMB 10/06/2021 [id number] / [id number] / Lens Intraoc 11.5 - [id number] - [id number] Implanted:Qty: 1 on 12/31/2019 by Azam Boo MD at OR [facility] Right: Eye BAUSCH [employer] LOMB 07/06/2024 [id number] / [id number] / [id number] documented as of this encounter Visit Diagnoses Diagnosis Endometrial cancer (HCC)- Primary Malignant neoplasm of corpus uteri, except isthmus De Quervain's tenosynovitis, left- Primary Radial styloid tenosynovitis Endometrial cancer (HCC) Malignant neoplasm of corpus uteri, except isthmus documented in this encounter Advance Directives * Full Code (Latest Code Status on File) Date Activated Date Inactivated Comments 11/18/2016 1:02 PM 11/19/2016 3:42 PM This order r eflects the patients wishes and were consensually agreed upon. Care Teams Outreach Professional Relationship Specialty Start Date End Date Rosy Cummins PA-C PCP - General Physician Flatbed Truck Driver 02/17/21 documented as of this encounter
--- OUTSIDE RECORDS SUMMARY | 2024-06-29 11:00 | External Medical Summary ---
Author Name Unknown Address Unknown Organization K01:LABORATORY [facility] - [facility] [address] [facility] [address] Laboratory Report Ordering Provider Test Date Status BRUNO LUJAN 04/24/2024 12:59:23 Final Observation Date Value Abnormality Reference (Units ) Status WBC, Total 04/24/2024 12:59:23 11.95 Above high normal 4.00-10.80 (K/uL) Final RBC 04/24/2024 12:59:23 4.06 3.85-5.15 (M/uL) Final Hemoglobin 04/24/2024 12:59:23 11.4 Below low normal 12.0-15.3 (g/dL) Final HCT 04/24/2024 12:59:23 36.7 36.0-45.2 (%) Final MCV 04/24/2024 12:59:23 90.4 81.5-97.5 (fL) Final MCH 04/24/2024 12:59:23 28.1 27.0-34.0 (pg) Final MCHC 04/24/2024 12:59:23 31.1 32.0-36.0 (g/dL) Final RDW 04/24/2024 12:59:23 14.0 11.5-15.5 (%) Final Platelets 04/24/2024 12:59:23 357 140-400 (K/uL) Final MPV 04/24/2024 12:59:23 10.7 6.6-11.1 (fL) Final Nucleated erythrocytes/100 leukocytes [Ratio] in Blood by Automated count 04/24/2024 12:59:23 0 <=0 (/100 WBCs) Final Performing Location LABORATORY [facility] - [address] [place] [address]
--- OUTSIDE RECORDS SUMMARY | 2024-06-29 11:00 | External Medical Summary | Summary of Care ---
Author Name Unknown Organization [facility] Address [address] [facility] [place] [address] Phone [phone] Care Team Providers Care Site Planner Name Role Phone Rosy Cummins PA-C Primary Care Provider [phone] Encounter Details Date Type Department Care Team (Latest Contact Info) Description 04/25/2024 3:30 PM EST Telemedicine Orthopaedics [facility] [address] [place] [id number] Salinas Levine PA-C [address] [place] [address] De Quervain's tenosynovitis, left*; Osteoarthritis of carpometacarpal [...] 15 MG Oral Tablet (Buspar)Indications :Stress Oneh shelter to one whole tab by mouth up [...] Sodium Hyaluronate 60 MG/3ML Intra-articular Prefilled Syringe (DurThe Movie Studione) Inject contents of prefilled syringe into the [...] inj 1,000 mcgIndications:B12 deficiency 1000 mcg IM [id number] 01/27/2024 12/28/2024 Active documented as of this encounter (statuses as of 04/25/2024) Active Problems Problem Noted Date Diagnosed Date Endometrial cancer 03/28/2024 Chronic obstructive pulmonary disease 01/27/2024 Old [place] (myocardial infarction) 01/27/2024 Prediabetes 12/19/2023 Overview: Per [...] 04/25/2024) Immunizations Name Administration Dates Next Due Pneumococcal Conjugate Vacci ne, 20-valent ([id number]) 04/08/2023 Pneumococcal Polysaccharide PPV23 (Pneumovax) 03/20/2016 Seasonal [...] 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, 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 Not on file Travel History Travel Start Travel End [place] 04/08/2024 04/14/2024 documented as of this [...] 04/30/2024 7:15 AM EST Hospital Encounter OR [facility], [facility] [address] [place] [address] Shekhar Belle MD [address] [place], [place] [address] 04/30/2024 7:15 AM EST - 04/30/2024 9:16 AM EST Surgery OR [facility], [facility] [address] [place] [address] Shekhar Belle MD [address] [place] [address] ROBOTIC LAPAROSCOPIC HYSTERECTOMY WITH REMOVAL TUBES AND OVARIES FOR UTERUS GREATER THAN 250GM 05/15/2024 11:00 AM EST Office Visit Gynecology/Oncolog y, [place] [address] [place] [address] Shekhar Belle MD [address] [place] [address] 05/17/2024 1:00 PM EST Office Visit Allergy/Immun[facility] [address] [facility] [place] [address] Carlo Arambula MD [address] [facility] [place] [address] 06/04/2024 11:30 AM EST Office Visit Interventional Pain Ctr [facility] [address] [place] [address] Trino Mills CRNP [address] [place] [address] 06/11/2024 10:30 AM EST Office Visit Gynecology/Oncolog y, [place] [address] [place] [address] Дмитрий Love PA-C [address] [place] [address] 08/01/2024 10:15 AM EDT Office Visit Orthopaedics [facility] [address] [facility] [place] [place] [address] Salinas Levine PA-C [address] [place] [address] 09/17/2024 11:30 AM EDT Office Visit Cardiology, [facility] [address] [facility] [place] [phone] Rashaun Felix MD [address] [place] [address] Scheduled Procedures Name Priority Associated Diagnoses Date/Ti [...] this encounter Medical Devices Implanted Type Area Head Of Geography Device Identifier Shelf Expiration Date Model / Serial / Lot Lens Intraoc 11.5 - [id number] - [id number] Implanted:Qty: 1 on 12/18/2019 by Azam Boo MD at OR [facility] Left: Eye BAUSCH [employer] LOMB 10/06/2021 [id number] / [id number] / Lens Intraoc 11.5 - [id number] - [id number] Implanted:Qty: 1 on 12/31/2019 by Azam Boo MD at OR [facility] Right: Eye BAUSCH & LOMB 07/06/2024 [id number] / [id number] / [id number] documented as of this encounter Visit Diagnoses [...] and were consensually agreed upon. Care Teams Site Planner Relationship Specialty Start Date End Date Rosy Cummins PA-C [address] [place] [address] PCP - General Physician Oral Hygienist 02/17/21 documented as of this encounter
--- OUTSIDE RECORDS SUMMARY | 2024-06-29 11:00 | External Medical Summary ---
Author Name Unknown Address Unknown Organization : Laboratory Report Ordering Provider Test Date Status SABIHA MEI 04/30/2024 12:28:43 Final Observation Date Value Abnormality Reference (Units ) Status Glucose Point of Care 04/30/2024 12:28:43 160 Above high normal 70-120 (mg/dL) Final Performing Location
--- OUTSIDE RECORDS SUMMARY | 2024-06-29 11:00 | External Medical Summary ---
Author Name Unknown Address Unknown Organization K01:LABORATORY [facility] [place] B LOOD BANK - [address] [place] [address] Laboratory Report Ordering Provider Test Date Status BRUNO LUJAN 04/30/2024 06:14:53 Final Please collect on admission Observation Date Value Abnormality Reference (Units ) Status ABO 04/30/2024 06:14:53 A Final RH 04/30/2024 06:14:53 Positive Final Performing Location LABORATORY [facility] [place] BLOOD [facility] - [address] [place] [address]
--- OUTSIDE RECORDS SUMMARY | 2024-06-29 11:00 | External Medical Summary ---
Author Name Unknown Address Unknown Organization K01:LABORATORY [facility] - [address] [place] [address] Laboratory Report Ordering Provider Test Date Status BRUNO LUJAN 04/30/2024 06:14:53 Final Please collect on admission Observation Date Value Abnormality Reference (Units ) Status ABO 04/30/2024 06:14:53 A Final RH 04/30/2024 06:14:53 Positive Final RED BLOOD CELL ANTIBODY SCREEN 04/30/2024 06:14:53 Negative Final SPECIMEN EXPIRATION DATE 04/30/2024 06:14:53 05/03/2024 23:59 Final Performing Location LABORATORY [facility] BLOOD [facility] - [address] [place] [address]
--- OUTSIDE RECORDS SUMMARY | 2024-06-29 11:00 | External Medical Summary | Summary of Care ---
Author Name Unknown Organization [facility] Address [address] [address] Phone [phone] Care Team Providers Care Oil Well Shooter Name Role Phone Rosy Cummins PA-C Primary Care Provider +1 [phone] Reason for Visit * Reason Comments Outpatient Testing Encounter Details Date Type Department Care Team (Late st Contact Info) Description 04/24/2024 1:10 PM EST Laboratory Laboratory, [facility] [address] [place] [id number] [place], [facility] [address] [place] [address] Endometrial cancer (HCC); Preop testing Allergies Active Allergy Reactions Criticality Noted Date Comments Azelastine Nausea/vomiting 12/29/2023 Cetirizine Other (Please comment) 11/22/2021 headache Latex Rash 10/14/2021 Metoprolol Unknown 10/14/2021 Sulfa Antibiotics 08/13/2002 bactrim only-itching afater 1 week Tartaric Acid Unknown 10/14/2021 Valacyclovir 11/23/2022 Renal calculi documented as of this encounter (statuses as of 04/24/2024) Medications Multiple Vitamins-Minerals (DAILY MULTIVITAMIN) CAPS Take [...] inj 1,000 mcgIndications:B12 deficiency 1000 mcg IM [id number] 01/27/2024 12/28/2024 Active documented as of this encounter (statuses as of 04/24/2024) Active Problems Problem Noted Date Diagnosed Date Endometrial cancer 03/28/2024 Chronic obstructive pulmonary disease 01/27/2024 Old CA (myocardial infarction) 01/27/2024 Prediabetes 12/19/2023 Overview: Per [...] as of this encounter (statuses as of 04/24/2024) Resolved Problems Problem Noted Date Diagnosed Date [...] as of this encounter (statuses as of 04/24/2024) Immunizations Name Administration Dates Next Due Pneumococcal Conjugate Vacci ne, 20-valent ([id number]) 04/08/2023 Pneumococcal Polysaccharide PPV23 (Pneumovax) 03/20/2016 Seasonal [...] 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, 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 Not on file Travel History Travel Start Travel End [place] 04/08/2024 04/14/2024 documented as of this encounter Plan of Treatment Upcoming Encounters Date Type Department Care Team (Latest Contact Info) Description 04/25/2024 3:30 PM EST Telemedicine Orthopaedics [facility] [address] [place] [address] Salinas Levine PA-C [address] [place] [address] 04/30/2024 7:15 AM EST Hospital Encounter [place] [facility] OPERATING ROOM [facility] [address] [facility] [place] [address] Shekhar Belle MD [address] [facility] [place] [address] 04/30/2024 7:15 AM EST - 04/30/2024 9:16 AM EST Surgery OR [facility] OPER[facility] ROOM [facility] [address] [facility] [place] [address] Shekhar Belle MD [address] [place] [address] ROBOTIC LAPAROSCOPIC HYSTERECTOMY WITH REMOVAL TUBES AND OVARIES FOR UTERUS GREATER THAN 250GM 05/15/2024 11:00 AM EST Office Visit Gynecology/Oncolog [facility] [address] [facility] [place] [address] Shekhar Belle MD [address] [place] [address] 05/17/2024 1:00 PM EST Office Visit Allergy/Immunology [facility] [address] [place] [address] Carlo Arambula MD [address] [place] [address] 06/04/2024 11:30 AM EST Office Visit Interventional Pain Ctr [facility] [address] [place] [address] Trino Mills CRNP [address] [place] [address] 06/11/2024 10:30 AM EST Office Visit Gynecology/Oncolog y, [facility] [address] [place], [place] [phone] Дмитрий Love PA-C [address] [place] [address] 08/01/2024 10:15 AM EDT Office Visit Orthopaedics [facility] [address] [place] [address] Salinas Levine PA-C [address] [place] [address] 09/17/2024 11:30 AM EDT Office Visit Cardiology, [facility] [address] [place] [address] Rashaun Felix MD [address] [place] [address] Pending Results Name Type Priority Associated Diagnoses Date /Time CBC Lab Routine Endometrial cancer (HCC) Preop testing 04/24/2024 12:59 PM EST BASIC METABOLIC PANEL Lab Routine Endometrial cancer (HCC) Preop testing 04/24/2024 12:59 PM EST Scheduled Procedures Name Priority Associated Diagnoses Date/Ti [...] COPD 03/14/2025 03/14/2024 Albumin/Creatinine Ratio 03/17/2025 03/17/2022 GFR 04/04/2025 04/04/2024, 07/08, 03/28/2023, Additional history exists HbA1c 04/04/2025 04/04/2024, 07/0 12/2023, 03/28/2023, Additional history exists Lipid Panel 01/15/2028 01/14/2023, [...] this encounter Medical Devices Implanted Type Area Dietitian Assistant Device Identifier Shelf Expiration Date Model / Serial / Lot Lens Intraoc 11.5 - [id number] - [id number] Implanted:Qty: 1 on 12/18/2019 by Azam Boo MD at OR [facility] Left: Eye [employer] 10/06/2021 [id number] / [id number] / Lens Intraoc 11.5 - [id number] - [id number] Implanted:Qty: 1 on 12/31/2019 by Azam Boo MD at OR [facility] Right: Eye [employer] 07/06/2024 [id number] / [id number] / [id number] documented as of this encounter Visit Diagnoses Diagnosis Endometrial cancer (HCC)- Primary Malignant neoplasm of corpus uteri, except isthmus Endometrial cancer (HCC) Malignant neoplasm of corpus uteri, except isthmus Preop testing Preoperative examination, unspecified Endometrial cancer (HCC) Malignant neoplasm of corpus uteri, except isthmus documented in this encounter Advance Directives * Full Code (Latest Code Status on File) Date Activated Date Inactivated Comments 11/18/2016 1:02 PM 11/19/2016 3:42 PM This order r eflects the patients wishes and were consensually agreed upon. Care Teams Oil Well Shooter Relationship Specialty Start Date End Date Rosy Cummins PA-C [address] [place] [address] PCP - General Physician Evs Attendant 02/17/21 documented as of this encounter
--- OUTSIDE RECORDS SUMMARY | 2024-06-29 11:01 | External Medical Summary | Summary of Care ---
Author Name Unknown Organization [facility] Address [address] [facility] [place] [address] Phone [phone] Care Team Providers Care Public Safety Teacher Name Role Phone Rosy Cummins PA-C Primary Care Provider [phone] Reason for Visit * Reason Onset Date Comments Advice 04/19/2024 Encounter Details Date Type Department Care Team (Late st Contact Info) Description 04/19/2024 [facility] [address] [place] [address] Rosy Cummins PA-C [address] [place] [id number] Advice Allergies Active Allergy Reactions Criticality Noted Date Comments Azelastine Nausea/vomiting 12/29/2023 Cetirizine Other (Please comment) 11/22/2021 headache Latex Rash 10/14/2021 Metoprolol Unknown 10/14/2021 Sulfa Antibiotics 08/13/2002 bactrim only-itching afater 1 week Tartaric Acid Unknown 10/14/2021 Valacyclovir 11/23/2022 Renal calculi documented as of this encounter (statuses as of 04/20/2024) Medications Multiple Vitamins-Minerals (DAILY MULTIVITAMIN) CAPS Take [...] inj 1,000 mcgIndications:B12 deficiency 1000 mcg IM [id number] 01/27/2024 12/28/2024 Active documented as of this encounter (statuses as of 04/20/2024) Active Problems Problem Noted Date Diagnosed Date Endometrial cancer 03/28/2024 Chronic obstructive pulmonary disease 01/27/2024 Old [place] (myocardial infarction) 01/27/2024 Prediabetes 12/19/2023 Overview: Per [...] as of this encounter (statuses as of 04/20/2024) Resolved Problems Problem Noted Date Diagnosed Date [...] as of this encounter (statuses as of 04/20/2024) Immunizations Name Administration Dates Next Due Pneumococcal Conjugate Vacci ne, 20-valent ([id number]) 04/08/2023 Pneumococcal Polysaccharide PPV23 (Pneumovax) 03/20/2016 Seasonal [...] 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 Sx started 3 days ago, front of face and ears are sore, she has sinus drain Cold meds have not help. Mucinex robitussin and dayquil. Pt also takes singular and xyzal She has endometrial cancer, she has surgery on 04/30. She saw Mine Exploration Engineer/oncology yesterday in [place] and was advised to contact PCP for ABX. Please advise. documented in this encounter Plan of Treatment Upcoming Encounters Date Type Department Care Team (Latest Contact Info) Description 04/25/2024 3:30 PM EST Telemedicine Orthopaedics [facility] [address] [facility] [place] [id number] Salinas Levine PA-C [address] [facility] [place] [address] 04/30/2024 7:15 AM EST Hospital Encounter OR [facility], OPERATING ROOM [facility] [address] [place] [phone] Shekhar Belle MD [address] [place] [address] 04/30/2024 7:15 AM EST - 04/30/2024 9:16 AM EST Surgery OR [facility], OPERATING ROOM [facility] [address] [place] [phone] Shekhar Belle MD [address] [place], [place] [phone] ROBOTIC LAPAROSCOPIC HYSTERECTOMY WITH REMOVAL TUBES AND OVARIES FOR UTERUS GREATER THAN 250GM 05/15/2024 11:00 AM EST Office Visit Gynecology/Oncolog y, [place] [address] [place] [address] Shekhar Belle MD [address] [place] [address] 05/17/2024 1:00 PM EST Office Visit Allergy/Immunology [facility] [address] [place] [address] Carlo Arambula MD [address] [place] [address] 06/04/2024 11:30 AM EST Office Visit Interventional Pain Ctr [facility] [address] [place], [place] [phone] Trino Mills CRNP [address] [place], [place] [phone] 06/11/2024 10:30 AM EST Office Visit Gynecology/Oncolog y, [place] [address] [place], [place] [address] Дмитрий Love PA-C [address] [place] [address] 08/01/2024 10:15 AM EDT Office Visit Orthopaedics [facility] [address] [place] [address] Sal[place] Levine PA-C [address] [place] [address] 09/17/2024 11:30 AM EDT Office Visit Cardiology, [facility] [address] [place] [address] Rashaun Felix MD [address] [place] [address] Scheduled Procedures Name Priority Associated Diagnoses Date/Ti wv ROBOTIC LAPAROSCOPIC HYSTERECTOMY WITH REMOVAL TUBES AND/OR [...] Albumin/Creatinine Ratio 03/17/2025 03/17/2022 GFR 04/04/2025 04/04/2024, 03/12/2023, 03/28/2023, Additional history exists HbA1c 04/04/2025 04/04/2024, [...] this encounter Medical Devices Implanted Type Area Automatic Riveting Machine Operator Device Identifier Shelf Expiration Date Model / Serial / Lot Lens Intraoc 11.5 - [id number] - [id number] Implanted:Qty: 1 on 12/18/2019 by Azam Boo MD at OR [facility] Left: Eye [employer] 10/06/2021 [id number] / [id number] / Lens Intraoc 11.5 - [id number] - [id number] Implanted:Qty: 1 on 12/31/2019 by Azam Boo MD at OR [facility] Right: Eye [employer]OM[employer] 07/06/2024 [id number] / [id number] / [id number] documented as of this encounter Advance Directives * Full Code (Latest Code Status on File) Date Activated Date Inactivated Comments 11/18/2016 1:02 PM 11/19/2016 3:42 PM This order r eflects the patients wishes and were consensually agreed upon. Care Teams Public Safety Teacher Relationship Specialty Start Date End Date Rosy Cummins PA-C [address] [place] [address] PCP - General Physician Roll Builder 02/17/21 documented as of this encounter
--- OUTSIDE RECORDS SUMMARY | 2024-06-29 11:01 | External Medical Summary | Summary of Care ---
Author Name Unknown Organization [facility] Address [address] [facility] [place] [address] Phone [phone] Care Team Providers Care Hospital Ward Clerk Name Role Phone Rosy Cummins PA-C Primary Care Provider [phone] Encounter Details Date Type Department Care Team (Late st Contact Info) Description 04/21/2024 Orders Only PATIENT PORTAL DO NOT DELETE THIS DEPT USED BY [place] [id number] Allergies Active Allergy Reactions Criticality Noted Date Comments Azelastine Nausea/vomiting 12/29/2023 Cetirizine Other (Please comment) 11/22/2021 headache Latex Rash 10/14/2021 Metoprolol Unknown 10/14/2021 Sulfa Antibiotics 08/13/2002 bactrim only-itching afater 1 week Tartaric Acid Unknown 10/14/2021 Valacyclovir 11/23/2022 Renal calculi documented as of this encounter (statuses as of 04/21/2024) Medications Multiple Vitamins-Minerals (DAILY MULTIVITAMIN) CAPS Take [...] while on antibiotic 4 Tablet 03/14/20 Active Albuterol Sulfate HFA 108 (90 Base) MCG/ACT Inhalation Aerosol Solution Inhale 2 Puffs by mouth every 6 hours as needed for stomach irritation. 20.1 g 11/28/19 Active Azithromycin 250 MG Oral Tablet (Zithromax Z-Hal) Take two tablets by mouth on first day, then 1 tablet daily until gone 6 Tablet 04/19/20 Active Hospital, Clinic, or Other Facility Administered Medication Ordered Dose Route Frequency Start Date End Date Status Vitamin B-12 (Cyanocobalamin) inj 1,000 mcgIndications:B12 deficiency 1000 mcg IM [id number] 01/27/2024 12/28/2024 Active documented as of this encounter (statuses as of 04/21/2024) Active Problems Problem Noted Date Diagnosed Date Endometrial cancer 03/28/2024 Chronic obstructive pulmonary disease 01/27/2024 Old [place] [...] as of this encounter (statuses as of 04/21/2024) Resolved Problems Problem Noted Date Diagnosed Date [...] as of this encounter (statuses as of 04/21/2024) Immunizations Name Administration Dates Next Due Pneumococcal Conjugate Vacci ne, 20-valent ([id number]) 04/08/2023 Pneumococcal Polysaccharide PPV23 (Pneumovax) 03/20/2016 Seasonal [...] 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, 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 Not on file Travel History Travel Start Travel End [place] 04/08/2024 04/14/2024 documented as of this encounter Plan of Treatment Upcoming Encounters Date Type Department Care Team (Latest Contact Info) Description 04/25/2024 3:30 PM EST Telemedicine Orthopaedics [facility] [address] [place] [address] Salinas Levine PA-C [address] [place] [address] 04/30/2024 7:15 AM EST Hospital Encounter [place] [facility] [address] [facility] [place] [phone] Shekhar Belle MD [address] [place] [address] 04/30/2024 7:15 AM EST - 04/30/2024 9:16 AM EST Surgery [place] [facility] [address] [place] [phone] Shekhar Belle MD [address] [place] [address] ROBOTIC LAPAROSCOPIC HYSTERECTOMY WITH REMOVAL TUBES AND OVARIES FOR UTERUS GREATER THAN 250GM 05/15/2024 11:00 AM EST Office Visit Gynecology/Oncolog [place] [address] [place] [address] Shekhar Belle MD [address] [place], [place] [phone] 05/17/2024 1:00 PM EST Office Visit Allergy/Immunology [facility] [place] [address] [place] [address] Carlo Arambula MD [address] [place] [address] 06/04/2024 11:30 AM EST Office Visit [facility] [address] [place] [address] Trino Mills CRNP [address] [place] [address] 06/11/2024 10:30 AM EST Office Visit [facility] [address] [place], [place] [address] Дмитрий Love PA-C [address] [place] [address] 08/01/2024 10:15 AM EDT Office Visit Orthopaedics [facility] [address] [place] [address] Salinas Levine PA-C [address] [place] [address] 09/17/2024 11:30 AM EDT Office Visit Cardiology, [facility] [address] [place] [address] Rashaun Felix MD [address] [place] [address] Scheduled Procedures Name Priority Associated Diagnoses Date/Ti [...] 2022 Adult Wellness Visit 2023 COVID-19 Vaccine (1 - 2024-25 season) 2024 Influenza Vaccine (FLU shot) (#1) [...] this encounter Medical Devices Implanted Type Area Commercial Property Administrator Device Identifier Shelf Expiration Date Model / Serial / Lot Lens Intraoc 11.5 - [id number] - [id number] Implanted:Qty: 1 on 12/18/2019 by Azam Boo MD at OR [facility] Left: Eye [employer] 10/06/2021 [id number] / [id number] / Lens Intraoc 11.5 - [id number] - [id number] Implanted:Qty: 1 on 12/31/2019 by Azam Boo MD at OR [facility] Right: Eye [employer]OM[employer] 07/06/2024 [id number] / [id number] / [id number] documented as of this encounter Advance Directives * Full Code (Latest Code Status on File) Date Activated Date Inactivated Comments 11/18/2016 1:02 PM 11/19/2016 3:42 PM This order r eflects the patients wishes and were consensually agreed upon. Care Teams Hospital Ward Clerk Relationship Specialty Start Date End Date Roys Cummins PA-C [address] [facility] [place] [address] PCP - General Physician Supervisor Nurse 02/17/21 documented as of this encounter
--- OUTSIDE RECORDS SUMMARY | 2024-06-29 11:01 | External Medical Summary | Summary of Care ---
Author Name Unknown Organization [facility] Address [address] [place] [address] Phone [phone] Care Team Providers Care Medical Assistant Ob Gyn Name Role Phone Rosy Cummins PA-C Primary Care Provider [phone] Reason for Visit * Reason Comments Consultation New patient * Evaluate & Treat - Unlimited Visits (Within 3 days (urgent)) - Authorized Specialty Diagnoses / Procedures Referred By Contterry t Referred To Contact Gynecologic Oncology / Gynecology Oncology Diagnoses Malignant neoplasm of endometrium (HCC) Jefe Lagunas MD [address] [place] [address] Phone: tel: fax: Referral ID Status Reason Start Date Expiration Date Visits Requested Visits Authorized [id number] Authorized Specialty Services Required [phone] Encounter Details Date Type Department Care Team (Late st Contact Info) Description 04/18/2024 11:00 AM EST Office Visit Gynecology/Oncology, [place] [address] [place] [address] Shekhar Belle MD [address] [place] [address] Endometrial cancer (HCC)* Allergies Active Allergy Reactions Criticality Noted Date Comments Azelastine Nausea/vomiting 12/29/2023 Cetirizine Other (Please comment) 11/22/2021 headache Latex Rash 10/14/2021 Metoprolol Unknown 10/14/2021 Sulfa Antibiotics 08/13/2002 bactrim only-itching afater 1 week Tartaric Acid Unknown 10/14/2021 Valacyclovir 11/23/2022 Renal calculi documented as of this encounter (statuses as of 04/18/2024) Medications Multiple Vitamins-Minerals (DAILY MULTIVITAMIN) CAPS Take [...] stomach irritation. 20.1 g 11/28/19 24 Active Hospital, Clinic, or Other Facility Administered Medication Ordered Dose Route Frequency Start Date End Date Status Vitamin B-12 (Cyanocobalamin) inj 1,000 mcgIndications:B12 deficiency 1000 mcg IM [id number] 01/27/2024 12/28/2024 Active documented as of this encounter (statuses as of 04/18/2024) Active Problems Problem Noted Date Diagnosed Date Endometrial cancer 03/28/2024 Chronic obstructive pulmonary disease 01/27/2024 Old DC (myocardial infarction) 01/27/2024 Prediabetes 12/19/2023 Overview: Per [...] as of this encounter (statuses as of 04/18/2024) Resolved Problems Problem Noted Date Diagnosed Date [...] as of this encounter (statuses as of 04/18/2024) Immunizations Name Administration Dates Next Due Hepatitis B, 20+ yrs 11/23/2000,05/20/2000,02/2310/18/2000 Influenza, Whole Virus 03/10/1999 PPD 10/31/2001,03/24/1999,01/19/1994 Pneumococcal Conjugate Vacci ne, 20-valent ([id number]) 04/08/2023 Pneumococcal Polysaccharide PPV23 (Pneumovax) 03/20/2016,02/24/2000 Seasonal [...] 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, 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 Not on file Travel History Travel Start Travel End [place] 04/08/2024 04/14/2024 documented as of this encounter Last Filed Vital Signs Vital Sign Reading Time Taken Comments Blood Pressure 172/90 04/18/2024 11:17 AM EST Pulse - - Temperature - - Respiratory Rate - - Oxygen Saturation - - Inhaled Oxygen Concentration - - Weight 101.6 kg (224 lb) 04/18/2024 11:17 AM EST Height - - Body Mass Index 40.97 03/14/2024 10:12 AM EST documented in this encounter Progress Notes * Shekhar Belle MD - 04/18/2024 11:00 AM EST CC: 69 year old female who presents today [...] 13.3 CEA: 2.3 Ca 19-9: 25.1 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 HISTORY: Menstrual Status: postmenopausal Pap smear history: yes, February 2024 Hormone Use: No Urinary or fecal issues: Denies PAST OB HISTORY: , spontaneous vaginal delivery x2 HEALTH MAINTENANCE: Mammogram: 11/09/2023 ; BI-RADS category 1 Last Pap: February 2024 Colonoscopy: 07/27/2016 ; Follow-up in 10 years Past Surgical History: Procedure Laterality Date CARPAL TUNNEL SURGERY Bilateral COLONOSCOPY, DIAGNOSTIC (RECTUM) 07/27/2016 diverticulosis, repeat 5 yrs/[facility] EGD, FLEXIBLE, DIAGNOSTIC 09/10/2014 Schatzki ring, normal bx/[facility] EGD, FLEXIBLE, DIAGNOSTIC 07/27/2016 normal bx/[facility] ELECTROPHYSIOLOGY EVAL, ATRIAL FIB, PULMONARY VEIN ISOL Bilateral 11/18/2016 ELECTROPHYSIOLOGY EVAL, ATRIAL FIB, PULMONARY VEIN ISOL performed by Denisha Ramirez IV, MD at [facility] [place]/TOE SURGERY NEC 10 surgeries total, cow stepped on her foot INFORMATION 12/24/2014 Loop Recorder: Bawte Linq model# [id number] INJECT DX/THER SUBSTANCE INTERLAMINAR LUMBAR/SACRAL W IMAGE GUIDE 12/13/2022 INJECTION SPINE LUMBAR OR SACRAL performed by Twin Maharaj DO at OR [facility] INJECT DX/THER SUBSTANCE INTERLAMINAR LUMBAR/SACRAL W IMAGE GUIDE 06/01/2023 INJECTION SPINE LUMBAR OR SACRAL performed by Twin Maharaj DO at OR [facility] LAPAROSCOPY; CHOLECYSTECTOMY 06/21/2022 at [facility] by Dr Joyce LIGATE/CUT OVIDUCT(S) Tubal Ligation REMOVE CATARACT, INSERT LENS PROSTH Left 12/18/2019 left EXTRACAPSULAR CATARACT REMOVAL WITH INTRAOCULAR LENS performed by Azam Boo MD at OR [facility] REMOVE CATARACT, INSERT LENS PROSTH Right 12/31/2019 right EXTRACAPSULAR CATARACT REMOVAL WITH INTRAOCULAR LENS performed by Azam Boo MD at OR [facility] REPAIR RUPTURED ROTATOR CUFF, ACUTE Past Medical History: Diagnosis Date Allergic rhinitis Backache Calculus of kidney 1975 Depressive disorder, not elsewhere classified 1998 Dyspnea and respiratory abnormality 08/06/2002 ICD-10 update of inactive term HTN, goal below 140/90 05/21/2016 Migraine with aura Morbid obesity with BMI of 40.0-44.9, adult ([facility]) 04/14/2018 EUSEBIA on CPAP 10/12/2016 PAT (paroxysmal atrial tachycardia) ([facility]) 04/14/2018 Pericarditis, chronic 02/11/2017 Rectocele 04/14/2018 S/P ablation of atrial fibrillation 11/19/2016 Sleep apnea, obstructive Stress incontinence 04/14/2018 Urinary incontinence, urge 04/14/2018 Patient Active Problem List Diagnosis Allergic rhinitis Back disorder Dyspnea and respiratory abnormality Chronic chest pain Snoring HTN, goal below 140/90 EUSEBIA on CPAP S/P ablation of atrial fibrillation Pericarditis, chronic Advanced directives, counseling/discussion Rectocele Stress incontinence PAT (paroxysmal atrial tachycardia) ([facility]) Routine cultures positive for HSV2 Hyperlipidemia with target LDL less than 100 Body mass index (BMI) 40.0-44.9, adult ([facility]) Prediabetes Chronic obstructive pulmonary disease ([facility]) Old DC (myocardial infarction) Endometrial cancer ([facility]) Current Outpatient Medications Medication Sig Dispense Refill [...] HCl 15 MG Oral Tablet (Buspar) Oneh fci to one whole tab by [...] Q4 Weeks 1,000 mcg at 03/14/24 1056 Review of patient's allergies indicates: Allergen Reactions [...] Negative. Psychiatric/Behavioral: Negative. 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 Name of genetic coordinator: N/A IMPRESSION: Undifferentiated uterine carcinoma MANAGEMENT: Today, [...] MD, PhD, FACOG, FACS Chief, Gynecologic Oncology [facility] Electrical Sign Servicer of Obstetrics and Gynecology [facility] documented in this encounter Nursing Notes * Urmila Fitzpatrick TECH - 04/18/2024 11:24 AM EST Kateryna is presented to the clinic today as a new patient with her daughter Kirstie and son Charles documented in this encounter Plan of Treatment Upcoming Encounters Date Type Department Care Team (Late st Contact Info) Description 04/25/2024 3:30 PM EST Telemedicine Orthopaedics [facility] [address] [place] [address] Salinas Levine PA-C [address] [facility] [place] [address] 05/15/2024 11:00 AM EST Office Visit Gynecology/Oncology, [place] [address] [place] [address] Shekhar Belle MD [address] [place] [address] 05/17/2024 1:00 PM EST Office Visit Allergy/Immunology [facility] [address] [facility] [place] [address] Carlo Arambula MD [address] [facility] [place] [address] 06/04/2024 11:30 AM EST [facility] [address] [place], [place] [phone] Trino Mills CRNP [address] [place] [address] 06/11/2024 10:30 AM EST Office Visit Gynecology/Oncology, [place] [address] [place] [address] Дмитрий Love PA-C [address] [place] [address] 08/01/2024 10:15 AM EDT Office Visit Orthopaedics [facility] [address] [facility] [place] [address] Salinas Levine PA-C [address] [place] [address] 09/17/2024 11:30 AM EDT Office Visit Cardiology, [facility] [address] [facility] [place] [address] Rashaun Felix MD [address] [facility] [place] [address] Scheduled Procedures Name Priority Associated Diagnoses Date/Ti me COLONOSCOPY FLEXIBLE PROXIMA L DIAGNOSTIC Recall Encounter for screening colonoscopy Scheduled Referrals Name Type Priority Associated Diagnoses Orde r Schedule PACKAGING SALES REPRESENTATIVE/ONC REFERRAL OP Referral Within 3 day s (urgent) Malignant neoplasm of endometrium (HCC) Ordered: 03/28/2024 Health Maintenance Due Date Last Done Comments [...] Albumin/Creatinine Ratio 03/17/2025 03/17/2022 GFR 04/04/2025 04/04/2024, 03/2 12/2023, 03/28/2023, Additional history exists HbA1c 04/04/2025 04/04/2024, [...] this encounter Medical Devices Implanted Type Area Last Repairer Helper Device Identifier Shelf Expiration Date Model / Serial / Lot Lens Intraoc 11.5 - [id number] - [id number] Implanted:Qty: 1 on 12/18/2019 by Azam Boo MD at OR [facility] Left: Eye BAUSCH & LOMB 10/06/2021 [id number] / [id number] / Lens Intraoc 11.5 - [id number] - [id number] Implanted:Qty: 1 on 12/31/2019 by Azam Boo MD at OR [facility] Right: Eye BAUSCH & LOMB 07/06/2024 [id number] / [id number] / [id number] documented as of this encounter Visit Diagnoses Diagnosis Endometrial cancer (HCC)- Primary Malignant neoplasm of corpus uteri, except isthmus documented in this encounter Advance Directives * Full Code (Latest Code Status on File) Date Activated Date Inactivated Comments 11/18/2016 1:02 PM 11/19/2016 3:42 PM This order r eflects the patients wishes and were consensually agreed upon. Care Teams Medical Assistant Ob Gyn Relationship Specialty Start Date End Date Rosy Cummins PA-C [address] [facility] [place] [address] PCP - General Physician Field Underwriter 02/17/21 documented as of this encounter"
--- OUTSIDE RECORDS SUMMARY | 2024-06-29 11:02 | External Medical Summary | Summary of Care ---
Author Name Unknown Organization [facility] Address [address] [place] [facility] [address] Phone [phone] Care Team Providers Care Juice Packaging Machines Setter Name Role Phone Rosy Cummins PA-C Primary Care Provider [phone] Reason for Visit * Reason Onset Date Comments Advice 03/26/2024 Encounter Details Date Type Department Care Team (Late st Contact Info) Description 03/26/2024 Telephone [facility] [address] [place] [facility] [place] [address] Rosy Cummins PA-C [address] [facility] [facility] [place], [place] [id number] Advice Allergies Active Allergy Reactions Criticality Noted Date Comments Azelastine Nausea/vomiting 12/29/2023 Cetirizine Other (Please comment) 11/22/2021 headache Latex Rash 10/14/2021 Metoprolol Unknown 10/14/2021 Sulfa Antibiotics 08/13/2002 bactrim only-itching afater 1 week Tartaric Acid Unknown 10/14/2021 Valacyclovir 11/23/2022 Renal calculi documented as of this encounter (statuses as of 04/04/2024) Medications Multiple Vitamins-Minerals (DAILY MULTIVITAMIN) CAPS Take [...] 4 9:05 AM EDT 11/23/19 24 Active Albuterol Sulfate HFA 108 (90 Base) MCG/ACT Inhalation Aerosol Solution Inhale 2 Puffs by mouth every 6 hours as needed (stomach irritation). 54 g 1 4 5:20 PM EDT 11/28/19 24 Active Omeprazole 40 MG Oral Capsule [...] 25 Tablet 11 4 3:40 PM EST 11/06/20 24 Active rOPINIRole HCl 0.25 MG Oral [...] on antibiotic 4 Tablet 03/14/20 24 Active Atorvastatin Calcium 40 MG Oral Tablet (Lipitor)Indication s:Hyperlipidemia with target LDL less than 100 Take 1 Tablet by mouth in the morning. 100 Tablet 3 4 6:08 PM EST 04/08/20 23 024 Discontin ued(Patie nt preferenc e/discont inuation) Hospital, Clinic, or Other Facility Administered Medication Ordered Dose Route Frequency Start Date End Date Status Vitamin B-12 (Cyanocobalamin) inj 1,000 mcgIndications:B12 deficiency 1000 mcg IM [id number] 01/27/2024 12/28/2024 Active documented as of this encounter (statuses as of 04/04/2024) Active Problems Problem Noted Date Diagnosed Date [...] as of this encounter (statuses as of 04/04/2024) Resolved Problems Problem Noted Date Diagnosed Date [...] as of this encounter (statuses as of 04/04/2024) Immunizations Name Administration Dates Next Due Hepatitis B, 20+ yrs 11/23/2000,05/20/2000,02/2310/18/2000 Influenza, Whole Virus 03/10/1999 PPD 10/31/2001,03/24/1999,01/19/1994 Pneumococcal Conjugate Vacci ne, 20-valent ([id number]) 04/08/2023 Pneumococcal Polysaccharide PPV23 (Pneumovax) 03/20/2016,02/24/2000 Seasonal [...] 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 She wanted to make you aware that she had a bunch of scans done today as well and would like you toreview them as she had a diagnosis of cancer from the cyst that was removed. * Telephone Encounter - Jefe Lagunas MD - 03/28/2024 12:34 PM EST Called and spoke to pt at home today after she cancelled her appt today. Had to inform pt about her cancer dx TIP CEMENTER Onc referral placed Pt is encouraged to attend appointment * Telephone Encounter - Rosy Cummins PA-C - 03/26/2024 1:49 PM EST We could try a different statin, she could try taking the one she has every other day or every 3rd day to not waste meds, or we can put her on a totally different class of med Rosy Cummins PA-C * Telephone Encounter - Grey Teixeira LPN - 03/26/2024 12:48 PM EST Patient calling in today. She just received a new order of Atorvastatin in the mail today and she states at 03/14 appt that she talk to Rosy Cummins PA-C about side effects from the medication. Side effects noted was all over aches and subsided after stopping medication. See 02/13 66. com message on issues with the medication. Atorvastatin taken off med list due to side effects and does not receive anymore from mail order pharmacy. Please advice different med? documented in this encounter Plan of Treatment Upcoming Encounters Date Type Department Care Team (Late st Contact Info) Description 04/18/2024 11:00 AM EST Office Visit Gynecology/Oncology, [place] [address] [place] [address] Shekhar Belle MD [address] [place] [address] 04/25/2024 3:30 PM EST Telemedicine Orthopaedics [facility] [address] [place] [address] Salinas Levine PA-C [address] [place] [address] 05/17/2024 1:00 PM EST Office Visit Allergy/Immunology [facility] [address] [facility] [place] [address] Carlo Arambula MD [address] [facility] [place] [address] 06/04/2024 11:30 AM EST Office Visit [facility] [place] [place] [address] [place] [address] Trino Mills CRNP [address] [place] [address] 08/01/2024 10:15 AM EDT Office Visit Orthopaedics [facility] [address] [place] [address] Salinas Levine PA-C [address] [place] [address] 09/17/2024 11:30 AM EDT Office Visit Cardiology, [facility] [address] [place] [address] Rashaun Felix MD [address] [place] [address] Scheduled Procedures Name Priority Associated Diagnoses Date/Ti me COLONOSCOPY FLEXIBLE PROXIMA L DIAGNOSTIC Recall Encounter for screening colonoscopy Health Maintenance Due Date Last Done Comments Alpha-1 Antitrypsin 1975 Cologuard 2002 Fecal Occult Blood Test 2002 08/20/1999 Sigmoidoscopy 2002 Colonoscopy 07/27/2021 07/27/2016 Colorectal Cancer Screening 07/27/2021 DXA Scan 2022 Adult Wellness Visit 2023 COVID-19 Vaccine ( season) 2024 Influenza Vaccine (FLU shot) (#1) 2024 02/09/2012, 02/16/2011, 05/03/2001, Additional history exists *COPD SEVERITY VERIFIED BY PFT 01/29/2024 Depression Screening 08/03/2024 08/04/2023 GFR 08/03/2024 08/04/2023, 11/, 01/14/2023, Additional history exists Mammogram 11/08/2024 11/09/2023, 10/09, 06/27/2015, Additional history exists HbA1c 11/13/2024 11/14/2023, 03/10, 09/24/2021, Additional history exists O2 ASSESSMENT COMPLETED IN PAST YEAR FOR COPD 03/14/2025 03/14/2024 Albumin/Creatinine Ratio 03/17/2025 03/17/2022 Lipid Panel 01/15/2028 01/14/2023, 09/06, 11/05/2020, Additional history exists DTap/Tdap Vaccines (5 - Td or Tdap) 10/15/2031 10/14/2021, 09/17/2017, 02/17/2012, Additional history exists Hepatitis B Vaccine Completed 11/23/2000, 05/20/2000, 02/24/2000 RETIRED - COLONOSCOPY-EVERY 5 YRS AGES 18-100 Discontinued 07/27/2016 Pap Smear Discontinued 01/03/2023, 04/08, 06/23/2006, Additional history exists Pneumococcal Vaccine: 65+ Years Completed 04/08/2023, 03/20/2016, 02/24/2000 HPV (Gardasil) Vaccine Aged Out No lo nger eligible based on patient's age to complete this topic MENINGOCOCCAL (MENACTRA/MENVEO) Aged Out No longer eligible based on patient's age to complete this topic Zoster Vaccines Discontinued documented as of this encounter Medical Devices Implanted Type Area Game Operator Device Identifier Shelf Expiration Date Model / Serial / Lot Lens Intraoc 11.5 - [id number] - [id number] Implanted:Qty: 1 on 12/18/2019 by Azam Boo MD at OR [facility] Left: Eye BAUSCH & LOMB 10/06/2021 [id number] / [id number] / Lens Intraoc 11.5 - [id number] - [id number] Implanted:Qty: 1 on 12/31/2019 by Azam Boo MD at OR [facility] Right: Eye BAUSCH & LOMB 07/06/2024 [id number] / [id number] / [id number] documented as of this encounter Advance Directives * Full Code (Latest Code Status on File) Date Activated Date Inactivated Comments 11/18/2016 1:02 PM 11/19/2016 3:42 PM This order r eflects the patients wishes and were consensually agreed upon. Care Teams Juice Packaging Machines Setter Relationship Specialty Start Date End Date Rosy Cummins PA-C [address] [place] [address] PCP - General Physician Aerospace Quality Engineer 02/17/21 documented as of this encounter
--- OUTSIDE RECORDS SUMMARY | 2024-06-29 11:02 | External Medical Summary | Summary of Care ---
Author Name Unknown Organization [facility] Address [address] [place] [facility] [place] [address] Phone [phone] Care Team Providers Care Portal Architect Name Role Phone Rosy Cummins PA-C Primary Care Provider [phone] Reason for Visit * Reason Onset Date Comments Advice 03/26/2024 Encounter Details Date Type Department Care Team (Late st Contact Info) Description 03/26/2024 Telephone [facility] [address] [place] [facility] [place] [address] Rosy Cummins PA-C [address] [facility] [place], [place] [id number] Advice Allergies Active Allergy Reactions Criticality Noted Date Comments Azelastine Nausea/vomiting 12/29/2023 Cetirizine Other (Please comment) 11/22/2021 headache Latex Rash 10/14/2021 Metoprolol Unknown 10/14/2021 Sulfa Antibiotics 08/13/2002 bactrim only-itching afater 1 week Tartaric Acid Unknown 10/14/2021 Valacyclovir 11/23/2022 Renal calculi documented as of this encounter (statuses as of 04/09/2024) Medications Multiple Vitamins-Minerals (DAILY MULTIVITAMIN) CAPS Take [...] inj 1,000 mcgIndications:B12 deficiency 1000 mcg IM [id number] 01/27/2024 12/28/2024 Active documented as of this encounter (statuses as of 04/09/2024) Active Problems Problem Noted Date Diagnosed Date [...] as of this encounter (statuses as of 04/09/2024) Resolved Problems Problem Noted Date Diagnosed Date [...] as of this encounter (statuses as of 04/09/2024) Immunizations Name Administration Dates Next Due Hepatitis B, 20+ yrs 11/23/2000,05/20/2000,02/2310/18/2000 Influenza, Whole Virus 03/10/1999 PPD 10/31/2001,03/24/1999,01/19/1994 Pneumococcal Conjugate Vacci ne, 20-valent ([id number]) 04/08/2023 Pneumococcal Polysaccharide PPV23 (Pneumovax) 03/20/2016,02/24/2000 Seasonal [...] 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 See 02/13 [employer] message on issues with the medication. Atorvastatin taken off med list due to side effects and does not receive anymore from mail order pharmacy. Please advice different med? documented in this encounter Plan of Treatment Upcoming Encounters Date Type Department Care Team (Late st Contact Info) Description 04/18/2024 11:00 AM EST Office Visit Gynecology/Oncology, [place] [address] [place] [address] Shekhar Belle MD [address] [place] [address] 04/25/2024 3:30 PM EST Telemedicine Orthopaedics [facility] [address] [place] [place] [address] Salinas Levine PA-C [address] [place] [address] 05/17/2024 1:00 PM EST Office Visit Allergy/Immunology [facility] [address] [facility] [place] [address] Carlo Arambula MD [address] [facility] [place] [address] 06/04/2024 11:30 AM EST Office Visit [facility] [place] [address] [place] [address] Trino Mills CRNP [address] [place] [address] 08/01/2024 10:15 AM EDT Office Visit Orthopaedics [facility] [address] [place] [address] Salinas Levine PA-C [address] [place] [address] 09/17/2024 11:30 AM EDT Office Visit Cardiology, [facility] [address] [place] [address] Rashaun Felix MD [address] [place] [address] Scheduled Procedures Name Priority Associated Diagnoses Date/Ti [...] this encounter Medical Devices Implanted Type Area Account Administrator Device Identifier Shelf Expiration Date Model / Serial / Lot Lens Intraoc 11.5 - [id number] - [id number] Implanted:Qty: 1 on 12/18/2019 by Azam Boo MD at OR [facility] Left: Eye BAUSCH & LOMB 10/06/2021 [id number] / [id number] / Lens Intraoc 11.5 - [id number] - [id number] Implanted:Qty: 1 on 12/31/2019 by Azam Boo MD at OR [facility] Right: Eye BAUSCH & LOMB 07/06/2024 [id number] / [id number] / [id number] documented as of this encounter Advance Directives * Full Code (Latest Code Status on File) Date Activated Date Inactivated Comments 11/18/2016 1:02 PM 11/19/2016 3:42 PM This order r eflects the patients wishes and were consensually agreed upon. Care Teams Portal Architect Relationship Specialty Start Date End Date Rosy Cummins PA-C [address] [facility] [place] [address] PCP - General Physician Textile Science Technician 02/17/21 documented as of this encounter
--- OUTSIDE RECORDS SUMMARY | 2024-06-29 11:02 | External Medical Summary | Summary of Care ---
Author Name Unknown Organization [facility] Address [address] [place] [address] Phone [phone] Care Team Providers Care Teacher Of Gifted Students Name Role Phone Rosy Cummins PA-C Primary Care Provider [phone] [phone] Encounter Details Date Type Department Care Team (Late st Contact Info) Description 04/12/2024 Orders Only Gynecology/Oncology, [place] [address] [place], [place] [id number] Nara Espinoza PA-C [address] [place] [address] Endometrial cancer (HCC)* Allergies Active Allergy Reactions Criticality Noted Date Comments Azelastine Nausea/vomiting 12/29/2023 Cetirizine Other (Please comment) 11/22/2021 headache Latex Rash 10/14/2021 Metoprolol Unknown 10/14/2021 Sulfa Antibiotics 08/13/2002 bactrim only-itching afater 1 week Tartaric Acid Unknown 10/14/2021 Valacyclovir 11/23/2022 Renal calculi documented as of this encounter (statuses as of 04/12/2024) Medications Multiple Vitamins-Minerals (DAILY MULTIVITAMIN) CAPS Take [...] 15 MG Oral Tablet (Buspar)Indications :Stress Oneh assisted to one whole tab by mouth up [...] Tablet 11 4 3:40 PM EST 03/14/20 Active Amoxicillin-Pot Clavulanate 875-125 MG Oral Tablet [...] inj 1,000 mcgIndications:B12 deficiency 1000 mcg IM [id number] 01/27/2024 12/28/2024 Active documented as of this encounter (statuses as of 04/12/2024) Active Problems Problem Noted Date Diagnosed Date Endometrial cancer 03/28/2024 Chronic obstructive pulmonary disease 01/27/2024 Old [place] [...] as of this encounter (statuses as of 04/12/2024) Resolved Problems Problem Noted Date Diagnosed Date [...] as of this encounter (statuses as of 04/12/2024) Immunizations Name Administration Dates Next Due Pneumococcal Conjugate Vacci ne, 20-valent ([id number]) 04/08/2023 Pneumococcal Polysaccharide PPV23 (Pneumovax) 03/20/2016 Seasonal [...] 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, 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 Not on file documented as of this encounter Plan of Treatment Upcoming Encounters Date Type Department Care Team (Late st Contact Info) Description 04/18/2024 11:00 AM EST Office Visit Gynecology/Oncology, [place] [address] [place] [address] Shekhar Belle MD [address] [place] [address] 04/25/2024 3:30 PM EST Telemedicine Orthopaedics [facility] [address] [facility] [place] [address] Salinas Levine PA-C [address] [place] [address] 05/17/2024 1:00 PM EST Office Visit Allergy/Immunology [facility] [address] [place] [address] Carlo Arambula MD [address] [place] [address] 06/04/2024 11:30 AM EST Office Visit Interventional Pain Ctr [facility] [address] [place] [address] Trino Mills CRNP [address] [place] [address] 08/01/2024 10:15 AM EDT Office Visit Orthopaedics [facility] [address] [facility] [place] [address] Salinas Levine PA-C [address] [facility] [place] [address] 09/17/2024 11:30 AM EDT Office Visit Cardiology, [facility] [address] [place] [address] Rashaun Felix MD [address] [place] [address] Pending Results Name Type Priority Associated Diagnoses Date /Time MICROSLIDE CONSULTATION Pathology Routine Endometrial cancer (HCC) 04/12/2024 8:26 AM EST Scheduled Procedures Name Priority Associated Diagnoses [...] Albumin/Creatinine Ratio 03/17/2025 03/17/2022 GFR 04/04/2025 04/04/2024, 032 12/2023, 03/28/2023, Additional history exists HbA1c 04/04/2025 [...] this encounter Medical Devices Implanted Type Area Acute Dialysis Nurse Device Identifier Shelf Expiration Date Model / Serial / Lot Lens Intraoc 11.5 - [id number] - [id number] Implanted:Qty: 1 on 12/18/2019 by Azam Boo MD at OR [facility] Left: Eye BAUSCH & LOMB 10/06/2021 [id number] / [id number] / Lens Intraoc 11.5 - [id number] - [id number] Implanted:Qty: 1 on 12/31/2019 by Azam Boo MD at OR [facility] Right: Eye BAUSCH & LOMB 07/06/2024 [id number] / [id number] / [id number] documented as of this encounter Visit Diagnoses Diagnosis Endometrial cancer (HCC)- Primary Malignant neoplasm of corpus uteri, except isthmus documented in this encounter Advance Directives * Full Code (Latest Code Status on File) Date Activated Date Inactivated Comments 11/18/2016 1:02 PM 11/19/2016 3:42 PM This order r eflects the patients wishes and were consensually agreed upon. Care Teams Teacher Of Gifted Students Relationship Specialty Start Date End Date Rosy Cummins PA-C [facility] [place] [address] PCP - General Physician Formal Service Waiter 02/17/21 documented as of this encounter
--- OUTSIDE RECORDS SUMMARY | 2024-06-29 11:02 | External Medical Summary | Summary of Care ---
Author Name Unknown Organization [facility] Address [address] [place] [address] Phone [phone] Care Team Providers Care Cma Name Role Phone Rosy Cummins PA-C Primary Care Provider [phone] [phone] Reason for Visit * Reason Comments Consultation New patient * Evaluate & Treat - Unlimited Visits (Within 3 days (urgent)) - Authorized Specialty Diagnoses / Procedures Referred By Contterry t Referred To Contact Gynecologic Oncology / Gynecology Oncology Diagnoses Malignant neoplasm of endometrium (HCC) Jefe Lagunas MD [address] [place] [address] Phone: tel: fax: Referral ID Status Reason Start Date Expiration Date Visits Requested Visits Authorized [id number] Authorized Specialty Services Required [phone] Encounter Details Date Type Department Care Team (Late st Contact Info) Description 04/18/2024 11:00 AM EST Office Visit Gynecology/Oncology, [place] [address] [place] [address] Shekhar Belle MD [address] [place] [address] Endometrial cancer (HCC)* Allergies Active Allergy Reactions [...] inj 1,000 mcgIndications:B12 deficiency 1000 mcg IM [id number] 01/27/2024 12/28/2024 Active documented as of this encounter (statuses as of 04/18/2024) Active Problems Problem Noted Date Diagnosed Date Endometrial cancer 03/28/2024 Chronic obstructive pulmonary disease 01/27/2024 Old [place] [...] PPD 10/31/2001,03/24/1999,01/19/1994 Pneumococcal Conjugate Vacci ne, 20-valent ([id number]) 04/08/2023 Pneumococcal Polysaccharide PPV23 (Pneumovax) 03/20/2016,02/24/2000 Seasonal [...] 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, 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 [...] 13.3 CEA: 2.3 Ca 19-9: 25.1 PAST ICT ANALYST HISTORY: Menstrual Status: postmenopausal Pap smear history: yes, February 2024 Hormone Use: No Urinary or fecal issues: Denies PAST OB HISTORY: , spontaneous vaginal delivery x2 HEALTH MAINTENANCE: Mammogram: 11/09/2023 ; BI-RADS category 1 Last Pap: February 2024 Colonoscopy: 07/27/2016 ; Follow-up in 10 years Past Surgical History: Procedure Laterality Date CARPAL TUNNEL SURGERY Bilateral COLONOSCOPY, DIAGNOSTIC (RECTUM) 07/27/2016 diverticulosis, repeat 5 yrs/[facility] EGD, FLEXIBLE, DIAGNOSTIC 09/10/2014 Schatzki ring, normal bx/[facility] EGD, FLEXIBLE, DIAGNOSTIC 07/27/2016 normal bx/[facility] ELECTROPHYSIOLOGY EVAL, ATRIAL FIB, PULMONARY VEIN ISOL Bilateral 11/18/2016 ELECTROPHYSIOLOGY EVAL, ATRIAL FIB, PULMONARY VEIN ISOL performed by Denisha Ramirez IV, [place] at [facility] [facility] NEC 10 surgeries total, cow stepped on her foot INFORMATION 12/24/2014 Loop Recorder: Frograms Linq model# [id number] INJECT DX/THER SUBSTANCE INTERLAMINAR LUMBAR/SACRAL W IMAGE GUIDE 12/13/2022 INJECTION SPINE LUMBAR OR SACRAL performed by Twin Maharaj DO at OR [facility] INJECT DX/THER SUBSTANCE INTERLAMINAR LUMBAR/SACRAL W IMAGE GUIDE 06/01/2023 INJECTION SPINE LUMBAR OR SACRAL performed by Twin Maharaj DO at OR [facility] LAPAROSCOPY; CHOLECYSTECTOMY 06/21/2022 at [facility] by Dr Joyce LIGATE/CUT OVIDUCT(S) Tubal Ligation REMOVE CATARACT, INSERT LENS PROSTH Left 12/18/2019 left EXTRACAPSULAR CATARACT REMOVAL WITH INTRAOCULAR LENS performed by Azam Boo MD at OR [facility] REMOVE CATARACT, INSERT LENS PROSTH Right 12/31/2019 right EXTRACAPSULAR CATARACT REMOVAL WITH INTRAOCULAR LENS performed by Azam Boo MD at OR [facility] REPAIR RUPTURED ROTATOR CUFF, ACUTE Past Medical History: Diagnosis Date Allergic rhinitis Backache Calculus of kidney 1975 Depressive disorder, not elsewhere classified 1998 Dyspnea and respiratory abnormality 08/06/2002 ICD-10 update of inactive term HTN, goal below 140/90 05/21/2016 Migraine with aura Morbid obesity with BMI of 40.0-44.9, adult ([facility]) 04/14/2018 EUSEBIA on CPAP 10/12/2016 PAT (paroxysmal atrial tachycardia) ([facility]) 04/14/2018 Pericarditis, chronic 02/11/2017 Rectocele 04/14/2018 S/P ablation of atrial fibrillation 11/19/2016 Sleep apnea, obstructive Stress incontinence 04/14/2018 Urinary incontinence, urge 04/14/2018 Patient Active Problem List Diagnosis Allergic rhinitis Back disorder Dyspnea and respiratory abnormality Chronic chest pain Snoring HTN, goal below 140/90 EUSEB[place] on CPAP S/P ablation of atrial fibrillation Pericarditis, chronic Advanced directives, counseling/discussion Rectocele Stress incontinence PAT (paroxysmal atrial tachycardia) ([facility]) Routine cultures positive for HSV2 Hyperlipidemia with target LDL less than 100 Body mass index (BMI) 40.0-44.9, adult ([facility]) Prediabetes Chronic obstructive pulmonary disease ([facility]) [place] (myocardial infarction) Endometrial cancer ([facility]) Current Outpatient Medications Medication Sig Dispense Refill [...] HCl 15 MG Oral Tablet (Buspar) Oneh longterm to one whole tab by mouth up [...] Negative. Psychiatric/Behavioral: Negative. 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 Name of dry drug worker: N/A IMPRESSION: Undifferentiated uterine carcinoma MANAGEMENT: Today, [...] MD, PhD, FACOG, FACS Chief, Gynecologic Oncology [facility] Waterproof Coating Machine Tender of Obstetrics and Gynecology [facility] documented in this encounter Nursing Notes * Urmila Fitzpatrick TECH - 04/18/2024 11:24 AM EST Kateryna is presented to the clinic today as a new patient with her daughter Kirstie and son Charles documented in this encounter Plan of Treatment Upcoming Encounters Date Type Department Care Team (Late st Contact Info) Description 04/25/2024 3:30 PM EST Telemedicine Orthopaedics [facility] [address] [place] [address] Salinas Levine PA-C [address] [facility] [place] [address] 05/15/2024 11:00 AM EST Office Visit Gynecology/Oncology, [place] [address] [place] [address] Shekhar Belle MD [address] [place] [address] 05/17/2024 1:00 PM EST Office Visit Allergy/Immunology [facility] [address] [place] [address] Carlo Arambula MD [address] [place] [address] 06/04/2024 11:30 AM EST [facility] [address] [place], [place] [phone] Trino Mills CRNP [address] [place] [address] 06/11/2024 10:30 AM EST Office Visit Gynecology/Oncology, [place] [address] [place] [address] Дмитрий Love PA-C [address] [place] [address] 08/01/2024 10:15 AM EDT Office Visit Orthopaedics [facility] [address] [place] [address] Salinas Levine PA-C [address] [place] [address] 09/17/2024 11:30 AM EDT Office Visit Cardiology, [facility] [address] [place] [address] Rashaun Felix MD [address] [place] [address] Scheduled Procedures Name Priority Associated Diagnoses Date/Ti me COLONOSCOPY FLEXIBLE PROXIMA L DIAGNOSTIC Recall Encounter for screening colonoscopy Scheduled Referrals Name Type Priority Associated Diagnoses Orde r Schedule ICT ANALYST/ONC REFERRAL OP Referral Within 3 day s [...] this encounter Medical Devices Implanted Type Area Motel Manager Device Identifier Shelf Expiration Date Model / Serial / Lot Lens Intraoc 11.5 - [id number] - [id number] Implanted:Qty: 1 on 12/18/2019 by Azam Boo MD at OR [facility] Left: Eye BAUSCH & LOMB 10/06/2021 [id number] / [id number] / Lens Intraoc 11.5 - [id number] - [id number] Implanted:Qty: 1 on 12/31/2019 by Azam Boo MD at OR [facility] Right: Eye BAUSCH & LOMB 07/06/2024 [id number] / [id number] / [id number] documented as of this encounter Visit Diagnoses Diagnosis Endometrial cancer (HCC)- Primary Malignant neoplasm of corpus uteri, except isthmus documented in this encounter Advance Directives * Full Code (Latest Code Status on File) Date Activated Date Inactivated Comments 11/18/2016 1:02 PM 11/19/2016 3:42 PM This order r eflects the patients wishes and were consensually agreed upon. Care Teams Cma Relationship Specialty Start Date End Date Rosy Cummins PA-C [address] [facility] [place] [address] PCP - General Physician Medical Administrator 02/17/21 documented as of this encounter"
--- OUTSIDE RECORDS SUMMARY | 2024-06-29 11:02 | External Medical Summary | Summary of Care ---
Author Name Unknown Organization [facility] Address [address] [place] [place] [address] Phone [phone] Care Team Providers Care Repairer Switchgear Name Role Phone Rosy Cummins PA-C Primary Care Provider [phone] [phone] Reason for Visit * Reason Onset Date Comments Advice 03/26/2024 Encounter Details Date Type Department Care Team (Late st Contact Info) Description 03/26/2024 Telephone [facility] [address] [place] [address] Rosy Cummins PA-C [address] [facility] [facility] [place], [place] [id number] Advice Allergies Active Allergy Reactions Criticality Noted Date Comments Azelastine Nausea/vomiting 12/29/2023 Cetirizine Other (Please comment) 11/22/2021 headache Latex Rash 10/14/2021 Metoprolol Unknown 10/14/2021 Sulfa Antibiotics 08/13/2002 bactrim only-itching afater 1 week Tartaric Acid Unknown 10/14/2021 Valacyclovir 11/23/2022 Renal calculi documented as of this encounter (statuses as of 04/11/2024) Medications Multiple Vitamins-Minerals (DAILY MULTIVITAMIN) CAPS Take [...] inj 1,000 mcgIndications:B12 deficiency 1000 mcg IM [id number] 01/27/2024 12/28/2024 Active documented as of this encounter (statuses as of 04/11/2024) Active Problems Problem Noted Date Diagnosed Date Endometrial cancer 03/28/2024 Chronic obstructive pulmonary disease 01/27/2024 Old [place] (myocardial infarction) 01/27/2024 Prediabetes 12/19/2023 Overview: Per [...] as of this encounter (statuses as of 04/11/2024) Resolved Problems Problem Noted Date Diagnosed Date [...] as of this encounter (statuses as of 04/11/2024) Immunizations Name Administration Dates Next Due Hepatitis B, 20+ yrs 11/23/2000,05/20/2000,02/2310/18/2000 Influenza, Whole Virus 03/10/1999 PPD 10/31/2001,03/24/1999,01/19/1994 Pneumococcal Conjugate Vacci ne, 20-valent ([id number]) 04/08/2023 Pneumococcal Polysaccharide PPV23 (Pneumovax) 03/20/2016,02/24/2000 Seasonal [...] 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 See 02/13 Backupify message on issues with the medication. Atorvastatin taken off med list due to side effects and does not receive anymore from mail order pharmacy. Please advice different med? documented in this encounter Plan of Treatment Upcoming Encounters Date Type Department Care Team (Late st Contact Info) Description 04/18/2024 11:00 AM EST Office Visit Gynecology/Oncology, [place] [address] [place] [address] Shekhar Belle MD [address] [place] [address] 04/25/2024 3:30 PM EST Telemedicine Orthopaedics [facility] [address] [facility] [place] [address] Salinas Levine PA-C [address] [facility] [address] 05/17/2024 1:00 PM EST Office Visit Allergy/Immunology [facility] [address] [facility] [place] [address] Carlo Arambula MD [address] [place] [address] 06/04/2024 11:30 AM EST Office Visit Interventional Pain Ctr [facility] [address] [place] [address] Trino Mills CRNP [address] [place] [address] 08/01/2024 10:15 AM EDT Office Visit Orthopaedics [facility] [address] [facility] [place] [address] Salinas Levine PA-C [address] [facility] [place] [address] 09/17/2024 11:30 AM EDT Office Visit Cardiology, [facility] [address] [facility] [place] [address] Rashaun Felix MD [address] [facility] [place] [address] Scheduled Procedures Name Priority Associated Diagnoses Date/Ti [...] this encounter Medical Devices Implanted Type Area Spar Machine Operator Device Identifier Shelf Expiration Date Model / Serial / Lot Lens Intraoc 11.5 - [id number] - [id number] Implanted:Qty: 1 on 12/18/2019 by Azam Boo MD at OR [facility] Left: Eye BAUSCH & LOMB 10/06/2021 [id number] / [id number] / Lens Intraoc 11.5 - [id number] - [id number] Implanted:Qty: 1 on 12/31/2019 by Azam Boo MD at OR [facility] Right: Eye BAUSCH & LOMB 07/06/2024 [id number] / [id number] / [id number] documented as of this encounter Advance Directives * Full Code (Latest Code Status on File) Date Activated Date Inactivated Comments 11/18/2016 1:02 PM 11/19/2016 3:42 PM This order r eflects the patients wishes and were consensually agreed upon. Care Teams Repairer Switchgear Relationship Specialty Start Date End Date Rosy Cummins PA-C [address] [place] [address] PCP - General Physician Apron Man 02/17/21 documented as of this encounter
--- OUTSIDE RECORDS SUMMARY | 2024-06-29 11:03 | External Medical Summary ---
Author Name Unknown Address Unknown Organization [id number]:[facility] [place] [address] [place] [address] Laboratory Report Ordering Provider Test Date Status NIAARICLATA 04/04/2024 09:11:21 Final Exclude Heart Failure: <300 pg/mL
Diagnose Heart Failure:
Age <50 yr: >450 pg/mL
50-75 yr: >900 pg/mL
>75 yr: >1800 pg/mL
GFR is 30-59 mL/min: >1200 pg/mL or Age- adjusted values
GFR <30 mL/min: do not use, not reliable

Prognostic threshold: 1000 pg/mL Observation Date Value Abnormality Reference (Units ) Status BNP, Pro-hormone 04/04/2024 09:11:21 83 <30 0 (pg/mL) Final Performing Location [facility] [place] [facility] [address] [place] [address]
--- OUTSIDE RECORDS SUMMARY | 2024-06-29 11:03 | External Medical Summary ---
Author Name Unknown Address Unknown Organization [id number]:[facility] [place] - [facility] [address] [facility] [address] [place] [address] Laboratory Report Ordering Provider Test Date Status INDERJIT KRAMER 04/04/2024 09:11:21 Final Observation Date Value Abnormality Reference (Units ) Status BUN 04/04/2024 09:11:21 21 Above high normal 6-20 (mg/dL) Final Creatinine 04/04/2024 09:11:21 0.6 0.5-1.0 (mg/dL) Final Glomerular filtration rate/1.73 sq M.predicted [Volume Rate/Area] in Serum, Plasma or Blood by Creatinine-based formula (CKD-EPI) 04/04/2024 09:11:21 >90 >=60 (mL/min) Final eGFR is calculated based on the CKD-EPI 2020 equation. Sodium 04/04/2024 09:11:21 137 135-146 (m mol/L) Final Potassium 04/04/2024 09:11:21 4.8 3.5-5.1 (m mol/L) Final Cl 04/04/2024 09:11:21 98 98-107 (mm ol/L) Final CO2 04/04/2024 09:11:21 27 22-32 (mmo l/L) Final Anion gap 04/04/2024 09:11:21 12 7-15 (mmol /L) Final Glucose 04/04/2024 09:11:21 95 70-120 (mg /dL) Final Calcium 04/04/2024 09:11:21 9.9 8.4-10.2 ( mg/dL) Final Albumin 04/04/2024 09:11:21 4.2 3.8-5.0 (g /dL) Final Phosphate 04/04/2024 09:11:21 3.5 2.5-4.8 (m g/dL) Final Performing Location [facility] [place] - [address] [place] [address]
--- OUTSIDE RECORDS SUMMARY | 2024-06-29 11:03 | External Medical Summary ---
Author Name Unknown Address Unknown Organization : Laboratory Report Ordering Provider Test Date Status INDERJIT KRAMER 04/04/2024 09:11:21 Final Observation Date Value Abnormality Reference (Units ) Status Alpha-1 antitrypsin 04/04/2024 09:11:21 137 83-199 (mg/dL) Final Test Performed at:
[facility]
[address] [facility]
[place] [address]
Lan Borges M.D., Ph.D.,Director of Laboratories Performing Location
--- OUTSIDE RECORDS SUMMARY | 2024-06-29 11:03 | External Medical Summary ---
Author Name Unknown Address Unknown Organization K01:[facility] [place] - [address] [place] [address] Laboratory Report Ordering Provider Test Date Status FIGUEROA MOREL 04/04/2024 09:11:21 Final Observation Date Value Abnormality Reference (Units ) Status MYCODE SPECIMEN-SST 04/04/2024 09:11:21 Freezing of extracted DNA, whole blood and/or serum. Final Performing Location LABOR[facility]ORY [facility] [place] - [address] [place] [address]
--- OUTSIDE RECORDS SUMMARY | 2024-06-29 11:03 | External Medical Summary ---
Author Name Unknown Address Unknown Organization K01[place] [place] [address] [place] [address] Laboratory Report Ordering Provider Test Date Status FIGUEROA MOREL 04/04/2024 09:11:21 Final Observation Date Value Abnormality Reference (Units ) Status MYCODE SPECIMEN-SST 04/04/2024 09:11:21 Freezing of extracted DNA, whole blood and/or serum. Final Performing Location [facility] [place] [address] [place] [address]
--- OUTSIDE RECORDS SUMMARY | 2024-06-29 11:03 | External Medical Summary ---
Author Name Unknown Address Unknown Organization K01:LABORATORY [facility] - [address] [place] [address] Laboratory Report Ordering Provider Test Date Status MUKUL MCBRIDE 04/04/2024 09:11:21 Final Observation Date Value Abnormality Reference (Units ) Status Magnesium 04/04/2024 09:11:21 2.1 1.5-2.6 (m g/dL) Final Performing Location LABORATORY [facility] - [address] [place] [address]
--- OUTSIDE RECORDS SUMMARY | 2024-06-29 11:03 | External Medical Summary ---
Author Name Unknown Address Unknown Organization K01:LABORATORY [facility] [place] - [facility] [address] [facility] [address] [facility] [address] Laboratory Report Ordering Provider Test Date Status NIAARICLATA 04/04/2024 09:11:21 Final Observation Date Value Abnormality Reference (Units ) Status HbA1C 04/04/2024 09:11:21 6.0 Above high normal 4. 0-5.6 (%) Final The use of HbA1c to monitor glycemic status is based on normal hemoglobin and HbA composition. This test should not be used in patients with abnormal hemoglobin that affects the half life of the red blood cell or the in vivo glycation rates. Glucose, estimated average 04/04/2024 09:11:21 126 Above high normal <126 (mg/dL) Jasiel stevens Performing Location LABORATORY [facility] [place] - [address] [facility] [address] [facility] [address]
--- OUTSIDE RECORDS SUMMARY | 2024-06-29 11:03 | External Medical Summary ---
Author Name Unknown Address Unknown Organization K01:[facility] [place] [address] [place] [address] Laboratory Report Ordering Provider Test Date Status NIAARICLATA 04/04/2024 09:11:21 Final Observation Date Value Abnormality Reference (Units ) Status TSH 04/04/2024 09:11:21 1.43 0.27-4.20 (uIU/mL) Final Performing Location LABORATORY C - [address] [place] [address]
--- OUTSIDE RECORDS SUMMARY | 2024-06-29 11:03 | External Medical Summary | Summary of Care ---
Author Name Unknown Organization [facility] Address [address] [place] [address] Phone [phone] Care Team Providers Care Specifications Checker Name Role Phone Rosy Cummins PA-C Primary Care Provider [phone] -[phone] Reason for Referral * Precert (Within 10 days (routine)) - Pending Review Specialty Diagnoses / Procedures Referred By Jeremías staley Referred To Contact Radiology Diagnoses Undifferentiated carcinoma of uterus (HCC) Neoplasm related pain Procedures CT CHEST/ABDOMEN/PELVIS WITH IV CONTRAST WITH ORAL CONTRAST Nara Espinoza PA-C [address] [facility] [place] [address] Phone: tel: fax: Referral ID Status Reason Start Date Expiration Date V isits Requested Visits Authorized [id number] Pending Review 03/28/[phone] Encounter Details Date Type Department Care Team (Late st Contact Info) Description 03/28/2024 Orders Only Gynecology/Oncology, [place] [address], [place] [id number] Nara Espinoza PA-C [address] [place] [address] Undifferentiated carcinoma of uterus (HCC)*; Neoplasm related pain Allergies Active Allergy Reactions Criticality Noted Date Comments Azelastine Nausea/vomiting 12/29/2023 Cetirizine Other (Please comment) 11/22/2021 headache Latex Rash 10/14/2021 Metoprolol Unknown 10/14/2021 Sulfa Antibiotics 08/13/2002 bactrim only-itching afater 1 week Tartaric Acid Unknown 10/14/2021 Valacyclovir 11/23/2022 Renal calculi documented as of this encounter (statuses as of 03/28/2024) Medications Multiple Vitamins-Minerals (DAILY MULTIVITAMIN) CAPS Take [...] 15 MG Oral Tablet (Buspar)Indications :Stress Oneh retirement to one whole tab by mouth up [...] on antibiotic 4 Tablet 03/14/20 24 Active Hospital, Clinic, or Other Facility Administered Medication Ordered Dose Route Frequency Start Date End Date Status Vitamin B-12 (Cyanocobalamin) inj 1,000 mcgIndications:B12 deficiency 1000 mcg IM [id number] 01/27/2024 12/28/2024 Active documented as of this encounter (statuses as of 03/28/2024) Active Problems Problem Noted Date Diagnosed Date Endometrial cancer 03/28/2024 Chronic obstructive pulmonary disease 01/27/2024 Old [place] (myocardial infarction) 01/27/2024 Prediabetes 12/19/2023 Overview: Per [...] as of this encounter (statuses as of 03/28/2024) Resolved Problems Problem Noted Date Diagnosed Date [...] as of this encounter (statuses as of 03/28/2024) Immunizations Name Administration Dates Next Due Pneumococcal Conjugate Vacci ne, 20-valent ([id number]) 04/08/2023 Pneumococcal Polysaccharide PPV23 (Pneumovax) 03/20/2016 Seasonal [...] 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, 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 Not on file documented as of this encounter Plan of Treatment Upcoming Encounters Date Type Department Care Team (Late st Contact Info) Description 04/03/2024 3:15 PM EST Office Visit Gynecology/Obstetrics [facility] [address] [facility] [place] [address] Jefe Lagunas MD 132 [facility] [place] [address] 04/25/2024 3:30 PM EST Telemedicine Orthopaedics [facility] [address] [facility] [place] [address] Salinas Levine PA-C [facility] [place] [address] 05/17/2024 1:00 PM EST Office Visit Allergy/Immunology [facility] [place] [address] [place] [address] Carlo Arambula MD [address] [place] [address] 06/04/2024 11:30 AM EST Office Visit Interventional Pain Ctr [place] [address] [place] [address] Trino Mills CRNP 16 [place] [address] 08/01/2024 11:15 AM EDT Office Visit [facility]opaedics [facility] [address] [facility] [address] [place] Levine PA-C [facility] [place] [address] 09/17/2024 11:30 AM EDT Office Visit Cardiology, [facility] [place] [place] [address] Rashaun Felix MD 132 [facility] [place] [address] Scheduled Orders Name Type Priority Associated Diagnoses Orde r Schedule CA 125 Lab Routine Undifferentiated carcinoma of uterus (HCC) Neoplasm related pain Expected: 04/04/2024 (Approximate), Expires: 03/28/2025 CEA Lab Routine Undifferentiated carcinoma of uterus (HCC) Neoplasm related pain Expected: 04/04/2024 (Approximate), Expires: 03/28/2025 CA 19-9 Lab Routine Undifferentiated carcinoma of uterus (HCC) Neoplasm related pain Expected: 04/04/2024 (Approximate), Expires: 03/28/2025 CT CHEST/ABDOMEN/PELVIS WITH IV CONTRAST WITH ORAL CONTRAST Medical Imaging Routine Undifferentiated carcinoma of uterus (HCC) Neoplasm related pain Expected: 03/28/2024, Expires: 03/28/2025 Scheduled Procedures Name Priority Associated Diagnoses Date/Ti [...] Depression Screening 08/03/2024 08/04/2023 GFR 08/03/2024 08/04/2023, 03/10, 01/14/2023, Additional history exists Mammogram 11/08/2024 11/09/2023, [...] this encounter Medical Devices Implanted Type Area Sweeper Driver Device Identifier Shelf Expiration Date Model / Serial / Lot Lens Intraoc 11.5 - [id number] - [id number] Implanted:Qty: 1 on 12/18/2019 by Azam Boo MD at OR [facility] Left: Eye BAUSCH [employer] LOMB 10/06/2021 [id number] / [id number] / Lens Intraoc 11.5 - [id number] - [id number] Implanted:Qty: 1 on 12/31/2019 by Azam Boo MD at OR [facility] Right: Eye BAUSCH & LOMB 07/06/2024 [id number] / [id number] / [id number] documented as of this encounter Visit Diagnoses Diagnosis Undifferentiated carcinoma of uterus (HCC)- Primary Malignant neoplasm of uterus, part unspecified Neoplasm related pain Neoplasm related pain (acute) (chronic) documented in this encounter Advance Directives * Full Code (Latest Code Status on File) Date Activated Date Inactivated Comments 11/18/2016 1:02 PM 11/19/2016 3:42 PM This order r eflects the patients wishes and were consensually agreed upon. Care Teams Specifications Checker Relationship Specialty Start Date End Date Rosy Cummins PA-C [address] [place] [address] PCP - General Physician Weighter 02/17/21 documented as of this encounter
--- OUTSIDE RECORDS SUMMARY | 2024-06-29 11:03 | External Medical Summary ---
Author Name Unknown Address Unknown Organization K01:LABORATORY [facility] [place] - [address] [place] [address] Laboratory Report Ordering Provider Test Date Status VIRY KRAMERNATHALIA 04/04/2024 09:11:21 Final Observation Date Value Abnormality Reference (Units ) Status Insulin level 04/04/2024 09:11:21 23 3-25 ( uU/mL) Final The above reference interval is based on fasting status. Performing Location [facility] - [address] [place] [address]
--- OUTSIDE RECORDS SUMMARY | 2024-06-29 11:03 | External Medical Summary ---
Author Name Unknown Address Unknown Organization K01:LABORATORY [facility] - [address] [place] [address] Laboratory Report Ordering Provider Test Date Status INDERJIT KRAMER 04/04/2024 09:11:21 Final Observation Date Value Abnormality Reference (Units ) Status T4, Free 04/04/2024 09:11:21 1.1 0.9-1.7 (n g/dL) Final Performing Location [facility] - [address] [place] [address]
--- OUTSIDE RECORDS SUMMARY | 2024-06-29 11:03 | External Medical Summary ---
Author Name Unknown Address Unknown Organization K01:LABORATORY [facility] [place] - [address] [place] [address] Laboratory Report Ordering Provider Test Date Status BRUNO LUJAN 04/04/2024 09:11:21 Final Observation Date Value Abnormality Reference (Units ) Status Cancer Ag 125 04/04/2024 09:11:21 13.3 <=38.1 (U/mL) Final Performing Location [facility] - [address] [place] [address]
--- OUTSIDE RECORDS SUMMARY | 2024-06-29 11:03 | External Medical Summary ---
Author Name Unknown Address Unknown Organization K01:LABORATORY [facility] [place] - [address] [place] [address] Laboratory Report Ordering Provider Test Date Status BRUNO LUJAN 04/04/2024 09:11:21 Final Observation Date Value Abnormality Reference (Units ) Status Cancer Ag 19-9 04/04/2024 09:11:21 25.1 <35.0 (U/mL) Final Performing Location [facility] - [address] [place] [address]
--- OUTSIDE RECORDS SUMMARY | 2024-06-29 11:03 | External Medical Summary | Summary of Care ---
Author Name Unknown Organization [facility] Address [address] [place] [address] Phone [phone] Care Team Providers Care Manager Of Business Name Role Phone Rosy Cummins PA-C Primary Care Provider [phone] Reason for Visit * Reason Onset Date Comments Advice 03/26/2024 Encounter Details Date Type Department Care Team (Late st Contact Info) Description 03/26/2024 Telephone [facility] [address] [place] [address] Rosy Cummins PA-C [address] [place] [address] Advice Allergies Active Allergy Reactions Criticality Noted [...] inj 1,000 mcgIndications:B12 deficiency 1000 mcg IM [id number] 01/27/2024 12/28/2024 Active documented as of this encounter (statuses as of 03/28/2024) Active Problems Problem Noted Date Diagnosed Date Chronic obstructive pulmonary disease 01/27/2024 Old [place] [...] Next Due Pneumococcal Conjugate Vacci ne, 20-valent ([id number]) 04/08/2023 Pneumococcal Polysaccharide PPV23 (Pneumovax) 03/20/2016 Seasonal [...] 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 Had to inform pt about her cancer dx SENIOR REPORT DEVELOPER Onc referral placed Pt is encouraged to [...] and subsided after stopping medication. See 02/13 [employer] message on issues with the medication. Atorvastatin taken off med list due to side effects and does not receive anymore from mail order pharmacy. Please advice different med? documented in this encounter Plan of Treatment Upcoming Encounters Date Type Department Care Team (Late st Contact Info) Description 04/03/2024 3:15 PM EST Office Visit Gynecology/Obstetrics [facility] [address] [place] [address] Jefe Lagunas MD [address] [place] [address] 04/25/2024 3:30 PM EST Telemedicine Orthopaedics [facility] [address] [place] [address] Salinas Levine PA-C [address] [place] [address] 05/17/2024 1:00 PM EST Office Visit Allergy/Immunology [facility] [address] [place] [address] Carlo Arambula MD [address] [facility] [place] [address] 06/04/2024 11:30 AM EST Office Visit [facility] [place] [address] [place] [address] Trino Mills CRNP [address] [place] [address] 08/01/2024 11:15 AM EDT Office Visit Orthopaedics [facility] [address] [place] [address] Salinas Levine PA-C [address] [place] [address] 09/17/2024 11:30 AM EDT Office Visit Cardiology, [facility] [address] [place] [address] Rashaun Felix MD [address] [place] [address] Scheduled Procedures Name Priority Associated Diagnoses Date/Ti [...] this encounter Medical Devices Implanted Type Area Marine Chronometer Assembler Device Identifier Shelf Expiration Date Model / Serial / Lot Lens Intraoc 11.5 - [id number] - [id number] Implanted:Qty: 1 on 12/18/2019 by Azam Boo MD at OR [facility] Left: Eye BAUSCH & LOMB 10/06/2021 [id number] / [id number] / Lens Intraoc 11.5 - [id number] - [id number] Implanted:Qty: 1 on 12/31/2019 by Azam Boo MD at OR [facility] Right: Eye BAUSCH & LOMB 07/06/2024 [id number] / [id number] / [id number] documented as of this encounter Advance Directives * Full Code (Latest Code Status on File) Date Activated Date Inactivated Comments 11/18/2016 1:02 PM 11/19/2016 3:42 PM This order r eflects the patients wishes and were consensually agreed upon. Care Teams Manager Of Business Relationship Specialty Start Date End Date Rosy Cummins PA-C [address] [place] [address] PCP - General Physician Vocational Case Manager 02/17/21 documented as of this encounter
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
--- OUTSIDE RECORDS SUMMARY | 2024-06-29 11:03 | External Medical Summary ---
Author Name Unknown Address Unknown Organization K01:LABORATORY [facility] [place] - [address] [place] [address] Laboratory Report Ordering Provider Test Date Status BRUNO LUJAN 04/04/2024 09:11:21 Final Observation Date Value Abnormality Reference (Units ) Status CEA 04/04/2024 09:11:21 2.3 <=5.2 (ng/ mL) Final Performing Location [facility] - [address] [place] [address]
--- OUTSIDE RECORDS SUMMARY | 2024-06-29 11:03 | External Medical Summary | Summary of Care ---
Author Name Unknown Organization [facility] Address [address] [place] [address] Phone [phone] Care Team Providers Care Needle Process Felt Goods Supervisor Name Role Phone Rosy Cummins PA-C Primary Care Provider [phone] Reason for Visit * Reason Comments Outpatient Testing Encounter Details Date Type Department Care Team (Late st Contact Info) Description 04/04/2024 9:10 AM EST Laboratory Laboratory, [facility] [address] [place] [address] [facility] [address] [place] B[place] [id number] [email or web address] Other*[id number]; Encounter for long-term (current) use of medications; Weight gain; Blood glucose elevated; Fluid retention; Chronic obstructive pulmonary disease, unspecified COPD type (HCC); Undifferentiated carcinoma of uterus (HCC); Neoplasm related pain Allergies Active Allergy Reactions [...] inj 1,000 mcgIndications:B12 deficiency 1000 mcg IM [id number] 01/27/2024 12/28/2024 Active sodium chloride 0.9 % flush/inj 10 mL 10 mL IV PUSH ONCE 04/04/2024 04/04/2024 Active documented as of this encounter (statuses as of 04/04/2024) Active Problems Problem Noted Date Diagnosed Date Endometrial cancer 03/28/2024 Chronic obstructive pulmonary disease 01/27/2024 Old [place] [...] 04/04/2024) Immunizations Name Administration Dates Next Due Pneumococcal Conjugate Vacci ne, 20-valent ([id number]) 04/08/2023 Pneumococcal Polysaccharide PPV23 (Pneumovax) 03/20/2016 Seasonal [...] 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, 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 Not on file documented as of this encounter Plan of Treatment Upcoming Encounters Date Type Department Care Team (Late st Contact Info) Description 04/18/2024 11:00 AM EST Office Visit Gynecology/Oncology, [place] [address] [place] [address] Shekhar Belle MD [address] [place] [address] 04/25/2024 3:30 PM EST Telemedicine Orthopaedics [facility] [address] [place] [address] Salinas Levine PA-C [address] [place] [address] 05/17/2024 1:00 PM EST Office Visit Allergy/Immunology [facility] [address] [place] [address] Carlo Arambula MD [address] [place] [address] 06/04/2024 11:30 AM EST Office Visit [facility] [address] [place] [address] Trino Mills CRNP [address] [place] [address] 08/01/2024 11:15 AM EDT Office Visit Orthopaedics [facility] [address] [place] [address] Sal[place] Levine PA-C [address] [place] [address] 09/17/2024 11:30 AM EDT Office Visit Cardiology, [facility] [address] [place] [address] Rashaun Felix MD [address] [place] [address] Pending Results Name Type Priority Associated Diagnoses Date /Time MYCODE SUBSEQUENT ADULT Lab Routine [employer] Other*[id number] 04/04/2024 9:11 AM EST MAGNESIUM Lab Routine Encounter for long-term (current) use of medications 04/04/2024 9:11 AM EST HEMOGLOBIN A1C Lab Routine Weight gain Blood glucose elevated 04/04/2024 9:11 AM EST INSULIN Lab Routine Weight gain Blood glucose elevated 04/04/2024 9:11 AM EST TSH Lab Routine Weight gain 04/04/2024 9:11 AM EST T4, FREE Lab Routine Weight gain 04/04/2024 9:11 AM EST BNP, NT-PRO Lab Routine Fluid retention 04/04/2024 9:11 AM EST RENAL FUNCTION PANEL Lab Routine Fluid retention 04/04/2024 9:11 AM EST [id number]-[id number], QN Lab Routine Chronic obstructive pulmonary disease, unspecified COPD type (HCC) 04/04/2024 9:11 AM EST CA 125 Lab Routine Undifferentiated carcinoma of uterus (HCC) Neoplasm related pain 04/04/2024 9:11 AM EST CEA Lab Routine Undifferentiated carcinoma of uterus (HCC) Neoplasm related pain 04/04/2024 9:11 AM EST CA 19-9 Lab Routine Undifferentiated carcinoma of uterus (HCC) Neoplasm related pain 04/04/2024 9:11 AM EST MYCODE SST1 Lab Routine [employer] Other*[id number] 04/04/2024 9:11 AM EST MYCODE SST2 Lab Routine [employer] Other*[id number] 04/04/2024 9:11 AM EST Scheduled Procedures Name Priority Associated [...] this encounter Medical Devices Implanted Type Area Orthopedic Specialist Device Identifier Shelf Expiration Date Model / Serial / Lot Lens Intraoc 11.5 - [id number] - [id number] Implanted:Qty: 1 on 12/18/2019 by Azam Boo MD at OR [facility] Left: Eye [employer] LOMB 10/06/2021 [id number] / [id number] / Lens Intraoc 11.5 - [id number] - [id number] Implanted:Qty: 1 on 12/31/2019 by Azam Boo MD at OR [facility] Right: Eye [employer] LOMB 07/06/2024 [id number] / [id number] / [id number] documented as of this encounter Visit Diagnoses Diagnosis [employer] Other*[id number] Encounter for long-term (current) use of medications Encounter for long-term (current) use of other medications Weight gain Abnormal weight gain Blood glucose elevated Other abnormal glucose Fluid retention Other fluid overload Chronic obstructive pulmonary disease, unspecified COPD type (HCC) Undifferentiated carcinoma of uterus (HCC) Malignant neoplasm of uterus, part unspecified Neoplasm related pain Neoplasm related pain (acute) (chronic) documented in this encounter Advance Directives * Full Code (Latest Code Status on File) Date Activated Date Inactivated Comments 11/18/2016 1:02 PM 11/19/2016 3:42 PM This order r eflects the patients wishes and were consensually agreed upon. Care Teams Needle Process Felt Goods Supervisor Relationship Specialty Start Date End Date Rosy Cummins PA-C [address] [facility] [place] [address] PCP - General Physician Lawn Care Professional 02/17/21 documented as of this encounter
[2024-06-29] MEDS: MoRPHine SULFATE 4 MG/ML 1 ML CARP\\VIAL IV STA ×2 (11:04→12:34)
--- OUTSIDE RECORDS SUMMARY | 2024-06-29 11:04 | External Medical Summary | Summary of Care ---
Author Name Unknown Organization [facility] Address [address] [facility] [place] [address] Phone [phone] Care Team Providers Care Meat Passer Name Role Phone Rosy Cummins PA-C Primary Care Provider [phone] Reason for Visit * Reason Onset Date Comments Physical Therapy 03/23/2024 Encounter Details Date Type Department Care Team (Late st Contact Info) Description 03/23/2024 Telephone Orthopaedics [facility] [address] [place] [address] Sal[place] Levine PA-C [address] [place] [address] Physical Therapy Allergies Active Allergy Reactions Criticality Noted Date Comments Azelastine Nausea/vomiting 12/29/2023 Cetirizine Other (Please comment) 11/22/2021 headache Latex Rash 10/14/2021 Metoprolol Unknown 10/14/2021 Sulfa Antibiotics 08/13/2002 bactrim only-itching afater 1 week Tartaric Acid Unknown 10/14/2021 Valacyclovir 11/23/2022 Renal calculi documented as of this encounter (statuses as of 03/23/2024) Medications Multiple Vitamins-Minerals (DAILY MULTIVITAMIN) CAPS Take 1 Capsule by mouth every evening. 11/07/20 16 Active Zinc 25 MG TABS Take [...] 4 3:40 PM EST 04/08/20 23 Active Atorvastatin Calcium 40 MG Oral Tablet (Lipitor)Indication s:Hyperlipidemia with target LDL less than 100 Take 1 Tablet by mouth in the morning. 100 Tablet 3 4 6:08 PM EST 04/08/20 23 Active Additional Information Patient not taking.Reported on 03/14/2024 Meclizine HCl 25 MG Oral Tablet (Antivert) [...] inj 1,000 mcgIndications:B12 deficiency 1000 mcg IM [id number] 01/27/2024 12/28/2024 Active documented as of this encounter (statuses as of 03/23/2024) Active Problems Problem Noted Date Diagnosed Date Chronic obstructive pulmonary disease 01/27/2024 Old [place] (myocardial infarction) 01/27/2024 Prediabetes 12/19/2023 Overview: Per [...] as of this encounter (statuses as of 03/23/2024) Resolved Problems Problem Noted Date Diagnosed Date [...] as of this encounter (statuses as of 03/23/2024) Immunizations Name Administration Dates Next Due Pneumococcal Conjugate Vacci ne, 20-valent ([id number]) 04/08/2023 Pneumococcal Polysaccharide PPV23 (Pneumovax) 03/20/2016 Seasonal [...] 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 Can we assign a PT referral for her. [facility] documented in this encounter Plan of Treatment Upcoming Encounters Date Type Department Care Team (Late st Contact Info) Description 03/26/2024 11:30 AM EST Office Visit Otolaryngology [facility] [address] [place] [address] Melvin Horta PA-C [address] [place] [address] 03/28/2024 12:30 PM EST Office Visit Gynecology/Obstetrics [facility] [address] [place] [address] Jefe Lagunas MD [address] [place] [address] 04/03/2024 3:15 PM EST Office Visit Gynecology/Obstetrics [facility] [address] [facility] [place] [address] Jefe Lagunas MD [address] [place] [address] 04/25/2024 3:30 PM EST Telemedicine Orthopaedics [facility] [address] [facility] [place] [address] Sal[place] Levine PA-C [address] [facility] [place] [address] 05/17/2024 1:00 PM EST Office Visit Allergy/Immunology [facility] [address] [facility] [address] Carlo Arambula MD [address] [place] [address] 06/04/2024 11:30 AM EST Office Visit Interventional Pain Ctr [facility] [address] [place] [address] Trino Mills CRNP [address] [place] [address] 08/01/2024 11:15 AM EDT Office Visit Orthopaedics [facility] [address] [facility] [place] [address] Sal[place] Levine PA-C [address] [facility] [place] [address] 09/17/2024 11:30 AM EDT Office Visit [facility]iology, [facility] [place] [address] Rashaun Felix MD [address] [place] [address] Scheduled Procedures Name Priority Associated Diagnoses Date/Ti [...] this encounter Medical Devices Implanted Type Area Pipe Turner Device Identifier Shelf Expiration Date Model / Serial / Lot Lens Intraoc 11.5 - [id number] - [id number] Implanted:Qty: 1 on 12/18/2019 by Azam Boo MD at OR [facility] Left: Eye [employer]OM[employer] 10/06/2021 [id number] / [id number] / Lens Intraoc 11.5 - [id number] - [id number] Implanted:Qty: 1 on 12/31/2019 by Azam Boo MD at OR [facility] Right: Eye [employer]CH [employer] LOMB 07/06/2024 [id number] / [id number] / [id number] documented as of this encounter Advance Directives * Full Code (Latest Code Status on File) Date Activated Date Inactivated Comments 11/18/2016 1:02 PM 11/19/2016 3:42 PM This order r eflects the patients wishes and were consensually agreed upon. Care Teams Meat Passer Relationship Specialty Start Date End Date Rosy Cummins PA-C [address] [facility] [place] [address] PCP - General Physician Motor Vehicle Clerk 02/17/21 documented as of this encounter
--- OUTSIDE RECORDS SUMMARY | 2024-06-29 11:04 | External Medical Summary | Summary of Care ---
Author Name Unknown Organization [facility] Address [address] [facility] [place] [address] Phone [phone] Care Team Providers Care Rn Women Services Name Role Phone Rosy Jansen PA-C Primary Care Provider [phone] Reason for Visit * Reason Comments Acute Patient is here toda y due to vaginal burning, and an ache in the kidney area. Patient states she recently had a cyst removed from her ovary. Patient states she has a spot on the bottom of the right foot she would like checked to see if there is something in the foot. Patient would also like a B-12 injection. Encounter Details Date Type Department Care Team (Late st Contact Info) Description 03/14/2024 10:20 AM EST Office Visit [facility] [address] [place] [address] Rosy Jansen PA-C [address], [place] [id number] Dysuria*; Acute cystitis without hematuria; Right foot pain Allergies Active Allergy Reactions Criticality Noted Date Comments Azelastine Nausea/vomiting 12/29/2023 Cetirizine Other (Please comment) 11/22/2021 headache Latex Rash 10/14/2021 Metoprolol Unknown 10/14/2021 Sulfa Antibiotics 08/13/2002 bactrim only-itching afater 1 week Tartaric Acid Unknown 10/14/2021 Valacyclovir 11/23/2022 Renal calculi documented as of this encounter (statuses as of 03/14/2024) Medications Medication Sig Dispensed Refills Start Date End Date Status Multiple Vitamins-Minerals (DAILY MULTIVITAMIN) CAPS Take 1 Capsule by mouth every evening. 6 Active Zinc 25 MG TABS Take 1 [...] Take 1 Tablet by mouth every evening. 2 Active Qvar RediHaler 80 MCG/ACT Inhalation Aerosol Breath Activated (Beclomethasone Diprop HFA)Indications:Dysp tapan and respiratory abnormality Inhale 2 Puffs by mouth in the morning and 2 Puffs before bedtime. 3 Each 3 2 Active guaiFENesin ER 600 MG Oral Tablet Extended Release 12 Hour Take 1 Tablet by mouth in the morning. Active hydroCHLOROthiazide 25 MG Oral Tablet (Hydrodiuril)Indicat ions:PAF (paroxysmal atrial fibrillation) (HCC) Take 1 Tablet by mouth in the morning. 90 Tablet 3 3 Active Additional Information Patient taking differently: 12.5 mgOral Daily(AM), Reported on 11/05/2022 Clobetasol Propionate 0.05 % External Cream (Temovate) Apply topically to affected area daily. To affected area 15 g 1 3 Active Magnesium 400 MG Oral Tablet Take by mouth. At bedtime Active busPIRone HCl 15 MG Oral Tablet (Buspar)Indications: Stress Oneh pili to one whole tab by mouth up to three times a day as needed for nerves 20 Tablet 3 Active Additional Information Patient not taking.Reported on 03/14/2024 dilTIAZem HCl ER Coated Beads 120 MG Oral Capsule Extended Release 24 Hour (Cardizem CD)Indications:PAF (paroxysmal atrial fibrillation) (HCC) Take 1 Capsule by mouth daily. In the evening. 90 Capsule 3 3 Active Atorvastatin Calcium 40 MG Oral Tablet (Lipitor)Indications :Hyperlipidemia with target LDL less than 100 Take 1 Tablet by mouth in the morning. 100 Tablet 3 3 Active Additional Information Patient not taking.Reported on 03/14/2024 Meclizine HCl 25 MG Oral Tablet (Antivert) Take 1-2 tablets by mouth 3 times a day as needed for dizziness. 540 Tablet 1 4 Active Albuterol Sulfate HFA 108 (90 Base) MCG/ACT Inhalation Aerosol Solution Inhale 2 Puffs by mouth every 6 hours as needed (stomach irritation). 54 g 1 4 Active Omeprazole 40 MG Oral Capsule Delayed Release (PriLOSEC) Take 1 Capsule by mouth in the morning. 90 Capsule 1 4 Active Ondansetron HCl 4 MG Oral Tablet (Zofran)Indications: Nausea Take 1 Tablet by mouth every 8 hours as needed for Nausea. 20 Tablet 4 Active Gabapentin 100 MG Oral Capsule (Neurontin)Indicatio ns:Lumbar radicular pain Take 2 Capsules by mouth in the morning and 2 Capsules at noon and 2 Capsules before bedtime. 540 Capsule 4 05/07/20 24 Active Sodium Hyaluronate 60 MG/3ML Intra-articular Prefilled Syringe (Durolane) Inject contents of prefilled syringe into the right knee one time. 3 mL 4 Active Olopatadine HCl 0.6 % Nasal SolutionIndications: Phlegm in throat,Vertigo Administer 2 Sprays into nostril in the morning and 2 Sprays before bedtime. 30 g 1 4 Active Famciclovir 250 MG Oral Tablet (Famvir)Indications: Herpes simplex of female genitalia Take 1 Tablet by mouth in the morning. 90 Tablet 1 4 Active Lisinopril 10 MG Oral Tablet (Prinivil)Indication s:Essential hypertension with goal blood pressure less than 140/90 Take 2 Tablets by mouth in the morning. 180 Tablet 3 4 Active Montelukast Sodium 10 MG Oral Tablet (Singulair)Indicatio ns:RUDOLPH (dyspnea on exertion),Phlegm in throat TAKE 1 TABLET BY MOUTH EVERYDAY AT BEDTIME 90 Tablet 1 4 Active Nitroglycerin 0.4 MG Sublingual Tablet Sublingual (Nitrostat) Place 1 Tablet under the tongue as needed for Pain, Chest. May repeat 3 times. If chest pain continues, call 911. 25 Tablet 11 4 Active rOPINIRole HCl 0.25 MG Oral Tablet (Requip) Take 1 Tablet by mouth in the morning and 1 Tablet at noon and 1 Tablet before bedtime. With food.. 90 Tablet 11 4 Active Amoxicillin-Pot Clavulanate 875-125 MG Oral Tablet (Augmentin)Indicatio ns:Acute cystitis without hematuria Take 1 Tablet by mouth in the morning and 1 Tablet before bedtime. 20 Tablet 4 Active Fluconazole 150 MG Oral Tablet (Diflucan)Indication s:Acute cystitis without hematuria Take one tab every 3 days while on antibiotic 4 Tablet 4 Active Azithromycin 250 MG Oral Tablet (Zithromax Z-Hal)Indications:Ac nilsa recurrent maxillary sinusitis Take two tablets by mouth on first day, then 1 tablet daily until gone 6 Tablet 4 03/14/20 24 Discontinu ed(Medicat ion List Clean Up) Amoxicillin-Pot Clavulanate 875-125 MG Oral Tablet (Augmentin)Indicatio ns:Acute cystitis without hematuria Take 1 Tablet by mouth in the morning and 1 Tablet before bedtime. Do all this for 10 days. 20 Tablet 4 03/14/20 24 Discontinu ed(Refill) Fluconazole 150 MG Oral Tablet (Diflucan)Indication s:Acute cystitis without hematuria Take one tab every 3 days while on antibiotic 4 Tablet 4 03/14/20 24 Discontinu ed(Refill) Hospital, Clinic, or Other Facility Administered Medication Ordered Dose Route Frequency Start Date End Date Status Vitamin B-12 (Cyanocobalamin) inj 1,000 mcgIndications:B12 deficiency 1000 mcg IM [id number] 01/27/2024 12/28/2024 Active documented as of this encounter (statuses as of 03/14/2024) Active Problems Problem Noted Date Diagnosed Date Chronic obstructive pulmonary disease 01/27/2024 Old IN (myocardial infarction) 01/27/2024 Prediabetes 12/19/2023 Overview: Per Prediabetes protocol Body mass index (BMI) 40.0-44.9, adult Hyperlipidemia with target LDL less than 100 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/2022 Advanced directives, counseling/discussion 04/14 Rectocele 04/14/2018 Stress incontinence 04/14/2018 PAT (paroxysmal atrial tachycardia) 04/14/2018 Pericarditis, chronic 02/11/2017 S/P ablation of atrial fibrillation 11/19/2016 EUSEBIA on CPAP 10/12/2016 Overview: CPAP 12 cwp, pending NPO once tolerant to treatment [facility] Oxygen Snoring 05/21/2016 HTN, goal below 140/90 05/21/2016 Chronic chest pain 03/15/2016 Dyspnea and respiratory abnormality 08/06/2002 Overview: ICD-10 update of inactive term Allergic rhinitis 01/30/1999 Back disorder documented as of this encounter (statuses as of 03/14/2024) Resolved Problems Problem Noted Date Diagnosed Date Resolved Date Prediabetes 04/18/2023 08/18/2023 Overview: Per Prediabetes protocol Morbid obesity 11/23/2022 01/03/2023 Chronic obstructive pulmonary disease 09/29/2022 09/29/2022 Morbid obesity with BMI of 40.0-44.9, adult 04/14/2018 07/21/2023 Urinary incontinence, urge 04/14/2018 0 01/03/2023 PAF (paroxysmal atrial fibrillation) 03/15/2016 09/21/2021 ACUTE SINUSITIS NOS 08/06/2002 06/27/19 09 Overview: Resolved per Benign Acute Dxs Protocol #3 Epistaxis 08/06/2002 08/13/2021 ELEV BL PRES W-O HYPERTN 08/06/200211/2021 Migraine 01/30/1999 09/29/2022 documented as of this encounter (statuses as of 03/14/2024) Immunizations Name Administration Dates Next Due Hepatitis B, 20+ yrs 11/23/2000,05/20/2000,02/2310/18/2000 Influenza, Whole Virus 03/10/1999 PPD 10/31/2001,03/24/1999,01/19/1994 Pneumococcal Conjugate Vacci ne, 20-valent ([id number]) 04/08/2023 Pneumococcal Polysaccharide PPV23 (Pneumovax) 03/20/2016,02/24/2000 Seasonal [...] pur e alcohol) occational glass of wine Sex and Gender Information Value Date Recorded Sex Assigned at Not on file Gender Identity Not on file Sexual Orientation Straight 10/16/2021 3: 01 PM EDT Job Start Date Occupation Industry Not on file Not on file Not on file documented as of this encounter Last Filed Vital Signs Vital Sign Reading Time Taken Comments Blood Pressure 132/72 03/14/2024 10:12 AM EST Pulse 88 03/14/2024 10:12 AM EST Temperature 36.2 C (97.1 F) 03/14/2024 10:[address] Respiratory Rate 16 03/14/2024 10:12 AM EST Oxygen Saturation 95% 03/14/2024 10:12 AM EST Inhaled Oxygen Concentration - - Weight 103 kg (227 lb) 03/14/2024 10:12 AM EST Height 157.5 cm (5' 2") 03/14/2024 10:12 AM EST Body Mass Index 41.52 03/14/2024 10:12 AM EST documented in this encounter Progress Notes * Shanell Brennan LPN - 03/14/2024 10:57 AM EST Pre-Administration Time Out Procedure Performed: Yes Patient Identified (Ask Name/Date of ): Yes Does the patient have a fever greater than 101 degrees today? No Patient allergic to latex? No Has the patient ever fainted after receiving an injection? No VFC Stock: No Injection(s) verified: Yes, Injection Name: B-12 Verified Side and Site: Yes Verified Shot(s) with Parent(s)/Patient: Yes * Rosy Jansen PA-C - 03/14/2024 10:31 AM EST Images from the original note were not included. History of Present Illness Kateryna Ortez is a 69 year old female that presents for Acute (Patient is here today due to vaginal burning, and an ache in the kidney area. /Patient states she recently had a cyst removed from her ovary. /Patient states she has a spot on the bottom of the right foot she would like checked to see if there is something in the foot. /Patient would also like a B-12 injection. ) Had a few cans of soda the other day She then had some dysuria Not sure if uti or the drink She held her juice plus to make sure it would not be too much vit c Had pressure across her back Had recent surgery the end of February for her thickened endometrium She was catheterized for this She had dysuria No fever or chills Denies hematuria but has noted a few red spots but not sure if this was from urine or vaginal R FOOT SHE STEPPED ON A SPLINTER A FEW MONTHS AGO PULLED IT OUT BUT STILL HAS PAIN SHE HAS WONDERED IF A PIECE COULD STILL BE IN THERE Physical Exam Vitals: 03/14/24 1012 Temp: 36.2 C (97.1 F) Pulse: 88 Resp: 16 SpO2: 95% BP: 132/72 BMI: 41.51 BP Readings from Last 3 Encounters: 03/14/24 132/72 01/27/24 148/88 12/29/23 142/88 Wt Readings from Last 3 Encounters: 03/14/24 103 kg (227 lb) 01/27/24 104.5 kg (230 lb 6.4 oz) 12/29/23 102.9 kg (226 lb 12.8 oz) BMI Readings from Last 3 Encounters: 03/14/24 41.52 kg/m 01/27/24 42.14 kg/m 12/29/23 41.48 kg/m Ht Readings from Last 3 Encounters: 03/14/24 1.575 m (5' 2") 01/27/24 1.575 m (5' 2") 12/29/23 1.575 m (5' 2") General: alert, healthy, and no distress Head: Normocephalic, No masses, lesions, tenderness or abnormalities Eye Exam: PERRLA, extraocular movements intact, conjunctiva are pink and non- injected, sclera clear Heart: regular rate & rhythm, no murmur, no gallops, S-1 normal, and S-2 normal Lungs: chest symmetric with normal AP diameter, no chest deformities noted, no chest wall tenderness, lungs clear to auscultation Pulses: carotid=2/4 w/o bruits Abdomen: abdomen soft, non-tender, normal bowel sounds, and no masses or organomegaly Back: back symmetric, no curvature, no costovertebral angle tenderness, range of motion is normal Extremities: less than 2 second capillary refill, no joint deformities, effusion, or inflammation Skin: skin color, texture, turgor are normal, no rashes or significant lesions. R FOOT - ALTERAL BORDER SMALL 2 MM PLANTAR WART Assessment and Plan Dysuria (Primary) - URINALYSIS, POINT OF CARE (ENTER/EDIT) - CULTURE, URINE, QUANTITATIVE Acute cystitis without hematuria - Amoxicillin-Pot Clavulanate 875-125 MG Oral Tablet (Augmentin); Take 1 Tablet by mouth in the morning and 1 Tablet before bedtime. - Fluconazole 150 MG Oral Tablet (Diflucan); Take one tab every 3 days while on antibiotic Right foot pain - XR FOOT 3 OR MORE VIEWS; Future; Expected date: 03/14/2024 Other orders - REFILLS DONE - Nitroglycerin 0.4 MG Sublingual Tablet Sublingual (Nitrostat); Place 1 Tablet under the tongue asneeded for Pain, Chest. May repeat 3 times. If chest pain continues, call 911. - rOPINIRole HCl 0.25 MG Oral Tablet (Requip); Take 1 Tablet by mouth in the morning and 1 Tablet at noon and 1 Tablet before bedtime. With food.. Push fluids Wrap-Up XRAY TO RULE OUT fb VIRAL WART - MAY NEED PARED AND FROZEN Time: I spent a total of 35 minutes on the date of service in preparation, delivery, and documentation ofthe care provided to Kateryna Ortez excluding any time spent in the performance of separately billed services. Rosy Jansen PA-C 03/14/2024 10:44 AM documented in this encounter Nursing Notes * Philomena Boyd LPN - 03/14/2024 10:18 AM EST The patient has been properly identified by confirmation of name and date of . Chief Complaint Patient presents with Acute Patient is here today due to vaginal burning, and an ache in the kidney area. Patient states she recently had a cyst removed from her ovary. Patient states she has a spot on the bottom of the right foot she would like checked to see if there is something in the foot. Patient would also like a B-12 injection. documented in this encounter Miscellaneous Notes * Addendum Note - Rosy Jansen PA-C - 03/14/2024 11:46 AM ESTAddended by: ROSY JANSEN on: 03/14/2024 11:46 AM Modules accepted: Orders documented in this encounter Plan of Treatment Upcoming Encounters Date Type Department Care Team (Late st Contact Info) Description 03/19/2024 11:00 AM EST Office Visit Gynecology/Obstetrics Jud Castellanos [address] [place] [address] [address] Jefe Lagunas MD [address] [place] [address] [address] 03/20/2024 11:45 AM EST Office Visit Gynecology/Obstetrics Jud Castellanos [address] [place] [address] [address] Jefe Lagunas MD [address] [place] [address] 03/23/2024 9:00 AM EST Office Visit Orthopaedics [facility] [address] [facility] [place] [address] Salinas Levine PA-C [address] [place] [address] 03/26/2024 11:30 AM EST Office Visit Otolaryngology [facility] [address] [facility] [place] [address] Melvin Horta PA-C [address] [facility] [place] [address] 05/17/2024 1:00 PM EST Office Visit Allergy/Immunology [facility] [address] [place] [address] Carlo Arambula MD [address] [place] [address] 06/04/2024 11:30 AM EST Office [facility] [address] [place] [address] Trino Mills CRNP [address] [place] [address] 08/01/2024 11:15 AM EDT Office Visit Orthopaedics [facility] [address] [facility] [place] [address] Salinas Levine PA-C [address] [facility] [place] [address] 09/17/2024 11:30 AM EDT Office Visit Cardiology, [facility] [address] [address] Rashaun Felix MD [address] [address] Pending Results Name Type Priority Associated Diagnoses Date /Time CULTURE, URINE, QUANTITATIVE Lab Routine Dysuria 03/14/2024 2:51 PM EST Scheduled Orders Name Type Priority Associated Diagnoses Orde r Schedule XR FOOT 3 OR MORE VIEWS Medical Imaging Routine Right foot pain Expected: 03/14/2024, Expires: 04/13/2025 Scheduled Procedures Name Priority Associated Diagnoses Date/Ti [...] 01/29/2024 *NEPHROLOGY REFERRAL DUE TO RESISTANT HTN 02/06/2024 Depression Screening 08/03/2024 08/04/2023 GFR 08/03/2024 08/04/2023, [...] this encounter Medical Devices Implanted Type Area Advance Seal Delivery System Maintainer Device Identifier Shelf Expiration Date Model / Serial / Lot Lens Intraoc 11.5 - [id number] - [id number] Implanted:Qty: 1 on 12/18/2019 by Azam Boo MD at [facility] Left: Eye [employer] 10/06/2021 [id number] / [id number] / Lens Intraoc 11.5 - [id number] - [id number] Implanted:Qty: 1 on 12/31/2019 by Azam Boo MD at [facility] Right: Eye [employer]OMB 07/06/2024 [id number] / [id number] / [id number] documented as of this encounter Procedures Procedure Name Priority Date/Time Associated Diagnosis Comments URINALYSIS, POINT OF CARE (ENTER/EDIT) Routine 03/14/2024 Dysuria documented in this encounter Results * (ABNORMAL) URINALYSIS, POINT OF CARE (ENTER/EDIT) (03/14/2024) Color, Urine Light Yellow Yellow or Light Yellow Clarity, Urine Slightly Cloudy Clear Glucose, Urine Negative Negative mg/dL Bilirubin, Urine Negative Negative Ketone, Urine Negative Negative mg/dL Specific Willits, Urine 1.030 1.003 - 1.030 Blood, Urine Negative Negative pH, Urine 5.5 5.0 - 7.5 units Protein, Urine Negative Negative mg/dL Urobilinogen, Urine 0.2 0.2 - 1.0 mg/dL Nitrite, Urine Negative Negative Esterase, Urine Trace Negative Urine 03/14/2024 Rosy Jansen PA-C LAB POINT OF CARE TEST ENTER/EDIT ORDERABLES documented in this encounter Visit Diagnoses Diagnosis Dysuria- Primary Acute cystitis without hematuria Acute cystitis Right foot pain Pain in limb documented in this encounter Administered Medications Active Administered Medications - up to 3 most recent administrations Medication Order MAR Action Action Date Dose Rate Site Vitamin B-12 (Cyanocobalamin) inj 1,000 mcg 1,000 mcg, Intramuscular, [id number], First dose on Tue01/27/24 at 1115, Last dose on Tue11/30/24 at 1115, For 12 doses Given 03/14/2024 10:56 AM EST 1,000 mcg Deltoid Left Upper Given 01/27/2024 10:56 AM EDT 1,000 mcg D eltoid Left Upper documented in this encounter Advance Directives * Full Code (Latest Code Status on File) Date Activated Date Inactivated Comments 11/18/2016 1:02 PM 11/19/2016 3:42 PM This order r eflects the patients wishes and were consensually agreed upon. Care Teams Rn Women Services Relationship Specialty Start Date End Date Rosy Jansen PA-C [address] [place] [address] PCP - General Physician Emergency Medical Technician/Driver 02/17/21 documented as of this encounter
--- OUTSIDE RECORDS SUMMARY | 2024-06-29 11:04 | External Medical Summary | Summary of Care ---
Author Name Unknown Organization [facility] Address [address] [place] [address] Phone [phone] Care Team Providers Care Ship Captain Name Role Phone Rosy Cummins PA-C Primary Care Provider [phone] Reason for Visit * Reason Onset Date Comments Appointment 12/22/2023 Encounter Details Date Type Department Care Team (Late st Contact Info) Description 12/22/[address] [facility] [address] [place] [address] Rosy Cummins PA-C [address] [place] [address] Appointment Allergies Active Allergy Reactions Criticality Noted Date Comments Azelastine Nausea/vomiting 12/29/2023 Cetirizine Other (Please comment) 11/22/2021 headache Latex Rash 10/14/2021 Metoprolol Unknown 10/14/2021 Sulfa Antibiotics 08/13/2002 bactrim only-itching afater 1 week Tartaric Acid Unknown 10/14/2021 Valacyclovir 11/23/2022 Renal calculi documented as of this encounter (statuses as of 03/22/2024) Medications Multiple Vitamins-Minerals (DAILY MULTIVITAMIN) CAPS Take [...] for Nausea. 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 She saw her hedis analyst who prescribed ABX but it made her feel worse. Pt would like to schedule an appt with Rosy to discuss sx and try to figure out why she keeps getting ill. Scheduled appt with Rosy on 12/25 at 10:20 documented in this encounter Plan of Treatment Upcoming Encounters Date Type Department Care Team (Late st Contact Info) Description 03/23/2024 9:00 AM EST Office Visit Orthopaedics [facility] [address] [place] [address] Salinas Levine PA-C [address] [place] [address] 03/26/2024 11:30 AM EST Office Visit Otol[facility]ology [facility] [address] [place] [address] Melvin Horta PA-C [address] [place] [address] 03/28/2024 12:30 PM EST Office Visit Gynecology/Obstetrics [facility] [address] [place] [address] Jefe Lagunas MD [address] [place] [address] 04/03/2024 3:15 PM EST Office Visit Gynecology/Obstetrics [facility] [address] [place] [address] Jefe Lagunas MD [address] [place] [address] 05/17/2024 1:00 PM EST Office Visit Allergy/Immunology [facility] [address] [place], [place] [address] Carlo Arambula MD [address] [facility] [place] [address] 06/04/2024 11:30 AM EST Office Visit [facility] [place] [place] [address] [place] [address] Trino Mills CRNP [address] [place] [address] 08/01/2024 11:15 AM EDT Office Visit [facility] [address] [facility] [place] [address] Salinas Levine PA-C [address] [place] [address] 09/17/2024 11:30 AM EDT Office Visit Cardiology, [facility] [address] [place] [place] [address] Rashaun Felix MD [address] [place] [address] Scheduled Procedures Name Priority Associated Diagnoses Date/Ti [...] this encounter Medical Devices Implanted Type Area Lands Resource Manager Device Identifier Shelf Expiration Date Model / Serial / Lot Lens Intraoc 11.5 - [id number] - [id number] Implanted:Qty: 1 on 12/18/2019 by Azam Boo MD at [facility] Left: Eye [employer] 10/06/2021 [id number] / [id number] / Lens Intraoc 11.5 - [id number] - [id number] Implanted:Qty: 1 on 12/31/2019 by Azam Boo MD at OR [facility] Right: Eye [employer]OM[employer] 07/06/2024 [id number] / [id number] / [id number] documented as of this encounter Advance Directives * Full Code (Latest Code Status on File) Date Activated Date Inactivated Comments 11/18/2016 1:02 PM 11/19/2016 3:42 PM This order r eflects the patients wishes and were consensually agreed upon. Care Teams Ship Captain Relationship Specialty Start Date End Date Rosy Cummins PA-C [address] [place] [id number] PCP - General Physician Web Assistant 02/17/21 documented as of this encounter
--- OUTSIDE RECORDS SUMMARY | 2024-06-29 11:04 | External Medical Summary | Summary of Care ---
Author Name Unknown Organization [facility] Address [address] [facility] [place] [address] Phone [phone] Care Team Providers Care Office Runner Name Role Phone Rosy Cummins PA-C Primary Care Provider +1 [phone] Reason for Referral * Evaluate & Treat - Unlimited Visits (Within 10 days (routine)) - Authorized Specialty Diagnoses / Procedures Referred By Jeremías staley Referred To Contact Physical Therapy / Physical Medicine And Rehab Diagnoses De Quervain's tenosynovitis, left Salinas Levine PA-C [address] [place] [address] Phone: tel: fax: Referral ID Status Reason Start Date Expiration Date Visits Requested Visits Authorized [id number] Authorized Specialty Services Required 4 [phone] Question Answer Referral Priority Within 10 days (routine) Where should this appointment be scheduled? [facility] Reason for Visit * Reason Comments Follow Up Left thumb Encounter Details Date Type Department Care Team (Late st Contact Info) Description 03/23/2024 9:00 AM EST Office Visit Orthopaedics [facility] [address] [place] [address] Salinas Levine PA-C [address] [place] [address] De Quervain's tenosynovitis, left* Allergies Active Allergy [...] inj 1,000 mcgIndications:B12 deficiency 1000 mcg IM [id number] 01/27/2024 12/28/2024 Active documented as of this encounter (statuses as of 03/23/2024) Active Problems Problem Noted Date Diagnosed Date Chronic obstructive pulmonary disease 01/27/2024 Old [place] [...] Next Due Pneumococcal Conjugate Vacci ne, 20-valent ([id number]) 04/08/2023 Pneumococcal Polysaccharide PPV23 (Pneumovax) 03/20/2016 Seasonal [...] 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 Inquiring whether the injection was beneficial. She states she still has pain. She actually describes the pain and points towards the radial styloid over left wrist. Personally, the sounds as it may be a differentdiagnosis but will investigate and determine nonetheless. Denies any numbness or tingling. States it is worsened with gripping activity and motion. 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 complete review of systems negative General: alert and oriented x3 female, no acute distress, appears currently stated age, pleasant, well nourished Skin: Left upper extremity including wrist does not reveal any erythema, ecchymosis, abrasion, laceration, skin breakdown otherwise Neurovascular: Left upper extremity reveals distal pulses +2, capillary refill is under 2 seconds, good sensation light touch, +5 certified procedural coder strength, axillary median ulnar radial nerve assess fully intact Musculoskeletal: Exam of the left wrist reveals tenderness of the 1st dorsal compartment. There is pain with a Tram's test as well as resisted thumb extension and abduction. Snuffbox nontender. The 1st CMC joints actually not overly tender. All surrounding tendinous structures appear to be intact. Impression: De Quervain tenosynovitis left side Plan: Today 's findings were discussed with the patient. They were educated regarding their diagnosis. Personally, I believe that the injection in his providing some relief and that her de Quervain tenosynovitis is most impressive at this point. As she is already doing some of the recommended treatments with topical agents and bracing I would add physical therapy for the de Quervain, ice to the radial styloid, topical creams or gels that can help with appropriate medicine, behavior modificationrest. I do believe we would need to be more compliant with the amount of use we are offering the thumb spica brace to be affected beneficial. I would like a telephonic visit in 4-6 weeks to confirm th at compliant with the brace, physical therapy, ice and topical gel. Minimal relief and we would likely offer a steroid injection with our Sports Medicine team or ultrasound guidance. The patient is in agreement. The patient has no other questions or concerns. Pleased with today 's care. Call soonerif needed. This chart was completed in part utilizing [employer] Speech Voice Recognition Software. Grammatical errors, random word insertions, prounoun errors, and incomplete sentences are an occasional consequence of this system due to software limitations, ambient noise, and hardware issues. Any formal questions or concerns about the content, text, or information contained within the body of this dictation should be directly addressed to the provider for clarification. documented in this encounter Nursing Notes * Connie Arellano MED ASSIST - 03/23/2024 8:55 AM EST Patient presents today for left thumb follow up. 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 RHD. Previously injected in [facility] [place]01[place]24, and is unsure if it worked. documented in this encounter Plan of Treatment Upcoming Encounters Date Type Department Care Team (Late st Contact Info) Description 03/26/2024 11:30 AM EST Office Visit Otolaryngology [facility] [address] [place] [address] Melvin Horta PA-C [address] [place] [address] 03/28/2024 12:30 PM EST Office Visit Gynecology/Obstetrics [facility] [address] [place] [address] Jefe Lagunas MD [address] [place] [address] 04/03/2024 3:15 PM EST Office Visit Gynecology/Obstetrics [facility] [address] [place] [address] Jefe Lagunas MD [address] [place] [address] 04/25/2024 3:30 PM EST Telemedicine Orthopaedics [facility] [address] [place] [address] Salinas Levine PA-C [address] [place] [address] 05/17/2024 1:00 PM EST Office Visit Allergy/Immunology [facility] [place] [address] [place] [address] Carlo Arambula MD [address] [place] [address] 06/04/2024 11:30 AM EST Office Visit [facility] [place] [place] [address] [place] [address] Trino Mills CRNP [address] [place] [address] 08/01/2024 11:15 AM EDT Office Visit Orthopaedics [facility] [address] [facility] [place] [address] Salinas Levine PA-C [address] [facility] [address] 09/17/2024 11:30 AM EDT Office Visit Cardiology, [facility] [address] [facility] [place] [address] Rashaun Felix MD [address] [place] [address] Scheduled Procedures Name Priority Associated Diagnoses Date/Ti me COLONOSCOPY FLEXIBLE PROXIMA L DIAGNOSTIC Recall Encounter for screening colonoscopy Scheduled Referrals Name Type Priority Associated Diagnoses Orde r Schedule PHYSICAL THERAPY REFERRAL OP Referral Within 10 days (routine) De Quervain's tenosynovitis, left Ordered: 03/23/2024 Health Maintenance Due Date Last Done Comments [...] this encounter Medical Devices Implanted Type Area Hoe Runner Device Identifier Shelf Expiration Date Model / Serial / Lot Lens Intraoc 11.5 - [id number] - [id number] Implanted:Qty: 1 on 12/18/2019 by Azam Boo MD at OR [facility] Left: Eye BAUSCH & LOMB 10/06/2021 [id number] / [id number] / Lens Intraoc 11.5 - [id number] - [id number] Implanted:Qty: 1 on 12/31/2019 by Azam Boo MD at OR [facility] Right: Eye BAUSCH & LOMB 07/06/2024 [id number] / [id number] / [id number] documented as of this encounter Visit Diagnoses Diagnosis De Quervain's tenosynovitis, left- Primary Radial styloid tenosynovitis documented in this encounter Advance Directives * Full Code (Latest Code Status on File) Date Activated Date Inactivated Comments 11/18/2016 1:02 PM 11/19/2016 3:42 PM This order r eflects the patients wishes and were consensually agreed upon. Care Teams Office Runner Relationship Specialty Start Date End Date Rosy Cummins PA-C [address] [place] [address] PCP - General Physician Import/Export Clerk 02/17/21 documented as of this encounter
--- OUTSIDE RECORDS SUMMARY | 2024-06-29 11:04 | External Medical Summary | Summary of Care ---
Author Name Unknown Organization [facility] Address [address] [facility] [place] [address] Phone [phone] Care Team Providers Care Supervisor Telephone Answering Service Name Role Phone Rosy Cummins PA-C Primary Care Provider [phone] Encounter Details Date Type Department Care Team (Late st Contact Info) Description 03/15/2024 Population Health External Data Unspecified Department Allergies Active Allergy Reactions Criticality Noted Date Comments Azelastine Nausea/vomiting 12/29/2023 Cetirizine Other (Please comment) 11/22/2021 headache Latex Rash 10/14/2021 Metoprolol Unknown 10/14/2021 Sulfa Antibiotics 08/13/2002 bactrim only-itching afater 1 week Tartaric Acid Unknown 10/14/2021 Valacyclovir 11/23/2022 Renal calculi documented as of this encounter (statuses as of 03/16/2024) Medications Multiple Vitamins-Minerals (DAILY MULTIVITAMIN) CAPS Take [...] 15 MG Oral Tablet (Buspar)Indications :Stress Oneh [facility] to one [...] in the morning. 100 Tablet 3 4 6:55 AM EDT 04/08/20 23 Active Additional Information Patient not [...] Sodium Hyaluronate 60 MG/3ML Intra-articular Prefilled Syringe (DurMyStarAutograph) Inject contents of prefilled syringe into the [...] inj 1,000 mcgIndications:B12 deficiency 1000 mcg IM [id number] 01/27/2024 12/28/2024 Active documented as of this encounter (statuses as of 03/16/2024) Active Problems Problem Noted Date Diagnosed Date Chronic obstructive pulmonary disease 01/27/2024 Old [place] (myocardial infarction) 01/27/2024 Prediabetes 12/19/2023 Overview: Per [...] as of this encounter (statuses as of 03/16/2024) Resolved Problems Problem Noted Date Diagnosed Date [...] as of this encounter (statuses as of 03/16/2024) Immunizations Name Administration Dates Next Due Pneumococcal Conjugate Vacci ne, 20-valent (Isgzplh06) 04/08/2023 Pneumococcal Polysaccharide PPV23 (Pneumovax) 03/20/2016 Seasonal [...] pur e alcohol) occational glass of wine Comments No Sex and Gender Information Value Date Recorded Sex Assigned at Not on file Legal Sex Female 5:57 AM EST Gender Identity Not on file Sexual Orientation Straight 10/16/2021 3: 01 PM EDT 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, 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 Not on file documented as of this encounter Plan of Treatment Upcoming Encounters Date Type Department Care Team (Late st Contact Info) Description 03/19/2024 11:00 AM EST Office Visit Gynecology/Obstetrics [facility] [address] [place] [address] Jefe Lagunas MD [address] [place] [address] 03/20/2024 11:45 AM EST Office Visit Gynecology/Obstetrics [facility] [address] [place] [address] Jefe Lagunas MD [address] [place] [address] 03/23/2024 9:00 AM EST Office Visit Orthopaedics [facility] [address] [place] [address] Salinas Levine PA-C [address] [place] [address] 03/26/2024 11:30 AM EST Office Visit Otolaryngology [facility] [address] [place] [address] Melvin Horta PA-C [address] [place] [address] 05/17/2024 1:00 PM EST Office Visit Allergy/Immunology [facility] [place] [address] [facility] [place] [address] Carlo Arambula MD [address] [facility] [place] [address] 06/04/2024 11:30 AM EST Office Visit [facility]tr [place] [address] [place] [address] Trino Mills CRNP [address] [facility] [place] [address] 08/01/2024 11:15 AM EDT Office Visit Orthopaedics [facility] [address] [place] [address] Salinas Levine PA-C [address] [place] [address] 09/17/2024 11:30 AM EDT Office Visit Cardiology, [facility] [address] [place] [address] Rashaun Felix MD [address] [place] [address] Scheduled Procedures Name Priority Associated Diagnoses Date/Ti [...] this encounter Medical Devices Implanted Type Area Electrical Controls Designer Device Identifier Shelf Expiration Date Model / Serial / Lot Lens Intraoc 11.5 - [id number] - [id number] Implanted:Qty: 1 on 12/18/2019 by Azam Boo MD at OR [facility] Left: Eye BAUSCH & LOMB 10/06/2021 [id number] / [id number] / Lens Intraoc 11.5 - [id number] - [id number] Implanted:Qty: 1 on 12/31/2019 by Azam Boo MD at OR [facility] Right: Eye BAUSCH & LOMB 07/06/2024 [id number] / [id number] / [id number] documented as of this encounter Advance Directives * Full Code (Latest Code Status on File) Date Activated Date Inactivated Comments 11/18/2016 1:02 PM 11/19/2016 3:42 PM This order r eflects the patients wishes and were consensually agreed upon. Care Teams Supervisor Telephone Answering Service Relationship Specialty Start Date End Date Rosy Cummins PA-C [address] [place] [address] PCP - General Physician Coil Cleaner 02/17/21 documented as of this encounter
--- OUTSIDE RECORDS SUMMARY | 2024-06-29 11:04 | External Medical Summary | Summary of Care ---
Author Name Unknown Organization [facility] Address [address] [facility] [place] [address] Phone [phone] Care Team Providers Care Building Insulation Installer Name Role Phone Rosy Cummins PA-C Primary Care Provider [phone] Reason for Referral * Evaluate & Treat - Unlimited Visits (Within 10 days (routine)) - Authorized Specialty Diagnoses / Procedures Referred By Jeremías staley Referred To Contact Physical Therapy / Physical Medicine And Rehab Diagnoses De Quervain's tenosynovitis, left Salinas Levine PA-C [address] [place] [address] Phone: tel: fax: Referral ID Status Reason Start Date Expiration Date Visits Requested Visits Authorized [id number] Authorized Specialty Services Required 4 [phone] Question Answer Referral Priority Within 10 days (routine) Where should this appointment be scheduled? [facility] Reason for Visit * Reason Comments Follow Up Left thumb Encounter Details Date Type Department Care Team (Late st Contact Info) Description 03/23/2024 9:00 AM EST Office Visit Orthopaedics [facility] [address] [place] [address] Salinas Levine PA-C [address] [place] [address] De Quervain's tenosynovitis, left* Allergies Active Allergy [...] inj 1,000 mcgIndications:B12 deficiency 1000 mcg IM [id number] 01/27/2024 12/28/2024 Active documented as of this encounter (statuses as of 03/23/2024) Active Problems Problem Noted Date Diagnosed Date Chronic obstructive pulmonary disease 01/27/2024 Old [place] [...] Next Due Pneumococcal Conjugate Vacci ne, 20-valent ([id number]) 04/08/2023 Pneumococcal Polysaccharide PPV23 (Pneumovax) 03/20/2016 Seasonal [...] 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 Denies [...] 2 seconds, good sensation light touch, +5 hand stone polisher strength, axillary median ulnar radial nerve assess [...] This chart was completed in part utilizing [employer] Speech Voice Recognition Software. Grammatical errors, random [...] left thumb follow up. 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 RHD. Previously injected in [facility] 02/01/24, and is unsure if it worked. documented in this encounter Plan of Treatment Upcoming Encounters Date Type Department Care Team (Late st Contact Info) Description 03/26/2024 11:30 AM EST Office Visit Otolaryngology [facility] [address] [place] [address] Melvin Horta PA-C [address] [place] [address] 03/28/2024 12:30 PM EST Office Visit Gynecology/Obstetrics [facility] [address] [place] [address] Jefe Lagunas MD [address] [place] [address] 04/03/2024 3:15 PM EST Office Visit Gynecology/Obstetrics [facility] [address] [place] [address] Jefe Lagunas MD [address] [place] [address] 04/25/2024 3:30 PM EST Telemedicine Orthopaedics [facility] [address] [place] [address] Salinas Levine PA-C [address] [place] [address] 05/17/2024 1:00 PM EST Office Visit Allergy/Immunology [facility] [place] [address] [place] [address] Carlo Arambula MD [address] [place] [address] 06/04/2024 11:30 AM EST Office Visit [facility] [place] [address] [place] [address] Trino Mills CRNP 16 [place] [address] 08/01/2024 11:15 AM EDT Office Visit Orthopaedics [facility] [address] [place] [address] Salinas Levine PA-C [address] [place] [address] 09/17/2024 11:30 AM EDT Office Visit Cardiology, [facility] [address] [facility] [place] [place] [address] Rashaun Felix MD [address] [place] [address] Scheduled Procedures Name Priority Associated Diagnoses Date/Ti [...] this encounter Medical Devices Implanted Type Area Community Chest Officer Device Identifier Shelf Expiration Date Model / Serial / Lot Lens Intraoc 11.5 - [id number] - [id number] Implanted:Qty: 1 on 12/18/2019 by Azam Boo MD at OR [facility] Left: Eye BAUSCH & LOMB 10/06/2021 [id number] / [id number] / Lens Intraoc 11.5 - [id number] - [id number] Implanted:Qty: 1 on 12/31/2019 by Azam Boo MD at OR [facility] Right: Eye BAUSCH & LOMB 07/06/2024 [id number] / [id number] / [id number] documented as of this encounter Visit Diagnoses Diagnosis De Quervain's tenosynovitis, left- Primary Radial styloid tenosynovitis documented in this encounter Advance Directives * Full Code (Latest Code Status on File) Date Activated Date Inactivated Comments 11/18/2016 1:02 PM 11/19/2016 3:42 PM This order r eflects the patients wishes and were consensually agreed upon. Care Teams Building Insulation Installer Relationship Specialty Start Date End Date Rosy Cummins PA-C [address] [place] [address] PCP - General Physician Ferryboat Operator Cable 02/17/21 documented as of this encounter
--- OUTSIDE RECORDS SUMMARY | 2024-06-29 11:04 | External Medical Summary | Summary of Care ---
Author Name Unknown Organization [facility] Address [address] [facility] [place] [address] Phone [phone] Care Team Providers Care Wig Stylist Name Role Phone Rosy Cummins PA-C Primary Care Provider [phone] [phone] Encounter Details Date Type Department Care Team (Late st Contact Info) Description 03/02/2024 Result Scan Unspecified Department <No scans attached> Allergies Active Allergy Reactions Criticality Noted Date [...] 15 MG Oral Tablet (Buspar)Indications :Stress Oneh correction to one whole tab by mouth up [...] BEDTIME 90 Tablet 1 03/01/20 24 Active Hospital, Clinic, or Other Facility Administered Medication Ordered Dose Route Frequency Start Date End Date Status Vitamin B-12 (Cyanocobalamin) inj 1,000 mcgIndications:B12 deficiency 1000 mcg IM [id number] 01/27/2024 12/28/2024 Active documented as of this encounter (statuses as of 03/23/2024) Active Problems Problem Noted Date Diagnosed Date Chronic obstructive pulmonary disease 01/27/2024 Old [place] (myocardial infarction) 01/27/2024 Prediabetes 12/19/2023 Overview: Per [...] Next Due Pneumococcal Conjugate Vacci ne, 20-valent ([id number]) 04/08/2023 Pneumococcal Polysaccharide PPV23 (Pneumovax) 03/20/2016 Seasonal [...] 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, 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 Not on file documented as of this encounter Plan of Treatment Upcoming Encounters Date Type Department Care Team (Late st Contact Info) Description 03/26/2024 11:30 AM EST Office Visit Otolaryngology [facility] [address] [place] [address] Melvin Horta PA-C [address] [place] [address] 03/28/2024 12:30 PM EST Office Visit Gynecology/Obstetrics [facility] [address] [place] [address] Jefe Lagunas MD [address] [place] [address] 04/03/2024 3:15 PM EST Office Visit Gynecology/Obstetrics [facility] [address] [place] [address] Jefe Lagunas MD [address] [place] [address] 04/25/2024 3:30 PM EST Telemedicine Orthopaedics [facility] [address] [place] [address] Salinas Levine PA-C [address] [place] [address] 05/17/2024 1:00 PM EST Office Visit Allergy/Immunology [facility] [address] [place] [address] Carlo Arambula MD 200 [place] [address] 06/04/2024 11:30 AM EST Office Visit Interventional Pain Ctr [facility] [address] [place] [address] Trino Mills CRNP [address] [place] [address] 08/01/2024 11:15 AM EDT Office Visit [facility] [address] [facility] [place] [address] Salinas Levine PA-C [address] [place] [address] 09/17/2024 11:30 AM EDT Office Visit Cardiology, [facility] [address] [place] [address] Rashaun Felix MD [address] [place] [address] Scheduled Procedures Name Priority Associated Diagnoses Date/Ti [...] this encounter Medical Devices Implanted Type Area Linux Network Systems Administrator Device Identifier Shelf Expiration Date Model / Serial / Lot Lens Intraoc 11.5 - [id number] - [id number] Implanted:Qty: 1 on 12/18/2019 by Azam Boo MD at OR [facility] Left: Eye BAUSCH & LOMB 10/06/2021 [id number] / [id number] / Lens Intraoc 11.5 - [id number] - [id number] Implanted:Qty: 1 on 12/31/2019 by Azam Boo MD at OR [facility] Right: Eye BAUSCH & LOMB 07/06/2024 [id number] / [id number] / [id number] documented as of this encounter Procedures Procedure Name Priority Date/Time Associated Diagnosis Comments OUTSIDE LAB RESULTS 03/02/2024 documented in this encounter Results * OUTSIDE LAB RESULTS (03/02/2024) 03/02/2024 us No Physician Data Unknown LABORATORY Final Result documented in this encounter Advance Directives * Full Code (Latest Code Status on File) Date Activated Date Inactivated Comments 11/18/2016 1:02 PM 11/19/2016 3:42 PM This order r eflects the patients wishes and were consensually agreed upon. Care Teams Wig Stylist Relationship Specialty Start Date End Date Rosy Cummins PA-C [address] [facility] [place] [address] PCP - General Physician Terminal Makeup Operator 02/17/21 documented as of this encounter
--- OUTSIDE RECORDS SUMMARY | 2024-06-29 11:04 | External Medical Summary | Summary of Care ---
Author Name Unknown Organization [facility] Address [address] [facility] [address] Phone [phone] Care Team Providers Care Drying Machine Operator Name Role Phone Rosy Cummins PA-C Primary Care Provider +1 -[phone] Reason for Referral * Evaluate & Treat - Unlimited Visits (Within 3 days (urgent)) - Authorized Specialty Diagnoses / Procedures Referred By Contterry t Referred To Contact Gynecologic Oncology / Gynecology Oncology Diagnoses Malignant neoplasm of endometrium (HCC) Jefe Lagunas MD [address] [place] [address] Phone: tel: fax: Referral ID Status Reason Start Date Expiration Date Visits Requested Visits Authorized [id number] Authorized Specialty Services Required 4 [phone] Question Answer Referral Priority Within 3 days (urgent) Where should this appointment be scheduled? [facility] Comments Endometrial ca. Proffered contact is home phone Reason for Visit * Reason Onset Date Comments Appointment 03/28/2024 Encounter Details Date Type Department Care Team (Late Contact Info) Description 03/28/2024 Telephone Gynecology/Obstetrics [facility] [address] [place] [address] Jefe Lagunas MD [address] [employer] [place] [address] Appointment Allergies Active Allergy [...] inj 1,000 mcgIndications:B12 deficiency 1000 mcg IM [id number] 01/27/2024 12/28/2024 Active documented as of this encounter (statuses as of 03/28/2024) Active Problems Problem Noted Date Diagnosed Date Chronic obstructive pulmonary disease 01/27/2024 Old [place] (myocardial infarction) 01/27/2024 Prediabetes 12/19/2023 Overview: Per [...] Next Due Pneumococcal Conjugate Vacci ne, 20-valent ([id number]) 04/08/2023 Pneumococcal Polysaccharide PPV23 (Pneumovax) 03/20/2016 Seasonal [...] 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, 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 [...] 04/03/2024 3:15 PM EST Office Visit Gynecology[facility]Ob[facility] [address] [address] Jefe Lagunas MD [address] [place] [address] 04/25/2024 3:30 PM EST Telemedicine Orthopaedics [facility] [address] [place] [address] Salinas Levine PA-C 132 [place] [address] 05/17/2024 1:00 PM EST [facility] [address] [facility] [place] [address] Carlo Arambula MD 200 [facility] [place] [address] 06/04/2024 11:30 AM EST Office Visit Interventional Pain Ctr [facility] [address] [place] [address] Trino Mills CRNP [address] [place] [address] 08/01/2024 11:15 AM EDT Office Visit Orthopaedics [facility] 132 [place] [address] Salinas Levine PA-C 132 [place] [address] 09/17/2024 11:30 AM EDT Office Visit Cardiology, [facility] 132 [place] [address] Rashaun Felix MD 132 [place] [address] Scheduled Procedures Name Priority Associated Diagnoses Date/Ti me COLONOSCOPY FLEXIBLE PROXIMA L DIAGNOSTIC Recall Encounter for screening colonoscopy Scheduled Referrals Name Type Priority Associated Diagnoses Orde r Schedule BLEACHER PULP/ONC REFERRAL OP Referral Within 3 day s [...] this encounter Medical Devices Implanted Type Area Payable Processor Device Identifier Shelf Expiration Date Model / Serial / Lot Lens Intraoc 11.5 - [id number] - [id number] Implanted:Qty: 1 on 12/18/2019 by Azam Boo MD at OR [facility] Left: Eye BAUSCH [employer] LOMB 10/06/2021 [id number] / [id number] / Lens Intraoc 11.5 - [id number] - [id number] Implanted:Qty: 1 on 12/31/2019 by Azam Boo MD at OR [facility] Right: Eye BAUSCH & LOMB 07/06/2024 [id number] / [id number] / [id number] documented as of this encounter Visit Diagnoses Diagnosis Malignant neoplasm of endometrium (HCC)- Primary Malignant neoplasm of corpus uteri, except isthmus documented in this encounter Advance Directives * Full Code (Latest Code Status on File) Date Activated Date Inactivated Comments 11/18/2016 1:02 PM 11/19/2016 3:42 PM This order r eflects the patients wishes and were consensually agreed upon. Care Teams Drying Machine Operator Relationship Specialty Start Date End Date Rosy Cummins PA-C [address] [place] [address] PCP - General Physician Pull Over 02/17/21 documented as of this encounter
--- OUTSIDE RECORDS SUMMARY | 2024-06-29 11:05 | External Medical Summary | Summary of Care ---
Author Name Unknown Organization [facility] Address [address] [place] [facility] [place] [address] Phone [phone] Care Team Providers Care Mate Fishing Vessel Name Role Phone Rosy Jansen PA-C Primary Care Provider +1 [phone] Reason for Visit * Reason Comments Acute [...] Description 03/14/2024 10:20 AM EST Office Visit [facility] [address] [place] [address] Rosy Jansen PA-C [address], [place] [id number] Dysuria*; Acute cystitis without hematuria; Right foot [...] inj 1,000 mcgIndications:B12 deficiency 1000 mcg IM [id number] 01/27/2024 12/28/2024 Active documented as of this encounter (statuses as of 03/14/2024) Active Problems Problem Noted Date Diagnosed Date Chronic obstructive pulmonary disease 01/27/2024 Old [place] [...] PPD 10/31/2001,03/24/1999,01/19/1994 Pneumococcal Conjugate Vacci ne, 20-valent ([id number]) 04/08/2023 Pneumococcal Polysaccharide PPV23 (Pneumovax) 03/20/2016,02/24/2000 Seasonal [...] Visit Gynecology/Obstetrics Jud Castellanos [address] [place] [address] Jefe Lagunas MD [address] [place] [address] 03/20/2024 11:45 AM EST Office Visit Gynecology/Obstetrics Jud Castellanos [address] [place] [address] Jefe Lagunas MD [address] [place] [address] 03/23/2024 9:00 AM EST Office Visit Orthopaedics [facility] 132 [facility] [place] [address] Salinas Levine PA-C [address] [place] [address] 03/26/2024 11:30 AM EST Office Visit Otolaryngology [facility] [address] [facility] [place] [address] Melvin Horta PA-C 132 [place] [address] 05/17/2024 1:00 PM EST Office Visit Allergy/Immunology [facility] [address] [place] [address] Carlo Arambula MD [address] [place] [address] 06/04/2024 11:30 AM EST Office Visit [facility] [address] [place] [address] Trino Mills CRNP [address] [place] [address] 08/01/2024 11:15 AM EDT Office Visit Orthopaedics [facility] [address] [facility] [place] [address] Salinas Levine PA-C [address] [facility] [place] [address] 09/17/2024 11:30 AM EDT Office Visit Cardiology, [facility] [address] [address] Rashaun Felix MD [address] [place] [address] Pending Results Name Type Priority Associated Diagnoses [...] this encounter Medical Devices Implanted Type Area Qc Scientist Device Identifier Shelf Expiration Date Model / Serial / Lot Lens Intraoc 11.5 - [id number] - [id number] Implanted:Qty: 1 on 12/18/2019 by Azam Boo MD at OR [facility] Left: Eye BAUSCH & LOMB 10/06/2021 [id number] / [id number] / Lens Intraoc 11.5 - [id number] - [id number] Implanted:Qty: 1 on 12/31/2019 by Azam Boo MD at OR [facility] Right: Eye BAUSCH & LOMB 07/06/2024 [id number] / [id number] / [id number] documented as of this encounter Procedures Procedure Name Priority Date/Time Associated Diagnosis Comments URINALYSIS, POINT OF CARE (ENTER/EDIT) Routine 03/14/2024 Dysuria documented in this encounter Results * (ABNORMAL) URINALYSIS, POINT OF CARE (ENTER/EDIT) (03/14/2024) Color, Urine Light Yellow Yellow or Light Yellow Clarity, Urine Slightly Cloudy Clear Glucose, Urine Negative Negative mg/dL Bilirubin, Urine Negative Negative Ketone, Urine Negative Negative mg/dL Specific [place], Urine 1.030 1.003 - 1.030 Blood, Urine [...] (Cyanocobalamin) inj 1,000 mcg 1,000 mcg, Intramuscular, [id number], First dose on Tue01/27/24 at 1115, Last [...] and were consensually agreed upon. Care Teams Mate Fishing Vessel Relationship Specialty Start Date End Date Rosy Jansen PA-C [address] [place] [address] PCP - General Physician Instrument Maker Apprentice 02/17/21 documented as of this encounter
--- OUTSIDE RECORDS SUMMARY | 2024-06-29 11:05 | External Medical Summary | Summary of Care ---
Author Name Unknown Organization [facility] Address [address] [facility] [place] [address] Phone [phone] Care Team Providers Care Vice President Global Digital Marketing Name Role Phone Rosy Jansen PA-C Primary Care Provider +1 [phone] Reason for Visit * Reason Comments Acute [...] Description 03/14/2024 10:20 AM EST Office Visit [facility] [address] [place] [address] Rosy Jansen PA-C [address], [place] [phone] Dysuria*; Acute cystitis without hematuria; Right foot [...] inj 1,000 mcgIndications:B12 deficiency 1000 mcg IM [id number] 01/27/2024 12/28/2024 Active documented as of this encounter (statuses as of 03/14/2024) Active Problems Problem Noted Date Diagnosed Date Chronic obstructive pulmonary disease 01/27/2024 Old [place] (myocardial infarction) 01/27/2024 Prediabetes 12/19/2023 Overview: Per [...] PPD 10/31/2001,03/24/1999,01/19/1994 Pneumococcal Conjugate Vacci ne, 20-valent ([id number]) 04/08/2023 Pneumococcal Polysaccharide PPV23 (Pneumovax) 03/20/2016,02/24/2000 Seasonal [...] PA-C - 03/14/2024 11:46 AM ESTAddended by: ORSY JANSEN on: 03/14/2024 11:46 AM Modules accepted: Orders documented in this encounter Plan of Treatment Upcoming Encounters Date Type Department Care Team (Late st Contact Info) Description 03/19/2024 11:00 AM EST Office Visit Gynecology/Obstetrics Jud Castellanos [address] [place] [address] Jefe Lagunas MD [address] [place] [address] 03/20/2024 11:45 AM EST Office Visit Gynecology/Obstetrics Jud Castellanos [address] [place] [address] Jefe Lagunas MD [address] [place] [address] 03/23/2024 9:00 AM EST Office Visit Orthopaedics [facility] 132 [facility] [place] [address] Salinas Levine PA-C [address] [place] [address] 03/26/2024 11:30 AM EST Office Visit Otolaryngology [facility] [address] [facility] [place] [address] Melvin Horta PA-C 132 [place] [address] 05/17/2024 1:00 PM EST Office Visit Allergy/Immunology [facility] [address] [place] [address] Carlo Arambula MD [address] [place] [address] 06/04/2024 11:30 AM EST Office [facility] [address] [place] [address] Trino Mills CRNP [address] [place] [address] 08/01/2024 11:15 AM EDT Office Visit Orthopaedics [facility] [address] [facility] [place] [address] Salinas Levine PA-C [address] [facility] [place] [address] 09/17/2024 11:30 AM EDT Office Visit Cardiology, [facility] [address] [address] Rashaun Felix MD [address] [address] Scheduled Orders Name Type Priority Associated Diagnoses Orde r Schedule CULTURE, URINE, QUANTITATIVE Lab Routine Dysuria Ordered: 03/14/2024 XR FOOT 3 OR MORE VIEWS Medical [...] this encounter Medical Devices Implanted Type Area Torch Brazer Device Identifier Shelf Expiration Date Model / Serial / Lot Lens Intraoc 11.5 - [id number] - [id number] Implanted:Qty: 1 on 12/18/2019 by zAam Boo MD at OR [facility] Left: Eye BAUSCH & LOMB 10/06/2021 [id number] / [id number] / Lens Intraoc 11.5 - [id number] - [id number] Implanted:Qty: 1 on 12/31/2019 by Azam Boo MD at OR [facility] Right: Eye BAUSCH & LOMB 07/06/2024 [id number] / [id number] / [id number] documented as of this encounter Procedures Procedure Name Priority Date/Time Associated Diagnosis Comments URINALYSIS, POINT OF CARE (ENTER/EDIT) Routine 03/14/2024 Dysuria documented in this encounter Results * (ABNORMAL) URINALYSIS, POINT OF CARE (ENTER/EDIT) (03/14/2024) Color, Urine Light Yellow Yellow or Light Yellow Clarity, Urine Slightly Cloudy Clear Glucose, Urine Negative Negative mg/dL Bilirubin, Urine Negative Negative Ketone, Urine Negative Negative mg/dL Specific [place], Urine 1.030 1.003 - 1.030 Blood, Urine [...] (Cyanocobalamin) inj 1,000 mcg 1,000 mcg, Intramuscular, [id number], First dose on Tue01/27/24 at 1115, Last [...] and were consensually agreed upon. Care Teams Vice President Global Digital Marketing Relationship Specialty Start Date End Date Rosy Jansen PA-C [address] [place] [address] PCP - General Physician Drapery Counselor 02/17/21 documented as of this encounter
--- OUTSIDE RECORDS SUMMARY | 2024-06-29 11:05 | External Medical Summary | Summary of Care ---
Author Name Unknown Organization [facility] Address [address] [facility] [place] [address] Phone [phone] Care Team Providers Care Anode Crew Supervisor Name Role Phone Rosy Cummins PA-C Primary Care Provider +1 [phone] Reason for Visit * Reason Comments Acute [...] Description 03/14/2024 10:20 AM EST Office Visit [facility] [address] [place] [address] Rosy Cummins PA-C [address] [place], [place] [phone] Dysuria*; Acute cystitis without hematuria Allergies Active Allergy Reactions Criticality Noted Date [...] 15 MG Oral Tablet (Buspar)Indications: Stress Oneh mcc to one whole tab by mouth up [...] inj 1,000 mcgIndications:B12 deficiency 1000 mcg IM [id number] 01/27/2024 12/28/2024 Active documented as of this encounter (statuses as of 03/14/2024) Active Problems Problem Noted Date Diagnosed Date Chronic obstructive pulmonary disease 01/27/2024 Old [place] (myocardial infarction) 01/27/2024 Prediabetes 12/19/2023 Overview: Per Prediabetes protocol Body mass index (BMI) 40.0-44.9, adult 02/26/202 4 Hyperlipidemia with target LDL less than [...] PPD 10/31/2001,03/24/1999,01/19/1994 Pneumococcal Conjugate Vacci ne, 20-valent ([id number]) 04/08/2023 Pneumococcal Polysaccharide PPV23 (Pneumovax) 03/20/2016,02/24/2000 Seasonal [...] Verified Shot(s) with Parent(s)/Patient: Yes * Rosy Cummins PA-C - 03/14/2024 10:31 AM EST Images [...] if this was from urine or vaginal Physical Exam Vitals: 03/14/24 1012 Temp: 36.2 [...] turgor are normal, no rashes or significant lesions Assessment and Plan Dysuria (Primary) - URINALYSIS, POINT OF CARE (ENTER/EDIT) - CULTURE, URINE, QUANTITATIVE Acute cystitis without hematuria - Amoxicillin-Pot Clavulanate 875-125 MG Oral Tablet (Augmentin); Take 1 Tablet by mouth in the morning and 1 Tablet before bedtime. - Fluconazole 150 MG Oral Tablet (Diflucan); Take one tab every 3 days while on antibiotic Other orders - Nitroglycerin 0.4 MG Sublingual Tablet Sublingual (Nitrostat); Place 1 Tablet under the tongue asneeded for Pain, Chest. May repeat 3 times. If chest pain continues, call 911. - rOPINIRole HCl 0.25 MG Oral Tablet (Requip); Take 1 Tablet by mouth in the morning and 1 Tablet at noon and 1 Tablet before bedtime. With food.. Push fluids Wrap-Up Time: I spent a total of 20-29 minutes (exact time 24 mins) on the date of service in preparation, delivery, and documentation of the care provided to Kateryna rOtez excluding any time spent in the performance of separately billed services. Rosy Cummins PA-C 03/14/2024 10:44 AM documented in this [...] a B-12 injection. documented in this encounter Plan of Treatment Upcoming Encounters Date Type Department Care Team (Late st Contact Info) Description 03/19/2024 11:00 AM EST Office Visit Gynecology/Obstetrics [facility] [address] [place] [address] Jefe Lagunas MD [address] [place] [address] 03/20/2024 11:45 AM EST Office Visit Gynecology/Obstetrics [facility] [address] [place] [address] Jefe Lagunas MD [address] [place] [address] 03/23/2024 9:00 AM EST Office Visit Orthopaedics [facility] [address] [place] [address] Salinas Levine PA-C [address] [place] [address] 03/26/2024 11:30 AM EST Office Visit Otolaryngology [facility] [address] [place] [address] Melvin Horta PA-C [address] [place] [address] 05/17/2024 1:00 PM EST Office Visit Allergy/Immunology [facility] [address] [place] [address] Carlo Arambula MD 200 [facility] [place] [address] 06/04/2024 11:30 AM EST [facility] [address] [place] [address] Trino Mills CRNP [address] [place] [address] 08/01/2024 11:15 AM EDT Office Visit Orthopaedics [facility] [address] [facility] [place] [address] Salinas Levine PA-C [address] [place] [address] 09/17/2024 11:30 AM EDT Office Visit Cardiology, [facility] [address] [place] [address] Rashaun Felix MD [address] [place] [address] Scheduled Orders Name Type Priority Associated Diagnoses Orde r Schedule CULTURE, URINE, QUANTITATIVE Lab Routine Dysuria Ordered: 03/14/2024 Scheduled Procedures Name Priority Associated Diagnoses Date/Ti [...] this encounter Medical Devices Implanted Type Area Burrer Machine Device Identifier Shelf Expiration Date Model / Serial / Lot Lens Intraoc 11.5 - [id number] - [id number] Implanted:Qty: 1 on 12/18/2019 by Azam Boo MD at OR [facility] Left: Eye BAUSCH & LOMB 10/06/2021 [id number] / [id number] / Lens Intraoc 11.5 - [id number] - [id number] Implanted:Qty: 1 on 12/31/2019 by Azam Boo MD at OR [facility] Right: Eye BAUSCH & LOMB 07/06/2024 [id number] / [id number] / [id number] documented as of this encounter Procedures Procedure Name Priority Date/Time Associated Diagnosis Comments URINALYSIS, POINT OF CARE (ENTER/EDIT) Routine 03/14/2024 Dysuria documented in this encounter Results * (ABNORMAL) URINALYSIS, POINT OF CARE (ENTER/EDIT) (03/14/2024) Color, Urine Light Yellow Yellow or Light Yellow Clarity, Urine Slightly Cloudy Clear Glucose, Urine Negative Negative mg/dL Bilirubin, Urine Negative Negative Ketone, Urine Negative Negative mg/dL Specific [place], Urine 1.030 1.003 - 1.030 Blood, Urine Negative Negative pH, Urine 5.5 5.0 - 7.5 units Protein, Urine Negative Negative mg/dL Urobilinogen, Urine 0.2 0.2 - 1.0 mg/dL Nitrite, Urine Negative Negative Esterase, Urine Trace Negative Urine 03/14/2024 Rosy Cummins PA-C LAB POINT OF CARE TEST ENTER/EDIT ORDERABLES documented in this encounter Visit Diagnoses Diagnosis Dysuria- Primary Acute cystitis without hematuria Acute cystitis documented in this encounter Administered Medications Active Administered Medications - up to 3 most recent administrations Medication Order MAR Action Action Date Dose Rate Site Vitamin B-12 (Cyanocobalamin) inj 1,000 mcg 1,000 mcg, Intramuscular, [id number], First dose on Tue01/27/24 at 1115, Last [...] and were consensually agreed upon. Care Teams Anode Crew Supervisor Relationship Specialty Start Date End Date Rosy Cummins PA-C [address] [address] PCP - General Physician Program Professional 02/17/21 documented as of this encounter
--- OUTSIDE RECORDS SUMMARY | 2024-06-29 11:05 | External Medical Summary | Summary of Care ---
Author Name Unknown Organization [facility] Address [address] [place] [facility] [place] [address] Phone [phone] Care Team Providers Care Burring Machine Operator Name Role Phone Rosy Jansen PA-C Primary Care Provider +1 [phone] Reason for Visit * Reason Comments Acute [...] Description 03/14/2024 10:20 AM EST Office Visit [facility] [address] [place] [address] Rosy Jansen PA-C [address] [place], [place] [address] Dysuria*; Acute cystitis without hematuria; Right foot [...] inj 1,000 mcgIndications:B12 deficiency 1000 mcg IM [id number] 01/27/2024 12/28/2024 Active documented as of this [...] PPD 10/31/2001,03/24/1999,01/19/1994 Pneumococcal Conjugate Vacci ne, 20-valent ([id number]) 04/08/2023 Pneumococcal Polysaccharide PPV23 (Pneumovax) 03/20/2016,02/24/2000 Seasonal [...] Visit Gynecology/Obstetrics [facility] Castellanos [address] [place] [address] Jefe Lagunas MD [address] [place] [address] [address] 03/20/2024 11:45 AM EST Office Visit Gynecology/Obstetrics Jud Castellanos [address] [place] [address] Jefe Lagunas MD [address] [place] [address] 03/23/2024 9:00 AM EST Office Visit Orthopaedics [facility] 132 [facility] [address] Salinas Levine PA-C [address] [facility] [place] [address] 03/26/2024 11:30 AM EST Office Visit Otolaryngology [facility] [address] [facility] [address] Melvin Horta PA-C [address] [place] [address] 05/17/2024 1:00 PM EST Office Visit Allergy/Immunology [facility] [address] [place] [address] Carlo Arambula MD [address] [place] [address] 06/04/2024 11:30 AM EST Office [facility] [place] [address] [place] [address] Trino Mills CRNP [address] [place] [address] 08/01/2024 11:15 AM EDT Office Visit Orthopaedics [facility] [address] [facility] [address] Salinas Levine PA-C [address] [facility] [place] [address] 09/17/2024 11:30 AM EDT Office Visit Cardiology, [facility] [address] [address] Rashaun Felix MD [address] [address] Pending Results Name Type Priority Associated Diagnoses [...] this encounter Medical Devices Implanted Type Area Supervisor Instrument Maintenance Device Identifier Shelf Expiration Date Model / Serial / Lot Lens Intraoc 11.5 - [id number] - [id number] Implanted:Qty: 1 on 12/18/2019 by Azam Boo MD at OR [facility] Left: Eye BAUSCH & LOMB 10/06/2021 [id number] / [id number] / Lens Intraoc 11.5 - [id number] - [id number] Implanted:Qty: 1 on 12/31/2019 by Azam Boo MD at OR [facility] Right: Eye BAUSCH & LOMB 07/06/2024 [id number] / [id number] / [id number] documented as of this encounter Procedures Procedure Name Priority Date/Time Associated Diagnosis Comments URINALYSIS, POINT OF CARE (ENTER/EDIT) Routine 03/14/2024 Dysuria documented in this encounter Results * (ABNORMAL) URINALYSIS, POINT OF CARE (ENTER/EDIT) (03/14/2024) Color, Urine Light Yellow Yellow or Light Yellow Clarity, Urine Slightly Cloudy Clear Glucose, Urine Negative Negative mg/dL Bilirubin, Urine Negative Negative Ketone, Urine Negative Negative mg/dL Specific [place], Urine 1.030 1.003 - 1.030 Blood, Urine [...] (Cyanocobalamin) inj 1,000 mcg 1,000 mcg, Intramuscular, [id number], First dose on Tue01/27/24 at 1115, Last [...] and were consensually agreed upon. Care Teams Burring Machine Operator Relationship Specialty Start Date End Date Rosy Jansen PA-C [address] [place] [address] PCP - General Physician Bleach Supervisor 02/17/21 documented as of this encounter
--- OUTSIDE RECORDS SUMMARY | 2024-06-29 11:06 | External Medical Summary | Summary of Care ---
Author Name Unknown Organization [facility] Address [address] [facility] [place] [address] Phone [phone] Care Team Providers Care Loft Worker Apprentice Name Role Phone Rosy Cummins PA-C Primary Care Provider [phone] [phone] Encounter Details Date Type Department Care Team (Late st Contact Info) Description 03/02/2024 Result Scan Unspecified Department Jefe Lagunas MD [address] [place] [address] <No scans attached> Allergies Active Allergy Reactions Criticality Noted Date Comments Azelastine Nausea/vomiting 12/29/2023 Cetirizine Other (Please comment) 11/22/2021 headache Latex Rash 10/14/2021 Metoprolol Unknown 10/14/2021 Sulfa Antibiotics 08/13/2002 bactrim only-itching afater 1 week Tartaric Acid Unknown 10/14/2021 Valacyclovir 11/23/2022 Renal calculi documented as of this encounter (statuses as of 03/07/2024) Medications Medication Sig Dispensed Refills Start Date End Date Status Multiple Vitamins-Minerals (DAILY MULTIVITAMIN) CAPS Take 1 Capsule by mouth every evening. 03/15/2016 Active Zinc 25 MG TABS Take 1 [...] Take 1 Tablet by mouth every evening. 11/20/2021 Active Qvar RediHaler 80 MCG/ACT Inhalation Aerosol Breath Activated (Beclomethasone Diprop HFA)Indications:Dyspn ea and respiratory abnormality Inhale 2 Puffs by mouth in the morning and 2 Puffs before bedtime. 3 Each 3 03/17/2022 Active guaiFENesin ER 600 MG Oral Tablet Extended Release 12 Hour Take 1 Tablet by mouth in the morning. Active hydroCHLOROthiazide 25 MG Oral Tablet (Hydrodiuril)Indicati ons:PAF (paroxysmal atrial fibrillation) (HCC) Take 1 Tablet by mouth in the morning. 90 Tablet 3 06/15/2022 Active Additional Information Patient taking differently: 12.5 mgOral Daily(AM), Reported on 11/05/2022 Clobetasol Propionate 0.05 % External Cream (Temovate) Apply topically to affected area daily. To affected area 15 g 1 08/25/2022 Active Magnesium 400 MG Oral Tablet Take by mouth. At bedtime Active busPIRone HCl 15 MG Oral Tablet (Buspar)Indications:S tress Oneh long term to one whole tab by mouth up to three times a day as needed for nerves 20 Tablet 04/08/2023 Active Additional Information Patient taking differently: One half to one whole tab by mouth up to three times a day as needed for nerves, Reported on 12/14/2023 dilTIAZem HCl ER Coated Beads 120 MG Oral Capsule Extended Release 24 Hour (Cardizem CD)Indications:PAF (paroxysmal atrial fibrillation) (HCC) Take 1 Capsule by mouth daily. In the evening. 90 Capsule 3 04/08/2023 Active Atorvastatin Calcium 40 MG Oral Tablet (Lipitor)Indications: Hyperlipidemia with target LDL less than 100 Take 1 Tablet by mouth in the morning. 100 Tablet 3 04/08/2023 Active Meclizine HCl 25 MG Oral Tablet (Antivert) Take 1-2 tablets by mouth 3 times a day as needed for dizziness. 540 Tablet 1 11/23/2023 Active Albuterol Sulfate HFA 108 (90 Base) MCG/ACT Inhalation Aerosol Solution Inhale 2 Puffs by mouth every 6 hours as needed (stomach irritation). 54 g 1 11/28/2023 Active Omeprazole 40 MG Oral Capsule Delayed Release (PriLOSEC) Take 1 Capsule by mouth in the morning. 90 Capsule 1 11/28/2023 Active Ondansetron HCl 4 MG Oral Tablet (Zofran)Indications:N ausea Take 1 Tablet by mouth every 8 hours as needed for Nausea. 20 Tablet 12/07/2023 Active Gabapentin 100 MG Oral Capsule (Neurontin)Indication s:Lumbar radicular pain Take 2 Capsules by mouth in the morning and 2 Capsules at noon and 2 Capsules before bedtime. 540 Capsule 12/27/2023 Active Sodium Hyaluronate 60 MG/3ML Intra-articular Prefilled Syringe (Durolane) Inject contents of prefilled syringe into the right knee one time. 3 mL 01/02/2024 Active Olopatadine HCl 0.6 % Nasal SolutionIndications:P hlegm in throat,Vertigo Administer 2 Sprays into nostril in the morning and 2 Sprays before bedtime. 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 90 Tablet 1 02/10/2024 Active Lisinopril 10 MG Oral Tablet (Prinivil)Indications :Essential hypertension with goal blood pressure less than 140/90 Take 2 Tablets by mouth in the morning. 180 Tablet 3 02/20/2024 Active Azithromycin 250 MG Oral Tablet (Zithromax Z-Hal)Indications:Acu te recurrent maxillary sinusitis Take two tablets by mouth on first day, then 1 tablet daily until gone 6 Tablet 02/24/2024 Active Montelukast Sodium 10 MG Oral Tablet (Singulair)Indication s:RUDOLPH (dyspnea on exertion),Phlegm in throat TAKE 1 TABLET BY MOUTH EVERYDAY AT BEDTIME 90 Tablet 1 03/01/2024 Active Hospital, Clinic, or Other Facility Administered Medication Ordered Dose Route Frequency Start Date End Date Status Vitamin B-12 (Cyanocobalamin) inj 1,000 mcgIndications:B12 deficiency 1000 mcg IM [id number] 01/27/2024 12/28/2024 Active documented as of this encounter (statuses as of 03/07/2024) Active Problems Problem Noted Date Diagnosed Date Chronic obstructive pulmonary disease 01/27/2024 Old [place] [...] as of this encounter (statuses as of 03/07/2024) Resolved Problems Problem Noted Date Diagnosed Date [...] as of this encounter (statuses as of 03/07/2024) Immunizations Name Administration Dates Next Due Pneumococcal Conjugate Vacci ne, 20-valent ([id number]) 04/08/2023 Pneumococcal Polysaccharide PPV23 (Pneumovax) 03/20/2016 Seasonal [...] Care Team (Late st Contact Info) Description 03/08/2024 11:00 AM EDT Office Visit [facility] [address] [place] [address] Rahel Ortiz PA-C [address] [place] [address] 03/20/2024 11:45 AM EST Office Visit Gynecology/Obstetrics [facility] [address] [place] [address] Jefe Lagunas MD [address] [place] [address] 03/26/2024 11:30 AM EST Office Visit Otolaryngology [facility] [address] [place] [address] Melvin Horta PA-C [address] [place] [address] 04/25/2024 1:40 PM EST Office Visit [facility] 16 [place] [address] Jamie Mckeon MD 16 [place] [address] 05/17/2024 1:00 PM EST Office Visit Allergy/Immunology [facility] [address] [facility] [place] [address] Carlo Arambula MD [address] [facility] [place] [address] 08/01/2024 11:15 AM EDT Office Visit Orthopaedics [facility] 132 [place] [address] Salinas Levine PA-C [address] [facility] [place] [address] 09/17/2024 11:30 AM EDT Office Visit Cardiology, [facility] [address] [place] [address] Rashaun Felix MD [address] [facility] [address] Scheduled Procedures Name Priority Associated Diagnoses Date/Ti [...] ASSESSMENT COMPLETED IN PAST YEAR FOR COPD 01/26/2025 01/27/2024 Albumin/Creatinine Ratio 03/17/2025 03/17/2022 Lipid Panel 01/15/2028 [...] this encounter Medical Devices Implanted Type Area Ore Washer Device Identifier Shelf Expiration Date Model / Serial / Lot Lens Intraoc 11.5 - [id number] - [id number] Implanted:Qty: 1 on 12/18/2019 by Azam Boo MD at OR [facility] Left: Eye BAUSCH & LOMB 10/06/2021 [id number] / [id number] / Lens Intraoc 11.5 - [id number] - [id number] Implanted:Qty: 1 on 12/31/2019 by Azam Boo MD at OR [facility] Right: Eye BAUSCH & LOMB 07/06/2024 [id number] / [id number] / [id number] documented as of this encounter Procedures Procedure Name Priority Date/Time Associated Diagnosis Comments PATHOLOGY SCANNED RESULT 03/02/2024 documented in this encounter Results * PATHOLOGY SCANNED RESULT (03/02/2024) 03/02/2024 Jefe Lagunas MD PATHOLOGY documented in this encounter Advance Directives * Full Code (Latest Code Status on File) Date Activated Date Inactivated Comments 11/18/2016 1:02 PM 11/19/2016 3:42 PM This order r eflects the patients wishes and were consensually agreed upon. Care Teams Loft Worker Apprentice Relationship Specialty Start Date End Date Rosy Cummins PA-C [address] [facility] [place] [address] PCP - General Physician Orthodontist 02/17/21 documented as of this encounter
--- OUTSIDE RECORDS SUMMARY | 2024-06-29 11:06 | External Medical Summary ---
Author Name Unknown Address Unknown Organization K01:[facility] [place] - [address] [place] [address] Laboratory Report Ordering Provider Test Date Status INDERJIT KRAMER 03/14/2024 14:51:39 Final <10,000 colonies/ml mixed no rmal ce Observation Date Value Abnormality Reference (Units) Status Bacteria identified in Specimen by Culture 03/14/2024 14:51:39 [id number]^BETA STREPTOCOCCUS NOT GROUP A OR GROUP B Abnormal Final 10,000 to 100,000 colonies/m L Beta Streptococcus not group A or group B
Test: Culture, Urine, Quantitative
Specimen Source: Urine, Clean Catch
Specimen Type: Urine
Specimen Date: 03/14/2024 1451
Result Date: 03/16/2024 1349
Result Status: Final result
Abnormal: Yes
Resulting Lab: [facility] [place]
[address]
[place] [address]

CULTURE

10,000 to 100,000 colonies/mL Beta Streptococcus not group A or group B
(Abnormal)

<10,000 colonies/ml mixed normal ce

null Performing Location [facility] [place] - [address] [facility] [address]
--- OUTSIDE RECORDS SUMMARY | 2024-06-29 11:06 | External Medical Summary | Summary of Care ---
Author Name Unknown Organization [facility] Address [address] [facility] [place] [address] Phone [phone] Care Team Providers Care Advisory Services Associate Name Role Phone Rosy Cummins PA-C Primary Care Provider [phone] [phone] Reason for Visit * Reason Onset Date Comments Advice 03/07/2024 Encounter Details Date Type Department Care Team (Late st Contact Info) Description 03/07/2024 Telephone Gynecology/Obstetrics [facility] [address] [place] [id number] Jefe Lagunas MD [address] [place] [id number] Advice Allergies Active Allergy Reactions Criticality Noted [...] 15 MG Oral Tablet (Buspar)Indications:S tress Oneh pili to one whole tab by [...] 2 Capsules before bedtime. 540 Capsule 12/27/2023 4 Active Sodium Hyaluronate 60 MG/3ML Intra-articular Prefilled [...] AT BEDTIME 90 Tablet 1 03/01/2024 Active Fluconazole 150 MG Oral Tablet (Diflucan)Indications :Candidal vulvovaginitis Take 1 Tablet by mouth once for 1 dose. 1 Tablet 03/07/2024 4 Active Hospital, Clinic, or Other Facility Administered Medication Ordered Dose Route Frequency Start Date End Date Status Vitamin B-12 (Cyanocobalamin) inj 1,000 mcgIndications:B12 deficiency 1000 mcg IM [id number] 01/27/2024 12/28/2024 Active documented as of this encounter (statuses as of 03/07/2024) Active Problems Problem Noted Date Diagnosed Date Chronic obstructive pulmonary disease 01/27/2024 Old [place] [...] Next Due Pneumococcal Conjugate Vacci ne, 20-valent ([id number]) 04/08/2023 Pneumococcal Polysaccharide PPV23 (Pneumovax) 03/20/2016 Seasonal [...] encounter Miscellaneous Notes * Telephone Encounter - Kristyn Gamboa OSA - 03/07/2024 1:49 PM EDT Patient is having itching and clear discharge since her procedure on 03/02. She is asking if she should take Monistat or if a medication can be prescribed. She is asking if she can be called at [phone]. She would like to have the script sent to [address] Thank you documented in this encounter Plan of Treatment Upcoming Encounters Date Type Department Care Team (Late st Contact Info) Description 03/12/2024 10:45 AM EST Office Visit Gynecology/Obstetrics [facility] [address] [place] [address] Jefe Lagunas MD [address] [place] [address] 03/20/2024 11:45 AM EST Office Visit Gynecology/Obstetrics [facility] [address] [place] [address] Jefe Lagunas MD [address] [place] [address] 03/26/2024 11:30 AM EST Office Visit Otolaryngology [facility] 132 [place] [address] Melvin Horta PA-C 132 [facility] [place] [address] 05/17/2024 1:00 PM EST Office Visit Allergy/Immunology [facility] [address] [place] [address] Carlo Arambula MD 200 [place] [address] 06/04/2024 11:30 AM EST [facility] 16 [place] [address] Trino Mills CRNP 16 [place] [address] 08/01/2024 11:15 AM EDT Office Visit Orthopaedics [facility] [address] [place] [place] [address] Salinas Levine PA-C [address] [facility] [place] [address] 09/17/2024 11:30 AM EDT Office Visit Cardiology, [facility] [address] [place] [address] Rashaun Felix MD [address] [place] [address] Scheduled Procedures Name Priority Associated Diagnoses Date/Ti [...] this encounter Medical Devices Implanted Type Area Hotel Custodian Device Identifier Shelf Expiration Date Model / Serial / Lot Lens Intraoc 11.5 - [id number] - [id number] Implanted:Qty: 1 on 12/18/2019 by Azam Boo MD at OR [facility] Left: Eye BAUSCH & LOMB 10/06/2021 [id number] / [id number] / Lens Intraoc 11.5 - [id number] - [id number] Implanted:Qty: 1 on 12/31/2019 by Azam Boo MD at OR [facility] Right: Eye BAUSCH & LOMB 07/06/2024 [id number] / [id number] / [id number] documented as of this encounter Visit Diagnoses Diagnosis Candidal vulvovaginitis- Primary Candidiasis of vulva and vagina documented in this encounter Advance Directives * Full Code (Latest Code Status on File) Date Activated Date Inactivated Comments 11/18/2016 1:02 PM 11/19/2016 3:42 PM This order r eflects the patients wishes and were consensually agreed upon. Care Teams Advisory Services Associate Relationship Specialty Start Date End Date Rosy Cummins PA-C [address] [facility] [place] [address] PCP - General Physician Puddler Helper 02/17/21 documented as of this encounter
--- OUTSIDE RECORDS SUMMARY | 2024-06-29 11:06 | External Medical Summary | Summary of Care ---
Author Name Unknown Organization [facility] Address [address] [place] [facility] [place] [place] [address] Phone [phone] Care Team Providers Care Bookie Name Role Phone Rosy Cummins PA-C Primary Care Provider [phone] [phone] Reason for Visit * Reason Comments Acute [...] Description 03/14/2024 10:20 AM EST Office Visit [facility] [address] [place] [address] Rosy Cummins PA-C [address] [place], [place] [phone] Dysuria*; Acute cystitis without hematuria Allergies Active [...] 15 MG Oral Tablet (Buspar)Indications: Stress Oneh residential to one whole tab by [...] inj 1,000 mcgIndications:B12 deficiency 1000 mcg IM [id number] 01/27/2024 12/28/2024 Active documented as of this encounter (statuses as of 03/14/2024) Active Problems Problem Noted Date Diagnosed Date Chronic obstructive pulmonary disease 01/27/2024 Old [place] (myocardial infarction) 01/27/2024 Prediabetes 12/19/2023 Overview: Per [...] 03/14/2024) Immunizations Name Administration Dates Next Due Pneumococcal Conjugate Vacci ne, 20-valent ([id number]) 04/08/2023 Pneumococcal Polysaccharide PPV23 (Pneumovax) 03/20/2016 Seasonal [...] documented in this encounter Progress Notes * Rosy Cummins PA-C - 03/14/2024 10:31 [...] Visit Gynecology/Obstetrics [facility] [address] [place] [address] Jefe Lagunas MD [address] [place] [address] 03/20/2024 11:45 AM EST Office Visit Gynecology/Obstetrics [facility] [address] [facility] [place] [address] Jefe Lagunas MD [address] [place] [address] 03/23/2024 9:00 AM EST Office Visit Orthopaedics [facility] 132 [facility] [place] [address] Salinas Levine PA-C [address] [place] [place] [address] 03/26/2024 11:30 AM EST Office Visit Otolaryngology [facility] 132 [facility] [place] [address] Melvin Horta PA-C [address] [place] [address] 05/17/2024 1:00 PM EST Office Visit Allergy/Immunology [facility] 200 [facility] [address] Carlo Arambula MD 200 [place] [address] 06/04/2024 11:30 AM EST [facility] 16 [place] [address] Trino Mills CRNP 16 [place] [address] 08/01/2024 11:15 AM EDT Office Visit [facility] [address] [place] [address] Salinas Levine PA-C [address] [facility] [place] [address] 09/17/2024 11:30 AM EDT Office Visit Cardiology, [facility] [address] [place] [address] Rashaun Felix MD [address] [place] [address] Scheduled Orders Name Type Priority Associated Diagnoses [...] this encounter Medical Devices Implanted Type Area Reports Developer Device Identifier Shelf Expiration Date Model / Serial / Lot Lens Intraoc 11.5 - [id number] - [id number] Implanted:Qty: 1 on 12/18/2019 by Azam Boo MD at OR [facility] Left: Eye BAUSCH & LOMB 10/06/2021 [id number] / [id number] / Lens Intraoc 11.5 - [id number] - [id number] Implanted:Qty: 1 on 12/31/2019 by Azam Boo MD at OR [facility] Right: Eye BAUSCH & LOMB 07/06/2024 [id number] / [id number] / [id number] documented as of this encounter Procedures Procedure Name Priority Date/Time Associated Diagnosis Comments URINALYSIS, POINT OF CARE (ENTER/EDIT) Routine 03/14/2024 Dysuria documented in this encounter Results * (ABNORMAL) URINALYSIS, POINT OF CARE (ENTER/EDIT) (03/14/2024) Color, Urine Light Yellow Yellow or Light Yellow Clarity, Urine Slightly Cloudy Clear Glucose, Urine Negative Negative mg/dL Bilirubin, Urine Negative Negative Ketone, Urine Negative Negative mg/dL Specific [place], Urine 1.030 1.003 - 1.030 Blood, Urine [...] hematuria Acute cystitis documented in this encounter Advance Directives * Full Code (Latest Code Status on File) Date Activated Date Inactivated Comments 11/18/2016 1:02 PM 11/19/2016 3:42 PM This order r eflects the patients wishes and were consensually agreed upon. Care Teams Bookie Relationship Specialty Start Date End Date Rosy Cummins PA-C [address] [place] [facility] [place] [address] PCP - General Physician Water Ski Assembler 02/17/21 documented as of this encounter
--- OUTSIDE RECORDS SUMMARY | 2024-06-29 11:06 | External Medical Summary | Summary of Care ---
Author Name Unknown Organization [facility] Address [address] [place] [facility] [place] [address] Phone [phone] Care Team Providers Care Lumber Straightener Name Role Phone Rosy Cummins PA-C Primary Care Provider [phone] Reason for Visit * Reason Comments Acute [...] Description 03/14/2024 10:20 AM EST Office Visit [facility] [address] [place] [address] Rosy Cummins PA-C [address] [place], [place] [phone] Dysuria*; Acute cystitis without hematuria Allergies Active [...] inj 1,000 mcgIndications:B12 deficiency 1000 mcg IM [id number] 01/27/2024 12/28/2024 Active documented as of this [...] PPD 10/31/2001,03/24/1999,01/19/1994 Pneumococcal Conjugate Vacci ne, 20-valent ([id number]) 04/08/2023 Pneumococcal Polysaccharide PPV23 (Pneumovax) 03/20/2016,02/24/2000 Seasonal [...] 03/19/2024 11:00 AM EST Office Visit Gynecology/Obstetrics [facility] [address] [place] [address] Jefe Lagunas MD [address] [place] [address] 03/20/2024 11:45 AM EST Office Visit Gynecology/Obstetrics [facility] [address] [place] [address] Jefe Lagunas MD [address] [place] [address] 03/23/2024 9:00 AM EST Office Visit Orthopaedics [facility] [address] [place] [address] Salinas Levine PA-C [address] [place] [address] 03/26/2024 11:30 AM EST Office Visit Otolaryngology [facility] [address] [place] [address] Melvin Horta PA-C [address] [place] [address] 05/17/2024 1:00 PM EST Office Visit Allergy/Immunology [facility] [address] [place] [address] Carlo Arambula MD 200 [facility] [place] [address] 06/04/2024 11:30 AM EST [facility] [address] [place] [address] Trino Mills CRNP 16 [place] [address] 08/01/2024 11:15 AM EDT Office Visit Orthopaedics [facility] [address] [facility] [place] [address] Salinas Levine PA-C [address] [place] [address] 09/17/2024 11:30 AM EDT Office Visit Cardiology, [facility] [address] [place] [address] Rashaun Felix MD [address] [place] [address] Scheduled Orders Name Type Priority Associated Diagnoses [...] this encounter Medical Devices Implanted Type Area Rn First Assist Device Identifier Shelf Expiration Date Model / Serial / Lot Lens Intraoc 11.5 - [id number] - [id number] Implanted:Qty: 1 on 12/18/2019 by Azam Boo MD at OR [facility] Left: Eye BAUSCH & LOMB 10/06/2021 [id number] / [id number] / Lens Intraoc 11.5 - [id number] - [id number] Implanted:Qty: 1 on 12/31/2019 by Azam Boo MD at OR [facility] Right: Eye BAUSCH & LOMB 07/06/2024 [id number] / [id number] / [id number] documented as of this encounter Procedures Procedure Name Priority Date/Time Associated Diagnosis Comments URINALYSIS, POINT OF CARE (ENTER/EDIT) Routine 03/14/2024 Dysuria documented in this encounter Results * (ABNORMAL) URINALYSIS, POINT OF CARE (ENTER/EDIT) (03/14/2024) Color, Urine Light Yellow Yellow or Light Yellow Clarity, Urine Slightly Cloudy Clear Glucose, Urine Negative Negative mg/dL Bilirubin, Urine Negative Negative Ketone, Urine Negative Negative mg/dL Specific [place], Urine 1.030 1.003 - 1.030 Blood, Urine [...] (Cyanocobalamin) inj 1,000 mcg 1,000 mcg, Intramuscular, [id number], First dose on Tue01/27/24 at 1115, Last [...] and were consensually agreed upon. Care Teams Lumber Straightener Relationship Specialty Start Date End Date Rosy Cummins PA-C [address] [place] [address] PCP - General Physician Coffee Maker 02/17/21 documented as of this encounter
--- OUTSIDE RECORDS SUMMARY | 2024-06-29 11:06 | External Medical Summary | Summary of Care ---
Author Name Unknown Organization [facility] Address [address] [facility] [place] [address] Phone [phone] Care Team Providers Care Mathematics Professor Name Role Phone Rosy Cummins PA-C Primary Care Provider [phone] [phone] Encounter Details Date Type Department Care Team (Late st Contact Info) Description 03/02/2024 Orders Only Gynecology/Obstetrics [facility] [address] [place] [address] Jefe Lagunas MD [address] [place] [address] Allergies Active Allergy Reactions Criticality Noted Date Comments Azelastine Nausea/vomiting 12/29/2023 Cetirizine Other (Please comment) 11/22/2021 headache Latex Rash 10/14/2021 Metoprolol Unknown 10/14/2021 Sulfa Antibiotics 08/13/2002 bactrim only-itching afater 1 week Tartaric Acid Unknown 10/14/2021 Valacyclovir 11/23/2022 Renal calculi documented as of this encounter (statuses as of 03/02/2024) Medications Medication Sig Dispensed Refills Start Date [...] 15 MG Oral Tablet (Buspar)Indications:S tress Oneh nursing home to one whole tab by mouth [...] inj 1,000 mcgIndications:B12 deficiency 1000 mcg IM [id number] 01/27/2024 12/28/2024 Active documented as of this encounter (statuses as of 03/02/2024) Active Problems Problem Noted Date Diagnosed Date [...] as of this encounter (statuses as of 03/02/2024) Resolved Problems Problem Noted Date Diagnosed Date [...] as of this encounter (statuses as of 03/02/2024) Immunizations Name Administration Dates Next Due Pneumococcal Conjugate Vacci ne, 20-valent ([id number]) 04/08/2023 Pneumococcal Polysaccharide PPV23 (Pneumovax) 03/20/2016 Seasonal [...] [facility] [address] [place] [address] Rahel Ortiz PA-C [address] [place] [address] 03/21/2024 11:30 AM EST Office Visit Gynecology/Obstetrics [facility] [address] [place] [address] Jefe Lagunas MD [address] [place] [address] 03/26/2024 11:30 AM EST Office Visit Otolaryngology [facility] [address] [place] [address] Melvin Horta PA-C [address] [facility] [place] [address] 04/25/2024 1:40 PM EST Office Visit [facility] [address] [place] [address] Jamie Mckeon MD 16 [place] [address] 05/17/2024 1:00 PM EST Office Visit Allergy/Immunology [facility] [address] [place] [address] Carlo Arambula MD [address] [facility] [place] [address] 08/01/2024 11:15 AM EDT Office Visit Orthopaedics [facility] [address] [facility] [place] [address] Salinas Levine PA-C [address] [facility] [place] [address] 09/17/2024 11:30 AM EDT Office Visit Cardiology, [facility] [address] [place] [address] Rashaun Felix MD [address] [facility] [place] [address] Scheduled Procedures Name Priority Associated Diagnoses Date/Ti [...] this encounter Medical Devices Implanted Type Area Computer Scientist Device Identifier Shelf Expiration Date Model / Serial / Lot Lens Intraoc 11.5 - [id number] - [id number] Implanted:Qty: 1 on 12/18/2019 by Azam Boo MD at [facility] Left: Eye [employer] 10/06/2021 [id number] / [id number] / Lens Intraoc 11.5 - [id number] - [id number] Implanted:Qty: 1 on 12/31/2019 by Azam Boo MD at OR [facility] Right: Eye [employer] 07/06/2024 [id number] / [id number] / [id number] documented as of this encounter Procedures Procedure Name Priority Date/Time Associated Diagnosis Comments POTASSIUM Routine 03/02/2024 documented in this encounter Results * POTASSIUM (03/02/2024) POTASSIUM 3.8 3.5 - 5.1 MMOL/L OUTSIDE LAB (SEE SCANNED REPORT) Blood Venous blood specimen / Unknown 03/02/2024 Jefe Laguans MD LAB BLOOD ORDERABLES OUTSIDE LAB (SEE SCANNED REPORT) documented in this encounter Advance Directives * Full Code (Latest Code Status on File) Date Activated Date Inactivated Comments 11/18/2016 1:02 PM 11/19/2016 3:42 PM This order r eflects the patients wishes and were consensually agreed upon. Care Teams Mathematics Professor Relationship Specialty Start Date End Date Rosy Cummins PA-C [address] [facility] [place] [address] PCP - General Physician Global Lead 02/17/21 documented as of this encounter
--- OUTSIDE RECORDS SUMMARY | 2024-06-29 11:06 | External Medical Summary | Summary of Care ---
Author Name Unknown Organization [facility] Address [address] [facility] [place] [address] Phone [phone] Care Team Providers Care Desizing Machine Back Tender Name Role Phone Rosy Cummins PA-C Primary Care Provider [phone] [phone] Encounter Details Date Type Department Care Team (Late st Contact Info) Description 03/12/2024 Telephone Gynecology/Obstetrics [facility] [address] [place] [address] Jefe Lagunas MD [address] [place] [address] Allergies Active Allergy Reactions Criticality Noted Date Comments Azelastine Nausea/vomiting 12/29/2023 Cetirizine Other (Please comment) 11/22/2021 headache Latex Rash 10/14/2021 Metoprolol Unknown 10/14/2021 Sulfa Antibiotics 08/13/2002 bactrim only-itching afater 1 week Tartaric Acid Unknown 10/14/2021 Valacyclovir 11/23/2022 Renal calculi documented as of this encounter (statuses as of 03/12/2024) Medications Medication Sig Dispensed Refills Start Date [...] 15 MG Oral Tablet (Buspar)Indications:S tress Oneh assisted to one whole tab by [...] inj 1,000 mcgIndications:B12 deficiency 1000 mcg IM [id number] 01/27/2024 12/28/2024 Active documented as of this encounter (statuses as of 03/12/2024) Active Problems Problem Noted Date Diagnosed Date Chronic obstructive pulmonary disease 01/27/2024 Old NE [...] as of this encounter (statuses as of 03/12/2024) Resolved Problems Problem Noted Date Diagnosed Date [...] as of this encounter (statuses as of 03/12/2024) Immunizations Name Administration Dates Next Due Pneumococcal Conjugate Vacci ne, 20-valent ([id number]) 04/08/2023 Pneumococcal Polysaccharide PPV23 (Pneumovax) 03/20/2016 Seasonal [...] encounter Miscellaneous Notes * Telephone Encounter - Fe Reese RN - 03/12/2024 8:56 AM EST Pt was scheduled today for discussion of test results but she has a flat tire. I offered to come atany time today but she can not change her tire and does not have a ride otherwise. Discussed with Dr. Lagunas. He said she can be scheduled when she can make it. Offered appt for but pt declines. Has to work. Offered . Offered to come at 830 but that is too early in the day an then she has to work in the pm. Offered appt for Monday 03/19 and she accepts. Pt agreeable. documented in this encounter Plan of Treatment Upcoming Encounters Date Type Department Care Team (Late st Contact Info) Description 03/19/2024 11:00 AM EST Office Visit Gynecology/Obstetrics [facility] [address] [place] [address] Jefe Lagunas MD [address] [place] [address] 03/20/2024 11:45 AM EST Office Visit Gynecology/Obstetrics [facility] [address] [facility] [place] [address] Jefe Lagunas MD [address] [facility] [place] [address] 03/26/2024 11:30 AM EST Office Visit Otolaryngology [facility] [address] [facility] [place] [address] Melvin Horta PA-C [address] [facility] [place] [address] 05/17/2024 1:00 PM EST Office Visit Allergy/Immunology [facility] [address] [place] [address] Carlo Arambula MD [address] [place] [address] 06/04/2024 11:30 AM EST [facility] [address] [place] [address] Trino Mills CRNP 16 [place] [address] 08/01/2024 11:15 AM EDT Office Visit Orthopaedics [facility] [address] [facility] [place] [address] Salinas Levine PA-C [address] [place] [address] 09/17/2024 11:30 AM EDT Office Visit Cardiology, [facility] [address] [place] [address] Rashaun Felix MD [address] [place] [address] Scheduled Procedures Name Priority Associated Diagnoses Date/Ti [...] this encounter Medical Devices Implanted Type Area Business Representative Device Identifier Shelf Expiration Date Model / Serial / Lot Lens Intraoc 11.5 - [id number] - [id number] Implanted:Qty: 1 on 12/18/2019 by Azam Boo MD at OR [facility] Left: Eye [employer] 10/06/2021 [id number] / [id number] / Lens Intraoc 11.5 - [id number] - [id number] Implanted:Qty: 1 on 12/31/2019 by Azam Boo MD at OR [facility] Right: Eye [employer] 07/06/2024 [id number] / [id number] / [id number] documented as of this encounter Advance Directives * Full Code (Latest Code Status on File) Date Activated Date Inactivated Comments 11/18/2016 1:02 PM 11/19/2016 3:42 PM This order r eflects the patients wishes and were consensually agreed upon. Care Teams Desizing Machine Back Tender Relationship Specialty Start Date End Date Rosy Cummins PA-C [address] [facility] [place] [address] PCP - General Physician Treatment Supervisor 02/17/21 documented as of this encounter
[2024-06-29] MEDS: OPTIRAY 320 100ml IV ONE (11:17)
--- NOTE | 2024-06-29 11:40 | CT Scan Report ---
ABDOMEN AND PELVIS CT WITH IV CONTRAST CT DOSE: 1507.39 mGy.cm HISTORY: Bilateral lower abdominal pain and vomiting TECHNIQUE: Multiaxial CT images of the abdomen and pelvis were performed following the IV administrat ion of 94 cc of Optiray, sagittal and coronal reconstructions were done. A dose lowering technique w as utilized adhering to the principles of ALARA. COMPARISON STUDY: 06/21/2023 FINDINGS: The lung bases demonstrate a stable 3.5 cm descending thoracic aortic aneurysm. Patchy biba silar airspace opacities are most likely dependent or discoid atelectasis. A small hiatal hernia is p resent. The abdominal images demonstrate to hepatic steatosis. The gallbladder is absent. The bile ducts are not dilated. There are no pancreatic, splenic, or adrenal lesions identified. Small bilateral renal c ysts are present. There is no hydronephrosis. There is no aortic aneurysm or periaortic adenopathy. The bowel gas pattern is nonspecific. There is no evidence of free air or obstruction. There is no ev idence of diverticulitis or colitis. There is a fat-containing ventral hernia just above the umbilicu s which is increased in size from 3 to 4 cm. In the pelvis, the appendix is normal. There is no fluid in the cul-de-sac. Uterus is absent. The mason pacified urinary bladder is unremarkable. IMPRESSION: No acute process is identified in the abdomen and pelvis. Chronic findings include a 3.5 cm descending thoracic aortic aneurysm and a fat-containing ventral hernia just above the umbilicus. This hernia has increased from 3 to 4 cm since the prior study. ACT 112: Negative or not required by law. The above report was generated using voice recognition software. It may contain grammatical, syntax o r spelling errors. Electronically signed by: Britt Streeter M.D. 06/29/2024 11:38 AM
[2024-06-29] MEDS: SODIUM CHLORIDE 0.9% 500 ML IV ONE (12:34)
[2024-06-29] MEDS: LABETALOL HCL IV 5 MG/ML 20ML IV STA (12:34)
[2024-06-29] MEDS: OPTIRAY 320 125ml IV ONE (12:44)
--- NOTE | 2024-06-29 13:16 | CT Scan Report ---
CT angio abdomen pelvis w con CLINICAL HISTORY: TAA, ab/chest pain COMPARISON STUDY: CT of the abdomen and pelvis same date TECHNIQUE: Following the IV administration of 120 cc of Optiray, CT angiogram of the abdomen and pelv is was performed from the lung bases the proximal femora. Images are reviewed in the axial, sagittal, and coronal planes. 3-D MIPS images are created and assessed. All measurements were obtained accordi ng to NASCET criteria. IV contrast was administered without complication. A dose lowering technique was utilized adhering to the principles of ALARA. CT DOSE: 2653.5 mGy.cm FINDINGS: There is no evidence of abdominal aortic aneurysm or dissection. The major aortic branches are patent. While there are calcified plaques at the origins of the celiac axis, SMA, and renal arter ies, there is no significant stenosis appreciated. The SERGO is patent. The iliac arteries are tortuous with no evidence of aneurysm or dissection. Soft tissue abdominal findings were previously described in the abdomen and pelvic CT on the same date IMPRESSION: No evidence of aneurysm, significant stenosis, or occlusive disease involving the abdomin al aorta and its branches. ACT 112: Negative or not required by law. The above report was generated using voice recognition software. It may contain grammatical, syntax o r spelling errors. Electronically signed by: Britt Streeter M.D. 06/29/2024 1:14 PM
--- NOTE | 2024-06-29 13:22 | CT Scan Report ---
CT ANGIOGRAPHY OF THE CHEST DISSECTION PROTOCOL CLINICAL HISTORY: Chest pain. Back pain. Evaluate for dissection. COMPARISON STUDY: Chest CT March 26, 2022. TECHNIQUE: Before and following the IV administration of 120 mL of Optiray, helical axial images of t he chest were obtained. Maximal intensity projections and sagittal and coronal reformats were viewed on an independent 3D workstation. IV contrast was administered without complication. Automated exp osure control was utilized for the study. A dose lowering technique was utilized adhering to the [facility] of ARSALAN. FINDINGS: No intramural hematoma or thoracic aortic dissection is present. Caliber of the ascending aorta Kathy limits of normal, measuring 3.8 cm. There is focal aneurysmal dilatation of the mid d escending thoracic aorta measuring 3.6 cm. This has slightly increased since CT of June 21, 2023 when it measured 3.4 cm. The heart is moderately enlarged. There is no pericardial effusion. There ar e no pulmonary emboli. No thoracic lymphadenopathy. No pneumothorax or pleural effusion. No fractures within the bony thorax. Scattered alveolar opacities within the bilateral lower lobes are present. IMPRESSION: 1. No thoracic aortic dissection. 2. Aneurysmal dilatation of the mid descending thoracic aorta measuring 3.6 cm, slightly increased si nce CT of June 21, 2023. 3. Mild alveolar opacities within the lower lobes suggestive of an infectious process. 4. Cardiomegaly. ACT 112: Negative or not required by law. Electronically signed by: Magnus Sunshine M.D. 06/29/2024 1:21 PM
[2024-06-29] MEDS: cefTRIAXone SODIUM 2,000 MG/50 ML BAG IV STA (15:40)
[2024-06-29] MEDS: oxyCODONE HCL IR 5 MG TAB (IMMEDIATE RELEASE) PO STA (15:40)
[2024-06-29] MEDS: ONDANSETRON INJ 2 MG/ML 2 ML VIAL IV STA (15:40)
[2024-06-29] MEDS ORDERED: ASPIRIN CHEW 324 MG PO STA (17:35)
--- NOTE | 2024-06-29 18:12 | Electrocardiogram Report ---
Test Reason : Blood Pressure : */* mmHG Vent. Rate : 79 BPM Atrial Rate : 79 BPM P-R Int : 156 ms QRS Dur : 88 ms QT Int : 368 ms P-R-T Axes : 17 7 68 degrees QTcB Int : 421 ms Normal sinus rhythm Normal ECG When compared with ECG of 21-Jun-2023 11:35, No significant change was found Confirmed by Elbert Payne ([id number]) on 06/29/2024 6:12:22 PM Referred By: REFERRED SELF Confirmed By: Elbert Payne
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
[2024-06-29] MEDS ORDERED: NITROGLYCERIN SL 0.4 MG/TAB TAB SL PRN (20:31)
[2024-06-29] MEDS ORDERED: MoRPHine SULFATE 4 MG/ML 1 ML CARP\\VIAL IV PRN (20:32)
[2024-06-29] MEDS: dilTIAZem HCL 120 MG CAPCR PO STA (20:37)
[2024-06-29 20:45] LABS: Partial Thromboplastin Time 28 Seconds (21-31)
[2024-06-29 20:55] LABS: Troponin I High Sensitivity 44.4 pg/ml (0-14)
[2024-06-29] MEDS: rOPINIRole HCL 0.25 MG TABLET PO PRN (21:20)
[2024-06-29] MEDS: GABAPENTIN 100 MG CAP PO SCH (21:20)
[2024-06-29 21:36] LABS: Adenovirus PCR Not Detected (NotDetected); Bordetella parapertussis PCR Not Detected (NotDetected); Bordetella pertussis PCR Not Detected (NotDetected); Chlamydia pneumoniae PCR Not Detected (NotDetected); Coronavirus 229E PCR Not Detected (NotDetected); Coronavirus CoV-2 (COVID19)PCR Not Detected (NotDetected); Coronavirus HKU1 PCR Not Detected (NotDetected); Coronavirus NL63 PCR Not Detected (NotDetected); Coronavirus OC43PCR Not Detected (NotDetected); Human Metapneumovirus PCR Not Detected (NotDetected); Influenza A PCR Not Detected (NotDetected); Influenza B PCR Not Detected (NotDetected); Mycoplasma pneumoniae PCR Not Detected (NotDetected); Parainfluenza Virus 1 PCR Not Detected (NotDetected); Parainfluenza Virus 2 PCR Not Detected (NotDetected); Parainfluenza Virus 3 PCR Not Detected (NotDetected); Parainfluenza Virus 4 PCR Not Detected (NotDetected); Respiratory Syncytial VirusPCR Not Detected (NotDetected); Rhinovirus/Enterovirus PCR Not Detected (NotDetected)
--- NOTE | 2024-06-29 22:35 | CT Scan Report ---
Exam(s): CT HEAD Without Contrast EXAM: CT Head Without Intravenous Contrast CLINICAL HISTORY: Reason for exam: carl. TECHNIQUE: Axial computed tomography images of the head/brain without intravenous contrast. CTDI is 36.79 mGy and DLP is 547.75 mGy-cm. Automated exposure control was utilized for the study. A dose lowering technique was utilized adhering to the principles of ALARA. COMPARISON: Prior head CT from October 15, 2020. FINDINGS: Brain: Unremarkable. No hemorrhage. No significant white matter disease. No edema. Ventricles: Unremarkable. No ventriculomegaly. Bones/joints: Unremarkable. No acute fracture. Soft tissues: Unremarkable. Sinuses: Unremarkable as visualized. No acute sinusitis. Mastoid air cells: Unremarkable as visualized. No mastoid effusion. IMPRESSION: No evidence of acute intracranial pathology. Electronically signed by: Nara Sutton MD 06/29/24 22:34 PM
[2024-06-29] MEDS ORDERED: DEXTROSE 50% 50 ML SYRINGE IV PRN (23:44)
[2024-06-29] MEDS ORDERED: GLUCOSE 10 TAB/TUBE PO PRN (23:44)
[2024-06-29] MEDS: ACETAMINOPHEN 325 MG TAB PO PRN (23:44)
[2024-06-29] MEDS ORDERED: GLUCAGON FOR INJ 1 MG VIAL SQ PRN (23:44)
[2024-06-29] MEDS ORDERED: CARBOHYDRATES FOR HYPOGLYCEMIA PO PRN (23:44)
[2024-06-29] MEDS ORDERED: GLUCOSE 40% GEL 15 GM TUBE PO PRN (23:44)
[2024-06-29] MEDS: HEPARIN 25000 UNIT/500 ML D5W 25,000 UNITS/500 ML BAG IV SCH (23:45)
[2024-06-29] MEDS: Heparin IV Adult Wt-Based Standard *NO* INITIAL Bolus Protocol IV STA (23:54)
[2024-06-30] MEDS ORDERED: INSULIN ASPART PER UNIT CHARGE SC SCH
[2024-06-30] MEDS: SODIUM CHLORIDE 0.9% 1,000 ML IV ONE (00:59)
[2024-06-30 06:18] LABS: Basophils # (auto) 0.03 K/uL (0.00-0.20); Basophils % (auto) 0.3 %; Eosinophils # (auto) 0.23 K/uL (0.00-0.50); Eosinophils % (auto) 2.5 %; Hematocrit (blood only) 35.6 % (37.0-47.0); Hemoglobin 11.2 g/dl (12.0-16.0); Immature Granulocytes # (auto) 0.06 K/uL (0.01-0.20); Immature Granulocytes % (auto) 0.6 %; Lymphocytes # (auto) 2.55 K/uL (1.20-3.40); Lymphocytes % (auto) 27.4 %; Mean Corpuscular Hemoglobin 27.1 pg (25.0-34.0); Mean Corpuscular Hgb Conc 31.5 g/dL (32.0-36.0); Mean Corpuscular Volume 86.2 fL (80.0-100.0); Mean Platelet Volume 9.6 fL (9.4-12.4); Monocytes # (auto) 0.78 K/uL (0.11-0.59); Monocytes % (auto) 8.4 %; Neutrophils # (auto) 5.66 K/uL (1.40-6.50); Neutrophils % (auto) 60.8 %; Platelet Count 319 K/uL (130-400); RDW Coefficient of Variation 13.8 % (11.5-14.5); RDW Standard Deviation 43.2 fL (36.4-46.3); Red Blood Count 4.13 M/uL (4.20-5.40); White Blood Count 9.31 K/ul (4.8-10.8)
[2024-06-30 06:31] LABS: BUN Creatinine Ratio 30.4 (10-20); Calcium 9.2 mg/dl (8.6-10.3); Chol HDL Ratio 5.4 (0-5); Potassium 4.1 mmol/L (3.5-5.1)
[2024-06-30 06:42] LABS: Troponin I High Sensitivity 145.8 pg/ml (0-14)
[2024-06-30 06:49] LABS: Thyroid Stimulating Hormone 0.948 uIu/ml (0.300-4.500)
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
[2024-06-30 09:13] LABS: Estimated Average Glucose 123 mg/dl; Hemoglobin A1C 5.9 % (4.5-5.6)
[2024-06-30] MEDS: lisinopril 20 MG TAB PO SCH (09:50)
[2024-06-30] MEDS: FERROUS SULFATE 325 MG TAB PO SCH (09:50)
[2024-06-30] MEDS: MULTIVITAMIN TAB PO SCH (09:51)
[2024-06-30] MEDS: PANTOprazole 40 MG TAB PO SCH (09:51)
[2024-06-30] MEDS: ASPIRIN 81 MG ECTAB PO SCH (09:51)
[2024-06-30] MEDS: MONTELUKAST SODIUM 10 MG TABLET PO SCH (09:51)
[2024-06-30] MEDS: ATORVASTATIN 40 MG TAB PO SCH (10:08)
[2024-06-30] MEDS: GABAPENTIN 100 MG CAP PO SCH (11:57)
[2024-06-30 13:36] LABS: ANTI-Xa, UFH(UnfractionatedHep 0.19 IU/ml (0.3-0.7)
--- NOTE | 2024-06-30 13:39 | Hospitalist Progress Note ---
Date of Service June 30, 2024 Assessment & Plan (1) NSTEMI (non-ST elevated myocardial infarction): Plan: NSTEMI H/O Nonocclusive CAD --Chest CTA:No thoracic aortic dissection. Aneurysmal dilatation of the mid descending thoracic aorta measuring 3.6 cm, slightly increased since CT of June 21, 2023. Mild alveolar opacities within the lower lobes suggestive of an infectious process. Cardiomegaly. -- Troponin Level trended up --Normal TSH --Echo pending --HbA1c 5.9 -- Total cholesterol 222, triglycerides 184, LDL 144 -- Started on aspirin 81 mg daily, pravastatin -- Continue IV heparin Appreciate cardiology input Hyperlipidemia H/O atorvastatin intolerance Trial of pravastatin Gastroenteritis --CT ABD: No acute process is identified in the abdomen and pelvis. Chronic findings include a 3.5 cm descending thoracic aortic aneurysm and a fat- containing ventral hernia just above the umbilicus. This hernia has increased from 3 to 4 cm since the prior study. --Stool studies pending -- Advance diet as tolerated Thoracic aortic aneurysm Incidental finding on CT Advised to follow-up as outpatient Morbid obesity BMI 42 Paroxysmal atrial fibrillation S/P ablation, post ablation pericarditis Continue Cardizem GERD Continue PPI RLS On ropinirole as needed Hypertension Continue current medications Monitor COPD Chronic cough No signs of exacerbation Continue home medications EUSEBIA on CPAP Prediabetes HbA1c 5.9 H/O Endometrial cancer S/P surgery DVT Px: Heparin ggt Code Status Full Code Admission and Anticipated Discharge Date Admission Date: June 29, 2024 Subjective Patient is seen and examined at bedside Nausea, vomiting, diarrhea resolved Abdominal pain much improved Denies any chest pain during my encounter today Also denies any dyspnea, dizziness No other complaints Review of Systems Review of Systems: All systems reviewed & are unremarkable except as noted in Subjective Physical Exam Physical Exam: Physical Exam: Vitals signs as noted above General Appearance:Morbidly Obese, no apparent distress Head: normocephalic, Atraumatic Eyes: normal inspection, EOMI Neck: supple, Trachea midline Respiratory/Chest: Normal breath sounds, CTA, No accessory muscle use Cardiovascular: S1, S2, no murmur Abdomen/GI:Soft, mild tender, Bowel sounds present Extremities/Musculoskeletal:normal inspection, no edema Neurologic/Psych:AAOX3, grossly no focal neurological deficits Skin: normal color, warm Results & Data Results & Data Vital Signs (Past 12 Hours) Vital Signs Temp Pulse Resp BP Pulse Ox O2 Del Method O2 Flow Rate 06/30/24 10:51 36.8 C 77 21 156/79 H 96 Nasal Cannula 2.5 06/30/24 09:55 Nasal Cannula, CPAP 06/30/24 07:38 36.8 C 74 20 135/77 95 Nasal Cannula 2.5 06/30/24 01:45 Nasal Cannula 2.5 06/30/24 01:45 37 C 82 21 116/69 93 Nasal Cannula 2.5 Laboratory Results Short CBC 06/30/24 Range/Units 05:56 WBC 9.31 (4.8-10.8) K/ul Hgb 11.2 L (12.0-16.0) g/dl Hct 35.6 L (37.0-47.0) % Plt Count 319 (130-400) K/uL BMP 06/30/24 05:56 Sodium 137 Potassium 4.1 Chloride 100 Carbon Dioxide 30 BUN 21 Creatinine 0.69 Glucose 106 H Calcium 9.2
[2024-06-30] MEDS: HEPARIN SOD (PORCINE) 1000 UNIT/ML IV ONE (15:46)
[2024-06-30] MEDS: CLOBETASOL PROPIONATE 0.05% OINT 15 GM TUBE EXT SCH (17:51)
[2024-06-30] MEDS: PRAVASTATIN SOD 40 MG TAB PO SCH (18:24)
[2024-06-30] MEDS: dilTIAZem HCL 120 MG CAPCR PO SCH (21:06)
[2024-06-30 22:23] LABS: ANTI-Xa, UFH(UnfractionatedHep 0.35 IU/ml (0.3-0.7)
[2024-07-01 06:33] LABS: Hemoglobin 10.5 g/dl (12.0-16.0); Mean Corpuscular Hemoglobin 27.5 pg (25.0-34.0); Mean Corpuscular Hgb Conc 31.8 g/dL (32.0-36.0); Mean Corpuscular Volume 86.4 fL (80.0-100.0); Mean Platelet Volume 9.5 fL (9.4-12.4); Platelet Count 302 K/uL (130-400); RDW Coefficient of Variation 13.9 % (11.5-14.5); RDW Standard Deviation 43.6 fL (36.4-46.3); Red Blood Count 3.82 M/uL (4.20-5.40); White Blood Count 13.25 K/ul (4.8-10.8)
[2024-07-01 07:02] LABS: BUN Creatinine Ratio 32.8 (10-20); Calcium 9.3 mg/dl (8.6-10.3); Creatinine Clr Calc Pharmacy 92.1 ml/min; Potassium 4.2 mmol/L (3.5-5.1)
[2024-07-01 07:20] LABS: ANTI-Xa, UFH(UnfractionatedHep 0.27 IU/ml (0.3-0.7)
--- NOTE | 2024-07-01 08:28 | XRay Report ---
EXAM: Radiograph of the Chest 1 View INDICATION: Fever TECHNIQUE: Frontal view of the chest. COMPARISON: 06/29/2024 FINDINGS: Lungs and pleural spaces: Stable minimal scarring or atelectasis left base. No consolidation or pulmonary edema. No pleural effusion or pneumothorax. Heart: Stable large cardiac shadow and recording device. Mediastinum: Normal contour. Bones/joints: No fracture, erosion or dislocation. Soft tissues: No abnormality noted. No radiopaque foreign body noted. Vasculature: Stable ectatic aorta allowing for positional differences. Upper abdomen: No abnormality noted. IMPRESSION: Stable minimal scarring or atelectasis left base. ACT 112: Negative or not required by law. Electronically signed by Nicky Potter 07-01-2024 08:27 AM
--- NOTE | 2024-07-01 10:14 | Electrocardiogram Report ---
Test Reason : Blood Pressure : */* mmHG Vent. Rate : 75 BPM Atrial Rate : 75 BPM P-R Int : 178 ms QRS Dur : 88 ms QT Int : 386 ms P-R-T Axes : 34 12 72 degrees QTcB Int : 431 ms Sinus rhythm with marked sinus arrhythmia Poor R wave progression, consider anterior NE vs. lead placement vs. LVH Abnormal ECG When compared with ECG of 29-Jun-2024 09:34, Borderline criteria for Inferior infarct are now Present Confirmed by Codey Bueno ([id number]) on 07/01/2024 10:14:12 AM Referred By: REFERRED SELF Confirmed By: Codey Bueno
[2024-07-01] MEDS: DOXYCYCLINE HYCLATE 100 MG CAP PO SCH (12:40)
[2024-07-01] MEDS ORDERED: ALUMINUM/MAGNESIUM/SIMETH (MAALOX MAX) 30 ML UDC PO PRN (12:47)
[2024-07-01] MEDS: SODIUM CHLORIDE 0.65% NA SOLN 45 ML (OCEAN) PRN (13:28)
[2024-07-01] MEDS: cefTRIAXone SODIUM 2,000 MG/50 ML BAG IV SCH (13:36)
--- NOTE | 2024-07-01 13:42 | Cardiology Progress Note ---
Date of Service July 01, 2024 Assessment & Plan (1) NSTEMI (non-ST elevated myocardial infarction): Plan NSTEMI Nausea, vomiting, diarrhea Nonocclusive CAD (per CATH 2013) Coronary artery calcification on CT PAF s/p PVI ablation Hx pericarditis EUSEBIA on CPAP obesity 3.5cm thoracic aortic aneurysm -Patient remains chest pain free. -Troponin mildly elevated. No repeat completed. Ordered and currently pending. -EKG without acute changes. -Continue heparin drip -ECHO yesterday with preserved LVEF with apical, septal and anteroseptal WMA -CT chest with significant amount of multivessel calcification -Plan for inpatient cardiac CATH tomorrow. NPO after midnight. Case discussed with Dr Flores. I spent a total of 37 minutes on the date of service in preparation, delivery, and documentation of the care provided to this patient, excluding any time spent in the performance of separately billed services. Allie Narayan PA-C Department of Cardiology, [facility] This chart was completed in part utilizing Speech Voice Recognition Software. Grammatical errors, random word insertions, pronoun errors, and incomplete sentences are an occasional consequence of this system due to software limitations, ambient noise, and hardware issues. Any formal questions or concerns about the content, text, or information contained within the body of this dictation should be directly addressed to the provider for clarification. Admission and Anticipated Discharge Date Admission Date: June 29, 2024 Supervising Physician Co-Signing Physician Notes I spent a total of 30 minutes on the date of service in preparation, delivery, and documentation of the care provided to this patient, excluding any time spent in the performance of separately billed services. I have personally performed a history and physical examination on the patient. I have reviewed the advance practitioner's documentation, and I agree with, and take responsibility for the plan of care. Keep n.p.o. after midnight in anticipation for left heart catheterization in the morning. Recommend switching pravastatin to Lipitor 80 mg p.o. daily. Review of Systems Review of Systems: All systems reviewed & are unremarkable except as noted in HPI & below Physical Exam Constitutional: WD/WN, vitals as above Eyes: PERRL, conjunctivae normal, anicteric sclerae Neck: normal visual inspection Cardiovascular: RRR, no murmur, no edema Vessels: no JVD Skin: no rashes, warm and dry Results & Data Vital Signs (Past 12 Hours) Vital Signs Temp Pulse Pulse Resp BP Pulse Ox O2 Del Method 07/01/24 11:21 37 C 67 17 123/79 94 Nasal Cannula 07/01/24 08:38 Nasal Cannula 07/01/24 07:45 37.8 C H 79 17 105/67 91 Nasal Cannula 07/01/24 07:00 80 07/01/24 02:50 36.7 C 86 17 104/63 96 Nasal Cannula O2 Flow Rate 07/01/24 11:21 3 07/01/24 08:38 3 07/01/24 07:45 3 07/01/24 07:00 07/01/24 02:50 2.5 Laboratory Results CBC 07/01/24 Range/Units 06:11 WBC 13.25 H (4.8-10.8) K/ul RBC 3.82 L (4.20-5.40) M/uL Hgb 10.5 L (12.0-16.0) g/dl Hct 33.0 L (37.0-47.0) % Plt Count 302 (130-400) K/uL Comprehensive Metabolic Panel 07/01/24 Range/Units 06:11 Sodium 136 (136-145) mmol/L Potassium 4.2 (3.5-5.1) mmol/L Chloride 100 (98-107) mmol/L Carbon Dioxide 29 (21-32) mmol/L BUN 22 (6-23) mg/dl Creatinine 0.67 (0.6-1.2) mg/dl Glucose 107 H (70-99(Fasting)) mg/dl Calcium 9.3 (8.6-10.3) mg/dl Intake and Output 06/30/24 07/01/24 07/01/24 22:59 06:59 14:59 Intake Total 1517.817 / 2979.767 491.15 / 2979.767 23.817 / 23.817 Output Total 300 / 300 Balance 1517.817 / 2979.767 491.15 / 2979.767 -276.183 / -276.183 Intake: IV 1157.817 / 1629.767 291.15 / 1629.767 23.817 / 23.817 Heparin 23804 Unit/500 ml D5w 157.817 / 629.767 291.15 / 629.767 23.817 / 23.817 25,000 units In 500 ml @ 1,400 UNITS/HR 28 mls/hr IV .[id number] [facility] Rx#:[id number] Sodium Chloride 0.9% 1,000 ml @ 1000 / 1000 60 mls/hr IV .[id number] ONE Rx#: [id number] Oral 360 / 1350 200 / 1350 Output: Urine 300 / 300 Other: # Unmeasured Voids 1 1 Weight 104.7 kg Weight Measurement Method Standing Scale Diagnostic Findings ECHO 06/30/2024 LVEF 55-60% right ventricle mildly dilated RV systolic function is normal No significant valvular disease moderate sized apical, septal and anteroseptal WMA with hypokinesis of the segments.
[2024-07-01 14:01] LABS: ANTI-Xa, UFH(UnfractionatedHep 0.27 IU/ml (0.3-0.7)
[2024-07-01] MEDS: FLUTICASONE FUROATE 100MCG 14 PUFFS/INHALER INH SCH (14:39)
--- NOTE | 2024-07-01 15:26 | Hospitalist Progress Note ---
Date of Service July 01, 2024 Assessment & Plan (1) NSTEMI (non-ST elevated myocardial infarction): Plan: NSTEMI H/O Nonocclusive CAD --Chest CTA:No thoracic aortic dissection. Aneurysmal dilatation of the mid descending thoracic aorta measuring 3.6 cm, slightly increased since CT of June 21, 2023. Mild alveolar opacities within the lower lobes suggestive of an infectious process. Cardiomegaly. -- Troponin Level trended up --Normal TSH --Echo: EF 55 to 60%. Right ventricle is mildly dilated. Right ventricular systolic pressure is normal. No significant valvular disease. Moderate sized apical, septal, anteroseptal wall motion abnormality with hypokinesis of the segments. --HbA1c 5.9 -- Total cholesterol 222, triglycerides 184, LDL 144 -- Started on aspirin 81 mg daily, pravastatin -- Continue IV heparin Appreciate cardiology input N.p.o. after midnight for possible cardiac catheterization tomorrow Suspected pneumonia Reports chronic cough due to COPD --CTA:Mild alveolar opacities within the lower lobes suggestive of an infectious process --Normal procalcitonin --BioFire negative --Blood cultures Empirically started on Rocephin, doxycycline Hyperlipidemia H/O atorvastatin intolerance Trial of pravastatin Gastroenteritis --CT ABD: No acute process is identified in the abdomen and pelvis. Chronic findings include a 3.5 cm descending thoracic aortic aneurysm and a fat- containing ventral hernia just above the umbilicus. This hernia has increased from 3 to 4 cm since the prior study. --Stool studies pending -- Advance diet as tolerated Thoracic aortic aneurysm Incidental finding on CT Advised to follow-up as outpatient Morbid obesity BMI 42 Paroxysmal atrial fibrillation S/P ablation, post ablation pericarditis Continue Cardizem GERD Continue PPI RLS On ropinirole as needed Hypertension Continue current medications Monitor COPD Chronic cough No signs of exacerbation Continue home medications EUSEBIA on CPAP Prediabetes HbA1c 5.9 H/O Endometrial cancer S/P surgery DVT Px: Heparin ggt Code Status Full Code Admission and Anticipated Discharge Date Admission Date: June 29, 2024 Subjective Patient is seen and examined at bedside Low-grade fever this morning Also reports headache and cough today Abdominal pain improving but not completely resolved No other complaints today Review of Systems Review of Systems: All systems reviewed & are unremarkable except as noted in Subjective Physical Exam Physical Exam: Physical Exam: Vitals signs as noted above General Appearance:Morbidly Obese, no apparent distress Head: normocephalic, Atraumatic Eyes: normal inspection, EOMI Neck: supple, Trachea midline Respiratory/Chest: Normal breath sounds, basal crackles, No accessory muscle use Cardiovascular: S1, S2, no murmur Abdomen/GI:Soft, mild tender, Bowel sounds present Extremities/Musculoskeletal:normal inspection, no edema Neurologic/Psych:AAOX3, grossly no focal neurological deficits Skin: normal color, warm Results & Data Results & Data Vital Signs (Past 12 Hours) Vital Signs Temp Pulse Pulse Resp BP Pulse Ox O2 Del Method 07/01/24 11:21 37 C 67 17 123/79 94 Nasal Cannula 07/01/24 08:38 Nasal Cannula 07/01/24 07:45 37.8 C H 79 17 105/67 91 Nasal Cannula 07/01/24 07:00 80 O2 Flow Rate 07/01/24 11:21 3 07/01/24 08:38 3 07/01/24 07:45 3 07/01/24 07:00 Laboratory Results Short CBC 07/01/24 Range/Units 06:11 WBC 13.25 H (4.8-10.8) K/ul Hgb 10.5 L (12.0-16.0) g/dl Hct 33.0 L (37.0-47.0) % Plt Count 302 (130-400) K/uL BMP 07/01/24 06:11 Sodium 136 Potassium 4.2 Chloride 100 Carbon Dioxide 29 BUN 22 Creatinine 0.67 Glucose 107 H Calcium 9.3
[2024-07-01] MEDS: PROMETHAZINE 6.25 MG/50.25 ML BAG IV PRN (20:13)
[2024-07-01 21:10] LABS: ANTI-Xa, UFH(UnfractionatedHep 0.32 IU/ml (0.3-0.7)
[2024-07-02 05:53] LABS: Hematocrit (blood only) 34.3 % (37.0-47.0); Hemoglobin 10.7 g/dl (12.0-16.0); Mean Corpuscular Hemoglobin 27.1 pg (25.0-34.0); Mean Corpuscular Hgb Conc 31.2 g/dL (32.0-36.0); Mean Corpuscular Volume 86.8 fL (80.0-100.0); Mean Platelet Volume 9.5 fL (9.4-12.4); Platelet Count 293 K/uL (130-400); RDW Coefficient of Variation 13.7 % (11.5-14.5); RDW Standard Deviation 43.2 fL (36.4-46.3); Red Blood Count 3.95 M/uL (4.20-5.40); White Blood Count 12.52 K/ul (4.8-10.8)
[2024-07-02 06:07] LABS: BUN Creatinine Ratio 31.4 (10-20); Calcium 9.7 mg/dl (8.6-10.3); Creatinine Clr Calc Pharmacy 88.1 ml/min; Potassium 4.3 mmol/L (3.5-5.1)
[2024-07-02 06:14] LABS: ANTI-Xa, UFH(UnfractionatedHep 0.35 IU/ml (0.3-0.7)
--- NOTE | 2024-07-02 12:46 | Pre Anesthesia Assessment ---
Date of Service July 02, 2024 Pre Sedation Assessment Vital Signs Temp Pulse Pulse Resp BP BP Pulse Ox 07/02/24 12:00 78 18 127/63 93 07/02/24 10:37 37.0 C 73 18 112/72 91 07/02/24 08:03 36.8 C 71 22 116/70 96 07/02/24 07:30 07/02/24 04:05 90 31 H 93 07/02/24 03:52 36.4 C L 68 18 108/68 92 07/02/24 00:22 81 19 93 07/01/24 23:00 36.7 C 92 H 18 125/72 91 07/01/24 21:58 84 07/01/24 20:00 07/01/24 19:37 37.4 C 79 18 122/72 94 07/01/24 19:30 07/01/24 15:23 36.9 C 76 18 107/66 96 07/01/24 14:00 90 Pulse Ox O2 Del Method O2 Del Method O2 Flow Rate O2 Flow Rate 07/02/24 12:00 Room Air 07/02/24 10:37 Room Air 07/02/24 08:03 CPAP 07/02/24 07:30 Nasal Cannula 07/02/24 04:05 2 07/02/24 03:52 CPAP 07/02/24 00:22 2 07/01/24 23:00 CPAP 3.0 07/01/24 21:58 07/01/24 20:00 94 Nasal Cannula 3 07/01/24 19:37 Nasal Cannula 3.0 07/01/24 19:30 Nasal Cannula 3 07/01/24 15:23 Nasal Cannula 3 07/01/24 14:00 Cardiovascular RRR, no murmur, no edema no JVD + edema (Trace) Respiratory normal respiratory effort, lungs clear to auscultation Pre-Sedation Airway Assessment Smoking Status: Never smoker Hx Sleep Apnea: Yes Short, Thick Neck: No Thyromental Distance: > or= 3.5 Finger Breadths Oral Cavity: + WNL Mallampati Class: III ASA: ASA3 NPO Status Date of Last Intake of Fluids: 07/02/24 Time of Last Intake of Fluids: 07:00 Date of Last Intake of Solid Food: 07/01/24 Time of Last Intake of Solid Foods: 19:00 Procedure Planning Contraindications for Sedation: none Current Medications Reviewed: Yes Notes The planned sedation has been discussed with the patient. Informed Consent was obtained. I have identified the patient, determined the appropriateness of sedation and have assessed the patient immediately prior to the procedure. All medicine(s) and interventions are by my order.
--- NOTE | 2024-07-02 12:49 | Cardiology Progress Note ---
Date of Service July 02, 2024 Assessment & Plan (1) NSTEMI (non-ST elevated myocardial infarction): Plan NSTEMI Nausea, vomiting, diarrhea Nonocclusive CAD (per CATH 2013) Coronary artery calcification on CT PAF s/p PVI ablation Hx pericarditis EUSEBIA on CPAP obesity 3.5cm thoracic aortic aneurysm -Patient remains chest pain free. -Troponin mildly elevated. No repeat completed. Ordered and currently pending. -EKG without acute changes. -Continue heparin drip -ECHO yesterday with preserved LVEF with apical, septal and anteroseptal WMA -CT chest with significant amount of multivessel calcification -Plan for inpatient cardiac CATH tomorrow. NPO after midnight. 07/02/2024 69-year-old female with presented with initially symptoms of gastroenteritis followed by symptoms consistent with prior angina pectoris with classic viselike chest pressure pain and discomfort. Troponin elevation consistent with non-ST segment elevation myocardial infarction with wall motion abnormality noted on echocardiogram. Patient undergo cardiac catheterization today. Procedure and risks explained in detail to the patient informed consent obtained. Cardiac catheterization demonstrated two-vessel significant coronary disease with long area of 60 to 70% stenosis in the mid left anterior descending hemodynamically significant as well as a large caliber high marginal branch with 90% proximal stenosis hazy and likely culprit. Patient referred for two-vessel coronary intervention. See procedural report Admission and Anticipated Discharge Date Admission Date: June 29, 2024 Subjective Patient is a 69-year-old female seen on exam today. Chart medications and telemetry reviewed. Abdominal pain mild discomfort but no further GI upset nausea or vomiting. No chest pain no tachypalpitations no arrhythmias on telemetry. Remains anticoagulated with IV heparin. N.p.o. after midnight Review of Systems Review of Systems: All systems reviewed & are unremarkable except as noted in Subjective Physical Exam Constitutional: WD/WN, vitals as above Eyes: PERRL, conjunctivae normal, anicteric sclerae ENMT: Mallampati Class: III Neck: normal visual inspection Respiratory: normal respiratory effort, lungs clear to auscultation Cardiovascular: RRR, no murmur, no edema Vessels: normal carotid upstroke and radial pulses present; no JVD Extremities: + edema (Trace) Gastrointestinal (Abdomen): Percussion/Palpation: abdomen soft; abdomen nontender Skin: no rashes, warm and dry Psychiatric: A+Ox3, euthymic affect Results & Data Vital Signs (Past 12 Hours) Vital Signs Temp Pulse Pulse Resp BP BP Pulse Ox 07/02/24 12:00 78 18 127/63 93 07/02/24 10:37 37.0 C 73 18 112/72 91 07/02/24 08:03 36.8 C 71 22 116/70 96 07/02/24 07:30 07/02/24 04:05 90 31 H 93 07/02/24 03:52 36.4 C L 68 18 108/68 92 O2 Del Method O2 Flow Rate 07/02/24 12:00 Room Air 07/02/24 10:37 Room Air 07/02/24 08:03 CPAP 07/02/24 07:30 Nasal Cannula 07/02/24 04:05 2 07/02/24 03:52 CPAP Laboratory Results Laboratory Results - last 24 hr 07/01/24 07/01/24 07/02/24 13:12 20:29 05:26 WBC 12.52 H RBC 3.95 L Hgb 10.7 L Hct 34.3 L MCV 86.8 MCH 27.1 MCHC 31.2 L RDW Std Deviation 43.2 RDW Coeff of Emma 13.7 Plt Count 293 MPV 9.5 Heparin Anti-Xa, Unfract 0.27 L 0.32 0.35 Sodium 138 Potassium 4.3 Chloride 101 Carbon Dioxide 31 Anion Gap 6 BUN 22 Creatinine 0.70 Est Cr Clr Drug Dosing 88.1 eGFR 94.73 BUN/Creatinine Ratio 31.4 H Glucose 115 H Calcium 9.7 Troponin I High Sens 73.9 H* D
--- NOTE | 2024-07-02 14:01 | Cardiac Catheterization ---
Cardiac Cath Procedure Brief Procedure Date July 02, 2024 Pre-Procedure Diagnosis Pre-Procedure Diagnosis: Non STEMI and Angina AUC Score AUC Score: 8 Post-Procedure Diagnosis Post-Procedure Diagnosis: Severe CAD Procedure(s) Performed Procedure(s) Performed: Coronary Angiography Graphic Pre Press Trades Worker Rashaun Felix MD Risk Lead(s) Guadalupe Arceo Estimated Blood Loss Estimated Blood Loss: <15cc Medication(s) Medication(s): Fentanyl (12.5 mcg IV), Heparin (5000 units IV), Lidocaine 1% (Local infiltration access site), Nicardipine (250 mcg intra-arterial after arterial sheath insertion) and Versed (1 mg IV) Preliminary Findings Impression: Right dominant anatomy with diffuse atheromatous changes, irregularities Obstructive coronary disease with severe hazy stenosis 90% proximal high marginal branch circumflex. Mid left anterior descending long 6070 % stenosis Procedure: Coronary angiography via right radial access with ultrasonic guidance Catheters: 6 Pakistani long glide radial sheath, 5 Pakistani TGR, 5 Pakistani JL 3.5 Coronary angiography: Right dominant anatomy Left main: Relatively short normal caliber vessel with moderate irregularities Left anterior descending: Type II in distribution with thin apical segment. It gives rise to 2 large septal branches in its proximal third and 2 moderate-sized diagonal branches in its midportion. There is diffuse atherosclerosis in its proximal third with a 30% taper at its origin and a long 60-70 % stenosis in its midportion. Second diagonal arises out of the most severe stenosis and is diffuse proximal disease Left circumflex: Large but nondominant. Gives rise to a large and long high marginal branch then continues to give rise to a second marginal branch and a small posterolateral branch. The ostial portion of the circumflex obtuse marginal is narrowed by 90% with hazy eccentric stenosis Right coronary artery: Large-caliber dominant distribution vessel. Gives rise to 2 right ventricular branches in its midportion. At the AV groove it gives rise to a long tortuous posterior descending artery and the along the AV groove a small posterior ventricular branch and a long terminal posterior ventricular branch. Within the right coronary artery there is moderate diffuse luminal irregularities throughout with a small area of ectasia in its midportion. No obstruction Recommendations Recommendations: PCI without planned CABG Specimens Specimens: None Anesthesia Start time: 1317, stop time: 1348 Procedural Complication(s) None Disposition PCI same setting
--- NOTE | 2024-07-02 14:15 | Cardiac Catheterization ---
Cardiac Cath Procedure Full Procedure Date July 02, 2024 Pre-Procedure Diagnosis Pre-Procedure Diagnosis: Non STEMI and Angina AUC Score AUC Score: 8 Post-Procedure Diagnosis Post-Procedure Diagnosis: Severe CAD Procedure(s) Performed Procedure(s) Performed: Coronary Angiography Emergency Room Registered Nurse Rashaun Felix MD It Teacher(s) Guadalupe Arceo Estimated Blood Loss Estimated Blood Loss: <15cc Medication(s) Medication(s): Fentanyl (12.5 mcg IV), Heparin (5000 units IV), Lidocaine 1% (Local infiltration access site), Nicardipine (250 mcg intra-arterial after arterial sheath insertion) and Versed (1 mg IV) Summary of Findings Impression: Right dominant anatomy with diffuse atheromatous changes, irregularities Obstructive coronary disease with severe hazy stenosis 90% proximal high marginal branch circumflex. Mid left anterior descending long 6070 % stenosis.Diffuse luminal irregularities right coronary artery Procedure: Coronary angiography via right radial access with ultrasonic guidance Catheters: 6 British long glide radial sheath, 5 British TGR, 5 British JL 3.5 Coronary angiography: Right dominant anatomy Left main: Relatively short normal caliber vessel with moderate irregularities Left anterior descending: Type II in distribution with thin apical segment. It gives rise to 2 large septal branches in its proximal third and 2 moderate-sized diagonal branches in its midportion. There is diffuse atherosclerosis in its proximal third with a 30% taper at its origin and a long 60-70 % stenosis in its midportion. Second diagonal arises out of the most severe stenosis and is diffuse proximal disease Left circumflex: Large but nondominant. Gives rise to a large and long high marginal branch then continues to give rise to a second marginal branch and a small posterolateral branch. The ostial portion of the circumflex obtuse marginal is narrowed by 90% with hazy eccentric stenosis Right coronary artery: Large-caliber dominant distribution vessel. Gives rise to 2 right ventricular branches in its midportion. At the AV groove it gives rise to a long tortuous posterior descending artery and the along the AV groove a small posterior ventricular branch and a long terminal posterior ventricular branch. Within the right coronary artery there is moderate diffuse luminal irregularities throughout with a small area of ectasia in its midportion. No obstruction Hemodynamics Rest Ao:: 119/67 Final Ao: N/A LV: N/A Recommendations Recommendations: PCI without planned CABG Specimens Specimens: None Radiation Exposure (mGy) 1204 Contrast (mls) 90 Anesthesia Start time: 1317, stop time: 1348 Procedural Complication(s) None Disposition PCI same setting I attest to the content of the Intraoperative Record and any orders documented therein. Any exceptions are noted below. ACC Data: Placement Manager Cardiac Status Clinical evaluation leading to the procedure 69-year-old female with known nonobstructive coronary disease initially presented with symptoms of gastroenteritis and abdominal pain followed by severe viselike chest pressure pain consistent with prior angina. Patient with elevation in troponin wall motion abnormality on echocardiogram CAD Presenation: Non STEMI Anginal Classification: CCS IV Heart Failure: No Cardiogenic Shock within 24 Hours: No Cardiac Arrest within 24 Hours: No Imaging Studies Past 6 Months: Yes Stress Studies Past 6 Months: No Standard Exercise Test: No Stress Echocardiogram: No Stress Testing w/SPECT MPI: No Cardiac CTA: No STEMI OR Non-STEMI Symptom Onset Date: 06/29/24 Symptom Onset Time: 08:00 Thrombolytics: No Coronary Anatomy Dominant: Right Left Main (% Stenosis): Distal (10) LAD (% Stenosis): Proximal (30) and Mid (70) D1 (% Stenosis): Normal D2 (% Stenosis): Normal OM1 (% Stenosis): Proximal (90) OM2 (% Stenosis): Normal L PL1 (% Stenosis): Normal RCA (% Stenosis): Mid (Diffuse moderate luminal irregularities and ectasia) R PDA (% Stenosis): Normal R PL1 (% Stenosis): Normal R PL2 (% Stenosis): Normal Left Ventricular Angiography EF (%): N/A Diagnostic Physicians Name: Rashaun Felix MD Status: Urgent Closure Device Percutaneous Entry Location: Radial Recommendations: PCI without planned CABG
[2024-07-02] MEDS: niCARdipine 2,000 MCG/20 ML SYR ONE (14:41)
[2024-07-02] MEDS: HEPARIN (PORCINE) 1000 UNIT/ML 10 ML (CATH LAB USE ONLY) ONE ×2 (14:42→15:19)
[2024-07-02] MEDS: MIDAZOLAM HCL 1 MG/ML 2ML VIAL ONE ×4 (14:42→15:43)
[2024-07-02] MEDS: NITROGLYCERIN/D5W 100MCG/ML 20ML SYR ONE (14:42)
[2024-07-02] MEDS: fentaNYL citrate PF 100 MCG/2 ML VIAL ONE ×3 (14:43→16:57)
[2024-07-02] MEDS ORDERED: STAT IV Infusion **Titration per Protocol STA (15:37)
[2024-07-02] MEDS: IODIXANOL (VISIPAQUE) 320 MG/ML 100ML IV ONE ×2 (15:37→16:55)
[2024-07-02] MEDS: CLOPIDOGREL BISULFATE 300 MG TAB ONE (15:45)
[2024-07-02] MEDS: NITROGLYCERIN/D5W 100 MCG/ML BTL ONE (15:45)
[2024-07-02] MEDS: ONDANSETRON INJ 2 MG/ML 2 ML VIAL ONE (15:45)
[2024-07-02] MEDS: Heparin IV Adult Wt-Based Low-Dose *NO* INITIAL Bolus Protocol IV STA (15:46)
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
[2024-07-02] MEDS: NITROGLYCERIN/D5W 100MCG/ML 250 ML IV SCH (15:47)
[2024-07-02] MEDS: FUROSEMIDE 40 MG/4 ML VIAL IV ONE ×2 (16:09→16:54)
[2024-07-02] MEDS: HEPARIN 25000 UNIT/500 ML D5W 25,000 UNITS/500 ML BAG IV SCH (17:00)
[2024-07-02] MEDS: MoRPHine SULFATE 4 MG/ML 1 ML CARP\\VIAL IV PRN (17:25)
--- NOTE | 2024-07-02 17:40 | Hospitalist Progress Note ---
Date of Service July 02, 2024 Assessment & Plan (1) NSTEMI (non-ST elevated myocardial infarction): Plan: NSTEMI H/O Nonocclusive CAD --Chest CTA:No thoracic aortic dissection. Aneurysmal dilatation of the mid descending thoracic aorta measuring 3.6 cm, slightly increased since CT of June 21, 2023. Mild alveolar opacities within the lower lobes suggestive of an infectious process. Cardiomegaly. -- Troponin Level trended up --Normal TSH --Echo: EF 55 to 60%. Right ventricle is mildly dilated. Right ventricular systolic pressure is normal. No significant valvular disease. Moderate sized apical, septal, anteroseptal wall motion abnormality with hypokinesis of the segments. --HbA1c 5.9 -- Total cholesterol 222, triglycerides 184, LDL 144 --S/P cardiac catheterization and PCI --Cath:Right dominant anatomy with diffuse atheromatous changes, irregularities Obstructive coronary disease with severe hazy stenosis 90% proximal high marginal branch circumflex. Mid left anterior descending long 6070 % stenosis.Diffuse luminal irregularities right coronary artery -- Started on aspirin 81 mg daily, pravastatin -- Continue IV heparin, nitro gtt. Appreciate cardiology, critical care input Will be monitored in ICU today Suspected pneumonia Reports chronic cough due to COPD --CTA:Mild alveolar opacities within the lower lobes suggestive of an infectious process --Normal procalcitonin --BioFire negative --Blood cultures-negative to date- Empirically started on Rocephin, doxycycline Hyperlipidemia H/O atorvastatin intolerance Trial of pravastatin Gastroenteritis --CT ABD: No acute process is identified in the abdomen and pelvis. Chronic findings include a 3.5 cm descending thoracic aortic aneurysm and a fat- containing ventral hernia just above the umbilicus. This hernia has increased from 3 to 4 cm since the prior study. --Stool studies pending -- Advance diet as tolerated Thoracic aortic aneurysm Incidental finding on CT Advised to follow-up as outpatient Morbid obesity BMI 42 Paroxysmal atrial fibrillation S/P ablation, post ablation pericarditis Continue Cardizem GERD Continue PPI RLS On ropinirole as needed Hypertension Continue current medications Monitor COPD Chronic cough No signs of exacerbation Continue home medications EUSEBIA on CPAP Prediabetes HbA1c 5.9 H/O Endometrial cancer S/P surgery DVT Px: Heparin ggt Code Status Full Code Admission and Anticipated Discharge Date Admission Date: June 29, 2024 Subjective Patient is seen and examined at bedside Still has cough No other complaints today Had cardiac catheterization this morning Discussed with cardiology Still has some abdominal discomfort Review of Systems Review of Systems: All systems reviewed & are unremarkable except as noted in Subjective Physical Exam Physical Exam: Physical Exam: Vitals signs as noted above General Appearance:Morbidly Obese, no apparent distress Head: normocephalic, Atraumatic Eyes: normal inspection, EOMI Neck: supple, Trachea midline Respiratory/Chest: Normal breath sounds, CTA, No accessory muscle use Cardiovascular: S1, S2, no murmur Abdomen/GI:Soft, mild tender, Bowel sounds present Extremities/Musculoskeletal:normal inspection, no edema Neurologic/Psych:AAOX3, grossly no focal neurological deficits Skin: normal color, warm Results & Data Results & Data Vital Signs (Past 12 Hours) Vital Signs Temp Pulse Pulse Resp BP BP Pulse Ox 07/02/24 17:00 104/62 07/02/24 17:00 84 22 07/02/24 16:48 83 21 93 07/02/24 16:33 81 16 91 07/02/24 16:31 120/76 07/02/24 16:20 116/67 07/02/24 16:04 72 18 116/61 95 07/02/24 15:50 74 18 131/68 93 07/02/24 12:00 78 18 127/63 93 07/02/24 10:37 37.0 C 73 18 112/72 91 07/02/24 08:03 36.8 C 71 22 116/70 96 07/02/24 07:30 O2 Del Method 07/02/24 17:00 07/02/24 17:00 07/02/24 16:48 07/02/24 16:33 07/02/24 16:31 07/02/24 16:20 07/02/24 16:04 Room Air 07/02/24 15:50 Room Air 07/02/24 12:00 Room Air 07/02/24 10:37 Room Air 07/02/24 08:03 CPAP 07/02/24 07:30 Nasal Cannula Laboratory Results Short CBC 07/02/24 Range/Units 05:26 WBC 12.52 H (4.8-10.8) K/ul Hgb 10.7 L (12.0-16.0) g/dl Hct 34.3 L (37.0-47.0) % Plt Count 293 (130-400) K/uL BMP 07/02/24 05:26 Sodium 138 Potassium 4.3 Chloride 101 Carbon Dioxide 31 BUN 22 Creatinine 0.70 Glucose 115 H Calcium 9.7
[2024-07-02] MEDS ORDERED: METOPROLOL TARTRATE 25 MG TAB PO SCH (21:00)
[2024-07-02] MEDS: METOPROLOL SUCC 25MG EXT REL TAB PO SCH (21:54)
[2024-07-02 22:27] LABS: ANTI-Xa, UFH(UnfractionatedHep 0.12 IU/ml (0.3-0.7)
--- NOTE | 2024-07-02 23:17 | Post Anesthesia Assessment ---
Date of Service July 02, 2024 Post Sedation Assessment Vital Signs Temp Pulse Pulse Resp BP BP BP 07/02/24 22:39 89 14 07/02/24 21:30 103/60 07/02/24 21:27 89 22 07/02/24 21:21 88 31 H 07/02/24 21:00 102/63 07/02/24 20:30 85 19 07/02/24 20:30 103/61 07/02/24 20:30 103/61 07/02/24 20:00 86 20 07/02/24 20:00 101/61 07/02/24 19:09 88 21 07/02/24 18:30 97/61 L 07/02/24 18:30 87 21 97/61 L 07/02/24 17:55 85 22 100/55 L 07/02/24 17:30 85 21 84/49 L 07/02/24 17:00 104/62 07/02/24 17:00 84 22 07/02/24 16:48 83 21 07/02/24 16:33 81 16 07/02/24 16:31 120/76 07/02/24 16:20 116/67 07/02/24 16:04 72 18 116/61 07/02/24 16:00 07/02/24 15:50 74 18 131/68 07/02/24 12:00 78 18 127/63 07/02/24 10:37 98.6 F 73 18 112/72 07/02/24 08:03 98.2 F 71 22 116/70 07/02/24 07:30 07/02/24 04:05 90 31 H 07/02/24 03:52 97.5 F L 68 18 108/68 07/02/24 00:22 81 19 Pulse Ox O2 Del Method O2 Flow Rate 07/02/24 22:39 95 2 07/02/24 21:30 07/02/24 21:27 93 07/02/24 21:21 89 L 07/02/24 21:00 07/02/24 20:30 92 07/02/24 20:30 07/02/24 20:30 07/02/24 20:00 94 07/02/24 20:00 07/02/24 19:09 91 07/02/24 18:30 07/02/24 18:30 92 Nasal Cannula 3 07/02/24 17:55 91 Nasal Cannula 3 07/02/24 17:30 92 Nasal Cannula 3 07/02/24 17:00 07/02/24 17:00 07/02/24 16:48 93 07/02/24 16:33 91 07/02/24 16:31 07/02/24 16:20 07/02/24 16:04 95 Room Air 07/02/24 16:00 Nasal Cannula 2 07/02/24 15:50 93 Room Air 07/02/24 12:00 93 Room Air 07/02/24 10:37 91 Room Air 07/02/24 08:03 96 CPAP 07/02/24 07:30 Nasal Cannula 07/02/24 04:05 93 2 07/02/24 03:52 92 CPAP 07/02/24 00:22 93 2 Recovery Score Activity: Moves 4 extremities Respiration: Deep Breath/Cough Circulation: +/-20% PreAnes Value Consciousness: Fully Awake Oxygen Saturation: > 92% On Room Air Post Anesthesia Score: 10 Discharge Sedation Level of Care: Fast Track Phase II Post Sedation Plan On clinical assessment, the patient appears to have tolerated the sedation without complications. Patient is recovering as anticipated. Patient will continue to be monitored by nursing and may be discharged when sedation discharge criteria are met per below protocol. Upon Completions of procedure up to 15 minutes continue every 5 minute vital signs and the P.A.R. score; then discharge to a Phase I or Fast Track to Phase II per the following guidelines: * Discharge Patient to appropriate Phase II area if PAR is 8 or greater or return to pre- procedure baseline. The post - procedure orders will be as directed. * If PAR score is less than 8 or not return to pre-procedure baseline then patient will follow Phase I monitoring till PAR is reached for Phase II. The Phase I may be done in procedure room or may call to secure a Phase I area. * If naloxone or flumazenil are used for reversal, hold in Phase I for continued monitoring from when last reversal dose was given for a minimum of 60 minutes or longer pending the nurse and/or physician discretion of patient condition before discharge to Phase II. Please call the Sedation Physician to re-evaluate and complete post-note for discharge to Phase II area. Do NOT discharge from procedure sedation or Phase 1 until post- sedation evaluation note is complete by procedure /sedation MD Sedation Discharge Instructions to be given to the patient at discharge to home.
[2024-07-02] MEDS: HEPARIN SOD (PORCINE) 1000 UNIT/ML IV ONE (23:22)
--- NOTE | 2024-07-02 23:23 | Cardiac Catheterization ---
[facility] Data: [employer] Cardiac Status Clinical evaluation leading to the procedure CAD Presenation: Non STEMI Anginal Classification: CCS IV Diagnostic Physicians Name: Elbert Harris MD Closure Device Recommendations: PCI without planned CABG Cardiac Cath Procedure Full Procedure Date July 02, 2024 Pre-Procedure Diagnosis Pre-Procedure Diagnosis: Non STEMI and Angina AUC Score AUC Score: 8 Post-Procedure Diagnosis Post-Procedure Diagnosis: Severe CAD Procedure(s) Performed Procedure(s) Performed: Coronary Angiography, Left Heart Cath, Drug Eluting Stent, IVUS and Fractional Flow [employer]ation Crew Member Elbert Harris MD Senior Energy Market Coordinator(s) De[place]ler Estimated Blood Loss Estimated Blood Loss: <15cc Medication(s) Medication(s): Clopidogrel, Fentanyl (12.5 mcg IV), Heparin (5000 units IV), Nicardipine (250 mcg intra-arterial after arterial sheath insertion), Nitroglycerin and Versed (1 mg IV) Summary of Findings Indication: NSTEMI Access: 6 Fr right radial artery Catheters: EBU 3.5 guide Findings: For full details of patient's coronary angiography please see cath report dictated by Dr. Felix. Briefly, patient found to have intermediate proximal to mid LAD disease and severe, acute appearing proximal stenosis and OM1 Decision to proceed with PCI of OM1 and FFR of LAD. IFR of LAD procedure: Left main cannulated with EBU 3.5 guide guide Oakley Omniwire placed into mid LAD IFR 0.85 Decision to proceed with PCI -- PCI -- Antithrombotic therapy: Heparin, clopidogrel Procedure: Pre-procedure flow ELLIOTT 3 Bilaterally wire passed across proximal to mid LAD lesion into distal vessel IVUS catheter placed to mid LAD. Pullback revealed diffuse disease from small first second agonal extending back almost ostium with circumferential calcium. Left main without significant disease. Lesion predilated with 2.5 compliant balloon Dilated lesion stented with 3.0 x 30 mm Stent post-dilated with 3.5 noncompliant balloon Repeat IVUS showed well-expanded, well apposed stent IC vasodilators administered for spasm Post procedure ELLIOTT 3 flow, stent well expanded with minimal residual stenosis and no apparent cardiac complications. Skirt Clipper 50 redirected from LAD into circumflex and across proximal OM1 stenosis Proximal OM1 dilated with 2.5 balloon Proximal OM1 stented with 2.5 x 15 mm [place] MIRIAM Stent postdilated with 2.75 NC Post stent placement noted to have flow-limiting dissection in torturous mid segment OM1. Dissection accompanied by new chest discomfort/dyspnea and ST changes. Eventually able to cross dissection with new airline transport pilot 50 wire Distal intraluminal position confirmed via injection through OTW electronic prepress technician 50 exchanged for a long mailman wire Mid OM1 stented with 2.25 x 15 mm [place] MIRIAM. Stent postdilated with stent balloon Following stent placement ELLIOTT II-III flow but flow compromise in distal medial branch Given multiple rounds of IC vasodilators Brief attempt made to rewire into distal branch unsuccessful and further attempted intervention thought to be associated with more risk than potential benefit Patient with continued chest pain, ST changes. Placed on heparin and nitroglycerin infusions Arterial Closure: TR band Summary: 1. Severe multivessel coronary artery disease Diffuse proximal to mid LAD up to 70% (IFR positive at 0.85) 80% acute proximal OM1 2. Successful PCI of proximal to mid LAD with single drug-eluting stent (3.0 x 30 mm [place]; postdilated with 3.5 NC). 3. PCI of proximal OM1 with 2.5 x 15 [place] postdilated with 2.75 NC. -- Procedure complicated by mid OM1 dissection treated with additional MIRIAM (2.25 x 15 [place]). -- Residual dissection/no reflow in medial, distal branch of OM1 downstream from stents. 4. Elevated LV filling pressures postprocedure (LVEDP 29) Recommendations: To ICU for continued monitoring Loaded with clopidogrel 600 mg in [employer] Continue heparin and nitroglycerin infusion overnight for residual acute branch vessel disease Received 1 dose of IV Lasix Continue dual-antiplatelet therapy for at least 1 year Continue statin, and ASCVD risk factor modification Consult cardiac Rehab Hemodynamics Rest Ao:: 119/67/91 Final Ao: 160/93/1 0.3 LV: 152/29 Recommendations Recommendations: PCI without planned CABG Specimens Specimens: None Radiation Exposure (mGy) 7529 Contrast (mls) 320 Anesthesia Start time: 1348, stop time: 1531 Procedural Complication(s) None Disposition ICU I attest to the content of the Intraoperative Record and any orders documented therein. Any exceptions are noted below. Rare PinkG Card Cath Procedure Codes Cardiac Catheterization Procedure 1: Cardiovascular Cath Procedures: 56959 Left Heart Cath (+/-LV) Procedure 2: Cardiovascular Cath Procedures: 60772 (Doppler) Pressure Wire Therapeutic Services & Ancillary Procedure 1: Cardiovascular Tx and Anc Procedures: 57742 IV Ultrasound (Coronary or Graft) Moderate Sedation Procedure 1: Sedation/Anesthesia: 75408 Mod Sedation by the same physician; Ea [id number] Minutes Stenting Procedure 1: Cardiovascular Stent Procedures: 02569 Perc transcatheter placement of intracoronary stent(s), with ang PG Care Time/CCT Total # of Minutes Spent Total Time Spent with Patient: Total time spent is greater than 50% in coordination of care (as documented) at patient's floor/unit and/or counseling patient:
[2024-07-03 05:06] LABS: Hematocrit (blood only) 31.4 % (37.0-47.0); Hemoglobin 10.1 g/dl (12.0-16.0); Mean Corpuscular Hemoglobin 27.8 pg (25.0-34.0); Mean Corpuscular Hgb Conc 32.2 g/dL (32.0-36.0); Mean Corpuscular Volume 86.5 fL (80.0-100.0); Mean Platelet Volume 9.4 fL (9.4-12.4); Platelet Count 299 K/uL (130-400); RDW Coefficient of Variation 13.8 % (11.5-14.5); RDW Standard Deviation 42.8 fL (36.4-46.3); Red Blood Count 3.63 M/uL (4.20-5.40); White Blood Count 14.03 K/ul (4.8-10.8)
[2024-07-03 05:26] LABS: BUN Creatinine Ratio 29.3 (10-20); Calcium 9.4 mg/dl (8.6-10.3); Creatinine Clr Calc Pharmacy 82.3 ml/min; Magnesium 1.7 mg/dl (1.7-2.4); Potassium 4.2 mmol/L (3.5-5.1)
[2024-07-03] MEDS: ICU ELECTROLYTE REPLACEMENT PROTOCOL SCH (05:32)
[2024-07-03 05:35] LABS: ANTI-Xa, UFH(UnfractionatedHep 0.12 IU/ml (0.3-0.7)
[2024-07-03] MEDS: MAGNESIUM SULFATE / D5W 1 GM/100 ML BAG IV SCH (05:51)
[2024-07-03] MEDS: HEPARIN SOD (PORCINE) 1000 UNIT/ML IV ONE (06:26)
--- NOTE | 2024-07-03 07:26 | Critical Care Progress Note ---
Date of Service July 03, 2024 Assessment & Plan (1) Non-ST elevation RI (NSTEMI): (2) Coronary artery dissection: (3) HTN (hypertension): (4) GERD (gastroesophageal reflux disease): (5) Sleep apnea: Plan Reason Critically Ill: 69-year-old female was admitted to the hospital for NSTEMI Past medical history: Hypertension, dyslipidemia, EUSEBIA, prediabetes She was sent to the ICU for management after cardiac catheter Neuro - [facility] ICU: Negative Cardiac - -- Coronary artery disease Drug-eluting stent placed in the mid LAD Dissection of the obtuse marginal 1 status post stent, residual dissection/no reflow in medial distal branch of OM downstream from stents Continue with nitroglycerin drip and heparin drip Continue monitoring in the ICU EKG post cath shows ST depressions with T wave inversions on the inferior and lateral leads. --Hypertension On diltiazem at home, currently on hold Was started on metoprolol Respiratory - --Left lower lobe pneumonia Appreciated on CTA chest done 06/29/2024 Continue with antibiotics for 5 days --EUSEBIA Continue with CPAP at night -- Nocturnal hypoxia GI - No acute issues RENAL/LYTES - -- Monitor BUNs/creatinine Avoid nephrotoxic medication ENDO - ICU hyperglycemia protocol HEME - -- Monitor H&H ID - -- Multilobar pneumonia Predominant in the left lower lobe Continue with antibiotics for total of 5 days --Prophylaxis VTE: Heparin drip GI: Pantoprazole Lines: Peripheral Diet: Cardiac Plan: In/out: +883, urine output 475 Plan will be to discontinue nitroglycerin as well as heparin drip Continue with pain management with morphine and tramadol Continue with dual antiplatelet therapy along with lisinopril and pravastatin Continue with Rocephin for 5 days given given bilateral lower lobe pneumonia moderate predominant on the left side Magnesium being replaced Discussed with Cardiology. Disposition as per cardiology Case discussed with primary team Please note the above document was generated using voice recognition software. It may contain grammatical, syntax or spelling errors.Any formal questions or concerns about the content, text or information contained within the body of this dictation should be directly addressed to the provider for clarification. Admission and Anticipated Discharge Date Admission Date: June 29, 2024 Subjective Patient seen and examined at bedside. No acute distress, no adverse events overnight She was saturating 89-90% on room air while she was dozing off when I entered the room Denies any nausea vomiting Still complaining of chest pressure retrosternal, nonradiating Mild nausea after getting doxycycline Denied any headache, no dizziness Review of Systems 2 Review of Systems: All systems reviewed & are unremarkable except as noted in Subjective Physical Exam 2 Physical Exam: Constitutional: No acute distress HEENT: EOMI, PERRLA Respiratory system: Decreased air entry bilaterally, no wheeze, no rhonchi, no crackles CVS: S1-S2 positive, no murmurs or gallops, distant heart sounds Abdomen: Soft, nontender, nondistended, positive bowel sounds x4, obese Extremities: +2 pulses bilaterally radialis/ dorsalis pedis, no cyanosis, no edema Neuro: Awake alert oriented x3 Psych: Normal mood and affect G/U: No Nails Skin: no rashes, warm and dry Lymphatic: no cervical or axillary lymphadenopathy Results & Data Results & Data Vital Signs (Past 12 Hours) Vital Signs Pulse Resp BP Pulse Ox O2 Del Method O2 Flow Rate 07/03/24 05:03 79 18 96 07/03/24 05:00 110/57 L 07/03/24 04:51 93 H 14 98 07/03/24 04:30 80 15 94 07/03/24 04:30 112/64 07/03/24 04:30 112/64 07/03/24 04:30 112/64 07/03/24 04:09 78 13 98 07/03/24 03:25 79 18 98 2 07/03/24 03:15 81 20 97 07/03/24 03:03 79 18 95 07/03/24 03:00 103/59 L 07/03/24 03:00 103/59 L 07/03/24 03:00 103/59 L 07/03/24 02:45 79 19 94 07/03/24 02:30 100/79 07/03/24 02:30 100/79 07/03/24 02:30 100/79 07/03/24 02:21 80 20 96 07/03/24 02:15 80 15 94 07/03/24 02:00 108/71 07/03/24 02:00 108/71 07/03/24 02:00 108/71 07/03/24 01:51 89 19 92 07/03/24 01:30 114/73 07/03/24 01:30 114/73 07/03/24 01:21 82 15 96 07/03/24 01:00 84 21 96 07/03/24 01:00 117/66 07/03/24 01:00 117/66 07/03/24 00:00 108/62 07/03/24 00:00 108/62 07/03/24 00:00 85 07/03/24 00:00 108/62 07/03/24 00:00 108/62 07/03/24 00:00 108/62 07/03/24 00:00 87 18 96 07/02/24 23:30 100/59 L 07/02/24 23:30 100/59 L 07/02/24 23:27 85 17 95 07/02/24 23:24 89 20 96 07/02/24 23:00 102/68 07/02/24 22:51 86 18 98 07/02/24 22:39 89 14 95 2 07/02/24 22:31 117/66 07/02/24 22:24 89 20 97 07/02/24 22:06 88 25 H 94 07/02/24 22:00 122/64 07/02/24 21:52 116/70 07/02/24 21:51 83 20 95 07/02/24 21:30 103/60 07/02/24 21:27 89 22 93 07/02/24 21:21 88 31 H 89 L 07/02/24 21:00 102/63 07/02/24 20:30 85 19 92 07/02/24 20:30 103/61 07/02/24 20:30 103/61 07/02/24 20:00 86 20 94 07/02/24 20:00 101/61 07/02/24 19:30 Nasal Cannula 3 Laboratory Results 07/03/24 04:47 07/03/24 04:47 Coding Level of Care Code 98989 SUB INP/OBS CARE 3/50MIN Diagnoses Non-ST elevation RI (NSTEMI) I21.4 Coronary artery dissection I25.42 Essential hypertension I10 Hypertension type: essential hypertension GERD (gastroesophageal reflux disease) K21.9 Sleep apnea G47.30 (3) HTN (hypertension) Hypertension type: essential hypertension Qualified Code(s): I10 - Essential (primary) hypertension
[2024-07-03] MEDS: traMADol HCL 50 MG TABLET PO PRN (08:00)
[2024-07-03] MEDS: CLOPIDOGREL BISULFATE 75 MG TAB PO SCH (08:02)
--- NOTE | 2024-07-03 11:18 | Cardiology Progress Note ---
Date of Service July 03, 2024 Assessment & Plan (1) NSTEMI (non-ST elevated myocardial infarction): Plan NSTEMI Nausea, vomiting, diarrhea Nonocclusive CAD (per CATH 2013) Coronary artery calcification on CT PAF s/p PVI ablation Hx pericarditis EUSEBIA on CPAP obesity 3.5cm thoracic aortic aneurysm -Patient remains chest pain free. -Troponin mildly elevated. No repeat completed. Ordered and currently pending. -EKG without acute changes. -Continue heparin drip -ECHO yesterday with preserved LVEF with apical, septal and anteroseptal WMA -CT chest with significant amount of multivessel calcification -Plan for inpatient cardiac CATH tomorrow. NPO after midnight. 07/02/2024 69-year-old female with presented with initially symptoms of gastroenteritis followed by symptoms consistent with prior angina pectoris with classic viselike chest pressure pain and discomfort. Troponin elevation consistent with non-ST segment elevation myocardial infarction with wall motion abnormality noted on echocardiogram. Patient undergo cardiac catheterization today. Procedure and risks explained in detail to the patient informed consent obtained. Cardiac catheterization demonstrated two-vessel significant coronary disease with long area of 60 to 70% stenosis in the mid left anterior descending hemodynamically significant as well as a large caliber high marginal branch with 90% proximal stenosis hazy and likely culprit. Patient referred for two-vessel coronary intervention. See procedural report 07/03/2024 1. Non-ST segment elevation myocardial infarction: Cardiac catheterization demonstrated two-vessel coronary artery disease as above. Patient underwent intervention to the mid left anterior descending with long stent with excellent result. Left circumflex obtuse marginal with proximal stenosis with good result with PCI but with distal vessel dissection. Second stent placed distally with small subbranch occlusion. Patient treated overnight with IV heparin and IV nitroglycerin. No arrhythmias on telemetry. Plan: Discontinue IV heparin and IV nitroglycerin. Begin isosorbide mononitrate 30 mg p.o. daily. Continue metoprolol succinate 12.5 mg twice per day Continue lisinopril, pravastatin as ordered. No further diltiazem at this time EKG today May transfer to PCU as bed available Begin to increase activities Observe on telemetry additional day Admission and Anticipated Discharge Date Admission Date: June 29, 2024 Subjective Patient seen and personally examined, chart, medications, telemetry reviewed. Still with nagging left substernal chest pain. No pleuritic component. Symptoms are improving. No productive cough. No nausea or diarrhea. No bleeding issues on anticoagulation. Review of Systems Review of Systems: All systems reviewed & are unremarkable except as noted in Subjective Physical Exam Constitutional: WD/WN, vitals as above + obese Eyes: PERRL, conjunctivae normal, anicteric sclerae ENMT: Mallampati Class: III Neck: normal visual inspection Respiratory: normal respiratory effort, lungs clear to auscultation Cardiovascular: RRR, no murmur, no edema Vessels: normal carotid upstroke and radial pulses present (Right radial access site healing well); no JVD Extremities: + edema (Trace) Gastrointestinal (Abdomen): Percussion/Palpation: abdomen soft; abdomen nontender Skin: no rashes, warm and dry Psychiatric: A+Ox3, euthymic affect Results & Data Vital Signs (Past 12 Hours) Vital Signs Temp Pulse Resp BP Pulse Ox O2 Del Method O2 Flow Rate 07/03/24 10:00 75 16 93 07/03/24 10:00 120/78 07/03/24 09:31 123/67 07/03/24 09:27 83 18 91 07/03/24 09:12 81 16 88 L 07/03/24 08:00 81 19 91 Room Air 07/03/24 08:00 127/61 07/03/24 08:00 37.0 C 07/03/24 07:30 104/58 L 07/03/24 07:03 78 13 93 07/03/24 07:00 113/62 07/03/24 05:03 79 18 96 07/03/24 05:00 110/57 L 07/03/24 04:51 93 H 14 98 07/03/24 04:30 80 15 94 07/03/24 04:30 112/64 07/03/24 04:30 112/64 07/03/24 04:30 112/64 07/03/24 04:09 78 13 98 07/03/24 03:25 79 18 98 2 07/03/24 03:15 81 20 97 07/03/24 03:03 79 18 95 07/03/24 03:00 103/59 L 07/03/24 03:00 103/59 L 07/03/24 03:00 103/59 L 07/03/24 02:45 79 19 94 07/03/24 02:30 100/79 07/03/24 02:30 100/79 07/03/24 02:30 100/79 07/03/24 02:21 80 20 96 07/03/24 02:15 80 15 94 07/03/24 02:00 108/71 07/03/24 02:00 108/71 07/03/24 02:00 108/71 07/03/24 01:51 89 19 92 07/03/24 01:30 114/73 07/03/24 01:30 114/73 07/03/24 01:21 82 15 96 07/03/24 01:00 84 21 96 07/03/24 01:00 117/66 07/03/24 01:00 117/66 07/03/24 00:00 108/62 07/03/24 00:00 108/62 07/03/24 00:00 85 07/03/24 00:00 108/62 07/03/24 00:00 108/62 07/03/24 00:00 108/62 07/03/24 00:00 87 18 96 07/02/24 23:30 100/59 L 07/02/24 23:30 100/59 L 07/02/24 23:27 85 17 95 07/02/24 23:24 89 20 96 Laboratory Results Laboratory Results - last 24 hr 07/02/24 07/02/24 07/02/24 14:10 14:42 15:16 WBC RBC Hgb Hct MCV MCH MCHC RDW Std Deviation RDW Coeff of Emma Plt Count MPV Activ Coag Time Kaolin 262 H 256 H 285 H Heparin Anti-Xa, Unfract Sodium Potassium Chloride Carbon Dioxide Anion Gap BUN Creatinine Est Cr Clr Drug Dosing eGFR BUN/Creatinine Ratio Glucose Calcium Phosphorus Magnesium 07/02/24 07/03/24 21:52 04:47 WBC 14.03 H RBC 3.63 L Hgb 10.1 L Hct 31.4 L MCV 86.5 MCH 27.8 MCHC 32.2 RDW Std Deviation 42.8 RDW Coeff of Emma 13.8 Plt Count 299 MPV 9.4 Activ Coag Time Kaolin Heparin Anti-Xa, Unfract 0.12 L 0.12 L Sodium 135 L Potassium 4.2 Chloride 94 L Carbon Dioxide 33 H Anion Gap 8 BUN 22 Creatinine 0.75 Est Cr Clr Drug Dosing 82.3 eGFR 87.21 BUN/Creatinine Ratio 29.3 H Glucose 123 H Calcium 9.4 Phosphorus 5.0 H Magnesium 1.7
[2024-07-03] MEDS: ISOSORBIDE MONO EXTENDED REL 30 MG TABCR PO SCH (11:37)
--- NOTE | 2024-07-03 14:04 | Hospitalist Progress Note ---
Date of Service July 03, 2024 Assessment & Plan (1) NSTEMI (non-ST elevated myocardial infarction): Plan: NSTEMI H/O Nonocclusive CAD --Chest CTA:No thoracic aortic dissection. Aneurysmal dilatation of the mid descending thoracic aorta measuring 3.6 cm, slightly increased since CT of June 21, 2023. Mild alveolar opacities within the lower lobes suggestive of an infectious process. Cardiomegaly. -- Elevated troponin --Normal TSH --Echo: EF 55 to 60%. Right ventricle is mildly dilated. Right ventricular systolic pressure is normal. No significant valvular disease. Moderate sized apical, septal, anteroseptal wall motion abnormality with hypokinesis of the segments. --HbA1c 5.9 -- Total cholesterol 222, triglycerides 184, LDL 144 --S/P cardiac catheterization and PCI: Successful PCI of proximal to mid LAD with single drug-eluting stent. Procedure complicated by mid OM1 dissection treated with additional MIRIAM (2.25 x 15 [place]). Residual dissection/no reflow in medial, distal branch of OM1 downstream from stents. -- IV heparin, IV nitroglycerin discontinued --Continue aspirin, Plavix, metoprolol, isosorbide, lisinopril, statin --Diltiazem discontinued Appreciate cardiology, critical care input Plan downgrade to PCU today Multifocal ed pneumonia--POA Reports chronic cough due to COPD --CTA:Mild alveolar opacities within the lower lobes suggestive of an infectious process --Normal procalcitonin --BioFire negative --Blood cultures-negative to date- Continue Rocephin, doxycycline Hyperlipidemia H/O atorvastatin intolerance Continue pravastatin Gastroenteritis --CT ABD: No acute process is identified in the abdomen and pelvis. Chronic findings include a 3.5 cm descending thoracic aortic aneurysm and a fat- containing ventral hernia just above the umbilicus. This hernia has increased from 3 to 4 cm since the prior study. --Stool studies pending --Tolerating current diet Thoracic aortic aneurysm Incidental finding on CT Advised to follow-up as outpatient Morbid obesity BMI 42 Paroxysmal atrial fibrillation S/P ablation, post ablation pericarditis Continue Cardizem GERD Continue PPI RLS On ropinirole as needed Hypertension Continue current medications Monitor COPD Chronic cough No signs of exacerbation Continue home medications EUSEBIA on CPAP Prediabetes HbA1c 5.9 H/O Endometrial cancer S/P surgery DVT Px: Heparin ggt discontinued today SCDs Code Status Full Code Admission and Anticipated Discharge Date Admission Date: June 29, 2024 Subjective Patient is seen and examined at bedside Reports left substernal chest pain, sometimes pleuritic in nature Also reports nausea today Less cough today No other complaints Plan to downgrade to PCU today Review of Systems Review of Systems: All systems reviewed & are unremarkable except as noted in Subjective Physical Exam Physical Exam: Physical Exam: Vitals signs as noted above General Appearance:Morbidly Obese, no apparent distress Head: normocephalic, Atraumatic Eyes: normal inspection, EOMI Neck: supple, Trachea midline Respiratory/Chest: Normal breath sounds, CTA, No accessory muscle use Cardiovascular: S1, S2, no murmur Abdomen/GI:Soft, non tender, Bowel sounds present Extremities/Musculoskeletal:normal inspection, no edema Neurologic/Psych:AAOX3, grossly no focal neurological deficits Skin: normal color, warm Results & Data Results & Data Vital Signs (Past 12 Hours) Vital Signs Temp Pulse Resp BP Pulse Ox O2 Del Method O2 Flow Rate 07/03/24 12:19 36.9 C 07/03/24 12:00 75 20 96 CPAP 07/03/24 11:47 122/69 07/03/24 11:03 80 18 100 07/03/24 11:01 106/68 07/03/24 10:00 75 16 93 07/03/24 10:00 120/78 07/03/24 09:31 123/67 07/03/24 09:27 83 18 91 07/03/24 09:12 81 16 88 L 07/03/24 08:00 81 19 91 Room Air 07/03/24 08:00 127/61 07/03/24 08:00 37.0 C 07/03/24 07:30 104/58 L 07/03/24 07:03 78 13 93 07/03/24 07:00 113/62 07/03/24 05:03 79 18 96 07/03/24 05:00 110/57 L 07/03/24 04:51 93 H 14 98 07/03/24 04:30 80 15 94 07/03/24 04:30 112/64 07/03/24 04:30 112/64 07/03/24 04:30 112/64 07/03/24 04:09 78 13 98 07/03/24 03:25 79 18 98 2 07/03/24 03:15 81 20 97 07/03/24 03:03 79 18 95 07/03/24 03:00 103/59 L 07/03/24 03:00 103/59 L 07/03/24 03:00 103/59 L 07/03/24 02:45 79 19 94 07/03/24 02:30 100/79 07/03/24 02:30 100/79 07/03/24 02:30 100/79 07/03/24 02:21 80 20 96 07/03/24 02:15 80 15 94 07/03/24 02:00 108/71 07/03/24 02:00 108/71 07/03/24 02:00 108/71 Laboratory Results Short CBC 07/03/24 Range/Units 04:47 WBC 14.03 H (4.8-10.8) K/ul Hgb 10.1 L (12.0-16.0) g/dl Hct 31.4 L (37.0-47.0) % Plt Count 299 (130-400) K/uL BMP 07/03/24 04:47 Sodium 135 L Potassium 4.2 Chloride 94 L Carbon Dioxide 33 H BUN 22 Creatinine 0.75 Glucose 123 H Calcium 9.4
--- NOTE | 2024-07-03 15:40 | Electrocardiogram Report ---
Test Reason : Blood Pressure : */* mmHG Vent. Rate : 78 BPM Atrial Rate : 78 BPM P-R Int : 176 ms QRS Dur : 88 ms QT Int : 382 ms P-R-T Axes : 42 19 -22 degrees QTcB Int : 435 ms Normal sinus rhythm Anterior infarct (cited on or before 30-Jun-2024) Abnormal ECG When compared with ECG of 30-Jun-2024 06:13, Significant changes have occurred Confirmed by Codey Bueno ([id number]) on 07/03/2024 3:40:12 PM Referred By: REFERRED SELF Confirmed By: Codey Bueno
--- NOTE | 2024-07-03 16:20 | Electrocardiogram Report ---
Test Reason : Blood Pressure : */* mmHG Vent. Rate : 75 BPM Atrial Rate : 75 BPM P-R Int : 178 ms QRS Dur : 94 ms QT Int : 378 ms P-R-T Axes : 85 65 37 degrees QTcB Int : 422 ms Normal sinus rhythm Nonspecific ST and T wave abnormality Abnormal ECG When compared with ECG of 02-Jul-2024 15:57, (unconfirmed) ST no longer depressed in Lateral leads T wave inversion no longer evident in Inferior leads T wave inversion less evident in Anterior leads Nonspecific T wave abnormality now evident in Lateral leads Confirmed by Codey Bueno ([id number]) on 07/03/2024 4:19:35 PM Referred By: REFERRED SELF Confirmed By: Codey Bueno
[2024-07-04 06:09] LABS: Hemoglobin 9.5 g/dl (12.0-16.0); Mean Corpuscular Hemoglobin 27.1 pg (25.0-34.0); Mean Corpuscular Hgb Conc 31.7 g/dL (32.0-36.0); Mean Corpuscular Volume 85.7 fL (80.0-100.0); Mean Platelet Volume 9.7 fL (9.4-12.4); Platelet Count 291 K/uL (130-400); RDW Coefficient of Variation 14.1 % (11.5-14.5); RDW Standard Deviation 43.5 fL (36.4-46.3); White Blood Count 18.12 K/ul (4.8-10.8)
[2024-07-04 06:17] LABS: Calcium 9.1 mg/dl (8.6-10.3); Creatinine Clr Calc Pharmacy 83.1 ml/min; Phosphorus 4.4 mg/dl (2.5-4.9); Potassium 4.5 mmol/L (3.5-5.1)
--- NOTE | 2024-07-04 11:12 | Hospitalist Progress Note ---
Date of Service July 04, 2024 Assessment & Plan (1) NSTEMI (non-ST elevated myocardial infarction): Plan: NSTEMI H/O Nonocclusive CAD --Chest CTA:No thoracic aortic dissection. Aneurysmal dilatation of the mid descending thoracic aorta measuring 3.6 cm, slightly increased since CT of June 21, 2023. Mild alveolar opacities within the lower lobes suggestive of an infectious process. Cardiomegaly. -- Elevated troponin --Normal TSH --Echo: EF 55 to 60%. Right ventricle is mildly dilated. Right ventricular systolic pressure is normal. No significant valvular disease. Moderate sized apical, septal, anteroseptal wall motion abnormality with hypokinesis of the segments. --HbA1c 5.9 -- Total cholesterol 222, triglycerides 184, LDL 144 --S/P cardiac catheterization and PCI: Successful PCI of proximal to mid LAD w ith single drug-eluting stent. Procedure complicated by mid OM1 dissection treated with additional MIRIAM (2.25 x 15 [place]). Residual dissection/no reflow in medial, distal branch of OM1 downstream from stents. -- IV heparin, IV nitroglycerin discontinued --Continue aspirin, Plavix, metoprolol, isosorbide, lisinopril, statin --Diltiazem discontinued Appreciate cardiology, critical care input Downgraded to PCU yesterday 07/03 07/04 Today reports feeling somewhat worse, reports chest pressure - discussed w/ cardiology - plan to obtain echo today Multifocal ed pneumonia--POA Reports chronic cough due to COPD --CTA:Mild alveolar opacities within the lower lobes suggestive of an infectious process --Normal procalcitonin --BioFire negative --Blood cultures-negative to date- Continue Rocephin, doxycycline (doxy re-ordered as not seen ordered now) Pt febrile 38.2C last night, WBC up at 18K this AM sputum cultx ordered Hyperlipidemia H/O atorvastatin intolerance Continue pravastatin Gastroenteritis --CT ABD: No acute process is identified in the abdomen and pelvis. Chronic findings include a 3.5 cm descending thoracic aortic aneurysm and a fat- containing ventral hernia just above the umbilicus. This hernia has increased fr om 3 to 4 cm since the prior study. --Stool studies pending --Tolerating current diet Thoracic aortic aneurysm Incidental finding on CT Advised to follow-up as outpatient Morbid obesity BMI 42 Paroxysmal atrial fibrillation S/P ablation, post ablation pericarditis Cardizem stopped -> metoprolol, cardiology following closely GERD Continue PPI RLS On ropinirole as needed Hypertension Continue current medications Monitor COPD Chronic cough No signs of exacerbation Continue home medications EUSEB[place] on CPAP Prediabetes HbA1c 5.9 H/O Endometrial cancer S/P surgery hysterectomy in 02/2025 DVT Px: Heparin ggt discontinued SCDs Code Status Full Code Admission and Anticipated Discharge Date Admission Date: June 29, 2024 Subjective Pt seen in follow up Currently lying in bed in NAD however reports some chest pressure No fever, chills, has some cough on and off says that's chronic. Denies any significant abd. pain at this time. Discussed w/ Dr. Felix - cardiology - plans to check echo today Febrile last night 38.2C. Pt is on rocephin, blood cultx negat. for 48 hrs. Per note pt on doxy but not ordered - re-ordered now. sputum cultx ordered Review of Systems Review of Systems: All systems reviewed & are unremarkable except as noted in Subjective Physical Exam Physical Exam: General Appearance:Morbidly Obese F Head: normocephalic, Atraumatic Eyes: normal inspection, EOMI Neck: supple Respiratory/Chest: decreased breath sounds,No accessory muscle use Cardiovascular: decreased heart sounds, no murmur noted Abdomen/GI:Soft, non tender, Bowel sounds present Extremities/Musculoskeletal:normal inspection, no edema Neurologic/Psych:AAOX3, grossly no focal neurological deficits Skin: normal color, warm Results & Data Results & Data Vital Signs (Past 12 Hours) Vital Signs Temp Pulse Pulse Resp BP Pulse Ox O2 Del Method 07/04/24 10:34 Room Air 07/04/24 08:03 37.4 C 90 20 106/68 89 L Room Air 07/04/24 07:18 80 07/04/24 03:03 37.6 C H 82 19 100/65 95 CPAP, Nasal CPAP 07/04/24 02:30 81 21 94 07/04/24 00:00 103 H O2 Flow Rate 07/04/24 10:34 07/04/24 08:03 07/04/24 07:18 07/04/24 03:03 07/04/24 02:30 2 07/04/24 00:00 Laboratory Results 07/04/24 07/03/24 Range/Units 05:37 11:21 WBC 18.12 H (4.8-10.8) K/ul RBC 3.50 L (4.20-5.40) M/uL Hgb 9.5 L (12.0-16.0) g/dl Hct 30.0 L (37.0-47.0) % MCV 85.7 (80.0-100.0) fL MCH 27.1 (25.0-34.0) pg MCHC 31.7 L (32.0-36.0) g/dL RDW Std Deviation 43.5 (36.4-46.3) fL RDW Coeff of Emma 14.1 (11.5-14.5) % Plt Count 291 (130-400) K/uL MPV 9.7 (9.4-12.4) fL Sodium 133 L (136-145) mmol/L Potassium 4.5 (3.5-5.1) mmol/L Chloride 95 L (98-107) mmol/L Carbon Dioxide 34 H (21-32) mmol/L Anion Gap 4 (3-11) BUN 20 (6-23) mg/dl Creatinine 0.74 (0.6-1.2) mg/dl Est Cr Clr Drug Dosing 83.1 ml/min eGFR 88.62 BUN/Creatinine Ratio 27.0 H (10-20) Glucose 110 H (70-99(Fasting)) mg/dl POC Glucose 144 H (70-99) mg/dl Calcium 9.1 (8.6-10.3) mg/dl Phosphorus 4.4 (2.5-4.9) mg/dl Magnesium 2.0 (1.7-2.4) mg/dl Medications Administered Current Inpatient Medications Acetaminophen (Acetaminophen 325 Mg Tab) 650 mg PO QID PRN PRN Reason: pain/fever Stop: 07/29/24 20:32 Last Admin: 07/01/24 20:08 Dose: 650 mg Al Hydrox/Mg Hydrox/Simethicone (Aluminum/Magnesium/Simeth (Maalox Max) 30 Ml Udc) 15 ml PO Q6H PRN PRN Reason: Dyspepsia Stop: 07/31/24 12:46 Aspirin (Aspirin 81 Mg Ectab) 81 mg PO DAILY [place] Stop: 07/30/24 08:59 Last Admin: 07/04/24 09:06 Dose: 81 mg Clobetasol Propionate (Clobetasol Propionate 0.05% Oint 15 Gm Tube) 1 appln EXT DAILY [facility] Stop: 07/30/24 16:29 Last Admin: 07/04/24 09:09 Dose: 1 appln Clopidogrel Bisulfate (Clopidogrel Bisulfate 75 Mg Tab) 75 mg PO QAM [facility] Stop: 08/02/24 08:59 Last Admin: 07/04/24 09:06 Dose: 75 mg Ferrous Sulfate (Ferrous Sulfate 325 Mg Tab) 325 mg PO DAILY [place] Stop: 07/30/24 08:59 Last Admin: 07/04/24 09:07 Dose: 325 mg Fluticasone Furoate (Fluticasone Furoate 100mcg 14 Puffs/Inhaler) 1 puffs INH DAILY [facility] Stop: 07/31/24 13:44 Last Admin: 07/04/24 09:05 Dose: 1 puffs Gabapentin (Gabapentin 100 Mg Cap) 100 mg PO BID [facility] Stop: 07/29/24 20:59 Last Admin: 07/04/24 09:06 Dose: 100 mg Gabapentin (Gabapentin 100 Mg Cap) 200 mg PO QDL [facility] Stop: 07/30/24 11:29 Last Admin: 07/03/24 11:33 Dose: 200 mg Promethazine HCl (Phenergan) 6.25 mg in 50.25 mls @ 201 mls/hr IV Q6H PRN PRN Reason: Nausea And Vomiting Stop: 07/29/24 20:30 Last Infusion: 07/03/24 12:16 Dose: Infused Ceftriaxone Sodium (Rocephin) 2,000 mg in 50 mls @ 100 mls/hr IV Q24H [facility] Stop: 07/06/24 12:29 Last Infusion: 07/03/24 12:16 Dose: Infused Isosorbide Mononitrate (Isosorbide [place] Extended Rel 30 Mg Tabcr) 30 mg PO QAM [facility] Stop: 08/02/24 11:29 Last Admin: 07/03/24 11:37 Dose: 30 mg Lisinopril (Lisinopril 20 Mg Tab) 20 mg PO DAILY [facility] Stop: 07/30/24 08:59 Last Admin: 07/04/24 09:07 Dose: 20 mg Lorazepam (Lorazepam 0.5 Mg Tab) 0.5 mg PO TID PRN PRN Reason: Anxiety Stop: 07/29/24 20:31 Metoprolol Succinate (Metoprolol Succ 25mg Ext Rel Tab) 12.5 mg PO BID [facility] Stop: 08/01/24 20:59 Last Admin: 07/04/24 09:08 Dose: 12.5 mg Montelukast Sodium (Montelukast Sodium 10 Mg Tablet) 10 mg PO QAM [facility] Stop: 07/30/24 08:59 Last Admin: 07/04/24 09:07 Dose: 10 mg Morphine Sulfate (Morphine Sulfate 4 Mg/Ml 1 Ml [place]\Vial) 2 mg IV Q4H PRN PRN Reason: Pain Stop: 07/13/24 20:31 Last Admin: 07/03/24 05:51 Dose: 2 mg [facility]ivitamins ([facility]ivitamin Tab) [facility] Stop: 07/30/24 08:59 Last Admin: 07/04/24 09:06 Dose: 1 tab Nitroglycerin (Nitroglycerin Sl 0.4 Mg/Tab Tab) 0.4 mg SL Q5M PRN PRN Reason: Chest Pain Stop: 07/29/24 20:30 Pantoprazole Sodium (Pantoprazole 40 Mg Tab) 40 mg PO [facility] Stop: 07/30/24 08:59 Last Admin: 07/04/24 09:07 Dose: 40 mg Pravastatin Sodium (Pravastatin Sod 40 Mg Tab) 40 mg PO DAILY@1700 [facility] Stop: 07/30/24 16:59 Last Admin: 07/03/24 16:24 Dose: 40 mg Ropinirole HCl (Ropinirole Hcl 0.25 Mg Tablet) 0.25 mg PO HS PRN PRN Reason: restless leg syndrome Stop: 07/29/24 20:29 Last Admin: 07/01/24 20:33 Dose: 0.25 mg Sodium Chloride (Sodium Chloride 0.65% Na Soln 45 Ml ([place])) 2 sprays NA PRN PRN PRN Reason: Dryness Stop: 07/31/24 07:58 Last Admin: 07/01/24 13:28 Dose: 2 sprays Tramadol HCl (Tramadol Hcl 50 Mg Tablet) 25 - 50 mg PO Q4H PRN PRN Reason: Pain Stop: 07/29/24 20:30 Last Admin: 07/04/24 09:03 Dose: 50 mg
--- NOTE | 2024-07-04 11:39 | Cardiology Progress Note ---
Date of Service July 04, 2024 Assessment & Plan (1) NSTEMI (non-ST elevated myocardial infarction): Plan NSTEMI Nausea, vomiting, diarrhea Nonocclusive CAD (per CATH 2013) Coronary artery calcification on CT PAF s/p PVI ablation Hx pericarditis [place] on CPAP obesity 3.5cm thoracic aortic aneurysm -Patient remains chest pain free. -Troponin mildly elevated. No repeat completed. Ordered and currently pending. -EKG without acute changes. -Continue heparin drip -ECHO yesterday with preserved LVEF with apical, septal and anteroseptal WMA -CT chest with significant amount of multivessel calcification -Plan for inpatient cardiac CATH tomorrow. NPO after midnight. 07/02/2024 69-year-old female with presented with initially symptoms of gastroenteritis followed by symptoms consistent with prior angina pectoris with classic viselike chest pressure pain and discomfort. Troponin elevation consistent with non-ST segment elevation myocardial infarction with wall motion abnormality noted on echocardiogram. Patient undergo cardiac catheterization today. Procedure and risks explained in detail to the patient informed consent obtained. Cardiac catheterization demonstrated two-vessel significant coronary disease with long area of 60 to 70% stenosis in the mid left anterior descending hemodynamically significant as well as a large caliber high marginal branch with 90% proximal stenosis hazy and likely culprit. Patient referred for two-vessel coronary intervention. See procedural report 07/03/2024 1. Non-ST segment elevation myocardial infarction: Cardiac catheterization demonstrated two-vessel coronary artery disease as above. Patient underwent intervention to the mid left anterior descending with long stent with excellent result. Left circumflex obtuse marginal with proximal stenosis with good result with PCI but with distal vessel dissection. Second stent placed distally with small subbranch occlusion. Patient treated overnight with IV heparin and IV nitroglycerin. No arrhythmias on telemetry. Plan: Discontinue IV heparin and IV nitroglycerin. Begin isosorbide mononitrate 30 mg p.o. daily. Continue metoprolol succinate 12.5 mg twice per day Continue lisinopril, pravastatin as ordered. No further diltiazem at this time EKG today May transfer to PCU as bed available Begin to increase activities Observe on telemetry additional day 07/04/2024 Patient continues to experience nausea and malaise as well as chest wall pain and tenderness. Now 2 days post coronary invention and post procedure infarct. Plan: Echocardiogram to reassess LV function, exclude pericardial effusion Increase metoprolol succinate Continue dual antiplatelet therapy Will hold isosorbide given headache Continue to monitor Admission and Anticipated Discharge Date Admission Date: June 29, 2024 Subjective Patient was seen and personally examined. Chart, medications, telemetry reviewed. "Not feeling just as well this morning nausea, chest wall tenderness " Admits to headache. No nausea or vomiting. Still with lower abdominal tenderness. Using BiPAP when sleeping Review of Systems Review of Systems: All systems reviewed & are unremarkable except as noted in Subjective Physical Exam Constitutional: WD/WN, vitals as above + obese Eyes: PERRL, conjunctivae normal, anicteric sclerae ENMT: Mallampati Class: III Neck: normal visual inspection Respiratory: normal respiratory effort, lungs clear to auscultation Cardiovascular: RRR, no murmur, no edema Vessels: normal carotid upstroke and radial pulses present (Right radial access site healing well); no JVD Extremities: + edema (Trace) Gastrointestinal (Abdomen): Percussion/Palpation: abdomen soft; abdomen nontender Skin: no rashes, warm and dry Psychiatric: A+Ox3, euthymic affect Results & Data Vital Signs (Past 12 Hours) Vital Signs Temp Pulse Pulse Resp BP Pulse Ox O2 Del Method 07/04/24 10:34 Room Air 07/04/24 08:03 37.4 C 90 20 106/68 89 L Room Air 07/04/24 07:18 80 07/04/24 03:03 37.6 C H 82 19 100/65 95 CPAP, Nasal CPAP 07/04/24 02:30 81 21 94 07/04/24 00:00 103 H O2 Flow Rate 07/04/24 10:34 07/04/24 08:03 07/04/24 07:18 07/04/24 03:03 07/04/24 02:30 2 07/04/24 00:00 Laboratory Results Laboratory Results - last 24 hr 07/04/24 05:37 WBC 18.12 H RBC 3.50 L Hgb 9.5 L Hct 30.0 L MCV 85.7 MCH 27.1 MCHC 31.7 L RDW Std Deviation 43.5 RDW Coeff of Emma 14.1 Plt Count 291 MPV 9.7 Sodium 133 L Potassium 4.5 Chloride 95 L Carbon Dioxide 34 H Anion Gap 4 BUN 20 Creatinine 0.74 Est Cr Clr Drug Dosing 83.1 eGFR 88.62 BUN/Creatinine Ratio 27.0 H Glucose 110 H Calcium 9.1 Phosphorus 4.4 Magnesium 2.0
[2024-07-04] MEDS: guaiFENesin 600 MG TABCR PO SCH (13:27)
[2024-07-04] MEDS: DOXYCYCLINE HYCLATE 100 MG in DEXTROSE 5% MINI-B 100 ML IV SCH (13:27)
[2024-07-04] MEDS: METOPROLOL SUCC 50MG EXT REL TAB PO ONE (15:20)
[2024-07-04] MEDS: 4.5GM X1 IV STA (18:41)
[2024-07-04 20:36] LABS: Hematocrit (blood only) 25.8 % (37.0-47.0); Hemoglobin 8.4 g/dl (12.0-16.0)
[2024-07-04] MEDS: SODIUM CHLORIDE 0.9% 250 ML IV ONE (20:37)
[2024-07-04] MEDS: METOPROLOL SUCC 25MG EXT REL TAB PO SCH (20:37)
--- NOTE | 2024-07-04 23:12 | XRay Report ---
Exam(s): XR CXR 2 VIEWS EXAM: XR Chest, 2 Views CLINICAL HISTORY: Reason for exam: fever, worsening resp. status. TECHNIQUE: Frontal and lateral views of the chest. COMPARISON: 07/01/24 FINDINGS: Lungs: Similar appearance of mild linear opacities at the left lung base favoring scarring/atelectasis. No airspace consolidation. Pleural space: No pleural effusion or pneumothorax. Heart: Stable heart size. Bones/joints: No acute fracture. No dislocation. Tubes, lines and devices: Loop recorder projects over the left chest. IMPRESSION: Similar appearance of mild linear opacities at the left lung base favoring scarring/atelectasis. Electronically signed by: Carolin Packer M.D. 07/04/24 23:10 PM
[2024-07-04] MEDS: PIPERACILLIN/TAZOBACTAM 4.5 GM/100 ML BAG IV SCH (23:25)
[2024-07-05] MEDS: SODIUM CHLORIDE 0.9% 250 ML IV ONE ×2 (03:33→19:36)
[2024-07-05 06:41] LABS: Hematocrit (blood only) 27.7 % (37.0-47.0); Hemoglobin 8.9 g/dl (12.0-16.0); Mean Corpuscular Hemoglobin 27.3 pg (25.0-34.0); Mean Corpuscular Hgb Conc 32.1 g/dL (32.0-36.0); Mean Platelet Volume 9.6 fL (9.4-12.4); Platelet Count 244 K/uL (130-400); RDW Coefficient of Variation 14.1 % (11.5-14.5); RDW Standard Deviation 43.5 fL (36.4-46.3); Red Blood Count 3.26 M/uL (4.20-5.40); White Blood Count 14.34 K/ul (4.8-10.8)
[2024-07-05 07:13] LABS: BUN Creatinine Ratio 25.5 (10-20); Calcium 8.7 mg/dl (8.6-10.3); Creatinine Clr Calc Pharmacy 62.7 ml/min; Magnesium 1.9 mg/dl (1.7-2.4); Phosphorus 4.6 mg/dl (2.5-4.9); Potassium 4.1 mmol/L (3.5-5.1)
--- NOTE | 2024-07-05 07:25 | Hospitalist Progress Note ---
Date of Service July 05, 2024 Assessment & Plan (1) NSTEMI (non-ST elevated myocardial infarction): Plan: NSTEMI H/O Nonocclusive CAD --Chest CTA:No thoracic aortic dissection. Aneurysmal dilatation of the mid descending thoracic aorta measuring 3.6 cm, slightly increased since CT of June 21, 2023. Mild alveolar opacities within the lower lobes suggestive of an infectious process. Cardiomegaly. -- Elevated troponin --Normal TSH --Echo: EF 55 to 60%. Right ventricle is mildly dilated. Right ventricular systolic pressure is normal. No significant valvular disease. Moderate sized apical, septal, anteroseptal wall motion abnormality with hypokinesis of the segments. --HbA1c 5.9 -- Total cholesterol 222, triglycerides 184, LDL 144 --S/P cardiac catheterization and PCI: Successful PCI of proximal to mid LAD w ith single drug-eluting stent. Procedure complicated by mid OM1 dissection treated with additional MIRIAM (2.25 x 15 [place]). Residual dissection/no reflow in medial, distal branch of OM1 downstream from stents. -- IV heparin, IV nitroglycerin discontinued --Continue aspirin, Plavix, metoprolol, isosorbide, lisinopril, statin --Diltiazem discontinued Appreciate cardiology, critical care input Downgraded to PCU yesterday 07/03 07/04 Today reports feeling somewhat worse, reports chest pressure - discussed w/ cardiology - plan to obtain echo today Echo obtained - unremarkable Multifocal ed pneumonia--POA Reports chronic cough due to COPD --CTA:Mild alveolar opacities within the lower lobes suggestive of an infectious process --Normal procalcitonin --BioFire negative --Blood cultures-negative to date- Continue Rocephin, doxycycline (doxy re-ordered as not seen ordered now) Pt febrile 38.2C last night, WBC up at 18K this AM (07/04) sputum cultx ordered 07/05 Pt is feeling better since zosyn started (07/04 evening). Fever better controlled, but still has some spikes of temp. WBC down to 14K Hyperlipidemia H/O atorvastatin intolerance Continue pravastatin Gastroenteritis --CT ABD: No acute process is identified in the abdomen and pelvis. Chronic findings include a 3.5 cm descending thoracic aortic aneurysm and a fat- containing ventral hernia just above the umbilicus. This hernia has increased from 3 to 4 cm since the prior study. --Stool studies pending --Tolerating current diet Thoracic aortic aneurysm Incidental finding on CT Advised to follow-up as outpatient Morbid obesity BMI 42 Paroxysmal atrial fibrillation S/P ablation, post ablation pericarditis Cardizem stopped -> metoprolol, cardiology following closely GERD Continue PPI RLS On ropinirole as needed Hypertension Continue current medications Monitor COPD Chronic cough No signs of exacerbation Continue home medications EUSEBIA on CPAP Prediabetes HbA1c 5.9 H/O Endometrial cancer S/P surgery hysterectomy in 04/2024 at [facility] DVT Px: Heparin ggt discontinued SCDs Code Status Full Code Admission and Anticipated Discharge Date Admission Date: June 29, 2024 Subjective Pt seen in follow up Currently lying in bed in NAD , + some chest pressure unchanged No fever, chills, has some cough on and off says that's chronic. Denies any significant abd. pain at this time. Cardiology following closelu Pt reports having hysterectomy on 04/30/2025, and cont. to have some abd. discomfort since the surgery Pt started on zosyn d/t being febrile Pt was on rocephin, blood cultx negat. for 48 hrs. sputum cultx ordered yesterday as well. Overall pt feels better today though Review of Systems Review of Systems: All systems reviewed & are unremarkable except as noted in Subjective Physical Exam Physical Exam: General Appearance:Morbidly Obese F Head: normocephalic, Atraumatic Eyes: normal inspection, EOMI Neck: supple Respiratory/Chest: decreased breath sounds,No accessory muscle use Cardiovascular: decreased heart sounds, no murmur noted Abdomen/GI:Soft, mildly tender to palp., Bowel sounds present Extremities/Musculoskeletal:normal inspection, no edema Neurologic/Psych:AAOX3, grossly no focal neurological deficits Skin: normal color, warm Results & Data Results & Data Vital Signs (Past 12 Hours) Vital Signs Temp Pulse Pulse Resp BP BP Pulse Ox 07/05/24 07:13 36.8 C 74 18 99/66 L 95 07/05/24 03:02 77 20 96 07/05/24 02:57 37.0 C 67 18 88/54 L 96 07/04/24 23:37 70 20 96 07/04/24 23:37 72 07/04/24 22:49 37.3 C 74 19 93/55 L 95 07/04/24 21:00 O2 Del Method O2 Flow Rate 07/05/24 07:13 CPAP 07/05/24 03:02 07/05/24 02:57 Nasal CPAP 07/04/24 23:37 2 07/04/24 23:37 07/04/24 22:49 CPAP, Nasal CPAP 07/04/24 21:00 Nasal Cannula, CPAP 2 Laboratory Results 07/05/24 07/04/24 07/04/24 Range/Units 06:16 Unknown 20:22 WBC 14.34 H (4.8-10.8) K/ul RBC 3.26 L (4.20-5.40) M/uL Hgb 8.9 L 8.4 L (12.0-16.0) g/dl Hct 27.7 L 25.8 L (37.0-47.0) % MCV 85.0 (80.0-100.0) fL MCH 27.3 (25.0-34.0) pg MCHC 32.1 (32.0-36.0) g/dL RDW Std Deviation 43.5 (36.4-46.3) fL RDW Coeff of Emma 14.1 (11.5-14.5) % Plt Count 244 (130-400) K/uL MPV 9.6 (9.4-12.4) fL Sodium 135 L (136-145) mmol/L Potassium 4.1 (3.5-5.1) mmol/L Chloride 96 L (98-107) mmol/L Carbon Dioxide 34 H (21-32) mmol/L Anion Gap 5 (3-11) BUN 25 H (6-23) mg/dl Creatinine 0.98 (0.6-1.2) mg/dl Est Cr Clr Drug Dosing 62.7 ml/min eGFR 63.26 BUN/Creatinine Ratio 25.5 H (10-20) Glucose 103 H (70-99(Fasting)) mg/dl Lactate 0.8 (0.4-2.0) mmol/L Calcium 8.7 (8.6-10.3) mg/dl Phosphorus 4.6 (2.5-4.9) mg/dl Magnesium 1.9 (1.7-2.4) mg/dl Procalcitonin (0-0.5) ng/ml Nasal Screen MRSA (PCR) Negative (Negative) 07/04/24 Range/Units 18:59 WBC (4.8-10.8) K/ul RBC (4.20-5.40) M/uL Hgb (12.0-16.0) g/dl Hct (37.0-47.0) % MCV (80.0-100.0) fL MCH (25.0-34.0) pg MCHC (32.0-36.0) g/dL RDW Std Deviation (36.4-46.3) fL RDW Coeff of Emma (11.5-14.5) % Plt Count (130-400) K/uL MPV (9.4-12.4) fL Sodium (136-145) mmol/L Potassium (3.5-5.1) mmol/L Chloride (98-107) mmol/L Carbon Dioxide (21-32) mmol/L Anion Gap (3-11) BUN (6-23) mg/dl Creatinine (0.6-1.2) mg/dl Est Cr Clr Drug Dosing ml/min eGFR BUN/Creatinine Ratio (10-20) Glucose (70-99(Fasting)) mg/dl Lactate (0.4-2.0) mmol/L Calcium (8.6-10.3) mg/dl Phosphorus (2.5-4.9) mg/dl Magnesium (1.7-2.4) mg/dl Procalcitonin 0.09 (0-0.5) ng/ml Nasal Screen MRSA (PCR) (Negative) Medications Administered Current Inpatient Medications Acetaminophen (Acetaminophen 325 Mg Tab) 650 mg PO QID PRN PRN Reason: pain/fever Stop: 07/29/24 20:32 Last Admin: 07/04/24 20:40 Dose: 650 mg Al Hydrox/Mg Hydrox/Simethicone (Aluminum/Magnesium/Simeth (Maalox Max) 30 Ml Udc) 15 ml PO Q6H PRN PRN Reason: Dyspepsia Stop: 07/31/24 12:46 Aspirin (Aspirin 81 Mg Ectab) 81 mg PO DAILY LINDSEY Stop: 07/30/24 08:59 Last Admin: 07/04/24 09:06 Dose: 81 mg Clobetasol Propionate (Clobetasol Propionate 0.05% Oint 15 Gm Tube) 1 appln EXT DAILY LINDSEY Stop: 07/30/24 16:29 Last Admin: 07/04/24 09:09 Dose: 1 appln Clopidogrel Bisulfate (Clopidogrel Bisulfate 75 Mg Tab) 75 mg PO QAM [facility] Stop: 08/02/24 08:59 Last Admin: 07/04/24 09:06 Dose: 75 mg Ferrous Sulfate (Ferrous Sulfate 325 Mg Tab) 325 mg PO DAILY [facility] Stop: 07/30/24 08:59 Last Admin: 07/04/24 09:07 Dose: 325 mg Fluticasone Furoate (Fluticasone Furoate 100mcg 14 Puffs/Inhaler) 1 puffs INH DAILY [facility] Stop: 07/31/24 13:44 Last Admin: 07/04/24 09:05 Dose: 1 puffs Gabapentin (Gabapentin 100 Mg Cap) 100 mg PO BID [facility] Stop: 07/29/24 20:59 Last Admin: 07/04/24 20:41 Dose: 100 mg Gabapentin (Gabapentin 100 Mg Cap) 200 mg PO QDL [facility] Stop: 07/30/24 11:29 Last Admin: 07/04/24 12:47 Dose: 200 mg Guaifenesin (Guaifenesin 600 Mg Tabcr) 600 mg PO Q12 [facility] Stop: 08/03/24 12:24 Last Admin: 07/04/24 20:42 Dose: 600 mg Promethazine HCl (Phenergan) 6.25 mg in 50.25 mls @ 201 mls/hr IV Q6H PRN PRN Reason: Nausea And Vomiting Stop: 07/29/24 20:30 Last Infusion: 07/03/24 12:16 Dose: Infused Doxycycline Hyclate 100 mg/ (Dextrose) 100 mls @ 50 mls/hr IV Q12H [facility] Stop: 07/09/24 13:59 Last Infusion: 07/05/24 05:57 Dose: Infused Piperacillin Sod/Tazobactam Sod (Zosyn) 4.5 gm in 100 mls @ 25 mls/hr IV Q8H [facility]; Protocol Stop: 07/07/24 00:00 Last Infusion: 07/05/24 04:17 Dose: Infused Isosorbide Mononitrate (Isosorbide Sampson Extended Rel 30 Mg Tabcr) 30 mg PO QAM [facility] Stop: 08/02/24 11:29 Last Admin: 07/04/24 12:46 Dose: 30 mg Lisinopril (Lisinopril 20 Mg Tab) 20 mg PO DAILY [facility] Stop: 07/30/24 08:59 Last Admin: 07/04/24 09:07 Dose: 20 mg Lorazepam (Lorazepam 0.5 Mg Tab) 0.5 mg PO TID PRN PRN Reason: Anxiety Stop: 07/29/24 20:31 Metoprolol Succinate (Metoprolol Succ 25mg Ext Rel Tab) 25 mg PO BID [facility] Stop: 08/03/24 20:59 Last Admin: 07/04/24 20:37 Dose: Not Given Montelukast Sodium (Montelukast Sodium 10 Mg Tablet) 10 mg PO QAM [facility] Stop: 07/30/24 08:59 Last Admin: 07/04/24 09:07 Dose: 10 mg Morphine Sulfate (Morphine Sulfate 4 Mg/Ml 1 Ml Carp\Vial) 2 mg IV Q4H PRN PRN Reason: Pain Stop: 07/13/24 20:31 Last Admin: 07/03/24 05:51 Dose: 2 mg Multivitamins (Multivitamin Tab) 1 tab PO QAM [facility] Stop: 07/30/24 08:59 Last Admin: 07/04/24 09:06 Dose: 1 tab Nitroglycerin (Nitroglycerin Sl 0.4 Mg/Tab Tab) 0.4 mg SL Q5M PRN PRN Reason: Chest Pain Stop: 07/29/24 20:30 Pantoprazole Sodium (Pantoprazole 40 Mg Tab) 40 mg PO QAM [facility] Stop: 07/30/24 08:59 Last Admin: 07/04/24 09:07 Dose: 40 mg Pravastatin Sodium (Pravastatin Sod 40 Mg Tab) 40 mg PO DAILY@1700 [facility] Stop: 07/30/24 16:59 Last Admin: 07/04/24 16:35 Dose: 40 mg Ropinirole HCl (Ropinirole Hcl 0.25 Mg Tablet) 0.25 mg PO HS PRN PRN Reason: restless leg syndrome Stop: 07/29/24 20:29 Last Admin: 07/01/24 20:33 Dose: 0.25 mg Sodium Chloride (Sodium Chloride 0.65% Na Soln 45 Ml ([place]ili)) 2 sprays NA PRN PRN PRN Reason: Dryness Stop: 07/31/24 07:58 Last Admin: 07/01/24 13:28 Dose: 2 sprays Tramadol HCl (Tramadol Hcl 50 Mg Tablet) 25 - 50 mg PO Q4H PRN PRN Reason: Pain Stop: 07/29/24 20:30 Last Admin: 07/04/24 09:03 Dose: 50 mg
--- NOTE | 2024-07-05 11:53 | Cardiology Progress Note ---
Date of Service July 05, 2024 Assessment & Plan (1) NSTEMI (non-ST elevated myocardial infarction): Plan NSTEMI Nausea, vomiting, diarrhea Nonocclusive CAD (per CATH 2013) Coronary artery calcification on CT PAF s/p PVI ablation Hx pericarditis EUSEBIA on CPAP obesity 3.5cm thoracic aortic aneurysm -Patient remains chest pain free. -Troponin mildly elevated. No repeat completed. Ordered and currently pending. -EKG without acute changes. -Continue heparin drip -ECHO yesterday with preserved LVEF with apical, septal and anteroseptal WMA -CT chest with significant amount of multivessel calcification -Plan for inpatient cardiac CATH tomorrow. NPO after midnight. 07/02/2024 69-year-old female with presented with initially symptoms of gastroenteritis followed by symptoms consistent with prior angina pectoris with classic viselike chest pressure pain and discomfort. Troponin elevation consistent with non-ST segment elevation myocardial infarction with wall motion abnormality noted on echocardiogram. Patient undergo cardiac catheterization today. Procedure and risks explained in detail to the patient informed consent obtained. Cardiac catheterization demonstrated two-vessel significant coronary disease with long area of 60 to 70% stenosis in the mid left anterior descending hemodynamically significant as well as a large caliber high marginal branch with 90% proximal stenosis hazy and likely culprit. Patient referred for two-vessel coronary intervention. See procedural report 07/03/2024 1. Non-ST segment elevation myocardial infarction: Cardiac catheterization demonstrated two-vessel coronary artery disease as above. Patient underwent intervention to the mid left anterior descending with long stent with excellent result. Left circumflex obtuse marginal with proximal stenosis with good result with PCI but with distal vessel dissection. Second stent placed distally with small subbranch occlusion. Patient treated overnight with IV heparin and IV nitroglycerin. No arrhythmias on telemetry. Plan: Discontinue IV heparin and IV nitroglycerin. Begin isosorbide mononitrate 30 mg p.o. daily. Continue metoprolol succinate 12.5 mg twice per day Continue lisinopril, pravastatin as ordered. No further diltiazem at this time EKG today May transfer to PCU as bed available Begin to increase activities Observe on telemetry additional day 07/04/2024 Patient continues to experience nausea and malaise as well as chest wall pain and tenderness. Now 2 days post coronary invention and post procedure infarct. Plan: Echocardiogram to reassess LV function, exclude pericardial effusion Increase metoprolol succinate Continue dual antiplatelet therapy Will hold isosorbide given headache Continue to monitor 07/05/2024 Clinically improving but begun on IV antibiotics due to persistent fever. Cardiac medications adjusted. Remains on dual antiplatelet therapy. Beta- kam increased with blood pressure and heart rate now appropriate Will begin activities. Watch for pleuritic signs to suggest pericarditis Will continue to follow Admission and Anticipated Discharge Date Admission Date: June 29, 2024 Subjective Patient was seen and examined, chart, medications, telemetry reviewed. Feels slightly better today chest pressure not significant. Still with some abdominal pain. Is on antibiotics for intermittent fever. No pleuritic discomfort. Review of Systems Review of Systems: All systems reviewed & are unremarkable except as noted in Subjective Physical Exam Constitutional: WD/WN, vitals as above + obese Eyes: PERRL, conjunctivae normal, anicteric sclerae ENMT: Mallampati Class: III Neck: normal visual inspection Respiratory: normal respiratory effort, lungs clear to auscultation Cardiovascular: RRR, no murmur, no edema Vessels: normal carotid upstroke and radial pulses present (Right radial access site healing well); no JVD Extremities: + edema (Trace) Gastrointestinal (Abdomen): Percussion/Palpation: abdomen soft; abdomen nontender Skin: no rashes, warm and dry Psychiatric: A+Ox3, euthymic affect Results & Data Vital Signs (Past 12 Hours) Vital Signs Temp Pulse Pulse Resp BP BP Pulse Ox 07/05/24 11:00 37.6 C H 85 18 109/58 L 91 07/05/24 08:00 72 07/05/24 08:00 07/05/24 07:13 36.8 C 74 18 99/66 L 95 07/05/24 03:02 77 20 96 07/05/24 02:57 37.0 C 67 18 88/54 L 96 O2 Del Method 07/05/24 11:00 Room Air 07/05/24 08:00 07/05/24 08:00 Room Air 07/05/24 07:13 CPAP 07/05/24 03:02 07/05/24 02:57 Nasal CPAP Laboratory Results Laboratory Results - last 24 hr 07/04/24 07/04/24 07/04/24 18:59 20:22 Unknown WBC RBC Hgb 8.4 L Hct 25.8 L MCV MCH MCHC RDW Std Deviation RDW Coeff of Emma Plt Count MPV Sodium Potassium Chloride Carbon Dioxide Anion Gap BUN Creatinine Est Cr Clr Drug Dosing eGFR BUN/Creatinine Ratio Glucose Lactate 0.8 Calcium Phosphorus Magnesium Procalcitonin 0.09 Nasal Screen MRSA (PCR) Negative 07/05/24 06:16 WBC 14.34 H RBC 3.26 L Hgb 8.9 L Hct 27.7 L MCV 85.0 MCH 27.3 MCHC 32.1 RDW Std Deviation 43.5 RDW Coeff of Emma 14.1 Plt Count 244 MPV 9.6 Sodium 135 L Potassium 4.1 Chloride 96 L Carbon Dioxide 34 H Anion Gap 5 BUN 25 H Creatinine 0.98 Est Cr Clr Drug Dosing 62.7 eGFR 63.26 BUN/Creatinine Ratio 25.5 H Glucose 103 H Lactate Calcium 8.7 Phosphorus 4.6 Magnesium 1.9 Procalcitonin Nasal Screen MRSA (PCR)
[2024-07-05 19:04] LABS: Appearance Urine Clear (Clear); Bilirubin Urine Negative (Negative); Blood Urine Negative (Negative); Color Urine Yellow; Glucose Urine UA Negative (Negative); Ketones Urine Trace (Negative); Leukocyte Esterase Urine Negative (Negative); Nitrite Urine Negative (Negative); Protein Urine Negative (Negative); Specific Gravity Urine 1.015 (1.000-1.030); Urobilinogen Urine Negative (Negative)
[2024-07-05] MEDS: SODIUM CHLORIDE 0.9% 500 ML IV ONE ×2 (19:35→20:45)
[2024-07-05] MEDS ORDERED: VANCOMYCIN CONSULT ACTIVE PRN (20:09)
[2024-07-05 20:41] LABS: Hemoglobin 8.4 g/dl (12.0-16.0)
[2024-07-05 21:12] LABS: Basophils # (auto) 0.05 K/uL (0.00-0.20); Basophils % (auto) 0.4 %; Eosinophils # (auto) 0.22 K/uL (0.00-0.50); Eosinophils % (auto) 1.5 %; Hematocrit (blood only) 26.3 % (37.0-47.0); Hemoglobin 8.5 g/dl (12.0-16.0); Immature Granulocytes # (auto) 0.15 K/uL (0.01-0.20); Immature Granulocytes % (auto) 1.1 %; Lymphocytes # (auto) 2.62 K/uL (1.20-3.40); Lymphocytes % (auto) 18.4 %; Mean Corpuscular Hemoglobin 28.1 pg (25.0-34.0); Mean Corpuscular Hgb Conc 32.3 g/dL (32.0-36.0); Mean Corpuscular Volume 86.8 fL (80.0-100.0); Mean Platelet Volume 9.5 fL (9.4-12.4); Monocytes # (auto) 1.03 K/uL (0.11-0.59); Monocytes % (auto) 7.2 %; Neutrophils % (auto) 71.4 %; Platelet Count 249 K/uL (130-400); RDW Standard Deviation 44.2 fL (36.4-46.3); Red Blood Count 3.03 M/uL (4.20-5.40); White Blood Count 14.27 K/ul (4.8-10.8)
[2024-07-05] MEDS: OPTIRAY 320 125ml IV ONE (21:22)
[2024-07-05 21:25] LABS: Adenovirus PCR Not Detected (NotDetected); Bordetella parapertussis PCR Not Detected (NotDetected); Bordetella pertussis PCR Not Detected (NotDetected); Chlamydia pneumoniae PCR Not Detected (NotDetected); Coronavirus 229E PCR Not Detected (NotDetected); Coronavirus CoV-2 (COVID19)PCR Not Detected (NotDetected); Coronavirus HKU1 PCR Not Detected (NotDetected); Coronavirus NL63 PCR Not Detected (NotDetected); Coronavirus OC43PCR Not Detected (NotDetected); Human Metapneumovirus PCR Not Detected (NotDetected); Influenza A PCR Not Detected (NotDetected); Influenza B PCR Not Detected (NotDetected); Mycoplasma pneumoniae PCR Not Detected (NotDetected); Parainfluenza Virus 1 PCR Not Detected (NotDetected); Parainfluenza Virus 2 PCR Not Detected (NotDetected); Parainfluenza Virus 3 PCR Not Detected (NotDetected); Parainfluenza Virus 4 PCR Not Detected (NotDetected); Respiratory Syncytial VirusPCR Not Detected (NotDetected); Rhinovirus/Enterovirus PCR Not Detected (NotDetected)
[2024-07-05 21:27] LABS: Albumin Globulin Ratio 1.2 (0.9-2); Albumin Level 3.4 gm/dl (3.4-5.0); Bilirubin,Total 0.3 mg/dl (0.2-1.0); Calcium 8.7 mg/dl (8.6-10.3); Creatinine Clr Calc Pharmacy 45.5 ml/min; Globulin 2.9 gm/dl (2.5-4.0); Magnesium 1.9 mg/dl (1.7-2.4); Potassium 3.9 mmol/L (3.5-5.1); Total Protein 6.3 gm/dl (6.0-8.3)
[2024-07-05] MEDS: VANCOMYCIN HCL 2,000 MG in SODIUM CHLORIDE 0.9% 500 ML IV ONE (21:42)
[2024-07-05 22:00] LABS: D Dimer 930 ug/L FEU (0-500)
[2024-07-05] MEDS ORDERED: HEPARIN SOD (PORCINE) 1000 UNIT/ML IV ONE (22:31)
[2024-07-05] MEDS ORDERED: HEPARIN 25000 UNIT/500 ML D5W 25,000 UNITS/500 ML BAG IV SCH (22:45)
[2024-07-05] MEDS: Heparin IV Adult Wt-Based Low-Dose w/ INITIAL Bolus Protocol IV STA (22:49)
--- NOTE | 2024-07-05 23:22 | CT Scan Report ---
Exam(s): CTA CHEST IV Amt: 112 opti 320 EXAM: CT Angiography Chest With Intravenous Contrast CLINICAL HISTORY: Reason for exam: PE. TECHNIQUE: Axial computed tomographic angiography images of the chest with intravenous contrast. CTDI is 28.14 mGy and DLP is 1556.11 mGy-cm. Automated exposure control was utilized for the study. A dose lowering technique was utilized adhering to the principles of ALARA. MIP reconstructed images were created and reviewed. COMPARISON: No relevant prior studies available. FINDINGS: Artifact degrades image quality somewhat limiting the exam. Pulmonary arteries: No pulmonary embolism is seen. There is dilatation of the main pulmonary artery. Aorta: No thoracic aortic aneurysm or dissection. Lungs: There are mild patchy bilateral groundglass infiltrates. There are bibasilar areas of scarring and/or atelectasis.. Pleural space: No significant effusion. No pneumothorax. Heart: The heart is enlarged and contains coronary artery calcifications Bones/joints: There are degenerative changes in the spine. Soft tissues: A loop recording device is noted in the left anterior chest wall.. Lymph nodes: There are small mediastinal lymph nodes.. IMPRESSION: No pulmonary embolism is seen. There is dilatation of the main pulmonary artery which can be seen with pulmonary hypertension. There are mild patchy bilateral groundglass infiltrates. There are bibasilar areas of scarring and/or atelectasis.. The heart is enlarged and contains coronary artery calcifications Electronically signed by: Andrew Salomon MD 07/05/24 23:21 PM
--- NOTE | 2024-07-05 23:56 | CT Scan Report ---
Exam(s): CT ABDOMEN + PELVIS With Contrast IV Amt: 112ml opti 320 EXAM: CT Abdomen and Pelvis With Intravenous Contrast CLINICAL HISTORY: Reason for exam: abd pain, anemia, hematoma?. TECHNIQUE: Axial computed tomography images of the abdomen and pelvis with intravenous contrast. CTDI is 28.14 mGy and DLP is 1556.11 mGy-cm. Automated exposure control was utilized for the study. A dose lowering technique was utilized adhering to the principles of ALARA. CONTRAST: Patient received 112ml opti 320 of IV contrast COMPARISON: 06/29/2024 FINDINGS: Lung bases: . No consolidation. ABDOMEN: Liver: The liver is enlarged and of diffuse decreased attenuation. Gallbladder and bile ducts: The patient is status post cholecystectomy.. No ductal dilation. Pancreas: No mass. No ductal dilation. Spleen: No splenomegaly. Adrenals: No mass. Kidneys and ureters: No hydronephrosis. There are rounded lucencies within the kidneys. Stomach and bowel: There are retained foodstuffs within the stomach. There is air and stool noted in the colon. There are diverticula present on the colon. No significant inflammatory changes are seen.. PELVIS: Appendix: Unremarkable CT scan appearance noted the appendix.. Bladder: No calculi are noted within the bladder.. Reproductive: The patient appears to be status post hysterectomy. ABDOMEN and PELVIS: Intraperitoneal space: No free air. No significant fluid collection. Bones/joints: There are degenerative changes in the spine. Soft tissues: There is a ventral abdominal wall hernia containing fat.. Vasculature: There are atherosclerotic changes. No abdominal aortic aneurysm. Lymph nodes: No enlarged lymph nodes. IMPRESSION: Diverticulosis. The liver is enlarged and of diffuse decreased attenuation which may be due to fatty infiltration. There are possible bilateral renal cysts. See discussion above Electronically signed by: Andrew Salomon MD 07/05/24 23:55 PM
[2024-07-06 06:09] LABS: Hematocrit (blood only) 25.2 % (37.0-47.0); Hemoglobin 8.3 g/dl (12.0-16.0); Mean Corpuscular Hemoglobin 27.9 pg (25.0-34.0); Mean Corpuscular Hgb Conc 32.9 g/dL (32.0-36.0); Mean Corpuscular Volume 84.8 fL (80.0-100.0); Platelet Count 246 K/uL (130-400); RDW Coefficient of Variation 13.9 % (11.5-14.5); RDW Standard Deviation 43.1 fL (36.4-46.3); Red Blood Count 2.97 M/uL (4.20-5.40); White Blood Count 12.71 K/ul (4.8-10.8)
[2024-07-06 06:31] LABS: BUN Creatinine Ratio 26.5 (10-20); Calcium 8.5 mg/dl (8.6-10.3); Creatinine Clr Calc Pharmacy 74.1 ml/min; Magnesium 1.8 mg/dl (1.7-2.4); Phosphorus 3.6 mg/dl (2.5-4.9); Potassium 4.1 mmol/L (3.5-5.1)
[2024-07-06 07:35] LABS: Troponin I High Sensitivity 6185.6 pg/ml (0-14)
--- NOTE | 2024-07-06 09:39 | Pharmacy Report ---
Pharmacy PK ABX Note - Date of Service July 06, 2024 - Assessment and Plan Assessment 69 year old F receiving Vancomycin, Zosyn, and Doxycycline for treatment of pneumonia. * Day #2 of antimicrobial therapy Zosyn and Doxycycline. Day #1 of Vancomycin. * Febrile. Leukocytosis of 12.7k. Renal fxn improving. ID consulted, await their recommendations. * MRSA nasal swab negative. Sputum and Blood cultures negative. Repeat blood cultures ordered. Plan Vancomycin * Loading dose: 2000 mg IV x 1 * Maintenance dose: 1500 mg IV every 24 hours * Regimen is predicted to achieve target AUC/DENISHA of 400-600 mg/L.hr * Level will be ordered in 48-72 hours Zosyn * 4.5 g IV every 8 hours Doxycycline * 100 mg IV every 12 hours Pharmacy will continue to follow and will adjust dose/frequency as necessary. Thank you. Pharmacy has transitioned to AUC monitoring for vancomycin. AUC/DENISHA is the preferred PK/PD target and is associated with decreased risk of nephrotoxicity compared to traditional trough targets.
--- NOTE | 2024-07-06 12:07 | Cardiology Progress Note ---
Date of Service July 06, 2024 Assessment & Plan (1) NSTEMI (non-ST elevated myocardial infarction): Plan NSTEMI Nausea, vomiting, diarrhea Nonocclusive CAD (per CATH 2013) Coronary artery calcification on CT PAF s/p PVI ablation Hx pericarditis EUSEBIA on CPAP obesity 3.5cm thoracic aortic aneurysm -Patient remains chest pain free. -Troponin mildly elevated. No repeat completed. Ordered and currently pending. -EKG without acute changes. -Continue heparin drip -ECHO yesterday with preserved LVEF with apical, septal and anteroseptal WMA -CT chest with significant amount of multivessel calcification -Plan for inpatient cardiac CATH tomorrow. NPO after midnight. 07/02/2024 69-year-old female with presented with initially symptoms of gastroenteritis followed by symptoms consistent with prior angina pectoris with classic viselike chest pressure pain and discomfort. Troponin elevation consistent with non-ST segment elevation myocardial infarction with wall motion abnormality noted on echocardiogram. Patient undergo cardiac catheterization today. Procedure and risks explained in detail to the patient informed consent obtained. Cardiac catheterization demonstrated two-vessel significant coronary disease with long area of 60 to 70% stenosis in the mid left anterior descending hemodynamically significant as well as a large caliber high marginal branch with 90% proximal stenosis hazy and likely culprit. Patient referred for two-vessel coronary intervention. See procedural report 07/03/2024 1. Non-ST segment elevation myocardial infarction: Cardiac catheterization demonstrated two-vessel coronary artery disease as above. Patient underwent intervention to the mid left anterior descending with long stent with excellent result. Left circumflex obtuse marginal with proximal stenosis with good result with PCI but with distal vessel dissection. Second stent placed distally with small subbranch occlusion. Patient treated overnight with IV heparin and IV nitroglycerin. No arrhythmias on telemetry. Plan: Discontinue IV heparin and IV nitroglycerin. Begin isosorbide mononitrate 30 mg p.o. daily. Continue metoprolol succinate 12.5 mg twice per day Continue lisinopril, pravastatin as ordered. No further diltiazem at this time EKG today May transfer to PCU as bed available Begin to increase activities Observe on telemetry additional day 07/04/2024 Patient continues to experience nausea and malaise as well as chest wall pain and tenderness. Now 2 days post coronary invention and post procedure infarct. Plan: Echocardiogram to reassess LV function, exclude pericardial effusion Increase metoprolol succinate Continue dual antiplatelet therapy Will hold isosorbide given headache Continue to monitor 07/05/2024 Clinically improving but begun on IV antibiotics due to persistent fever. Cardiac medications adjusted. Remains on dual antiplatelet therapy. Beta- kam increased with blood pressure and heart rate now appropriate Will begin activities. Watch for pleuritic signs to suggest pericarditis Will continue to follow 07/06/2024 1. Non-ST segment elevation myocardial infarction with symptoms consistent with angina observed while being evaluated in the emergency room for noncardiac complaints. Troponin with significant elevation. 2. Two-vessel coronary artery disease receiving drug-eluting stent to the mid left anterior sending and proximal circumflex marginal 3. Acute circumflex marginal procedural dissection with branch occlusion and periprocedural myocardial infarction without significant LV dysfunction 4. Intermittent hypotension: Suspect at least partially secondary to medical therapies. Will stop isosorbide mononitrate, hold lisinopril, gabapentin Plan to resume gabapentin at reduced dosing to avoid abrupt withdrawal and possible taper off. Resume lisinopril at reduced dose as blood pressure allows i.e. 5 mg/day Admission and Anticipated Discharge Date Admission Date: June 29, 2024 Subjective Patient seen and examined telemetry and studies reviewed. Still with mild chest discomfort but improving. Once again evaluated last evening for hypotension. Low-grade temperature elevation Low-grade abdominal tenderness but no rebound or guarding. Currently feels improved this morning, sitting at bedside Results & Data Vital Signs (Past 12 Hours) Vital Signs Temp Pulse Pulse Resp BP BP Pulse Ox 07/06/24 11:35 37.5 C 76 18 108/65 94 07/06/24 08:07 37.8 C H 86 20 102/64 91 07/06/24 08:00 07/06/24 08:00 78 07/06/24 03:17 36.5 C 70 14 93/56 L 97 O2 Del Method O2 Flow Rate 07/06/24 11:35 Room Air 07/06/24 08:07 Room Air 07/06/24 08:00 Room Air 07/06/24 08:00 07/06/24 03:17 Nasal Cannula 3 Laboratory Results Laboratory Results - last 24 hr 07/05/24 07/05/24 07/05/24 18:50 20:15 20:53 WBC 14.27 H RBC 3.03 L Hgb 8.4 L 8.5 L Hct 26.0 L 26.3 L MCV 86.8 MCH 28.1 MCHC 32.3 RDW Std Deviation 44.2 RDW Coeff of Emma 14.0 Plt Count 249 MPV 9.5 Immature Gran % (Auto) 1.1 Neut % (Auto) 71.4 Lymph % (Auto) 18.4 [place] % (Auto) 7.2 Eos % (Auto) 1.5 Baso % (Auto) 0.4 Neut # (Auto) 10.20 H Lymph # (Auto) 2.62 [place] # (Auto) 1.03 H Eos # (Auto) 0.22 Baso # (Auto) 0.05 Immature Gran # (Auto) 0.15 D-Dimer 930 H* Sodium 133 L Potassium 3.9 Chloride 99 Carbon Dioxide 30 Anion Gap 4 BUN 27 H Creatinine 1.35 H D Est Cr Clr Drug Dosing 45.5 eGFR 43.07 BUN/Creatinine Ratio 20.0 Glucose 109 H Lactate 0.8 Calcium 8.7 Phosphorus Magnesium 1.9 Total Bilirubin 0.3 AST 31 ALT 21 Alkaline Phosphatase 57 Troponin I High Sens 7776.0 H* Total Protein 6.3 Albumin 3.4 Globulin 2.9 Albumin/Globulin Ratio 1.2 Random Cortisol 3.65 Urine Color Yellow Urine Appearance Clear Urine pH 5.0 Ur Specific [place] 1.015 Urine Protein Negative Urine Glucose (UA) Negative Urine Ketones Trace H Urine Blood Negative Urine Nitrite Negative Urine Bilirubin Negative Urine Urobilinogen Negative Ur Leukocyte Esterase Negative Adenovirus (PCR) Not Detected B. pertussis DNA (PCR) Not Detected B.parapertussis DNA PCR Not Detected C. pneumoniae DNA (PCR) Not Detected Coronavirus OC43 (PCR) Not Detected Coronavirus HKU1 (PCR) Not Detected Coronavirus 229E (PCR) Not Detected SARS-CoV-2 (PCR) Not Detected Coronavirus NL63 (PCR) Not Detected Human Metapneumovir PCR Not Detected Influenza Type A (PCR) Not Detected Influenza Type B (PCR) Not Detected M. pneumoniae (PCR) Not Detected Parainfluenza 1 (PCR) Not Detected Parainfluenza 2 (PCR) Not Detected Parainfluenza 3 (PCR) Not Detected Parainfluenza 4 (PCR) Not Detected RSV (PCR) Not Detected Entero/Rhino (PCR) Not Detected 07/06/24 05:33 WBC 12.71 H RBC 2.97 L Hgb 8.3 L Hct 25.2 L MCV 84.8 MCH 27.9 MCHC 32.9 RDW Std Deviation 43.1 RDW Coeff of Emma 13.9 Plt Count 246 MPV 10.0 Immature Gran % (Auto) Neut % (Auto) Lymph % (Auto) [place] % (Auto) Eos % (Auto) Baso % (Auto) Neut # (Auto) Lymph # (Auto) [place] # (Auto) Eos # (Auto) Baso # (Auto) Immature Gran # (Auto) D-Dimer Sodium 136 Potassium 4.1 Chloride 104 Carbon Dioxide 28 Anion Gap 4 BUN 22 Creatinine 0.83 D Est Cr Clr Drug Dosing 74.1 eGFR 77.22 BUN/Creatinine Ratio 26.5 H Glucose 107 H Lactate Calcium 8.5 L Phosphorus 3.6 D Magnesium 1.8 Total Bilirubin AST ALT Alkaline Phosphatase Troponin I High Sens 6185.6 H* D Total Protein Albumin Globulin Albumin/Globulin Ratio Random Cortisol Urine Color Urine Appearance Urine pH Ur Specific [place] Urine Protein Urine Glucose (UA) Urine Ketones Urine Blood Urine Nitrite Urine Bilirubin Urine Urobilinogen Ur Leukocyte Esterase Adenovirus (PCR) B. pertussis DNA (PCR) B.parapertussis DNA PCR C. pneumoniae DNA (PCR) Coronavirus OC43 (PCR) Coronavirus HKU1 (PCR) Coronavirus 229E (PCR) SARS-CoV-2 (PCR) Coronavirus NL63 (PCR) Human Metapneumovir PCR Influenza Type A (PCR) Influenza Type B (PCR) M. pneumoniae (PCR) Parainfluenza 1 (PCR) Parainfluenza 2 (PCR) Parainfluenza 3 (PCR) Parainfluenza 4 (PCR) RSV (PCR) Entero/Rhino (PCR)
[2024-07-06] MEDS: VANCOMYCIN HCL 1,500 MG in SODIUM CHLORIDE 0.9% 500 ML IV SCH (12:22)
--- NOTE | 2024-07-06 14:59 | Ultrasound Report ---
BILATERAL LOWER EXTREMITY VENOUS DOPPLER HISTORY: Acute pain and swelling of the lower legs r/o dvt COMPARISON STUDY: None. FINDINGS: There is normal compressibility, flow, and augmentation within the bilateral lower extremit y deep venous systems. IMPRESSION: No DVT within the right or left lower extremity. ACT 112: Negative or not required by law. Electronically signed by: Santy Laws M.D. 07/06/2024 2:58 PM
[2024-07-06] MEDS: LORazepam 0.5 MG TAB PO PRN (20:06)
[2024-07-06] MEDS ORDERED: POLYETHYLENE (MIRALAX) 17 GM PACK PO PRN (20:07)
[2024-07-06] MEDS: DOCUSATE SODIUM/SENNA 50/8.6MG TAB PO STA (20:59)
--- NOTE | 2024-07-06 21:59 | Electrocardiogram Report ---
Test Reason : Blood Pressure : */* mmHG Vent. Rate : 79 BPM Atrial Rate : 79 BPM P-R Int : 174 ms QRS Dur : 96 ms QT Int : 384 ms P-R-T Axes : 40 62 56 degrees QTcB Int : 440 ms Normal sinus rhythm Nonspecific ST and T wave abnormality Abnormal ECG When compared with ECG of 03-Jul-2024 12:06, T wave inversion no longer evident in Anterior leads Confirmed by Jong Bryson ([id number]) on 07/06/2024 9:59:07 PM Referred By: REFERRED SELF Confirmed By: Jong Bryson
[2024-07-07 06:53] LABS: Hematocrit (blood only) 27.5 % (37.0-47.0); Hemoglobin 8.7 g/dl (12.0-16.0); Mean Corpuscular Hemoglobin 27.6 pg (25.0-34.0); Mean Corpuscular Hgb Conc 31.6 g/dL (32.0-36.0); Mean Corpuscular Volume 87.3 fL (80.0-100.0); Mean Platelet Volume 10.3 fL (9.4-12.4); Platelet Count 286 K/uL (130-400); RDW Coefficient of Variation 13.9 % (11.5-14.5); RDW Standard Deviation 43.8 fL (36.4-46.3); Red Blood Count 3.15 M/uL (4.20-5.40); White Blood Count 10.47 K/ul (4.8-10.8)
[2024-07-07 07:21] LABS: BUN Creatinine Ratio 23.4 (10-20); Calcium 9.1 mg/dl (8.6-10.3); Creatinine Clr Calc Pharmacy 80.6 ml/min; Magnesium 1.8 mg/dl (1.7-2.4); Phosphorus 3.7 mg/dl (2.5-4.9); Potassium 3.8 mmol/L (3.5-5.1)
--- NOTE | 2024-07-07 07:37 | Hospitalist Progress Note ---
Date of Service Jul 06, 2024 (late entry) Assessment & Plan (1) NSTEMI (non-ST elevated myocardial infarction): Plan: NSTEMI H/O Nonocclusive CAD --Chest CTA:No thoracic aortic dissection. Aneurysmal dilatation of the mid descending thoracic aorta measuring 3.6 cm, slightly increased since CT of June 21, 2023. Mild alveolar opacities within the lower lobes suggestive of an infectious process. Cardiomegaly. -- Elevated troponin --Normal TSH --Echo: EF 55 to 60%. Right ventricle is mildly dilated. Right ventricular systolic pressure is normal. No significant valvular disease. Moderate sized apical, septal, anteroseptal wall motion abnormality with hypokinesis of the segments. --HbA1c 5.9 -- Total cholesterol 222, triglycerides 184, LDL 144 --S/P cardiac catheterization and PCI: Successful PCI of proximal to mid LAD with single drug-eluting stent. Procedure complicated by mid OM1 dissection treated with additional MIRIAM (2.25 x 15 [place]). Residual dissection/no reflow in medial, distal branch of OM1 downstream from stents. -- IV heparin, IV nitroglycerin discontinued --Continue aspirin, Plavix, metoprolol, isosorbide, lisinopril, statin --Diltiazem discontinued Appreciate cardiology, critical care input Downgraded to PCU on 07/03 07/04 Today reports feeling somewhat worse, reports chest pressure - discussed w/ cardiology - plan to obtain echo today Echo obtained - unremarkable Multifocal ed pneumonia--POA Reports chronic cough due to COPD --CTA:Mild alveolar opacities within the lower lobes suggestive of an infectious process --Normal procalcitonin --BioFire negative --Blood cultures-negative to date- Continued Rocephin, doxycycline (doxy re-ordered as not seen ordered now) Pt febrile 38.2C last night, WBC up at 18K this AM (07/04) sputum cultx ordered 07/05 Pt is feeling better since zosyn started (07/04 evening). Fever better controlled, but still has some spikes of temp. WBC down to 14K Sputum cultx - 07/04 - normal ce Blood cultx 07/01 - negative Repeat blood cultx 07/05 - pending Vancomycin was added as pt still spikes temp. Pt reports cough improved. WBC down to 12K today (07/06) Pt hypotensive overnight - required saline boluses Hgb been low -> CT chest abd pelvis was obtained -- imaging unremarkable ID consulted Hyperlipidemia H/O atorvastatin intolerance Continue pravastatin Gastroenteritis --CT ABD: No acute process is identified in the abdomen and pelvis. Chronic findings include a 3.5 cm descending thoracic aortic aneurysm and a fat- containing ventral hernia just above the umbilicus. This hernia has increased from 3 to 4 cm since the prior study. --Stool studies pending --Tolerating current diet Thoracic aortic aneurysm Incidental finding on CT Advised to follow-up as outpatient Morbid obesity BMI 42 Paroxysmal atrial fibrillation S/P ablation, post ablation pericarditis Cardizem stopped -> metoprolol, cardiology following closely GERD Continue PPI RLS On ropinirole as needed Hypertension Continue current medications Monitor COPD Chronic cough No signs of exacerbation Continue home medications EUSEBIA on CPAP Prediabetes HbA1c 5.9 H/O Endometrial cancer S/P surgery hysterectomy in 04/2024 at [facility] DVT Px: Heparin ggt discontinued SCDs Code Status - Full Code Admission and Anticipated Discharge Date Admission Date: June 29, 2024 Subjective Pt seen in follow up Currently lying in bed in NAD , + some chest pressure unchanged. has cough - says cough is better now Cardiology following closely Pt reports having hysterectomy on 04/30/2025, and cont. to have some abd. discomfort since the surgery. Discussed w/ radiology in great detail her CT images from admission - no concern for post-surg infection, no abscess Pt started on zosyn d/t being febrile, and added vancomycin as she would still spike temp. repeat blood cultx obtained on 07/05 PM - so far no hrowth Overall pt feels better today and WBC down to 12K Will check dopplers to r/o dvt - to examine other sources of fever Overnight hypotensive - received saline boluses, Hgb been lower -> discussed w/ immigration lawyer - obtained Ct chest abd pelvis- imaging unremarkable Review of Systems Review of Systems: All systems reviewed & are unremarkable except as noted in Subjective Physical Exam Physical Exam: General Appearance:Morbidly Obese F Head: normocephalic, Atraumatic Eyes: normal inspection, EOMI Neck: supple Respiratory/Chest: decreased breath sounds,No accessory muscle use Cardiovascular: decreased heart sounds, no murmur noted Abdomen/GI:Soft, mildly tender to palp., Bowel sounds present Extremities/Musculoskeletal:normal inspection, no edema Neurologic/Psych:AAOX3, grossly no focal neurological deficits Skin: normal color, warm Results & Data Results & Data Vital Signs (Past 12 Hours) Vital Signs Temp Pulse Pulse Resp BP Pulse Ox O2 Del Method 07/06/24 23:58 36.8 C 70 18 100/63 95 CPAP 07/06/24 22:57 74 07/06/24 22:50 80 20 96 07/06/24 21:00 CPAP O2 Flow Rate 07/06/24 23:58 07/06/24 22:57 07/06/24 22:50 3 07/06/24 21:00 4
--- NOTE | 2024-07-07 08:02 | Hospitalist Progress Note ---
Date of Service July 07, 2024 Assessment & Plan (1) NSTEMI (non-ST elevated myocardial infarction): Plan: NSTEMI H/O Nonocclusive CAD --Chest CTA:No thoracic aortic dissection. Aneurysmal dilatation of the mid descending thoracic aorta measuring 3.6 cm, slightly increased since CT of June 21, 2023. Mild alveolar opacities within the lower lobes suggestive of an infectious process. Cardiomegaly. -- Elevated troponin --Normal TSH --Echo: EF 55 to 60%. Right ventricle is mildly dilated. Right ventricular systolic pressure is normal. No significant valvular disease. Moderate sized apical, septal, anteroseptal wall motion abnormality with hypokinesis of the segments. --HbA1c 5.9 -- Total cholesterol 222, triglycerides 184, LDL 144 --S/P cardiac catheterization and PCI: Successful PCI of proximal to mid LAD with single drug-eluting stent. Procedure complicated by mid OM1 dissection treated with additional MIRIAM (2.25 x 15 Zap). Residual dissection/no reflow in medial, distal branch of OM1 downstream from stents. -- IV heparin, IV nitroglycerin discontinued --Continue aspirin, Plavix, metoprolol, isosorbide, lisinopril, statin --Diltiazem discontinued Appreciate cardiology, critical care input Downgraded to PCU on 07/03 07/04 Today reports feeling somewhat worse, reports chest pressure - discussed w/ cardiology - plan to obtain echo today -> Echo obtained - unremarkable Multifocal ed pneumonia--POA Reports chronic cough due to COPD --CTA:Mild alveolar opacities within the lower lobes suggestive of an infectious process --Normal procalcitonin --BioFire negative --Blood cultures-negative to date- Continued Rocephin, doxycycline (doxy re-ordered as not seen ordered now) 07/04 Pt febrile 38.2C last night, WBC up at 18K sputum cultx ordered 07/05 Pt is feeling better since zosyn started (07/04 evening). Fever better controlled, but still has some spikes of temp. WBC down to 14K Sputum cultx - 07/04 - normal ce Blood cultx 07/01 - negative Repeat blood cultx 07/05 - no growth in 24 hrs Vancomycin was added as pt still spikes temp. 07/06 Pt reports cough improved. WBC down to 12K Pt hypotensive overnight - required saline boluses Hgb been low -> CT chest abd pelvis was obtained -- imaging unremarkable ID consulted - awaiting recs 07/07 WBC down to 10 K, Last fever 07/06 evening Discussed w/ cardiology yesterday and Cardiac meds adjusted to prevent further hypotension. ? Fever from poss. inflammation? ID consult placed - awaiting recs Hyperlipidemia H/O atorvastatin intolerance Continue pravastatin Gastroenteritis --CT ABD: No acute process is identified in the abdomen and pelvis. Chronic findings include a 3.5 cm descending thoracic aortic aneurysm and a fat- containing ventral hernia just above the umbilicus. This hernia has increased from 3 to 4 cm since the prior study. --Stool studies pending --Tolerating current diet Thoracic aortic aneurysm Incidental finding on CT Advised to follow-up as outpatient Morbid obesity BMI 42 Paroxysmal atrial fibrillation S/P ablation, post ablation pericarditis Cardizem stopped -> metoprolol, cardiology following closely GERD Continue PPI RLS On ropinirole as needed Hypertension Continue current medications Monitor COPD Chronic cough No signs of exacerbation Continue home medications EUSEBIA on CPAP Prediabetes HbA1c 5.9 H/O Endometrial cancer S/P surgery hysterectomy in 04/2024 at [facility] DVT Px: Heparin ggt discontinued SCDs Code Status - Full Code Admission and Anticipated Discharge Date Admission Date: June 29, 2024 Subjective Pt seen in follow up Currently lying in bed in NAD , + some chest pressure unchanged. has cough - says cough is better now Cardiology following closely Pt reports having hysterectomy on 04/30/2025, and cont. to have some abd. discomfort since the surgery. Discussed w/ radiology in great detail her CT images from admission - no concern for post-surg infection, no abscess Pt started on zosyn d/t being febrile, and added vancomycin as she would still spike temp. repeat blood cultx obtained on 07/05 PM - so far no growth WBC down to 10K today (normalized) Last fever yesterday (07/06) evening Review of Systems Review of Systems: All systems reviewed & are unremarkable except as noted in Subjective Physical Exam Physical Exam: General Appearance:Morbidly Obese F Head: normocephalic, Atraumatic Eyes: normal inspection, EOMI Neck: supple Respiratory/Chest: decreased breath sounds,No accessory muscle use Cardiovascular: decreased heart sounds, no murmur noted Abdomen/GI:Soft, mildly tender to palp., Bowel sounds present Extremities/Musculoskeletal:normal inspection, no edema Neurologic/Psych:AAOX3, grossly no focal neurological deficits Skin: normal color, warm Results & Data Results & Data Vital Signs (Past 12 Hours) Vital Signs Temp Pulse Pulse Resp BP Pulse Ox O2 Del Method 07/07/24 07:54 Room Air 07/07/24 03:10 36.8 C 65 18 116/72 92 BiPAP 07/07/24 02:18 75 18 95 07/06/24 23:58 36.8 C 70 18 100/63 95 CPAP 07/06/24 22:57 74 07/06/24 22:50 80 20 96 07/06/24 21:00 CPAP O2 Flow Rate 07/07/24 07:54 07/07/24 03:10 07/07/24 02:18 3 07/06/24 23:58 07/06/24 22:57 07/06/24 22:50 3 07/06/24 21:00 4 Laboratory Results 07/07/24 Range/Units 05:47 WBC 10.47 (4.8-10.8) K/ul RBC 3.15 L (4.20-5.40) M/uL Hgb 8.7 L (12.0-16.0) g/dl Hct 27.5 L (37.0-47.0) % MCV 87.3 (80.0-100.0) fL MCH 27.6 (25.0-34.0) pg MCHC 31.6 L (32.0-36.0) g/dL RDW Std Deviation 43.8 (36.4-46.3) fL RDW Coeff of Emma 13.9 (11.5-14.5) % Plt Count 286 (130-400) K/uL MPV 10.3 (9.4-12.4) fL Sodium 140 (136-145) mmol/L Potassium 3.8 (3.5-5.1) mmol/L Chloride 105 (98-107) mmol/L Carbon Dioxide 27 (21-32) mmol/L Anion Gap 8 (3-11) BUN 18 (6-23) mg/dl Creatinine 0.77 (0.6-1.2) mg/dl Est Cr Clr Drug Dosing 80.6 ml/min eGFR 84.49 BUN/Creatinine Ratio 23.4 H (10-20) Glucose 113 H (70-99(Fasting)) mg/dl Calcium 9.1 (8.6-10.3) mg/dl Phosphorus 3.7 (2.5-4.9) mg/dl Magnesium 1.8 (1.7-2.4) mg/dl Medications Administered Current Inpatient Medications Acetaminophen (Acetaminophen 325 Mg Tab) 650 mg PO QID PRN PRN Reason: pain/fever Stop: 07/29/24 20:32 Last Admin: 07/06/24 20:07 Dose: 650 mg Al Hydrox/Mg Hydrox/Simethicone (Aluminum/Magnesium/Simeth (Maalox Max) 30 Ml Udc) 15 ml PO Q6H PRN PRN Reason: Dyspepsia Stop: 07/31/24 12:46 Aspirin (Aspirin 81 Mg Ectab) 81 mg PO DAILY LINDSEY Stop: 07/30/24 08:59 Last Admin: 07/06/24 08:13 Dose: 81 mg Clobetasol Propionate (Clobetasol Propionate 0.05% Oint 15 Gm Tube) 1 appln EXT DAILY LINDSEY Stop: 07/30/24 16:29 Last Admin: 07/06/24 08:15 Dose: 1 appln Clopidogrel Bisulfate (Clopidogrel Bisulfate 75 Mg Tab) 75 mg PO QAM LINDSEY Stop: 08/02/24 08:59 Last Admin: 07/06/24 08:13 Dose: 75 mg Ferrous Sulfate (Ferrous Sulfate 325 Mg Tab) 325 mg PO DAILY LINDSEY Stop: 07/30/24 08:59 Last Admin: 07/06/24 08:13 Dose: 325 mg Fluticasone Furoate (Fluticasone Furoate 100mcg 14 Puffs/Inhaler) 1 puffs INH DAILY LINDSEY Stop: 07/31/24 13:44 Last Admin: 07/06/24 08:14 Dose: 1 puffs Gabapentin (Gabapentin 100 Mg Cap) 100 mg PO BID LINDSEY Stop: 07/29/24 20:59 Last Admin: 07/06/24 20:06 Dose: 100 mg Gabapentin (Gabapentin 100 Mg Cap) 200 mg PO QDL LINDSEY Stop: 07/30/24 11:29 Last Admin: 07/05/24 11:14 Dose: 200 mg Guaifenesin (Guaifenesin 600 Mg Tabcr) 600 mg PO Q12 LINDSEY Stop: 08/03/24 12:24 Last Admin: 07/06/24 20:06 Dose: 600 mg Promethazine HCl (Phenergan) 6.25 mg in 50.25 mls @ 201 mls/hr IV Q6H PRN PRN Reason: Nausea And Vomiting Stop: 07/29/24 20:30 Last Infusion: 07/03/24 12:16 Dose: Infused Doxycycline Hyclate 100 mg/ (Dextrose) 100 mls @ 50 mls/hr IV Q12H [facility] Stop: 07/09/24 13:59 Last Infusion: 07/07/24 06:31 Dose: Infused Piperacillin Sod/Tazobactam Sod (Zosyn) 4.5 gm in 100 mls @ 25 mls/hr IV Q8H [facility]; Protocol Stop: 07/10/24 00:00 Last Infusion: 07/07/24 05:05 Dose: Infused Vancomycin HCl 1,500 mg/ (Sodium Chloride) 530 mls @ 200 mls/hr IV Q24H [facility] Stop: 07/11/24 11:59 Last Infusion: 07/06/24 15:20 Dose: Infused Isosorbide Mononitrate (Isosorbide [place] Extended Rel 30 Mg Tabcr) 30 mg PO QAM [facility] Stop: 08/02/24 11:29 Last Admin: 07/05/24 09:47 Dose: 30 mg Lisinopril (Lisinopril 20 Mg Tab) 20 mg PO DAILY [facility] Stop: 07/30/24 08:59 Last Admin: 07/05/24 09:45 Dose: 20 mg Lorazepam (Lorazepam 0.5 Mg Tab) 0.5 mg PO TID PRN PRN Reason: Anxiety Stop: 07/29/24 20:31 Last Admin: 07/06/24 20:06 Dose: 0.5 mg Metoprolol Succinate (Metoprolol Succ 25mg Ext Rel Tab) 25 mg PO BID [facility] Stop: 08/03/24 20:59 Last Admin: 07/06/24 20:06 Dose: 25 mg Miscellaneous Information (Vancomycin Consult Active) 0 each N/A UD PRN PRN Reason: Consult Stop: 08/04/24 20:08 Montelukast Sodium (Montelukast Sodium 10 Mg Tablet) 10 mg PO QAM [facility] Stop: 07/30/24 08:59 Last Admin: 07/06/24 08:13 Dose: 10 mg Morphine Sulfate (Morphine Sulfate 4 Mg/Ml 1 Ml Carp\Vial) 2 mg IV Q4H PRN PRN Reason: Pain Stop: 07/13/24 20:31 Last Admin: 07/03/24 05:51 Dose: 2 mg Multivitamins (Multivitamin Tab) 1 tab PO QAM LINDSEY Stop: 07/30/24 08:59 Last Admin: 07/06/24 08:13 Dose: 1 tab Nitroglycerin (Nitroglycerin Sl 0.4 Mg/Tab Tab) 0.4 mg SL Q5M PRN PRN Reason: Chest Pain Stop: 07/29/24 20:30 Pantoprazole Sodium (Pantoprazole 40 Mg Tab) 40 mg PO QAM [facility] Stop: 07/30/24 08:59 Last Admin: 07/06/24 08:13 Dose: 40 mg Polyethylene Glycol (Polyethylene (Miralax) 17 Gm Pack) 17 gm PO DAILY PRN PRN Reason: Constipation Stop: 08/05/24 20:06 Pravastatin Sodium (Pravastatin Sod 40 Mg Tab) 40 mg PO DAILY@1700 [facility] Stop: 07/30/24 16:59 Last Admin: 07/06/24 15:45 Dose: 40 mg Sodium Chloride (Sodium Chloride 0.65% Na Soln 45 Ml (Josephine)) 2 sprays NA PRN PRN PRN Reason: Dryness Stop: 07/31/24 07:58 Last Admin: 07/01/24 13:28 Dose: 2 sprays Tramadol HCl (Tramadol Hcl 50 Mg Tablet) 25 - 50 mg PO Q4H PRN PRN Reason: Pain Stop: 07/29/24 20:30 Last Admin: 07/04/24 09:03 Dose: 50 mg
--- NOTE | 2024-07-07 11:31 | Cardiology Progress Note ---
<Statement entered by Tiny Voss DO - 07/07/24 13:59> I have reviewed the advanced practitioner's documentation and agree with the plan of care. I accept the responsibility for the associated risk. Pt seen in cardiology follow up due to NSTEMI s/p PCIs complicated with dissection of diag. She was having low grade fevers that have sensed broke-this is possibly due to more inflammatory process then infectious. She is still having some mild chest pressure but improving each day. BP is still on the low side continue to hold ARB/ACEI Continue ASA, plavix, metoprolol Continue to monitor on telemetry Have pt start ambulating alittle Date of Service July 07, 2024 Assessment & Plan (1) Coronary artery dissection: (2) NSTEMI (non-ST elevated myocardial infarction): (3) Chest pain: Plan 69-year-old female with angina when in the ER with being evaluated for noncardiac complaints NSTEMI. - Troponin peaked at 7776.20 pg/mL - Initial echo on 06/30 with moderate size apical, septal, anteroseptal wall motion abnormality with hypokinesis of the segments, EF 55 to 60% - July 02, 2024 coronary angiography: Two-vessel CAD, s/p MIRIAM to the mid LAD and proximal LCX marginal - Acute circumflex marginal procedural complicated by dissection with branch occlusion, periprocedural myocardial infarction - TTE on 07/04 with mild hypokinesis of the lateral wall with otherwise normal LV systolic function, EF 55 to 60%. No MR. No pericardial effusion. - Postintervention [place] course complicated by hypotension at least in part due to medical therapies, inflammatory response, possible infection. Blood cultures negative. Afebrile since 07/06/2024 at 19:18 Recommendations: Continue aspirin 81 mg/day, clopidogrel 75 mg/day, metoprolol succinate 25 mg twice per day, pravastatin 40 mg/day No isosorbide, Re: Headaches, hypotension Continue to hold lisinopril, looking to resume at reduced dosing of 2.5 to 5 mg/day if/when blood pressure permits Check EKG Increase activity as tolerated Admission and Anticipated Discharge Date Admission Date: June 29, 2024 Subjective Patient seen and examined. Chart, medications, telemetry reviewed. Left-sided chest discomfort, unlike that in the ER< worse when laying on the left side, stirred up with activity such as walking in the hallway. The left breast feels bigger than the right. Sinuses are bothering her "because of this dry air." Hypotension has improved Telemetry: Sinus, heart rates in the 60s to 80s. No significant arrhythmias. Physical Exam Physical Exam: General: NAD. HENT: Normocephalic. Atraumatic. Eyes: PER. Conjunctiva pink, sclera clear. Neck: No JVD. Heart: RRR, 74 bpm. No murmur. No rub. Lungs: Clear to auscultation. Abdomen: +BS. Soft. Nontender. No masses or organomegaly. Extremities: No clubbing, cyanosis, or edema. Limited neurological examination is without focal deficits. Results & Data Vital Signs (Past 12 Hours) Vital Signs Temp Pulse Pulse Resp BP BP Pulse Ox 07/07/24 08:53 36.8 C 74 18 103/70 92 07/07/24 08:00 70 07/07/24 07:54 07/07/24 03:10 36.8 C 65 18 116/72 92 07/07/24 02:18 75 18 95 07/06/24 23:58 36.8 C 70 18 100/63 95 O2 Del Method O2 Flow Rate 07/07/24 08:53 Room Air 07/07/24 08:00 07/07/24 07:54 Room Air 07/07/24 03:10 BiPAP 07/07/24 02:18 3 07/06/24 23:58 CPAP Laboratory Results CBC 07/07/24 Range/Units 05:47 WBC 10.47 (4.8-10.8) K/ul RBC 3.15 L (4.20-5.40) M/uL Hgb 8.7 L (12.0-16.0) g/dl Hct 27.5 L (37.0-47.0) % Plt Count 286 (130-400) K/uL Comprehensive Metabolic Panel 07/07/24 Range/Units 05:47 Sodium 140 (136-145) mmol/L Potassium 3.8 (3.5-5.1) mmol/L Chloride 105 (98-107) mmol/L Carbon Dioxide 27 (21-32) mmol/L BUN 18 (6-23) mg/dl Creatinine 0.77 (0.6-1.2) mg/dl Glucose 113 H (70-99(Fasting)) mg/dl Calcium 9.1 (8.6-10.3) mg/dl Intake and Output 07/06/24 07/07/24 07/07/24 22:59 06:59 14:59 Intake Total 1580 / 1880 200 / 1880 Balance 1580 / 1880 200 / 1880 Intake: IV 730 / 1030 200 / 1030 Doxycycline Hyclate 100 mg In 100 / 200 100 / 200 Dextrose 5% Mini-B 100 ml @ 50 mls/hr IV Q12H [facility] Rx#:[id number] Piperacillin/Tazobactam 4.5 gm 100 / 300 100 / 300 In 100 ml @ 25 mls/hr IV Q8H [facility] Rx#:[id number] Vancomycin HCl 1,500 mg In 530 / 530 Sodium Chloride 0.9% 500 ml @ 200 mls/hr IV Q24H [facility] Rx#: [id number] Oral 850 / 850 Other: # Unmeasured Voids 8 1 Weight 105.8 kg Weight Measurement Method Built in [facility]
[2024-07-07] MEDS: POTASSIUM CHLORIDE 10 MEQ TABCR PO ONE (11:39)
[2024-07-07] MEDS: DOCUSATE SODIUM 100 MG CAP PO SCH (20:33)
[2024-07-08 07:54] LABS: Hematocrit (blood only) 27.3 % (37.0-47.0); Hemoglobin 8.7 g/dl (12.0-16.0); Mean Corpuscular Hemoglobin 27.5 pg (25.0-34.0); Mean Corpuscular Hgb Conc 31.9 g/dL (32.0-36.0); Mean Corpuscular Volume 86.4 fL (80.0-100.0); Platelet Count 312 K/uL (130-400); RDW Coefficient of Variation 13.7 % (11.5-14.5); RDW Standard Deviation 42.3 fL (36.4-46.3); Red Blood Count 3.16 M/uL (4.20-5.40); White Blood Count 9.74 K/ul (4.8-10.8)
[2024-07-08 08:10] LABS: BUN Creatinine Ratio 22.2 (10-20); Calcium 9.1 mg/dl (8.6-10.3); Magnesium 1.7 mg/dl (1.7-2.4); Phosphorus 4.4 mg/dl (2.5-4.9); Potassium 3.9 mmol/L (3.5-5.1)
--- NOTE | 2024-07-08 08:19 | Hospitalist Progress Note ---
Date of Service July 08, 2024 Assessment & Plan (1) NSTEMI (non-ST elevated myocardial infarction): Plan: NSTEMI H/O Nonocclusive CAD --Chest CTA:No thoracic aortic dissection. Aneurysmal dilatation of the mid descending thoracic aorta measuring 3.6 cm, slightly increased since CT of June 21, 2023. Mild alveolar opacities within the lower lobes suggestive of an infectious process. Cardiomegaly. -- Elevated troponin --Normal TSH --Echo: EF 55 to 60%. Right ventricle is mildly dilated. Right ventricular systolic pressure is normal. No significant valvular disease. Moderate sized apical, septal, anteroseptal wall motion abnormality with hypokinesis of the segments. --HbA1c 5.9 -- Total cholesterol 222, triglycerides 184, LDL 144 --S/P cardiac catheterization and PCI: Successful PCI of proximal to mid LAD with single drug-eluting stent. Procedure complicated by mid OM1 dissection treated with additional MIRIAM (2.25 x 15 [place]). Residual dissection/no reflow in medial, distal branch of OM1 downstream from stents. -- IV heparin, IV nitroglycerin discontinued --Continue aspirin, Plavix, metoprolol, isosorbide, lisinopril, statin --Diltiazem discontinued Appreciate cardiology, critical care input Downgraded to PCU on 07/03 07/04 Today reports feeling somewhat worse, reports chest pressure - discussed w/ cardiology - plan to obtain echo today -> Echo obtained - unremarkable Multifocal ed pneumonia--POA Reports chronic cough due to COPD --CTA:Mild alveolar opacities within the lower lobes suggestive of an infectious process --Normal procalcitonin --BioFire negative --Blood cultures-negative to date- Continued Rocephin, doxycycline (doxy re-ordered as not seen ordered now) 07/04 Pt febrile 38.2C last night, WBC up at 18K sputum cultx ordered 07/05 Pt is feeling better since zosyn started (07/04 evening). Fever better controlled, but still has some spikes of temp. WBC down to 14K Sputum cultx - 07/04 - normal ce Blood cultx 07/01 - negative Repeat blood cultx 07/05 - no growth in 24 hrs Vancomycin was added as pt still spikes temp. 07/06 Pt reports cough improved. WBC down to 12K Pt hypotensive overnight - required saline boluses Hgb been low -> CT chest abd pelvis was obtained -- imaging unremarkable ID consulted - awaiting recs 3/ WBC down to 10 K, Last fever 07/06 evening Discussed w/ cardiology yesterday and Cardiac meds adjusted to prevent further hypotension. ? Fever from poss. inflammation? ID consult placed - awaiting recs 3/ WBC down to 9.7K, Last fever 07/07 evening 38.1C - plan as above, to discuss w/ ID on Tuesday for further recs Hyperlipidemia H/O atorvastatin intolerance Continue pravastatin Gastroenteritis --CT ABD: No acute process is identified in the abdomen and pelvis. Chronic findings include a 3.5 cm descending thoracic aortic aneurysm and a fat-contain ing ventral hernia just above the umbilicus. This hernia has increased from 3 to 4 cm since the prior study. --Stool studies pending --Tolerating current diet Thoracic aortic aneurysm Incidental finding on CT Advised to follow-up as outpatient Morbid obesity BMI 42 Paroxysmal atrial fibrillation S/P ablation, post ablation pericarditis Cardizem stopped -> metoprolol, cardiology following closely GERD Continue PPI RLS On ropinirole as needed Hypertension Continue current medications Monitor COPD Chronic cough No signs of exacerbation Continue home medications EUSEBIA on CPAP Prediabetes HbA1c 5.9 H/O Endometrial cancer S/P surgery hysterectomy in 04/2024 at [facility] DVT Px: Heparin ggt discontinued SCDs Code Status - Full Code Admission and Anticipated Discharge Date Admission Date: June 29, 2024 Subjective Pt seen in follow up Currently sitting up in bed in NAD , + some chest pressure unchanged. had cough - says cough is better now Cardiology following closely Pt reports having hysterectomy on 04/30/2025, and cont. to have some abd. discomfort since the surgery. Discussed w/ radiology in great detail her CT images from admission - no concern for post-surg infection, no abscess Pt started on zosyn d/t being febrile, and added vancomycin as she would still spike temp. repeat blood cultx obtained on 07/05 PM - so far no growth WBC down to 9.7K today (normalized) Last fever yesterday (07/07) evening, 38.1C Review of Systems Review of Systems: All systems reviewed & are unremarkable except as noted in Subjective Physical Exam Physical Exam: General Appearance:Morbidly Obese F Head: normocephalic, Atraumatic Eyes: normal inspection, EOMI Neck: supple Respiratory/Chest: decreased breath sounds,No accessory muscle use Cardiovascular: decreased heart sounds, no murmur noted Abdomen/GI:Soft, mildly tender to palp., Bowel sounds present Extremities/Musculoskeletal:normal inspection, no edema Neurologic/Psych:AAOX3, grossly no focal neurological deficits Skin: normal color, warm Results & Data Results & Data Vital Signs (Past 12 Hours) Vital Signs Temp Pulse Pulse Resp BP BP Pulse Ox 07/08/24 02:34 64 20 94 07/08/24 02:25 36.8 C 69 20 114/64 99 07/08/24 00:00 77 07/07/24 23:27 77 15 97 07/07/24 23:24 36.7 C 70 16 104/66 96 07/07/24 20:56 O2 Del Method O2 Flow Rate 07/08/24 02:34 3 07/08/24 02:25 BiPAP 07/08/24 00:00 07/07/24 23:27 3 07/07/24 23:24 BiPAP 07/07/24 20:56 Room Air Laboratory Results 07/08/24 Range/Units 07:00 WBC 9.74 (4.8-10.8) K/ul RBC 3.16 L (4.20-5.40) M/uL Hgb 8.7 L (12.0-16.0) g/dl Hct 27.3 L (37.0-47.0) % MCV 86.4 (80.0-100.0) fL MCH 27.5 (25.0-34.0) pg MCHC 31.9 L (32.0-36.0) g/dL RDW Std Deviation 42.3 (36.4-46.3) fL RDW Coeff of Emma 13.7 (11.5-14.5) % Plt Count 312 (130-400) K/uL MPV 10.0 (9.4-12.4) fL Sodium 140 (136-145) mmol/L Potassium 3.9 (3.5-5.1) mmol/L Chloride 105 (98-107) mmol/L Carbon Dioxide 29 (21-32) mmol/L Anion Gap 6 (3-11) BUN 16 (6-23) mg/dl Creatinine 0.72 (0.6-1.2) mg/dl Est Cr Clr Drug Dosing 86.0 ml/min eGFR 91.58 BUN/Creatinine Ratio 22.2 H (10-20) Glucose 93 (70-99(Fasting)) mg/dl Calcium 9.1 (8.6-10.3) mg/dl Phosphorus 4.4 (2.5-4.9) mg/dl Magnesium 1.7 (1.7-2.4) mg/dl Medications Administered Current Inpatient Medications Acetaminophen (Acetaminophen 325 Mg Tab) 650 mg PO QID PRN PRN Reason: pain/fever Stop: 07/29/24 20:32 Last Admin: 07/07/24 20:39 Dose: 650 mg Al Hydrox/Mg Hydrox/Simethicone (Aluminum/Magnesium/Simeth (Maalox Max) 30 Ml Udc) 15 ml PO Q6H PRN PRN Reason: Dyspepsia Stop: 07/31/24 12:46 Aspirin (Aspirin 81 Mg Ectab) 81 mg PO DAILY [facility] Stop: 07/30/24 08:59 Last Admin: 07/07/24 08:50 Dose: 81 mg Clobetasol Propionate (Clobetasol Propionate 0.05% Oint 15 Gm Tube) 1 appln EXT DAILY [facility] Stop: 07/30/24 16:29 Last Admin: 07/07/24 08:53 Dose: 1 appln Clopidogrel Bisulfate (Clopidogrel Bisulfate 75 Mg Tab) 75 mg PO QAM [facility] Stop: 08/02/24 08:59 Last Admin: 07/07/24 08:51 Dose: 75 mg Docusate Sodium (Docusate Sodium 100 Mg Cap) 100 mg PO BID [facility] Stop: 08/06/24 20:59 Last Admin: 07/07/24 20:33 Dose: Not Given Ferrous Sulfate (Ferrous Sulfate 325 Mg Tab) 325 mg PO DAILY [facility] Stop: 07/30/24 08:59 Last Admin: 07/07/24 08:53 Dose: Not Given Fluticasone Furoate (Fluticasone Furoate 100mcg 14 Puffs/Inhaler) 1 puffs INH DAILY [facility] Stop: 07/31/24 13:44 Last Admin: 07/07/24 08:53 Dose: 1 puffs Gabapentin (Gabapentin 100 Mg Cap) 100 mg PO BID [facility] Stop: 07/29/24 20:59 Last Admin: 07/07/24 20:35 Dose: 100 mg Gabapentin (Gabapentin 100 Mg Cap) 200 mg PO QDL [facility] Stop: 07/30/24 11:29 Last Admin: 07/05/24 11:14 Dose: 200 mg Guaifenesin (Guaifenesin 600 Mg Tabcr) 600 mg PO Q12 [facility] Stop: 08/03/24 12:24 Last Admin: 07/07/24 20:37 Dose: 600 mg Promethazine HCl (Phenergan) 6.25 mg in 50.25 mls @ 201 mls/hr IV Q6H PRN PRN Reason: Nausea And Vomiting Stop: 07/29/24 20:30 Last Infusion: 07/03/24 12:16 Dose: Infused Doxycycline Hyclate 100 mg/ (Dextrose) 100 mls @ 50 mls/hr IV Q12H [facility] Stop: 07/09/24 13:59 Last Infusion: 07/08/24 04:54 Dose: Infused Piperacillin Sod/Tazobactam Sod (Zosyn) 4.5 gm in 100 mls @ 25 mls/hr IV Q8H [facility]; Protocol Stop: 07/10/24 00:00 Last Infusion: 07/08/24 03:01 Dose: Infused Vancomycin HCl 1,500 mg/ (Sodium Chloride) 530 mls @ 200 mls/hr IV Q24H [facility] Stop: 07/11/24 11:59 Last Infusion: 07/07/24 14:43 Dose: Infused Isosorbide Mononitrate (Isosorbide [place] Extended Rel 30 Mg Tabcr) 30 mg PO QAM [facility] Stop: 08/02/24 11:29 Last Admin: 07/05/24 09:47 Dose: 30 mg Lisinopril (Lisinopril 20 Mg Tab) 20 mg PO DAILY [facility] Stop: 07/30/24 08:59 Last Admin: 07/05/24 09:45 Dose: 20 mg Lorazepam (Lorazepam 0.5 Mg Tab) 0.5 mg PO TID PRN PRN Reason: Anxiety Stop: 07/29/24 20:31 Last Admin: 07/06/24 20:06 Dose: 0.5 mg Magnesium Oxide (Magnesium Oxide 400 Mg Tab) 400 mg PO QAM [facility] Stop: 08/07/24 08:59 Metoprolol Succinate (Metoprolol Succ 25mg Ext Rel Tab) 25 mg PO BID [facility] Stop: 08/03/24 20:59 Last Admin: 07/07/24 20:36 Dose: 25 mg Miscellaneous Information (Vancomycin Consult Active) 0 each N/A UD PRN PRN Reason: Consult Stop: 08/04/24 20:08 Montelukast Sodium (Montelukast Sodium 10 Mg Tablet) 10 mg PO QAM [facility] Stop: 07/30/24 08:59 Last Admin: 07/07/24 08:52 Dose: 10 mg Morphine Sulfate (Morphine Sulfate 4 Mg/Ml 1 Ml Carp\Vial) 2 mg IV Q4H PRN PRN Reason: Pain Stop: 07/13/24 20:31 Last Admin: 07/03/24 05:51 Dose: 2 mg [facility]ivit[facility] ([facility] Tab) [facility] Stop: 07/30/24 08:59 Last Admin: 07/07/24 08:51 Dose: 1 tab Nitroglycerin (Nitroglycerin Sl 0.4 Mg/Tab Tab) 0.4 mg SL Q5M PRN PRN Reason: Chest Pain Stop: 07/29/24 20:30 Pantoprazole Sodium (Pantoprazole 40 Mg Tab) [facility] Stop: 07/30/24 08:59 Last Admin: 07/07/24 08:52 Dose: 40 mg Polyethylene Glycol (Polyethylene (Miralax) 17 Gm Pack) 17 gm PO DAILY PRN PRN Reason: Constipation Stop: 08/05/24 20:06 Pravastatin Sodium (Pravastatin Sod 40 Mg Tab) 40 mg PO DAILY@1700 [facility] Stop: 07/30/24 16:59 Last Admin: 07/07/24 15:46 Dose: 40 mg Sodium Chloride (Sodium Chloride 0.65% Na Soln 45 Ml ([place])) 2 sprays NA PRN PRN PRN Reason: Dryness Stop: 07/31/24 07:58 Last Admin: 07/01/24 13:28 Dose: 2 sprays Tramadol HCl (Tramadol Hcl 50 Mg Tablet) 25 - 50 mg PO Q4H PRN PRN Reason: Pain Stop: 07/29/24 20:30 Last Admin: 07/04/24 09:03 Dose: 50 mg
[2024-07-08] MEDS: MAGNESIUM OXIDE 400 MG TAB PO SCH (08:43)
--- NOTE | 2024-07-08 11:19 | Cardiology Progress Note ---
<Statement entered by Tiny Voss DO - 07/08/24 14:12> I have reviewed the advanced practitioner's documentation and agree with the plan of care. I accept the responsibility for the associated risk. Pt seen in cardiology follow up due to NSTEMI s/p PCIs complicated with dissection of diag. She was having low grade fevers that have sensed broke-this is possibly due to more inflammatory process then infectious. She is still having some mild chest pressure but improving each day. Pt no problems overnight is starting to increase her activity BP is still on the low side continue to hold ARB/ACEI Continue ASA, plavix, metoprolol Continue to monitor on telemetry she will need to follow up with cardiology upon discharge please re-consult as necessary Date of Service July 08, 2024 Assessment & Plan (1) Coronary artery dissection: (2) NSTEMI (non-ST elevated myocardial infarction): (3) Chest pain: Plan 69-year-old female with angina when in the ER with being evaluated for noncardiac complaints NSTEMI. - Troponin peaked at 7776.20 pg/mL - Initial echo on 06/30 with moderate size apical, septal, anteroseptal wall motion abnormality with hypokinesis of the segments, EF 55 to 60% - July 02, 2024 coronary angiography: Two-vessel CAD, s/p MIRIAM to the mid LAD and proximal LCX marginal - Acute circumflex marginal procedural complicated by dissection with branch occlusion, periprocedural myocardial infarction - TTE on 07/04 with mild hypokinesis of the lateral wall with otherwise normal LV systolic function, EF 55 to 60%. No MR. No pericardial effusion. - Postintervention [place] course complicated by hypotension at least in part due to medical therapies, inflammatory response, possible infection. Blood cultures negative. Continue aspirin 81 mg/day, clopidogrel 75 mg/day, metoprolol succinate 25 mg twice per day, and pravastatin 40 mg/day. Increase activity as tolerated. Outpatient cardiology follow-up. Admission and Anticipated Discharge Date Admission Date: June 29, 2024 Subjective Patient seen and examined. Chart, medications, telemetry reviewed. Some improvement noted in chest discomfort, now describing 1-2 out of 10 constant dull ache as well as a pressure that may be up to a 3 out of 10 "when pushing the heart." Telemetry: Sinus in the 70s. Physical Exam Physical Exam: General: NAD. HENT: Normocephalic. Atraumatic. Eyes: PER. Conjunctiva pink, sclera clear. Neck: No JVD. Heart: RRR, 80 bpm. No murmur. No rub. Lungs: Clear to auscultation. Abdomen: +BS. Soft. Nontender. No masses or organomegaly. Extremities: No clubbing, cyanosis, or edema. Limited neurological examination is without focal deficits. Results & Data Vital Signs (Past 12 Hours) Vital Signs Temp Pulse Pulse Resp BP BP Pulse Ox 07/08/24 08:41 36.7 C 83 18 125/69 95 07/08/24 08:00 07/08/24 02:34 64 20 94 07/08/24 02:25 36.8 C 69 20 114/64 99 07/08/24 00:00 77 07/07/24 23:27 77 15 97 07/07/24 23:24 36.7 C 70 16 104/66 96 O2 Del Method O2 Flow Rate 07/08/24 08:41 Room Air 07/08/24 08:00 Room Air 07/08/24 02:34 3 07/08/24 02:25 BiPAP 07/08/24 00:00 07/07/24 23:27 3 07/07/24 23:24 BiPAP Laboratory Results CBC 07/08/24 Range/Units 07:00 WBC 9.74 (4.8-10.8) K/ul RBC 3.16 L (4.20-5.40) M/uL Hgb 8.7 L (12.0-16.0) g/dl Hct 27.3 L (37.0-47.0) % Plt Count 312 (130-400) K/uL Comprehensive Metabolic Panel 07/08/24 Range/Units 07:00 Sodium 140 (136-145) mmol/L Potassium 3.9 (3.5-5.1) mmol/L Chloride 105 (98-107) mmol/L Carbon Dioxide 29 (21-32) mmol/L BUN 16 (6-23) mg/dl Creatinine 0.72 (0.6-1.2) mg/dl Glucose 93 (70-99(Fasting)) mg/dl Calcium 9.1 (8.6-10.3) mg/dl Intake and Output 0307/08/24 07/08/24 22:59 06:59 14:59 Intake Total 200 / 930 200 / 930 Balance 200 / 930 200 / 930 Intake: IV 200 / 930 200 / 930 Doxycycline Hyclate 100 mg In 100 / 100 Dextrose 5% Mini-B 100 ml @ 50 mls/hr IV Q12H [facility] Rx#:[id number] Piperacillin/Tazobactam 4.5 gm 200 / 300 100 / 300 In 100 ml @ 25 mls/hr IV Q8H [facility] Rx#:[id number] Other: # Unmeasured Voids 1 Weight 105.3 kg Weight Measurement Method Built in [facility]
[2024-07-08 15:46] LABS: A calco-baum cmplx NotReported Not Detected (NotDetected); Bact fragilis Not Reported Not Detected (NotDetected); Blood Culture Id Panel PCR Panel Negative (NotDetected); C auris Not Reported Not Detected (NotDetected); Calbicans Not Reported Not Detected (NotDetected); Candida glabrata Not Reported Not Detected (NotDetected); Candida krusei Not Reported Not Detected (NotDetected); Cneoformans/gatti Not Reported Not Detected (NotDetected); Cparapsilosis Not Reported Not Detected (NotDetected); E cloacae compx Not Reported Not Detected (NotDetected); Efaecalis Not Reported Not Detected (NotDetected); Efaecium Not Reported Not Detected (NotDetected); Enterobacterales Not Reported Not Detected (NotDetected); Escherichia coli Not Reported Not Detected (NotDetected); H influenzae Not Reported Not Detected (NotDetected); K aerogenes Not Reported Not Detected (NotDetected); Koxytoca Not Reported Not Detected (NotDetected); Kpneumoniae grp Not Reported Not Detected (NotDetected); Lmonocyt Not Reported Not Detected (NotDetected); N meningitidis Not Reported Not Detected (NotDetected); P aeruginosa Not Reported Not Detected (NotDetected); Proteus spp Not Reported Not Detected (NotDetected); Salmonella spp Not Reported Not Detected (NotDetected); Staph lugdunensis Not Reported Not Detected (NotDetected); Staph spp. Not Reported Not Detected (NotDetected); Staphaureus Not Reported Not Detected (NotDetected); Staphepi Not Reported Not Detected (NotDetected); Stenmaltophilia Not Reported Not Detected (NotDetected); Strep agal(GrpB) Not Reported Not Detected (NotDetected); Strep pneum Not Reported Not Detected (NotDetected); Strep pyog (GrpA) Not Reported Not Detected (NotDetected); Strep spp Not Reported Not Detected (NotDetected)
[2024-07-08] MEDS: LORATADINE 10 MG TAB PO SCH (20:56)
[2024-07-09 09:49] LABS: Hematocrit (blood only) 28.1 % (37.0-47.0); Hemoglobin 8.9 g/dl (12.0-16.0); Mean Corpuscular Hemoglobin 27.4 pg (25.0-34.0); Mean Corpuscular Hgb Conc 31.7 g/dL (32.0-36.0); Mean Corpuscular Volume 86.5 fL (80.0-100.0); Mean Platelet Volume 9.6 fL (9.4-12.4); Platelet Count 343 K/uL (130-400); RDW Coefficient of Variation 13.6 % (11.5-14.5); RDW Standard Deviation 42.7 fL (36.4-46.3); Red Blood Count 3.25 M/uL (4.20-5.40); White Blood Count 9.28 K/ul (4.8-10.8)
[2024-07-09 10:09] LABS: BUN Creatinine Ratio 18.7 (10-20); Calcium 9.6 mg/dl (8.6-10.3); Creatinine Clr Calc Pharmacy 82.2 ml/min; Magnesium 1.7 mg/dl (1.7-2.4); Phosphorus 3.6 mg/dl (2.5-4.9); Potassium 3.7 mmol/L (3.5-5.1)
--- NOTE | 2024-07-09 10:46 | Pharmacy Report ---
Pharmacy PK ABX Note - Date of Service July 09, 2024 - Assessment and Plan Assessment 07/09/24: * Day #6 of Zosyn + Doxy, Day #5 Vancomycin for treatment of CAP. Dr Felix has consulted ID, would like to extend duration x 2 more days until ID evaluates patient. * WBC wnl, continues to have low fevers. 1/2 GPB in repeat BCx. 07/06/24: 69 year old F receiving Vancomycin, Zosyn, and Doxycycline for treatment of pneumonia. * Day #2 of antimicrobial therapy Zosyn and Doxycycline. Day #1 of Vancomycin. * Febrile. Leukocytosis of 12.7k. Renal fxn improving. ID consulted, await their recommendations. * MRSA nasal swab negative. Sputum and Blood cultures negative. Repeat blood cultures ordered. Plan Vancomycin * Current regimen: 1500 mg IV every 24 hours * Random level obtained 07/09 resulted as 6.4 mcg/mL. This is NOT predicted to achieve target AUC/DENISHA of 400-600 mg/L.hr * Change to 1000 mg IV every 12 hours, this dose has predicted AUC at steady state = 450 mg/L.hr * Will repeat level in the next 48-72 hours if therapy is continued and/or change in patient clinical status Zosyn * 4.5 g IV every 8 hours Doxycycline * 100 mg IV every 12 hours Pharmacy will continue to follow and will adjust dose/frequency as necessary. Thank you. Pharmacy has transitioned to AUC monitoring for vancomycin. AUC/DENISHA is the preferred PK/PD target and is associated with decreased risk of nephrotoxicity compared to traditional trough targets.
[2024-07-09] MEDS: VANCOMYCIN HCL 1,000 MG/270 ML BAG IV SCH (12:21)
--- NOTE | 2024-07-09 14:34 | Electrocardiogram Report ---
Test Reason : Blood Pressure : */* mmHG Vent. Rate : 94 BPM Atrial Rate : 94 BPM P-R Int : 168 ms QRS Dur : 94 ms QT Int : 346 ms P-R-T Axes : 21 59 52 degrees QTcB Int : 432 ms Normal sinus rhythm Nonspecific ST and T wave abnormality Abnormal ECG When compared with ECG of 05-Jul-2024 21:58, No significant change was found Confirmed by Jeremy Radford ([id number]) on 07/09/2024 2:33:36 PM Referred By: REFERRED SELF Confirmed By: Jeremy Radford
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
--- NOTE | 2024-07-09 18:21 | Hospitalist Progress Note ---
Date of Service July 09, 2024 Assessment & Plan (1) NSTEMI (non-ST elevated myocardial infarction): Plan: NSTEMI H/O Nonocclusive CAD --Chest CTA:No thoracic aortic dissection. Aneurysmal dilatation of the mid descending thoracic aorta measuring 3.6 cm, slightly increased since CT of June 21, 2023. Mild alveolar opacities within the lower lobes suggestive of an infectious process. Cardiomegaly. -- Elevated troponin --Normal TSH --Echo: EF 55 to 60%. Right ventricle is mildly dilated. Right ventricular systolic pressure is normal. No significant valvular disease. Moderate sized apical, septal, anteroseptal wall motion abnormality with hypokinesis of the segments. --HbA1c 5.9 -- Total cholesterol 222, triglycerides 184, LDL 144 --S/P cardiac catheterization and PCI: Successful PCI of proximal to mid LAD with single drug-eluting stent. Procedure complicated by mid OM1 dissection treated with additional MIRIAM (2.25 x 15 [place]). Residual dissection/no reflow in medial, distal branch of OM1 downstream from stents. -- IV heparin, IV nitroglycerin discontinued --Continue aspirin, Plavix, metoprolol, isosorbide, lisinopril, statin --Diltiazem discontinued Appreciate cardiology, critical care input Downgraded to PCU on 07/03 07/04 Today reports feeling somewhat worse, reports chest pressure - discussed w/ cardiology - plan to obtain echo today -> Echo obtained - unremarkable Multifocal ed pneumonia--POA Reports chronic cough due to COPD --CTA:Mild alveolar opacities within the lower lobes suggestive of an infectious process --Normal procalcitonin --BioFire negative --Blood cultures-negative to date- Continued Rocephin, doxycycline (doxy re-ordered as not seen ordered now) 07/04 Pt febrile 38.2C last night, WBC up at 18K sputum cultx ordered 07/05 Pt is feeling better since zosyn started (07/04 evening). Fever better controlled, but still has some spikes of temp. WBC down to 14K Sputum cultx - 07/04 - normal ce Blood cultx 07/01 - negative 07/05 Repeat blood cultx - positive for Gram positive bacili --> (07/09/24) contacted lab - no further identification available at this time. Discussed w/ ID - follow up on blood cultx Vancomycin was added as pt still spikes temp. 07/06 Pt reports cough improved. WBC down to 12K Pt hypotensive overnight - required saline boluses Hgb been low -> CT chest abd pelvis was obtained -- imaging unremarkable ID consulted - awaiting recs 3/ WBC down to 10 K, Last fever 07/06 evening Discussed w/ cardiology yesterday and Cardiac meds adjusted to prevent further hypotension. ? Fever from poss. inflammation? ID consult placed - awaiting recs 3 WBC down to 9.7K, Last fever 07/07 evening 38.1C - plan as above, to discuss w/ ID on Tuesday for further recs 07/09 - discussed w/ lab and ID as repeat blood cultx positive for GPB - further identification pending Hyperlipidemia H/O atorvastatin intolerance Continue pravastatin Gastroenteritis --CT ABD: No acute process is identified in the abdomen and pelvis. Chronic findings include a 3.5 cm descending thoracic aortic aneurysm and a fat- containing ventral hernia just above the umbilicus. This hernia has increased from 3 to 4 cm since the prior study. --Stool studies pending --Tolerating current diet Thoracic aortic aneurysm Incidental finding on CT Advised to follow-up as outpatient Morbid obesity BMI 42 Paroxysmal atrial fibrillation S/P ablation, post ablation pericarditis Cardizem stopped -> metoprolol, cardiology following closely GERD Continue PPI RLS On ropinirole as needed Hypertension Continue current medications Monitor COPD Chronic cough No signs of exacerbation Continue home medications EUSEBIA on CPAP Prediabetes HbA1c 5.9 H/O Endometrial cancer S/P surgery hysterectomy in 04/2024 at [facility] DVT Px: Heparin ggt discontinued SCDs Code Status - Full Code Admission and Anticipated Discharge Date Admission Date: June 29, 2024 Subjective Pt seen in follow up Currently sitting up in bed in NAD Pt started on zosyn d/t being febrile, and added vancomycin as she would still spike temp. repeat blood cultx obtained on 07/05 PM - positive for Gram positive bacili - contacted lab - no further identification available at this time. Discussed w/ ID - follow up on blood cultx WBC down to 9.3K today (normalized) Review of Systems Review of Systems: All systems reviewed & are unremarkable except as noted in Subjective Physical Exam Physical Exam: General Appearance:Morbidly Obese F Head: normocephalic, Atraumatic Eyes: normal inspection, EOMI Neck: supple Respiratory/Chest: decreased breath sounds,No accessory muscle use Cardiovascular: decreased heart sounds, no murmur noted Abdomen/GI:Soft, mildly tender to palp., Bowel sounds present Extremities/Musculoskeletal:normal inspection, no edema Neurologic/Psych:AAOX3, grossly no focal neurological deficits Skin: normal color, warm Results & Data Results & Data Vital Signs (Past 12 Hours) Vital Signs Temp Pulse Pulse Resp BP Pulse Ox O2 Del Method 07/09/24 15:11 Room Air 07/09/24 15:00 69 07/09/24 14:48 37.0 C 69 18 112/70 95 Room Air 07/09/24 09:00 37.1 C 07/09/24 07:25 37.6 C H 70 20 109/66 94 CPAP 07/09/24 07:00 82 Laboratory Results 07/09/24 Range/Units 09:20 WBC 9.28 (4.8-10.8) K/ul RBC 3.25 L (4.20-5.40) M/uL Hgb 8.9 L (12.0-16.0) g/dl Hct 28.1 L (37.0-47.0) % MCV 86.5 (80.0-100.0) fL MCH 27.4 (25.0-34.0) pg MCHC 31.7 L (32.0-36.0) g/dL RDW Std Deviation 42.7 (36.4-46.3) fL RDW Coeff of Emma 13.6 (11.5-14.5) % Plt Count 343 (130-400) K/uL MPV 9.6 (9.4-12.4) fL Sodium 139 (136-145) mmol/L Potassium 3.7 (3.5-5.1) mmol/L Chloride 104 (98-107) mmol/L Carbon Dioxide 29 (21-32) mmol/L Anion Gap 6 (3-11) BUN 14 (6-23) mg/dl Creatinine 0.75 (0.6-1.2) mg/dl Est Cr Clr Drug Dosing 82.2 ml/min eGFR 87.21 BUN/Creatinine Ratio 18.7 (10-20) Glucose 130 H (70-99(Fasting)) mg/dl Calcium 9.6 (8.6-10.3) mg/dl Phosphorus 3.6 (2.5-4.9) mg/dl Magnesium 1.7 (1.7-2.4) mg/dl Random Vancomycin 6.4 L (10-20) mcg/ml Medications Administered Current Inpatient Medications Acetaminophen (Acetaminophen 325 Mg Tab) 650 mg PO QID PRN PRN Reason: pain/fever Stop: 07/29/24 20:32 Last Admin: 07/09/24 09:42 Dose: 650 mg Al Hydrox/Mg Hydrox/Simethicone (Aluminum/Magnesium/Simeth (Maalox Max) 30 Ml Udc) 15 ml PO Q6H PRN PRN Reason: Dyspepsia Stop: 07/31/24 12:46 Aspirin (Aspirin 81 Mg Ectab) 81 mg PO DAILY LINDSEY Stop: 07/30/24 08:59 Last Admin: 07/09/24 09:13 Dose: 81 mg Clobetasol Propionate (Clobetasol Propionate 0.05% Oint 15 Gm Tube) 1 appln EXT DAILY LINDSEY Stop: 07/30/24 16:29 Last Admin: 07/09/24 09:17 Dose: 1 appln Clopidogrel Bisulfate (Clopidogrel Bisulfate 75 Mg Tab) 75 mg PO QAM LINDSEY Stop: 08/02/24 08:59 Last Admin: 07/09/24 09:14 Dose: 75 mg Docusate Sodium (Docusate Sodium 100 Mg Cap) 100 mg PO BID LINDSEY Stop: 08/06/24 20:59 Last Admin: 07/09/24 09:15 Dose: Not Given Ferrous Sulfate (Ferrous Sulfate 325 Mg Tab) 325 mg PO DAILY LINDSEY Stop: 07/30/24 08:59 Last Admin: 07/09/24 09:11 Dose: 325 mg Fluticasone Furoate (Fluticasone Furoate 100mcg 14 Puffs/Inhaler) 1 puffs INH DAILY LINDSEY Stop: 07/31/24 13:44 Last Admin: 07/09/24 12:21 Dose: 1 puffs Gabapentin (Gabapentin 100 Mg Cap) 100 mg PO BID L[place]Y Stop: 07/29/24 20:59 Last Admin: 07/09/24 09:11 Dose: 100 mg Gabapentin (Gabapentin 100 Mg Cap) 200 mg PO QDL LINDSEY Stop: 07/30/24 11:29 Last Admin: 07/05/24 11:14 Dose: 200 mg Guaifenesin (Guaifenesin 600 Mg Tabcr) 600 mg PO Q12 [facility] Stop: 08/03/24 12:24 Last Admin: 07/09/24 09:14 Dose: 600 mg Promethazine HCl (Phenergan) 6.25 mg in 50.25 mls @ 201 mls/hr IV Q6H PRN PRN Reason: Nausea And Vomiting Stop: 07/29/24 20:30 Last Infusion: 07/03/24 12:16 Dose: Infused Doxycycline Hyclate 100 mg/ (Dextrose) 100 mls @ 50 mls/hr IV Q12H [facility] Stop: 07/13/24 13:59 Last Admin: 07/09/24 15:27 Dose: Not Given Piperacillin Sod/Tazobactam Sod (Zosyn) 4.5 gm in 100 mls @ 25 mls/hr IV Q8H [facility]; Protocol Stop: 07/13/24 04:00 Last Admin: 07/09/24 16:57 Dose: 25 mls/hr Vancomycin HCl (Vancomycin Hcl) 1,000 mg in 270 mls @ 200 mls/hr IV Q12H [facility] Stop: 07/13/24 02:00 Last Infusion: 07/09/24 15:27 Dose: Infused Isosorbide Mononitrate (Isosorbide Desha Extended Rel 30 Mg Tabcr) 30 mg PO QAM [facility] Stop: 08/02/24 11:29 Last Admin: 07/05/24 09:47 Dose: 30 mg Lisinopril (Lisinopril 20 Mg Tab) 20 mg PO DAILY [facility] Stop: 07/30/24 08:59 Last Admin: 07/05/24 09:45 Dose: 20 mg Loratadine (Loratadine 10 Mg Tab) 10 mg PO HS [facility] Stop: 08/07/24 20:59 Last Admin: 07/08/24 20:56 Dose: 10 mg Lorazepam (Lorazepam 0.5 Mg Tab) 0.5 mg PO TID PRN PRN Reason: Anxiety Stop: 07/29/24 20:31 Last Admin: 07/06/24 20:06 Dose: 0.5 mg Magnesium Oxide (Magnesium Oxide 400 Mg Tab) 400 mg PO QAM [facility] Stop: 08/07/24 08:59 Last Admin: 07/09/24 09:11 Dose: 400 mg Metoprolol Succinate (Metoprolol Succ 25mg Ext Rel Tab) 25 mg PO BID [facility] Stop: 08/03/24 20:59 Last Admin: 07/09/24 09:11 Dose: 25 mg Miscellaneous Information (Vancomycin Consult Active) 0 each N/A UD PRN PRN Reason: Consult Stop: 08/04/24 20:08 Montelukast Sodium (Montelukast Sodium 10 Mg Tablet) 10 mg PO QAM [facility] Stop: 07/30/24 08:59 Last Admin: 07/09/24 09:14 Dose: 10 mg Morphine Sulfate (Morphine Sulfate 4 Mg/Ml 1 Ml Carp\Vial) 2 mg IV Q4H PRN PRN Reason: Pain Stop: 07/13/24 20:31 Last Admin: 07/03/24 05:51 Dose: 2 mg Multivitamins (Multivitamin Tab) 1 tab PO QAM [facility] Stop: 07/30/24 08:59 Last Admin: 07/09/24 09:13 Dose: 1 tab Nitroglycerin (Nitroglycerin Sl 0.4 Mg/Tab Tab) 0.4 mg SL Q5M PRN PRN Reason: Chest Pain Stop: 07/29/24 20:30 Pantoprazole Sodium (Pantoprazole 40 Mg Tab) 40 mg PO [facility] Stop: 07/30/24 08:59 Last Admin: 07/09/24 09:13 Dose: 40 mg Polyethylene Glycol (Polyethylene (Miralax) 17 Gm Pack) 17 gm PO DAILY PRN PRN Reason: Constipation Stop: 08/05/24 20:06 Pravastatin Sodium (Pravastatin Sod 40 Mg Tab) 40 mg PO DAILY@1700 [facility] Stop: 07/30/24 16:59 Last Admin: 07/09/24 16:58 Dose: 40 mg Sodium Chloride (Sodium Chloride 0.65% Na Soln 45 Ml ([place])) 2 sprays NA PRN PRN PRN Reason: Dryness Stop: 07/31/24 07:58 Last Admin: 07/01/24 13:28 Dose: 2 sprays Tramadol HCl (Tramadol Hcl 50 Mg Tablet) 25 - 50 mg PO Q4H PRN PRN Reason: Pain Stop: 07/29/24 20:30 Last Admin: 07/04/24 09:03 Dose: 50 mg
[2024-07-10 00:39] LABS: Adenovirus PCR Not Detected (NotDetected); Bordetella parapertussis PCR Not Detected (NotDetected); Bordetella pertussis PCR Not Detected (NotDetected); Chlamydia pneumoniae PCR Not Detected (NotDetected); Coronavirus 229E PCR Not Detected (NotDetected); Coronavirus CoV-2 (COVID19)PCR Not Detected (NotDetected); Coronavirus HKU1 PCR Not Detected (NotDetected); Coronavirus NL63 PCR Not Detected (NotDetected); Coronavirus OC43PCR Not Detected (NotDetected); Human Metapneumovirus PCR Not Detected (NotDetected); Influenza A PCR Not Detected (NotDetected); Influenza B PCR Not Detected (NotDetected); Mycoplasma pneumoniae PCR Not Detected (NotDetected); Parainfluenza Virus 1 PCR Not Detected (NotDetected); Parainfluenza Virus 2 PCR Not Detected (NotDetected); Parainfluenza Virus 3 PCR Not Detected (NotDetected); Parainfluenza Virus 4 PCR Not Detected (NotDetected); Respiratory Syncytial VirusPCR Not Detected (NotDetected); Rhinovirus/Enterovirus PCR Not Detected (NotDetected)
[2024-07-10 07:43] LABS: Hematocrit (blood only) 27.9 % (37.0-47.0); Hemoglobin 8.7 g/dl (12.0-16.0); Mean Corpuscular Hemoglobin 26.8 pg (25.0-34.0); Mean Corpuscular Hgb Conc 31.2 g/dL (32.0-36.0); Mean Corpuscular Volume 85.8 fL (80.0-100.0); Mean Platelet Volume 9.6 fL (9.4-12.4); Platelet Count 352 K/uL (130-400); RDW Coefficient of Variation 13.6 % (11.5-14.5); RDW Standard Deviation 41.9 fL (36.4-46.3); Red Blood Count 3.25 M/uL (4.20-5.40)
[2024-07-10 07:58] LABS: BUN Creatinine Ratio 18.6 (10-20); Calcium 9.2 mg/dl (8.6-10.3); Creatinine Clr Calc Pharmacy 88.9 ml/min; Magnesium 1.8 mg/dl (1.7-2.4); Phosphorus 3.9 mg/dl (2.5-4.9); Potassium 3.7 mmol/L (3.5-5.1)
[2024-07-10] MEDS: DOXYCYCLINE HYCLATE 100 MG CAP PO SCH (09:12)
[2024-07-10 10:49] VITALS: BP 129/65; PULSE 86; RESP 18; TEMP 98.1; O2SAT 96
--- NOTE | 2024-07-10 10:58 | Discharge Summary ---
Date of Service July 10, 2024 Admission HPI Per Admitting Provider History obtained from patient and records. Medical history significant for nonocclusive CAD, PAF status post ablation, post ablation pericarditis, proximal ascending thoracic aorta enlargement, hypertension, hyperlipidemia, COPD, EUSEBIA on CPAP, prediabetes, migraine, endometrial cancer status post surgery, stress incontinence as per records, mood disorder. Last [facility] confinement 2021 for fever and chills following outpatient steroid injection. 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 Achy abdominal pain followed by nausea vomiting watery diarrhea symptoms. At some point patient had achy substernal pain which felt like a vise around her chest similar to heart attack in the past. Nagging headache symptoms. Some SOB with chronic cough symptoms. Denies aspiration. Aspirin and Zofran given en route to the ER. Patient currently chest pain-free. 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 Admission Exam Per Admitting Provider GENERAL: Comfortable, pleasant, obese, no respiratory distress SKIN: Normal color, warm HEENT: [place] palpebral conjunctivae, no ptosis, dry buccal mucosa NECK : Supple, short neck, no tenderness CHEST : CTA, no tenderness HEART : RRR, no obvious murmurs ABDOMEN: Some distention, nontender EXTREMITIES : No LE swelling/tenderness, palpable pulses, no other conspicuous deformities noted NEUROLOGIC : Coherent, no facial asymmetry, no other gross focality Principal Diagnosis NSTEMI s/p stent multifocal pneumonia, sinusitis Discharge Exam General Appearance:Morbidly Obese F Head: normocephalic, Atraumatic Eyes: normal inspection, EOMI Neck: supple Respiratory/Chest: CTAB,No accessory muscle use Cardiovascular: regular, no murmur noted Abdomen/GI:Soft, nontender to palp., Bowel sounds present Extremities/Musculoskeletal:normal inspection, no edema Neurologic/Psych:AAOX3, grossly no focal neurological deficits Skin: normal color, warm Discharge Data Allergies Allergy/AdvReac Type Severity Reaction Status Date / Time Sulfa (Sulfonamide Allergy Intermediate METAL Verified 06/29/24 14:21 Antibiotics) TASTE IN MOUTH, TONGUE SWELLS UP tartaric acid Allergy Unknown Unknown Verified 06/29/24 14:21 valacyclovir [From Valtrex] Allergy Unknown caused Verified 06/29/24 14:21 kidney stones cetirizine [From Zyrtec] AdvReac Severe Headache Verified 06/29/24 14:21 metoprolol AdvReac Intermediate "feel Verified 06/29/24 14:21 spacey" oxycodone AdvReac Mild Headache Verified 06/29/24 20:32 Consultations 06/29/24 17:35 ED Decision to Admit Stat 06/29/24 21:12 Consult Cardiology Routine 07/02/24 15:58 Consult Clinical Psychologist Licensed Routine 07/06/24 07:55 Consult Infectious Diseases Routine Procedures Performed Operation Date: 07/02/24 12:30 Actual Procedures p Cineradiography w/Routine Exam - Rashaun Felix MD p Cath, Left with Cors and Vent - Rashaun Felix MD s Drug Eluting Stent SGl Vessel - Elbert Harris MD s IVUS Coronary Single Vessel - Elbert Harris MD Ordered Studies 06/29/24 09:47 CT abd pelvis IV con only Stat FINDINGS: There is no evidence of abdominal aortic aneurysm or dissection. The major aortic branches are patent. While there are calcified plaques at the origins of the celiac axis, SMA, and renal arteries, there is no significant stenosis appreciated. The SERGO is patent. The iliac arteries are tortuous with no evidence of aneurysm or dissection. Soft tissue abdominal findings were previously described in the abdomen and pelvic CT on the same date IMPRESSION: No evidence of aneurysm, significant stenosis, or occlusive disease involving the abdominal aorta and its branches. 06/29/24 12:21 CT angio abdomen pelvis w con Stat CT angio chest dissec wo/w con Stat FINDINGS: No intramural hematoma or thoracic aortic dissection is present. Caliber of the ascending aorta Kathy limits of normal, measuring 3.8 cm. There is focal aneurysmal dilatation of the mid descending thoracic aorta measuring 3.6 cm. This has slightly increased since CT of June 21, 2023 when it measured 3.4 cm. The heart is moderately enlarged. There is no pericardial effusion. There are no pulmonary emboli. No thoracic lymphadenopathy. No pneumothorax or pleural effusion. No fractures within the bony thorax. Scattered alveolar opacities within the bilateral lower lobes are present. IMPRESSION: 1. No thoracic aortic dissection. 2. Aneurysmal dilatation of the mid descending thoracic aorta measuring 3.6 cm, slightly increased since CT of June 21, 2023. 3. Mild alveolar opacities within the lower lobes suggestive of an infectious process. 4. Cardiomegaly. 06/29/24 20:30 CT head/brain wo con Stat FINDINGS: Brain: Unremarkable. No hemorrhage. No significant white matter disease. No edema. Ventricles: Unremarkable. No ventriculomegaly. Bones/joints: Unremarkable. No acute fracture. Soft tissues: Unremarkable. Sinuses: Unremarkable as visualized. No acute sinusitis. Mastoid air cells: Unremarkable as visualized. No mastoid effusion. IMPRESSION: No evidence of acute intracranial pathology. 07/02/24 12:22 CL Cath Imgs for PACS use only Routine 07/02/24 16:01 CL IVUS Coronary Single Vessel Routine 07/05/24 20:37 CT Abd and Pelvis [CT abd pelvis IV con only] Stat ABDOMEN: Liver: The liver is enlarged and of diffuse decreased attenuation. Gallbladder and bile ducts: The patient is status post cholecystectomy.. No ductal dilation. Pancreas: No mass. No ductal dilation. Spleen: No splenomegaly. Adrenals: No mass. Kidneys and ureters: No hydronephrosis. There are rounded lucencies within the kidneys. Stomach and bowel: There are retained foodstuffs within the stomach. There is air and stool noted in the colon. There are diverticula present on the colon. No significant inflammatory changes are seen.. PELVIS: Appendix: Unremarkable CT scan appearance noted the appendix.. Bladder: No calculi are noted within the bladder.. Reproductive: The patient appears to be status post hysterectomy. ABDOMEN and PELVIS: Intraperitoneal space: No free air. No significant fluid collection. Bones/joints: There are degenerative changes in the spine. Soft tissues: There is a ventral abdominal wall hernia containing fat.. Vasculature: There are atherosclerotic changes. No abdominal aortic aneurysm. Lymph nodes: No enlarged lymph nodes. IMPRESSION: Diverticulosis. The liver is enlarged and of diffuse decreased attenuation which may be due to fatty infiltration. There are possible bilateral renal cysts. See discussion above CT angio chest PE protocol Stat FINDINGS: Artifact degrades image quality somewhat limiting the exam. Pulmonary arteries: No pulmonary embolism is seen. There is dilatation of the main pulmonary artery. Aorta: No thoracic aortic aneurysm or dissection. Lungs: There are mild patchy bilateral groundglass infiltrates. There are bibasilar areas of scarring and/or atelectasis.. Pleural space: No significant effusion. No pneumothorax. Heart: The heart is enlarged and contains coronary artery calcifications Bones/joints: There are degenerative changes in the spine. Soft tissues: A loop recording device is noted in the left anterior chest wall.. Lymph nodes: There are small mediastinal lymph nodes.. IMPRESSION: No pulmonary embolism is seen. There is dilatation of the main pulmonary artery which can be seen with pulmonary hypertension. There are mild patchy bilateral groundglass infiltrates. There are bibasilar areas of scarring and/or atelectasis.. The heart is enlarged and contains coronary artery calcifications 07/06/24 US venous doppler LE BI Routine FINDINGS: There is normal compressibility, flow, and augmentation within the bilateral lower extremity deep venous systems. IMPRESSION: No DVT within the right or left lower extremity. Hospital Course (1) NSTEMI (non-ST elevated myocardial infarction): NSTEMI H/O Nonocclusive CAD --Chest CTA:No thoracic aortic dissection. Aneurysmal dilatation of the mid descending thoracic aorta measuring 3.6 cm, slightly increased since CT of June 21, 2023. Mild alveolar opacities within the lower lobes suggestive of an infectious process. Cardiomegaly. -- Elevated troponin --Normal TSH --Echo: EF 55 to 60%. Right ventricle is mildly dilated. Right ventricular systolic pressure is normal. No significant valvular disease. Moderate sized apical, septal, anteroseptal wall motion abnormality with hypokinesis of the segments. --HbA1c 5.9 -- Total cholesterol 222, triglycerides 184, LDL 144 --S/P cardiac catheterization and PCI: Successful PCI of proximal to mid LAD with single drug-eluting stent. Procedure complicated by mid OM1 dissection treated with additional MIRIAM (2.25 x 15 Weir). Residual dissection/no reflow in medial, distal branch of OM1 downstream from stents. -- IV heparin, IV nitroglycerin discontinued --Continue aspirin, Plavix, metoprolol, isosorbide, lisinopril, statin --> d/t low BP isosorbide stopped, lisinopril on hold --Diltiazem discontinued Appreciate cardiology, critical care input Downgraded to PCU on 07/03 07/04 Today reports feeling somewhat worse, reports chest pressure - discussed w/ cardiology - plan to obtain echo today -> Echo obtained - unremarkable Multifocal ed pneumonia--POA Reports chronic cough due to COPD --CTA:Mild alveolar opacities within the lower lobes suggestive of an infectious process --Normal procalcitonin --BioFire negative --Blood cultures-negative to date- Continued Rocephin, doxycycline (doxy re-ordered as not seen ordered now) 07/04 Pt febrile 38.2C last night, WBC up at 18K sputum cultx ordered 07/05 Pt is feeling better since zosyn started (07/04 evening). Fever better controlled, but still has some spikes of temp. WBC down to 14K Sputum cultx - 07/04 - normal ce Blood cultx 07/01 - negative 07/05 Repeat blood cultx - positive for Gram positive bacili --> (07/09/24) contacted lab - no further identification available at this time. Discussed w/ ID - follow up on blood cultx Vancomycin was added as pt still spikes temp. 07/06 Pt reports cough improved. WBC down to 12K Pt hypotensive overnight - required saline boluses Hgb been low -> CT chest abd pelvis was obtained -- imaging unremarkable ID consulted - awaiting recs 07/07 WBC down to 10 K, Last fever 07/06 evening Discussed w/ cardiology yesterday and Cardiac meds adjusted to prevent further hypotension. ? Fever from poss. inflammation? ID consult placed - awaiting recs 07/08 WBC down to 9.7K, Last fever 07/07 evening 38.1C - plan as above, to discuss w/ ID on Tuesday for further recs 07/09 - discussed w/ lab and ID as repeat blood cultx positive for GPB - further identification pending 07/10 Blood cultx positive for Corynebacterium, discussed w/ ID - likely contaminant Had fever last evening 38.7C Pt reports hx of recurrent sinusitis cough has resolved Will DC on augmentin to finish treatment of sinusitis/pna. Pt will be closely following up w/her PCP and ENT Hyperlipidemia H/O atorvastatin intolerance Continue pravastatin Gastroenteritis --CT ABD: No acute process is identified in the abdomen and pelvis. Chronic findings include a 3.5 cm descending thoracic aortic aneurysm and a fat- containing ventral hernia just above the umbilicus. This hernia has increased from 3 to 4 cm since the prior study. --Stool studies pending --Tolerating current diet Thoracic aortic aneurysm Incidental finding on CT Advised to follow-up as outpatient Morbid obesity BMI 42 Paroxysmal atrial fibrillation S/P ablation, post ablation pericarditis Cardizem stopped -> metoprolol, cardiology following closely GERD Continue PPI RLS On ropinirole as needed Hypertension Continue current medications Monitor COPD Chronic cough Continue home medications EUSEBIA on CPAP Prediabetes HbA1c 5.9 H/O Endometrial cancer S/P surgery hysterectomy in 04/2024 at [facility] Total Time Total Time Spent Total Time Spent (In Minutes): 40 Discharge Plan Discharge Items Patient Disposition: Home - Self-Care Reason For Visit: ACS Discharge Diagnosis: NSTEMI s/p stent multifocal pneumonia, sinusitis Activity: Per Instructions section Non-emergency contact: Primary Care Provider and Pediatric Allergist Call non-emergency contact if: you have any medication questions and your symptoms worsen Follow-up/Referrals: Rosy Cummins PA-C [Primary Care Provider] - (Date & Time 07/13/2024 1:00 PM Provider: Rosy Cummins PA-C [facility] ) Diet: Heart Healthy Addtl Attending Provider Instructions: Follow up with your primary care doctor and hotel front desk agent. The appointment with your primary care doctor was scheduled for 07/13/2024. Take aspirin, plavix and metoprolol. Stop taking diltiazem. Finish antibiotic course as prescribed. Recommend taking guaifenesin. For now, do not take lisinopril. Monitor your blood pressure at home if able and record your numbers. Pending Studies at Discharge: Yes Studies:: final blood cultx results Stand-Alone Forms: My [facility] [employer], Smoking Cessation Medications and DC Order Prescriptions: New aspirin 81 mg Tablet,Delayed Release (Dr/Ec) 81 mg PO DAILY Qty: 30 0RF guaifenesin [Mucinex] 600 mg Tablet Extended Release 12hr 600 mg PO Q12 Qty: 14 0RF metoprolol succinate 25 mg Tablet Extended Release 24 Hr 25 mg PO BID Qty: 60 0RF clopidogrel 75 mg Tablet 75 mg PO QAM Qty: 30 0RF amoxicillin-pot clavulanate 875-125 mg tablet 1 tab PO BID 4 Days Qty: 8 0RF pravastatin 40 mg Tablet 40 mg PO HS Qty: 30 0RF Continued multivitamin [Multiple Vitamins] Tablet 1 tab PO QAM omeprazole 40 mg capsule,delayed release(DR/EC) 40 mg PO QAM nitroglycerin 0.4 mg tablet, sublingual 0.4 mg Sublingual UD PRN (Reason: Chest Pain) cholecalciferol (vitamin D3) [Vitamin D3] 50 mcg (2,000 unit) Tablet 4,000 unit PO QAM montelukast [Singulair] 10 mg Tablet 10 mg PO QAM gabapentin 100 mg capsule 200 mg PO UD Rx Instructions: 100 mg qam; 200 mg qdl; 100 mg hs ropinirole 0.25 mg tablet 0.25 mg PO HS PRN (Reason: restless leg syndrome) clobetasol 0.05 % ointment 1 applic TOPICAL DAILY ferrous sulfate [iron] 325 mg (65 mg iron) Tablet 325 mg PO DAILY Held lisinopril 10 mg tablet 20 mg PO DAILY Hold Instructions: Resume on 07/13/24. until seen by primary care doctor or hotel front desk agent Discontinued diltiazem HCl 120 mg Capsule,Extended Release 24 Hr 120 mg PO HS Discharge Orders: Discharge Order (Routine); Ordered 07/10/24 Ordered By: Aldo Felix Admission Data Admit Date/Time: 06/29/24 19:58 Attending Provider: Aldo Felix Admit Provider: Rolo Solorzano Primary Care Provider: Rosy Cummins Other Providers: Juaquin Murguia; Aldo Felix; Anitha Tomlinson; Gatito Hill; Marguerite Arroyo; Bill Nunez I.; Avery Pedroza II; Lois Landrum; Jay Best; Jeffery Kimbrough; Luis Jacobsen; Zen Verdin; Narayan Ayala
== END 2024-07-10 12:17 | disposition home or self-care (01) | DRG 321 ==
LOC: ED 09:25 → EDINP 09:25 → SUATTDRO 19:58 → OBSVTOIN 19:58 → 2S 20:30 → 1E 07-02 15:46 → 2S 07-03 22:10 → 2N 07-08 14:45

== ENCOUNTER 2024-07-14 22:57 | Inpatient (IN) ==
--- OUTSIDE RECORDS SUMMARY | 2024-07-14 23:05 | External Medical Summary | Summary of Care ---
Author Name Unknown Organization [facility] Address [address] [address] [address] [address] Phone [phone] Care Team Providers Care Heel Cementer Machine Name Role Phone Rosy Cummins PA-C Primary Care Provider [phone] Encounter Details Date Type Department Care Team (Late st Contact Info) Description 07/02/2024 Result Scan Unspecified Department <No scans attached> Allergies Active Allergy Reactions Criticality Noted Date Comments Azelastine Nausea/vomiting 12/29/2023 Cetirizine Other (Please comment) 11/22/2021 headache Latex Rash 10/14/2021 Metoprolol Unknown 10/14/2021 Sulfa Antibiotics 08/13/2002 bactrim only-itching afater 1 week Tartaric Acid Unknown 10/14/2021 Valacyclovir 11/23/2022 Renal calculi documented as of this encounter (statuses as of 07/03/2024) Medications Multiple Vitamins-Minerals (DAILY MULTIVITAMIN) CAPS Take [...] Capsule 1 5 3:40 PM EST 06/22/19 Active Hospital, Clinic, or Other Facility Administered Medication Ordered Dose Route Frequency Start Date End Date Status Vitamin B-12 (Cyanocobalamin) inj 1,000 mcgIndications:B12 deficiency 1000 mcg IM [id number] 01/27/2024 12/28/2024 Active documented as of this encounter (statuses as of 07/03/2024) Active Problems Problem Noted Date Diagnosed Date Endometrial cancer 03/28/2024 Cancer Staging:Clinical stage from 04/30/2024:FIGO Stage IA(cT0, cN0, cM0) - Signed by Shekhar Belle MD on 05/05/2024 Chronic obstructive pulmonary disease 01/27/2024 Old [place] (myocardial infarction) 01/27/2024 Prediabetes 12/19/2023 Overview: Per [...] as of this encounter (statuses as of 07/03/2024) Resolved Problems Problem Noted Date Diagnosed Date [...] as of this encounter (statuses as of 07/03/2024) Immunizations Name Administration Dates Next Due Pneumococcal Conjugate Vacci ne, 20-valent ([id number]) 04/08/2023 Pneumococcal Polysaccharide PPV23 (Pneumovax) 03/20/2016 Seasonal [...] 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, 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 Not on file documented as of this encounter Plan of Treatment Upcoming Encounters Date Type Department Care Team (Late st Contact Info) Description 07/11/2024 2:40 PM EST Nurse Only Family Practice [address] [facility] [address] [place] [address] College, Nurse Fam Prac [address] [place] [address] 07/11/2024 3:00 PM EST Office Visit Family Practice [address] [facility] [address] [place] [address] Shekhar Fontaine, [address] [place] [address] 07/24/2024 1:30 PM EDT Office Visit Interventional Pain Center [facility] [address] [place] [id number] Della Guevara PA-C [address] [facility] [place] [address] 07/31/2024 11:00 AM EDT Office Visit [facility] [place] [place] [address] [place] [address] Erica Kaufman CRNP [address] [place] [address] 08/01/2024 10:15 AM EDT Office Visit Orthopaedics [facility] [address] [place] [id number] Salinas Levine PA-C [address] [place] [phone] 08/08/2024 1:30 PM EDT Office Visit Cardiology, [facility] [address] [place] [id number] Rashaun Felix MD [address] [place] [id number] 08/18/2024 1:40 PM EDT Office Visit Family Practice [facility] [address] [place] [id number] Rosy Cummins PA-C [address] [facility] [place] [address] 09/17/2024 11:30 AM EDT Office Visit Cardiology, [facility] [address] [facility] [place] [address] Rashaun Felix MD [address] [place] [address] 09/25/2024 11:30 AM EDT Office Visit Gynecology/Oncology, [place] [address] [place] [address] Дмитрий Love PA-C [address] [place] [address] Scheduled Procedures Name Priority Associated Diagnoses Date/Ti [...] this encounter Medical Devices Implanted Type Area Hospitality Coordinator Device Identifier Shelf Expiration Date Model / Serial / Lot Lens Intraoc 11.5 - [id number] - [id number] Implanted:Qty: 1 on 12/18/2019 by Azam Boo MD at OR [facility] Left: Eye [employer] 10/06/2021 [id number] / [id number] / Lens Intraoc 11.5 - [id number] - [id number] Implanted:Qty: 1 on 12/31/2019 by Azam Boo MD at OR [facility] Right: Eye [employer]OM[employer] 07/06/2024 [id number] / [id number] / [id number] documented as of this encounter Procedures Procedure Name Priority Date/Time Associated Diagnosis Comments CARDIAC CATH SCANNED RESULT 07/02/2024 documented in this encounter Results * CARDIAC CATH SCANNED RESULT (07/02/2024) 07/02/2024 us No Physician Data Unknown CARD CATH Final Result documented in this encounter Advance [...] and were consensually agreed upon. Care Teams Heel Cementer Machine Relationship Specialty Start Date End Date Rosy Cummins PA-C [address] [place] [address] PCP - General Physician Delinquent Tax Collection Assistant 04/30/24 documented as of this encounter
[2024-07-14 23:54] LABS: Hematocrit (blood only) 29.8 % (37.0-47.0); Hemoglobin 9.5 g/dl (12.0-16.0); Mean Corpuscular Hemoglobin 27.1 pg (25.0-34.0); Mean Corpuscular Hgb Conc 31.9 g/dL (32.0-36.0); Mean Corpuscular Volume 84.9 fL (80.0-100.0); Red Blood Count 3.51 M/uL (4.20-5.40); White Blood Count 11.71 K/ul (4.8-10.8)
[2024-07-14 23:55] LABS: Basophils # (auto) 0.07 K/uL (0.00-0.20); Basophils % (auto) 0.6 %; Eosinophils % (auto) 1.7 %; Immature Granulocytes # (auto) 0.08 K/uL (0.01-0.20); Immature Granulocytes % (auto) 0.7 %; Lymphocytes % (auto) 19.6 %; Mean Platelet Volume 9.1 fL (9.4-12.4); Monocytes # (auto) 0.68 K/uL (0.11-0.59); Monocytes % (auto) 5.8 %; Neutrophils # (auto) 8.38 K/uL (1.40-6.50); Neutrophils % (auto) 71.6 %; Platelet Count 478 K/uL (130-400); RDW Coefficient of Variation 13.4 % (11.5-14.5); RDW Standard Deviation 41.1 fL (36.4-46.3)
[2024-07-15 00:14] LABS: Albumin Level 3.8 gm/dl (3.4-5.0); BUN Creatinine Ratio 17.7 (10-20); Bilirubin,Total 0.2 mg/dl (0.2-1.0); Calcium 9.5 mg/dl (8.6-10.3); Creatinine Clr Calc Pharmacy 96.5 ml/min; Globulin 3.7 gm/dl (2.5-4.0); Potassium 3.7 mmol/L (3.5-5.1); Total Protein 7.5 gm/dl (6.0-8.3)
[2024-07-15 00:27] LABS: Troponin I High Sensitivity 437.6 pg/ml (0-14)
--- NOTE | 2024-07-15 00:34 | CT Scan Report ---
EXAM: CT head/brain wo con CLINICAL HISTORY: altered ms TECHNIQUE: Multiple axial images are obtained from the skull base to the vertex without contrast. CT scan was performed according to ALARA (as low as reasonable achievable). COMPARISON: jul 03 FINDINGS: There is cerebral atrophy. No evidence of space occupying lesion, hemorrhage, edema, mass effect, midline shift, extra axial collection, or hydrocephalus is noted. Basal cisterns are symmetric and normal in size and configuration. There are scattered periventricular hypodensities as can be seen with chronic microvascular ischemic changes. The barnett-white matter differentiation is preserved. Visualized paranasal sinuses and mastoid air cells are well aerated. Orbital contents are within normal limits. Bony structures are intact. IMPRESSION: 1. No evidence of acute intracranial abnormality is demonstrated. 2. Chronic microvascular ischemic changes. 3. Cerebral atrophy. No new interval changes since prior study. Electronically signed by Joel Rankin 07-15-2024 12:33 AM
[2024-07-15 00:45] LABS: Appearance Urine Clear (Clear); Bilirubin Urine Negative (Negative); Blood Urine Negative (Negative); Color Urine Yellow; Glucose Urine UA Negative (Negative); Ketones Urine Negative (Negative); Leukocyte Esterase Urine Negative (Negative); Nitrite Urine Negative (Negative); Protein Urine Negative (Negative); Urobilinogen Urine Negative (Negative); pH Urine 5.5 (4.5-7.5)
--- NOTE | 2024-07-15 01:08 | XRay Report ---
EXAM: XR chest 1V portable CLINICAL HISTORY: Chest pain, nonspecific. TECHNIQUE: An X-ray image of the chest is obtained in AP projection. COMPARISON: 07/04/2024, 06/29/2024 FINDINGS: Pulmonary Parenchyma: Accentuated bronchovascular markings bilaterally. Increased shadowing in both lower lung zones. No evidence of pleural effusion or pleural thickening. Heart and Mediastinum: Mild cardiomegaly. Widened superior mediastinum. Cardiac loop recorder noted Bony Thorax: Bony thorax appears intact without fractures or deformities. Soft Tissues: Soft tissues overlying the chest wall are unremarkable. IMPRESSION: 1. Mild cardiomegaly with suggestion of congestive changes. (new) 2. Increased shadowing in both lower lung zones (new) could be part of congestive, inflammatory infiltrates or could still be due to overlying soft tissues. 3. Compared to the previous interval, new findings. Electronically signed by Nik Mcclure 07-15-2024 01:07 AM
[2024-07-15] MEDS: NITROGLYCERIN SL 0.4 MG/TAB TAB SL STA (01:58)
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
[2024-07-15 03:22] LABS: Troponin I High Sensitivity 741.9 pg/ml (0-14)
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
[2024-07-15 03:33] LABS: Partial Thromboplastin Time 26 Seconds (21-31)
[2024-07-15 03:42] LABS: Magnesium 1.8 mg/dl (1.7-2.4)
[2024-07-15] MEDS ORDERED: rOPINIRole HCL 0.25 MG TABLET PO PRN (04:06)
[2024-07-15] MEDS ORDERED: Heparin IV Adult Wt-Based Standard *NO* INITIAL Bolus Protocol IV STA (04:06)
[2024-07-15] MEDS ORDERED: MoRPHine SULFATE 4 MG/ML 1 ML CARP\\VIAL IV PRN (04:08)
[2024-07-15] MEDS ORDERED: oxyCODONE HCL IR 5 MG TAB (IMMEDIATE RELEASE) PO PRN (04:08)
[2024-07-15] MEDS ORDERED: PROMETHAZINE 6.25 MG/50.25 ML BAG IV PRN (04:08)
[2024-07-15] MEDS ORDERED: NITROGLYCERIN SL 0.4 MG/TAB TAB SL PRN (04:11)
[2024-07-15] MEDS ORDERED: traMADol HCL 50 MG TABLET PO PRN (04:11)
[2024-07-15] MEDS: MAGNESIUM SULFATE / D5W 1 GM/100 ML BAG IV ONE (04:47)
[2024-07-15] MEDS: HEPARIN 25000 UNIT/500 ML D5W 25,000 UNITS/500 ML BAG IV SCH (04:47)
[2024-07-15] MEDS: FUROSEMIDE INJ 20 MG/2 ML VIAL IV STA (04:47)
[2024-07-15] MEDS: CLOPIDOGREL BISULFATE 75 MG TAB PO SCH (05:33)
[2024-07-15] MEDS: POTASSIUM CHLORIDE CRTAB 20 MEQ TABCR PO STA (05:33)
[2024-07-15] MEDS: PANTOprazole 40 MG TAB PO SCH (05:33)
[2024-07-15] MEDS: ASPIRIN 81 MG ECTAB PO SCH (05:33)
[2024-07-15 05:45] LABS: Basophils # (auto) 0.06 K/uL (0.00-0.20); Basophils % (auto) 0.5 %; Eosinophils # (auto) 0.22 K/uL (0.00-0.50); Hematocrit (blood only) 29.6 % (37.0-47.0); Hemoglobin 9.4 g/dl (12.0-16.0); Immature Granulocytes # (auto) 0.07 K/uL (0.01-0.20); Immature Granulocytes % (auto) 0.6 %; Lymphocytes # (auto) 3.08 K/uL (1.20-3.40); Lymphocytes % (auto) 27.5 %; Mean Corpuscular Hemoglobin 27.2 pg (25.0-34.0); Mean Corpuscular Hgb Conc 31.8 g/dL (32.0-36.0); Mean Corpuscular Volume 85.8 fL (80.0-100.0); Mean Platelet Volume 9.3 fL (9.4-12.4); Monocytes # (auto) 0.67 K/uL (0.11-0.59); Neutrophils # (auto) 7.08 K/uL (1.40-6.50); Neutrophils % (auto) 63.4 %; Platelet Count 490 K/uL (130-400); RDW Coefficient of Variation 13.6 % (11.5-14.5); RDW Standard Deviation 41.8 fL (36.4-46.3); Red Blood Count 3.45 M/uL (4.20-5.40); White Blood Count 11.18 K/ul (4.8-10.8)
[2024-07-15 06:02] LABS: BUN Creatinine Ratio 16.2 (10-20); Calcium 9.6 mg/dl (8.6-10.3)
[2024-07-15 06:19] LABS: Troponin I High Sensitivity 1156.3 pg/ml (0-14)
[2024-07-15] MEDS: METOPROLOL SUCC 25MG EXT REL TAB PO SCH (08:13)
[2024-07-15] MEDS: lisinopril 20 MG TAB PO SCH (08:13)
[2024-07-15] MEDS: FERROUS SULFATE 325 MG TAB PO SCH (08:13)
[2024-07-15] MEDS: MONTELUKAST SODIUM 10 MG TABLET PO SCH (08:13)
[2024-07-15] MEDS: CEROVITE ADV FORMULA TAB PO SCH (08:13)
[2024-07-15] MEDS ORDERED: dilTIAZem HCL 120 MG CAPCR PO SCH (09:00)
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
[2024-07-15 12:37] LABS: ANTI-Xa, UFH(UnfractionatedHep 0.24 IU/ml (0.3-0.7)
--- NOTE | 2024-07-15 13:59 | Hospitalist Progress Note ---
Date of Service July 15, 2024 Assessment & Plan (1) Non-ST elevation SC (NSTEMI): Plan: NSTEMI Mitral valve vegetation Vs Thrombus H/O stent to the LAD and prox LCx marginal complicated by dissection of the LCx with branch vessel occlusion and periprocedural SC in Jun 2024 ?? Stent stenosis --CXR:Mild cardiomegaly with suggestion of congestive changes --ECHO: Vegetation thrombus. Left ventricle EF 40 to 45%. Large sized apical, anterior, posterior and lateral wall motion abnormality with hypokinesis of the segments. Mild mitral regurgitation. Large mobile echodense mass measuring 1.4 cm on the valvular side of the posterior mitral leaflet possible vegetation, thrombus. -?? Medication compliance -- Continue aspirin, Plavix, metoprolol, lisinopril, statin Continue IV heparin Will likely need KELSEA for further evaluation of mitral valve/mass Consider empiric IV antibiotics for possible infective endocarditis. Will await for cardiology recommendations Appreciate cardiology input Check nasal MRSA Acute on chronic systolic and diastolic dysfunction Ischemic cardiomyopathy Monitor volume status closely Consider diuretics when appropriate Paroxysmal atrial fibrillation S/P ablation, post ablation pericarditis Continue metoprolol Thoracic aortic aneurysm Continue current medication Follow-up as outpatient Hyperlipidemia Continue statin Hypertension Continue metoprolol, lisinopril Monitor blood pressure COPD EUSEBIA on CPAP No signs of exacerbation Monitor Morbid obesity BMI 39.7 Prediabetes HbA1c 5.9 H/O Endometrial cancer S/P surgery DVT Px: IV heparin Code Status Full code Admission and Anticipated Discharge Date Admission Date: July 15, 2024 Subjective Patient is seen and examined at bedside States feeling tired today Denies any chest pain, dyspnea, nausea, vomiting, abdominal pain Discussed with cardiology today Review of Systems Review of Systems: All systems reviewed & are unremarkable except as noted in Subjective Physical Exam Physical Exam: Physical Exam: Vitals signs as noted above General Appearance:Morbidly Obese, no apparent distress Head: normocephalic, Atraumatic Eyes: normal inspection, EOMI Neck: supple, Trachea midline Respiratory/Chest: Normal breath sounds, CTA, No accessory muscle use Cardiovascular: S1, S2, no murmur Abdomen/GI:Soft, mild tender, Bowel sounds present Extremities/Musculoskeletal:normal inspection, no edema Neurologic/Psych:AAOX3, grossly no focal neurological deficits Skin: normal color, warm Results & Data Results & Data Vital Signs (Past 12 Hours) Vital Signs Temp Pulse Pulse Resp BP BP Pulse Ox 07/15/24 12:30 36.9 C 71 18 139/77 96 07/15/24 11:00 67 24 124/71 95 07/15/24 10:30 139/78 07/15/24 10:06 70 22 139/78 96 07/15/24 10:00 71 21 96 07/15/24 09:36 73 20 93 07/15/24 08:51 72 24 136/72 93 07/15/24 08:30 71 22 139/75 96 07/15/24 08:00 07/15/24 07:13 78 07/15/24 07:02 07/15/24 06:59 76 16 132/77 97 07/15/24 06:59 96 07/15/24 06:36 72 21 134/73 96 07/15/24 06:00 75 17 142/75 H 97 07/15/24 05:42 74 16 139/70 97 07/15/24 05:00 76 13 165/120 H 96 07/15/24 04:30 73 20 129/64 95 07/15/24 04:12 74 16 136/76 95 07/15/24 04:06 74 16 123/77 97 07/15/24 03:48 75 23 137/80 97 07/15/24 03:37 76 07/15/24 03:30 76 24 140/81 95 07/15/24 01:55 73 20 151/91 H 96 Pulse Ox O2 Del Method O2 Del Method O2 Flow Rate O2 Flow Rate 07/15/24 12:30 Nasal Cannula 2 07/15/24 11:00 Nasal Cannula 2 07/15/24 10:30 07/15/24 10:06 Nasal Cannula 2 07/15/24 10:00 Nasal Cannula 2 07/15/24 09:36 Nasal Cannula 2 07/15/24 08:51 Nasal Cannula 2 07/15/24 08:30 Nasal Cannula 2 07/15/24 08:00 97 Nasal Cannula 2 07/15/24 07:13 07/15/24 07:02 97 Nasal Cannula 2 07/15/24 06:59 Nasal Cannula 2 07/15/24 06:59 Nasal Cannula 2 07/15/24 06:36 07/15/24 06:00 07/15/24 05:42 07/15/24 05:00 07/15/24 04:30 07/15/24 04:12 07/15/24 04:06 07/15/24 03:48 07/15/24 03:37 07/15/24 03:30 07/15/24 01:55 Nasal Cannula 2 Laboratory Results Short CBC 07/14/24 07/15/24 Range/Units 23:43 05:12 WBC 11.71 H 11.18 H (4.8-10.8) K/ul Hgb 9.5 L 9.4 L (12.0-16.0) g/dl Hct 29.8 L 29.6 L (37.0-47.0) % Plt Count 478 H 490 H (130-400) K/uL BMP 07/14/24 07/15/24 23:43 05:12 Sodium 143 142 Potassium 3.7 4.0 Chloride 110 H 108 H Carbon Dioxide 26 28 BUN 11 11 Creatinine 0.62 0.68 Glucose 109 H 106 H Calcium 9.5 9.6 Liver Function 07/14/24 Range/Units 23:43 Total Bilirubin 0.2 (0.2-1.0) mg/dl AST 15 (13-39) U/L ALT 16 (7-52) U/L Alkaline Phosphatase 51 (34-104) U/L Albumin 3.8 (3.4-5.0) gm/dl Urine 07/15/24 Range/Units 00:27 Urine Color Yellow Urine Appearance Clear (Clear) Urine pH 5.5 (4.5-7.5) Ur Specific Deloit 1.010 (1.000-1.030) Urine Protein Negative (Negative) Urine Glucose (UA) Negative (Negative)
[2024-07-15] MEDS: ACETAMINOPHEN 325 MG TAB PO PRN (14:43)
[2024-07-15] MEDS ORDERED: VANCOMYCIN CONSULT ACTIVE PRN (15:15)
[2024-07-15] MEDS ORDERED: VANCOMYCIN HCL 1,000 MG/270 ML BAG IV ONE (15:15)
[2024-07-15] MEDS ORDERED: cefTRIAXone SODIUM 2,000 MG/50 ML BAG IV SCH (16:00)
[2024-07-15] MEDS: VANCOMYCIN HCL 2,000 MG in SODIUM CHLORIDE 0.9% 500 ML IV ONE (16:05)
[2024-07-15] MEDS: cefTRIAXone SODIUM 2,000 MG/50 ML BAG IV SCH (16:13)
--- NOTE | 2024-07-15 16:30 | Communication Note ---
Date of Service: July 15, 2024 Tried to reach patient's daughter over the phone. No answer. Left voicemail.
--- NOTE | 2024-07-15 16:48 | Pharmacy Report ---
Pharmacy PK ABX Note - Date of Service July 15, 2024 - Assessment and Plan Assessment 69 year old F receiving Vancomycin and Ceftriaxone for treatment of endocarditis. * Day #1 of antimicrobial therapy. * Afebrile. Mild leukocytosis. SCr 0.68 mg/dL, near baseline. Blood cultures and MRSA swab pending. * TTE confirmed vegetation on mitral valve today. Possible transfer for KELSEA. Plan Vancomycin * Loading dose: 2000 mg IV x 1 * Maintenance dose: 1250 mg IV every 12 hours * Regimen is predicted to achieve target AUC/DENISHA of 400-600 mg/L.hr * Random level ordered for: 07/17/24 Ceftriaxone * 2000 mg IV every 12 hours Pharmacy will continue to follow and will adjust dose/frequency as necessary. Thank you. Pharmacy has transitioned to AUC monitoring for vancomycin. AUC/DENISHA is the preferred PK/PD target and is associated with decreased risk of nephrotoxicity compared to traditional trough targets.
[2024-07-15] MEDS: GADOBUTROL 10ML VIAL IV ONE (17:08)
--- NOTE | 2024-07-15 18:45 | Magnetic Resonance Report ---
EXAM: MR brain wo/w con CLINICAL HISTORY: Rule out Stroke, Confusion. TECHNIQUE: MRI of the brain was performed with and without intravenous contrast administration. Sequences obtained include pre-contrast and post-contrast T1-weighted, T2-weighted, FLAIR (Fluid-Attenuated Inversion Recovery), DWI (Diffusion-Weighted Imaging), and ADC (Apparent Diffusion Coefficient) sequences. COMPARISON: Comparison is made with prior imaging studies dated 07/13/2024. FINDINGS: Brain Parenchyma: Mild age-related cerebral involutional changes were noted. Multiple small deep periventricular white matter abnormal foci of altered signals with low T1, Bright T2 and FLAIR WIs signals, no diffusion restriction or abnormal post-contrast enhancement depicted. Left deep cerebellar small focus of altered signals with faint bright bright T2 with mild diffusion restriction noted, suggesting lacunar infarction. No evidence of acute infarction or hemorrhage. Luis-white matter differentiation is preserved. No abnormal signal intensity lesions were identified. Post-Contrast Findings: Faint patchy white matter abnormal enhancement of a non-specific pattern. Ventricles and Sulci: The ventricular system is mildly dilated. Sulci and cisternal spaces are age-appropriate. Brainstem and Cerebellum: The brainstem and cerebellum are without focal lesions or abnormal enhancement. Partial empty sella is seen. Vessels: Intracranial vessels appear normal without evidence of vascular malformations or aneurysms. Skull and Calvarium: No evidence of skull vault lesions or abnormal marrow signal within the calvarium. IMPRESSION: 1. Mild age-related cerebral involutional changes were noted. 2. Multiple small deep periventricular white matter changes related to small vessel disease. 3. Left deep cerebellar small lacunar infarction noted. Electronically signed by Nik Mcclure 07-15-2024 6:44 PM
[2024-07-15 19:29] LABS: ANTI-Xa, UFH(UnfractionatedHep 0.16 IU/ml (0.3-0.7)
[2024-07-15 19:46] VITALS: BP 106/66; PULSE 67; RESP 20; TEMP 98.8; O2SAT 95
[2024-07-15] MEDS: PRAVASTATIN SOD 40 MG TAB PO SCH (20:11)
[2024-07-15] MEDS: HEPARIN SOD (PORCINE) 1000 UNIT/ML IV ONE (20:14)
--- NOTE | 2024-07-15 22:04 | Discharge Summary ---
Date of Service July 15, 2024 Admission HPI Per Admitting Provider History obtained from patient and records. Patient is a fair historian. Patient struggling to recall some details of recent events. Medical history significant for CAD status post recent stent, PAF status post ablation, post ablation pericarditis, proximal ascending thoracic aorta enlargement, hypertension, hyperlipidemia, COPD, EUSEBIA on CPAP, prediabetes, chronic anemia (baseline hemoglobin 8-9), migraine, endometrial cancer status post surgery, stress incontinence as per records, mood disorder. Recent confinement June 29 to July 10, 2024 for NSTEMI status post stent. Two-vessel CAD status post MIRIAM to mid LAD and proximal left circumflex marginal. Circumflex marginal procedure complicated by dissection with branch occlusion resulting in periprocedural myocardial infarction. Patient also found to have multifocal pneumonia present on admission. Patient discharged home 5 days ago on dual antiplatelet Rx, beta-kam, and Augmentin Rx. Patient had sudden onset left-sided chest tightness going to the arm with shortness of breath, headache, dizziness yesterday. Patient claims to be compliant with no home medications but struggled to name pills upon EMS query as per report. Home meds do not look like they have been touched as per EMS. Patient missed outpatient appointment with PCP 2 days ago for a reason patient cannot remember currently. Patient not taking aspirin daily due to stomach irritation as per patient. Patient currently denies abdominal pain/black/bloody stools. Home freezer concerns as per outpatient PCP notes. Chest pain relieved by nitroglycerin administration at the ER. Patient struggled acknowledging home medications when queried by ED atm technician. 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 Principal Diagnosis NSTEMI, history recent PCI Left cerebellar CVA possibly embolic Possible infective endocarditis Discharge Data Allergies Allergy/AdvReac Type Severity Reaction Status Date / Time Sulfa (Sulfonamide Allergy Intermediate METAL Verified 07/15/24 01:19 Antibiotics) TASTE IN MOUTH, TONGUE SWELLS UP tartaric acid Allergy Unknown Unknown Verified 07/15/24 01:19 valacyclovir [From Valtrex] Allergy Unknown caused Verified 07/15/24 01:19 kidney stones cetirizine [From Zyrte] AdvReac Severe Headache Verified 07/15/24 01:19 metoprolol AdvReac Intermediate "feel Verified 07/15/24 01:19 spacey" oxycodone AdvReac Mild Headache Verified 07/15/24 01:19 Consultations 07/15/24 03:11 ED Decision to Admit Stat 07/15/24 04:08 Consult Cardiology Routine 07/15/24 20:59 Burn CD for patient Stat Ordered Studies 07/14/24 23:48 CT head/brain wo con Stat 07/15/24 15:51 MRI Brain [MR brain wo/w con] Urgent Hospital Course (1) Non-ST elevation [place] (NSTEMI): NSTEMI Mitral valve vegetation Vs Thrombus H/O stent to the LAD and prox LCx marginal complicated by dissection of the LCx with branch vessel occlusion and periprocedural [place] in Jun 2024 ?? Stent stenosis --CXR:Mild cardiomegaly with suggestion of congestive changes --ECHO: Vegetation thrombus. Left ventricle EF 40 to 45%. Large sized apical, anterior, posterior and lateral wall motion abnormality with hypokinesis of the segments. Mild mitral regurgitation. Large mobile echodense mass measuring 1.4 cm on the valvular side of the posterior mitral leaflet possible vegetation, thrombus. -?? Medication compliance -- Continue aspirin, Plavix, metoprolol, lisinopril, statin Continue IV heparin Will likely need KELSEA for further evaluation of mitral valve/mass Consider empiric IV antibiotics for possible infective endocarditis. Appreciate cardiology input Check nasal MRSA Acute on chronic systolic and diastolic dysfunction Ischemic cardiomyopathy Monitor volume status closely Consider diuretics when appropriate Paroxysmal atrial fibrillation S/P ablation, post ablation pericarditis Continue metoprolol Thoracic aortic aneurysm Continue current medication Follow-up as outpatient Hyperlipidemia Continue statin Hypertension Continue metoprolol, lisinopril Monitor blood pressure COPD EUSEBIA on CPAP No signs of exacerbation Monitor Morbid obesity BMI 39.7 Prediabetes HbA1c 5.9 H/O Endometrial cancer S/P surgery DVT Px: IV heparin Code Status Full code (Preceding documentation as per admitting provider.) IV vancomycin and ceftriaxone initiated today for possible infective endocarditis after blood CS obtained following abnormal TTE. Cardiology recommended Brain MRI as part of stroke workup. Brain MRI showed 1. Mild age-related cerebral involutional changes were noted. 2. Multiple small deep periventricular white matter changes related to small vessel disease. 3. Left deep cerebellar small lacunar infarction noted. Telephone Switchboard Operator requested [facility] [place] for further evaluation given complexity. [facility] [place] improvement recommended admission under medical service given other medical issues. Patient kindly accepted for transfer by Dr. Gonzalez of [facility] [place] service. Total time to prepare this discharge summary was less than 10 minutes. Text document was generated using [employer] voice recognition software. It may contain grammatical or spelling errors. Kindly contact undersigned for clarification of any documentation item in question. Total Time Total Time Spent Total Time Spent (In Minutes): 10 Discharge Plan Discharge Items Patient Disposition: Transfer Acute Care Hospital Reason For Visit: CHF, ACS Discharge Diagnosis: NSTEMI Mitral valve vegetation Vs Thrombus Suspected infective endocarditis Suspected stent stenosis Acute on chronic systolic and diastolic dysfunction Ischemic cardiomyopathy Activity: Per Instructions section Non-emergency contact: Primary Care Provider and Telephone Switchboard Operator Call non-emergency contact if: you have any medication questions, your symptoms worsen, your pain is concerning for you and you have a fever Follow-up/Referrals: Rosy Cummins PA-C [Primary Care Provider] - Diet: Heart Healthy Add Attending Provider Instructions: -- Follow-up with your physician at [facility] for further management -- Your omeprazole need to be changed to pantoprazole as it could interact with clopidogrel. Discussed with your physician for further recommendations. --You will likely need transesophageal echocardiogram for further evaluation of your mitral valve. Discussed with your rn document improvement/CT surgeon for further recommendations. Seek immediate medical attention if your symptoms reoccur or worsen Please take all medications as instructed on discharge list below. Please call if you have any questions or problems. You can reach a [facility] hospitalist on duty at [facility] 24 hours a day by calling [phone] Home Care: * Take your medications exactly as directed. Don't skip doses. * Remember that recovery after a heart attack takes time. Plan to rest for at lease 4-8 weeks while you recover. Then return to normal activity when your doctor says it's okay. * Ask your doctor about joining a heart rehabilitation program. * Tell your doctor if you are feeling depressed. Feelings of sadness are common after a heart attack, but it is important that you speak to someone if you are feeling overwhelmed by these feelings. * If you are having chest pain, call 911 for an ambulance. Do NOT drive yourself to the hospital. * Ask your family members to learn CPR. * Learn to take your own blood pressure and pulse. Keep a record of your results. Ask your doctor when you should seek emergency medical attention. He or she will tell you which blood pressure reading is dangerous. Lifestyle Changes: * Maintain a healthy weight. Get help to lose any extra pounds. * Cut back on salt. * Limit canned, dried, packaged, and fast foods. * Don't add salt to your food. * Season foods with herbs instead of salt when you cook. * Break the smoking habit. Enroll in a stop-smoking program to improve your chances of success. * Limit fatty foods. * Ask your doctor about having your lipid levels checked regularly. * Build up your activity according to your doctor's recommendation. * Ask your doctor when it's okay to resume sexual activity. * Tell your doctor about any erectile dysfunction (ED) medication you are taking. Some ED medications are not safe if you take certain heart medications. * Try to manage stress. Follow Up: It is important for you to keep your follow up appointments with your medical provider. Call your Primary Care doctor if any of the following symptoms or problems start or get worse: * Shortness of breath or difficulty breathing * Wake up at night short of breath * Chest pain * Cough * Swelling of your hands, feet, or legs * More fatigued or tired with your normal activity * Palpitations - sudden fast heart beats WEIGHT * Weigh yourself every morning after using the bathroom. * Use the same scale. * Wear the same amount of clothing. * Write your weight down on a chart. * Call your Primary Care doctor if you gain more than 2-3 pounds in 1-2 days. MEDICATIONS * Use this discharge instruction sheet for medication instructions. * Take your medications at the time your doctor ordered. * Do not skip a dose of your medicines. * If you miss a dose of medicine, take it as soon as possible, but DO NOT DOUBLE A DOSE. * Read your medicine information when you get home. * Know all of the side effects of your medicine. If in doubt, ask your pharmacist * Call your Primary Care doctor's office if you have any side effects. * Be sure all of your doctors know what medicine and herbs you take (including cold, flu, and herbal medicine). Take the following with you to your follow-up doctor appointments: * Weight Chart * Medication List * List of questions Do not drink excessive alcohol, beer or wine. Addtl Merchandise Presentation Associate Provider Instructions: Date of Service: July 15, 2024 Current Inpatient Medications Acetaminophen (Acetaminophen 325 Mg Tab) 650 mg PO QID PRN PRN Reason: pain/fever Stop: 08/14/24 04:14 Last Admin: 07/15/24 14:43 Dose: 650 mg Aspirin (Aspirin 81 Mg Ectab) 81 mg PO DAILY [facility] Stop: 08/14/24 04:09 Last Admin: 07/15/24 05:33 Dose: 81 mg Clopidogrel Bisulfate (Clopidogrel Bisulfate 75 Mg Tab) 75 mg PO QAM [facility] Stop: 08/14/24 04:09 Last Admin: 07/15/24 05:33 Dose: 75 mg Ferrous Sulfate (Ferrous Sulfate 325 Mg Tab) 325 mg PO DAILY [facility] Stop: 08/14/24 08:59 Last Admin: 07/15/24 08:13 Dose: 325 mg Heparin Sodium/Dextrose (Heparin 84969 Unit/500 Ml D5w) 25,000 units in 500 mls @ 26 mls/hr IV .[id number] [facility]; Protocol Stop: 08/14/24 04:29 Last Titration: 07/15/24 12:59 Dose: 1,300 units/hr, 26 mls/hr Promethazine HCl (Phenergan) 6.25 mg in 50.25 mls @ 201 mls/hr IV Q6H PRN PRN Reason: Nausea And Vomiting Stop: 08/14/24 04:07 Ceftriaxone Sodium (Rocephin) 2,000 mg in 50 mls @ 100 mls/hr IV Q24H [facility] Stop: 08/26/24 15:59 Vancomycin HCl 2,000 mg/ (Sodium Chloride) 540 mls @ 200 mls/hr IV ONE ONE Stop: 07/15/24 18:26 Lisinopril (Lisinopril 20 Mg Tab) 20 mg PO DAILY [facility] Stop: 08/14/24 08:59 Last Admin: 07/15/24 08:13 Dose: 20 mg Metoprolol Succinate (Metoprolol Succ 25mg Ext Rel Tab) 25 mg PO BID [facility] Stop: 08/14/24 08:59 Last Admin: 07/15/24 08:13 Dose: 25 mg Miscellaneous Information (Vancomycin Consult Active) 1 each N/A UD PRN PRN Reason: Consult Stop: 08/14/24 15:14 Montelukast Sodium (Montelukast Sodium 10 Mg Tablet) 10 mg PO QAM [facility] Stop: 08/14/24 08:59 Last Admin: 07/15/24 08:13 Dose: 10 mg Morphine Sulfate (Morphine Sulfate 4 Mg/Ml 1 Ml Carp\\Vial) 4 mg IV Q4H PRN PRN Reason: Pain Stop: 07/29/24 04:07 Multivitamins/Minerals (Cerovite Adv Formula Tab) 1 tab PO QAM [place] Stop: 08/14/24 08:59 Last Admin: 07/15/24 08:13 Dose: 1 tab Nitroglycerin (Nitroglycerin Sl 0.4 Mg/Tab Tab) 0.4 mg SL Q5M PRN PRN Reason: Chest Pain Stop: 08/14/24 04:10 Pantoprazole Sodium (Pantoprazole 40 Mg Tab) 40 mg PO BID [facility] Stop: 08/14/24 04:09 Last Admin: 07/15/24 05:33 Dose: 40 mg Pravastatin Sodium (Pravastatin Sod 40 Mg Tab) 40 mg PO HS [facility] Stop: 08/14/24 20:59 Ropinirole HCl (Ropinirole Hcl 0.25 Mg Tablet) 0.25 mg PO HS PRN PRN Reason: restless leg syndrome Stop: 08/14/24 04:05 Tramadol HCl (Tramadol Hcl 50 Mg Tablet) 25 - 50 mg PO Q4H PRN PRN Reason: Pain Stop: 08/14/24 04:10 Pending Studies at Discharge: Yes Studies:: Blood cultures Stand-Alone Forms: [facility] Skilled Items Patient informed of condition?: Yes DNR: No Discharge Level of Care: Other Communicable Disease: No Discharge Prognosis: Other Lines: Peripheral IV Urinary Catheter: No Medications and DC Order Prescriptions: Continued multivitamin [Multiple Vitamins] Tablet 1 tab PO QAM omeprazole 40 mg capsule,delayed release(DR/EC) 40 mg PO QAM nitroglycerin 0.4 mg tablet, sublingual 0.4 mg Sublingual UD PRN (Reason: Chest Pain) cholecalciferol (vitamin D3) [Vitamin D3] 50 mcg (2,000 unit) Tablet 4,000 unit PO QAM montelukast [Singulair] 10 mg Tablet 10 mg PO QAM ropinirole 0.25 mg tablet 0.25 mg PO HS PRN (Reason: restless leg syndrome) Rx Instructions: 07/15/24 UNABLE TO CONFIRM THIS MED PT REPORTS SHE HAS NOT TAKEN THIS MED SINCE SHE WAS ON A CRUISE, ON EXTERNAL PHARMACY LIST FOR 06/07/24. ferrous sulfate [iron] 325 mg (65 mg iron) Tablet 325 mg PO DAILY lisinopril 10 mg tablet 20 mg PO DAILY Hold Instructions: Resume on 07/13/24. until seen by primary care doctor or rn document improvement Rx Instructions: 07/15/24 PT STATES SHE IS NOT CURRENTLY TAKING THIS MED aspirin 81 mg Tablet,Delayed Release (Dr/Ec) 81 mg PO DAILY Qty: 30 0RF Rx Instructions: 07/14/24 : PT REPORTS SHE DOES NOT TAKE THIS MED EVERY DAY IT UPSETS HER STOMACH. SAYS SHE TAKES IT APPROX EVERY OTHER DAY. guaifenesin [Mucinex] 600 mg Tablet Extended Release 12hr 600 mg PO Q12 Qty: 14 0RF metoprolol succinate 25 mg Tablet Extended Release 24 Hr 25 mg PO BID Qty: 60 0RF Rx Instructions: 07/15/24 pT REORTS SHE DOES NOT BELIEVE SHE TAKES THIS MED ( ON EXTERNAL PHARMACY LIST FOR 07/10/24, ALSO LISTED ON ADVERSE REACTION LIST). clopidogrel 75 mg Tablet 75 mg PO QAM Qty: 30 0RF Rx Instructions: 07/14/24 : PT STATES SHE DOES NOT BELIEVE SHE TAKES THIS MED WHICH IS ON HER EXTERNAL PHARMACY LIST 07/10/24. pravastatin 40 mg Tablet 40 mg PO HS Qty: 30 0RF Rx Instructions: 07/15/24 PT STATES SHE DOES NOT TAKE THIS MED ( ON EXTERNAL PHARMACY LIST FOR 07/10/24). Discharge Orders: Discharge Order (Routine); Ordered 07/15/24 Ordered By: Rolo Solorzano Admission Data Admit Date/Time: 07/15/24 03:30 Attending Provider: Juaquin Murguia Admit Provider: Rolo Solorzano Primary Care Provider: Rosy Cummins Other Providers: Rolo Solorzano; Lisa Duke; Gilberto Bolanos; Rashaun Felix; Clemente Flores; Ivan Burks.; Jay Edwards; Ashleigh Quiroz; Tiny Voss; Maria E Foley; Lisa Siddiqui.; Moy Morales.; Delvin Flores; Nivia Chacon; Marianne Omer; Ondina Torres; Marie Ballesteros; Elias Obrien; Allie Narayan; Aarti Browning
[2024-07-16] MEDS ORDERED: VANCOMYCIN HCL 1,250 MG in SODIUM CHLORIDE 0.9% 250 ML IV SCH (04:00)
--- NOTE | 2024-07-16 06:12 | Electrocardiogram Report ---
Test Reason : Blood Pressure : */* mmHG Vent. Rate : 76 BPM Atrial Rate : 76 BPM P-R Int : 166 ms QRS Dur : 88 ms QT Int : 404 ms P-R-T Axes : 40 65 90 degrees QTcB Int : 454 ms Normal sinus rhythm Nonspecific T wave abnormality When compared with ECG of 07-Jul-2024 12:34, Nonspecific T wave abnormality now evident in Lateral leads Confirmed by Jong Bryson ([id number]) on 07/16/2024 6:12:05 AM Referred By: REFERRED SELF Confirmed By: Jong Bryson
--- NOTE | 2024-07-16 06:12 | Electrocardiogram Report ---
Test Reason : Blood Pressure : */* mmHG Vent. Rate : 94 BPM Atrial Rate : 94 BPM P-R Int : 172 ms QRS Dur : 86 ms QT Int : 386 ms P-R-T Axes : 39 41 90 degrees QTcB Int : 482 ms Normal sinus rhythm Prolonged QT Abnormal ECG When compared with ECG of 14-Jul-2024 23:02, QT has lengthened Confirmed by Jong Bryson ([id number]) on 07/16/2024 6:12:40 AM Referred By: REFERRED SELF Confirmed By: Jong Bryson
--- NOTE | 2024-07-16 07:21 | Discharge Summary ---
Date of Service July 16, 2024 Admission HPI Per Admitting Provider History obtained from patient and records. Patient is a fair historian. Patient struggling to recall some details of recent events. Medical history significant for CAD status post recent stent, PAF status post ablation, post ablation pericarditis, proximal ascending thoracic aorta enlargement, hypertension, hyperlipidemia, COPD, EUSEBIA on CPAP, prediabetes, chronic anemia (baseline hemoglobin 8-9), migraine, endometrial cancer status post surgery, stress incontinence as per records, mood disorder. Recent confinement June 29 to July 10, 2024 for NSTEMI status post stent. Two-vessel CAD status post MIRIAM to mid LAD and proximal left circumflex marginal. Circumflex marginal procedure complicated by dissection with branch occlusion resulting in periprocedural myocardial infarction. Patient also found to have multifocal pneumonia present on admission. Patient discharged home 5 days ago on dual antiplatelet Rx, beta-kam, and Augmentin Rx. Patient had sudden onset left-sided chest tightness going to the arm with shortness of breath, headache, dizziness yesterday. Patient claims to be compliant with no home medications but struggled to name pills upon EMS query as per report. Home meds do not look like they have been touched as per EMS. Patient missed outpatient appointment with PCP 2 days ago for a reason patient cannot remember currently. Patient not taking aspirin daily due to stomach irritation as per patient. Patient currently denies abdominal pain/black/bloody stools. Home freezer concerns as per outpatient PCP notes. Chest pain relieved by nitroglycerin administration at the ER. Patient struggled acknowledging home medications when queried by ED education technician. 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 Discharge Data Allergies Allergy/AdvReac Type Severity Reaction Status Date / Time Sulfa (Sulfonamide Allergy Intermediate METAL Verified 07/15/24 01:19 Antibiotics) TASTE IN MOUTH, TONGUE SWELLS UP tartaric acid Allergy Unknown Unknown Verified 07/15/24 01:19 valacyclovir [From Valtrex] Allergy Unknown caused Verified 07/15/24 01:19 kidney stones cetirizine [From Zyrtec] AdvReac Severe Headache Verified 07/15/24 01:19 metoprolol AdvReac Intermediate "feel Verified 07/15/24 01:19 spacey" oxycodone AdvReac Mild Headache Verified 07/15/24 01:19 Consultations 07/15/24 03:11 ED Decision to Admit Stat 07/15/24 04:08 Consult Cardiology Routine 07/15/24 20:59 Burn CD for patient Stat Ordered Studies 07/14/24 23:48 CT head/brain wo con Stat 07/15/24 15:51 MRI Brain [MR brain wo/w con] Urgent Hospital Course (1) Non-ST elevation OK (NSTEMI): NSTEMI Mitral valve vegetation Vs Thrombus H/O stent to the LAD and prox LCx marginal complicated by dissection of the LCx with branch vessel occlusion and periprocedural OK in Jun 2024 ?? Stent stenosis --CXR:Mild cardiomegaly with suggestion of congestive changes --ECHO: Vegetation thrombus. Left ventricle EF 40 to 45%. Large sized apical, anterior, posterior and lateral wall motion abnormality with hypokinesis of the segments. Mild mitral regurgitation. Large mobile echodense mass measuring 1.4 cm on the valvular side of the posterior mitral leaflet possible vegetation, thrombus. -?? Medication compliance -- Continue aspirin, Plavix, metoprolol, lisinopril, statin Continue IV heparin Will likely need KELSEA for further evaluation of mitral valve/mass Consider empiric IV antibiotics for possible infective endocarditis. Appreciate cardiology input Check nasal MRSA Acute on chronic systolic and diastolic dysfunction Ischemic cardiomyopathy Monitor volume status closely Consider diuretics when appropriate Paroxysmal atrial fibrillation S/P ablation, post ablation pericarditis Continue metoprolol Thoracic aortic aneurysm Continue current medication Follow-up as outpatient Hyperlipidemia Continue statin Hypertension Continue metoprolol, lisinopril Monitor blood pressure COPD EUSEBIA on CPAP No signs of exacerbation Monitor Morbid obesity BMI 39.7 Prediabetes HbA1c 5.9 H/O Endometrial cancer S/P surgery DVT Px: IV heparin Code Status Full code (Preceding documentation as per admitting provider.) IV vancomycin and ceftriaxone initiated today for possible infective endocarditis after blood CS obtained following abnormal TTE. Cardiology recommended Brain MRI as part of stroke workup. Brain MRI showed 1. Mild age-related cerebral involutional changes were noted. 2. Multiple small deep periventricular white matter changes related to small vessel disease. 3. Left deep cerebellar small lacunar infarction noted. Automatic Gl[employer] Former [place] [facility] [place] evaluation given complexity. [facility] [place] support specialist recommended admission under medical service given other medical issues. Patient kindly accepted for transfer by Dr. Gonzalez of [facility] [place]. Total time to prepare this discharge summary was less than 10 minutes. Text document was generated using [employer] voice recognition software. It may contain grammatical or spelling errors. Kindly contact undersigned for clarification of any documentation item in question. Discharge Plan Discharge Items Patient Disposition: Transfer Acute Care Hospital Reason For Visit: CHF, ACS Discharge Diagnosis: NSTEMI Mitral valve vegetation Vs Thrombus Suspected infective endocarditis Suspected stent stenosis Acute on chronic systolic and diastolic dysfunction Ischemic cardiomyopathy Activity: Per Instructions section Non-emergency contact: Primary Care Provider and [employer] Former Call non-emergency contact if: you have any medication questions, your symptoms worsen, your pain is concerning for you and you have a fever Follow-up/Referrals: Rosy Cummins PA-C [Primary Care Provider] - Diet: Heart Healthy Addtl Attending Provider Instructions: -- Follow-up with your physician at [facility] for further management -- Your omeprazole need to be changed to pantoprazole as it could interact with clopidogrel. Discussed with your physician for further recommendations. --You will likely need transesophageal echocardiogram for further evaluation of your mitral valve. Discussed with your net application support specialist/CT surgeon for further recommendations. Seek immediate medical attention if your symptoms reoccur or worsen Please take all medications as instructed on discharge list below. Please call if you have any questions or problems. You can reach a [facility] [address] hospitalist on duty at [facility] 24 hours a day by calling [phone] Home Care: * Take your medications exactly as directed. Don't skip doses. * Remember that recovery after a heart attack takes time. Plan to rest for at lease 4-8 weeks while you recover. Then return to normal activity when your doctor says it's okay. * Ask your doctor about joining a heart rehabilitation program. * Tell your doctor if you are feeling depressed. Feelings of sadness are common after a heart attack, but it is important that you speak to someone if you are feeling overwhelmed by these feelings. * If you are having chest pain, call 911 for an ambulance. Do NOT drive yourself to the hospital. * Ask your family members to learn CPR. * Learn to take your own blood pressure and pulse. Keep a record of your results. Ask your doctor when you should seek emergency medical attention. He or she will tell you which blood pressure reading is dangerous. Lifestyle Changes: * Maintain a healthy weight. Get help to lose any extra pounds. * Cut back on salt. * Limit canned, dried, packaged, and fast foods. * Don't add salt to your food. * Season foods with herbs instead of salt when you cook. * Break the smoking habit. Enroll in a stop-smoking program to improve your chances of success. * Limit fatty foods. * Ask your doctor about having your lipid levels checked regularly. * Build up your activity according to your doctor's recommendation. * Ask your doctor when it's okay to resume sexual activity. * Tell your doctor about any erectile dysfunction (ED) medication you are taking. Some ED medications are not safe if you take certain heart medications. * Try to manage stress. Follow Up: It is important for you to keep your follow up appointments with your medical provider. Call your Primary Care doctor if any of the following symptoms or problems start or get worse: * Shortness of breath or difficulty breathing * Wake up at night short of breath * Chest pain * Cough * Swelling of your hands, feet, or legs * More fatigued or tired with your normal activity * Palpitations - sudden fast heart beats WEIGHT * Weigh yourself every morning after using the bathroom. * Use the same scale. * Wear the same amount of clothing. * Write your weight down on a chart. * Call your Primary Care doctor if you gain more than 2-3 pounds in 1-2 days. MEDICATIONS * Use this discharge instruction sheet for medication instructions. * Take your medications at the time your doctor ordered. * Do not skip a dose of your medicines. * If you miss a dose of medicine, take it as soon as possible, but DO NOT DOUBLE A DOSE. * Read your medicine information when you get home. * Know all of the side effects of your medicine. If in doubt, ask your pharmacist * Call your Primary Care doctor's office if you have any side effects. * Be sure all of your doctors know what medicine and herbs you take (including cold, flu, and herbal medicine). Take the following with you to your follow-up doctor appointments: * Weight Chart * Medication List * List of questions Do not drink excessive alcohol, beer or wine. Addtl [employer] Work[employer] Provider Instructions: Date of Service: July 15, 2024 Current Inpatient Medications Acetaminophen (Acetaminophen 325 Mg Tab) 650 mg PO QID PRN PRN Reason: pain/fever Stop: 08/14/24 04:14 Last Admin: 07/15/24 14:43 Dose: 650 mg Aspirin (Aspirin 81 Mg Ectab) 81 mg PO DAILY [facility] Stop: 08/14/24 04:09 Last Admin: 07/15/24 05:33 Dose: 81 mg Clopidogrel Bisulfate (Clopidogrel Bisulfate 75 Mg Tab) 75 mg PO QAM [facility] Stop: 08/14/24 04:09 Last Admin: 07/15/24 05:33 Dose: 75 mg Ferrous Sulfate (Ferrous Sulfate 325 Mg Tab) 325 mg PO DAILY [facility] Stop: 08/14/24 08:59 Last Admin: 07/15/24 08:13 Dose: 325 mg Heparin Sodium/Dextrose (Heparin 17948 Unit/500 Ml D5w) 25,000 units in 500 mls @ 26 mls/hr IV .[id number] [facility]; Protocol Stop: 08/14/24 04:29 Last Titration: 07/15/24 12:59 Dose: 1,300 units/hr, 26 mls/hr Promethazine HCl (Phenergan) 6.25 mg in 50.25 mls @ 201 mls/hr IV Q6H PRN PRN Reason: Nausea And Vomiting Stop: 08/14/24 04:07 Ceftriaxone Sodium (Rocephin) 2,000 mg in 50 mls @ 100 mls/hr IV Q24H [facility] Stop: 08/26/24 15:59 Vancomycin HCl 2,000 mg/ (Sodium Chloride) 540 mls @ 200 mls/hr IV ONE ONE Stop: 07/15/24 18:26 Lisinopril (Lisinopril 20 Mg Tab) 20 mg PO DAILY [facility] Stop: 08/14/24 08:59 Last Admin: 07/15/24 08:13 Dose: 20 mg Metoprolol Succinate (Metoprolol Succ 25mg Ext Rel Tab) 25 mg PO BID [facility] Stop: 08/14/24 08:59 Last Admin: 07/15/24 08:13 Dose: 25 mg Miscellaneous Information (Vancomycin Consult Active) 1 each N/A UD PRN PRN Reason: Consult Stop: 08/14/24 15:14 Montelukast Sodium (Montelukast Sodium 10 Mg Tablet) 10 mg PO QAM [facility] Stop: 08/14/24 08:59 Last Admin: 07/15/24 08:13 Dose: 10 mg Morphine Sulfate (Morphine Sulfate 4 Mg/Ml 1 Ml Carp\\Vial) 4 mg IV Q4H PRN PRN Reason: Pain Stop: 07/29/24 04:07 Multivitamins/Minerals (Cerovite Adv Formula Tab) 1 tab PO QAM [facility] Stop: 08/14/24 08:59 Last Admin: 07/15/24 08:13 Dose: 1 tab Nitroglycerin (Nitroglycerin Sl 0.4 Mg/Tab Tab) 0.4 mg SL Q5M PRN PRN Reason: Chest Pain Stop: 08/14/24 04:10 Pantoprazole Sodium (Pantoprazole 40 Mg Tab) 40 mg PO BID [facility] Stop: 08/14/24 04:09 Last Admin: 07/15/24 05:33 Dose: 40 mg Pravastatin Sodium (Pravastatin Sod 40 Mg Tab) 40 mg PO HS [facility] Stop: 08/14/24 20:59 Ropinirole HCl (Ropinirole Hcl 0.25 Mg Tablet) 0.25 mg PO HS PRN PRN Reason: restless leg syndrome Stop: 08/14/24 04:05 Tramadol HCl (Tramadol Hcl 50 Mg Tablet) 25 - 50 mg PO Q4H PRN PRN Reason: Pain Stop: 08/14/24 04:10 Pending Studies at Discharge: Yes Studies:: Blood cultures Stand-Alone Forms: [facility] Skilled Items Patient informed of condition?: Yes DNR: No Discharge Level of Care: Other Communicable Disease: No Discharge Prognosis: Other Lines: Peripheral IV Urinary Catheter: No Medications and DC Order Prescriptions: Continued multivitamin [Multiple Vitamins] Tablet 1 tab PO QAM omeprazole 40 mg capsule,delayed release(DR/EC) 40 mg PO QAM nitroglycerin 0.4 mg tablet, sublingual 0.4 mg Sublingual UD PRN (Reason: Chest Pain) cholecalciferol (vitamin D3) [Vitamin D3] 50 mcg (2,000 unit) Tablet 4,000 unit PO QAM montelukast [Singulair] 10 mg Tablet 10 mg PO QAM ropinirole 0.25 mg tablet 0.25 mg PO HS PRN (Reason: restless leg syndrome) Rx Instructions: 07/15/24 UNABLE TO CONFIRM THIS MED PT REPORTS SHE HAS NOT TAKEN THIS MED SINCE SHE WAS ON A CRUISE, ON EXTERNAL PHARMACY LIST FOR 06/07/24. ferrous sulfate [iron] 325 mg (65 mg iron) Tablet 325 mg PO DAILY lisinopril 10 mg tablet 20 mg PO DAILY Hold Instructions: Resume on 07/13/24. until seen by primary care doctor or net application support specialist Rx Instructions: 07/15/24 PT STATES SHE IS NOT CURRENTLY TAKING THIS MED aspirin 81 mg Tablet,Delayed Release (Dr/Ec) 81 mg PO DAILY Qty: 30 0RF Rx Instructions: 07/14/24 : PT REPORTS SHE DOES NOT TAKE THIS MED EVERY DAY IT UPSETS HER STOMACH. SAYS SHE TAKES IT APPROX EVERY OTHER DAY. guaifenesin [Mucinex] 600 mg Tablet Extended Release 12hr 600 mg PO Q12 Qty: 14 0RF metoprolol succinate 25 mg Tablet Extended Release 24 Hr 25 mg PO BID Qty: 60 0RF Rx Instructions: 07/15/24 pT REORTS SHE DOES NOT BELIEVE SHE TAKES THIS MED ( ON EXTERNAL PHARMACY LIST FOR 07/10/24, ALSO LISTED ON ADVERSE REACTION LIST). clopidogrel 75 mg Tablet 75 mg PO QAM Qty: 30 0RF Rx Instructions: 07/14/24 : PT STATES SHE DOES NOT BELIEVE SHE TAKES THIS MED WHICH IS ON HER EXTERNAL PHARMACY LIST 07/10/24. pravastatin 40 mg Tablet 40 mg PO HS Qty: 30 0RF Rx Instructions: 07/15/24 PT STATES SHE DOES NOT TAKE THIS MED ( ON EXTERNAL PHARMACY LIST FOR 07/10/24). Discharge Orders: Discharge Order (Routine); Ordered 07/15/24 Ordered By: Rolo Solorzano Admission Data Admit Date/Time: 07/15/24 03:30 Attending Provider: Juaquin Murguia Admit Provider: Rolo Solorzano Primary Care Provider: Rosy Cummins Other Providers: Rolo Solorzano; Lisa Duke; Gilberto Bolanos; Rashaun Felix; Clemente Flores; Ivan Burks; Jay Edwards; Ashleigh Quiroz; Tiny Voss; Maria E Foley; Lisa Siddiqui; Moy Morales; Delvin Flores; Nivia Chacon; Marianne Omer; Ondina Torres; Marie Ballesteros; Elias Obrien; Allie Narayan; Aarti Browning
[2024-07-17] MEDS ORDERED: VANCOMYCIN LEVEL ONE (03:00)
== END 2024-07-15 22:25 | disposition short-term general hospital (02) | DRG 280 ==
LOC: ED 22:57 → EDINP 07-15 03:30 → 2S 07-15 04:21